=== PATIENT | male | born 1970 | race Two or more races ===

== ENCOUNTER 2023-11-12 13:17 | Outpatient (OUT) | payer OTHER, SELFPAY ==
--- NOTE | 2023-11-12 13:26 | XR_ITS ---
The [address] [address] Patient Name: ANGELLA FERNANDEZ MRN: [id number] date: 1970 Sex: M Assigned Patient Location: RAD Current Patient Location: [facility] Accession/Order Number: [id number] Exam Date: 11/12/2023 13:28 Report Date: 11/12/2023 14:20 At the request of: NON-STAFF PHYSICIAN Procedure: XR hip RT min 2V EXAM: Right hip. HISTORY: . Right Hip Pain . COMPARISON: None. TECHNIQUE: 2 views FINDINGS: No fracture or dislocation of the right hip is noted. Joint spaces well-maintained. Surrounding soft tissues are unremarkable. XR/XR hip RT min 2V IMPRESSION: Negative right hip. Electronically authenticated by: SAMIR GORMAN Date: 11/12/2023 14:20
== END 2023-11-12 13:18 | disposition home or self-care (01) ==
LOC: RAD 13:22
DX: M25.551 Pain in right hip (principal)
CPT/HCPCS: 73502

== ENCOUNTER 2023-12-29 17:13 | Inpatient (IN) | payer OTHER, SELFPAY ==
[2023-12-29 17:14] VITALS: BP 142/71; PULSE 101; TEMP 36.6; O2SAT 90; BMI 29.3
--- NOTE | 2023-12-29 17:24 | ED.ALCOHOL1 ---
HPI - Alcohol General Chief Complaint: Extremity Injury, Lower Stated Complaint: HIP PAIN Time Seen by Provider: 12/29/23 17:23 Source: patient Mode of arrival: ambulance Limitations: altered mental status Limitations comment: Alcohol intoxication History of Present Illness HPI narrative: This patient was brought to us by ambulance from a local alcohol rehab center for evaluation. He was just in the rehab program approximately a month ago but has now continued drinking. At their assessment today he was complaining of severe right hip pain and he clearly was intoxicated. He lives in [facility] near [place] but has been in this rehab center up in this community once before and is hopefully to get in again. He says he sees a Dr. Govea, orthopedic surgeon and saw him in [facility] and is considering surgery on his hip in 2 months, but nothing has been done so far. He says it has been due to wear and tear but not really specific traumatic event and he denies any new or recent trauma. He says he had at least 8-10 beers and some vodka over the last couple hours. Does not have any pain in his left hip or upper extremities no other trauma or injury. Related Data Home Medications ?Medication ?Instructions ?Recorded ?Confirmed amlodipine 10 mg tablet 10 mg PO DAILY 12/29/23 12/29/23 Allergies Allergy/AdvReac Type Severity Reaction Status Date / Time No Known Drug Allergies Allergy Verified 12/29/23 17:19 Exam Narrative Exam Narrative: Awake alert smells heavily of alcohol byproducts but he is cooperative at this time on arrival. Vital signs are as noted. While lying sitting up position he is able to bend his knee up and has no pain in the right knee when he does that but has some discomfort in the right hip. There is no evidence of dislocation. There is no external rotation or shortening of the hip. Neurovascular examination and pulses to the distal extremity are normal. He has spontaneous unrestricted movement of the left lower extremity and he has no injury or discomfort to palpation and movement of his upper extremities. He has no respiratory distress with normal pulse to palpation. Pulse exam straight pulse oximetry is slightly low as noted. However he had no wheeze rales or rhonchi. Constitutional Vital Signs, click to edit/add: Last Vital Signs Temp 97.9 F 12/29/23 17:14 Pulse 101 H 12/29/23 17:14 Resp 18 12/29/23 17:14 BP 142/71 H 12/29/23 17:14 Pulse Ox 90 L 12/29/23 17:14 O2 Del Method Room Air 12/29/23 17:14 Course Vital Signs Vital signs: Vital Signs Temperature 97.9 F 12/29/23 17:14 Pulse Rate 101 H 12/29/23 17:14 Respiratory Rate 18 12/29/23 17:14 Blood Pressure 142/71 H 12/29/23 17:14 Pulse Oximetry 90 L 12/29/23 17:14 Oxygen Delivery Method Room Air 12/29/23 17:14 Temperature 97.9 F 12/29/23 17:14 Pulse Rate 101 H 12/29/23 17:14 Respiratory Rate 18 12/29/23 17:14 Blood Pressure 142/71 H 12/29/23 17:14 Pulse Oximetry 90 L 12/29/23 17:14 Oxygen Delivery Method Room Air 12/29/23 17:14 MDM - Alcohol MDM Narrative Medical decision making narrative: Patient laboratory testing confirms both acute and chronic nutritional disorders related to his alcohol event. He is highly intoxicated. 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 At this time we will start replacing his magnesium and potassium. He will be given nonnarcotic analgesics. He will need IV hydration and stabilization as an inpatient my opinion. I will speak to the hospitalist in regards to these issues Lab Data Labs: Lab Results 12/29/23 12/29/23 Range/Units 17:40 18:12 WBC 7.7 (4.0-11.0) 10^3/uL RBC 4.50 L (4.70-6.10) 10^6/uL Hgb 15.0 (14.0-18.0) g/dL Hct 43.2 (42.0-54.0) % MCV 96.0 H (80.0-94.0) fL MCH 33.3 (25.9-34.0) pg MCHC 34.7 (29.9-35.2) g/dL RDW 15.4 H (11.0-15.0) % Plt Count 159 (150-450) 10^3/uL MPV 8.9 L (9.5-13.5) fL Neut % (Auto) 64.3 (43.0-75.0) % Lymph % (Auto) 17.0 L (20.5-60.0) % [place] % (Auto) 16.5 H (1.7-12.0) % Eos % (Auto) 0.8 L (0.9-7.0) % Baso % (Auto) 0.8 (0.2-2.0) % Neut # (Auto) 5.0 (1.4-6.5) 10^3/uL Lymph # (Auto) 1.3 (1.2-3.8) 10^3/uL [place] # (Auto) 1.3 H (0.3-0.8) 10^3/uL Eos # (Auto) 0.1 (0.0-0.7) 10^3/uL Baso # (Auto) 0.1 (0.0-0.1) 10^3/uL Abs Immat Gran (auto) 0.05 H (0.00-0.03) 10^3/uL Imm/Tot Granulo (auto) 0.6 H (0.0-0.5) % Sodium 139 (136-145) mmol/L Potassium 2.8 L* (3.5-5.1) mmol/L Chloride 98 (98-107) mmol/L Carbon Dioxide 28.4 (21.0-32.0) mmol/L Anion Gap 15.4 BUN 20.0 H (7.0-18.0) mg/dL Creatinine 0.94 (0.70-1.30) mg/dL Est GFR ( Amer) >60 (>=60) Est GFR (Non-Af Amer) >60 (>=60) BUN/Creatinine Ratio 21.3 Glucose 95 (74-106) mg/dL Calcium 8.7 (8.5-10.1) mg/dL Phosphorus 2.2 L (2.6-4.7) mg/dL Magnesium 1.5 L (1.8-2.4) mg/dL Total Bilirubin 1.8 H (0.2-1.0) mg/dL AST 103 H (15-37) U/L ALT 67 H (16-63) U/L Alkaline Phosphatase 98 (46-116) U/L Total Protein 6.7 (6.4-8.2) g/dL Albumin 3.2 L (3.4-5.0) g/dL Globulin 3.5 g/dL Albumin/Globulin Ratio 0.9 Urine Opiates Screen Negative (NEGATIVE) Ur Buprenorphine Scrn Negative (NEGATIVE) Ur Oxycodone Screen Negative (NEGATIVE) Urine Methadone Screen Negative (NEGATIVE) Ur Barbiturates Screen Negative (NEGATIVE) U Tricyclic Antidepress Negative (NEGATIVE) Ur Phencyclidine Scrn Negative (NEGATIVE) Ur Amphetamines Screen Negative (NEGATIVE) U Methamphetamines Scrn Negative (NEGATIVE) U Benzodiazepines Scrn Negative (NEGATIVE) Urine Cocaine Screen Negative (NEGATIVE) U Cannabinoids Screen Negative (NEGATIVE) Ethanol Quant 397 mg/dL Discharge Plan Discharge Chief Complaint: Extremity Injury, Lower Clinical Impression: Complication of electrolyte disorder, Acute pain of right hip, Acute alcohol intoxication Patient Disposition: Admitted as Observation Time of Disposition Decision: 18:41 Prescriptions / Home Meds: No Action amlodipine 10 mg tablet 10 mg PO DAILY Print Language: Grenadian Referrals: Physician,Non-Staff, MD [Primary Care Provider] - 1 week
--- NOTE | 2023-12-29 17:26 | XR_ITS ---
The [address] [address] Patient Name: ANGELLA FERNANDEZ MRN: [id number] date: 1970 Sex: M Assigned Patient Location: ER Current Patient Location: ED.MAIN Accession/Order Number: [id number] Exam Date: 12/29/2023 17:46 Report Date: 12/29/2023 18:09 At the request of: ANH GREGORY Procedure: XR chest 1V EXAM: XR chest 1V HISTORY: Dyspnea. COMPARISON: None. TECHNIQUE: AP erect portable chest radiograph performed. FINDINGS: The trachea is midline. The cardiomediastinal silhouette and hilar shadows are normal. There is mild elevation of the right hemidiaphragm. The lung hanson are clear. There is no pneumothorax or osseous abnormality. XR/XR chest 1V IMPRESSION: Mild elevation of the right hemidiaphragm. The AP erect portable chest radiograph is otherwise unremarkable. Electronically authenticated by: GABRIELLA BAUTISTA Date: 12/29/2023 18:09
[2023-12-29] MEDS: THIAMINE HCL 200 MG/2 ML VIAL 100 MG IM (17:43)
[2023-12-29] MEDS: 0.9 % SODIUM CHLORIDE 1,000 ML 999 ML IV (17:43)
--- OUTSIDE RECORDS SUMMARY | 2023-12-29 17:46 | XMS_ITS | CCD ---
Author Organization [facility] Care Team Providers Care Zone Supervisor Firearms Name Role Phone Apolinar Cameron Primary Care Provider Cameron II, DO Apolinar E Primary Care Provider Yoli HOWARD, Glenny Moreno Unavailable José Miguel SANTOS MD, John E Primary Care Provider [phone] CAMERON TOM, APOLINAR E Primary Care Unavailable Cameron II, DO Apolinar E Primary Care Provider Glenny Kent MD Unavailable Cameron II, DO Apolinar E Primary Care Provider [phone] Glenny Kent MD Unavailable MONIK JOHNSON Attending Unavailable NO PCP, NO PCP Primary Care Unavailable SELF, SELF Referring Unavailable MARIIA GOVEA Attending Unavailable CAMERON II, APOLINAR E Primary Care Unavailable CAMERON II, APOLINAR E Attending Unavailable CAMERON II, APOLINAR E Referring Unavailable CAMERON II, APOLINAR E Primary Care Unavailable TERESA MO Attending Unavailable CAMERON II, APOLINAR E Referring Unavailable CAMERON II, APOLINAR E Primary Care Unavailable SELF, SELF Referring Unavailable CAMERON II, APOLINAR E Attending Unavailable CAMERON II, APOLINAR E Primary Care Unavailable CAMERON II, APOLINAR E Referring Unavailable CAMERON II, APOLINAR E Attending Unavailable CAMERON II, APOLINAR E Primary Care Unavailable CAMERON II, APOLINAR E Referring Unavailable CAMERON II, APOLINAR E Primary Care Unavailable APOLINAR AGOSTO Attending Unavailable CAMERON II, APOLINAR E Attending Unavailable CAMERON II, APOLINAR E Referring Unavailable CAMERON II, APOLINAR E Primary Care Unavailable SELF, SELF Referring Unavailable CAMERON II, APOLINAR E Attending Unavailable CAMERON II, APOLINAR E Primary Care Unavailable IHSAN PINK Attending Unavailable CAMERON II, APOLINAR E Primary Care Unavailable HECTOR EDWARDS Admitting Unavailable MARTHA LUA Attending Unavailable CAMERON II, APOLINAR E Primary Care Unavailable HECTOR EDWARDS Admitting Unavailable APOLINAR CAMERON II Primary Care Unavailable SAMIR WOOTEN Attending Unavailable IHSAN PINK Admitting Unavailable AMY ODOM Attending Unavailable APOLINAR CAMERON II Primary Care Unavailable Medications Current Medications Medication Drug Class(es) Dates Sig (Normalized) Sig (Original) amoxicillin 875 mg / clavulanate 125 mg oral tablet (1 source) Penicillin-class Antibacterial Start: 10-02-2022 End: 10-12-2022 take 1 tablet by mouth every twelve hours Amoxicillin-clavu lanate (Augmentin) 875-125 MG tablet Take 1 tablet by mouth every 12 hours for 10 days. 20 tablet 0 10/02/2022 10/12/2022 Active atorvastatin 40 mg oral tablet (12 sources) HMG-CoA Reductase Inhibitor Start: 09-26-2023 End: 12-07-2023 take 1 tablet by mouth once daily Atorvastatin 40 MG tablet Take 1 tablet by mouth daily. 30 tablet 2 09/26/2023 Active dextromethorphan hydrobromide 2 mg/ml / guaiFENesin 20 mg/ml oral suspension (1 source) Uncompetitive X-ydhwfq-N-aspartat e Receptor Antagonist, Sigma-1 Agonist Start: 03-07-2022 guaiFENesin-dextr omethorphan (ROBITUSSIN DM) 100-10 MG/5ML syrup 5 mL lidocaine 0.05 mg/mg medicated patch (16 sources) Antiarrhythmic, Amide Local Anesthetic Start: 10-23-2023 End: 12-07-2023 lidocaine 5 % Patch patch Place 2 patches on skin every 24 hours. Max of 12 hours of application then remove. 60 patch 12/07/2023 Active melatonin 10 mg oral tablet (1 source) Start: 11-10-2023 Melatonin 10 MG tablet 11/10/2023 Active meloxicam 15 mg oral tablet (1 source) Nonsteroidal Anti-inflammatory Drug Start: 12-11-2023 take 1 tablet by mouth once daily Meloxicam 15 MG tablet Take 1 tablet by mouth daily. 30 tablet 1 12/11/2023 Active Multiple Vitamins-Minerals (Thera-M) tablet (9 sources) Start: 10-25-2023 take 1 tablet by mouth once daily Multiple Vitamins-Minerals (Thera-M) tablet Take 1 tablet by mouth daily. 30 tablet 10/25/2023 Active Start: 10-25-2023 take 1 tablet by gladis th once daily Multiple Vitamins-Minerals (Thera-M) tablet Take 1 tablet by mouth daily. 30 tablet 10/25/2023 Start: 10-25-2023 take 1 tablet by gladis th once daily Multiple Vitamins-Minerals (Thera-M) tablet Take 1 tablet by mouth daily. 30 tablet 0 10/25/2023 Active Start: 10-25-2023 take 1 tablet by gladis th once daily Multiple Vitamins-Minerals (Thera-M) tablet Take 1 tablet by mouth daily. 30 tablet 0 10/25/2023 thiamine 100 mg oral tablet (9 sources) Start: 12-07-2023 End: 12-05-2023 100 mg, Oral, EVERY 8 HOURS (0800/1600/2200), 15 doses, First dose on 12/07/23 at 0800, Last dose on [facility] 12/11/23 at 2200 Start: 12-07-2023 End: 12-05-2023 100 mg, Oral, EVERY 8 HOURS (0800/1600/2200), 15 doses, First dose on 12/07/23 at 0800, Last dose on [facility] 12/11/23 at 2200 Start: 11-10-2023 Thiamine 100 M G tablet 11/10/2023 Active Start: 10-24-2023 End: 12-04-2023 take 1 tablet by mouth once daily thiamine mononitrate 100 MG tablet Take 1 tablet by mouth daily. 30 tablet 10/25/2023 12/04/2023 Discontinued (Medication Reconciliation (suppress cancel msg)) Start: 03-06-2022 End: 03-06-2022 thiamine tablet 100 mg Completed/Discontinued Medications Medication Drug Class(es) Dates Sig (Normalized) Sig (Original) Acetaminophen (8 sources) Start: 12-06-2023 End: 12-07-2023 take 1 tablet by mouth every four hours as needed Acetaminophen (TYLENOL) tablet 650 mg Start: 12-04-2023 End: 12-05-2023 650 mg, Oral, EVERY 6 HOURS WHILE AWAKE, First dose on [facility] 12/04/23 at 1800, Until Discontinued, Maximum dose of acetaminophen is 4000 mg from all sources in 24 hours. Start: 12-04-2023 End: 12-04-2023 take 4000 mg by mouth every twenty-four hours 975 mg, Oral, ONCE, 1 dose, On [facility] 12/04/23 at 0945, Maximum dose of acetaminophen is 4000 mg from all sources in 24 hours. Start: 10-23-2023 End: 10-24-2023 take 975 mg by mouth every six hours, then take 4000 mg by mouth every twenty-four hours 975 mg, Oral, EVERY 6 HOURS, First dose on [facility] 10/23/23 at 1945, Until Discontinued Maximum dose of acetaminophen is 4000 mg from all sources in 24 hours. Start: 10-23-2023 End: 10-24-2023 take 1 tablet by mouth every four hours as needed Acetaminophen (TYLENOL) tablet 650 mg acetaminophen 325 mg / HYDROcodone bitartrate 5 mg oral tablet (4 sources) Opioid Agonist Start: 12-07-2023 End: 12-12-2023 take 1 tablet by mouth every six hours as needed hydroCODone-acetaminophen 5-325 MG tablet Indications: Pain of right hip Take 1 tablet by mouth every 6 hours as needed for up to 5 days. 20 tablet 12/07/2023 12/11/2023 Discontinued (Therapy completed) [id number] 200 actuat albuterol 0.09 mg/actuat metered dose inhaler (6 sources) beta2-Adren ergic Agonist Start: 10-02-2022 End: 10-23-2023 take 2 puff(s) by inhalation every six hours as needed for wheezing Albuterol (ProAir HFA) 108 (90 Base) MCG/ACT Aero Soln inhaler Inhale 2 puffs every 6 hours as needed for Wheezing for up to 10 days. 18 g 1 10/02/2022 10/23/2023 Discontinued (Medication Reconciliation (suppress cancel msg)) Start: 01-11-2021 End: 10-02-2022 take 2 puff(s) by inhalation every six hours as needed for wheezing albuterol (ProAir HFA) 108 (90 Base) MCG/ACT Aero Soln inhaler Inhale 2 puffs every 6 hours as needed for Wheezing for up to 10 days. 1 Inhaler 0 01/11/2021 10/02/2022 Discontinued (Reorder) aluminum hydroxide 64 mg/ml oral suspension (5 sources) Start: 12-04-2023 End: 12-07-2023 take 640 mg by mouth every six hours as needed Start: 10-23-2023 End: 10-24-2023 take 640 mg by mouth every six hours as needed 640 mg, Oral, EVERY 6 HOURS NEEDED, Starting on [facility] 10/23/23 at 1939, Until Fri10/24/23 at 2338, Indigestion, if SCr greater than 1.4. SHAKE WELL aluminum hydroxide 40 mg/ml / magnesium hydroxide 40 mg/ml / simethicone 4 mg/ml oral suspension (5 sources) Start: 12-04-2023 End: 12-07-2023 take 30 mL by mouth every six hours as needed Start: 10-23-2023 End: 10-24-2023 take 30 mL by mouth every six hours as needed 30 mL, Oral, EVERY 6 HOURS NEEDED, Starting on [facility] 10/23/23 at 1939, Until Fri10/24/23 at 2338, Other, Indigestion, if SCr Less than or equal to 1.4 SHAKE WELL amLODIPine 5 mg oral tablet (20 sources) Dihydropyridine Calcium Channel Eunice Start: 12-04-2023 End: 12-07-2023 take 10 mg by mouth once daily 10 mg, Oral, DAILY, First dose on Fri12/06/23 at 0900, Until Discontinued Start: 10-24-2023 End: 10-24-2023 take 10 mg by mouth once daily 10 mg, Oral, DAILY, Fir st dose on Fri10/24/23 at 0900, Until Discontinued Start: 09-15-2023 take 1 tablet by gladis th once daily amLODIPine 10 MG tablet TAKE 1 TABLET BY MOUTH DAILY 30 tablet 2 09/15/2023 Active Start: 08-18-2023 take 1 tablet by gladis th once daily amLODIPine 10 MG tablet TAKE ONE TABLET BY MOUTH DAILY 30 tablet 0 08/18/2023 Active Start: 06-03-2023 End: 08-29-2023 take 1 tablet by mouth once daily amLODIPine 5 MG tablet Take 1 tablet by mouth daily. 0 06/03/2023 08/29/2023 Discontinued (Medication Reconciliation (suppress cancel msg)) Start: 08-19-2022 End: 01-31-2023 take 1 tablet by mouth once daily amLODIPine 10 MG tablet Take 1 tablet by mouth daily. 30 tablet 2 01/31/2023 Active Start: 09-14-2021 End: 10-25-2021 take 1 tablet by mouth once daily amLODIPine 10 MG tablet Take 1 tablet by mouth daily. 30 tablet 0 09/14/2021 10/25/2021 Discontinued (Reorder) benzonatate 200 mg oral capsule (6 sources) Non-narcotic Antitussive Start: 01-11-2021 End: 10-23-2023 take 1 capsule by mouth three times daily as needed for cough benzonatate 200 MG capsule Take 1 capsule by mouth 3 times daily as needed for Cough for up to 10 days. 30 capsule 0 01/11/2021 10/23/2023 Discontinued (Medication Reconciliation (suppress cancel msg)) calcium chloride 0.0014 meq/ml / potassium chloride 0.004 meq/ml / sodium chloride 0.103 meq/ml / sodium lactate 0.028 meq/ml injectable solution (2 sources) Start: 12-06-2023 End: 12-07-2023 Intravenous, at 100 mL/hr, CONTINUOUS, Starting on 12/06/23 at 1430, Until 12/07/23 at 0729 calcium gluconate IVPB 1 g in 0.9% NaCl IVPB 1,000 mg (2 sources) Start: 12-06-2023 End: 12-07-2023 calcium gluconate IVPB 1 g in 0.9% NaCl IVPB 1,000 mg cloNIDine hydrochloride 0.1 mg oral tablet (1 source) Central alpha-2 Adrenergic Agonist Start: 05-31-2023 End: 08-29-2023 take 1 tablet by mouth once daily cloNIDine 0.1 MG tablet Take 1 tablet by mouth daily. 0 05/31/2023 08/29/2023 Discontinued (Medication Reconciliation (suppress cancel msg)) cyclobenzaprine hydrochloride 10 mg oral tablet (20 sources) Muscle Relaxant Start: 10-14-2023 End: 10-23-2023 take 1 tablet by mouth at bedtime Cyclobenzaprine 5 MG tablet Take 1 tablet by mouth at bedtime. 30 tablet 2 10/14/2023 10/23/2023 Discontinued (Medication Reconciliation (suppress cancel msg)) Start: 02-28-2022 End: 01-31-2023 take 1 tablet by mouth at bedtime Cyclobenzaprine 5 MG tablet Take 1 tablet by mouth at bedtime. 30 tablet 2 01/31/2023 Active Start: 10-25-2021 End: 12-07-2023 take 0.5 tablet by m outh three times daily as needed for muscle spasms Cyclobenzaprine 10 MG tablet Take 0.5 tablets by mouth 3 times daily as needed for Muscle spasms. 0 Active Dextrose 5% and sodium chloride 0.9% 1,000 mL with Potassium chloride 20 mEq, Sodium bicarbonate 100 mEq IV solution (2 sources) Start: 12-06-2023 End: 12-06-2023 Intravenous, CONTINUOUS, Starting on 12/06/23 at 0800, Until 12/06/23 at 1420 diazePAM 2 mg oral tablet (1 source) Benzodiazepine Start: 03-07-2022 End: 03-07-2022 diazePAM (VALIUM) tablet 2 mg diclofenac sodium 75 mg delayed release oral tablet (7 sources) Nonsteroidal Anti-inflammatory Drug End: 12-11-2023 take 1 tablet by mouth twice daily as needed for pain diclofenac EC [address] tablet Take 1 tablet by mouth 2 times daily as needed for Mild Pain or Moderate Pain. 12/11/2023 Discontinued (Therapy completed) doxepin hydrochloride 10 mg oral capsule (1 source) Tricyclic Antidepressant Start: 03-07-2021 End: 10-25-2021 take 1 capsule by mouth at bedtime as needed doxepin 10 MG capsule Take 1 capsule by mouth at bedtime as needed. 90 capsule 1 03/07/2021 10/25/2021 Discontinued (Alternate therapy) escitalopram 10 mg oral tablet (5 sources) Serotonin Reuptake Inhibitor Start: 10-02-2022 End: 10-23-2023 take 1 tablet by mouth once daily Escitalopram (Lexapro) 10 MG tablet Take 1 tablet by mouth daily. 30 tablet 1 10/02/2022 10/23/2023 Discontinued (Medication Reconciliation (suppress cancel msg)) 2 ml famotidine 10 mg/ml injection (1 source) Histamine-2 Receptor Antagonist Start: 04-30-2023 End: 04-30-2023 famotidine (PF) (PEPCID) injection 20 mg folic acid 1 mg oral tablet (5 sources) Start: 12-04-2023 End: 12-05-2023 take 1 mg by mouth once daily 1 mg, Oral, DAILY, First dose on Fri12/04/23 at 1345, Until Discontinued Start: 10-24-2023 End: 10-24-2023 take 1 mg by mouth once daily 1 mg, Oral, DAILY, First dose on Fri10/24/23 at 0900, Until Discontinued Start: 05-29-2023 End: 08-29-2023 take 1 tablet by mouth once daily Folic acid 1 MG tablet Take 1 tablet by mouth daily. 0 05/29/2023 08/29/2023 Discontinued (Medication Reconciliation (suppress cancel msg)) Start: 03-06-2022 End: 03-06-2022 folic acid (FOLVITE) tablet 1 mg gabapentin 300 mg oral capsule (3 sources) Anti-epileptic Agent Start: 02-26-2023 End: 10-23-2023 take 1 capsule by mouth at bedtime Gabapentin 300 MG capsule Indications: Periodic limb movement disorder Take 1 capsule by mouth at bedtime. 23 capsule 0 02/26/2023 10/23/2023 Discontinued (Medication Reconciliation (suppress cancel msg)) 1 ml heparin sodium, porcine 5000 unt/ml prefilled syringe (2 sources) Unfractionated Heparin, Anti-coagulant Start: 12-04-2023 End: 12-05-2023 5,000 Units, Subcutaneous, EVERY 12 HOURS, First dose on Fri12/04/23 at 2100, Until Discontinued, HIGH RISK MEDICATION, MONITOR PLATELET COUNT, CALL IF DECREASED BY GREATER THAN 50% OR LESS THAN 100,00 1 ml HYDROmorphone hydrochloride 1 mg/ml cartridge (2 sources) Opioid Agonist Start: 12-04-2023 End: 12-04-2023 1 mg, Intravenous, ONCE, 1 dose, On Fri12/04/23 at 1215 hydrOXYzine hydrochloride 25 mg oral tablet (5 sources) Antihistamine Start: 10-02-2022 End: 10-23-2023 take 1 tablet by mouth every six hours as needed hydrOXYzine HCl 25 MG tablet Take 1 tablet by mouth every 6 hours as needed for Anxiety. 30 tablet 1 10/02/2022 10/23/2023 Discontinued (Medication Reconciliation (suppress cancel msg)) ibuprofen 600 mg oral tablet (1 source) Nonsteroidal Anti-inflammatory Drug Start: 06-05-2023 End: 08-29-2023 take 1 tablet by mouth every six hours as needed Ibuprofen 600 MG tablet Take 1 tablet by mouth every 6 hours as needed. 0 06/05/2023 08/29/2023 Discontinued (Medication Reconciliation (suppress cancel msg)) Iopamidol (1 source) Radiographic Contrast Agent Start: 10-23-2023 End: 10-23-2023 Iopamidol (370 mg/mL) (ISOVUE) 76 % 75 mL 1 ml ketorolac tromethamine 15 mg/ml cartridge (10 sources) Nonsteroidal Anti-inflammatory Drug, Cyclooxygenase Inhibitor Start: 12-06-2023 End: 12-07-2023 take 15 mg intravenously every six hours as needed 15 mg, Intravenous, EVERY 6 HOURS NEEDED, 3 doses, Starting on 12/06/23 at 1341, Until 12/07/23 at 0758, Moderate Pain, Maximum of 5 days of therapy. Start: 12-06-2023 End: 12-06-2023 15 mg, Intravenous, ONCE, 1 dose, On 12/06/23 at 0145 Start: 12-05-2023 End: 12-05-2023 take 1 tablet by mouth every four hours as needed ketorolac 10 MG tablet Take 1 tablet by mouth every 4 hours as needed for Mild Pain for up to 5 days. Max of 40mg/day. Max of 5 days. 20 tablet 12/05/2023 12/05/2023 Discontinued (Stop Taking at Discharge) Start: 12-04-2023 End: 12-05-2023 take 15 mg intravenously every six hours as needed 15 mg, Intravenous, EVERY 6 HOURS NEEDED, Starting on [facility] 12/04/23 at 1757, Until 12/05/23 at 1228, Moderate Pain, Maximum of 5 days of therapy. Start: 10-23-2023 End: 10-24-2023 take 15 mg intravenously every six hours as needed Ketorolac (TORADOL) injection 15 mg Start: 10-23-2023 End: 10-23-2023 Ketorolac (TORADOL) injectio n 15 mg levETIRAcetam 500 mg oral tablet (1 source) Start: 05-29-2023 End: 08-29-2023 take 1 tablet by mouth twice daily levETIRAcetam 500 MG tablet Take 1 tablet by mouth 2 times daily. 0 05/29/2023 08/29/2023 Discontinued (Medication Reconciliation (suppress cancel msg)) 1 ml LORazepam 2 mg/ml injection (10 sources) Benzodiazepine Start: 12-04-2023 End: 12-07-2023 take 2 mg intravenously every hour as needed 2 mg, Intravenous, EVERY 1 HOUR NEEDED, Starting on 12/06/23 at 0225, Until 12/07/23 at 1232, Other, For Seizure, Extravasation Risk Start: 10-24-2023 End: 12-04-2023 LORazepam 0.5 MG tablet Indications: Alcohol intoxication in active alcoholic without complication Take 1 tab 10/24 at bedtime, 1 tab 10/25 with breakfast and 1 tab 10/25 with dinner 3 tablet 10/24/2023 12/04/2023 Discontinued (Medication Reconciliation (suppress cancel msg)) Start: 10-23-2023 End: 10-24-2023 take 2 mg intravenously every hour as needed 2 mg, Intravenous, EVERY 1 HOUR NEEDED, Starting on [facility] 10/23/23 at 1939, Until 10/24/23 at 2338, Other, For Seizure Extravasation Risk Start: 04-30-2023 End: 04-30-2023 LORazepam (ATIVAN) injection 1 mg LORazepam (ATIVAN) injection 1-4 mg (3 sources) Start: 12-06-2023 End: 12-07-2023 LORazepam (ATIVAN) injection 1-4 mg Start: 10-23-2023 End: 10-24-2023 LORazepam (ATIVAN) injection 1-4 mg 50 ml magnesium sulfate 40 mg/ml injection (2 sources) Start: 12-06-2023 End: 12-07-2023 2 g, Intravenous, at 50 mL/hr, Administer over 1 Hours, ADMINISTER DIRECTED, Starting on 12/06/23 at 1350, Until 12/07/23 at 1232, Other, Magnesium Replacement Protocol, Telemetry Required Use only if SCr Less than or = to 2 Mg/DL. For Magnesium Level 1.4 - 1.7 mEq/L Administer 2 grams over 60 minutes once For Magnesium Level 0.6-1.3 mEq Administer 2 grams over 60 minutes x 2 (for total dose of 4 grams) and repeat Magnesium 4 hours after infusion complete 1 ml morphine sulfate 2 mg/ml cartridge (5 sources) Opioid Agonist Start: 12-06-2023 End: 12-06-2023 4 mg, Intravenous, ONCE, 1 dose, On [facility] 12/06/23 at 0615 Start: 12-04-2023 End: 12-04-2023 4 mg, Intravenous, ONCE, 1 d ose, On [facility] 12/04/23 at 1030 Start: 10-23-2023 End: 10-23-2023 Morphine (PF) injection 4 mg multiple vitamin (MVI) 10 mL, Folic acid 1 mg, Thiamine (Vitamin B-1) 100 mg in Sodium chloride 0.9%, with overfill 1,061.2 mL (total volume) infusion (2 sources) Start: 12-06-2023 End: 12-06-2023 Intravenous, ONCE, 1 dose, On [facility] 12/06/23 at 0830 naproxen 250 mg oral tablet (3 sources) Nonsteroidal Anti-inflammatory Drug Start: 12-04-2023 End: 12-04-2023 take 1 dose by mouth once at mealtime 500 mg, Oral, ONCE, 1 dose, On [facility] 12/04/23 at 0945, Give with food End: 10-25-2021 take 1-2 tablets by mouth twice daily as needed naproxen 500 MG Tab take 500 mg by mouth 2 times daily as needed.. 1-2 tablets 0 10/25/2021 Discontinued 24 hr nicotine 0.875 mg/hr transdermal system (2 sources) Cholinergic Nicotinic Agonist Start: 12-04-2023 End: 12-05-2023 apply 1 dose transdermal route every twenty-four hours 1 patch, Transdermal, EVERY 24 HOURS, First dose on [facility] 12/04/23 at 1800, Until Discontinued omeprazole 20 mg delayed release oral capsule (1 source) Proton Pump Inhibitor Start: 05-29-2023 End: 08-29-2023 take 1 capsule by mouth once daily omeprazole [address] capsule Take 1 capsule by mouth daily. 0 05/29/2023 08/29/2023 Discontinued (Medication Reconciliation (suppress cancel msg)) 2 ml ondansetron 2 mg/ml injection (7 sources) Serotonin-3 Receptor Antagonist Start: 12-06-2023 End: 12-07-2023 take 4 mg intravenously every six hours as needed 4 mg, Intravenous, EVERY 6 HOURS NEEDED, Starting on 12/06/23 at 0532, Until 12/07/23 at 1232, Nausea / Vomiting Start: 12-06-2023 End: 12-06-2023 4 mg, Intravenous, ONCE, 1 d ose, On 12/06/23 at 0215 Start: 10-23-2023 End: 10-23-2023 Ondansetron 4mg/2ml (ZOFRAN) injection 4 mg Start: 05-29-2023 End: 08-29-2023 take 1 tablet by mouth every eight hours as needed Ondansetron 8 MG Tab Dispersible tablet Take 1 tablet by mouth every 8 hours as needed. 0 05/29/2023 08/29/2023 Discontinued (Medication Reconciliation (suppress cancel msg)) Start: 04-30-2023 End: 04-30-2023 Ondansetron 4mg/2ml (ZOFRAN) injection 4 mg Ondansetron 4mg/2ml (ZOFRAN) injection 4 mg (3 sources) Start: 12-04-2023 End: 12-05-2023 take 4 mg intravenously every six hours as needed Ondansetron 4mg/2ml (ZOFRAN) injection 4 mg Start: 10-23-2023 End: 10-24-2023 take 4 mg intravenously every six hours as needed Ondansetron 4mg/2ml (ZOFRAN) injection 4 mg oxyCODONE hydrochloride 5 mg oral tablet (6 sources) Opioid Agonist Start: 12-06-2023 End: 12-07-2023 take 1 tablet by mouth every six hours as needed 5 mg, Oral, EVERY 6 HOURS NEEDED, Starting on 12/06/23 at 0821, Until 12/07/23 at 1232, Severe Pain Start: 12-06-2023 End: 12-06-2023 take 1 dose by mouth once 5 mg, Oral, ONCE, 1 dose, On 12/06/23 at 0815 Start: 12-04-2023 End: 12-04-2023 take 1 dose by mouth once 5 mg, Oral, ONCE, 1 dose, On [facility] 12/04/23 at 0945 pantoprazole 40 mg delayed release oral tablet (2 sources) Proton Pump Inhibitor Start: 12-06-2023 End: 12-07-2023 take 40 mg by mouth once daily 40 mg, Oral, DAILY, First dose on 12/06/23 at 0900, Until Discontinued, Swallow whole; do not crush or chew., Indications: GERD PHENobarbital 32 mg oral tablet (1 source) Start: 05-30-2023 End: 08-29-2023 take 1 tablet by mouth twice daily phenobarbital 30 MG tablet Take 1 tablet by mouth 2 times daily. 0 05/30/2023 08/29/2023 Discontinued (Medication Reconciliation (suppress cancel msg)) Potassium Chloride (4 sources) Start: 12-06-2023 End: 12-07-2023 Potassium chloride (K-DUR) tablet ER 20-40 mEq Start: 12-05-2023 End: 12-05-2023 take 1 dose by mouth once 40 mEq, Oral, ONCE, 1 dose, On Fri12/05/23 at 0800 predniSONE 20 mg oral tablet (7 sources) Start: 10-02-2022 End: 10-23-2023 predniSONE 20 MG tablet Days 1-3 3 , 4-6 2, 7-9 1 18 tablet 0 10/02/2022 10/23/2023 Discontinued (Medication Reconciliation (suppress cancel msg)) Start: 01-11-2021 End: 10-02-2022 take 2 tablets by mouth once daily predniSONE 20 MG tablet Take 2 tablets by mouth daily for 5 days. 10 tablet 0 01/11/2021 10/02/2022 Discontinued 1 ml promethazine hydrochloride 25 mg/ml injection (2 sources) Phenothiazine Start: 12-06-2023 End: 12-06-2023 inject 1 dose by intramuscular injection once 12.5 mg, Intramuscular, ONCE, 1 dose, On 12/06/23 at 0300, Extravasation Risk. AVOID intra-arterial administration; necrosis & gangrene have resulted. Hand, wrist or foot veins SHOULD BE AVOIDED. rOPINIRole 0.25 mg oral tablet (1 source) Nonergot Dopamine Agonist End: 10-25-2021 rOPINIRole 0.25 MG Tab take 0.25 mg by mouth.. titration to 1mg nightly 0 10/25/2021 Discontinued 5 ml sodium chloride 9 mg/ml injection (20 sources) Start: 12-06-2023 End: 12-06-2023 1,000 mL, Intravenous, at 999 mL/hr, ONCE, 1 dose, On 12/06/23 at 0815 Start: 12-04-2023 End: 12-04-2023 1,000 mL, Intravenous, at 99 9 mL/hr, ONCE, 1 dose, On [facility] 12/04/23 at 1345 Start: 12-04-2023 End: 12-07-2023 take 1 mL intravenously every hour Intravenous, at 100 mL/hr, NEEDED, Starting on 12/06/23 at 0225, Until 12/07/23 at 1232, Carrier Fluid- see admin instructions, 0.9% NaCl 250 ml to be used as carrier fluid and to flush the line as needed for intermittent small volume or piggyback medication of 100 ml or less without any maintenance IV fluid or incompatible IV fluid infusing. Infusion of the carrier fluid will be a volume of 20 ml at a rate of 100 ml/hr. Infuse carrier fluid after completion of the piggyback medication. Run as Primary IV. NOT intended for KVO. Start: 12-04-2023 End: 12-07-2023 5 mL, Intravenous, NEEDED , Starting on 12/06/23 at 0225, Until 12/07/23 at 1232, Flush, Administer before and after IV medications. Start: 10-23-2023 End: 10-24-2023 5 mL, Intravenous, NEEDED , Starting on [facility] 10/23/23 at 1939, Until 10/24/23 at 2338, Flush Administer before and after IV medications. Start: 04-30-2023 End: 04-30-2023 Sodium chloride 0.9% IV solu tion 1,000 mL Start: 04-30-2023 End: 04-30-2023 sodium chloride flush 0.9 % injection 5 mL Start: 03-06-2022 End: 03-06-2022 0.9 % sodium chloride bolus sodium chloride 0.9 % 1,000 mL with folic acid 1 mg, adult multi-vitamin with vitamin k 10 mL, thiamine 100 mg (1 source) Start: 11-27-2019 End: 11-27-2019 sodium chloride 0.9 % 1,000 mL with folic acid 1 mg, adult multi-vitamin with vitamin k 10 mL, thiamine 100 mg 5 ml sodium phosphate, dibasic 142 mg/ml / sodium phosphate, monobasic 276 mg/ml injection (2 sources) Start: 12-06-2023 End: 12-07-2023 15 mmol, Intravenous, Administer over 5 Hours, ADMINISTER DIRECTED, Starting on 12/06/23 at 1350, Until 12/07/23 at 1232, See admin instructions, Phosphorus Replacement Protocol, Telemetry Required Use only if SCr Less than or = to 2 Mg/DL For Phosphorus level of 1.7 to 2.2 Mg/DL Administer 15 mMol IVPB over 5 hours once For Phosphorus level Less than 1.7 Administer 15 mMol IVPB x2 Infuse each at 5 mMol/hour for total infusion time of 6 hours. Repeat Phosphorus 4 hours after infusions complete. Thera-M tablet 1 tablet (3 sources) Start: 12-04-2023 End: 12-05-2023 take 1 tablet by mouth once daily 1 tablet, Oral, DAILY, First dose on Vicenta 12/04/23 at 1345, Until Discontinued Start: 10-24-2023 End: 10-24-2023 take 1 tablet by mouth once daily 1 tablet, Oral, DAILY, First dose on Fri10/24/23 at 0900, Until Discontinued thiamine (B-1) 100 mg in Sodium chloride 0.9% 51 mL (total volume) IVPB (3 sources) Start: 12-04-2023 End: 12-05-2023 100 mg, Intravenous, at 102 mL/hr, Administer over 30 Minutes, DAILY, 3 doses, First dose on Vicenta 12/04/23 at 1345, Last dose on 12/06/23 at 0900 Start: 10-24-2023 End: 10-24-2023 100 mg, Intravenous, at 102 mL/hr, Administer over 30 Minutes, DAILY, 3 doses, First dose on Fri10/24/23 at 0900, Last dose on Fri10/26/23 at 0900 traMADol hydrochloride 50 mg oral tablet (2 sources) Opioid Agonist Start: 10-15-2023 End: 10-23-2023 take 1 tablet by mouth every six hours as needed traMADol 50 MG tablet Indications: Neuralgia of left upper extremity , Episodic tension-type headache, not intractable Take 1 tablet by mouth every 6 hours as needed for up to 30 doses. 30 tablet 0 10/15/2023 10/23/2023 Discontinued (Medication Reconciliation (suppress cancel msg)) Start: 08-29-2023 End: 09-17-2023 take 1 tablet by mouth every six hours as needed traMADol 50 MG tablet Indications: Neuralgia of left upper extremity , Episodic tension-type headache, not intractable Take 1 tablet by mouth every 6 hours as needed for up to 30 doses. 30 tablet 0 08/29/2023 09/17/2023 Active traZODone hydrochloride 50 mg oral tablet (6 sources) Serotonin Reuptake Inhibitor Start: 09-07-2020 End: 10-23-2023 take 1 tablet by mouth once daily in the evening traZODone 50 MG tablet TAKE ONE TABLET BY MOUTH EVERY EVENING 15 tablet 0 09/07/2020 10/23/2023 Discontinued (Medication Reconciliation (suppress cancel msg)) Problems Active Problems Problem Classification Problem Date Documented Da te Episodic/Chronic Alcohol-related disorders (20 sources) Alcohol intoxication; Translations: [Alcohol dependence with intoxication, uncomplicated] Onset: 10-23-2023 10-24-2023 Chronic Alcohol-related disorders (2 sources) Alcohol intoxication; Translations: [Alcohol use, unspecified with intoxication, unspecified] Onset: 11-09-2023 Episodic Anxiety disorders (1 source) Panic disorder; Translations: [Panic disorder [episodic paroxysmal anxiety]] Chronic Essential hypertension (17 sources) Benign essential hypertension; Translations: [Essential (primary) hypertension] Onset: 04-17-2016 Chronic Headache; including migraine (4 sources) Muscular headache ; Translations: [Tension-type headache, unspecified, not intractable] Onset: 08-29-2023 Chronic Hypertension with complications and secondary hypertension (4 sources) Hypertensive urgency ; Translations: [Hypertensive urgency] Onset: 12-04-2023 12-04-2023 Chronic Immunizations and screening for infectious disease (1 source) Requires vaccination; Translations: [Encounter for immunization] Episodic Miscellaneous mental health disorders (3 sources) Primary insomnia; Translations: [Primary insomnia] Onset: 01-31-2023 Chronic Nonspecific chest pain (4 sources) Chest pain; Translations: [Chest pain, unspecified] Onset: 10-23-2023 04-30-2023 Episodic Osteoarthritis (7 sources) Osteoarthritis of right hip joint; Translations: [Unilateral primary osteoarthritis, right hip] Onset: 10-31-2023 12-05-2023 Chronic Other bone disease and musculoskeletal deformities (1 source) 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; Translations: [Idiopathic aseptic necrosis of right femur] 12-11-2023 Chronic Other bone disease and musculoskeletal deformities (2 sources) Idiopathic aseptic necrosis of right femur; Translations: [Idiopathic aseptic necrosis of right femur] Onset: 12-11-2023 Chronic Other connective tissue disease (1 source) Neuralgia of left upper limb; Translations: [Neuralgia and neuritis, unspecified] 08-29-2023 Episodic Other connective tissue disease (2 sources) Trochanteric bursitis, right hip; Translations: [Trochanteric bursitis, right hip] Onset: 10-31-2023 Episodic Other hereditary and degenerative nervous system conditions (2 sources) Restless legs; Translations: [Restless legs syndrome] Chronic Other hereditary and degenerative nervous system conditions (2 sources) Restless legs syndrome; Translations: [Restless legs syndrome] Onset: 01-31-2023 Chronic Other nervous system disorders (2 sources) Other chronic pain; Translations: [Other chronic pain] Onset: 12-06-2023 Chronic Other nervous system disorders (2 sources) Anesthesia of skin; Translations: [Anesthesia of skin] Onset: 10-13-2023 Episodic Other non-traumatic joint disorders (1 source) Anterior knee pain; Translations: [Pain in right knee] Episodic Other non-traumatic joint disorders (9 sources) Hip pain; Translations: [Pain in unspecified hip] Onset: 12-04-2023 12-04-2023 Episodic Other non-traumatic joint disorders (2 sources) Pain in right hip joint; Translations: [Pain in right hip] 12-07-2023 Episodic Other non-traumatic joint disorders (2 sources) Pain in right hip; Translations: [Pain in right hip] Onset: 12-06-2023 Episodic Other nutritional; endocrine; and metabolic disorders (11 sources) Obese class I; Translations: [Obesity, unspecified] Onset: 03-07-2021 03-07-2021 Chronic Residual codes; unclassified (2 sources) Idiopathic sleep related nonobstructive alveolar hypoventilation; Translations: [Idiopathic sleep related nonobstructive alveolar hypoventilation] Onset: 10-31-2023 Chronic Residual codes; unclassified (2 sources) Periodic limb movement disorder; Translations: [Periodic limb movement disorder] Onset: 02-18-2023 Chronic Residual codes; unclassified (2 sources) Obstructive sleep apnea (adult) (pediatric); Translations: [Obstructive sleep apnea (adult) (pediatric)] Onset: 02-18-2023 Chronic Residual codes; unclassified (1 source) Alcoholism; Translations: [Alcohol use disorder] 04-30-2023 Episodic Residual codes; unclassified (1 source) Tobacco user; Translations: [Tobacco use] 12-11-2023 Episodic Residual codes; unclassified (2 sources) Tobacco use; Translations: [Tobacco use] Onset: 12-11-2023 Episodic Unclassified (1 source) Alcohol use, unspecified with withdrawal, unspecified; Translations: [Alcohol use, unspecified with withdrawal, unspecified] Onset: 12-06-2023 Unclassified (1 source) Alcohol use, unspecified, uncomplicated; Translations: [Alcohol use, unspecified, uncomplicated] Onset: 04-30-2023 Past or Other Problems Problem Classification Problem Date Documented Da te Episodic/Chronic Cardiac dysrhythmias (11 sources) Bradycardia; Translations: [Bradycardia, unspecified] Onset: 04-17-2016 04-17-2016 Episodic Chronic obstructive pulmonary disease and bronchiectasis (12 sources) Bronchitis; Translations: [Bronchitis, not specified as acute or chronic] Onset: 01-11-2021 01-11-2021 Episodic Conditions associated with dizziness or vertigo (1 source) Dizziness; Translations: [Dizziness] Episodic Mood disorders (10 sources) Mood disorders Onset: 10-02-2022 Resolved: 10-02-2022 10-02-2022 Other connective tissue disease (2 sources) Neuralgia and neuritis, unspecified; Translations: [Neuralgia and neuritis, unspecified] Onset: 08-29-2023 Episodic Other non-traumatic joint disorders (2 sources) Pain in right knee; Translations: [Pain in right knee] Onset: 05-12-2023 Episodic Other non-traumatic joint disorders (2 sources) Pain in left knee; Translations: [Pain in left knee] Onset: 02-07-2023 Episodic Other screening for suspected conditions (not mental disorders or infectious disease) (3 sources) Patient encounter status; Translations: [Encounter for screening for malignant neoplasm of prostate] Onset: 01-31-2023 Episodic Unclassified (1 source) Alcohol use, unspecified with withdrawal, unspecified; Translations: [Alcohol use, unspecified with withdrawal, unspecified] Onset: 12-06-2023 Unclassified (1 source) Alcohol use, unspecified, uncomplicated; Translations: [Alcohol use, unspecified, uncomplicated] Onset: 04-30-2023 Results Test Name Value Interpretation Reference Range Facility ECGon 12-08-2023 Electrocardiogram [facility] Test Date: 2023-12-06 Pat Name: ANGELLA FERNANDEZ Department: Room: ED02 Gender: Male 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1970 Requested By: [id number] Order Number: [id number] Reading MD: Moncho Sutherland Measurements Intervals [place] Rate: 112 P: 41 SD: 144 QRS: -19 QRSD: 84 T: 61 QT: 348 QTc: 475 Interpretive Statements Sinus tachycardia Electronically Signed On 12-08-2023 14:17:17 EDT by Moncho Sutherland [facility] Comment on above: Order Comment: Vet-n o Electrocardiogram [facility] Test Date: 2023-12-06 Pat Name: ANGELLA FERNANDEZ Department: Room: ED02 Gender: Male 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1970 Requested By: [id number] Order Number: [id number] Reading MD: Moncho Sutherland Measurements Intervals [place] Rate: 118 P: 42 SD: 138 QRS: -22 QRSD: 82 T: 90 QT: 336 QTc: 470 Interpretive Statements Sinus tachycardia Left ventricular hypertrophy with repolarization abnormality (R in aVL) Electronically Signed On 12-08-2023 14:17:02 EDT by Moncho Sutherland [facility] Comment on above: Order Comment: Vet-n o CBC WITH DIFFERENTIALon 11-27 Basophils (Bld) [#/Vol] 0.04 10*3/uL [facility] Comment on above: Performed By: #### C BCD, BASIC #### [address] [address] Basophils/100 WBC (Bld) 0.6 % Normal 0.0-2.0 [facility] [place] Comment on above: Performed By: #### C BCD, BASIC #### [address] [address] Eosinophils (Bld) [#/Vol] 0.12 10*3/uL Normal 0.00-0.50 [facility] [place] Comment on above: Performed By: #### C BCD, BASIC #### [address] [address] Eosinophils/100 WBC (Bld) 1.7 % Normal 0.0-4.0 [facility] [place] Comment on above: Performed By: #### C BCD, BASIC #### [address] [address] Erythrocyte distribution width (RBC) [Ratio] 13.5 % Normal 11.4-14.4 [facility] [place] Comment on above: Performed By: #### C BCD, BASIC #### [address] [address] Hematocrit (Bld) [Volume fraction] 41.4 % Normal 34.3-53.1 [facility] [place] Comment on above: Performed By: #### C BCD, BASIC #### [address] [address] Hemoglobin (Bld) [Mass/Vol] 13.7 g/dL Normal 11.4-17.7 [facility] [place] Comment on above: Performed By: #### C BCD, BASIC #### [address] [address] Lymphocytes (Bld) [#/Vol] 1.83 10*3/uL Normal 1.00-4.80 [facility] [place] Comment on above: Performed By: #### C BCD, BASIC #### [address] [address] MCH (RBC) [Entitic mass] 31.6 pg Normal 26.2-32.7 [facility] [place] Comment on above: Performed By: #### C BCD, BASIC #### [address] [address] MCHC (RBC) [Mass/Vol] 33.1 g/dL Normal 31.6-35.0 [facility] [place] Comment on above: Performed By: #### Kelly SIMON, BASIC #### [address] [address] MCV (RBC) [Entitic vol] 95.6 fL Normal 81.6-95.6 [facility] [place] Comment on above: Performed By: #### Kelly SIMON, BASIC #### [address] [address] Monocytes (Bld) [#/Vol] 0.40 10*3/uL Normal 0.20-1.20 [facility] [place] Comment on above: Performed By: #### Kelly SIMON, BASIC #### [address] [address] Monocytes/100 WBC (Bld) 5.6 % Normal 5.0-12.0 [facility] [place] Comment on above: Performed By: #### Kelly SIMON, BASIC #### [address] [address] Neutrophils (Bld) [#/Vol] 4.73 10*3/uL Normal 2.00-7.50 [facility] [place] Comment on above: Performed By: #### Kelly SIMON, BASIC #### [address] [address] NRBC COUNT 0.00 Normal 0.00-0.50 [facility] [place] Comment on above: Performed By: #### Kelly SIMON, BASIC #### [address] [address] Nucleated RBC/100 WBC (Bld) [Ratio] 0.0 % Normal [facility] [place] Comment on above: Performed By: #### Kelly BCSusan, BASIC #### [address] [address] Platelet mean volume (Bld) [Entitic vol] 8.9 fL Normal 8.9-11.5 [facility] [place] Comment on above: Performed By: #### Kelly BCSusan, BASIC #### [address] [address] Platelets (Bld) [#/Vol] 186 10*3/uL Normal 150-375 [facility] [place] Comment on above: Performed By: #### C BCD, BASIC #### [address] [address] RBC (Bld) [#/Vol] 4.33 10*6/uL Normal 3.59-6.32 [facility] [place] Comment on above: Performed By: #### C BCD, BASIC #### [address] [address] Segmented neutrophils/100 WBC (Bld) 66.2 % High 36.0-66.0 [facility] [place] Comment on above: Performed By: #### C BCD, BASIC #### [address] [address] Variant lymphocytes Auto Ql (Bld) 25.6 % Normal 24.0-44.0 [facility] [place] Comment on above: Performed By: #### C BCD, BASIC #### [address] [address] WBC (Bld) [#/Vol] 7.14 10*3/uL Normal 3.12-10.36 [facility] [place] Comment on above: Performed By: #### C BCD, BASIC #### [address] [address] COMPREHENSIVE METABOLIC PANE [place] 12-07-2023 Albumin [Mass/Vol] 4.0 g/dL Normal 3.5-5.0 [facility] [place] [place] Comment on above: Performed By: #### C BCD, BASIC #### [address] [address] ALP [Catalytic activity/Vol] 88 U/L Normal 38-126 [facility] [place] Comment on above: Performed By: #### C BCD, BASIC #### [address] [address] ALT [Catalytic activity/Vol] 28 U/L Normal 21-72 [facility] [place] Comment on above: Performed By: #### C BCD, BASIC #### [address] [address] AST [Catalytic activity/Vol] 38 U/L Normal 17-59 [facility] [place] Comment on above: Performed By: #### C BCD, BASIC #### [address] [address] Bilirubin [Mass or moles/Vol] 2.9 mg/dL High 0.2-1.2 [facility] [place] Comment on above: Performed By: #### C BCD, BASIC #### [address] [address] Calcium [Mass/Vol] 9.6 mg/dL Normal 8.4-10.2 [facility] [place], [place] Comment on above: Performed By: #### C BCD, BASIC #### [address] [address] CO2 [Moles/Vol] 25.0 mm/Hg Normal 22.0-30.0 [facility] [place] Comment on above: Performed By: #### C BCD, BASIC #### [address] [address] Creatinine [Mass/Vol] 0.58 mg/dL Low 0.80-1.50 [facility] [place] Comment on above: Performed By: #### C BCD, BASIC #### [address] [address] GFR/1.73 sq M.predicted (S/P/Bld) [Vol rate/Area] 154 mL/min Normal >60 [facility] [place] Comment on above: Result Comment: Refe rence Range: 59 to 44 - Mild to moderate loss of kidney function 44 to 30 - Moderate to Severe loss of kidney function 29 to 15 - Severe loss of kidney function <15 - Kidney failure The estimated GFR is based on the MDRD formula for assessment of stable or slowly declining kidney function in adults. Estimated GFR values are not accurate in: -Obese (BMI>34) OR underweight (BMI<20) people -The very old OR very young -Races other than or -T[place] -People with acute illnesses, amputations, or acute kidney failure. Estimated GFR should be interpreted in clinical context and an alternative method such as a timed urine collection for creatinine clearance used to verify questionable results. (Ref. National Kid[employer] Foundation 2015) Performed By: #### C BCD, BASIC #### [address] [address] Glucose [Mass/Vol] 105 mg/dL High 70-100 [facility] [place], [place] Comment on above: Performed By: #### C BCD, BASIC #### [address] [address] Potassium [Moles/Vol] 4.0 mmol/L Normal [facility] [place] Comment on above: Result Comment: 04-13 Performed By: #### C AURORA, BASIC #### [address] [address] Protein [Mass/Vol] 7.0 g/dL Normal 6.0-8.2 [facility] [place], [place] Comment on above: Performed By: #### C BCSusan, BASIC #### [address] [address] Urea nitrogen/Creatinine [Mass ratio] 11 mg/dL Normal 7-22 [facility] [place] Comment on above: Performed By: #### C AURORA, BASIC #### [address] [address] Potassium [Moles/Vol] 3.8 mmol/L Normal 3.5-5.0 [facility] [place] Comment on above: Performed By: #### Kelly SIMON, BASIC #### [address] [address] Chloride [Moles/Vol] 110 mmol/L Normal 100-110 [facility] [place] Comment on above: Performed By: #### C BCSusan, BASIC #### [address] [address] Sodium [Moles/Vol] 139 mmol/L Normal 136-145 [facility] [place], [place] Comment on above: Performed By: #### C AURORA, BASIC #### [address] [address] LIPASEon 12-07-2023 Lipase [Catalytic activity/Vol] 64 U/L Normal 23-300 [facility] [place] Comment on above: Performed By: #### C BCD, BASIC #### [address] [address] Laboratory - Chemistry and C hemistry - challengeon 12-07-2023 Albumin [Mass/Vol] 4.0 g/dL 3.5 - 5.0 g/dL [facility] ALP [Catalytic activity/Vol] 88 U/L 38 - 126 U/L [facility] ALT [Catalytic activity/Vol] 28 U/L 21 - 72 U/L [facility] Anion gap [Moles/Vol] 4.0 mmol/L [facility] Comment on above: 7-16 AST [Catalytic activity/Vol] 38 U/L 17 - 59 U/L [facility] Bilirubin [Mass or moles/Vol] 2.9 mg/dL High 0.2 - 1.2 mg/dL [facility] Calcium [Mass/Vol] 9.6 mg/dL 8.4 - 10. 2 mg/dL [facility] Chloride [Moles/Vol] 110 mmol/L 100 - 1 10 mmol/L [facility] CO2 [Moles/Vol] 25.0 mmol/L [facility] Creatinine [Mass/Vol] 0.58 mg/dL Low 0.80 - 1.50 mg/dL [facility] GFR/1.73 sq M.predicted (S/P/Bld) [Vol rate/Area] 154 mL/min - PINF [facility] Comment on above: Reference Range: 59 to 44 - Mild to moderate loss of kidney function 44 to 30 - Moderate to Severe loss of kidney function 29 to 15 - Severe loss of kidney function <15 - Kidney failure The estimated GFR is based on the MDRD formula for assessment of stable or slowly declining kidney function in adults. Estimated GFR values are not accurate in: -Obese (BMI>34) OR underweight (BMI<20) people -The very old OR very young -Races other than or -[place] -People with acute illnesses, amputations, or acute kidney failure. Estimated GFR should be interpreted in clinical context and an alternative method such as a timed urine collection for creatinine clearance used to verify questionable results. (Ref. National Kidney Foundation 2015) Glucose [Mass/Vol] 105 mg/dL High 70 - 100 mg/dL [facility] Lipase [Catalytic activity/Vol] 64 U/L 23 - 300 U/L [facility] Magnesium [Mass/Vol] 1.9 mg/dL 1.7 - 2 .2 mg/dL [facility] Phosphate [Mass/Vol] 3.1 mg/dL 2.5 - 4 .6 mg/dL [facility] Potassium [Moles/Vol] 3.8 mmol/L 3.5 - 5.0 mmol/L [facility] Protein [Mass/Vol] 7.0 g/dL 6.0 - 8.2 g/dL [facility] Sodium [Moles/Vol] 139 mmol/L 136 - 145 mmol/L [facility] Urea nitrogen/Creatinine [Mass ratio] 11 mg/dL 7 - 22 mg/dL [facility] Laboratory - Hematology and Cell countson 12-07-2023 Basophils (Bld) [#/Vol] 0.04 10*3/uL [facility] Basophils/100 WBC (Bld) 0.6 % 0.0 - 2.0 % [facility] Eosinophils (Bld) [#/Vol] 0.12 10*3/uL 0.00 - 0.50 10*3/uL [facility] Eosinophils/100 WBC (Bld) 1.7 % 0.0 - 4.0 % [facility] Erythrocyte distribution width (RBC) [Ratio] 13.5 % 11.4 - 14.4 % [facility] Hematocrit (Bld) [Volume fraction] 41.4 % 34.3 - 53.1 % [facility] Hemoglobin (Bld) [Mass/Vol] 13.7 g/dL 11.4 - 17.7 g/dL [facility] Lymphocytes (Bld) [#/Vol] 1.83 10*3/uL 1.00 - 4.80 10*3/uL [facility] MCH (RBC) [Entitic mass] 31.6 pg 26.2 - 32.7 pg [facility] MCHC (RBC) [Mass/Vol] 33.1 g/dL 31.6 - 35.0 g/dL [facility] MCV (RBC) [Entitic vol] 95.6 fL 81.6 - 95.6 fL [facility] Monocytes (Bld) [#/Vol] 0.40 10*3/uL 0.20 - 1.20 10*3/uL [facility] Monocytes/100 WBC (Bld) 5.6 % 5.0 - 12.0 % [facility] Neutrophils (Bld) [#/Vol] 4.73 10*3/uL 2.00 - 7.50 10*3/uL [facility] Nucleated RBC/100 WBC (Bld) [Ratio] 0.0 % [facility] Platelet mean volume (Bld) [Entitic vol] 8.9 fL 8.9 - 11.5 fL [facility] Platelets (Bld) [#/Vol] 186 10*3/uL 150 - 375 10*3/uL [facility] RBC (Bld) [#/Vol] 4.33 10*6/uL 3.59 - 6.3 2 10*6/uL [facility] Segmented neutrophils/100 WBC (Bld) 66.2 % High 36.0 - 66.0 % [facility] Variant lymphocytes Auto Ql (Bld) 25.6 % 24.0 - 44.0 % [facility] WBC (Bld) [#/Vol] 7.14 10*3/uL 3.12 - 10. 36 10*3/uL [facility] MAGNESIUMon 12-07-2023 Magnesium [Mass/Vol] 1.9 mg/dL Normal 1.7-2.2 [facility] [place] Comment on above: Performed By: #### C BCD, BASIC #### [address] [id number] No Panel Informationon 12-06 Interpretation and review of laboratory results Abnormal [facility] Interpretation and review of laboratory results Abnormal [facility] RBC, NUCLEATED, ABSOLUTE 0.00 0.00 - 0.50 [facility] PHOSPHORUSon 12-07-2023 Phosphate [Mass/Vol] 3.1 mg/dL Normal 2.5-4.6 [facility] [place] Comment on above: Performed By: #### C BCD, BASIC #### [address] [address] ALCOHOL MEDICALon 12-06-2023 Ethanol [Mass/Vol] 100 mg/dL Normal <10 [facility] [place], [place] Comment on above: Result Comment: Effe ctive 12-19-08 new methodology and new instrumentation: lower reportable range is 10 mg/dl. [place] legal limit of intoxication is 80 mg/dl or 0.08 g/dl. [facility] REPORTS OUT IN MG/DL Performed By: #### B ASIC, MAG, LIPA #### [address] [address] BASIC METABOLIC PANELon Calcium [Mass/Vol] 9.0 mg/dL Normal 8.4-10.2 [facility] [place], [place] Comment on above: Performed By: #### B ASIC, MAG, LIPA #### [address] [address] CO2 [Moles/Vol] 23.0 mm/Hg Normal 22.0-30.0 [facility] [place] Comment on above: Performed By: #### B ASIC, MAG, LIPA #### [address] [address] Glucose [Mass/Vol] 107 mg/dL High 70-100 [facility] [place], [place] Comment on above: Performed By: #### B ASIC, MAG, LIPA #### [address] [address] Potassium [Moles/Vol] 6.8 mmol/L Normal [facility] [place] Comment on above: Result Comment: 7-16 Performed By: #### B ASIC, MAG, LIPA #### [address] [address] Creatinine [Mass/Vol] 0.69 mg/dL Low 0.80-1.50 [facility] [place] Comment on above: Performed By: #### B ASIC, MAG, LIPA #### [address] [address] GFR/1.73 sq M.predicted (S/P/Bld) [Vol rate/Area] 126 mL/min Normal >60 [facility] [place] Comment on above: Result Comment: Refe rence Range: 59 to 44 - Mild to moderate loss of kidney function 44 to 30 - Moderate to Severe loss of kidney function 29 to 15 - Severe loss of kidney function <15 - Kidney failure The estimated GFR is based on the MDRD formula for assessment of stable or slowly declining kidney function in adults. Estimated GFR values are not accurate in: -Obese (BMI>34) OR underweight (BMI<20) people -The very old OR very young -Races other than or -T[place] -People with acute illnesses, amputations, or acute kidney failure. Estimated GFR should be interpreted in clinical context and an alternative method such as a timed urine collection for creatinine clearance used to verify questionable results. (Ref. National Kidney Foundation 2015) Performed By: #### B ASIC, MAG, LIPA #### [address] [address] Urea nitrogen/Creatinine [Mass ratio] 17 mg/dL Normal 7- [facility] [place] Comment on above: Performed By: #### B ASIC, MAG, LIPA #### [address] [address] Chloride [Moles/Vol] 111 mmol/L High 100-110 [facility] [place] Comment on above: Performed By: #### B ASIC, MAG, LIPA #### [address] [address] Potassium [Moles/Vol] 3.6 mmol/L Normal 3.5-5.0 [facility] [place] Comment on above: Performed By: #### B ASIC, MAG, LIPA #### [address] [address] Sodium [Moles/Vol] 141 mmol/L Normal 136-145 [facility] - [place], [place] Comment on above: Performed By: #### B ASIC, MAG, LIPA #### [address] [address] CBC WITH DIFFERENTIALon 03-0 -2023 Basophils (Bld) [#/Vol] 0.07 10*3/uL Normal 0.00-0.20 [facility] [place] Comment on above: Performed By: #### B ASIC, MAG, LIPA #### [address] [address] Basophils/100 WBC (Bld) 0.4 % Normal 0.0-2.0 [facility] [place] Comment on above: Performed By: #### B ASIC, MAG, LIPA #### [address] [address] Eosinophils (Bld) [#/Vol] 0.03 10*3/uL Normal 0.00-0.50 [facility] [place] Comment on above: Performed By: #### B ASIC, MAG, LIPA #### [address] [address] Eosinophils/100 WBC (Bld) 0.2 % Normal 0.0-4.0 [facility] [place] Comment on above: Performed By: #### B ASIC, MAG, LIPA #### [address] [address] Erythrocyte distribution width (RBC) [Ratio] 13.5 % Normal 11.4-14.4 [facility] [place] Comment on above: Performed By: #### B ASIC, MAG, LIPA #### [address] [address] Hematocrit (Bld) [Volume fraction] 46.7 % Normal 34.3-53.1 [facility] [place] Comment on above: Performed By: #### B ASIC, MAG, LIPA #### [address] [address] Hemoglobin (Bld) [Mass/Vol] 15.7 g/dL Normal 11.4-17.7 [facility] [place] Comment on above: Performed By: #### B ASIC, MAG, LIPA #### [address] [address] Lymphocytes (Bld) [#/Vol] 1.40 10*3/uL Normal 1.00-4.80 [facility] [place] Comment on above: Performed By: #### B ASIC, MAG, LIPA #### [address] [address] MCH (RBC) [Entitic mass] 31.6 pg Normal 26.2-32.7 [facility] [place] Comment on above: Performed By: #### B ASIC, MAG, LIPA #### [address] [address] MCHC (RBC) [Mass/Vol] 33.6 g/dL Normal 31.6-35.0 [facility] [place] Comment on above: Performed By: #### B ASIC, MAG, LIPA #### [address] [address] MCV (RBC) [Entitic vol] 94.0 fL Normal 81.6-95.6 [facility] [place] Comment on above: Performed By: #### B ASIC, MAG, LIPA #### [address] [address] Monocytes (Bld) [#/Vol] 0.61 10*3/uL Normal 0.20-1.20 [facility] [place] Comment on above: Performed By: #### B ASIC, MAG, LIPA #### [address] [address] Monocytes/100 WBC (Bld) 3.7 % Low 5.0-12.0 [facility] [place] Comment on above: Performed By: #### B ASIC, MAG, LIPA #### [address] [address] Neutrophils (Bld) [#/Vol] 14.49 10*3/uL High 2.00-7.50 [facility] [place] Comment on above: Performed By: #### B ASIC, MAG, LIPA #### [address] [address] NRBC COUNT 0.00 Normal 0.00-0.50 [facility] [place] Comment on above: Performed By: #### B ASIC MAG, LIPA #### [address] [address] Nucleated RBC/100 WBC (Bld) [Ratio] 0.0 % Normal [facility] [place] Comment on above: Performed By: #### B ASIC, MAG, LIPA #### [address] [address] Platelet mean volume (Bld) [Entitic vol] 8.6 fL Low 8.9-11.5 [facility] [place] Comment on above: Performed By: #### B BOBBY MAG, LIPA #### [address] [address] Platelets (Bld) [#/Vol] 300 10*3/uL Normal 150-375 [facility] [place] Comment on above: Performed By: #### B ASIC MAG, LIPA #### [address] [address] RBC (Bld) [#/Vol] 4.97 10*6/uL Normal 3.59-6.32 [facility] [place] Comment on above: Performed By: #### B ASIC, MAG, LIPA #### [address] [address] Segmented neutrophils/100 WBC (Bld) 86.9 % High 36.0-66.0 [facility] [place] Comment on above: Performed By: #### B ASIC, MAG, LIPA #### [address] [address] Variant lymphocytes Auto Ql (Bld) 8.4 % Low 24.0-44.0 [facility] [place] Comment on above: Performed By: #### B ASIC, MAG, LIPA #### [address] [address] WBC (Bld) [#/Vol] 16.67 10*3/uL High 3.12-10.36 [facility] [place] Comment on above: Performed By: #### B ASIC, MAG, LIPA #### [address] [address] COMPREHENSIVE METABOLIC PANE [place] 12-06-2023 CO2 [Moles/Vol] 11.0 mm/Hg Low 22.0-30.0 [facility] [place] Comment on above: Performed By: #### B ASIC, MAG, LIPA #### [address] [address] Albumin [Mass/Vol] 4.6 g/dL Normal 3.5-5.0 [facility] - [place], [place] Comment on above: Performed By: #### B ASIC, MAG, LIPA #### [address] [address] ALP [Catalytic activity/Vol] 120 U/L Normal 38-126 [facility] [place] Comment on above: Performed By: #### B ASIC, MAG, LIPA #### [address] [address] ALT [Catalytic activity/Vol] 35 U/L Normal 21-72 [facility] [place] Comment on above: Performed By: #### B ASIC, MAG, LIPA #### [address] [address] AST [Catalytic activity/Vol] 45 U/L Normal 17-59 [facility] [place] Comment on above: Performed By: #### B ASIC, MAG, LIPA #### [address] [address] Bilirubin [Mass or moles/Vol] 2.1 mg/dL High 0.2-1.2 [facility] [place] Comment on above: Performed By: #### B ASIC, MAG, LIPA #### [address] [address] Calcium [Mass/Vol] 10.2 mg/dL Normal 8.4-10.2 [facility] - [place], [place] Comment on above: Performed By: #### B ASIC, MAG, LIPA #### [address] [address] Glucose [Mass/Vol] 116 mg/dL High 70-100 [facility] - [place], [place] Comment on above: Performed By: #### B ASIC, MAG, LIPA #### [address] [address] Potassium [Moles/Vol] 22.4 mmol/L Normal [facility] Comment on above: Result Comment: 7-16 Performed By: #### B ASIC, MAG, LIPA #### [address] [address] Protein [Mass/Vol] 8.0 g/dL Normal 6.0-8.2 [facility] - [place], [place] Comment on above: Performed By: #### B ASIC, MAG, LIPA #### [address] [address] Creatinine [Mass/Vol] 1.14 mg/dL Normal 0.80-1.50 [facility] [place] Comment on above: Performed By: #### B ASIC, MAG, LIPA #### [address] [address] GFR/1.73 sq M.predicted (S/P/Bld) [Vol rate/Area] 71 mL/min Normal >60 [facility] [place] Comment on above: Result Comment: Refe rence Range: 59 to 44 - Mild to moderate loss of kidney function 44 to 30 - Moderate to Severe loss of kidney function 29 to 15 - Severe loss of kidney function <15 - Kidney failure The estimated GFR is based on the MDRD formula for assessment of stable or slowly declining kidney function in adults. Estimated GFR values are not accurate in: -Obese (BMI>34) OR underweight (BMI<20) people -The very old OR very young -Races other than or -T[place]anian -People with acute illnesses, amputations, or acute kidney failure. Estimated GFR should be interpreted in clinical context and an alternative method such as a timed urine collection for creatinine clearance used to verify questionable results. (Ref. National Kidney Foundation 2015) Performed By: #### B ASIC, MAG, LIPA #### [address] [address] Urea nitrogen/Creatinine [Mass ratio] 17 mg/dL Normal 7-22 [facility] [place] Comment on above: Performed By: #### B ASIC, MAG, LIPA #### [address] [address] Chloride [Moles/Vol] 109 mmol/L Normal 100-110 [facility] [place] Comment on above: Performed By: #### B ASIC, MAG, LIPA #### [address] [address] Potassium [Moles/Vol] 3.4 mmol/L Low 3.5-5.0 [facility] [place] Comment on above: Performed By: #### B ASIC, MAG, LIPA #### [address] [address] Sodium [Moles/Vol] 142 mmol/L Normal 136-145 [facility] - [place], [place] Comment on above: Performed By: #### B ASIC, MAG, LIPA #### [address] [address] HA1Con 12-06-2023 HbA1c (Bld) [Mass fraction] 5.2 % Normal 4.0-7.0 [facility] [place] Comment on above: Order Comment: can d raw lactic at 1300 Result Comment: Hemo globin A1c - Glycohemoglobin) INTERPRETATION: Non-diabetics % range: 4.0 - 6.0 % Controlled diabetics % range: < 7.0 % Uncontrolled diabetics % range: > 9.0 % Performed By: #### E ZENIA #### [address] [address] LACTIC ACIDon 12-06-2023 Lactate [Moles/Vol] 0.7 mmol/L Normal 0.7-2.0 [facility] [place] Comment on above: Order Comment: can d raw lactic at 1300 Performed By: #### E ZENIA #### [address] [address] LIPASEon 12-06-2023 Lipase [Catalytic activity/Vol] 86 U/L Normal 23-300 [facility] [place] Comment on above: Performed By: #### B ASIC, MAG, LIPA #### [address] [address] Lipase [Catalytic activity/Vol] 476 U/L High 23-300 [facility] [place] Comment on above: Performed By: #### B ASIC, MAG, LIPA #### [address] [address] Laboratory - Chemistry and C hemistry - challengeon 12-06-2023 Magnesium [Mass/Vol] 2.0 mg/dL 1.7 - 2 .2 mg/dL [facility] Base excess Calc (BldV) [Moles/Vol] 2.2 mmol/L [facility] Comment on above: Reference ranges hav e not been established for venous gases. Carboxyhemoglobin (BldV) [Mass fraction] 15.0 g/dL [facility] CO2 (BldV) [Partial pressure] 21.1 mmol/L [facility] CO2 [Moles/Vol] 30.9 mmol/L mmHg [facility] Gas and Carbon monoxide panel (BldV) 3.8 [facility] HCO3 standard (BldV) [Moles/Vol] 24.4 mmol/L [facility] Methemoglobin (BldV) [Pure mass fraction] 0.3 [facility] Oxygen (BldV) [Partial pressure] 60.6 mm[Hg] mmHg [facility] Oxyhemoglobin (BldV) [Mass fraction] 89.6 [facility] pH (BldV) 7.507 [pH] [facility] SaO2% (BldCoV) [Mass fraction] 93.4 [facility] Anion gap [Moles/Vol] 6.8 mmol/L [facility] Comment on above: 7-16 Calcium [Mass/Vol] 9.0 mg/dL 8.4 - 10. 2 mg/dL [facility] Chloride [Moles/Vol] 111 mmol/L High 100 - 1 10 mmol/L [facility] CO2 [Moles/Vol] 23.0 mmol/L [facility] Creatinine [Mass/Vol] 0.69 mg/dL Low 0.80 - 1.50 mg/dL [facility] GFR/1.73 sq M.predicted (S/P/Bld) [Vol rate/Area] 126 mL/min - PINF [facility] Comment on above: Reference Range: 59 to 44 - Mild to moderate loss of kidney function 44 to 30 - Moderate to Severe loss of kidney function 29 to 15 - Severe loss of kidney function <15 - Kidney failure The estimated GFR is based on the MDRD formula for assessment of stable or slowly declining kidney function in adults. Estimated GFR values are not accurate in: -Obese (BMI>34) OR underweight (BMI<20) people -The very old OR very young -Races other than or -[place] -People with acute illnesses, amputations, or acute kidney failure. Estimated GFR should be interpreted in clinical context and an alternative method such as a timed urine collection for creatinine clearance used to verify questionable results. (Ref. National Kidney Foundation 2015) Glucose [Mass/Vol] 107 mg/dL High 70 - 100 mg/dL [facility] Lipase [Catalytic activity/Vol] 86 U/L 23 - 300 U/L [facility] Magnesium [Mass/Vol] 1.6 mg/dL Low 1.7 - 2 .2 mg/dL [facility] Potassium [Moles/Vol] 3.6 mmol/L 3.5 - 5.0 mmol/L [facility] Sodium [Moles/Vol] 141 mmol/L 136 - 145 mmol/L [facility] Urea nitrogen/Creatinine [Mass ratio] 17 mg/dL 7 - 22 mg/dL [facility] Lactate [Moles/Vol] 0.7 mmol/L 0.7 - 2. 0 mmol/L [facility] Magnesium [Mass/Vol] 1.7 mg/dL 1.7 - 2 .2 mg/dL [facility] Troponin I.cardiac [Mass/Vol] ng/mL 0.012 - 0.120 ng/mL [facility] Comment on above: REFERENCE RANGE IS 0.012 - 0.120 ng/ml cTnI - The cutoff of 0.120 ng/ml is recommended for diagnosis of AMI, yielding optimal performance of 95% sensitivity and 93% specificity. Troponin I.cardiac [Mass/Vol] 0.014 ng/mL 0.012 - 0.120 ng/mL [facility] Comment on above: REFERENCE RANGE IS 0.012 - 0.120 ng/ml cTnI - The cutoff of 0.120 ng/ml is recommended for diagnosis of AMI, yielding optimal performance of 95% sensitivity and 93% specificity. Albumin [Mass/Vol] 4.6 g/dL 3.5 - 5.0 g/dL [facility] ALP [Catalytic activity/Vol] 120 U/L 38 - 126 U/L [facility] ALT [Catalytic activity/Vol] 35 U/L 21 - 72 U/L [facility] Anion gap [Moles/Vol] 22.4 mmol/L [facility] Comment on above: 7-16 AST [Catalytic activity/Vol] 45 U/L 17 - 59 U/L [facility] Bilirubin [Mass or moles/Vol] 2.1 mg/dL High 0.2 - 1.2 mg/dL [facility] Calcium [Mass/Vol] 10.2 mg/dL 8.4 - 10. 2 mg/dL [facility] Chloride [Moles/Vol] 109 mmol/L 100 - 1 10 mmol/L [facility] CO2 [Moles/Vol] 11.0 mmol/L Low [facility] Creatinine [Mass/Vol] 1.14 mg/dL 0.80 - 1.50 mg/dL [facility] GFR/1.73 sq M.predicted (S/P/Bld) [Vol rate/Area] 71 mL/min - PINF [facility] Comment on above: Reference Range: 59 to 44 - Mild to moderate loss of kidney function 44 to 30 - Moderate to Severe loss of kidney function 29 to 15 - Severe loss of kidney function <15 - Kidney failure The estimated GFR is based on the MDRD formula for assessment of stable or slowly declining kidney function in adults. Estimated GFR values are not accurate in: -Obese (BMI>34) OR underweight (BMI<20) people -The very old OR very young -Races other than or -T[place] -People with acute illnesses, amputations, or acute kidney failure. Estimated GFR should be interpreted in clinical context and an alternative method such as a timed urine collection for creatinine clearance used to verify questionable results. (Ref. National Kidney Foundation 2015) Glucose [Mass/Vol] 116 mg/dL High 70 - 100 mg/dL [facility] Lipase [Catalytic activity/Vol] 476 U/L High 23 - 300 U/L [facility] Potassium [Moles/Vol] 3.4 mmol/L Low 3.5 - 5.0 mmol/L [facility] Protein [Mass/Vol] 8.0 g/dL 6.0 - 8.2 g/dL [facility] Sodium [Moles/Vol] 142 mmol/L 136 - 145 mmol/L [facility] Urea nitrogen/Creatinine [Mass ratio] 17 mg/dL 7 - 22 mg/dL [facility] Laboratory - Drug toxicology on 12-06-2023 Ethanol [Mass/Vol] 100 mg/dL NINF - 10 mg/dL [facility] Comment on above: Effective 12-19-08 ne w methodology and new instrumentation: lower reportable range is 10 mg/dl. [place] legal limit of intoxication is 80 mg/dl or 0.08 g/dl. [facility] REPORTS OUT IN MG/DL Laboratory - Hematology and Cell countson 12-06-2023 Deoxyhemoglobin (BldV) [Mass fraction] 6.3 [facility] HbA1c (Bld) [Mass fraction] 5.2 % 4.0 - 7.0 % [facility] Comment on above: Hemoglobin A1c - Gly cohemoglobin) INTERPRETATION: Non-diabetics % range: 4.0 - 6.0 % Controlled diabetics % range: < 7.0 % Uncontrolled diabetics % range: > 9.0 % Basophils (Bld) [#/Vol] 0.07 10*3/uL 0.00 - 0.20 10*3/uL [facility] Basophils/100 WBC (Bld) 0.4 % 0.0 - 2.0 % [facility] Eosinophils (Bld) [#/Vol] 0.03 10*3/uL 0.00 - 0.50 10*3/uL [facility] Eosinophils/100 WBC (Bld) 0.2 % 0.0 - 4.0 % [facility] Erythrocyte distribution width (RBC) [Ratio] 13.5 % 11.4 - 14.4 % [facility] Hematocrit (Bld) [Volume fraction] 46.7 % 34.3 - 53.1 % [facility] Hemoglobin (Bld) [Mass/Vol] 15.7 g/dL 11.4 - 17.7 g/dL [facility] Lymphocytes (Bld) [#/Vol] 1.40 10*3/uL 1.00 - 4.80 10*3/uL [facility] MCH (RBC) [Entitic mass] 31.6 pg 26.2 - 32.7 pg [facility] MCHC (RBC) [Mass/Vol] 33.6 g/dL 31.6 - 35.0 g/dL [facility] MCV (RBC) [Entitic vol] 94.0 fL 81.6 - 95.6 fL [facility] Monocytes (Bld) [#/Vol] 0.61 10*3/uL 0.20 - 1.20 10*3/uL [facility] Monocytes/100 WBC (Bld) 3.7 % Low 5.0 - 12.0 % [facility] Neutrophils (Bld) [#/Vol] 14.49 10*3/uL High 2.00 - 7.50 10*3/uL [facility] Nucleated RBC/100 WBC (Bld) [Ratio] 0.0 % [facility] Platelet mean volume (Bld) [Entitic vol] 8.6 fL Low 8.9 - 11.5 fL [facility] Platelets (Bld) [#/Vol] 300 10*3/uL 150 - 375 10*3/uL [facility] RBC (Bld) [#/Vol] 4.97 10*6/uL 3.59 - 6.3 2 10*6/uL [facility] Segmented neutrophils/100 WBC (Bld) 86.9 % High 36.0 - 66.0 % [facility] Variant lymphocytes Auto Ql (Bld) 8.4 % Low 24.0 - 44.0 % [facility] WBC (Bld) [#/Vol] 16.67 10*3/uL High 3.12 - 10 .36 10*3/uL [facility] MAGNESIUMon 12-06-2023 Magnesium [Mass/Vol] 2.0 mg/dL Normal 1.7-2.2 [facility] [place] Comment on above: Performed By: #### B ASIC, MAG, LIPA #### [address] [address] Magnesium [Mass/Vol] 1.6 mg/dL Low 1.7-2.2 [facility] [place] Comment on above: Performed By: #### B ASIC, MAG, LIPA #### [address] [address] Magnesium [Mass/Vol] 1.7 mg/dL Normal 1.7-2.2 [facility] [place] Comment on above: Order Comment: can d raw lactic at 1300 Performed By: #### E EZNIA #### [address] [address] No Panel Informationon 12-05 [facility] Interpretation and review of laboratory results Abnormal [facility] Interpretation and review of laboratory results Abnormal [facility] Interpretation and review of laboratory results Abnormal [facility] RBC, NUCLEATED, ABSOLUTE 0.00 0.00 - 0.50 [facility] TROPONIN Ion 12-06-2023 Troponin I.cardiac [Mass/Vol] ng/mL Normal 0.012-0.120 [facility] [place] Comment on above: Result Comment: RE FERENCE RANGE IS 0.012 - 0.120 ng/ml cTnI - The cutoff of 0.120 ng/ml is recommended for diagnosis of AMI, yielding optimal performance of 95% sensitivity and 93% specificity. Performed By: #### E ZENIA #### [address] [address] Troponin I.cardiac [Mass/Vol] 0.014 ng/mL Normal 0.012-0.120 [facility] [place] Comment on above: Result Comment: RE FERENCE RANGE IS 0.012 - 0.120 ng/ml cTnI - The cutoff of 0.120 ng/ml is recommended for diagnosis of AMI, yielding optimal performance of 95% sensitivity and 93% specificity. Performed By: #### B ASIC, MAG, RITA #### [address] [address] VENOUS BLOOD GAS - [place] Base excess Calc (BldV) [Moles/Vol] 2.2 mmol/L [facility] Comment on above: Result Comment: Refe rence ranges have not been established for venous gases. Performed By: #### V BG #### [address] [address] Carboxyhemoglobin (BldV) [Mass fraction] 15.0 g/dL [facility] Comment on above: Performed By: #### V BG #### [address] [address] CO2 (BldV) [Partial pressure] 21.1 mmol/L [facility] Comment on above: Performed By: #### V BG #### [address] [address] CO2 [Moles/Vol] 30.9 mmol/L [facility] Comment on above: Performed By: #### V BG #### [address] [address] Deoxyhemoglobin (BldV) [Mass fraction] 6.3 [facility] Comment on above: Performed By: #### V BG #### [address] [address] Gas and Carbon monoxide panel (BldV) 3.8 [facility] Comment on above: Performed By: #### V BG #### [address] [address] HCO3 standard (BldV) [Moles/Vol] 24.4 mmol/L [facility] Comment on above: Performed By: #### V BG #### [address] [address] Methemoglobin (BldV) [Pure mass fraction] 0.3 [facility] Comment on above: Performed By: #### V BG #### [address] [address] Oxygen (BldV) [Partial pressure] 60.6 mm[Hg] [facility] Comment on above: Performed By: #### V BG #### [address] [address] Oxyhemoglobin (BldV) [Mass fraction] 89.6 [facility] Comment on above: Performed By: #### V BG #### [address] [address] pH (BldV) 7.507 [pH] [facility] Comment on above: Performed By: #### V BG #### [address] [address] SaO2% (BldCoV) [Mass fraction] 93.4 [facility] Comment on above: Performed By: #### V BG #### [address] [address] VITAMIN D, 25 HYDROXYon 03-0 25-hydroxyvitamin D [Mass/Vol] 29.1 ng/mL Low 30.0-100.0 [facility] [place] Comment on above: Order Comment: Add o n to a.m. labs Result Comment: Diana min D deficiency has been defined by the [employer] and an Endocrine Society practice guideline as a level of serum 25-OH vitamin D less than 20 ng/mL (1,2). The Endocrine Society went on to further define vitamin D insufficiency as a level between 21 and 29 ng/mL (2). 1. IOM ([employer]). 2010. Dietary reference intakes for calcium and D. [place]: The National Academies Press. 2. Rajwinder MF, Juliana [place], Bj MOHR, et al. Evaluation, treatment, and prevention of vitamin D deficiency: an Endocrine Society clinical practice guideline. JCEM. 2010; 96(7):1911-30. Performed at: , [facility], [id number] Zain Harmon, PhD, Phone: [phone] Performed By: #### E ZENIA #### [address] [address] BASIC METABOLIC PANELon 03-0 Calcium [Mass/Vol] 9.8 mg/dL Normal 8.4-10.2 [facility] [place], [place] Comment on above: Performed By: #### C BCD, BASIC #### [address] [address] CO2 [Moles/Vol] 25.0 mm/Hg Normal 22.0-30.0 [facility] [place] Comment on above: Performed By: #### C BCD, BASIC #### [address] [address] Creatinine [Mass/Vol] 0.59 mg/dL Low 0.80-1.50 [facility] [place] Comment on above: Performed By: #### C BCD, BASIC #### [address] [address] GFR/1.73 sq M.predicted (S/P/Bld) [Vol rate/Area] 151 mL/min Normal >60 [facility] [place] Comment on above: Result Comment: Refe rence Range: 59 to 44 - Mild to moderate loss of kidney function 44 to 30 - Moderate to Severe loss of kidney function 29 to 15 - Severe loss of kidney function <15 - Kidney failure The estimated GFR is based on the MDRD formula for assessment of stable or slowly declining kidney function in adults. Estimated GFR values are not accurate in: -Obese (BMI>34) OR underweight (BMI<20) people -The very old OR very young -Races other than or -[place] -People with acute illnesses, amputations, or acute kidney failure. Estimated GFR should be interpreted in clinical context and an alternative method such as a timed urine collection for creatinine clearance used to verify questionable results. (Ref. National [employer] Foundation 2015) Performed By: #### C BCD, BASIC #### [address] [address] Glucose [Mass/Vol] 90 mg/dL Normal 70-100 [facility] - [place], [place] Comment on above: Performed By: #### C BCD, BASIC #### [address] [address] Potassium [Moles/Vol] 5.9 mmol/L Normal [facility] [place] Comment on above: Result Comment: 7-16 Performed By: #### C BCD, BASIC #### [address] [address] Urea nitrogen/Creatinine [Mass ratio] 14 mg/dL Normal 7-22 [facility] [place] Comment on above: Performed By: #### C BCD, BASIC #### [address] [address] Chloride [Moles/Vol] 109 mmol/L Normal 100-110 [facility] [place] Comment on above: Performed By: #### C BCD, BASIC #### [address] [address] Potassium [Moles/Vol] 3.5 mmol/L Normal 3.5-5.0 [facility] [place] Comment on above: Performed By: #### C BCSusan, BASIC #### [address] [address] Sodium [Moles/Vol] 139 mmol/L Normal 136-145 [facility] - [place], [place] Comment on above: Performed By: #### C BCSusan, BASIC #### [address] [address] CBC WITH DIFFERENTIALon 03-0 -2023 Basophils (Bld) [#/Vol] 0.05 10*3/uL Normal 0.00-0.20 [facility] [place] Comment on above: Performed By: #### C BCSusan, BASIC #### [address] [address] Basophils/100 WBC (Bld) 0.6 % Normal 0.0-2.0 [facility] [place] Comment on above: Performed By: #### C BCSusan, BASIC #### [address] [address] Eosinophils (Bld) [#/Vol] 0.11 10*3/uL Normal 0.00-0.50 [facility] [place] Comment on above: Performed By: #### C BCSusan, BASIC #### [address] [address] Eosinophils/100 WBC (Bld) 1.3 % Normal 0.0-4.0 [facility] [place] Comment on above: Performed By: #### C BCD, BASIC #### [address] [address] Erythrocyte distribution width (RBC) [Ratio] 13.5 % Normal 11.4-14.4 [facility] [place] Comment on above: Performed By: #### C BCD, BASIC #### [address] [address] Hematocrit (Bld) [Volume fraction] 43.6 % Normal 34.3-53.1 [facility] [place] Comment on above: Performed By: #### C BCD, BASIC #### [address] [address] Hemoglobin (Bld) [Mass/Vol] 14.7 g/dL Normal 11.4-17.7 [facility] [place] Comment on above: Performed By: #### C BCD, BASIC #### [address] [address] Lymphocytes (Bld) [#/Vol] 1.44 10*3/uL Normal 1.00-4.80 [facility] [place] Comment on above: Performed By: #### C BCD, BASIC #### [address] [address] MCH (RBC) [Entitic mass] 31.5 pg Normal 26.2-32.7 [facility] [place] Comment on above: Performed By: #### C BCD, BASIC #### [address] [address] MCHC (RBC) [Mass/Vol] 33.7 g/dL Normal 31.6-35.0 [facility] [place] Comment on above: Performed By: #### C BCD, BASIC #### [address] [address] MCV (RBC) [Entitic vol] 93.6 fL Normal 81.6-95.6 [facility] [place] Comment on above: Performed By: #### C BCD, BASIC #### [address] [address] Monocytes (Bld) [#/Vol] 0.65 10*3/uL Normal 0.20-1.20 [facility] [place] Comment on above: Performed By: #### C BCD, BASIC #### [address] [address] Monocytes/100 WBC (Bld) 7.8 % Normal 5.0-12.0 [facility] [place] Comment on above: Performed By: #### C BCD, BASIC #### [address] [address] Neutrophils (Bld) [#/Vol] 6.02 10*3/uL Normal 2.00-7.50 [facility] [place] Comment on above: Performed By: #### Kelly BCSusan, BASIC #### [address] [address] NRBC COUNT 0.00 Normal 0.00-0.50 [facility] [place] Comment on above: Performed By: #### Kelly SIMON, BASIC #### [address] [address] Nucleated RBC/100 WBC (Bld) [Ratio] 0.0 % Normal [facility] [place] Comment on above: Performed By: #### Kelyl SIMON, BASIC #### [address] [address] Platelet mean volume (Bld) [Entitic vol] 8.7 fL Low 8.9-11.5 [facility] [place] Comment on above: Performed By: #### Kelly SIMON, BASIC #### [address] [address] Platelets (Bld) [#/Vol] 235 10*3/uL Normal 150-375 [facility] [place] Comment on above: Performed By: #### Kelly SIMON, BASIC #### [address] [address] RBC (Bld) [#/Vol] 4.66 10*6/uL Normal 3.59-6.32 [facility] [place] Comment on above: Performed By: #### Kelly BCSusan, BASIC #### [address] [address] Segmented neutrophils/100 WBC (Bld) 72.6 % High 36.0-66.0 [facility] [place] Comment on above: Performed By: #### Kelly BCSusan, BASIC #### [address] [address] Variant lymphocytes Auto Ql (Bld) 17.3 % Low 24.0-44.0 [facility] [place] Comment on above: Performed By: #### Kelly BCSusan, BASIC #### [address] [address] WBC (Bld) [#/Vol] 8.30 10*3/uL Normal 3.12-10.36 [facility] [place] Comment on above: Performed By: #### C BCD, BASIC #### [address] [address] Laboratory - Chemistry and C hemistry - challengeon 12-05-2023 Phosphate [Mass/Vol] 2.9 mg/dL 2.5 - 4 .6 mg/dL [facility] Magnesium [Mass/Vol] 1.8 mg/dL 1.7 - 2 .2 mg/dL [facility] Anion gap [Moles/Vol] 5.9 mmol/L [facility] Comment on above: 7-16 Calcium [Mass/Vol] 9.8 mg/dL 8.4 - 10. 2 mg/dL [facility] Chloride [Moles/Vol] 109 mmol/L 100 - 1 10 mmol/L [facility] CO2 [Moles/Vol] 25.0 mmol/L [facility] Creatinine [Mass/Vol] 0.59 mg/dL Low 0.80 - 1.50 mg/dL [facility] GFR/1.73 sq M.predicted (S/P/Bld) [Vol rate/Area] 151 mL/min - [facility] Comment on above: Reference Range: 59 to 44 - Mild to moderate loss of kidney function 44 to 30 - Moderate to Severe loss of kidney function 29 to 15 - Severe loss of kidney function <15 - Kidney failure The estimated GFR is based on the MDRD formula for assessment of stable or slowly declining kidney function in adults. Estimated GFR values are not accurate in: -Obese (BMI>34) OR underweight (BMI<20) people -The very old OR very young -Races other than or -T[place] -People with acute illnesses, amputations, or acute kidney failure. Estimated GFR should be interpreted in clinical context and an alternative method such as a timed urine collection for creatinine clearance used to verify questionable results. (Ref. National Kidney Foundation 2015) Glucose [Mass/Vol] 90 mg/dL 70 - 100 mg/dL [facility] Potassium [Moles/Vol] 3.5 mmol/L 3.5 - 5.0 mmol/L [facility] Sodium [Moles/Vol] 139 mmol/L 136 - 145 mmol/L [facility] Urea nitrogen/Creatinine [Mass ratio] 14 mg/dL 7 - 22 mg/dL [facility] Laboratory - Hematology and Cell countson 12-05-2023 Basophils (Bld) [#/Vol] 0.05 10*3/uL 0.00 - 0.20 10*3/uL [facility] Basophils/100 WBC (Bld) 0.6 % 0.0 - 2.0 % [facility] Eosinophils (Bld) [#/Vol] 0.11 10*3/uL 0.00 - 0.50 10*3/uL [facility] Eosinophils/100 WBC (Bld) 1.3 % 0.0 - 4.0 % [facility] Erythrocyte distribution width (RBC) [Ratio] 13.5 % 11.4 - 14.4 % [facility] Hematocrit (Bld) [Volume fraction] 43.6 % 34.3 - 53.1 % [facility] Hemoglobin (Bld) [Mass/Vol] 14.7 g/dL 11.4 - 17.7 g/dL [facility] Lymphocytes (Bld) [#/Vol] 1.44 10*3/uL 1.00 - 4.80 10*3/uL [facility] MCH (RBC) [Entitic mass] 31.5 pg 26.2 - 32.7 pg [facility] MCHC (RBC) [Mass/Vol] 33.7 g/dL 31.6 - 35.0 g/dL [facility] MCV (RBC) [Entitic vol] 93.6 fL 81.6 - 95.6 fL [facility] Monocytes (Bld) [#/Vol] 0.65 10*3/uL 0.20 - 1.20 10*3/uL [facility] Monocytes/100 WBC (Bld) 7.8 % 5.0 - 12.0 % [facility] Neutrophils (Bld) [#/Vol] 6.02 10*3/uL 2.00 - 7.50 10*3/uL [facility] Nucleated RBC/100 WBC (Bld) [Ratio] 0.0 % [facility] Platelet mean volume (Bld) [Entitic vol] 8.7 fL Low 8.9 - 11.5 fL [facility] Platelets (Bld) [#/Vol] 235 10*3/uL 150 - 375 10*3/uL [facility] RBC (Bld) [#/Vol] 4.66 10*6/uL 3.59 - 6.3 2 10*6/uL [facility] Segmented neutrophils/100 WBC (Bld) 72.6 % High 36.0 - 66.0 % [facility] Variant lymphocytes Auto Ql (Bld) 17.3 % Low 24.0 - 44.0 % [facility] WBC (Bld) [#/Vol] 8.30 10*3/uL 3.12 - 10. 36 10*3/uL [facility] MAGNESIUMon 12-05-2023 Magnesium [Mass/Vol] 1.9 mg/dL Normal 1.7-2.2 [facility] [place] Comment on above: Order Comment: OK to add-on Performed By: #### B ASIC, MAG, LIPA #### [address] [address] Magnesium [Mass/Vol] 1.8 mg/dL Normal 1.7-2.2 [facility] [place] Comment on above: Order Comment: January on to a.m. labs Performed By: #### B ASIC, MAG, LIPA #### [address] [address] No Panel Informationon 12-04 [facility] Interpretation and review of laboratory results Abnormal [facility] Interpretation and review of laboratory results Abnormal [facility] RBC, NUCLEATED, ABSOLUTE 0.00 0.00 - 0.50 [facility] PHOSPHORUSon 12-05-2023 Phosphate [Mass/Vol] 2.9 mg/dL Normal 2.5-4.6 [facility] [place] Comment on above: Order Comment: OK to add-on Performed By: #### B ASIC, MAG, LIPA #### [address] [address] CBC WITH DIFFERENTIALon Basophils (Bld) [#/Vol] 0.11 10*3/uL Normal [facility] [place] Comment on above: Performed By: #### C BCD, CMPN, MAG, PHOS, LIPA #### [address] [address] Basophils/100 WBC (Bld) 0.8 % Normal 0.0-2.0 [facility] [place] Comment on above: Performed By: #### C BCD, CMPN, MAG, PHOS, LIPA #### [address] [address] Eosinophils (Bld) [#/Vol] 0.01 10*3/uL Normal 0.00-0.50 [facility] [place] Comment on above: Performed By: #### C BCD, CMPN, MAG, PHOS, LIPA #### [address] [address] Eosinophils/100 WBC (Bld) 0.1 % Normal 0.0-4.0 [facility] [place] Comment on above: Performed By: #### C BCD, CMPN, MAG, PHOS, LIPA #### [address] [address] Erythrocyte distribution width (RBC) [Ratio] 13.9 % Normal 11.4-14.4 [facility] [place] Comment on above: Performed By: #### C BCD, CMPN, MAG, PHOS, LIPA #### [address] [address] Hematocrit (Bld) [Volume fraction] 49.9 % Normal 34.3-53.1 [facility] [place] Comment on above: Performed By: #### C BCD, CMPN, MAG, PHOS, LIPA #### [address] [address] Hemoglobin (Bld) [Mass/Vol] 16.3 g/dL Normal 11.4-17.7 [facility] [place] Comment on above: Performed By: #### C BCD, CMPN, MAG, PHOS, LIPA #### [address] [address] Lymphocytes (Bld) [#/Vol] 1.18 10*3/uL Normal 1.00-4.80 [facility] [place] Comment on above: Performed By: #### C BCD, CMPN, MAG, PHOS, LIPA #### [address] [address] MCH (RBC) [Entitic mass] 31.4 pg Normal 26.2-32.7 [facility] [place] Comment on above: Performed By: #### C BCD, CMPN, MAG, PHOS, LIPA #### [address] [address] MCHC (RBC) [Mass/Vol] 32.7 g/dL Normal 31.6-35.0 [facility] [place] Comment on above: Performed By: #### C BCD, CMPN, MAG, PHOS, LIPA #### [address] [address] MCV (RBC) [Entitic vol] 96.1 fL High 81.6-95.6 [facility] [place] Comment on above: Performed By: #### C BCD, CMPN, MAG, PHOS, LIPA #### [address] [address] Monocytes (Bld) [#/Vol] 0.75 10*3/uL Normal 0.20-1.20 [facility] [place] Comment on above: Performed By: #### C BCD, CMPN, MAG, PHOS, LIPA #### [address] [address] Monocytes/100 WBC (Bld) 5.7 % Normal 5.0-12.0 [facility] [place] Comment on above: Performed By: #### C BCD, CMPN, MAG, PHOS, LIPA #### [address] [address] Neutrophils (Bld) [#/Vol] 10.99 10*3/uL High 2.00-7.50 [facility] [place] Comment on above: Performed By: #### C BCD, CMPN, MAG, PHOS, LIPA #### [address] [address] NRBC COUNT 0.00 Normal 0.00-0.50 [facility] [place] Comment on above: Performed By: #### C BCD, CMPN, MAG, PHOS, LIPA #### [address] [address] Nucleated RBC/100 WBC (Bld) [Ratio] 0.0 % Normal [facility] [place] Comment on above: Performed By: #### C BCD, CMPN, MAG, PHOS, LIPA #### [address] [address] Platelet mean volume (Bld) [Entitic vol] 8.3 fL Low 8.9-11.5 [facility] [place] Comment on above: Performed By: #### C BCD, CMPN, MAG, PHOS, LIPA #### [address] [address] Platelets (Bld) [#/Vol] 306 10*3/uL Normal 150-375 [facility] [place] Comment on above: Performed By: #### C BCD, CMPN, MAG, PHOS, LIPA #### [address] [address] RBC (Bld) [#/Vol] 5.19 10*6/uL Normal 3.59-6.32 [facility] [place] Comment on above: Performed By: #### C BCD, CMPN, MAG, PHOS, LIPA #### [address] [address] Segmented neutrophils/100 WBC (Bld) 84.2 % High 36.0-66.0 [facility] [place] Comment on above: Performed By: #### C BCD, CMPN, MAG, PHOS, LIPA #### [address] [address] Variant lymphocytes Auto Ql (Bld) 9.0 % Low 24.0-44.0 [facility] [place] Comment on above: Performed By: #### C BCD, CMPN, MAG, PHOS, LIPA #### [address] [address] WBC (Bld) [#/Vol] 13.07 10*3/uL High 3.12-10.36 [facility] [place] Comment on above: Performed By: #### C BCD, CMPN, MAG, PHOS, LIPA #### [address] [address] COMPREHENSIVE METABOLIC PANE [place] 12-04-2023 Albumin [Mass/Vol] 5.0 g/dL Normal 3.5-5.0 [facility] [place], [place] Comment on above: Performed By: #### E ZENIA #### [address] [address] ALP [Catalytic activity/Vol] 113 U/L Normal 38-126 [facility] [place] Comment on above: Performed By: #### E ZENIA #### [address] [address] ALT [Catalytic activity/Vol] 44 U/L Normal 21-72 [facility] [place] Comment on above: Performed By: #### E ZENIA #### [address] [address] AST [Catalytic activity/Vol] 51 U/L Normal 17-59 [facility] [place] Comment on above: Performed By: #### E ZENIA #### [address] [address] Bilirubin [Mass or moles/Vol] 2.9 mg/dL High 0.2-1.2 [facility] [place] Comment on above: Performed By: #### E ZENIA #### [address] [address] Calcium [Mass/Vol] 10.1 mg/dL Normal 8.4-10.2 [facility] [place], [place] Comment on above: Performed By: #### E ZENIA #### [address] [address] CO2 [Moles/Vol] 15.0 mm/Hg Low 22.0-30.0 [facility] [place] Comment on above: Performed By: #### E ZENIA #### [address] [address] Creatinine [Mass/Vol] 0.93 mg/dL Normal 0.80-1.50 [facility] [place] Comment on above: Performed By: #### E ZENIA #### [address] [address] GFR/1.73 sq M.predicted (S/P/Bld) [Vol rate/Area] 90 mL/min Normal >60 [facility] [place] Comment on above: Result Comment: Refe rence Range: 59 to 44 - Mild to moderate loss of kidney function 44 to 30 - Moderate to Severe loss of kidney function 29 to 15 - Severe loss of kidney function <15 - Kidney failure The estimated GFR is based on the MDRD formula for assessment of stable or slowly declining kidney function in adults. Estimated GFR values are not accurate in: -Obese (BMI>34) OR underweight (BMI<20) people -The very old OR very young -Races other than or -T[place] -People with acute illnesses, amputations, or acute kidney failure. Estimated GFR should be interpreted in clinical context and an alternative method such as a timed urine collection for creatinine clearance used to verify questionable results. (Ref. National Kidney Foundation 2015) Performed By: #### E ZENIA #### [address] [address] Glucose [Mass/Vol] 95 mg/dL Normal 70-100 [facility] [place], [place] Comment on above: Performed By: #### E ZENIA #### [address] [address] Potassium [Moles/Vol] 21.3 mmol/L Normal [facility] Comment on above: Result Comment: 04-13 Performed By: #### E ZENIA #### [address] [address] Protein [Mass/Vol] 8.5 g/dL High 6.0-8.2 [facility] [place], [place] Comment on above: Performed By: #### E ZENIA #### [address] [address] Urea nitrogen/Creatinine [Mass ratio] 18 mg/dL Normal 7-22 [facility] [place] Comment on above: Performed By: #### E ZENIA #### [address] [address] Potassium [Moles/Vol] 3.8 mmol/L Normal 3.5-5.0 [facility] [place] Comment on above: Performed By: #### E ZENIA #### [address] [address] Chloride [Moles/Vol] 112 mmol/L High 100-110 [facility] [place] Comment on above: Performed By: #### E ZENIA #### [address] [address] Sodium [Moles/Vol] 148 mmol/L High 136-145 [facility] [place], [place] Comment on above: Performed By: #### E ZENIA #### [address] [address] ECGon 12-04-2023 Electrocardiogram [facility] Test Date: 2023-12-04 Pat Name: ANGELLA FERNANDEZ Department: Room: 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[id number] Requested By: [id number] Order Number: [id number] Kalie MD: Zain Norwood Measurements Intervals [place] Rate: 117 P: 63 SD: 140 QRS: -16 QRSD: 84 T: 89 QT: 320 QTc: 446 Interpretive Statements Sinus tachycardia with occasional premature ventricular complexes Electronically Signed On 12-04-2023 13:21:41 EST by Zain Norwood Normal [facility] [place] Comment on above: Order Comment: Vet-n o LIPASEon 12-04-2023 Lipase [Catalytic activity/Vol] 57 U/L Normal 23-300 [facility] [place] Comment on above: Performed By: #### E ZENIA #### [facility] [place] [address] [place] [address] Laboratory - Chemistry and C hemistry - challengeon 12-04-2023 Troponin I.cardiac [Mass/Vol] ng/mL 0.012 - 0.120 ng/mL [facility] Comment on above: REFERENCE RANGE IS 0.012 - 0.120 ng/ml cTnI - The cutoff of 0.120 ng/ml is recommended for diagnosis of AMI, yielding optimal performance of 95% sensitivity and 93% specificity. Natriuretic peptide B (Bld) [Mass/Vol] 142.00 pg/mL 0.00 - 900.00 pg/mL [facility] Troponin I.cardiac [Mass/Vol] ng/mL 0.012 - 0.120 ng/mL [facility] Comment on above: REFERENCE RANGE IS 0.012 - 0.120 ng/ml cTnI - The cutoff of 0.120 ng/ml is recommended for diagnosis of AMI, yielding optimal performance of 95% sensitivity and 93% specificity. Albumin [Mass/Vol] 5.0 g/dL 3.5 - 5.0 g/dL [facility] ALP [Catalytic activity/Vol] 113 U/L 38 - 126 U/L [facility] ALT [Catalytic activity/Vol] 44 U/L 21 - 72 U/L [facility] Anion gap [Moles/Vol] 21.3 mmol/L [facility] Comment on above: 04-13 AST [Catalytic activity/Vol] 51 U/L 17 - 59 U/L [facility] Bilirubin [Mass or moles/Vol] 2.9 mg/dL High 0.2 - 1.2 mg/dL [facility] Calcium [Mass/Vol] 10.1 mg/dL 8.4 - 10. 2 mg/dL [facility] Chloride [Moles/Vol] 112 mmol/L High 100 - 1 10 mmol/L [facility] CO2 [Moles/Vol] 15.0 mmol/L Low [facility] Creatinine [Mass/Vol] 0.93 mg/dL 0.80 - 1.50 mg/dL [facility] GFR/1.73 sq M.predicted (S/P/Bld) [Vol rate/Area] 90 mL/min - PINF [facility] Comment on above: Reference Range: 59 to 44 - Mild to moderate loss of kidney function 44 to 30 - Moderate to Severe loss of kidney function 29 to 15 - Severe loss of kidney function <15 - Kidney failure The estimated GFR is based on the MDRD formula for assessment of stable or slowly declining kidney function in adults. Estimated GFR values are not accurate in: -Obese (BMI>34) OR underweight (BMI<20) people -The very old OR very young -Races other than or -T[place] -People with acute illnesses, amputations, or acute kidney failure. Estimated GFR should be interpreted in clinical context and an alternative method such as a timed urine collection for creatinine clearance used to verify questionable results. (Ref. National Kidney Foundation 2015) Glucose [Mass/Vol] 95 mg/dL 70 - 100 mg/dL [facility] Lipase [Catalytic activity/Vol] 57 U/L 23 - 300 U/L [facility] Magnesium [Mass/Vol] 1.8 mg/dL 1.7 - 2 .2 mg/dL [facility] Phosphate [Mass/Vol] 4.0 mg/dL 2.5 - 4 .6 mg/dL [facility] Potassium [Moles/Vol] 3.8 mmol/L 3.5 - 5.0 mmol/L [facility] Protein [Mass/Vol] 8.5 g/dL High 6.0 - 8.2 g/dL [facility] Sodium [Moles/Vol] 148 mmol/L High 136 - 145 mmol/L [facility] Urea nitrogen/Creatinine [Mass ratio] 18 mg/dL 7 - 22 mg/dL [facility] Laboratory - Hematology and Cell countson 12-04-2023 Basophils (Bld) [#/Vol] 0.11 10*3/uL [facility] Basophils/100 WBC (Bld) 0.8 % 0.0 - 2.0 % [facility] Eosinophils (Bld) [#/Vol] 0.01 10*3/uL 0.00 - 0.50 10*3/uL [facility] Eosinophils/100 WBC (Bld) 0.1 % 0.0 - 4.0 % [facility] Erythrocyte distribution width (RBC) [Ratio] 13.9 % 11.4 - 14.4 % [facility] Hematocrit (Bld) [Volume fraction] 49.9 % 34.3 - 53.1 % [facility] Hemoglobin (Bld) [Mass/Vol] 16.3 g/dL 11.4 - 17.7 g/dL [facility] Lymphocytes (Bld) [#/Vol] 1.18 10*3/uL 1.00 - 4.80 10*3/uL [facility] MCH (RBC) [Entitic mass] 31.4 pg 26.2 - 32.7 pg [facility] MCHC (RBC) [Mass/Vol] 32.7 g/dL 31.6 - 35.0 g/dL [facility] MCV (RBC) [Entitic vol] 96.1 fL High 81.6 - 95.6 fL [facility] Monocytes (Bld) [#/Vol] 0.75 10*3/uL 0.20 - 1.20 10*3/uL [facility] Monocytes/100 WBC (Bld) 5.7 % 5.0 - 12.0 % [facility] Neutrophils (Bld) [#/Vol] 10.99 10*3/uL High 2.00 - 7.50 10*3/uL [facility] Nucleated RBC/100 WBC (Bld) [Ratio] 0.0 % [facility] Platelet mean volume (Bld) [Entitic vol] 8.3 fL Low 8.9 - 11.5 fL [facility] Platelets (Bld) [#/Vol] 306 10*3/uL 150 - 375 10*3/uL [facility] RBC (Bld) [#/Vol] 5.19 10*6/uL 3.59 - 6.3 2 10*6/uL [facility] Segmented neutrophils/100 WBC (Bld) 84.2 % High 36.0 - 66.0 % [facility] Variant lymphocytes Auto Ql (Bld) 9.0 % Low 24.0 - 44.0 % [facility] WBC (Bld) [#/Vol] 13.07 10*3/uL High 3.12 - 10 .36 10*3/uL [facility] MAGNESIUMon 12-04-2023 Magnesium [Mass/Vol] 1.8 mg/dL Normal 1.7-2.2 [facility] [place] Comment on above: Performed By: #### E ZENIA #### [facility] [place] [address] [place] [address] NT-PRO BNPon 12-04-2023 Natriuretic peptide B (Bld) [Mass/Vol] 142.00 pg/mL Normal 0.00-900.00 [facility] [place] Comment on above: Performed By: #### T MAGY ALVARADOP #### [facility] [place] [address] [place] [address] No Panel Informationon 12-03 [facility] Test Date: 2023-12-04 Pat Name: ANGELLA FERNANDEZ Department: Room: ED03 Gender: Male 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[id number] Requested By: [id number] Order Number: [id number] Reading MD: Zain [place] [facility] [place] [place] Rate: 117 P: 63 SD: 140 QRS: -16 QRSD: 84 T: 89 QT: 320 QTc: 446 Interpretive Statements Sinus tachycardia with occasional premature ventricular complexes Electronically Signed On 12-04-2023 13:21:41 EST by Zain Thompson MD - 12/04/2023 [facility] Test Date: 2023-12-04 Pat Name: ANGELLA FERNANDEZ Department: Room: ED03 Gender: Male 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[id number] Requested By: [id number] Order Number: [id number] Reading : Zain Norwood Measurements Intervals [place] Rate: 117 P: 63 SD: 140 QRS: -16 QRSD: 84 T: 89 QT: 320 QTc: 446 Interpretive Statements Sinus tachycardia with occasional premature ventricular complexes Electronically Signed On 12-04-2023 13:21:41 EST by Zain Norwood [facility] Work Phone: [facility] Interpretation and review of laboratory results Abnormal [facility] Interpretation and review of laboratory results Abnormal [facility] RBC, NUCLEATED, ABSOLUTE 0.00 0.00 - 0.50 [facility] No Panel InformationOrdered By: Zain Norwood on 12-04-2023 [facility] Work Phone: PHOSPHORUSon 12-04-2023 Phosphate [Mass/Vol] 4.0 mg/dL Normal 2.5-4.6 [facility] Comment on above: Performed By: #### E ZENIA #### [address] [address] TROPONIN Ion 12-04-2023 Troponin I.cardiac [Mass/Vol] ng/mL Normal 0.012-0.120 [facility] Comment on above: Result Comment: RE FERENCE RANGE IS 0.012 - 0.120 ng/ml cTnI - The cutoff of 0.120 ng/ml is recommended for diagnosis of AMI, yielding optimal performance of 95% sensitivity and 93% specificity. Performed By: #### B BOBBY, , RITA #### [address] [address] Troponin I.cardiac [Mass/Vol] ng/mL Normal 0.012-0.120 [facility] [place] Comment on above: Result Comment: RE FERENCE RANGE IS 0.012 - 0.120 ng/ml cTnI - The cutoff of 0.120 ng/ml is recommended for diagnosis of AMI, yielding optimal performance of 95% sensitivity and 93% specificity. Performed By: #### T CHALINO ALVARADO #### [address] [address] XR HIP WITH PELVIS RIGHTon 0 12-04-2023 XR HIP WITH PELVIS RIGHT CLINICAL INDICATION: pain EXAM DESCRIPTION: XR HIP WITH PELVIS RIGHT 12/04/2023 10:23 am COMPARISON: 10/23/2023 TECHNIQUE: Moderate joint space loss is noted in the right hip. FINDINGS: Joint space loss is noted to moderate extent in the right hip centrally and inferiorly. There is increasing density into the subcortical/subchondr al right femoral head since the prior study of 10/23/2023. Joint space narrowing also appears more prominent. Mild flattening of the superior humeral head is noted. IMPRESSION: Worsening degenerative change right hip. Osteonecrosis cannot be excluded. Nonemergent MRI is recommended. Normal [facility] [place] Comment on above: Order Comment: Vet-n o XR Pelvis and Hip - right Vi ewson 12-04-2023 IMPRESSION: Worsening degenerative change right hip. Osteonecrosis cannot be excluded. Nonemergent MRI is recommended. RADIOLOGY CLINICAL INDICATION: pain EXAM DESCRIPTION: XR HIP WITH PELVIS RIGHT 12/04/2023 10:23 am COMPARISON: 10/23/2023 TECHNIQUE: Moderate joint space loss is noted in the right hip. FINDINGS: Joint space loss is noted to moderate extent in the right hip centrally and inferiorly. There is increasing density into the subcortical/subchondr al right femoral head since the prior study of 10/23/2023. Joint space narrowing also appears more prominent. Mild flattening of the superior humeral head is noted. RADIOLOGY Edison Wagoner D O - 12/04/2023 CLINICAL INDICATION: pain EXAM DESCRIPTION: XR HIP WITH PELVIS RIGHT 12/04/2023 10:23 am COMPARISON: 10/23/2023 TECHNIQUE: Moderate joint space loss is noted in the right hip. FINDINGS: Joint space loss is noted to moderate extent in the right hip centrally and inferiorly. There is increasing density into the subcortical/subchondr al right femoral head since the prior study of 10/23/2023. Joint space narrowing also appears more prominent. Mild flattening of the superior humeral head is noted. IMPRESSION IMPRESSION: Worsening degenerative change right hip. Osteonecrosis cannot be excluded. Nonemergent MRI is recommended. [employer] Phone: Radiology Study observation (narrative) [employer] Phone: XR Pelvis and Hip - right Vi ewsOrdered By: Edison Wagoner on 12-04-2023 [facility] [employer] Phone: DRUG SCREEN, URINEon 024 AMPHETAMINE/METHAMP Negative Normal NEG [facility] Comment on above: Result Comment: AMPH /METH screening cut off = 1000 ng/mL Performed By: #### D SEWELL #### [facility] ([id number]) [address] [place] [address] BARBITURATES Negative Normal NEG [facility] Comment on above: Result Comment: Mercy iturates screening cut off value = 200 ng/mL Performed By: #### D SEWELL #### [facility] ([id number]) [address] [place] [address] BENZODIAZEPINES Negative Normal NEG [facility] Comment on above: Result Comment: James odiazepines screening cut off value = 200 ng/mL Performed By: #### D SEWELL #### [facility] ([id number]) [address] [place] [address] CANNABINOIDS Negative Normal NEG [facility] Comment on above: Result Comment: Ney abinoids/THC screening cut off value = 50 ng/mL Performed By: #### D SEWELL #### [facility] ([id number]) [address] [place] [address] COCAINE METABOLITE Positive Abnormal NEG [facility] Comment on above: Result Comment: Conf irmation available upon request. Cocaine screening cut off value = 300 ng/mL Performed By: #### D SEWELL #### [facility] ([id number]) [address] [place] [address] ECSTASY Negative Normal NEG [facility] Comment on above: Result Comment: Ecst asy screening cut off value = 500 ng/mL This report is intended for use in clinical monitoring or management of patients. Performed By: #### D SEWELL #### [facility] ([id number]) [address] [place] [address] METHADONE Negative Normal NEG [facility] Comment on above: Result Comment: Meth adone screening cut off value = 300 ng/mL. Performed By: #### D SEWELL #### [facility] ([id number]) [address] [place] [address] OPIATES Negative Normal NEG [facility] Comment on above: Result Comment: Opia rima screening cut off value = 300 ng/mL NOTE: This test is used for the detection of codeine, hydrocodone (>1000 ng/mL), morphine and hydromorphone (>900 ng/mL) in urine. Performed By: #### D SEWELL #### [facility] ([id number]) [address] [place] [address] OXYCODONE Negative Normal NEG [facility] Comment on above: Result Comment: Oxyc odone screening cut off value = 300 ng/mL NOTE: This test is used for the detection of oxycodone and oxymorphone in urine. Performed By: #### D SEWELL #### [facility] ([id number]) [address] [place] [address] PHENCYCLIDINE Negative Normal NEG [facility] Comment on above: Result Comment: Phen cyclidine screening cut off value = 25 ng/mL Performed By: #### D SEWELL #### [facility] ([id number]) [address] [place] [address] Ethanol [Mass/Vol]on 024 ETHANOL 0.17 g/dL High 0.00-0.08 [facility] Comment on above: Result Comment: This report is intended for use in clinical monitoring or management of patients. Performed By: #### 5 643-2 #### [facility] ([id number]) [address] [place] [address] URN MACROSCOPIC NURon 2023 BILIRUBIN TAZ Negative Normal [facility] Comment on above: Performed By: #### N UM #### [facility] ([id number]) [address] [place] [address] BLOOD/HGB TAZ Trace Abnormal NEG [facility] Comment on above: Performed By: #### N UM #### [facility] ([id number]) [address] [place] [address] GLUCOSE TAZ Negative Normal [facility] Comment on above: Performed By: #### N UM #### [facility] ([id number]) [address] [place] [address] [place] [address] KETONES TAZ 15 mg/dL Abnormal NEG [facility] Comment on above: Performed By: #### N UM #### [facility] ([id number]) [address] [place] [address] LEUKOCYTE ESTERASE TAZ Negative Normal NEG [facility] Comment on above: Performed By: #### N UM #### [facility] ([id number]) [address] [place] [address] NITRITE TAZ Negative Normal NEG [facility] Comment on above: Performed By: #### N UM #### [facility] ([id number]) [address] [place] [address] PH TAZ 6.0 Normal 5.0-8.5 [facility] Comment on above: Performed By: #### N UM #### [facility] ([id number]) [address] [place] [address] PROTEIN TAZ 100 mg/dL Abnormal NEG [facility] Comment on above: Performed By: #### N UM #### [facility] ([id number]) [address] [place] [address] SPECIFIC GRAVITY TAZ >=1.030 Normal 1.003-1.035 [facility] Comment on above: Performed By: #### N UM #### [facility] ([id number]) [address] [place] [address] UROBILINOGEN TAZ 1.0 eu/dL Normal <1.1 [facility] Comment on above: Performed By: #### N UM #### [facility] ([id number]) [address] [place] [address] ACETAMINOPHENon 11-09-2023 Acetaminophen [Mass/Vol] 2.3 ug/mL Low 10.0-30.0 [facility] Comment on above: Result Comment: Refe rence ranges are for therapeutic limits. Performed By: #### C BCA, CMP, 72882-2, 3298-7, 5643-2, 4024-6 #### [facility] ([id number]) [address] [place] [address] CBC AND AUTO DIFFon 11-09-19 24 ABSOLUTE BASOPHIL 0.2 X10E9/L Normal 0.0-0.2 [facility] Comment on above: Performed By: #### C BCA, CMP, 16638-8, 3298-7, 5643-2, 4024-6 #### [facility] ([id number]) [address] [place] [address] ABSOLUTE NEUTROPHIL 8.8 X10E9/L High 1.5-6.6 [facility] Comment on above: Performed By: #### C BCA, CMP, 50291-4, 3298-7, 5643-2, 4024-6 #### [facility] ([id number]) [address] [place] [address] Basophils/100 WBC (Bld) 1.4 % Normal [facility] Comment on above: Performed By: #### C BCA, CMP, 89502-2, 3298-7, 5643-2, 4024-6 #### [facility] ([id number]) [address] [place] [address] Eosinophils (Bld) [#/Vol] 0.0 10*3/uL Normal 0.0-0.4 [facility] Comment on above: Performed By: #### C BCA, CMP, 39882-0, 3298-7, 5643-2, 4024-6 #### [facility] ([id number]) [address] [place] [address] Eosinophils/100 WBC (Bld) 0.2 % Normal [facility] Comment on above: Performed By: #### C BCA, CMP, 09293-1, 3298-7, 5643-2, 4024-6 #### [facility] ([id number]) [address] [place] [address] Erythrocyte distribution width (RBC) [Ratio] 15.0 % Normal 11.5-15.0 [facility] Comment on above: Performed By: #### Kelly DICK, JOHN, 65288-9, 3298-7, 5643-2, 4024-6 #### [facility] ([id number]) [address] [place] [address]227 Hematocrit (Bld) [Volume fraction] 45.4 % Normal 39-49 [facility] Comment on above: Performed By: #### Kelly DICK CMP, , 8-7, 5643-2, 4024-6 #### [facility] ([id number]) [address] [place] [address] Hemoglobin (Bld) [Mass/Vol] 15.6 g/dL Normal 13.0-17.0 [facility] Comment on above: Performed By: #### Kelly DICK CMP, , 3297-7, 5643-2, 4024-6 #### [facility] ([id number]) [address] [place] [address] Lymphocytes (Bld) [#/Vol] 1.7 10*3/uL Normal 1.0-3.5 [facility] Comment on above: Performed By: #### Kelly DICK, JOHN, , 3297-7, 5643-2, 4024-6 #### [facility] ([id number]) [address] [place] [address] Lymphocytes/100 WBC (Bld) 15.1 % Normal [facility] Comment on above: Performed By: #### Kelly DICK, CMP, , 8-7, 5643-2, 4024-6 #### [facility] ([id number]) [address] [place] [address] 85052 MCH (RBC) [Entitic mass] 32.6 pg Normal 27-34 [facility] Comment on above: Performed By: #### C BCA, CMP, 85466-6, 3298-7, 5643-2, 4024-6 #### [facility] ([id number]) [address] [place] [address]16 MCHC (RBC) [Mass/Vol] 34.3 g/dL Normal 32-36 [facility] Comment on above: Performed By: #### Kelly BCA, CMP, 95905-3, 3298-7, 5643-2, 4024-6 #### [facility] ([id number]) [address] [place] [address]908 MCV (RBC) [Entitic vol] 95 fL Normal 80-100 [facility] Comment on above: Performed By: #### Kelly BCA, CMP, 27824-4, 3298-7, 5643-2, 4024-6 #### [facility] ([id number]) [address] [place] [address] Monocytes (Bld) [#/Vol] 0.7 10*3/uL Normal 0-0.9 [facility] Comment on above: Performed By: #### Kelly BCA, CMP, 35155-6, 3298-7, 5643-2, 4024-6 #### [facility] ([id number]) [address] [place] [address] 89485 Monocytes/100 WBC (Bld) 5.7 % Normal [facility] Comment on above: Performed By: #### Kelly BCA, CMP, 13471-4, 3298-7, 5643-2, 4024-6 #### [facility] ([id number]) [address] [place] [address]402 Neutrophils/100 WBC (Bld) 77.6 % Normal [facility] Comment on above: Performed By: #### Kelly BCA, CMP, 56366-4, 3298-7, 5643-2, 4024-6 #### [facility] ([id number]) [address] [place] [address] Platelet mean volume (Bld) [Entitic vol] 6.0 fL Low 7-12 [facility] Comment on above: Performed By: #### C BCA, CMP, 29491-8, 3298-7, 5643-2, 4024-6 #### [facility] ([id number]) [address] [place] [address] 76745 Platelets (Bld) [#/Vol] 600 10*3/uL High 150-450 [facility] Comment on above: Performed By: #### C BCA, CMP, 08047-5, 3298-7, 5643-2, 4024-6 #### [facility] ([id number]) [address] [place] [address] 59503 RBC COUNT 4.77 X10E12/L Normal 4.10-5.70 [facility] Comment on above: Performed By: #### C BCA, CMP, 63823-1, 3298-7, 5643-2, 4024-6 #### [facility] ([id number]) [address] [place] [address] 18952 WBC (Bld) [#/Vol] 11.4 10*3/uL High 4.0-11.0 [facility] Comment on above: Performed By: #### C BCA, CMP, 44718-3, 3298-7, 5643-2, 4024-6 #### [facility] ([id number]) [address] [place] [address]117 COMPREHENSIVE METABOLIC PANE [place] 11-09-2023 Albumin [Mass/Vol] 4.3 g/dL Normal 3.2-5.3 [facility] Comment on above: Performed By: #### C BCA, CMP, 59165-6, 3298-7, 5643-2, 4024-6 #### [facility] ([id number]) [address] [place] [address] 58804 ALP [Catalytic activity/Vol] 106 U/L Normal 39-130 [facility] Comment on above: Performed By: #### C BCA, CMP, 02875-4, 3298-7, 5643-2, 4024-6 #### [facility] ([id number]) [address] [place] [address] 46694 ALT [Catalytic activity/Vol] 33 U/L Normal 0-40 [facility] Comment on above: Performed By: #### C BCA, CMP, 22588-5, 3298-7, 5643-2, 4024-6 #### [facility] ([id number]) [address] [place] [address] 83695 Anion gap [Moles/Vol] 16 mmol/L High 5-15 [facility] Comment on above: Performed By: #### C BCA, CMP, 04558-2, 3298-7, 5643-2, 4024-6 #### [facility] ([id number]) [address] [place] [address] 05541 AST [Catalytic activity/Vol] 41 U/L Normal 0-41 [facility] Comment on above: Performed By: #### C BCA, CMP, 27110-3, 3298-7, 5643-2, 4024-6 #### [facility] ([id number]) [address] [place] [address] 67785 Bilirubin [Mass/Vol] 1.3 mg/dL High 0.3-1.2 [facility] Comment on above: Performed By: #### C BCA, CMP, 36913-5, 3298-7, 5643-2, 4024-6 #### [facility] ([id number]) [address] [place] [address] 34523 Calcium [Mass/Vol] 8.9 mg/dL Normal 8.5-10.5 [facility] Comment on above: Performed By: #### C MAYELIN, CMP, 80888-1, 3298-7, 5643-2, 4024-6 #### [facility] ([id number]) [address] [place] [address] 16804 Chloride [Moles/Vol] 108 mmol/L Normal 98-109 [facility] Comment on above: Performed By: #### C MAYELIN, CMP, 51671-7, 3298-7, 5643-2, 4024-6 #### [facility] ([id number]) [address] [place] [address] 86264 CO2 [Moles/Vol] 19 mmol/L Low 22-32 [facility] Comment on above: Performed By: #### C MAYELIN, JOHN, 68257-7, 3298-7, 5643-2, 4024-6 #### [facility] ([id number]) [address] [place] [address] 60856 Creatinine [Mass/Vol] 0.83 mg/dL Normal 0.70-1.20 [facility] Comment on above: Result Comment: METH OD TRACEABLE TO IDMS STANDARD Performed By: #### C MAYELIN, JOHN, 04735-5, 3298-7, 5643-2, 4024-6 #### [facility] ([id number]) [address] [place] [address] 42167 eGFR (CKD-EPI) NON-RACE DEPENDENT >90 Normal >59 [facility] Comment on above: Result Comment: Reported eGFR is based on the CKD-EPI 2020 equation that does not use a race coefficient. Performed By: #### C MAYELIN, CMP, 47265-3, 3298-7, 5643-2, 4024-6 #### [facility] ([id number]) [address] [place] [address] 31412 Glucose [Mass/Vol] 136 mg/dL High 65-99 [facility] Comment on above: Performed By: #### C BCA, CMP, 04213-8, 3298-7, 5643-2, 4024-6 #### [facility] ([id number]) [address] [place] [address] 16007 Potassium [Moles/Vol] 3.3 mmol/L Low 3.5-5.0 [facility] Comment on above: Performed By: #### C BCA, CMP, 39502-3, 3298-7, 5643-2, 4024-6 #### [facility] ([id number]) [address] [place] [address] 76469 Protein [Mass/Vol] 8.4 g/dL High 6.0-8.0 [facility] Comment on above: Performed By: #### C BCA, CMP, 90824-7, 3298-7, 5643-2, 4024-6 #### [facility] ([id number]) [address] [place] [address] 68871 Sodium [Moles/Vol] 143 mmol/L Normal 134-146 [facility] Comment on above: Performed By: #### C BCA, CMP, 57673-9, 3298-7, 5643-2, 4024-6 #### [facility] ([id number]) [address] [place] [address] 93368 Urea nitrogen [Mass/Vol] 17 mg/dL Normal 5-23 [facility] Comment on above: Performed By: #### C BCA, CMP, 34620-9, 3298-7, 5643-2, 4024-6 #### [facility] ([id number]) [address] [place] [address] 25080 Ethanol [Mass/Vol]on 024 ETHANOL 0.40 g/dL Critically high 0.00-0.08 [facility] Comment on above: Result Comment: This report is intended for use in clinical monitoring or management of patients. Performed By: #### C BCA, CMP, 50607-2, 3298-7, 5643-2, 4024-6 #### [facility] ([id number]) [address] [place] [address] MAGNESIUMon 11-09-2023 Magnesium [Mass/Vol] 2.0 mg/dL Normal 1.8-2.6 [facility] Comment on above: Performed By: #### C BCA, CMP, 23537-7, 3298-7, 5643-2, 4024-6 #### [facility] ([id number]) [address] [place] [address] 05376 Salicylates [Mass/Vol]on SALICYLATE <4.0 Normal 2.0-25.0 [facility] Comment on above: Result Comment: Refe rence ranges are for therapeutic limits. Performed By: #### C BCA, CMP, 00772-4, 3298-7, 5643-2, 4024-6 #### [facility] ([id number]) [address] [place] [address] 99973 BASIC METABOLIC PANELon 09-30 CO2 [Moles/Vol] 26.0 mm/Hg Normal 22.0-30.0 [facility] Comment on above: Performed By: #### B ASIC, MAG, LIPA #### [address] [address] Potassium [Moles/Vol] 7.0 mmol/L Normal [facility] Comment on above: Result Comment: 04-13 Performed By: #### B ASIC, MAG, LIPA #### [address] [address] Chloride [Moles/Vol] 105 mmol/L Normal 100-110 [facility] Comment on above: Performed By: #### B ASIC, MAG, LIPA #### [address] [address] Potassium [Moles/Vol] 3.9 mmol/L Normal 3.5-5.0 [facility] Comment on above: Performed By: #### B ASIC, MAG, LIPA #### [address] [address] Sodium [Moles/Vol] 138 mmol/L Normal 136-145 [facility] [place] [place] Comment on above: Performed By: #### B ASIC, MAG, LIPA #### [address] [address] Calcium [Mass/Vol] 9.4 mg/dL Normal 8.4-10.2 [facility] Comment on above: Performed By: #### B ASIC, MAG, LIPA #### [address] [address] Creatinine [Mass/Vol] 0.77 mg/dL Low 0.80-1.50 [facility] Comment on above: Performed By: #### B ASIC, MAG, LIPA #### [address] [address] GFR/1.73 sq M.predicted (S/P/Bld) [Vol rate/Area] 111 mL/min Normal >60 [facility] Comment on above: Reference Range: 59 to 44 - Mild to moderate loss of kidney function 44 to 30 - Moderate to Severe loss of kidney function 29 to 15 - Severe loss of kidney function <15 - Kidney failure The estimated GFR is based on the MDRD formula for assessment of stable or slowly declining kidney function in adults. Estimated GFR values are not accurate in: -Obese (BMI>34) OR underweight (BMI<20) people -The very old OR very young -Races other than or -Tanz[place] -People with acute illnesses, amputations, or acute kidney failure. Estimated GFR should be interpreted in clinical context and an alternative method such as a timed urine collection for creatinine clearance used to verify questionable results. (Ref. National [employer] Foundation 2015) Result Comment: Refe rence Range: 59 to 44 - Mild to moderate loss of kidney function 44 to 30 - Moderate to Severe loss of kidney function 29 to 15 - Severe loss of kidney function <15 - Kidney failure The estimated GFR is based on the MDRD formula for assessment of stable or slowly declining kidney function in adults. Estimated GFR values are not accurate in: -Obese (BMI>34) OR underweight (BMI<20) people -The very old OR very young -Races other than or -T[place]anian -People with acute illnesses, amputations, or acute kidney failure. Estimated GFR should be interpreted in clinical context and an alternative method such as a timed urine collection for creatinine clearance used to verify questionable results. (Ref. National [employer] 2015) Performed By: #### B ASIC MAG LIPA #### [address] [address] Glucose [Mass/Vol] 88 mg/dL Normal 70-100 [facility] Comment on above: Performed By: #### B ASIC MAG, LIPA #### [address] [address] Urea nitrogen/Creatinine [Mass ratio] 14 mg/dL Normal 7-22 [facility] Comment on above: Performed By: #### B ASIC MAG LIPA #### [address] [address] Anion gap [Moles/Vol] 7.0 mmol/L [facility] Comment on above: 7-16 Chloride [Moles/Vol] 105 mmol/L 100 - 1 10 mmol/L [facility] CO2 [Moles/Vol] 26.0 mmol/L [facility] Interpretation and review of laboratory results Abnormal [facility] Potassium [Moles/Vol] 3.9 mmol/L 3.5 - 5.0 mmol/L [facility] Sodium [Moles/Vol] 138 mmol/L 136 - 145 mmol/L [facility] CBC WITH DIFFERENTIALon 09-30 Basophils (Bld) [#/Vol] 0.04 10*3/uL Normal 0.00-0.20 [facility] [place] Comment on above: Performed By: #### B ASIC MAG, LIPA #### [address] [address] Basophils/100 WBC (Bld) 0.6 % Normal 0.0-2.0 [facility] [place] Comment on above: Performed By: #### B ASIC, MAG, LIPA #### [address] [address] Eosinophils (Bld) [#/Vol] 0.09 10*3/uL Normal 0.00-0.50 [facility] [place] Comment on above: Performed By: #### B ASIC, MAG, LIPA #### [address] [address] Eosinophils/100 WBC (Bld) 1.3 % Normal 0.0-4.0 [facility] [place] Comment on above: Performed By: #### B ASIC, MAG, LIPA #### [address] [address] Erythrocyte distribution width (RBC) [Ratio] 12.7 % Normal 11.4-14.4 [facility] [place] Comment on above: Performed By: #### B ASIC, MAG, LIPA #### [address] [address] Hematocrit (Bld) [Volume fraction] 39.0 % Normal 34.3-53.1 [facility] [place] Comment on above: Performed By: #### B ASIC, MAG, LIPA #### [address] [address] Hemoglobin (Bld) [Mass/Vol] 13.5 g/dL Normal 11.4-17.7 [facility] [place] Comment on above: Performed By: #### B ASIC, MAG, LIPA #### [address] [address] Lymphocytes (Bld) [#/Vol] 1.11 10*3/uL Normal 1.00-4.80 [facility] [place] Comment on above: Performed By: #### B ASIC, MAG, LIPA #### [address] [address] MCH (RBC) [Entitic mass] 31.7 pg Normal 26.2-32.7 [facility] [place] Comment on above: Performed By: #### B ASIC, MAG, LIPA #### [address] [address] MCHC (RBC) [Mass/Vol] 34.6 g/dL Normal 31.6-35.0 [facility] [place] Comment on above: Performed By: #### B ASIC, MAG, LIPA #### [address] [address] MCV (RBC) [Entitic vol] 91.5 fL Normal 81.6-95.6 [facility] [place] Comment on above: Performed By: #### B ASIC, MAG, LIPA #### [address] [address] Monocytes (Bld) [#/Vol] 0.54 10*3/uL Normal 0.20-1.20 [facility] [place] Comment on above: Performed By: #### B ASIC, MAG, LIPA #### [address] [address] Monocytes/100 WBC (Bld) 8.0 % Normal 5.0-12.0 [facility] [place] Comment on above: Performed By: #### B ASIC, MAG, LIPA #### [address] [address] Neutrophils (Bld) [#/Vol] 4.99 10*3/uL Normal 2.00-7.50 [facility] [place] Comment on above: Performed By: #### B ASIC, MAG, LIPA #### [address] [address] NRBC COUNT 0.00 Normal 0.00-0.50 [facility] [place] Comment on above: Performed By: #### B ASIC, MAG, LIPA #### [address] [address] Nucleated RBC/100 WBC (Bld) [Ratio] 0.0 % Normal [facility] [place] Comment on above: Performed By: #### B ASIC, MAG, LIPA #### [address] [address] Platelet mean volume (Bld) [Entitic vol] 8.9 fL Normal 8.9-11.5 [facility] [place] Comment on above: Performed By: #### B ASIC, MAG, LIPA #### [address] [address] Platelets (Bld) [#/Vol] 152 10*3/uL Normal 150-375 [facility] [place] Comment on above: Performed By: #### B ASIC, MAG, LIPA #### [address] [address] RBC (Bld) [#/Vol] 4.26 10*6/uL Normal 3.59-6.32 [facility] [place] Comment on above: Performed By: #### B ASIC, MAG, LIPA #### [address] [address] Segmented neutrophils/100 WBC (Bld) 73.6 % High 36.0-66.0 [facility] [place] Comment on above: Performed By: #### B ASIC, MAG, LIPA #### [address] [address] Variant lymphocytes Auto Ql (Bld) 16.4 % Low 24.0-44.0 [facility] [place] Comment on above: Performed By: #### B ASIC, MAG, LIPA #### [address] [address] WBC (Bld) [#/Vol] 6.78 10*3/uL Normal 3.12-10.36 [facility] [place] Comment on above: Performed By: #### B ASIC, MAG, LIPA #### [address] [address] CBC, EDIF, PLATELETon 2023 Basophils (Bld) [#/Vol] 0.04 10*3/uL 0.00 - 0.20 10*3/uL [facility] Basophils/100 WBC (Bld) 0.6 % 0.0 - 2.0 % [facility] Eosinophils (Bld) [#/Vol] 0.09 10*3/uL 0.00 - 0.50 10*3/uL [facility] Eosinophils/100 WBC (Bld) 1.3 % 0.0 - 4.0 % [facility] Erythrocyte distribution width (RBC) [Ratio] 12.7 % 11.4 - 14.4 % [facility] Hematocrit (Bld) [Volume fraction] 39.0 % 34.3 - 53.1 % [facility] Hemoglobin (Bld) [Mass/Vol] 13.5 g/dL 11.4 - 17.7 g/dL [facility] Interpretation and review of laboratory results Abnormal [facility] Lymphocytes (Bld) [#/Vol] 1.11 10*3/uL 1.00 - 4.80 10*3/uL [facility] MCH (RBC) [Entitic mass] 31.7 pg 26.2 - 32.7 pg [facility] MCHC (RBC) [Mass/Vol] 34.6 g/dL 31.6 - 35.0 g/dL [facility] MCV (RBC) [Entitic vol] 91.5 fL 81.6 - 95.6 fL [facility] Monocytes (Bld) [#/Vol] 0.54 10*3/uL 0.20 - 1.20 10*3/uL [facility] Monocytes/100 WBC (Bld) 8.0 % 5.0 - 12.0 % [facility] Neutrophils (Bld) [#/Vol] 4.99 10*3/uL 2.00 - 7.50 10*3/uL [facility] Nucleated RBC/100 WBC (Bld) [Ratio] 0.0 % [facility] Platelet mean volume (Bld) [Entitic vol] 8.9 fL 8.9 - 11.5 fL [facility] Platelets (Bld) [#/Vol] 152 10*3/uL 150 - 375 10*3/uL [facility] RBC (Bld) [#/Vol] 4.26 10*6/uL 3.59 - 6.3 2 10*6/uL [facility] RBC, NUCLEATED, ABSOLUTE 0.00 0.00 - 0.50 [facility] Segmented neutrophils/100 WBC (Bld) 73.6 % High 36.0 - 66.0 % [facility] Variant lymphocytes Auto Ql (Bld) 16.4 % Low 24.0 - 44.0 % [facility] WBC (Bld) [#/Vol] 6.78 10*3/uL 3.12 - 10. 36 10*3/uL [facility] ALCOHOL (ETHANOL),BLOODon Ethanol [Mass/Vol] 282 mg/dL NINF - 10 mg/dL [facility] Comment on above: Effective 12-19-08 ne w methodology and new instrumentation: lower reportable range is 10 mg/dl. [place] legal limit of intoxication is 80 mg/dl or 0.08 g/dl. [facility] REPORTS OUT IN MG/DL [facility] ALCOHOL MEDICALon 10-23-2023 Ethanol [Mass/Vol] 282 mg/dL Normal <10 [facility] [place], [place] Comment on above: Result Comment: Effe ctive 12-19-08 new methodology and new instrumentation: lower reportable range is 10 mg/dl. [place] legal limit of intoxication is 80 mg/dl or 0.08 g/dl. [facility] REPORTS OUT IN MG/DL Performed By: #### E ZENIA #### [address] [address] C REACTIVE PROTEINon 024 CRP [Mass/Vol] 3.3 mg/dL High 0.0 - 0.9 mg/dL [facility] C-REACTIVE PROTEINon 024 CRP [Mass/Vol] 3.3 mg/dL High 0.0-0.9 [facility] [place] Comment on above: Performed By: #### B BOBBY MAG LIPA #### [address] [address] CBC WITH DIFFERENTIALon 09-30 Basophils (Bld) [#/Vol] 0.08 10*3/uL Normal 0.00-0.20 [facility] [place] Comment on above: Performed By: #### B ASIC MAG, LIPA #### [address] [address] Basophils/100 WBC (Bld) 0.8 % Normal 0.0-2.0 [facility] [place] Comment on above: Performed By: #### B ASIC MAG, LIPA #### [address] [address] Eosinophils (Bld) [#/Vol] 0.02 10*3/uL Normal 0.00-0.50 [facility] [place] Comment on above: Performed By: #### B ASIC MAG, LIPA #### [address] [address] Eosinophils/100 WBC (Bld) 0.2 % Normal 0.0-4.0 [facility] [place] Comment on above: Performed By: #### B ASIC MAG, LIPA #### [address] [address] Erythrocyte distribution width (RBC) [Ratio] 12.6 % Normal 11.4-14.4 [facility] [place] Comment on above: Performed By: #### B ASIC MAG, LIPA #### [address] [address] Hematocrit (Bld) [Volume fraction] 40.4 % Normal 34.3-53.1 [facility] [place] Comment on above: Performed By: #### B ASIC MAG, LIPA #### [address] [address] Hemoglobin (Bld) [Mass/Vol] 14.3 g/dL Normal 11.4-17.7 [facility] [place] Comment on above: Performed By: #### B ASIC MAG, LIPA #### [address] [address] Lymphocytes (Bld) [#/Vol] 1.86 10*3/uL Normal 1.00-4.80 [facility] [place] Comment on above: Performed By: #### B ASIC, MAG, LIPA #### [address] [address] MCH (RBC) [Entitic mass] 31.9 pg Normal 26.2-32.7 [facility] [place] Comment on above: Performed By: #### B ASIC, MAG, LIPA #### [address] [address] MCHC (RBC) [Mass/Vol] 35.4 g/dL High 31.6-35.0 [facility] [place] Comment on above: Performed By: #### B ASIC, MAG, LIPA #### [address] [address] MCV (RBC) [Entitic vol] 90.2 fL Normal 81.6-95.6 [facility] [place] Comment on above: Performed By: #### B ASIC, MAG, LIPA #### [address] [address] Monocytes (Bld) [#/Vol] 0.98 10*3/uL Normal 0.20-1.20 [facility] [place] Comment on above: Performed By: #### B ASIC, MAG, LIPA #### [address] [address] Monocytes/100 WBC (Bld) 9.8 % Normal 5.0-12.0 [facility] [place] Comment on above: Performed By: #### B ASIC, MAG, LIPA #### [address] [address] Neutrophils (Bld) [#/Vol] 7.06 10*3/uL Normal 2.00-7.50 [facility] [place] Comment on above: Performed By: #### B ASIC, MAG, LIPA #### [address] [address] NRBC COUNT 0.00 Normal 0.00-0.50 [facility] [place] Comment on above: Performed By: #### B ASIC, MAG, LIPA #### [address] [address] Nucleated RBC/100 WBC (Bld) [Ratio] 0.0 % Normal [facility] [place] Comment on above: Performed By: #### B ASIC, MAG, LIPA #### [address] [address] Platelet mean volume (Bld) [Entitic vol] 8.8 fL Low 8.9-11.5 [facility] [place] Comment on above: Performed By: #### B ASIC, MAG, LIPA #### [address] [address] Platelets (Bld) [#/Vol] 219 10*3/uL Normal 150-375 [facility] [place] Comment on above: Performed By: #### B ASIC, MAG, LIPA #### [address] [address] RBC (Bld) [#/Vol] 4.48 10*6/uL Normal 3.59-6.32 [facility] [place] Comment on above: Performed By: #### B ASIC, MAG, LIPA #### [address] [address] Segmented neutrophils/100 WBC (Bld) 70.4 % High 36.0-66.0 [facility] [place] Comment on above: Performed By: #### B ASIC, MAG, LIPA #### [address] [address] Variant lymphocytes Auto Ql (Bld) 18.5 % Low 24.0-44.0 [facility] [place] Comment on above: Performed By: #### B ASIC, MAG, LIPA #### [address] [address] WBC (Bld) [#/Vol] 10.03 10*3/uL Normal 3.12-10.36 [facility] [place] Comment on above: Performed By: #### B ASIC, MAG, LIPA #### [address] [address] CBC, EDIF, PLATELETon 2023 Basophils (Bld) [#/Vol] 0.08 10*3/uL 0.00 - 0.20 10*3/uL [facility] Basophils/100 WBC (Bld) 0.8 % 0.0 - 2.0 % [facility] Eosinophils (Bld) [#/Vol] 0.02 10*3/uL 0.00 - 0.50 10*3/uL [facility] Eosinophils/100 WBC (Bld) 0.2 % 0.0 - 4.0 % [facility] Erythrocyte distribution width (RBC) [Ratio] 12.6 % 11.4 - 14.4 % [facility] Hematocrit (Bld) [Volume fraction] 40.4 % 34.3 - 53.1 % [facility] Hemoglobin (Bld) [Mass/Vol] 14.3 g/dL 11.4 - 17.7 g/dL [facility] Interpretation and review of laboratory results Abnormal [facility] Lymphocytes (Bld) [#/Vol] 1.86 10*3/uL 1.00 - 4.80 10*3/uL [facility] MCH (RBC) [Entitic mass] 31.9 pg 26.2 - 32.7 pg [facility] MCHC (RBC) [Mass/Vol] 35.4 g/dL High 31.6 - 35.0 g/dL [facility] MCV (RBC) [Entitic vol] 90.2 fL 81.6 - 95.6 fL [facility] Monocytes (Bld) [#/Vol] 0.98 10*3/uL 0.20 - 1.20 10*3/uL [facility] Monocytes/100 WBC (Bld) 9.8 % 5.0 - 12.0 % [facility] Neutrophils (Bld) [#/Vol] 7.06 10*3/uL 2.00 - 7.50 10*3/uL [facility] Nucleated RBC/100 WBC (Bld) [Ratio] 0.0 % [facility] Platelet mean volume (Bld) [Entitic vol] 8.8 fL Low 8.9 - 11.5 fL [facility] Platelets (Bld) [#/Vol] 219 10*3/uL 150 - 375 10*3/uL [facility] RBC (Bld) [#/Vol] 4.48 10*6/uL 3.59 - 6.3 2 10*6/uL [facility] RBC, NUCLEATED, ABSOLUTE 0.00 0.00 - 0.50 [facility] Segmented neutrophils/100 WBC (Bld) 70.4 % High 36.0 - 66.0 % [facility] Variant lymphocytes Auto Ql (Bld) 18.5 % Low 24.0 - 44.0 % [facility] WBC (Bld) [#/Vol] 10.03 10*3/uL 3.12 - 10 .36 10*3/uL [facility]AB[facility] [place] 10-23-2023 Albumin [Mass/Vol] 4.3 g/dL Normal 3.5-5.0 [facility] [place], [place] Comment on above: Performed By: #### B ASIC, MAG, LIPA #### [address] [address] Calcium [Mass/Vol] 8.5 mg/dL Normal 8.4-10.2 [facility] [place], [place] Comment on above: Performed By: #### B ASIC, MAG, LIPA #### [address] [address] CO2 [Moles/Vol] 14.0 mm/Hg Low 22.0-30.0 [facility] [place] Comment on above: Performed By: #### B ASIC, MAG, LIPA #### [address] [address] Glucose [Mass/Vol] 120 mg/dL High 70-100 [facility] [place], [place] Comment on above: Performed By: #### B ASIC, MAG, LIPA #### [address] [address] Potassium [Moles/Vol] 18.4 mmol/L Normal [facility] Comment on above: Result Comment: 04-13 Performed By: #### B ASIC, MAG, LIPA #### [address] [address] Protein [Mass/Vol] 7.3 g/dL Normal 6.0-8.2 [facility] [place], [place] Comment on above: Performed By: #### B ASIC, MAG, LIPA #### [address] [address] ALP [Catalytic activity/Vol] 82 U/L Normal 38-126 [facility] [place] Comment on above: Performed By: #### B ASIC, MAG, LIPA #### [address] [address] ALT [Catalytic activity/Vol] 42 U/L Normal 21-72 [facility] [place] Comment on above: Performed By: #### B ASIC, MAG, LIPA #### [address] [address] AST [Catalytic activity/Vol] 67 U/L High 17-59 [facility] [place] Comment on above: Performed By: #### B MAG BOBBY LIPA #### [address] [address] Bilirubin [Mass or moles/Vol] 2.7 mg/dL High 0.2-1.2 [facility] [place] Comment on above: Performed By: #### B MAG BOBBY LIPA #### [address] [address] Creatinine [Mass/Vol] 0.79 mg/dL Low 0.80-1.50 [facility] [place] Comment on above: Performed By: #### B MAG BOBBY LIPA #### [address] [address] GFR/1.73 sq M.predicted (S/P/Bld) [Vol rate/Area] 108 mL/min Normal >60 [facility] [place] Comment on above: Result Comment: Refe rence Range: 59 to 44 - Mild to moderate loss of kidney function 44 to 30 - Moderate to Severe loss of kidney function 29 to 15 - Severe loss of kidney function <15 - Kidney failure The estimated GFR is based on the MDRD formula for assessment of stable or slowly declining kidney function in adults. Estimated GFR values are not accurate in: -Obese (BMI>34) OR underweight (BMI<20) people -The very old OR very young -Races other than or -[place] -People with acute illnesses, amputations, or acute kidney failure. Estimated GFR should be interpreted in clinical context and an alternative method such as a timed urine collection for creatinine clearance used to verify questionable results. (Ref. [employer] 2015) Performed By: #### B ASIC MAG, LIPA #### [address] [address] Urea nitrogen/Creatinine [Mass ratio] 14 mg/dL Normal 7-22 [facility] [place] Comment on above: Performed By: #### B ASIC MAG, LIPA #### [address] [address] Potassium [Moles/Vol] 3.5 mmol/L Normal 3.5-5.0 [facility] [place] Comment on above: Performed By: #### B MAG BOBBY, LIPA #### [address] [address] Sodium [Moles/Vol] 139 mmol/L Normal 136-145 [facility] [place], [place] Comment on above: Performed By: #### B ASIC, MAG, LIPA #### [address] [address] Chloride [Moles/Vol] 106 mmol/L Normal 100-110 [facility] [place] Comment on above: Performed By: #### B ASIC, MAG, LIPA #### [address] [address] Albumin [Mass/Vol] 4.3 g/dL 3.5 - 5.0 g/dL [facility] ALP [Catalytic activity/Vol] 82 U/L 38 - 126 U/L [facility] ALT [Catalytic activity/Vol] 42 U/L 21 - 72 U/L [facility] Anion gap [Moles/Vol] 18.4 mmol/L [facility] Comment on above: 7-16 AST [Catalytic activity/Vol] 67 U/L High 17 - 59 U/L [facility] Bilirubin [Mass or moles/Vol] 2.7 mg/dL High 0.2 - 1.2 mg/dL [facility] Calcium [Mass/Vol] 8.5 mg/dL 8.4 - 10. 2 mg/dL [facility] Chloride [Moles/Vol] 106 mmol/L 100 - 1 10 mmol/L [facility] CO2 [Moles/Vol] 14.0 mmol/L Low [facility] Creatinine [Mass/Vol] 0.79 mg/dL Low 0.80 - 1.50 mg/dL [facility] GFR/1.73 sq M.predicted (S/P/Bld) [Vol rate/Area] 108 mL/min - PINF [facility] Comment on above: Reference Range: 59 to 44 - Mild to moderate loss of kidney function 44 to 30 - Moderate to Severe loss of kidney function 29 to 15 - Severe loss of kidney function <15 - Kidney failure The estimated GFR is based on the MDRD formula for assessment of stable or slowly declining kidney function in adults. Estimated GFR values are not accurate in: -Obese (BMI>34) OR underweight (BMI<20) people -The very old OR very young -Races other than or -[place] -People with acute illnesses, amputations, or acute kidney failure. Estimated GFR should be interpreted in clinical context and an alternative method such as a timed urine collection for creatinine clearance used to verify questionable results. (Ref. National [employer] 2015) Glucose [Mass/Vol] 120 mg/dL High 70 - 100 mg/dL [facility] Potassium [Moles/Vol] 3.5 mmol/L 3.5 - 5.0 mmol/L [facility] Protein [Mass/Vol] 7.3 g/dL 6.0 - 8.2 g/dL [facility] Sodium [Moles/Vol] 139 mmol/L 136 - 145 mmol/L [facility] Urea nitrogen/Creatinine [Mass ratio] 14 mg/dL 7 - 22 mg/dL [facility] CT PE STUDYon 10-23-2023 CT PE STUDY CLINICAL INDICATION: Right side chest pain/tachycardia/elev ated D-dimer EXAM DESCRIPTION: CT PE STUDY 10/23/2023 12:17 pm COMPARISON: 04/24/2020. TECHNIQUE: Contiguous axial imaging was performed through the pulmonary arteries per CTA protocol after the uncomplicated intravenous administration of 75 mL of Isovue 370 contrast. Coronal and sagittal reformatted images were created and reviewed. Three dimensional reformatted images were created and reviewed on a separate dedicated workstation. Dose modulation techniques were employed including automated exposure control, adjustment of mA and kV according to patient size and the use of iterative reconstruction. FINDINGS: The imaged thyroid gland is homogeneous, as visualized. No axillary, supraclavicular, mediastinal or hilar lymphadenopathy is identified utilizing CT size criteria. The thoracic aorta is motion degraded and grossly normal without evidence of aneurysm or dissection. The pulmonary trunk is normal in caliber. Left lower lobe segmental pulmonary arteries are motion degraded somewhat limiting examination. No central filling defect is identified to suggest acute pulmonary embolism, as visualized. The heart is stable in size without evidence of pericardial effusion. There is no CT evidence of right heart strain. The central airways are patent. Minimal bronchial wall thickening is present. There is minimal mucous plugging in the right and lower lobe airways. Minimal subsegmental atelectasis/scarring is noted in the lower lobes, left greater than right. No dense consolidation, pleural effusion or pneumothorax is identified. Noncalcified pulmonary nodule in the right middle lobe measuring 3 mm; axial image 78. The chest wall soft tissues are stable with bilateral gynecomastia. The upper abdomen is partially imaged. The liver is steatotic. A small to moderate sliding-type hiatal hernia is present. Osseous structures are intact without acute abnormality or suspicious bone lesion IMPRESSION: 1. Suboptimal evaluation of the segmental and subsegmental pulmonary arteries of the left lower lobe due to motion degradation. No convincing CT evidence of acute pulmonary embolism, as visualized. 2. Bilateral bronchial wall thickening with minimal mucous plugging in the lower lobe airways. Minimal bilateral subsegmental atelectasis/scarring. 3. Small to moderate sliding-type hiatal hernia. 4. Noncalcified pulmonary nodule in the right middle lobe measuring 3 mm. A follow-up CT of the chest could be performed in 12 months utilizing [employer] guidelines if clinically warranted. [facility] Comment on above: Order Comment: Vet-n o CT Pulmonary arteries for pu lmonary emboluson 10-23-2023 CLINICAL INDICATION: Right side chest pain/tachycardia/elev ated D-dimer EXAM DESCRIPTION: CT PE STUDY 10/23/2023 12:17 pm COMPARISON: 04/24/2020. TECHNIQUE: Contiguous axial imaging was performed through the pulmonary arteries per CTA protocol after the uncomplicated intravenous administration of 75 mL of Isovue 370 contrast. Coronal and sagittal reformatted images were created and reviewed. Three dimensional reformatted images were created and reviewed on a separate dedicated workstation. Dose modulation techniques were employed including automated exposure control, adjustment of mA and kV according to patient size and the use of iterative reconstruction. FINDINGS: The imaged thyroid gland is homogeneous, as visualized. No axillary, supraclavicular, mediastinal or hilar lymphadenopathy is identified utilizing CT size criteria. The thoracic aorta is motion degraded and grossly normal without evidence of aneurysm or dissection. The pulmonary trunk is normal in caliber. Left lower lobe segmental pulmonary arteries are motion degraded somewhat limiting examination. No central filling defect is identified to suggest acute pulmonary embolism, as visualized. The heart is stable in size without evidence of pericardial effusion. There is no CT evidence of right heart strain. The central airways are patent. Minimal bronchial wall thickening is present. There is minimal mucous plugging in the right and lower lobe airways. Minimal subsegmental atelectasis/scarring is noted in the lower lobes, left greater than right. No dense consolidation, pleural effusion or pneumothorax is identified. Noncalcified pulmonary nodule in the right middle lobe measuring 3 mm; axial image 78. The chest wall soft tissues are stable with bilateral gynecomastia. The upper abdomen is partially imaged. The liver is steatotic. A small to moderate sliding-type hiatal hernia is present. Osseous structures are intact without acute abnormality or suspicious bone lesion RADIOLOGY Marito Jacobo, DO - 10/23/2023 CLINICAL INDICATION: Right side chest pain/tachycardia/elev ated D-dimer EXAM DESCRIPTION: CT PE STUDY 10/23/2023 12:17 pm COMPARISON: 04/24/2020. TECHNIQUE: Contiguous axial imaging was performed through the pulmonary arteries per CTA protocol after the uncomplicated intravenous administration of 75 mL of Isovue 370 contrast. Coronal and sagittal reformatted images were created and reviewed. Three dimensional reformatted images were created and reviewed on a separate dedicated workstation. Dose modulation techniques were employed including automated exposure control, adjustment of mA and kV according to patient size and the use of iterative reconstruction. FINDINGS: The imaged thyroid gland is homogeneous, as visualized. No axillary, supraclavicular, mediastinal or hilar lymphadenopathy is identified utilizing CT size criteria. The thoracic aorta is motion degraded and grossly normal without evidence of aneurysm or dissection. The pulmonary trunk is normal in caliber. Left lower lobe segmental pulmonary arteries are motion degraded somewhat limiting examination. No central filling defect is identified to suggest acute pulmonary embolism, as visualized. The heart is stable in size without evidence of pericardial effusion. There is no CT evidence of right heart strain. The central airways are patent. Minimal bronchial wall thickening is present. There is minimal mucous plugging in the right and lower lobe airways. Minimal subsegmental atelectasis/scarring is noted in the lower lobes, left greater than right. No dense consolidation, pleural effusion or pneumothorax is identified. Noncalcified pulmonary nodule in the right middle lobe measuring 3 mm; axial image 78. The chest wall soft tissues are stable with bilateral gynecomastia. The upper abdomen is partially imaged. The liver is steatotic. A small to moderate sliding-type hiatal hernia is present. Osseous structures are intact without acute abnormality or suspicious bone lesion IMPRESSION IMPRESSION: 1. Suboptimal evaluation of the segmental and subsegmental pulmonary arteries of the left lower lobe due to motion degradation. No convincing CT evidence of acute pulmonary embolism, as visualized. 2. Bilateral bronchial wall thickening with minimal mucous plugging in the lower lobe airways. Minimal bilateral subsegmental atelectasis/scarring. 3. Small to moderate sliding-type hiatal hernia. 4. Noncalcified pulmonary nodule in the right middle lobe measuring 3 mm. A follow-up CT of the chest could be performed in 12 months utilizing [employer] guidelines if clinically warranted. [employer] Work Phone: [employer] Phone: Radiology Study observation (narrative) [facility] [employer] Phone: D DIMERon 10-23-2023 D DIMER 6.63 ug/mL High 0.27-0.56 [facility] [place] Comment on above: Result Comment: 04-08 D-DIMER QUANTITATIVE REFERENCE INTERVAL: Anticoagulant therapy decreases the D-dimer levels and may generate false negative results Quantitative D-dimer performed on the Stago-Max analyzer. Cutoff value is >20.00 FEU in an attempt to obtain a negative predictive value close to 100 percent. (for DVT and PE). Non-VTE causes of elevated D-dimer include: trauma, ME, stroke, sepsis, DIC, active collagen diseases, post-surgery, cancer, thrombolytic therapy, large hematoma, diabetes, and post-. Clinical data and imaging studies may be used in order to confirm a positive D-dimer test. The above D-dimer assay may be used for DIC screening in conjunction with other coagulation procedures (PT, PTT, fibrinogen and platelet count). Pathology consultation is available. 04-08-23 Performed By: #### C AURORA, BASIC #### [address] [address] D-DIMER,QUANTITATIVEon 10-23 D-DIMER 6.63 ug/mL High 0.27 - 0.56 ug/mL [facility] Comment on above: 04-08-23 D-DIMER CESILIA TITATIVE REFERENCE INTERVAL: Anticoagulant therapy decreases the D-dimer levels and may generate false negative results Quantitative D-dimer performed on the Stago-Max analyzer. Cutoff value is >20.00 FEU in an attempt to obtain a negative predictive value close to 100 percent. (for DVT and PE). Non-VTE causes of elevated D-dimer include: trauma, ME, stroke, sepsis, DIC, active collagen diseases, post-surgery, cancer, thrombolytic therapy, large hematoma, diabetes, and post-. Clinical data and imaging studies may be used in order to confirm a positive D-dimer test. The above D-dimer assay may be used for DIC screening in conjunction with other coagulation procedures (PT, PTT, fibrinogen and platelet count). Pathology consultation is available. 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1970 Requested By: [id number] Order Number: [id number] Reading MD: Zain Norwood Measurements Intervals [place] Rate: 102 P: 77 SD: 150 QRS: 27 QRSD: 92 T: 90 QT: 368 QTc: 479 Interpretive Statements Sinus tachycardia Nonspecific T wave abnormality Electronically Signed On 10-23-2023 14:45:09 EST by Zain Norwood Normal [facility] [place] Comment on above: Order Comment: Vet-n o [facility] Test Date: 2023-10-23 Pat Name: ANGELLA FERNANDEZ Department: Room: ED10 Gender: Male 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1970 Requested By: [id number] Order Number: [id number] Reading MD: Zain Norwood Measurements Intervals [place] Rate: 102 P: 77 SD: 150 QRS: 27 QRSD: 92 T: 90 QT: 368 QTc: 479 Interpretive Statements Sinus tachycardia Nonspecific T wave abnormality Electronically Signed On 10-23-2023 14:45:09 EST by Zain Thompson MD - 10/23/2023 [facility] Test Date: 2023-10-23 Pat Name: ANGELLA FERNANDEZ Department: Room: 10 Gender: Male 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1970 Requested By: [id number] Order Number: [id number] Reading MD: Zain Norwood Measurements Intervals [place] Rate: 102 P: 77 SD: 150 QRS: 27 QRSD: 92 T: 90 QT: 368 QTc: 479 Interpretive Statements Sinus tachycardia Nonspecific T wave abnormality Electronically Signed On 10-23-2023 14:45:09 EST by Zain Norwood [facility] [employer] Phone: LIPASEon 10-23-2023 Lipase [Catalytic activity/Vol] 82 U/L Normal 23-300 [facility] [place] Comment on above: Order Comment: For i ndwelling catheters, specimen collection is acceptableon catheter day 1 and 2 only. ?SPECIMEN SOURCE URINE - CLEAN CATCHAdd on to drawn labs Performed By: #### B ASIC, MAG, LIPA #### [address] [address] Lipase [Catalytic activity/Vol] 82 U/L 23 - 300 U/L [facility] NT-PRO B-TYPE NATRIURETIC PE PTIDEon 10-23-2023 Natriuretic peptide B (Bld) [Mass/Vol] 335.00 pg/mL 0.00 - 900.00 pg/mL [facility] NT-PRO BNPon 10-23-2023 Natriuretic peptide B (Bld) [Mass/Vol] 335.00 pg/mL Normal 0.00-900.00 [facility] [place] Comment on above: Performed By: #### B ASIC, MAG, LIPA #### [address] [id number] No Panel InformationOrdered By: Zain Norwood on 10-23-2023 [employer] Phone: No Panel Informationon 10-23 Interpretation and review of laboratory results Abnormal [facility] Portable XR Chest Viewson IMPRESSION: Stable chest without acute radiographic abnormality. RADIOLOGY CLINICAL INDICATION: Right chest/rib pain EXAM DESCRIPTION: XR CHEST 1 VIEW PORTABLE 10/23/2023 10:47 am COMPARISON: 04/30/2023. TECHNIQUE: Single view. FINDINGS: Trachea is midline. The cardiac, mediastinal and hilar silhouettes are stable. No focal consolidation, pleural effusion or pneumothorax is identified. Osseous structures are grossly intact. RADIOLOGY Marito Jacobo, DO - 10/23/2023 CLINICAL INDICATION: Right chest/rib pain EXAM DESCRIPTION: XR CHEST 1 VIEW PORTABLE 10/23/2023 10:47 am COMPARISON: 04/30/2023. TECHNIQUE: Single view. FINDINGS: Trachea is midline. The cardiac, mediastinal and hilar silhouettes are stable. No focal consolidation, pleural effusion or pneumothorax is identified. Osseous structures are grossly intact. IMPRESSION IMPRESSION: Stable chest without acute radiographic abnormality. [employer] Work Phone: Radiology Study observation (narrative) [employer] Phone: Portable XR Chest ViewsOrder ed By: Marito Jacobo on 10-23-2023 [employer] Phone: SED RATEon 10-23-2023 ESR (Bld) [Velocity] 12 mm/h High 0-10 [facility] [place] Comment on above: Performed By: #### B ASIC, , RITA #### [address] [address] SEDIMENTATION RATE, AUTOMATE Don 10-23-2023 ESR (Bld) [Velocity] 12 mm/h High [facility] Interpretation and review of laboratory results Abnormal [facility] TROPONINon 10-23-2023 Troponin I.cardiac [Mass/Vol] 0.095 ng/mL 0.012 - 0.120 ng/mL [facility] Comment on above: REFERENCE RANGE IS 0.012 - 0.120 ng/ml cTnI - The cutoff of 0.120 ng/ml is recommended for diagnosis of AMI, yielding optimal performance of 95% sensitivity and 93% specificity. [facility] Troponin I.cardiac [Mass/Vol] 0.097 ng/mL 0.012 - 0.120 ng/mL [facility] Comment on above: REFERENCE RANGE IS 0.012 - 0.120 ng/ml cTnI - The cutoff of 0.120 ng/ml is recommended for diagnosis of AMI, yielding optimal performance of 95% sensitivity and 93% specificity. [facility] Troponin I.cardiac [Mass/Vol] 0.085 ng/mL 0.012 - 0.120 ng/mL [facility] Comment on above: REFERENCE RANGE IS 0.012 - 0.120 ng/ml cTnI - The cutoff of 0.120 ng/ml is recommended for diagnosis of AMI, yielding optimal performance of 95% sensitivity and 93% specificity. TROPONIN Ion 10-23-2023 Troponin I.cardiac [Mass/Vol] 0.095 ng/mL Normal 0.012-0.120 [facility] [place] Comment on above: Result Comment: RE FERENCE RANGE IS 0.012 - 0.120 ng/ml cTnI - The cutoff of 0.120 ng/ml is recommended for diagnosis of AMI, yielding optimal performance of 95% sensitivity and 93% specificity. Performed By: #### B MAG BOBBY LIPA #### [address] [address] Troponin I.cardiac [Mass/Vol] 0.097 ng/mL Normal 0.012-0.120 [facility] [place] Comment on above: Result Comment: RE FERENCE RANGE IS 0.012 - 0.120 ng/ml cTnI - The cutoff of 0.120 ng/ml is recommended for diagnosis of AMI, yielding optimal performance of 95% sensitivity and 93% specificity. Performed By: #### B ASICMAG, LIPA #### [address] [address] Troponin I.cardiac [Mass/Vol] 0.085 ng/mL Normal 0.012-0.120 [facility] [place] Comment on above: Result Comment: RE FERENCE RANGE IS 0.012 - 0.120 ng/ml cTnI - The cutoff of 0.120 ng/ml is recommended for diagnosis of AMI, yielding optimal performance of 95% sensitivity and 93% specificity. Performed By: #### B ASICMAG, LIPA #### [address] [address] XR CHEST 1 VIEW PORTABLE 0 10-23-2023 XR CHEST 1 VIEW PORTABLE CLINICAL INDICATION: Right chest/rib pain EXAM DESCRIPTION: XR CHEST 1 VIEW PORTABLE 10/23/2023 10:47 am COMPARISON: 04/30/2023. TECHNIQUE: Single view. FINDINGS: Trachea is midline. The cardiac, mediastinal and hilar silhouettes are stable. No focal consolidation, pleural effusion or pneumothorax is identified. Osseous structures are grossly intact. IMPRESSION: Stable chest without acute radiographic abnormality. Normal [facility] [place] Comment on above: Order Comment: Vet-n o XR HIP WITH PELVIS RIGHTon 0 10-23-2023 XR HIP WITH PELVIS RIGHT CLINICAL INDICATION: Right hip pain EXAM DESCRIPTION: XR HIP WITH PELVIS RIGHT 10/23/2023 10:48 am COMPARISON: None available. TECHNIQUE: Two views. FINDINGS: Pelvic ring is intact. Minimal degenerative changes are noted in the pubic symphysis and sacroiliac joints without evidence of diastasis. There is minimal osteoarthritis of bilateral hips. No acute fracture or dislocation of the right hip is identified. IMPRESSION: 1. No acute osseous abnormality. 2. Osteoarthritis. Normal [facility] [place] Comment on above: Order Comment: Vet-n o XR Pelvis and Hip - right Vi ewson 10-23-2023 IMPRESSION: 1. No acute osseous abnormality. 2. Osteoarthritis. RADIOLOGY CLINICAL INDICATION: Right hip pain EXAM DESCRIPTION: XR HIP WITH PELVIS RIGHT 10/23/2023 10:48 am COMPARISON: None available. TECHNIQUE: Two views. FINDINGS: Pelvic ring is intact. Minimal degenerative changes are noted in the pubic symphysis and sacroiliac joints without evidence of diastasis. There is minimal osteoarthritis of bilateral hips. No acute fracture or dislocation of the right hip is identified. RADIOLOGY Marito Jacobo, DO - 10/23/2023 CLINICAL INDICATION: Right hip pain EXAM DESCRIPTION: XR HIP WITH PELVIS RIGHT 10/23/2023 10:48 am COMPARISON: None available. TECHNIQUE: Two views. FINDINGS: Pelvic ring is intact. Minimal degenerative changes are noted in the pubic symphysis and sacroiliac joints without evidence of diastasis. There is minimal osteoarthritis of bilateral hips. No acute fracture or dislocation of the right hip is identified. IMPRESSION IMPRESSION: 1. No acute osseous abnormality. 2. Osteoarthritis. [facility] [employer] Work Phone: [facility] [employer] Work Phone: Radiology Study observation (narrative) [facility] Work Phone: C REACTIVE PROTEINon 023 CRP [Mass/Vol] 0.8 mg/dL 0.0 - 0.9 mg/dL [facility] CBC, EDIF, PLATELETon 2022 Basophils (Bld) [#/Vol] 0.13 10*3/uL [facility] Basophils/100 WBC (Bld) 1.6 % 0.0 - 2.0 % [facility] Eosinophils (Bld) [#/Vol] 0.15 10*3/uL 0.00 - 0.50 10*3/uL [facility] Eosinophils/100 WBC (Bld) 1.9 % 0.0 - 4.0 % [facility] Erythrocyte distribution width (RBC) [Ratio] 12.4 % 11.4 - 14.4 % [facility] Hematocrit (Bld) [Volume fraction] 50.3 % 34.3 - 53.1 % [facility] Hemoglobin (Bld) [Mass/Vol] 17.0 g/dL 11.4 - 17.7 g/dL [facility] Lymphocytes (Bld) [#/Vol] 2.59 10*3/uL 1.00 - 4.80 10*3/uL [facility] MCH (RBC) [Entitic mass] 32.2 pg 26.2 - 32.7 pg [facility] MCHC (RBC) [Mass/Vol] 33.8 g/dL 31.6 - 35.0 g/dL [facility] MCV (RBC) [Entitic vol] 95.3 fL 81.6 - 95.6 fL [facility] Monocytes (Bld) [#/Vol] 0.77 10*3/uL 0.20 - 1.20 10*3/uL [facility] Monocytes/100 WBC (Bld) 9.7 % 5.0 - 12.0 % [facility] Neutrophils (Bld) [#/Vol] 4.25 10*3/uL 2.00 - 7.50 10*3/uL [facility] Nucleated RBC/100 WBC (Bld) [Ratio] 0.0 % [facility] Platelet mean volume (Bld) [Entitic vol] 9.3 fL 8.9 - 11.5 fL [facility] Platelets (Bld) [#/Vol] 309 10*3/uL 150 - 375 10*3/uL [facility] RBC (Bld) [#/Vol] 5.28 10*6/uL 3.59 - 6.3 2 10*6/uL [facility] RBC, NUCLEATED, ABSOLUTE 0.00 0.00 - 0.50 [facility] Segmented neutrophils/100 WBC (Bld) 53.7 % 36.0 - 66.0 % [facility] Variant lymphocytes Auto Ql (Bld) 32.7 % 24.0 - 44.0 % [facility] WBC (Bld) [#/Vol] 7.92 10*3/uL 3.12 - 10. 36 10*3/uL [facility] COMPREHENSIVE METABOLIC PANE Wilmar 08-29-2023 Albumin [Mass/Vol] 4.8 g/dL 3.5 - 5.0 g/dL [facility] ALP [Catalytic activity/Vol] 67 U/L 38 - 126 U/L [facility] ALT [Catalytic activity/Vol] 24 U/L 21 - 72 U/L [facility] Anion gap [Moles/Vol] 11.4 mmol/L [facility] Comment on above: 7-16 AST [Catalytic activity/Vol] 44 U/L 17 - 59 U/L [facility] Bilirubin [Mass or moles/Vol] 2.7 mg/dL High 0.2 - 1.2 mg/dL [facility] Calcium [Mass/Vol] 10.0 mg/dL 8.4 - 10. 2 mg/dL [facility] Chloride [Moles/Vol] 107 mmol/L 100 - 1 10 mmol/L [facility] CO2 [Moles/Vol] 22.0 mmol/L [facility] Creatinine [Mass/Vol] 0.84 mg/dL 0.80 - 1.50 mg/dL [facility] GFR/1.73 sq M.predicted (S/P/Bld) [Vol rate/Area] 101 mL/min - PINF [facility] Comment on above: Reference Range: 59 to 44 - Mild to moderate loss of kidney function 44 to 30 - Moderate to Severe loss of kidney function 29 to 15 - Severe loss of kidney function <15 - Kidney failure The estimated GFR is based on the MDRD formula for assessment of stable or slowly declining kidney function in adults. Estimated GFR values are not accurate in: -Obese (BMI>34) OR underweight (BMI<20) people -The very old OR very young -Races other than or -T[place]anian -People with acute illnesses, amputations, or acute kidney failure. Estimated GFR should be interpreted in clinical context and an alternative method such as a timed urine collection for creatinine clearance used to verify questionable results. (Ref. National Kidney Foundation 2015) Glucose [Mass/Vol] 84 mg/dL 70 - 100 mg/dL [facility] Potassium [Moles/Vol] 3.8 mmol/L 3.5 - 5.0 mmol/L [facility] Protein [Mass/Vol] 8.3 g/dL High 6.0 - 8.2 g/dL [facility] Sodium [Moles/Vol] 140 mmol/L 136 - 145 mmol/L [facility] Urea nitrogen/Creatinine [Mass ratio] 13 mg/dL 7 - 22 mg/dL [facility] LIPID PANEL W CALCULATED LDL on 08-29-2023 Cholesterol [Mass/Vol] 276 mg/dL High 0 - 200 mg/dL [facility] Comment on above: Cholesterol risk fac tor: Desirable < 200 mg/dL Borderline 200 - 239 mg/dL High risk > 239 mg/dL Cholesterol in HDL [Mass/Vol] 52 mg/dL [facility] Comment on above: HDL CHOLESTEROL: Optimal: > 60 mg/dl Low: < 40 mg/dl Cholesterol in LDL [Mass/Vol] 179 mg/dL [facility] Comment on above: REFERENCE RANGE FOR LDL (CALCULATED) <70 mg/dl for very high risk patients* <100 mg/dl optimal for anyone and recommended for high risk patients 100-130 mg/dl acceptable for low and moderate risk patients, with a therapeutic option to set a goal of <100 mg/dl 130-160 mg/dl, borderline high, treatment to be considered >160 mg/dl, high *Very high risk people/ patients have cardiovascular disease together with either multiple risk factors, or severely/poorly controlled multiple risk factors, or metabolic syndromes (e.g. obesity). Patients hospitalized with acute coronary syndrome, cerebral vascular accident are also very high risk. High-risk people/patients have coronary artery disease or disease of the blood vessels in the brain or extremities, or have diabetes, or multiple (>2) risk factors (smoking, hypertension) and therefore they have a 20% or more risk of having a heart attack within 10 years. Cholesterol in LDL/Cholesterol in HDL [Mass ratio] 3 {ratio} NINF - 3 [facility] Cholesterol in VLDL [Mass/Vol] 45 mg/dL [facility] Triglyceride [Mass/Vol] 226 mg/dL High 35 - 160 mg/dL [facility] No Panel Informationon 08-29 Interpretation and review of laboratory results Abnormal [facility] SEDIMENTATION RATE, AUTOMATE Don 08-29-2023 ESR (Bld) [Velocity] 4 mm/h [facility] TSHon 08-29-2023 TSH Qn 1.48 m[IU]/L [facility] Comment on above: TSH REFERENCE RANGE IS FOR AGE 10 AND OLDER. CHILDREN UNDER 1 YEAR OLD HAVE SIGNIFICANTLY HIGHER NORMAL RANGE, WHICH GRADUALLY DECREASES WITH AGE. PLEASE CONSULT THE PATHOLOGIST FOR SPECIFIC INFORMATION. [facility] VITAMIN B12on 08-29-2023 Cobalamin (Vitamin B12) [Mass/Vol] 436 pg/mL 239 - 931 pg/mL [facility] BASIC METABOLIC PANELon Anion gap [Moles/Vol] 24.5 mmol/L [facility] Comment on above: 7-16 Calcium [Mass/Vol] 8.6 mg/dL 8.4 - 10. 2 mg/dL [facility] Chloride [Moles/Vol] 104 mmol/L 100 - 1 10 mmol/L [facility] CO2 [Moles/Vol] 12.0 mmol/L Low [facility] Creatinine [Mass/Vol] 0.79 mg/dL Low 0.80 - 1.50 mg/dL [facility] GFR/1.73 sq M.predicted (S/P/Bld) [Vol rate/Area] 108 mL/min - PINF [facility] Comment on above: Reference Range: 59 to 44 - Mild to moderate loss of kidney function 44 to 30 - Moderate to Severe loss of kidney function 29 to 15 - Severe loss of kidney function <15 - Kidney failure The estimated GFR is based on the MDRD formula for assessment of stable or slowly declining kidney function in adults. Estimated GFR values are not accurate in: -Obese (BMI>34) OR underweight (BMI<20) people -The very old OR very young -Races other than or -T[place] -People with acute illnesses, amputations, or acute kidney failure. Estimated GFR should be interpreted in clinical context and an alternative method such as a timed urine collection for creatinine clearance used to verify questionable results. (Ref. National Kidney Foundation 2015) Glucose [Mass/Vol] 77 mg/dL 70 - 100 mg/dL [facility] Interpretation and review of laboratory results Abnormal [facility] Potassium [Moles/Vol] 3.7 mmol/L 3.5 - 5.0 mmol/L [facility] Sodium [Moles/Vol] 140 mmol/L 136 - 145 mmol/L [facility] Urea nitrogen/Creatinine [Mass ratio] 13 mg/dL 7 - 22 mg/dL [facility] CBC, EDIF, PLATELETon 2022 Basophils (Bld) [#/Vol] 0.11 10*3/uL 0.00 - 0.20 10*3/uL [facility] Basophils/100 WBC (Bld) 1.1 % 0.0 - 2.0 % [facility] Eosinophils (Bld) [#/Vol] 0.03 10*3/uL 0.00 - 0.50 10*3/uL [facility] Eosinophils/100 WBC (Bld) 0.3 % 0.0 - 4.0 % [facility] Erythrocyte distribution width (RBC) [Ratio] 12.3 % 11.5 - 14.5 % [facility] Hematocrit (Bld) [Volume fraction] 44.2 % 42.0 - 54.0 % [facility] Hemoglobin (Bld) [Mass/Vol] 15.3 g/dL 14.0 - 18.0 g/dL [facility] Interpretation and review of laboratory results Abnormal [facility] Lymphocytes (Bld) [#/Vol] 2.09 10*3/uL 1.00 - 4.80 10*3/uL [facility] MCH (RBC) [Entitic mass] 31.0 pg 25.6 - 32.2 pg [facility] MCHC (RBC) [Mass/Vol] 34.6 g/dL 32.0 - 36.0 g/dL [facility] MCV (RBC) [Entitic vol] 89.5 fL 82.0 - 98.0 fL [facility] Monocytes (Bld) [#/Vol] 0.43 10*3/uL 0.20 - 1.20 10*3/uL [facility] Monocytes/100 WBC (Bld) 4.5 % Low 5.0 - 12.0 % [facility] Neutrophils (Bld) [#/Vol] 6.89 10*3/uL 2.00 - 7.50 10*3/uL [facility] Nucleated RBC/100 WBC (Bld) [Ratio] 0.0 % [facility] Platelet mean volume (Bld) [Entitic vol] 9.3 fL Low 9.4 - 12.4 fL [facility] Platelets (Bld) [#/Vol] 175 10*3/uL 150 - 450 10*3/uL [facility] RBC (Bld) [#/Vol] 4.94 10*6/uL 4.20 - 5.6 0 10*6/uL [facility] RBC, NUCLEATED, ABSOLUTE 0.00 0.00 - 0.50 [facility] Segmented neutrophils/100 WBC (Bld) 71.8 % High 36.0 - 66.0 % [facility] Variant lymphocytes Auto Ql (Bld) 21.8 % Low 24.0 - 44.0 % [facility] WBC (Bld) [#/Vol] 9.60 10*3/uL 4.80 - 10. 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1970 Requested By: [id number] Order Number: [id number] Reading REENA Sutherland Measurements Intervals [place] Rate: 96 P: 40 SD: 150 QRS: -19 QRSD: 96 T: 71 QT: 368 QTc: 464 Interpretive Statements Normal sinus rhythm Electronically Signed On 04-30-2023 14:46:14 EDT by Moncho Sutherland Normal [facility] [place] Comment on above: Order Comment: Vet-n o [facility] Test Date: 2023-04-30 Pat Name: ANGELLA FERNANDEZ Department: Room: ED09 Gender: Male 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1970 Requested By: [id number] Order Number: [id number] Reading REENA Sutherland Measurements Intervals [place] Rate: 96 P: 40 SD: 150 QRS: -19 QRSD: 96 T: 71 QT: 368 QTc: 464 Interpretive Statements Normal sinus rhythm Electronically Signed On 04-30-2023 14:46:14 EDT by Moncho Sutherland RADIOLOGY Moncho Sutherland MD - 04/30/2023 [facility] Test Date: 2023-04-30 Pat Name: ANGELLA FERNANDEZ Department: Room: ED09 Gender: Male 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1970 Requested By: [id number] Order Number: [id number] Reading REENA Sutherland Measurements Intervals [place] Rate: 96 P: 40 SD: 150 QRS: -19 QRSD: 96 T: 71 QT: 368 QTc: 464 Interpretive Statements Normal sinus rhythm Electronically Signed On 04-30-2023 14:46:14 EDT by Moncho Sutherland [employer] Phone: [employer] Phone: MAGNESIUMon 04-30-2023 Magnesium [Mass/Vol] 1.9 mg/dL 1.7 - 2 .2 mg/dL [facility] [employer] No Panel Informationon 04-30 [facility] [employer] Portable XR Chest Viewson IMPRESSION: No radiographic finding to suggest acute cardiopulmonary process. RADIOLOGY CLINICAL INDICATION: chest pain EXAM DESCRIPTION: XR CHEST PORTABLE 04/30/2023 9:31 am COMPARISON: 09/09/2015 TECHNIQUE: FINDINGS: The cardiomediastinal silhouette and central vasculature are within normal limits. The lungs are normally aerated. There is no consolidation, effusion or pneumothorax. RADIOLOGY Moncho Montenegro MD - 04/30/2023 CLINICAL INDICATION: chest pain EXAM DESCRIPTION: XR CHEST PORTABLE 04/30/2023 9:31 am COMPARISON: 09/09/2015 TECHNIQUE: FINDINGS: The cardiomediastinal silhouette and central vasculature are within normal limits. The lungs are normally aerated. There is no consolidation, effusion or pneumothorax. IMPRESSION IMPRESSION: No radiographic finding to suggest acute cardiopulmonary process. [employer] Phone: Radiology Study observation (narrative) [employer] Phone: Portable XR Chest ViewsOrder ed By: Moncho Montenegro on 04-30-2023 [employer] Phone: TROPONINon 04-30-2023 Troponin I.cardiac [Mass/Vol] 0.020 ng/mL 0.012 - 0.120 ng/mL [facility] Comment on above: REFERENCE RANGE IS 0.012 - 0.120 ng/ml cTnI - The cutoff of 0.120 ng/ml is recommended for diagnosis of AMI, yielding optimal performance of 95% sensitivity and 93% specificity. [facility] Troponin I.cardiac [Mass/Vol] 0.019 ng/mL 0.012 - 0.120 ng/mL [facility] [employer] Comment on above: REFERENCE RANGE IS 0.012 - 0.120 ng/ml cTnI - The cutoff of 0.120 ng/ml is recommended for diagnosis of AMI, yielding optimal performance of 95% sensitivity and 93% specificity. [facility] XR CHEST PORTABLEon 04-30-20 XR CHEST PORTABLE CLINICAL INDICATION: chest pain EXAM DESCRIPTION: XR CHEST PORTABLE 04/30/2023 9:31 am COMPARISON: 09/09/2015 TECHNIQUE: FINDINGS: The cardiomediastinal silhouette and central vasculature are within normal limits. The lungs are normally aerated. There is no consolidation, effusion or pneumothorax. IMPRESSION: No radiographic finding to suggest acute cardiopulmonary process. Normal [facility] Comment on above: Order Comment: Vet-n o ETHYL ALCOHOL BLOODon 2021 ETHYL ALCOHOL BLOOD 0.05 % Normal 0.00 [facility] Comment on above: Performed By: #### C BCWD, EGFR1, HEPPA, ASAT, OSMOL, ACTM, BMP, ETOHS, ANION, TSH3 #### [facility] [address] [place] [address] Ethanolon 03-07-2022 ETHYL ALCOHOL, SERUM 0.05 % 0.00 [facility] Comment on above: Performed at [facility] [address] UA WITH MICROSCOPICon 2021 BACTERIA NONE SEEN Normal FEW/NONE SEEN [facility] Comment on above: Performed By: #### C BCWD, EGFR1, HEPPA, ASAT, OSMOL, ACTM, BMP, ETOHS, ANION, TSH3 #### [facility] [address] [place] [address] CASTS NONE SEEN Normal NONE SEEN [facility] Comment on above: Performed By: #### C BCWD, EGFR1, HEPPA, ASAT, OSMOL, ACTM, BMP, ETOHS, ANION, TSH3 #### [facility] [address] [place] [address] CASTS 2 NONE SEEN Normal NONE SEEN [facility] Comment on above: Performed By: #### C BCWD, EGFR1, HEPPA, ASAT, OSMOL, ACTM, BMP, ETOHS, ANION, TSH3 #### [facility] [address] [place] [address] Crystals LM Nom (Urine sed) NONE SEEN Normal NONE SEEN [facility] Comment on above: Performed By: #### C BCWD, EGFR1, HEPPA, ASAT, OSMOL, ACTM, BMP, ETOHS, ANION, TSH3 #### [place] [address] EPITHELIAL 0-2 Normal 3-5/hpf [facility] Comment on above: Performed By: #### C BCWD, EGFR1, HEPPA, ASAT, OSMOL, ACTM, BMP, ETOHS, ANION, TSH3 #### [place] [address] MISCELLANEOUS 2 NONE SEEN Normal [facility] Comment on above: Performed By: #### C BCWD, EGFR1, HEPPA, ASAT, OSMOL, ACTM, BMP, ETOHS, ANION, TSH3 #### [place] [address] RBC 0-2 Normal 0-2/hpf [facility] Comment on above: Performed By: #### C BCWD, EGFR1, HEPPA, ASAT, OSMOL, ACTM, BMP, ETOHS, ANION, TSH3 #### [place] [address] RENAL EPITHELIAL NONE SEEN Normal NONE SEEN [facility] Comment on above: Performed By: #### C BCWD, EGFR1, HEPPA, ASAT, OSMOL, ACTM, BMP, ETOHS, ANION, TSH3 #### [place] [address] WBC 0-2 Normal 0-4/hpf [facility] Comment on above: Performed By: #### C BCWD, EGFR1, HEPPA, ASAT, OSMOL, ACTM, BMP, ETOHS, ANION, TSH3 #### [address] [address] YEAST NONE SEEN Normal NONE SEEN [facility] Comment on above: Performed By: #### C BCWD, EGFR1, HEPPA, ASAT, OSMOL, ACTM, BMP, ETOHS, ANION, TSH3 #### [place] [address] Bilirubin Ql (U) Negative Normal NEGATIVE [facility] Comment on above: Performed By: #### C BCWD, EGFR1, HEPPA, ASAT, OSMOL, ACTM, BMP, ETOHS, ANION, TSH3 #### [facility] [address] [place] [address] CHARACTER CLEAR Normal CLEAR-SL CLOUD [facility] Comment on above: Performed By: #### C BCWD, EGFR1, HEPPA, ASAT, OSMOL, ACTM, BMP, ETOHS, ANION, TSH3 #### [facility] [address] [place] [address] Color (U) YELLOW Normal STRAW-YELLOW [facility] Comment on above: Performed By: #### C BCWD, EGFR1, HEPPA, ASAT, OSMOL, ACTM, BMP, ETOHS, ANION, TSH3 #### [facility] [address] [place] [address] Glucose Ql (U) Negative Normal NEGATIVE [facility] Comment on above: Performed By: #### C BCWD, EGFR1, HEPPA, ASAT, OSMOL, ACTM, BMP, ETOHS, ANION, TSH3 #### [facility] [address] [place] [address] Hemoglobin Ql (U) LARGE Abnormal NEGATIVE [facility] Comment on above: Performed By: #### C BCWD, EGFR1, HEPPA, ASAT, OSMOL, ACTM, BMP, ETOHS, ANION, TSH3 #### [facility] [address] [place] [address] LEUKOCYTES Negative Normal NEGATIVE [facility] Comment on above: Performed By: #### C BCWD, EGFR1, HEPPA, ASAT, OSMOL, ACTM, BMP, ETOHS, ANION, TSH3 #### [facility] [address] [place] [address] Nitrite Ql (U) Negative Normal NEGATIVE [facility] Comment on above: Performed By: #### C BCWD, EGFR1, HEPPA, ASAT, OSMOL, ACTM, BMP, ETOHS, ANION, TSH3 #### [facility] [address] [place] [address] pH (U) 5.5 [pH] Normal 5.0 - 9.0 [facility] Comment on above: Performed By: #### C BCWD, EGFR1, HEPPA, ASAT, OSMOL, ACTM, BMP, ETOHS, ANION, TSH3 #### [place] [address] Protein Ql (U) 300 Abnormal NEGATIVE [facility] Comment on above: Performed By: #### C BCWD, EGFR1, HEPPA, ASAT, OSMOL, ACTM, BMP, ETOHS, ANION, TSH3 #### [place] [address] Specific gravity (U) [Rel density] 1.016 Normal 1.002-1.030 [facility] Comment on above: Performed By: #### C BCWD, EGFR1, HEPPA, ASAT, OSMOL, ACTM, BMP, ETOHS, ANION, TSH3 #### [place] [address] Urobilinogen Qn (U) 0.2 {Adrian'U}/dL Normal 0.0 - 1. 0 [facility] Comment on above: Performed By: #### C BCWD, EGFR1, HEPPA, ASAT, OSMOL, ACTM, BMP, ETOHS, ANION, TSH3 #### [place] [address] ACETAMINOPHENon 03-06-2022 Acetaminophen [Mass/Vol] ug/mL Normal 0.0-20.0 [facility] Comment on above: Performed By: #### C BCWD, EGFR1, HEPPA, ASAT, OSMOL, ACTM, BMP, ETOHS, ANION, TSH3 #### [address] [address] ANION GAPon 03-06-2022 Anion gap [Moles/Vol] 24.0 mmol/L High 8.0-16.0 [facility] Comment on above: Result Comment: ANIO N GAP = Sodium -(Chloride + CO2) Performed By: #### C BCWD, EGFR1, HEPPA, ASAT, OSMOL, ACTM, BMP, ETOHS, ANION, TSH3 #### [address] [place] [address] Acetaminophen Levelon 2021 Acetaminophen Level < 5.0 0.0 - 20 .0 ug/mL [facility] Comment on above: Performed at [facility] ion [facility] [address] [place] [address] Anion Gapon 03-06-2022 Anion gap [Moles/Vol] 24.0 mmol/L High 8.0 - 16.0 meq/L [facility] Comment on above: ANION GAP = Sodium - (Chloride + CO2) Performed at [facility] [address] [place] [address] BASIC METABOL PANELon 2021 Calcium [Mass/Vol] 8.8 mg/dL Normal 8.5-10.5 [facility] Comment on above: Performed By: #### C BCWD, EGFR1, HEPPA, ASAT, OSMOL, ACTM, BMP, ETOHS, ANION, TSH3 #### [facility] [address] [address] Chloride [Moles/Vol] 97 mmol/L Low 98-111 [facility] Comment on above: Performed By: #### C BCWD, EGFR1, HEPPA, ASAT, OSMOL, ACTM, BMP, ETOHS, ANION, TSH3 #### [facility] [address] [place] [address] CO2 [Moles/Vol] 16 mmol/L Low 23-33 [facility] Comment on above: Performed By: #### C BCWD, EGFR1, HEPPA, ASAT, OSMOL, ACTM, BMP, ETOHS, ANION, TSH3 #### [facility] [address] [place] [address] Creatinine [Mass/Vol] 0.8 mg/dL Normal 0.4-1.[address] [facility] Comment on above: Performed By: #### C BCWD, EGFR1, HEPPA, ASAT, OSMOL, ACTM, BMP, ETOHS, ANION, TSH3 #### [facility] [email or web address] [address] [place] [address] Glucose [Mass/Vol] 152 mg/dL High 70-108 [facility] Comment on above: Performed By: #### C BCWD, EGFR1, HEPPA, ASAT, OSMOL, ACTM, BMP, ETOHS, ANION, TSH3 #### [facility] [address] [place] [address] Potassium [Moles/Vol] 3.3 mmol/L Low 3.5-5.[address] [facility] Comment on above: Performed By: #### C BCWD, EGFR1, HEPPA, ASAT, OSMOL, ACTM, BMP, ETOHS, ANION, TSH3 #### [facility] [address] [place] [address] Sodium [Moles/Vol] 137 mmol/L Normal 135-145 [facility] Comment on above: Performed By: #### C BCWD, EGFR1, HEPPA, ASAT, OSMOL, ACTM, BMP, ETOHS, ANION, TSH3 #### [address] [address] Urea nitrogen [Mass/Vol] 16 mg/dL Normal 7-22 [facility] Comment on above: Performed By: #### C BCWD, EGFR1, HEPPA, ASAT, OSMOL, ACTM, BMP, ETOHS, ANION, TSH3 #### [address] [address] Basic Metabolic Panelon 06-0 Calcium [Mass/Vol] 8.8 mg/dL 8.5 - 10. 5 mg/dL [facility] [employer] Comment on above: Performed at [facility] ion [facility] [address] [place] [address] Chloride [Moles/Vol] 97 mmol/L Low 98 - 11 1 meq/L [facility] [employer] CO2 [Moles/Vol] 16 mmol/L Low 23 - 33 meq/L [facility] [employer] Creatinine [Mass/Vol] 0.8 mg/dL 0.4 - 1.2 mg/dL [facility] [employer] Glucose [Mass/Vol] 152 mg/dL High 70 - 108 mg/dL [facility] [employer] Potassium [Moles/Vol] 3.3 mmol/L Low 3.5 - 5.2 meq/L [facility] Sodium [Moles/Vol] 137 mmol/L 135 - 145 meq/L [facility] Urea nitrogen (BldV) [Mass/Vol] 16 mg/dL 7 - 22 mg/dL [facility] CALCULATED OSMOLALITYon Osmolality [Osmolality] 278.0 mosm/kg Normal 275.0-300.0 [facility] Comment on above: Performed By: #### C BCWD, EGFR1, HEPPA, ASAT, OSMOL, ACTM, BMP, ETOHS, ANION, TSH3 #### [place] [address] CBC WITH DIFFERENTIALon ABS BASOPHILS 0.1 thou/mm3 Normal 0.0-0.1 [facility] Comment on above: Performed By: #### C BCWD, EGFR1, HEPPA, ASAT, OSMOL, ACTM, BMP, ETOHS, ANION, TSH3 #### [place] [address] ABS EOSINOPHILS 0.1 thou/mm3 Normal 0.0-0.4 [facility] Comment on above: Performed By: #### C BCWD, EGFR1, HEPPA, ASAT, OSMOL, ACTM, BMP, ETOHS, ANION, TSH3 #### [place] [address] ABS IMMATURE GRANS (IG) 0.04 thou/mm3 Normal 0.00-0.07 [facility] Comment on above: Performed By: #### C BCWD, EGFR1, HEPPA, ASAT, OSMOL, ACTM, BMP, ETOHS, ANION, TSH3 #### [place] [address] ABS LYMPHOCYTES 3.7 thou/mm3 Normal 1.0-4.8 [facility] Comment on above: Performed By: #### C BCWD, EGFR1, HEPPA, ASAT, OSMOL, ACTM, BMP, ETOHS, ANION, TSH3 #### [place] [address] ABS MONOCYTES 0.9 thou/mm3 Normal 0.4-1.3 [facility] Comment on above: Performed By: #### C BCWD, EGFR1, HEPPA, ASAT, OSMOL, ACTM, BMP, ETOHS, ANION, TSH3 #### [address] [address] ABS NEUTROPHILS 7.3 thou/mm3 Normal 1.8-7.7 [facility] Comment on above: Performed By: #### C BCWD, EGFR1, HEPPA, ASAT, OSMOL, ACTM, BMP, ETOHS, ANION, TSH3 #### [address] [address] Basophils/100 WBC (Bld) 1.1 % Normal [facility] Comment on above: Performed By: #### C BCWD, EGFR1, HEPPA, ASAT, OSMOL, ACTM, BMP, ETOHS, ANION, TSH3 #### [address] [address] Eosinophils/100 WBC (Bld) 0.7 % Normal [facility] Comment on above: Performed By: #### C BCWD, EGFR1, HEPPA, ASAT, OSMOL, ACTM, BMP, ETOHS, ANION, TSH3 #### [place] [address] Erythrocyte distribution width (RBC) [Ratio] 13.4 % Normal 11.5-14.5 [facility] Comment on above: Performed By: #### C BCWD, EGFR1, HEPPA, ASAT, OSMOL, ACTM, BMP, ETOHS, ANION, TSH3 #### [place] [address] Hematocrit (Bld) [Volume fraction] 44.5 % Normal 42.0-52.0 [facility] Comment on above: Performed By: #### C BCWD, EGFR1, HEPPA, ASAT, OSMOL, ACTM, BMP, ETOHS, ANION, TSH3 #### [place] [address] Hemoglobin (Bld) [Mass/Vol] 15.7 g/dL Normal 14.0-18.0 [facility] Comment on above: Performed By: #### C BCWD, EGFR1, HEPPA, ASAT, OSMOL, ACTM, BMP, ETOHS, ANION, TSH3 #### [address] [address] IMMATURE GRANS (IG) 0.3 % Normal [facility] Comment on above: Performed By: #### C BCWD, EGFR1, HEPPA, ASAT, OSMOL, ACTM, BMP, ETOHS, ANION, TSH3 #### [address] [address] Lymphocytes/100 WBC (Bld) 30.3 % Normal [facility] Comment on above: Performed By: #### C BCWD, EGFR1, HEPPA, ASAT, OSMOL, ACTM, BMP, ETOHS, ANION, TSH3 #### [place] [address] MCH (RBC) [Entitic mass] 32.4 pg Normal 26.0-33.0 [facility] Comment on above: Performed By: #### C BCWD, EGFR1, HEPPA, ASAT, OSMOL, ACTM, BMP, ETOHS, ANION, TSH3 #### [place] [address] MCHC (RBC) [Mass/Vol] 35.3 g/dL Normal 32.2-35.[address] [facility] Comment on above: Performed By: #### C BCWD, EGFR1, HEPPA, ASAT, OSMOL, ACTM, BMP, ETOHS, ANION, TSH3 #### [place] [address] MCV (RBC) [Entitic vol] 91.9 fL Normal 80.0-94.0 [facility] Comment on above: Performed By: #### C BCWD, EGFR1, HEPPA, ASAT, OSMOL, ACTM, BMP, ETOHS, ANION, TSH3 #### [place] [address] Monocytes/100 WBC (Bld) 7.3 % Normal [facility] Comment on above: Performed By: #### C BCWD, EGFR1, HEPPA, ASAT, OSMOL, ACTM, BMP, ETOHS, ANION, TSH3 #### [address] [address] Neutrophils/100 WBC (Bld) 60.3 % Normal [facility] Comment on above: Performed By: #### C BCWD, EGFR1, HEPPA, ASAT, OSMOL, ACTM, BMP, ETOHS, ANION, TSH3 #### [address] [address] NRBC 0 /100 wbc Normal [facility] Comment on above: Performed By: #### C BCWD, EGFR1, HEPPA, ASAT, OSMOL, ACTM, BMP, ETOHS, ANION, TSH3 #### [address] [address] PLATELET 328 thou/mm3 Normal 130-400 [facility] Comment on above: Performed By: #### C BCWD, EGFR1, HEPPA, ASAT, OSMOL, ACTM, BMP, ETOHS, ANION, TSH3 #### [place] [address] Platelet mean volume (Bld) [Entitic vol] 8.5 fL Low 9.4-12.4 [facility] Comment on above: Performed By: #### C BCWD, EGFR1, HEPPA, ASAT, OSMOL, ACTM, BMP, ETOHS, ANION, TSH3 #### [place] [address] RBC 4.84 mill/mm3 Normal 4.70-6.10 [facility] Comment on above: Performed By: #### C BCWD, EGFR1, HEPPA, ASAT, OSMOL, ACTM, BMP, ETOHS, ANION, TSH3 #### [address] [address] RDW-SD 45.3 fL High 35.0-45.0 [facility] Comment on above: Performed By: #### C BCWD, EGFR1, HEPPA, ASAT, OSMOL, ACTM, BMP, ETOHS, ANION, TSH3 #### [address] [address] WBC 12.1 thou/mm3 High 4.8-10.8 [facility] Comment on above: Performed By: #### C BCWD, EGFR1, HEPPA, ASAT, OSMOL, ACTM, BMP, ETOHS, ANION, TSH3 #### [facility] [address] [place] [address] CBC with Auto Differentialon 03-06-2022 Basophils (Bld) [#/Vol] 0.1 10*3/uL [facility] Basophils/100 WBC (Bld) 1.1 % [facility] Eosinophils Absolute 0.1 [facility] Eosinophils/100 WBC (Bld) 0.7 % [facility] Erythrocyte distribution width (RBC) [Ratio] 13.4 % 11.5 - 14.5 % [facility] Erythrocyte distribution width (RBC) [Ratio] 45.3 fL High 35.0 - 45.0 fL [facility] Hematocrit (Bld) [Volume fraction] 44.5 % 42.0 - 52.0 % [facility] Hemoglobin (Bld) [Mass/Vol] 15.7 g/dL [facility] Immature Grans (Abs) 0.04 [facility] Immature granulocytes/100 WBC (Bld) 0.3 % [facility] Interpretation and review of laboratory results Abnormal [facility] Lymphocytes Absolute 3.7 [facility] Lymphocytes/100 WBC (Bld) 30.3 % [facility] MCH (RBC) [Entitic mass] 32.4 pg 26.0 - 33.0 pg [facility] MCHC (RBC) [Mass/Vol] 35.3 g/dL [facility] MCV (RBC) [Entitic vol] 91.9 fL 80.0 - 94.0 fL [facility] Monocytes Absolute 0.9 [facility] Monocytes/100 WBC (Bld) 7.3 % [facility] nRBC 0 /100 wbc [facility] Comment on above: Performed at [facility] [address] [place] [address] Platelet mean volume (Bld) [Entitic vol] 8.5 fL Low 9.4 - 12.4 fL [facility] Platelets (Bld) [#/Vol] 328 10*3/uL [facility] RBC (Bld) [#/Vol] 4.84 10*6/uL [facility] Segmented neutrophils/100 WBC (Bld) 60.3 % [facility] Segs Absolute 7.3 [facility] WBC (Bld) [#/Vol] 12.1 10*3/uL High [facility] DRUG ABUSE SCREENon 03-06-20 22 AMPHETAMINE/METHAMPH Negative Normal NEGATIVE [facility] Comment on above: Performed By: #### C BCWD, EGFR1, HEPPA, ASAT, OSMOL, ACTM, BMP, ETOHS, ANION, TSH3 #### [facility] [address] [place] [address] BARBITURATE Negative Normal NEGATIVE [facility] Comment on above: Performed By: #### C BCWD, EGFR1, HEPPA, ASAT, OSMOL, ACTM, BMP, ETOHS, ANION, TSH3 #### [place] [address] Benzodiazepines Ql (U) Negative Normal NEGATIVE [facility] Comment on above: Performed By: #### C BCWD, EGFR1, HEPPA, ASAT, OSMOL, ACTM, BMP, ETOHS, ANION, TSH3 #### [facility] [address] [place] [address] Cannabinoids Screen Ql (U) Negative Normal NEGATIVE [facility] Comment on above: Performed By: #### C BCWD, EGFR1, HEPPA, ASAT, OSMOL, ACTM, BMP, ETOHS, ANION, TSH3 #### [place] [address] COCAINE METABOLITE Negative Normal NEGATIVE [facility] Comment on above: Performed By: #### C BCWD, EGFR1, HEPPA, ASAT, OSMOL, ACTM, BMP, ETOHS, ANION, TSH3 #### [place] [address] Opiates Ql (U) Negative Normal NEGATIVE [facility] Comment on above: Performed By: #### C BCWD, EGFR1, HEPPA, ASAT, OSMOL, ACTM, BMP, ETOHS, ANION, TSH3 #### [facility] [address] [place] [address] OXYCODONE Negative Normal NEGATIVE [facility] Comment on above: Performed By: #### C BCWD, EGFR1, HEPPA, ASAT, OSMOL, ACTM, BMP, ETOHS, ANION, TSH3 #### [facility] [address] [place] [address] Phencyclidine Ql (U) Negative Normal NEGATIVE [facility] Comment on above: Result Comment: A N egative result for a drug abuse screen test indicates that the drug concentration is below the following cutoffs: Amphetamine/Methamphetamine 1000 ng/ml Barbiturate 200 ng/ml Benzodiazapine 200 ng/ml Cannabinoids 50 ng/ml Cocaine Metabolite 300 ng/ml Opiates 300 ng/ml Oxycodone 100 ng/ml Phencyclidine 25 ng/ml A Positive result for a drug abuse screen test should be considered presumptive positive until/unless confirmed by another method. (Additional request) Quantitative values from a reference laboratory are available upon additional request. These results are for medical use only. Performed By: #### C BCWD, EGFR1, HEPPA, ASAT, OSMOL, ACTM, BMP, ETOHS, ANION, TSH3 #### [facility] [address] [place] [address] EKG 12-LEADon 03-06-2022 EKG 12-LEAD 105 105 154 [phone] 47 -4 -157 Sinus tachycardia Nonspecific T wave abnormality Abnormal ECG When compared with ECG of 27-NOV-2019 14:59, No significant change was found Confirmed by BECCA BEAULIEU ([id number]) on 03/07/2022 10:21:47 PM [email or web address]=05-04-2022&Ti [email or web address]& TestType=ECG&Site=3&O utputType=PDF&Ext=PDF Normal [facility] ETHYL ALCOHOL BLOODon 2021 ETHYL ALCOHOL BLOOD 0.40 % Normal 0.00 [facility] Comment on above: Performed By: #### C BCWD, EGFR1, HEPPA, ASAT, OSMOL, ACTM, BMP, ETOHS, ANION, TSH3 #### [facility] [email or web address] [address] [place] [address] Ethanolon 03-06-2022 ETHYL ALCOHOL, SERUM 0.4 % 0.00 [facility] Comment on above: Performed at [facility] [address] [place] [address] GFR, ESTIMATEDon 03-06-2022 GFR/1.73 sq M.predicted MDRD (S/P/Bld) [Vol rate/Area] mL/min/{1.73_m2} Normal [facility] Comment on above: Result Comment: Stag e Description GFR, ml/min/1.73 m2 - At increased risk > or = 60 (with chronic kidney disease risk factors) 1 Normal or increased GFR > or = 90 2 Mildly or decreased GFR 60 - 89 3 Moderately decreased GFR 30 - 59 4 Severely decreased GFR 15 - 29 5 Kidney failure <15 (or dialysis) Estimated GFR calculated using abbreviated MDRD formula as recommended by [employer]. Calculation based upon serum creatinine and adjusted for age, gender & race. Dipika. Internal Med., Vol. 139 (2) pg 137-147. Performed By: #### C BCWD, EGFR1, HEPPA, ASAT, OSMOL, ACTM, BMP, ETOHS, ANION, TSH3 #### [facility] [address] [place] [address] Glomerular Filtration Rate, Estimatedon 03-06-2022 GFR/1.73 sq M.predicted MDRD (S/P/Bld) [Vol rate/Area] mL/min/{1.73_m2} ml/min/1.73m2 [facility] Comment on above: Stage Description GF R, ml/min/1.73 m2 - At increased risk > or = 60 (with chronic kidney disease risk factors) 1 Normal or increased GFR > or = 90 2 Mildly or decreased GFR 60 - 89 3 Moderately decreased GFR 30 - 59 4 Severely decreased GFR 15 - 29 5 Kidney failure <15 (or dialysis) Estimated GFR calculated using abbreviated MDRD formula as recommended by [employer]. Calculation based upon serum creatinine and adjusted for age, gender & race. Dipika. Internal Med., Vol. 139 (2) pg 137-147. [place] [address] HEPATIC FUNCTION PANELon Albumin [Mass/Vol] 4.6 g/dL Normal 3.5-5.1 [facility] Comment on above: Performed By: #### C BCWD, EGFR1, HEPPA, ASAT, OSMOL, ACTM, BMP, ETOHS, ANION, TSH3 #### [address] [address] ALP [Catalytic activity/Vol] 101 U/L Normal 38-126 [facility] Comment on above: Performed By: #### C BCWD, EGFR1, HEPPA, ASAT, OSMOL, ACTM, BMP, ETOHS, ANION, TSH3 #### [place] [address] ALT [Catalytic activity/Vol] 40 U/L Normal 11-66 [facility] Comment on above: Performed By: #### C BCWD, EGFR1, HEPPA, ASAT, OSMOL, ACTM, BMP, ETOHS, ANION, TSH3 #### [address] [address] AST [Catalytic activity/Vol] 77 U/L High 5-40 [facility] Comment on above: Performed By: #### C BCWD, EGFR1, HEPPA, ASAT, OSMOL, ACTM, BMP, ETOHS, ANION, TSH3 #### [address] [address] Bilirubin [Mass/Vol] 1.4 mg/dL High 0.3-1.2 [facility] Comment on above: Performed By: #### C BCWD, EGFR1, HEPPA, ASAT, OSMOL, ACTM, BMP, ETOHS, ANION, TSH3 #### [address] [address] Bilirubin.direct [Mass/Vol] 0.3 mg/dL Normal 0.0-0.3 [facility] Comment on above: Performed By: #### C BCWD, EGFR1, HEPPA, ASAT, OSMOL, ACTM, BMP, ETOHS, ANION, TSH3 #### [facility] [address] [place] [address] Protein [Mass/Vol] 7.4 g/dL Normal 6.1-8.0 [facility] Comment on above: Performed By: #### C BCWD, EGFR1, HEPPA, ASAT, OSMOL, ACTM, BMP, ETOHS, ANION, TSH3 #### [facility] [address] [place] [address] Hepatic Function Panelon Albumin [Mass/Vol] 4.6 g/dL 3.5 - 5.1 g/dL [facility] ALP (Bld) [Catalytic activity/Vol] 101 U/L 38 - 126 U/L [facility] ALT [Catalytic activity/Vol] 40 U/L 11 - 66 U/L [facility] AST [Catalytic activity/Vol] 77 U/L High 5 - 40 U/L [facility] Bilirubin [Mass/Vol] 1.4 mg/dL High 0.3 - 1 .2 mg/dL [facility] Bilirubin.indirect [Mass/Vol] 0.3 mg/dL 0.0 - 0.3 mg/dL [facility] Free PSA/Total PSA [Mass fraction] 7.4 g/dL 6.1 - 8.0 g/dL [facility] Comment on above: Performed at [facility] [address] [place] [address] No Panel Informationon 03-06 Interpretation and review of laboratory results Abnormal [facility] Osmolalityon 03-06-2022 Osmolality Calc 278.0 [facility] Comment on above: Performed at [facility] [address] [place] [id number] SALICYLATEon 03-06-2022 SALICYLATE < 0.3 Low 2.0-10.0 [facility] Comment on above: Performed By: #### C BCWD, EGFR1, HEPPA, ASAT, OSMOL, ACTM, BMP, ETOHS, ANION, TSH3 #### [facility] [address] [place] [address] Salicylateon 03-06-2022 Salicylate, Serum < 0.3 Low 2.0 - 10.0 mg/dL [facility] Comment on above: Performed at [facility] [address] [place] [address] TSHon 03-06-2022 TSH Qn 1.690 m[IU]/L [facility] Comment on above: Performed at [facility] [address] [place] [address] TSH THIRD GENERATIONon 03-06 TSH THIRD GENERATION 1.690 uIU/mL Normal 0.400-4.200 [facility] Comment on above: Performed By: #### C BCWD, EGFR1, HEPPA, ASAT, OSMOL, ACTM, BMP, ETOHS, ANION, TSH3 #### [facility] [address] [place] [address] UA WITH MICROSCOPICon 2021 Ketones Ql (U) 15 Abnormal NEGATIVE [facility] Comment on above: Performed By: #### C BCWD, EGFR1, HEPPA, ASAT, OSMOL, ACTM, BMP, ETOHS, ANION, TSH3 #### [facility] [address] [place] [address] Urine Drug Screenon 03-06-20 22 AMPHETAMINE+METHAMPHET AMINE URINE SCREEN Negative NEGATIVE [facility] Barbiturate Quant, Ur Negative NEGATIVE [facility] Benzodiazepine Quant, Ur Negative NEGATIVE [facility] Cannabinoid Quant, Ur Negative NEGATIVE [facility] Cocaine Metab Quant, Ur Negative NEGATIVE [facility] Opiates, Urine Negative NEGATIVE [facility] Oxycodone Negative NEGATIVE [facility] PCP Quant, Ur Negative NEGATIVE [facility] Comment on above: A Negative result for a drug abuse screen test indicates that the drug concentration is below the following cutoffs: Amphetamine/Methamphetamine 1000 ng/ml Barbiturate 200 ng/ml Benzodiazapine 200 ng/ml Cannabinoids 50 ng/ml Cocaine Metabolite 300 ng/ml Opiates 300 ng/ml Oxycodone 100 ng/ml Phencyclidine 25 ng/ml A Positive result for a drug abuse screen test should be considered presumptive positive until/unless confirmed by another method. (Additional request) Quantitative values from a reference laboratory are available upon additional request. These results are for medical use only. Performed at [facility] [address] [place] [address] [facility] Urine with Reflexed Microon 03-06-2022 Bacteria, UA NONE SEEN FEW/NONE SEEN /hpf [facility] Bilirubin Urine Negative NEGATIVE [facility] Blood, Urine LARGE Abnormal NEGATIVE [facility] CASTS 2 NONE SEEN NONE SEEN /lpf [facility] Casts UA NONE SEEN NONE SEEN /lpf [facility] Character, Urine CLEAR CLEAR-SL CLOUD [facility] Color, UA YELLOW STRAW-YELLOW [facility] Crystals, UA NONE SEEN NONE SEEN [facility] Epithelial Cells, UA 0-2 3-5/hpf /hpf [facility] Glucose, Ur Negative NEGATIVE mg/dl [facility] Interpretation and review of laboratory results Abnormal [facility] Leukocyte esterase Test strip Ql (U) Negative NEGATIVE [facility] MISCELLANEOUS 2 NONE SEEN [facility] Comment on above: Performed at [facility] [address] [place] [address] Nitrite, Urine Negative NEGATIVE [facility] pH, UA 5.5 [facility] Protein, UA 300 Abnormal NEGATIVE [facility] RBC, UA 0-2 0-2/hpf /hpf [facility] Renal Epithelial, UA NONE SEEN NONE SEEN [facility] Specific [place], Urine 1.016 [facility] Urobilinogen, Urine 0.2 [facility] WBC, UA 0-2 0-4/hpf /hpf [facility] Yeast, UA NONE SEEN NONE SEEN [facility] ALCOHOL MEDICALon 04-24-2020 ALCOHOL MEDICAL 324 mg/dL Critically high <10 [facility] Comment on above: Order Comment: RAISSA Davis ER 04/24/2020, 18:11, , Result called to Dr. Wagner in ER - [facility] Result Comment: Effe ctive 12-19-08 new methodology and new instrumentation: lower reportable range is 10 mg/dl. [place] legal limit of intoxication is 80 mg/dl or 0.08 g/dl. [facility] REPORTS OUT IN MG/DL Performed By: #### E TO #### [address] [address] [facility] 0 HR DRAWon 04-24-2020 Troponin I.cardiac [Mass/Vol] ng/mL Normal 0.012-0.120 [facility] Comment on above: Result Comment: RE FERENCE RANGE IS 0.012 - 0.120 ng/ml cTnI - The cutoff of 0.120 ng/ml is recommended for diagnosis of AMI, yielding optimal performance of 95% sensitivity and 93% specificity. Performed By: #### C TP0 #### [place] [address] CARP1 3 HR DRAWon 04-24-2020 Troponin I.cardiac [Mass/Vol] ng/mL Normal 0.012-0.120 [facility] Comment on above: Result Comment: RE FERENCE RANGE IS 0.012 - 0.120 ng/ml cTnI - The cutoff of 0.120 ng/ml is recommended for diagnosis of AMI, yielding optimal performance of 95% sensitivity and 93% specificity. Performed By: #### M AG #### [place] [address] CBC WITH DIFFERENTIALon 03-30 Basophils (Bld) [#/Vol] 0.09 10*3/uL Normal 0.00-0.20 [facility] Comment on above: Performed By: #### C BCD #### [place] [id number] Basophils/100 WBC (Bld) 1.4 % Normal 0.0-2.0 [facility] Comment on above: Performed By: #### C BCD #### [place] [id number] Eosinophils (Bld) [#/Vol] 0.09 10*3/uL Normal 0.00-0.50 [facility] Comment on above: Performed By: #### C BCD #### [address] [address] Eosinophils/100 WBC (Bld) 1.4 % Normal 0.0-4.0 [facility] Comment on above: Performed By: #### C BCD #### [address] [address] Erythrocyte distribution width (RBC) [Ratio] 11.9 % Normal 11.5-14.5 [facility] Comment on above: Performed By: #### C BCD #### [address] [address] Hematocrit (Bld) [Volume fraction] 45.1 % Normal 42.0-54.0 [facility] Comment on above: Performed By: #### C BCD #### [address] [address] Hemoglobin (Bld) [Mass/Vol] 15.9 g/dL Normal 14.0-18.0 [facility] Comment on above: Performed By: #### C BCD #### [address] [address] Lymphocytes (Bld) [#/Vol] 2.18 10*3/uL Normal 1.00-4.80 [facility] Comment on above: Performed By: #### C BCD #### [address] [address] Lymphocytes/100 WBC (Bld) 34.5 % Normal 24.0-44.0 [facility] Comment on above: Performed By: #### C BCD #### [address] [address] MCH (RBC) [Entitic mass] 33.3 pg High 25.6-32.2 [facility] Comment on above: Performed By: #### C BCD #### [address] [address] MCHC (RBC) [Mass/Vol] 35.3 g/dL Normal 32.0-36.0 [facility] Comment on above: Performed By: #### C BCD #### [address] [address] MCV (RBC) [Entitic vol] 94.5 fL Normal 82.0-98.0 [facility] Comment on above: Performed By: #### C BCD #### [address] [address] Monocytes (Bld) [#/Vol] 0.48 10*3/uL Normal 0.20-1.20 [facility] Comment on above: Performed By: #### C BCD #### [address] [address] Monocytes/100 WBC (Bld) 7.6 % Normal 5.0-12.0 [facility] Comment on above: Performed By: #### C BCD #### [address] [address] Neutrophils (Bld) [#/Vol] 3.46 10*3/uL Normal 2.00-7.50 [facility] Comment on above: Performed By: #### C BCD #### [address] [address] Neutrophils/100 WBC (Bld) 54.8 % Normal 36.0-66.0 [facility] Comment on above: Performed By: #### C BCD #### [address] [address] NRBC COUNT 0.00 Normal 0.00-0.50 [facility] Comment on above: Performed By: #### C BCD #### [address] [address] Nucleated RBC/100 WBC (Bld) [Ratio] 0.0 % Normal [facility] Comment on above: Performed By: #### C BCD #### [address] [address] Platelet mean volume (Bld) [Entitic vol] 8.7 fL Low 9.4-12.4 [facility] Comment on above: Performed By: #### C BCD #### [address] [address] Platelets (Bld) [#/Vol] 213 10*3/uL Normal 150-400 [facility] Comment on above: Performed By: #### C BCD #### [address] [address] RBC (Bld) [#/Vol] 4.77 10*6/uL Normal 4.20-5.60 [facility] Comment on above: Performed By: #### C BCD #### [address] [address] WBC (Bld) [#/Vol] 6.32 10*3/uL Normal 4.80-10.80 [facility] Comment on above: Performed By: #### C BCD #### [address] [address] COMPREHENSIVE METABOLIC PANE [place] 04-24-2020 ALK PHOS 81 U/L Normal 38-126 [facility] Comment on above: Performed By: #### M ODP #### [address] [address] ALT [Catalytic activity/Vol] 58 U/L Normal 21-72 [facility] Comment on above: Performed By: #### M ODP #### [address] [address] AST [Catalytic activity/Vol] 84 U/L High 17-59 [facility] Comment on above: Performed By: #### M ODP #### [address] [address] Calcium [Mass/Vol] 8.6 mg/dL Normal 8.4-10.2 [facility] [place] [place] Comment on above: Performed By: #### M ODP #### [address] [address] Glucose [Mass/Vol] 85 mg/dL Normal 70-100 [facility] [place] [place] Comment on above: Performed By: #### M ODP #### [address] [address] Protein [Mass/Vol] 7.3 g/dL Normal 6.0-8.2 [facility] [place] [place] Comment on above: Performed By: #### M ODP #### [address] [address] Urea nitrogen [Mass/Vol] 9 mg/dL Normal 7-22 [facility] Comment on above: Performed By: #### M ODP #### [address] [address] Anion gap [Moles/Vol] 15.9 mmol/L Normal 10-14 [facility] Comment on above: Performed By: #### M ODP #### [address] [address] Bilirubin Ql (U) 2.4 mg/dL High 0.2-1.2 [facility] Comment on above: Performed By: #### M ODP #### [address] [address] CO2 [Moles/Vol] 18.0 mm/Hg Low 22.0-30.0 [facility] Comment on above: Performed By: #### M ODP #### [address] [address] Creatinine [Mass/Vol] 0.70 mg/dL Low 0.80-1.50 [facility] Comment on above: Performed By: #### M ODP #### [address] [address] GFR/1.73 sq M predicted among non-blacks MDRD (S/P/Bld) [Vol rate/Area] 126 mL/min/1.73 m2 Normal >60 [facility] Comment on above: Result Comment: Refe rence Range: 59 to 44 - Mild to moderate loss of kidney function 44 to 30 - Moderate to Severe loss of kidney function 29 to 15 - Severe loss of kidney function <15 - Kidney failure The estimated GFR is based on the MDRD formula for assessment of stable or slowly declining kidney function in adults. Estimated GFR values are not accurate in: -Obese (BMI>34) OR underweight (BMI<20) people -The very old OR very young -Races other than or -[place] -People with acute illnesses, amputations, or acute kidney failure. Estimated GFR should be interpreted in clinical context and an alternative method such as a timed urine collection for creatinine clearance used to verify questionable results. (Ref. [employer] 2015) Performed By: #### M ODP #### [address] [address] Albumin [Mass/Vol] 4.2 g/dL Normal 3.5-5.0 [facility] [place] [place] Comment on above: Performed By: #### M ODP #### [address] [address] Chloride [Moles/Vol] 110 mmol/L Normal 100-110 [facility] Comment on above: Performed By: #### M ODP #### [address] [address] Potassium [Moles/Vol] 3.5 mmol/L Normal 3.5-5.0 [facility] Comment on above: Performed By: #### M ODP #### [address] [address] Sodium [Moles/Vol] 143 mmol/L Normal 136-145 [facility] [place] [place] Comment on above: Performed By: #### M ODP #### [place] [address] CT-ABDOMEN & PELVIS WITH CON TRAST (NO CONT CHG)on 04-24-2020 CT-ABDOMEN & PELVIS WITH CONTRAST (NO CONT CHG) CLINICAL INDICATION: Left upper quadrant pain; Left sided chest pain EXAM DESCRIPTION: CT-ABDOMEN & PELVIS WITH CONTRAST (NO CONT CHG); CT-CHEST WITH CONTRAST 04/24/2020 5:20 pm COMPARISON: No comparison studies TECHNIQUE: Contiguous axial imaging was performed through the chest, abdomen and pelvis after the uncomplicated intravenous administration of 75mL of Isovue 370 contrast. Coronal and sagittal reformatted images were created and reviewed. Dose modulation techniques were employed including automated exposure control, adjustment of mA and kV according to patient size and the use of iterative reconstruction. FINDINGS: CHEST: The heart is normal in size without pericardial effusion. Thoracic aorta is normal in course and caliber. There is no aneurysm or dissection. There is no mediastinal fluid collection. Pulmonary artery's appear normal in caliber. Coronary arterial calcifications are suggested. Cardiac motion artifact obscures fine detail. There is no definitive pathologic mediastinal, hilar or axillary adenopathy. Partially visualized thyroid is unremarkable. Central airways are widely patent. There is mild bibasilar atelectasis, right greater than left. There is no confluent alveolar consolidation, effusion or pneumothorax. ABDOMEN/PELVIS: There is a small hiatal hernia and distal esophageal wall thickening. There is diffuse low attenuation throughout the liver suggesting hepatic steatosis. The gallbladder is mildly distended. Otherwise spleen, pancreas and adrenal glands are within normal limits. Subtle splenic cleft is suggested. The abdominal aorta is normal in course and caliber. The kidneys are normal in size and attenuation bilaterally. Right renal cyst is noted. There is no evidence for urolithiasis. There is no hydronephrosis or perinephric fluid collection. The visualized urinary bladder is unremarkable. The small bowel is normal in course and caliber with no evidence for obstruction, wall thickening or pneumatosis intestinalis. The appendix is normal. There is a moderate to large colonic stool. Sigmoid colonic diverticulosis is evident. There is no pericolonic inflammation. There is no ascites or pneumoperitoneum. There is subtle cortical regularity involving the posterior margin of the left 11th, 10th and 9th ribs suggesting nondisplaced fractures. Additional anterior wedge deformity is noted at the L1 level suggesting age indeterminate compression fracture. There is less than 20% height loss. Prominent Schmorl's nodes are noted throughout the thoracolumbar vertebral bodies are and likely reflect degenerative height loss and less likely traumatic height loss. There is no retropulsion of vertebral bodies. IMPRESSION: 1. Nondisplaced fractures involving the left 9th through 11th ribs. Age indeterminate compression deformity is noted involving the L1 vertebral body as described. 2. No definitive traumatic solid organ or vascular injury. 3. Additional findings as described. Read By: LAN HOWARD, MONCHO Ellis [facility] Comment on above: Order Comment: Fall [address]-CHEST WITH CONTRASTon CT-CHEST WITH CONTRAST CLINICAL INDICATI ON: Left upper quadrant pain; Left sided chest pain EXAM DESCRIPTION: CT-ABDOMEN & PELVIS WITH CONTRAST (NO CONT CHG); CT-CHEST WITH CONTRAST 04/24/2020 5:20 pm COMPARISON: No comparison studies TECHNIQUE: Contiguous axial imaging was performed through the chest, abdomen and pelvis after the uncomplicated intravenous administration of 75mL of Isovue 370 contrast. Coronal and sagittal reformatted images were created and reviewed. Dose modulation techniques were employed including automated exposure control, adjustment of mA and kV according to patient size and the use of iterative reconstruction. FINDINGS: CHEST: The heart is normal in size without pericardial effusion. Thoracic aorta is normal in course and caliber. There is no aneurysm or dissection. There is no mediastinal fluid collection. Pulmonary artery's appear normal in caliber. Coronary arterial calcifications are suggested. Cardiac motion artifact obscures fine detail. There is no definitive pathologic mediastinal, hilar or axillary adenopathy. Partially visualized thyroid is unremarkable. Central airways are widely patent. There is mild bibasilar atelectasis, right greater than left. There is no confluent alveolar consolidation, effusion or pneumothorax. ABDOMEN/PELVIS: There is a small hiatal hernia and distal esophageal wall thickening. There is diffuse low attenuation throughout the liver suggesting hepatic steatosis. The gallbladder is mildly distended. Otherwise spleen, pancreas and adrenal glands are within normal limits. Subtle splenic cleft is suggested. The abdominal aorta is normal in course and caliber. The kidneys are normal in size and attenuation bilaterally. Right renal cyst is noted. There is no evidence for urolithiasis. There is no hydronephrosis or perinephric fluid collection. The visualized urinary bladder is unremarkable. The small bowel is normal in course and caliber with no evidence for obstruction, wall thickening or pneumatosis intestinalis. The appendix is normal. There is a moderate to large colonic stool. Sigmoid colonic diverticulosis is evident. There is no pericolonic inflammation. There is no ascites or pneumoperitoneum. There is subtle cortical regularity involving the posterior margin of the left 11th, 10th and 9th ribs suggesting nondisplaced fractures. Additional anterior wedge deformity is noted at the L1 level suggesting age indeterminate compression fracture. There is less than 20% height loss. Prominent Schmorl's nodes are noted throughout the thoracolumbar vertebral bodies are and likely reflect degenerative height loss and less likely traumatic height loss. There is no retropulsion of vertebral bodies. IMPRESSION: 1. Nondisplaced fractures involving the left 9th through 11th ribs. Age indeterminate compression deformity is noted involving the L1 vertebral body as described. 2. No definitive traumatic solid organ or vascular injury. 3. Additional findings as described. Read By: MONCHO MONTENEGRO MD [facility] Comment on above: Order Comment: Fall [address]-HEAD WITHOUT CONTRASTon 0 04-24-2020 CT-HEAD WITHOUT CONTRAST CLINICAL INDICATION: UNSPECIFIED FALL, INITIAL ENCOUNTER EXAM DESCRIPTION: CT-HEAD WITHOUT CONTRAST 04/24/2020 5:20 pm COMPARISON: 03/13/2016 MRI and 11/25/2006 CT TECHNIQUE: Contiguous axial imaging was performed through the brain extending from skull vertex to the foramen magnum. Coronal and sagittal reformatted images were created and reviewed. Dose modulation techniques were employed including automated exposure control, adjustment of mA and kV according to patient size and the use of iterative reconstruction. FINDINGS: Cerebral parenchymal volume is within normal limits. The CSF containing spaces are symmetric. There is no mass, mass effect or shift of midline structures. There are no abnormal extra-axial fluid collections. Ballard-white interface is preserved. Visualized calvarium is intact. Visualized paranasal sinuses and mastoid air cells are normally aerated. IMPRESSION: No CT evidence to suggest acute intracranial process. Read By: MONCHO MONTENEGRO MD [facility] LIPASEon 04-24-2020 Lipase [Catalytic activity/Vol] 122 U/L Normal 23-300 [facility] Comment on above: Performed By: #### L IP #### [address] [address] MAGNESIUMon 04-24-2020 Magnesium [Mass/Vol] 1.8 mg/dL Normal 1.7-2.2 [facility] Comment on above: Performed By: #### M AG #### [address] [address] [employer] URINE DRUG SCREENon 0 04-24-2020 AMPHETAMINE SCREEN Negative Normal [facility] [place] [place] Comment on above: Performed By: #### T RIAG #### [address] [address] BARBITUATE SCREEN Negative Normal [facility] Comment on above: Performed By: #### T RIAG #### [address] [address] BENZODIAZEPINE SCREEN Negative Normal [facility] Comment on above: Performed By: #### T RIAG #### [address] [address] COCAINE SCREEN Negative [facility] Comment on above: Performed By: #### T RIAG #### [address] [address] METHADONE SCREEN Negative Normal [facility] Comment on above: Performed By: #### T RIAG #### [address] [address] METHAMPHETAMINE SCREEN Negative Normal [facility] Comment on above: Performed By: #### T RIAG #### [address] [address] OPIATE SCREEN Positive Abnormal [facility] [place] Comment on above: Performed By: #### T RIAG #### [address] [address] OXYCODONE SCREEN Negative Normal [facility] [place] Comment on above: Performed By: #### T RIAG #### [address] [address] PCP SCREEN Negative Normal [facility] [place] Comment on above: Performed By: #### T RIAG #### [address] [address] PROPOXYPHENE SCREEN Negative Normal [facility] Comment on above: Result Comment: ANALYTE THRESHOLD VALUE Amphetamine 500 ng/ml Barbituates 200 ng/ml Benzodiazepines 150 ng/ml Cocaine 150 ng/ml Methamphetamine 500 ng/ml Methadone 200 ng/ml Opiates 100 ng/ml Oxycodone 100 ng/ml THC 50 ng/ml Tricyclic Antidrepressants 300 ng/ml Phencyclidine (PCP) 25 ng/ml Propoxyphene 300 ng/ml NOTE: TESTING IS QUALITATIVE ONLY If QUANTITATIVE results are desired, please call laboratory to add on confirmation testing. Specimens will be held for 7 days. Performed By: #### T RIAG #### [address] [address] THC SCREEN Negative Normal [facility] [place] Comment on above: Performed By: #### T RIAG #### [address] [address] TRICYCLICS SCREEN Negative Normal [facility] Comment on above: Performed By: #### T RIAG #### [address] [address] PHOSPHORUSon 04-24-2020 Phosphate [Mass/Vol] 2.8 mg/dL Normal 2.5-4.6 [facility] [place] Comment on above: Performed By: #### P HOS #### [address] [address] PROTIMEon 04-24-2020 INR Coag (PPP) [Relative time] 0.9 {INR} Low 1.0-3.0 [facility] [place] Comment on above: Result Comment: THERAPEUTIC RANGES FOR INR: GROUP A (2.0 - 3.0) GROUP B (2.5 - 3.5) INDICATIONS FOR GROUP A: Prophylaxis and treatment of DVT, treatment of pulmonary embolism, prevention of systemic embolism, tissue heart valves, acute ME, valvular heart disease, and atrial fibrillation. INDICATION FOR GROUP B: Recurrent systemic embolism, mechanical prostetic valves, prevention of recurrent ME. -- INR STEPHANIE = 1.0 Performed By: #### P TINR #### [address] [address] PT Coag (PPP) [Time] 10.1 s Normal 9.6-11.5 [facility] [place] Comment on above: Performed By: #### P TINR #### [address] [address] PTTon 04-24-2020 aPTT Coag (Bld) [Time] 26 s Normal 23-31 [facility] Comment on above: Performed By: #### P TT #### [address] [address] Anion Gapon 11-27-2019 Anion gap [Moles/Vol] 18.0 mmol/L High 8 - 16 meq/L [place], [place] Comment on above: ANION GAP = Sodium - (Chloride + CO2) Performed at [facility] [address] [place] [id number] Basic Metabolic Panelon 10-31 Calcium [Mass/Vol] 9.0 mg/dL 8.5 - 10. 5 mg/dL [place], [place] Comment on above: Performed at [facility] [address] [place] [phone] Chloride [Moles/Vol] 105 mmol/L 98 - 11 1 meq/L [place] CO2 [Moles/Vol] 19 mmol/L Low 23 - 33 meq/L [place] Creatinine [Mass/Vol] 0.6 mg/dL 0.4 - 1.2 mg/dL [place] Glucose [Mass/Vol] 93 mg/dL 70 - 108 mg/dL [place] Potassium [Moles/Vol] 3.5 mmol/L 3.5 - 5.2 meq/L [place] Sodium [Moles/Vol] 142 mmol/L 135 - 145 meq/L [place] Urea nitrogen [Mass/Vol] 10 mg/dL 7 - 22 mg/dL [place] CBC auto differentialon 10-31 Basophils (Bld) [#/Vol] 0.1 10*3/uL [place] Basophils/100 WBC (Bld) 0.9 % [place] Eosinophils (Bld) [#/Vol] 0.1 10*3/uL [place] Eosinophils/100 WBC (Bld) 0.9 % [place] Erythrocyte distribution width (RBC) [Ratio] 13.7 % 11.5 - 14.5 % [place] Hematocrit (Bld) [Volume fraction] 50.1 % 42 - 52 % [place] Hemoglobin (Bld) [Mass/Vol] 16.9 g/dL [place] Immature Grans (Abs) 0.03 [place] Immature granulocytes (Bld) [#/Vol] 0.3 % [place] Interpretation and review of laboratory results Abnormal [place] Lymphocytes (Bld) [#/Vol] 2.3 10*3/uL [place] Lymphocytes/100 WBC (Bld) 24.4 % [place] MCH (RBC) [Entitic mass] 33.6 pg High 26 - 33 pg [place] MCHC (RBC) [Mass/Vol] 33.7 g/dL [place] MCV (RBC) [Entitic vol] 99.6 fL High 80 - 94 fL [place] Monocytes (Bld) [#/Vol] 0.8 10*3/uL [place] Monocytes/100 WBC (Bld) 8.3 % [place] Nucleated RBC/100 WBC (Bld) [Ratio] 0 % /100 wbc [place] Comment on above: Performed at [facility] [address] [place] [id number] Platelet mean volume (Bld) [Entitic vol] 8.8 fL Low 9.4 - 12.4 fL [place] Platelets (Bld) [#/Vol] 195 10*3/uL [place] RBC (Bld) [#/Vol] 5.03 10*6/uL [place] RDW-SD 50.5 fL High 35 - 45 fL [place] Segmented neutrophils/100 WBC (Bld) 65.2 % [place] Segs Absolute 6.2 [place] WBC (Bld) [#/Vol] 9.5 10*3/uL [place] Ethanolon 11-27-2019 ETHYL ALCOHOL, SERUM 0.38 % 0.00 [place] Comment on above: Performed at [facility] [address] [place] [id number] Glomerular Filtration Rate, Estimatedon 11-27-2019 Est, Glom Filt Rate >90 ml/min/1.73m2 [place], [place] Comment on above: Stage Description GF R, ml/min/1.73 m2 - At increased risk > or = 60 (with chronic kidney disease risk factors) 1 Normal or increased GFR > or = 90 2 Mildly or decreased GFR 60 - 89 3 Moderately decreased GFR 30 - 59 4 Severely decreased GFR 15 - 29 5 Kidney failure <15 (or dialysis) Estimated GFR calculated using abbreviated MDRD formula as recommended by National Kid[employer]. Calculation based upon serum creatinine and adjusted for age, gender & race. Dipika. Internal Med., Vol. 139 (2) pg 137-147. Performed at [facility] [address] [place] [address] Hepatic function panelon Albumin [Mass/Vol] 4.4 g/dL 3.5 - 5.1 g/dL [place] ALP [Catalytic activity/Vol] 89 U/L 38 - 126 U/L [place] ALT [Catalytic activity/Vol] 87 U/L High 11 - 66 U/L [place] AST [Catalytic activity/Vol] 86 U/L High 5 - 40 U/L [place] Bilirubin Ql (U) 1.1 mg/dL 0.3 - 1.2 mg/dL [place] Bilirubin.direct [Mass/Vol] mg/dL 0 - 0.3 mg/dL [place] Protein [Mass/Vol] 7.4 g/dL 6.1 - 8 g/dL [place] Comment on above: Performed at [facility] [address] [place] [phone] Lipaseon 11-27-2019 Lipase [Catalytic activity/Vol] 29.1 U/L 5.6 - 51.3 U/L [place] Comment on above: Performed at [facility] [address] [place] [address] Osmolalityon 11-27-2019 Osmolality Calc 281.9 [place], [place] Comment on above: Performed at [facility] [address] [place] [address] Otheron 11-27-2019 Interpretation and review of laboratory results Abnormal [place] Vital Signs Date Time Vital Sign Value Performing Clinician Facility 12-11-2023 13:02-0400 Body height 180.3 cm Mariia Govea MD Work Phone: [facility] 12-11-2023 13:02-0400 Body mass index (BMI) [Ratio] 29.4 kg/m2 Mariia Govea MD Work Phone: [facility] 12-11-2023 13:02-0400 Body weight 95.62 kg Mariia Govea MD Work Phone: [facility] 12-11-2023 13:02-0400 Diastolic blood pressure 90 mm[Hg] Mariia Govea MD Work Phone: [facility] 12-11-2023 13:02-0400 Systolic blood pressure 146 mm[Hg] Mariia Govea MD Work Phone: [facility] 12-07-2023 07:00-0400 Body temperature 97.59 [degF] Martha Lua MD Work Phone: [facility] 12-07-2023 07:00-0400 Diastolic blood pressure 123 mm[Hg] Martha Lua MD Work Phone: [facility] 12-07-2023 07:00-0400 Heart rate 84 /min Martha Lua MD Work Phone: [facility] 12-07-2023 07:00-0400 Respiratory rate 16 /min Martha Lua MD Work Phone: [facility] 12-07-2023 07:00-0400 SaO2% (BldA) [Mass fraction] 95 % Martha Lua MD Work Phone: [facility] 12-07-2023 07:00-0400 Systolic blood pressure 167 mm[Hg] Martha Lua MD Work Phone: [facility] 12-07-2023 04:34-0400 Body mass index (BMI) [Ratio] 29.83 kg/m2 Martha Lua MD Work Phone: [facility] 12-07-2023 04:34-0400 Body weight 97 kg Martha Lua MD Work Phone: [facility] 12-06-2023 05:17-0500 Body height 180.3 cm Martha Lua MD Work Phone: [facility] 12-05-2023 10:00-0500 Heart rate 112 /min Amy Odom DO Work Phone: [facility] 12-05-2023 10:00-0500 Respiratory rate 15 /min Amy Odom DO Work Phone: [facility] 12-05-2023 07:00-0500 Body temperature 97.81 [degF] Amy Odom DO Work Phone: [facility] 12-05-2023 07:00-0500 Diastolic blood pressure 105 mm[Hg] Amy Odom DO Work Phone: [facility] Comment on above: nurse andre sanford 12-05-2023 07:00-0500 SaO2% (BldA) [Mass fraction] 95 % Amy Odom DO Work Phone: [facility] 12-05-2023 07:00-0500 Systolic blood pressure 179 mm[Hg] Amy Odom DO Work Phone: [facility] Comment on above: nurse andre sanford 12-04-2023 17:45-0500 Body height 180.3 cm Amy Odom DO Work Phone: [facility] 12-04-2023 17:45-0500 Body mass index (BMI) [Ratio] 29.61 kg/m2 Amy Odom DO Work Phone: [facility] 12-04-2023 17:45-0500 Body weight 96.3 kg Amy Odom DO Work Phone: [facility] 10-24-2023 20:10-0500 Heart rate 104 /min Samir Wooten DO Work Phone: [facility] 10-24-2023 20:10-0500 Respiratory rate 23 /min Samir Wooten DO Work Phone: [facility] 10-24-2023 20:10-0500 SaO2% (BldA) [Mass fraction] 94 % Samir Wooten DO Work Phone: [facility] 10-24-2023 20:00-0500 Body temperature 97.9 [degF] Samir Wooten DO Work Phone: [facility] 10-24-2023 20:00-0500 Diastolic blood pressure 107 mm[Hg] Samir Wooten DO Work Phone: [facility] 10-24-2023 20:00-0500 Systolic blood pressure 159 mm[Hg] Samir Wooten DO Work Phone: [facility] 10-23-2023 19:52-0500 Body height 180.3 cm Samir Wooten DO Work Phone: [facility] 10-23-2023 19:52-0500 Body mass index (BMI) [Ratio] 31.67 kg/m2 Samir Wooten DO Work Phone: [facility] 10-23-2023 19:52-0500 Body weight 103 kg Samir Wooten DO Work Phone: [facility] 08-29-2023 09:28-0500 Diastolic blood pressure 70 mm[Hg] Apolinar Cameron II, DO Work Phone: [facility] 08-29-2023 09:28-0500 Systolic blood pressure 130 mm[Hg] Apolinar Cameron II, DO Work Phone: [facility] 08-29-2023 07:43-0500 Body height 180.3 cm Apolinar Cameron II, DO Work Phone: [facility] 08-29-2023 07:43-0500 Body mass index (BMI) [Ratio] 31.83 kg/m2 Apolinar Cameron II, DO Work Phone: [facility] 08-29-2023 07:43-0500 Body weight 103.53 kg Apolinar Cameron II, DO Work Phone: [facility] 08-29-2023 07:43-0500 Heart rate 85 /min Apolinar Cameron II DO Work Phone: [facility] 08-29-2023 07:43-0500 Respiratory rate 12 /min Apolniar Cameron II DO Work Phone: [facility] 08-29-2023 07:43-0500 SaO2% (BldA) [Mass fraction] 97 % Apolinar Cameron II DO Work Phone: [facility] 04-30-2023 12:28-0400 Diastolic blood pressure 100 mm[Hg] Ihsan Pink DO Work Phone: [facility] 04-30-2023 12:28-0400 Heart rate 100 /min Ihsan Pink DO Work Phone: [facility] 04-30-2023 12:28-0400 Respiratory rate 20 /min Ihsan Pink DO Work Phone: [facility] 04-30-2023 12:28-0400 SaO2% (BldA) [Mass fraction] 96 % Ihsan Pink DO Work Phone: [facility] 04-30-2023 12:28-0400 Systolic blood pressure 160 mm[Hg] Ihsan Pink DO Work Phone: [facility] 04-30-2023 08:57-0400 Body height 180.3 cm Ihsan Pink DO Work Phone: [facility] 04-30-2023 08:56-0400 Body temperature 97.59 [degF] Ihsan Pink DO Work Phone: [facility] 01-31-2023 11:56-0400 Diastolic blood pressure 80 mm[Hg] Apolinar Cameron II, DO Work Phone: [facility] 01-31-2023 11:56-0400 Systolic blood pressure 120 mm[Hg] Apolinar Cameron II, DO Work Phone: [facility] 01-31-2023 10:55-0400 Body height 180.3 cm Apolinar Cameron II, DO Work Phone: [facility] 01-31-2023 10:55-0400 Body mass index (BMI) [Ratio] 28.8 kg/m2 Apolinar Cameron II, DO Work Phone: [facility] 01-31-2023 10:55-0400 Body weight 93.67 kg Apolinar Cameron TOM, DO Work Phone: [facility] 01-31-2023 10:55-0400 Heart rate 86 /min Apolinar Cameron II, DO Work Phone: [facility] 01-31-2023 10:55-0400 Respiratory rate 12 /min Apolinar Cameron II, DO Work Phone: [facility] 01-31-2023 10:55-0400 SaO2% (BldA) [Mass fraction] 97 % Apolinar Cameron II, DO Work Phone: [facility] 10-02-2022 09:34-0500 Diastolic blood pressure 80 mm[Hg] Apolinar Cameron II, DO Work Phone: [facility] 10-02-2022 09:34-0500 Systolic blood pressure 126 mm[Hg] Apolinar Cameron II, DO Work Phone: [facility] 10-02-2022 08:59-0500 Body height 180.3 cm Apolinar Cameron II, DO Work Phone: [facility] 10-02-2022 08:59-0500 Body mass index (BMI) [Ratio] 29.85 kg/m2 Apolinar Cameron II DO Work Phone: [facility] 10-02-2022 08:59-0500 Body weight 97.07 kg Apolinar Cameron II DO Work Phone: [facility] 10-02-2022 08:59-0500 Heart rate 97 /min Apolinar Cameron II DO Work Phone: [facility] 10-02-2022 08:59-0500 Respiratory rate 12 /min Apolinar Cameron II DO Work Phone: [facility] 10-02-2022 08:59-0500 SaO2% (BldA) [Mass fraction] 97 % Apolinar Cameron II DO Work Phone: [facility] 03-07-2022 12:08-0400 Diastolic blood pressure 101 mm[Hg] Apolinar Cameron II, MD Work Phone: [facility] [employer] 03-07-2022 12:08-0400 Heart rate 99 /min Apolinar Cameron II, MD [facility] [place] [facility] 03-07-2022 12:08-0400 Respiratory rate 18 /min Apolinar Cameron II, MD Work Phone: [facility] [place] [facility] 03-07-2022 12:08-0400 SaO2% (BldA) [Mass fraction] 95 % Apolinar Cameron II, MD Work Phone: [facility] [employer] 03-07-2022 12:08-0400 Systolic blood pressure 144 mm[Hg] Apolinar Cameron II, MD Work Phone: [facility] [place] [facility] 03-06-2022 20:59-0400 Body temperature 98.2 [degF] Apolinar Cameron II, MD Work Phone: [facility] [employer] 10-25-2021 09:04-0500 Body height 175.3 cm Apolinar Cameron II, DO Work Phone: [facility] 10-25-2021 09:04-0500 Body mass index (BMI) [Ratio] 36.05 kg/m2 Apolinar Cameron II, DO Work Phone: [facility] 10-25-2021 09:04-0500 Body weight 110.73 kg Apolinar Cameron II, DO Work Phone: [facility] 11-27-2019 16:40-0500 BP Diastolic 83 mm[Hg] [facility] 11-27-2019 16:40-0500 BP Systolic 131 mm[Hg] [facility]- [facility], [place] 11-27-2019 16:40-0500 Pulse (Heart Rate) 97 /min [facility] [place] 11-27-2019 16:40-0500 Pulse Oximetry 91 % [facility] Medei[email or web address], [place] 11-27-2019 16:40-0500 Respiratory Rate 19 /min [facility] Medei[facility]rich[facility] 11-27-2019 15:08-0500 Body Temperature 98.4 [degF] [facility] 11-27-2019 15:08-0500 Body weight 95.25 kg [email or web address] Encounters Encounter Date Encounter Type Care Provider Facility Start: 12-11-2023 ambulatory SELF SELF Facility:[facility] Start: 12-11-2023 End: 12-11-2023 Office outpatient new 30 minutes Mariia Govea MD Work Phone: [facility] Comment on above: Avascular necrosis o f right femoral head (Primary Dx); Primary osteoarthritis of right hip; Tobacco abuse Start: 12-06-2023 End: 12-07-2023 Evaluation and management of inpatient HECTOR EDWARDS Facility:[facility] Start: 12-06-2023 End: 12-07-2023 Evaluation and management of inpatient Hector Edwards DO Work Phone: [facility] Comment on above: Alcohol abuse with w armandodrawal Start: 12-04-2023 End: 12-05-2023 ambulatory IHSAN PINK Facility:[facility] Start: 12-04-2023 End: 12-05-2023 Emergency department patient visit Jeanie Churchill MD, PhD Work Phone: [facility] Comment on above: Hip pain Start: 11-09-2023 End: 11-10-2023 Emergency department patient [facility] Start: 10-31-2023 ambulatory SELF SELF Facility:[facility] Start: 10-23-2023 End: 10-24-2023 ambulatory HECTOR DOUGLAS Facility:[facility] Start: 10-23-2023 End: 10-24-2023 Emergency department patient visit Urbano Laird MD, PhD Work Phone: [facility] Comment on above: Alcohol intoxication in active alcoholic Start: 10-13-2023 ambulatory APOLINAR E CAMERON II Facilit y:[facility] Start: 08-29-2023 ambulatory APOLINAR E CAMERON II Facilit y:[facility] Start: 08-29-2023 End: 08-29-2023 Office outpatient visit 25 minutes Apolinar Cameron DO Work Phone: [facility] Comment on above: Essential hypertensi on, benign (Primary Dx); Neuralgia of left upper extremity; Episodic tension-type headache, not intractable Start: 04-30-2023 End: 04-30-2023 Emergency department patient visit IHSAN PINK Facility:[facility] Start: 04-30-2023 End: 04-30-2023 Emergency department patient visit Ihsan Pink DO Work Phone: [facility] Start: 02-18-2023 ambulatory TERESA CHIQUITA Facility:[facility] Start: 02-07-2023 ambulatory APOLINAR E CAMERON II Facilit y:[facility] Start: 01-31-2023 ambulatory APOLINAR E CAMERON II Facilit y:[facility] Start: 01-31-2023 End: 01-31-2023 Office outpatient visit 25 minutes Apolinar Owen Cameron DO Work Phone: [facility] Comment on above: Essential hypertensi on, benign (Primary Dx); Restless leg; Primary insomnia; Special screening for malignant neoplasm of prostate; Bilateral anterior knee pain Start: 10-02-2022 End: 10-02-2022 Office outpatient visit 25 minutes Apolinar Cameron DO Work Phone: [facility] Comment on above: Essential hypertensi on, benign (Primary Dx); Bronchitis, not specified as acute or chronic; Panic anxiety syndrome Start: 03-06-2022 End: 03-07-2022 Emergency department patient visit APOLINAR CAMERON II [facility] Start: 03-06-2022 End: 03-07-2022 Emergency department patient visit Apolinar Cameron II, MD Work Phone: [facility] Comment on above: Acute alcoholic into xication with complication (HCC) (Primary Dx) Start: 10-25-2021 End: 10-25-2021 Office outpatient visit 25 minutes Apolinar Cameron DO Work Phone: [facility] Comment on above: Essential hypertensi on, benign (Primary Dx); Need for viral immunization; Muscle tension headache; Restless leg Start: 11-27-2019 End: 11-27-2019 Emergency department patient visit Frederick Kemp Work Phone: [facility] Comment on above: Acute alcoholic into xication with complication (HCC) (Primary Dx); Dizziness Procedures Date Procedure Procedure Detail Performing Clinician Start: 12-07-2023 Complete blood count with white cell differential, automated Marquis Saunders MD Work Phone: Start: 12-07-2023 Comprehensive metabo lic panel Marquis Saunders MD Work Phone: Start: 12-06-2023 Assay of magnesium Eliana Odom DO Work Phone: Start: 12-06-2023 Blood gases any comb ination ph pco2 po2 co2 hco3 Amy Odom DO Work Phone: Start: 12-06-2023 Basic metabolic pane l calcium total Marquis Saunders MD Work Phone: Start: 12-06-2023 Ecg routine ecg w/le ast 12 lds w/i&r Hector Edwards DO Work Phone: Start: 12-06-2023 End: 12-06-2023 Hemoglobin glycosylated a1c Amy lopez DO Work Phone: Start: 12-06-2023 Comprehensive metabo lic panel Hector Edwards DO Work Phone: Start: 12-06-2023 Drug test def 1-7 classes Hector Edwards DO Work Phone: Start: 12-06-2023 Ecg routine ecg w/le ast 12 lds w/i&r Hector Edwards DO Work Phone: Start: 12-05-2023 End: 12-05-2023 Basic metabolic panel calcium total Leesa Gidipikaotti PA Work Phone: Start: 12-05-2023 Complete blood count with white cell differential, automated Leesa Giannotti PA Work Phone: Start: 12-04-2023 Assay of troponin quantitative Jeanie Churchill MD, PhD Work Phone: Start: 12-04-2023 Radex hip unilateral with pelvis 2-3 views Jeanie Churchill MD, PhD Work Phone: Start: 12-04-2023 End: 12-04-2023 Comprehensive metabolic panel Jeanie Churchill MD, PhD Work Phone: Start: 12-04-2023 Ecg routine ecg w/le ast 12 lds w/i&r Jeanie Churchill MD, PhD Work Phone: Start: 10-24-2023 Basic metabolic pane l calcium total Elvis Colbert [employer] Work Phone: Start: 10-23-2023 Assay of troponin quantitative Elvis Colbert [employer] Work Phone: Start: 10-23-2023 CARDIAC RHYTHM Other Ot her Start: 10-23-2023 Assay of troponin quantitative Varghese Mike RAMOS Work Phone: Start: 10-23-2023 Ct angiography chest w/contrast/noncontrast Varghese Mike RAMOS Work Phone: Start: 10-23-2023 End: 10-23-2023 Drug test def 1-7 classes Varghese Mike RAMOS Work Phone: Start: 10-23-2023 Comprehensive metabo lic panel Varghese Mike RAMOS Work Phone: Start: 10-23-2023 Radex hip unilateral with pelvis 2-3 views Varghese Mike RAMOS Work Phone: Start: 10-23-2023 Radiologic exam ches t single view Varghese Mike RAMOS Work Phone: Start: 10-23-2023 Ecg routine ecg w/le ast 12 lds w/i&r Varghese Mike RAMOS Work Phone: Start: 10-23-2023 End: 10-23-2023 Assay of lipase Elvis Colbert [employer] Work Phone: Start: 08-29-2023 Lipid 1996 panel - S sandro or Plasma Apolinar Cameron II, DO Work Phone: Start: 04-30-2023 Assay of troponin quantitative Ihsan Pink DO Work Phone: Start: 04-30-2023 Radiologic exam ches t single view Ihsan Pink DO Work Phone: Start: 04-30-2023 Basic metabolic pane l calcium total Ihsan Pink DO Work Phone: Start: 04-30-2023 Ecg routine ecg w/le ast 12 lds w/i&r Ihsan Pink DO Work Phone: Start: 03-07-2022 Assay of ethanol Neetu Montoya PA-C Work Phone: Start: 03-06-2022 URINE WITH REFLEXED MICRO Ivonne Ritter [employer] Work Phone: Start: 03-06-2022 Anion gap [Moles/Vol] K tony Ritter [employer] Work Phone: Start: 03-06-2022 Assay of acetaminophen Ivonne Ritter [employer] Work Phone: Start: 03-06-2022 Assay of ethanol Ivonne Ritter [employer] Work Phone: Start: 03-06-2022 Assay of salicylate Ilana MillsPapirusemily [employer] Work Phone: Start: 03-06-2022 Basic metabolic pane l calcium total Ivonne Ritter [employer] Work Phone: Start: 03-06-2022 GLOMERULAR FILTRATIO N RATE, ESTIMATED Ivonne Ritter [employer] Work Phone: Start: 03-06-2022 End: 03-06-2022 Hepatic function panel Ivonne Ritter [employer] Work Phone: Start: 03-06-2022 Ecg routine ecg w/le ast 12 lds w/i&r Ivonne Ritter APRN [employer] [facility] Work Phone: Start: 11-27-2019 Anion gap [Moles/Vol] M treasure Kemp Work Phone: Start: 11-27-2019 Assay of ethanol Marcelinoame d Viridiana Work Phone: Start: 11-27-2019 Assay of lipase Marcelinoamed Viridiana Work Phone: Start: 11-27-2019 Assay of osmolality blood Frederick Kemp Work Phone: Start: 11-27-2019 Basic metabolic pane l calcium total Frederick Kemp Work Phone: Start: 11-27-2019 Blood count complete auto&auto difrntl wbc Frederick Kemp Work Phone: Start: 11-27-2019 GLOMERULAR FILTRATIO N RATE, ESTIMATED Frederick Kemp Work Phone: Start: 11-27-2019 Hepatic function panel Frederick Kemp Work Phone: Start: 11-27-2019 Ecg routine ecg w/le ast 12 lds w/i&r Frederick Kemp Work Phone: Plan of Treatment Date Care Activity Detail Author Start: 03-07-2031 DTaP/Tdap/Td vaccine (2 - Td or Tdap) DTaP/Tdap/Td vaccine (2 - Td or Tdap) [facility] Start: 03-07-2031 Tetanus vaccination [facility] Start: 08-29-2028 Lipid panel LIPID SCREENING [facility] Start: 08-29-2024 Prostate specific antigen measurement PROSTATE CANCER SCREENING DISCUSSION [facility] Start: 02-01-2024 Prostate specific antigen measurement PROSTATE CANCER SCREENING DISCUSSION [facility] Start: 12-31-2023 End: 12-31-2023 Patient encounter procedure 12/31/2023 9:30 AM EDT Office Visit [facility] [address] [address] Teresa Mo MD [address] [address] [facility] Start: 12-11-2023 End: 12-10-2024 NICOTINE SCREEN URINE NICOTINE SCREEN URINE Lab Routine Tobacco abuse Expected: 12/11/2023, Expires: 12/10/2024 [facility] Work Phone: Comment on above: Expected: 12/11/2023 , Expires: 12/10/2024 Start: 12-11-2023 End: 12-11-2023 Patient encounter procedure 12/11/2023 1:00 PM EDT Office Visit [facility] [address] [place] [address] Mariia Govea MD [address] [place] [address] [facility] Start: 10-31-2023 End: 10-31-2023 Patient encounter procedure 10/31/2023 11:30 AM EST Office Visit [facility] [address] [facility] [address] [place] [address] - Apolinar Cameron II, DO [address] [facility] [address] [place] [address] [facility] Start: 08-29-2023 End: 08-29-2024 VITAMIN B1 [facility] [employer] Phone: Comment on above: Expected: 08/29/2023 , Expires: 08/29/2024 Start: 08-29-2023 End: 08-29-2024 VITAMIN B6 [facility] [employer] Phone: Comment on above: Expected: 08/29/2023 , Expires: 08/29/2024 Start: 05-30-2023 COVID-19 VACCINE ( season) COVID-19 VACCINE ( season) [facility] Start: 05-30-2023 Influenza vaccination [facility] Start: 01-31-2023 End: 02-01-2024 Complete blood count with white cell differential, automated CBC, EDIF, PLATELET Lab Routine Essential hypertension, benign Restless leg Primary insomnia Expected: 01/31/2023, Expires: 02/01/2024 [employer] Phone: Comment on above: Expected: 01/31/2023 , Expires: 02/01/2024 Start: 01-31-2023 End: 02-01-2024 Comprehensive metabolic 2000 panel - Serum or Plasma COMPREHENSIVE METABOLIC PANEL Lab Routine Essential hypertension, benign Expected: 01/31/2023, Expires: 02/01/2024 [facility] [employer] Phone: Comment on above: Expected: 01/31/2023 , Expires: 02/01/2024 Start: 01-31-2023 End: 02-01-2024 IRON AND TOTAL IRON BINDING CAPACITY IRON AND TOTAL IRON BINDING CAPACITY Lab Routine Restless leg Expected: 01/31/2023, Expires: 02/01/2024 [employer] Phone: Comment on above: Expected: 01/31/2023 , Expires: 02/01/2024 Start: 01-31-2023 End: 02-01-2024 LIPID PANEL W CALCULATED LDL LIPID PANEL W CALCULATED LDL Lab Routine Essential hypertension, benign Expected: 01/31/2023, Expires: 02/01/2024 [employer] Phone: Comment on above: Expected: 01/31/2023 , Expires: 02/01/2024 Start: 01-31-2023 End: 02-01-2024 PSA screening PSA, SCREENING Lab Routine Special screening for malignant neoplasm of prostate Expected: 01/31/2023, Expires: 02/01/2024 [employer] Phone: Comment on above: Expected: 01/31/2023 , Expires: 02/01/2024 Start: 01-31-2023 End: 02-01-2024 Thyrotropin [Units/volume] in Serum or Plasma TSH Lab Routine Essential hypertension, benign Primary insomnia Expected: 01/31/2023, Expires: 02/01/2024 [employer] Phone: Comment on above: Expected: 01/31/2023 , Expires: 02/01/2024 Start: 09-07-2022 Colonoscopy COLORECTAL CAN CER SCREENING DISCUSSION [facility] Start: 09-07-2022 Screening for malign ant neoplasm of colon COLORECTAL CANCER SCREENING DISCUSSION [facility] Start: 05-30-2022 Influenza vaccination [facility] Start: 03-07-2022 Prostate specific antigen measurement PROSTATE CANCER SCREENING DISCUSSION [facility] Start: 12-20-2021 Zoster vaccine hzv l eleonora for subcutaneous use ZOSTER (SHINGLES) VACCINE (3 of 3) [facility] Start: 05-30-2021 Influenza vaccination INFLUENZA VACC INE (#1) [facility] Start: 02-21-2021 COVID-19 VACCINE (2 - Booster for Grisel series) COVID-19 VACCINE (2 - Booster for Grisel series) [facility] Start: 05-30-2019 Influenza vaccination Flu vaccine (# 1) [place], [place] Start: 2008 Fasting lipid profile LIPID SCREENIN G [facility] Start: 2008 Lipid panel L[facility] SCREENING [facility] Start: 1987 Hepatitis B vaccination HEP B VACCINE (1 of 3 - 19+ 3-dose series) [facility] Start: 1974 PNEUMOCOCCAL VACCINE SERIES (1 - PCV) PNEUMOCOCCAL VACCINE SERIES (1 - PCV) [facility] Start: 1974 PNEUMOCOCCAL VACCINE SERIES (1 of 2 - PCV) PNEUMOCOCCAL VACCINE SERIES (1 of 2 - PCV) [facility] Start: 1974 PNEUMOCOCCAL VACCINE SERIES (1 of 2 - PPSV23) PNEUMOCOCCAL VACCINE SERIES (1 of 2 - PPSV23) [facility] Start: 1973 COVID-19 Vaccine (1) COVID-19 Vaccin e (1) [facility] Behav assmt w/score & docd/stand instrument SD BEHAV ASSMT W/SCORE & DOCD/STAND INSTRUMENT SD Charge Routine Panic anxiety syndrome Ordered: 10/02/2022 [employer] Work Phone: Comment on above: Ordered: 10/02/2022 EKG 12 Lead EKG 12 Lead ECG Routine 03/06/2022 8:56 PM EDT [facility] Phone: EKG Emergency EKG Emergency EC G STAT 11/27/2019 2:59 PM [place], [place] Standard ECG ECG ECG STAT 05/2024 1:51 AM [facility] [employer] Phone: Standard ECG ECG ECG Routine 12/06/2023 4:53 AM [facility] [employer] Phone: End: 11-27-2019 Urinalysis Reflex to Culture Urinalysis Reflex to Culture Lab STAT One Time for 1 Occurrences starting 11/27/2019 until 11/27/2019 [place] Comment on above: One Time for 1 Occur rences starting 11/27/2019 until 11/27/2019 End: 11-27-2019 Urine Drug Screen Urine Drug Screen Lab STAT One Time for 1 Occurrences starting 11/27/2019 until 11/27/2019 [facility] [place], [place] Comment on above: One Time for 1 Occur rences starting 11/27/2019 until 11/27/2019 End: 12-05-2023 VITAMIN D (25-HYDROXY,TOTAL) [facility] Work Phone: Comment on above: One Time for 1 Occur rences starting 12/05/2023 until 12/05/2023 Immunizations Immunization Date Immunization Notes Care Provider Fa mayda 10-25-2021 zoster vaccine recombinant Apolinar Cameron II, DO Work Phone: [facility] 10-25-2021 zoster vac recomb adjuvanted 50 MCG/0.5ML Recon Susp Apolinar Cameron II, DO Work Phone: [facility] 10-25-2021 zoster vaccine, unspecified formulation Apolinar Cameron II, DO Work Phone: [facility] 03-07-2021 diphtheria, tetanus toxoids and acellular pertussis vaccine, unspecified formulation Apolinar Cameron II, DO Work Phone: [facility] 03-07-2021 tetanus toxoid, redu blanca diphtheria toxoid, and acellular pertussis vaccine, adsorbed Apolinar Cameron II, DO Work Phone: [facility] 03-07-2021 varicella zoster imm une globulin Apolinar Cameron II, DO Work Phone: [facility] 03-07-2021 zoster vaccine, live Apolinar Alfred ams II, DO Work Phone: [facility] Payers Date Payer Category Payer Medicaid [id number] 2020 Unknown [employer] [id number] 2020-Present [address] [place] [address] [id number] 2020 Unknown [id number] 2014 Unknown [employer] [facility] MEDICAID xxxxxxxxxxx 2014-Present [phone] CLAIMS DEPARTMENT [address] [place] [address] xxxxxxxxxxx [id number] 2014 Unknown [id number] 1968 Unknown [id number] 1968 Unknown [id number] 1968 Unknown [id number] [id number] 1968 Unknown [id number] [id number] 1968 Unknown [id number] [id number] 1968 Unknown [id number] 1968 Unknown [id number] [id number] 1968 Unknown [id number] [id number] 1968 Unknown [id number] 1968 Unknown [id number] [id number] 1968 Unknown [id number] [id number] 1968 Unknown [id number] 1968 Unknown [id number] [id number] 1968 Unknown [id number] Social History Date Type Detail Facility Start: 11-27-2019 End: 12-11-2023 Tobacco smoking status NHIS Current every day smoker [place], [place] Start: 11-27-2019 End: 10-02-2022 Cigarettes smoked current (pack per day) - Reported [place] Start: 11-27-2019 End: 12-11-2023 Alcohol intake Current drinker of alcohol (finding) [place] Start: 11-27-2019 Alcohol Comment atleast a pint every day [place], [place] Start: 1970 Sex Assigned At Not on file [place], [place] Start: 10-25-2021 End: 12-11-2023 Tobacco use and exposure Smokeless tobacco non-user [facility] Start: 10-25-2021 Alcohol intake 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 (finding) [facility] Start: 04-16-2016 History SDOH Alcohol Comment Hx of binge drinking/withdrawal/se izures [facility] Start: 04-16-2016 End: 09-02-2022 Tobacco Comment quit 2013 [facility] Start: 08-23-2022 End: 09-02-2022 Exposure to SARS-CoV-2 (event) Not sure [facility] Start: 03-07-2022 History SDOH Alcohol Frequency 5 BON [employer] [facility] [employer] Phone: Start: 11-27-2019 History SDOH Alcohol Comment atleast a pint every day [facility] [employer] Phone: History of tobacco use Cigarette Smoker [facility] [employer] Phone: Start: 10-02-2022 End: 04-30-2023 Tobacco use panel [facility] [employer] Phone: Adolescent depressio n screening assessment 2 [facility] [employer] Phone: Has the [employer], or [employer] threatened to shut off services in your home in past 12Mo No [facility] (I/We) worried whemelva er (my/our) food would run out before (I/we) got money to buy more. Never true [employer] Work Phone: At any time in the p ast 12 months, were you homeless or living in assisted [including now]? Yes [employer] Phone: Clinical Notes 10-25-2021 to 12-11-2023 Mariia Govea MD - 12/11/2023 1:00 PM Lorne Lua MD - 12/07/2023 10:25 AM Lorne Lua MD - 12/07/2023 10:25 AM Brant Gray RN - 12/07/2023 10:24 AM EDTAttachments Note Date & Type Note Facility 12-11-2023 History of Presen t illness Narrative NAME: Angella Fernandez : 1970 DATE: 12/11/2023 CHIEF COMPLAINT/REASON FOR VISIT: Right hip pain. HISTORY OF PRESENT ILLNESS: Angella is a very pleasant 53 y.o. male who presents for evaluation of right hip pain. He says that the pain has been present for several months and came on in the absence of any known trauma or significant activity change. He feels the pain primarily in the groin and denies radiation past the knee. He also denies sensory changes in the lower extremity. He has tried over the counter medications, ice/heat, activity modification, and steroid injections (he describes an x-rays deep into the hip done with x-ray guidance) without significant or durable relief. The pain has been getting progressively worse and he is noticing increasing limitations in range of motion of the hip. At this point in time he is unable to walk more than short distances without pain, and is having increasing difficulty getting restful sleep, and is therefore is beginning to feel functionally disabled by the pain. Of note, he has multiple recent hospitalizations for both his right hip pain as well as alcohol intoxication/withdrawal. He says that he was previously a heavy drinker when he was younger, but no longer drinks with regularity. PAST MEDICAL/SURGICAL HISTORY: Patient Active Problem List Diagnosis Essential hypertension Bradycardia Bronchitis Obesity (BMI 30.0-34.9) Alcohol intoxication in active alcoholic Hip pain Alcohol abuse with withdrawal Past Medical History: Diagnosis Date Alcohol withdrawal seizures Bradycardia COVID-19 09/2021 Essential hypertension, benign Migraine Osteoarthritis 09/2023 Right hip Spondylosis, cervical Past Surgical History: Procedure Laterality Date ORCHIECTOMY LAPAROSCOPIC TONSILLECTOMY MEDICATIONS: Outpatient Medications Prior to Visit Medication Sig Dispense Refill amLODIPine 10 MG tablet TAKE 1 TABLET BY MOUTH DAILY 30 tablet 2 Atorvastatin 40 MG tablet Take 1 tablet by mouth daily. 30 tablet 2 Cyclobenzaprine 10 MG tablet Take 1 tablet by mouth at bedtime as needed for Muscle spasms. lidocaine 5 % Patch patch Place 2 patches on skin every 24 hours. Max of 12 hours of application then remove. 60 patch 0 Melatonin 10 MG tablet Multiple Vitamins-Minerals (Thera-M) tablet Take 1 tablet by mouth daily. 30 tablet 0 Thiamine 100 MG tablet diclofenac EC [address] tablet Take 1 tablet by mouth 2 times daily as needed for Mild Pain or Moderate Pain. (Patient not taking: Reported on 12/11/2023) hydroCODone-acetaminophen 5-325 MG tablet Take 1 tablet by mouth every 6 hours as needed for up to 5 days. (Patient not taking: Reported on 12/11/2023) 20 tablet 0 No facility-administered medications prior to visit. ALLERGIES: No Known Allergies FAMILY HISTORY: Non-contributory to his current orthopedic problem. 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 PHYSICAL EXAMINATION: Vital signs - Ht Readings from Last 3 Encounters: 12/11/23 1.803 m (5' 11 ) 12/06/23 1.803 m (5' 11 ) 12/04/23 1.803 m (5' 11 ) Wt Readings from Last 3 Encounters: 12/11/23 95.6 kg (210 lb 12.8 oz) 12/07/23 97 kg (213 lb 13.5 oz) 12/04/23 96.3 kg (212 lb 4.9 oz) Estimated body mass index is 29.4 kg/m as calculated from the following: Height as of this encounter: 1.803 m (5' 11 ). Weight as of this encounter: 95.6 kg (210 lb 12.8 oz). General - Well-appearing and in no acute distress. Well-developed and well-nourished. Psychiatric - Alert and oriented times three. Cooperative with the history and physical examination, with normal affect. MUSCULOSKELETAL EXAM Gait - Walks with an antalgic gait. Tenderness to palpation - Tenderness to palpation right hip: No significant tenderness over greater trochanter. Tenderness to palpation left hip: No significant tenderness over greater trochanter. Tenderness to palpation right knee: No significant tenderness over the medial or lateral joint lines. Tenderness to palpation left knee: No significant tenderness over the medial or lateral joint lines. Range of motion Range of motion right hip: Limited/stiff range of motion with pain in flexion and internal/external rotation. Range of motion left hip: Essentially full, supple, pain free motion with flexion and internal/external rotation. Range of motion right knee: Supple and pain free. Range of motion left knee: Supple and pain free. Stability right right: Stable to varus/valgus and anterior/posterior stress. Stability left knee: Stable to varus/valgus and anterior/posterior stress. Motor function Right lower extremity: Full strength with knee extension and ankle dorsiflexion/plantarflexion. Left lower extremity: Full strength with knee extension and ankle dorsiflexion/plantarflexion. Neurological/sensation Right lower extremity: Sensation intact to light touch in sural, saphenous, superficial peroneal, deep peroneal and tibial distributions. Negative straight leg raise. Left lower extremity: Sensation intact to light touch in sural, saphenous, superficial peroneal, deep peroneal and tibial distributions. Negative straight leg raise. Pulses Right lower extremity: Dorsalis pedis pulse palpable with warm and well perfused foot Left lower extremity: Dorsalis pedis pulse palpable with warm and well perfused foot Skin Right lower extremity: Skin intact without rashes, abrasions or other abnormality. Left lower extremity: Skin intact without rashes, abrasions or other abnormality. IMAGING: I personally reviewed the hip x-rays with the patient, explaining the bhardwaj findings. X-rays demonstrate end stage degenerative changes of the joint with loss of joint space, subchondral sclerosis, subchondral cystic changes and osteophyte formation. He has loss of sphericity of the femoral head with subchondral cystic changes consistent with avascular necrosis. ASSESSMENT AND PLAN: Diagnosis - Right hip arthritis secondary to avascular necrosis Plan - We had an in-depth discussion about his symptoms, physical examination and imaging findings. I explained the nature and natural history of avascular necrosis and degenerative joint disease. I explained that it is a progressive process, but there is no way to predict how quickly a patient's symptoms will get worse, and the decision for how to manage symptoms rests largely with the patients perceived functional disability. I advised him that there are three broad categories of treatment that I recommend patients to progress through sequentially as follows from least invasive to most invasive: 1) Initially the recommendation is for patients to manage their pain symptomatically, with 3-5 day courses of nonsteroidal anti-inflammatories, physical activity to maintain mobility, activity modification to avoid provocative activities, and use of assistive devices or orthoses. I explained to him that the existing data shows the best interventions he can take to slow the progression of the degenerative changes in the long-term are to maintain a healthy weight and perform low impact exercise such as cycling, walking, or swimming. At this point he feels like he has exhausted the benefit of these treatments. 2) The second level of intervention is more invasive, specifically corticosteroid injections. I described injections as a more invasive way to treat the pain of arthritis, but made it clear that they do not change the progression of the disease. I explained that there is reasonable evidence that intra-articular steroid injections provide relief for a approximately 4-6 weeks, but that there is no way to predict the degree or duration of symptom relief in a given patient. I explained that there is a small risk of a local inflammatory reaction after an injection, as well as the potential to develop an infection secondary to the injection. He also understands that I recommend waiting a minimum of 3-months after an injection before undergoing total joint arthroplasty. He has tried injections and did not achieve satisfactory relief of symptoms. 3) The ultimate treatment for end-stage hip arthritis is a total hip replacement. I explained the general nature of hip replacement surgery, the primary risks of surgery, the expected post-operative course. I emphasized that joint replacement surgery is a major operation, and even when he is a candidate from a medical/surgical perspective, only he can make the final decision about whether or not to proceed based on his own feeling of disability. I used his own x-rays and a model of the implants to explain what a hip replacement was in detail, and answered all of his questions about the surgery. He understands that we will plan for discharge home from the hospital on the same day as surgery, and that it will take 4-6 weeks before he feels like he is able to comfortably perform activities of daily living independently. I advised him that it is on the order of 4-6 months before he will be able to return to more vigorous activity, and that it can take 12-18 months before he achieves his final result after surgery. I also explained to him the importance of having realistic expectations about the benefits of total hip replacement. I advised him that the most reliable benefit of hip replacement is improvement in arthritis-related pain, but that it does not lead to complete relief of pain in all patients. I also emphasized that the recovery after a hip replacement is challenging. He understands these facts, as well as the general and specific risks of complication after hip replacement. I explained to him that his active tobacco use significantly increases the risk of post-operative complications (roughly 2x relative risk) including wound healing problems, prosthetic joint infection, and poor functional outcome. I explicitly explained that infection can lead to multiple additional surgeries and in extreme cases lead to explantation of all components or even amputation. I explained that these risks have been shown to decrease following smoking cessation, which he clearly understands. I explained the potential role of behavioral therapy as well as medications to assist in smoking cessation, and he will discuss additional smoking cessation options with his primary care doctor. I explained to him that the protocol is for him to quit using any nicotine products, and that 2-3 weeks after he has fully quit he can come into our lab to be tested for nicotine metabolites. If that testing demonstrates that he is nicotine free, we will schedule surgery 4-6 weeks into the future. He understands that he will also be tested again 1-2 weeks prior to surgery and a positive test at that point will lead to cancellation of the procedure. We also discussed his alcohol use in the fact that if he continued to have ongoing presentation this/admissions for alcohol related symptoms, we would delay any consideration of surgery. Specific considerations for his surgery include: Clearance - Documented smoking cessation, 90-days from injection, no recent alcohol related admissions Implants - Avenir / G7 Preferred date of surgery - Only after documented smoking cessation He appropriately requested medical pain management, and I explained to him that prior to a surgical procedure I would not prescribe any opioid pain medications. I provided him with a script for meloxicam, as well as a referral to see a medical pain management doctor to discuss nonsurgical management of his chronic pain. All of his questions were answered and he was comfortable with this plan of care. He was encouraged to contact me if any problems, questions or concerns arise. Mariia Govea MD documented in this encounter [facility] Work Phone: 12-07-2023 Hospital course Narrative [facility] / Discharge Summary Angella Fernandez Account: [id number] Admitted: 12/06/2023 Discharge Date/Time: 12/07/23 3:43 PM Handoff to PCP [facility] PCP Handoff: Routine hospital follow up Clinical Summary Angella Fernandez is a 53 y.o. male with a MMP including alcohol use, hypertension and admission to 12/03-12/05/2023 for 1 month history of worsening right hip pain acutely worsened few days prior which prompted the hospitalization with a hospital course complicated by hyponatremia. Patient was discharged on home diclofenac and Flexeril however re-presented to the ED 12/06/2023 with restlessness, sweatiness and nausea and concerned for alcohol withdrawal. Found to have anion gap metabolic acidosis, resolved with hydration. Clinically improved with ongoing acute right hip pain. Reviewed multimodal pain control plan and prescribed short course of [place] to be used for breakthrough pain needs. Referred for orthopedic evaluation, reviewed OARRS and stressed importance of alcohol cessation. Hypokalemia: In the setting of nausea and vomiting. K 3.4. Replaced, improved. Right hip pain: With inability to ambulate due to pain on arrival. Secondary to right hip osteoarthritis with degenerative changes and questionable osteonecrosis. Continue lidocaine patch and Flexeril. Added [place] for homegoing breakthrough needs. Has a follow-up appointment with orthopedic 12/11/2023 with likely need for MRI. Alcohol Abuse: Had a lengthy discussion with the patient regarding his alcohol use. Patient admitted to having issue with occasional binge drinking due to right hip pain. Denied daily alcohol intake in the last 2 months and was able to go weeks without drinking. He also reported being concerned about going into alcohol withdrawal after leaving the hospital 12/05/2023 and admitted to drinking 5 whiskeys. Slightly tachycardic on admit. Denied hallucinations or tremors. Improved with low CIWA scores after 1 dose of Ativan. Stressed alcohol cessation and offered resources. Dehydration: Noted clinically with dry mucosal membrane and tachycardia. IV hydration as discussed, resolved. AGMA: Likely 2/2 to n/v and poor oral intake and excessive volume loss. Admit Bicarb 11.0, anion gap 22. IVF given and now resolved. Elevated lipase: Possibly secondary to alcohol intake. At 476 on admit. No signs of pancreatitis/no abdominal tenderness. Presumed Gastritis: vs PUD. Secondary to NSAIDS and ETOH intake. PPI. Healthy heart diet. Leukocytosis: Likely reactive secondary to above. At 16.67 on admit, resolved. Disposition: Home Discharge Medications Medication List START taking these medications Atorvastatin 40 MG TABS Commonly known as: LIPITOR Take 1 tablet by mouth daily. hydroCODone-acetaminophen 5-325 MG TABS Commonly known as: NORCO Take 1 tablet by mouth every 6 hours as needed for up to 5 days. CHANGE how you take these medications lidocaine 5 % PTCH patch Commonly known as: LIDODERM Place 2 patches on skin every 24 hours. Max of 12 hours of application then remove. What changed: when to take this reasons to take this CONTINUE taking these medications amLODIPine 10 MG TABS Commonly known as: NORVASC TAKE 1 TABLET BY MOUTH DAILY Cyclobenzaprine 10 MG TABS Commonly known as: FLEXERIL diclofenac EC [address] tablet Commonly known as: VOLTAREN Thera-M TABS Take 1 tablet by mouth daily. Where to Get Your Medications These medications were sent to [facility] [id number] [place] [address] - [address], [facility] [id number] hydroCODone-acetaminophen 5-325 MG TABS lidocaine 5 % PTCH patch Physician(s) Family: Apolinar Cameron II (Inactive), , Address: [address] [place] [address] Future Appointments Date Time Provider Department Center 12/11/2023 1:00 PM Mariia Govea MD [address] [place] [address] 12/31/2023 9:30 AM Teresa Mo MD [facility] Follow Up: Apolinar Cameron II, DO [address] [facility] [address] Call Additional Information: Patient seen and examined day of discharge. For more information regarding patient's care, including complete radiology reports, please contact [facility] Medical Records at . Patient instructions, including activity, were given to the patient/family at discharge. Please see the After Visit Summary in the medical record for details. Evaluated the patient on the day of discharge. They are being discharged in stable condition. Discussed discharge plan with the patient, who is in agreement. Patient feeling improved. Ongoing right hip pain interfering with mobility. Reviewed ROM exercises and multimodal pain control plan. Heart RRR, lungs CTAB, abdomen NTTP, mild TTP right hip. Time spent on discharge: > 30 Minutes Completed by: Martha Lua MD on 12/07/23, 3:43 PM documented in this encounter [facility] Work Phone: 12-07-2023 Hospital course Narrative [facility] Medicine / Discharge Summary Angella Fernandez Account: [id number] Admitted: 12/06/2023 Discharge Date/Time: 12/07/23 / 3:43 PM Handoff to PCP [facility] PCP Handoff: Routine hospital follow up Clinical Summary Angella Fernandez is a 53 y.o. male with a MMP including alcohol use, hypertension and admission to 12/03-12/05/2023 for 1 month history of worsening right hip pain acutely worsened few days prior which prompted the hospitalization with a hospital course complicated by hyponatremia. Patient was discharged on home diclofenac and Flexeril however re-presented to the ED 12/06/2023 with restlessness, sweatiness and nausea and concerned for alcohol withdrawal. Found to have anion gap metabolic acidosis, resolved with hydration. Clinically improved with ongoing acute right hip pain. Reviewed multimodal pain control plan and prescribed short course of [place] to be used for breakthrough pain needs. Referred for orthopedic evaluation, reviewed OARRS and stressed importance of alcohol cessation. Hypokalemia: In the setting of nausea and vomiting. K 3.4. Replaced, improved. Right hip pain: With inability to ambulate due to pain on arrival. Secondary to right hip osteoarthritis with degenerative changes and questionable osteonecrosis. Continue lidocaine patch and Flexeril. Added [place] for homegoing breakthrough needs. Has a follow-up appointment with orthopedic 12/11/2023 with likely need for MRI. Alcohol Abuse: Had a lengthy discussion with the patient regarding his alcohol use. Patient admitted to having issue with occasional binge drinking due to right hip pain. Denied daily alcohol intake in the last 2 months and was able to go weeks without drinking. He also reported being concerned about going into alcohol withdrawal after leaving the hospital 12/05/2023 and admitted to drinking 5 whiskeys. Slightly tachycardic on admit. Denied hallucinations or tremors. Improved with low CIWA scores after 1 dose of Ativan. Stressed alcohol cessation and offered resources. Dehydration: Noted clinically with dry mucosal membrane and tachycardia. IV hydration as discussed, resolved. AGMA: Likely 2/2 to n/v and poor oral intake and excessive volume loss. Admit Bicarb 11.0, anion gap 22. IVF given and now resolved. Elevated lipase: Possibly secondary to alcohol intake. At 476 on admit. No signs of pancreatitis/no abdominal tenderness. Presumed Gastritis: vs PUD. Secondary to NSAIDS and ETOH intake. PPI. Healthy heart diet. Leukocytosis: Likely reactive secondary to above. At 16.67 on admit, resolved. Disposition: Home Discharge Medications Medication List START taking these medications Atorvastatin 40 MG TABS Commonly known as: LIPITOR Take 1 tablet by mouth daily. hydroCODone-acetaminophen 5-325 MG TABS Commonly known as: NORCO Take 1 tablet by mouth every 6 hours as needed for up to 5 days. CHANGE how you take these medications lidocaine 5 % PTCH patch Commonly known as: LIDODERM Place 2 patches on skin every 24 hours. Max of 12 hours of application then remove. What changed: when to take this reasons to take this CONTINUE taking these medications amLODIPine 10 MG TABS Commonly known as: NORVASC TAKE 1 TABLET BY MOUTH DAILY Cyclobenzaprine 10 MG TABS Commonly known as: FLEXERIL diclofenac EC [address] tablet Commonly known as: VOLTAREN Thera-M TABS Take 1 tablet by mouth daily. Where to Get Your Medications These medications were sent to [facility] [id number] - [place] [address] - [address], [facility] [id number] hydroCODone-acetaminophen 5-325 MG TABS lidocaine 5 % PTCH patch Physician(s) Family: Apolinar Cameron II (Inactive), , Address: [address] [facility] [address] / [facility] [address] Future Appointments Date Time Provider Department Center 12/11/2023 1:00 PM Mariia Govea MD [facility] 12/31/2023 9:30 AM Teresa Mo MD [facility] Follow Up: Apolinar Cameron II, DO [address] [facility] [address] [facility] [address] Call Additional Information: Patient seen and examined day of discharge. For more information regarding patient's care, including complete radiology reports, please contact [facility] Medical Records at . Patient instructions, including activity, were given to the patient/family at discharge. Please see the After Visit Summary in the medical record for details. Evaluated the patient on the day of discharge. They are being discharged in stable condition. Discussed discharge plan with the patient, who is in agreement. Patient feeling improved. Ongoing right hip pain interfering with mobility. Reviewed ROM exercises and multimodal pain control plan. Heart RRR, lungs CTAB, abdomen NTTP, mild TTP right hip. Time spent on discharge: > 30 Minutes Completed by: Martha Lua MD on 12/07/23, 3:43 PM documented in this encounter [facility] [employer] Phone: 12-07-2023 History of Presen t illness Narrative 12/07/23 1023 Referral Information Arrived From home or self-care Final Discharge Planning Discharge Disposition Home CM/SW AVS Portion Completed Yes Plan Plan home with PCP and ortho FU Patient/Family In Agreement With Plan yes Transport Request Mode of Transfer Private Vehicle Angella ask about a cane. Informed him of the [employer] supply room. He verbalized understanding and reports he has access to canes, walking sticks, 3 wheeled scooter that goes about 40 mph . Reminded him of upcoming ortho appointments and MH resources should he need/choose. Monik Gray BA, RN Rounding Nurse/Hall Tender [facility] / Inpatient Progress Note 12/06/23 Angella Fernandez 1970 [id number] Assessment/Plan: Angella Fernandez is a 53 y.o. male with a MMP including alcohol use, hypertension, hyperlipidemia and admission to 12/03-12/05/2023 for 1 month history of worsening right hip pain acutely worsened few days prior which prompted the hospitalization with a hospital course complicated by hyponatremia. Patient was discharged on home diclofenac and Flexeril however re-presented to the ED 12/06/2023 with restlessness, sweatiness and nausea and concerned for alcohol withdrawal. Found to have anion gap metabolic acidosis. Hypokalemia: In the setting of nausea and vomiting. K 3.4. Replaced as discussed. Recheck. Right hip pain: With inability to ambulate due to pain on arrival. Secondary to right hip osteoarthritis with degenerative changes and questionable osteonecrosis. Ambulating well after receiving morphine. Continue lidocaine patch and Flexeril. Oxycodone started. Has a follow-up appointment with orthopedic 12/11/2023 with likely need for MRI. Still with significant pain 12/05, add a few doses of PRN toradol which did help during last admit. Suspected alcohol withdrawal: Had a lengthy discussion with the patient regarding his alcohol use. Patient admitted to having issue with occasional binge drinking due to right hip pain. Denied daily alcohol intake in the last 2 months and was able to go weeks without drinking. He also reported being concerned about going into alcohol withdrawal after leaving the hospital 12/05/2023 and admitted to drinking 5 whiskeys. Described sweatiness and restlessness. Slightly tachycardic on admit. Started on CIWA protocol and IVF. Discussed risks vs benefits of phenobarb taper, but pt does not want to stay in hospital for entire course if possible. Monitor closely. Dehydration: Noted clinically with dry mucosal membrane and tachycardia. IV hydration as discussed. AGMA: Likely 2/2 to n/v and poor oral intake and excessive volume loss. Admit Bicarb 11.0, anion gap 22.4. IVF given and now improved with normal bicarb. Lytes improving. Monitor. NSAIDs held. Protonix started. Elevated lipase: Possibly secondary to alcohol intake. At 476 on admit. No signs of pancreatitis/no abdominal tenderness. Trend. Presumed Gastritis: vs PUD. Secondary to NSAIDS and ETOH intake. All NSAIDS discontinued on admit. PPI. Healthy heart diet. Leukocytosis: Likely reactive secondary to above. At 16.67 on admit. Trend. HTN: Per history. Slightly hypertensive on admit. Amlodipine resumed. HLD: Per history. Statin resumed. Code Status: Full code VTE Prophylaxis: SCD Current living situation: Home Expected disposition: Home Expected length of stay: less than 2 midnights Legal Guardian: No Subjective: Patient was discharged yesterday by me and represented to the ED for concern that he was having alcohol withdrawal and for persistent hip pain. I reviewed chart for all vitals, diagnostic data, and erp consultant notes. I discussed patient's care with RN, hotel housekeeper, Pharmacy, PT, Hall Tender, and Silver Wrapper. Bp has been elevated. VSS otherwise, afebrile. Evaluated pt at bedside. He is resting comfortably in bed. Still with right hip pain without significant change, possibly some improvement. Pain much worse with movement. Does not appear to be in alcohol withdrawal. Reports poor sleep. Denies tremors, hallucinations, confusion, headache, vision changes, palpitations, agitation, fevers, chills. No n/v today. Still with poor appetite. Does admit to taking his NSAIDs at home with alcohol and has not been eating much. Discussed risks vs benefits of phenobarb taper. Patient would prefer to hold off on phenobarb taper at this time is he is concerned about his ability to stay in the hospital for completion of the taper. Via joint decision making decided that we will continue CIWA for now. Afternoon labs pending which I will follow up on. Still pain with Physical Exam: BP (!) 173/107 (BP Location: Right arm, BP Position: Lying) Comment: Rn Notifed, Pt just walked to restroom Pulse 133 Temp 98.4 F (36.9 C) (Temporal) Resp 21 Ht 1.803 m (5' 11 ) Wt 95.1 kg (209 lb 10.5 oz) SpO2 94% BMI 29.24 kg/m Smoking Status Every Day General: appears stated age, in NAD Eyes: anicteric, EOMI ENT: neck supple, moist mucous membranes Cardiovascular: regular rate and rhythm, no peripheral edema Respiratory: clear to auscultation b/L; no wheezes/crackles Gastrointestinal: soft, non-distended Genitourinary: no suprapubic tenderness, no amaya in place Musculoskeletal: Right hip TTP and with any movement. no joint edema, no bony deformities Skin: warm, dry Neuro: alert and oriented x3 with no focal deficits Psych: mood appropriate Current Medications: amLODIPine 10 mg Oral Daily Atorvastatin 40 mg Oral Daily lidocaine 2 patch Transdermal Q24H LORazepam 1-4 mg Intravenous See admin instructions Or LORazepam 1-4 mg Oral See admin instructions Pantoprazole 40 mg Oral Daily Labs, Imaging, and Studies reviewed: Recent Labs 12/04/2393712/05/23 0511 12/06/23 0205 WBC 13.07* 8.30 16.67* HGB 16.3 14.7 15.7 HCT 49.9 43.6 46.7 PLATELET 306 235 300 Recent Labs 12/04/23 0938 12/05/23 0500 12/05/23 0511 12/06/23 0205 SODIUM 148* -- 139 142 POTASSIUM 3.8 -- 3.5 3.4* CHLORIDE 112* -- 109 109 CO2 15.0* -- 25.0 11.0* BUN 18 -- 14 17 CREATSERUM 0.93 -- 0.59* 1.14 GFR 90 -- 151 71 GLUCOSE 95 -- 90 116* CALCIUM 10.1 -- 9.8 10.2 ALBUMIN 5.0 -- -- 4.6 PHOSPHORUS 4.0 -- 2.9 -- MAGNESIUM 1.8 1.8 -- -- Recent Labs 12/04/23 0938 12/06/23 0205 ALT 44 35 AST 51 45 ALKPHOS 113 120 BILITOTAL 2.9* 2.1* No results for input(s): INR in the last 72 hours. 12/06/23 0903 Patient Interview Type of Readmission Unplanned Who is interview with? Patient What brought you back to the hospital? Dizziness/Syncope When did you start having problems after discharge? 3 days or less Did you reach out to your provider before coming to the [facility]/Clinic/or ED? No If no, what was the reason you did not call your provider? Charlotte needed to be seen and went to ED or urgent care on my own Did you/caregiver receive education re: discharge needs (ie: teaching on L/D/A, injection teaching, medications, home health, etc.) Yes Did you or your caregiver have the opportunity to provide a demonstration back to a health care provider on how to care for yourself at discharge? Yes Were you sent home on new medications? No Did someone review and provide education about your medications with you/caregiver prior to discharge? Yes Did you/caregiver understand how to take all your medications? Yes Did someone review your final discharge instructions (After Visit Summary) with you/caregiver at your last discharge? Yes Did you/caregiver understand your discharge instructions and how to take care of yourself at home? Yes Who helped you after discharge? Spouse/significant other Were Services arranged prior to discharge? Yes What services were arranged? (FU appts) Was a hospital follow up appointment scheduled for you upon discharge? Yes Did you attend? No What was the primary reason you did not attend? Admitted before appointment was due Did you receive a post hospital follow up phone call? No Would one have been helpful? No Quality Was this hospitalization related to a potential discharge planning gap? No Hall Tender 30 Day Initial Assessment: Chart reviewed in [facility]. Patient has had an initial assessment completed within the past 30 days. Please refer to assessment completed on 12/04 by hospice case manager GERONIMO. news operations manager met with patient/family. Explained role and function of Hall Tender in multidisciplinary team. Contact number provided for questions. Previous initial assessment reviewed with patient/family for accuracy and any changes since last assessment. Patient confirms no changes in assessment / Patient provided the following updates since last assessment: Charlotte very dizzy and lightheaded and returned for help Reason for admission: Charlotte ill Anticipated discharge disposition: home Patient Goals for Discharge: pain free Final plan will be determined closer to discharge, pending therapy and medical team recommendations. Patient/family verbalized understanding and agreement with the plan of care. Patient/family have no questions at this time. news operations manager will continue to follow patient with multidisciplinary team for ongoing assessment of needs and for discharge planning. Medical team updated. Case Management assessed patient and determined to be high risk for readmission. Case Management will assist in discharge planning. Notes to follow. Monik Gray BA RN Rounding Nurse/Hall Tender [facility] documented in this encounter [facility] Work Phone: 12-07-2023 History of Presen t illness Narrative 12/07/23 1023 Referral Information Arrived From home or self-care Final Discharge Planning Discharge Disposition Home CM/SW AVS Portion Completed Yes Plan Plan home with PCP and ortho FU Patient/Family In Agreement With Plan yes Transport Request Mode of Transfer Private Vehicle Angella ask about a cane. Informed him of the [employer] supply room. He verbalized understanding and reports he has access to canes, walking sticks, 3 wheeled scooter that goes about 40 mph . Reminded him of upcoming ortho appointments and MH resources should he need/choose. Monik Gray BA, RN Rounding Nurse/Hall Tender [facility] Medicine / Inpatient Progress Note 12/06/23 Angella Fernandez 1970 [id number] Assessment/Plan: Angella Fernandez is a 53 y.o. male with a MMP including alcohol use, hypertension, hyperlipidemia and admission to 12/03-12/05/2023 for 1 month history of worsening right hip pain acutely worsened few days prior which prompted the hospitalization with a hospital course complicated by hyponatremia. Patient was discharged on home diclofenac and Flexeril however re-presented to the ED 12/06/2023 with restlessness, sweatiness and nausea and concerned for alcohol withdrawal. Found to have anion gap metabolic acidosis. Hypokalemia: In the setting of nausea and vomiting. K 3.4. Replaced as discussed. Recheck. Right hip pain: With inability to ambulate due to pain on arrival. Secondary to right hip osteoarthritis with degenerative changes and questionable osteonecrosis. Ambulating well after receiving morphine. Continue lidocaine patch and Flexeril. Oxycodone started. Has a follow-up appointment with orthopedic 12/11/2023 with likely need for MRI. Still with significant pain 12/05, add a few doses of PRN toradol which did help during last admit. Suspected alcohol withdrawal: Had a lengthy discussion with the patient regarding his alcohol use. Patient admitted to having issue with occasional binge drinking due to right hip pain. Denied daily alcohol intake in the last 2 months and was able to go weeks without drinking. He also reported being concerned about going into alcohol withdrawal after leaving the hospital 12/05/2023 and admitted to drinking 5 whiskeys. Described sweatiness and restlessness. Slightly tachycardic on admit. Started on CIWA protocol and IVF. Discussed risks vs benefits of phenobarb taper, but pt does not want to stay in hospital for entire course if possible. Monitor closely. Dehydration: Noted clinically with dry mucosal membrane and tachycardia. IV hydration as discussed. AGMA: Likely 2/2 to n/v and poor oral intake and excessive volume loss. Admit Bicarb 11.0, anion gap 22.4. IVF given and now improved with normal bicarb. Lytes improving. Monitor. NSAIDs held. Protonix started. Elevated lipase: Possibly secondary to alcohol intake. At 476 on admit. No signs of pancreatitis/no abdominal tenderness. Trend. Presumed Gastritis: vs PUD. Secondary to NSAIDS and ETOH intake. All NSAIDS discontinued on admit. PPI. Healthy heart diet. Leukocytosis: Likely reactive secondary to above. At 16.67 on admit. Trend. HTN: Per history. Slightly hypertensive on admit. Amlodipine resumed. HLD: Per history. Statin resumed. Code Status: Full code VTE Prophylaxis: SCD Current living situation: Home Expected disposition: Home Expected length of stay: less than 2 midnights Legal Guardian: No Subjective: Patient was discharged yesterday by me and represented to the ED for concern that he was having alcohol withdrawal and for persistent hip pain. I reviewed chart for all vitals, diagnostic data, and erp consultant notes. I discussed patient's care with RN, hotel housekeeper, Pharmacy, PT, Hall Tender, and Silver Wrapper. Bp has been elevated. VSS otherwise, afebrile. Evaluated pt at bedside. He is resting comfortably in bed. Still with right hip pain without significant change, possibly some improvement. Pain much worse with movement. Does not appear to be in alcohol withdrawal. Reports poor sleep. Denies tremors, hallucinations, confusion, headache, vision changes, palpitations, agitation, fevers, chills. No n/v today. Still with poor appetite. Does admit to taking his NSAIDs at home with alcohol and has not been eating much. Discussed risks vs benefits of phenobarb taper. Patient would prefer to hold off on phenobarb taper at this time is he is concerned about his ability to stay in the hospital for completion of the taper. Via joint decision making decided that we will continue CIWA for now. Afternoon labs pending which I will follow up on. Still pain with Physical Exam: BP (!) 173/107 (BP Location: Right arm, BP Position: Lying) Comment: Rn Notifed, Pt just walked to restroom Pulse 133 Temp 98.4 F (36.9 C) (Temporal) Resp 21 Ht 1.803 m (5' 11 ) Wt 95.1 kg (209 lb 10.5 oz) SpO2 94% BMI 29.24 kg/m Smoking Status Every Day General: appears stated age, in NAD Eyes: anicteric, EOMI ENT: neck supple, moist mucous membranes Cardiovascular: regular rate and rhythm, no peripheral edema Respiratory: clear to auscultation b/L; no wheezes/crackles Gastrointestinal: soft, non-distended Genitourinary: no suprapubic tenderness, no amaya in place Musculoskeletal: Right hip TTP and with any movement. no joint edema, no bony deformities Skin: warm, dry Neuro: alert and oriented x3 with no focal deficits Psych: mood appropriate Current Medications: amLODIPine 10 mg Oral Daily Atorvastatin 40 mg Oral Daily lidocaine 2 patch Transdermal Q24H LORazepam 1-4 mg Intravenous See admin instructions Or LORazepam 1-4 mg Oral See admin instructions Pantoprazole 40 mg Oral Daily Labs, Imaging, and Studies reviewed: Recent Labs 12/04/23 0938 12/05/23 0511 12/06/23 0205 WBC 13.07* 8.30 16.67* HGB 16.3 14.7 15.7 HCT 49.9 43.6 46.7 PLATELET 306 235 300 Recent Labs 12/04/23 0938 12/05/23 0500 12/05/23 0511 12/06/23 0205 SODIUM 148* -- 139 142 POTASSIUM 3.8 -- 3.5 3.4* CHLORIDE 112* -- 109 109 CO2 15.0* -- 25.0 11.0* BUN 18 -- 14 17 CREATSERUM 0.93 -- 0.59* 1.14 GFR 90 -- 151 71 GLUCOSE 95 -- 90 116* CALCIUM 10.1 -- 9.8 10.2 ALBUMIN 5.0 -- -- 4.6 PHOSPHORUS 4.0 -- 2.9 -- MAGNESIUM 1.8 1.8 -- -- Recent Labs 12/04/23 0938 12/06/23 0205 ALT 44 35 AST 51 45 ALKPHOS 113 120 BILITOTAL 2.9* 2.1* No results for input(s): INR in the last 72 hours. 12/06/23 0903 Patient Interview Type of Readmission Unplanned Who is interview with? Patient What brought you back to the hospital? Dizziness/Syncope When did you start having problems after discharge? 3 days or less Did you reach out to your provider before coming to the [facility]/Clinic/or ED? No If no, what was the reason you did not call your provider? [place] needed to be seen and went to ED or urgent care on my own Did you/caregiver receive education re: discharge needs (ie: teaching on L/D/A, injection teaching, medications, home health, etc.) Yes Did you or your caregiver have the opportunity to provide a demonstration back to a health care provider on how to care for yourself at discharge? Yes Were you sent home on new medications? No Did someone review and provide education about your medications with you/caregiver prior to discharge? Yes Did you/caregiver understand how to take all your medications? Yes Did someone review your final discharge instructions (After Visit Summary) with you/caregiver at your last discharge? Yes Did you/caregiver understand your discharge instructions and how to take care of yourself at home? Yes Who helped you after discharge? Spouse/significant other Were Services arranged prior to discharge? Yes What services were arranged? (FU appts) Was a hospital follow up appointment scheduled for you upon discharge? Yes Did you attend? No What was the primary reason you did not attend? Admitted before appointment was due Did you receive a post hospital follow up phone call? No Would one have been helpful? No Quality Was this hospitalization related to a potential discharge planning gap? No Hall Tender 30 Day Initial Assessment: Chart reviewed in [facility]. Patient has had an initial assessment completed within the past 30 days. Please refer to assessment completed on 12/04 by hospice case manager GERONIMO. news operations manager met with patient/family. Explained role and function of Hall Tender in multidisciplinary team. Contact number provided for questions. Previous initial assessment reviewed with patient/family for accuracy and any changes since last assessment. Patient confirms no changes in assessment / Patient provided the following updates since last assessment: Charlotte very dizzy and lightheaded and returned for help Reason for admission: [place] ill Anticipated discharge disposition: home Patient Goals for Discharge: pain free Final plan will be determined closer to discharge, pending therapy and medical team recommendations. Patient/family verbalized understanding and agreement with the plan of care. Patient/family have no questions at this time. news operations manager will continue to follow patient with multidisciplinary team for ongoing assessment of needs and for discharge planning. Medical team updated. Case Management assessed patient and determined to be high risk for readmission. Case Management will assist in discharge planning. Notes to follow. Monik Gray BA, RN Rounding Nurse/Hall Tender [facility] documented in this encounter [facility] Phone: 12-07-2023 Hospital Discharg e instructions Martha Lua MD - 12/07/2023 9:07 AM EDT Please keep your Tylenol use to <4000mg daily. Monik Gary RN - 12/06/2023 9:18 AM EST Quit Drinking You should quit drinking or significantly limit your alcohol intake. The alcohol can cause liver failure and bleeding in the stomach. Please call one of the following agencies for help: Alcoholic Anonymous Monik Gray RN - 12/06/2023 9:18 AM EST Cardiac-Very Low Sodium Limit your salt or sodium intake each day to between 1500 and 2000 mg to help manage high blood pressure and limit fluid build up if you have heart failure. Use of healthy fats such as . Monik Gray RN - 12/06/2023 9:19 AM EST Notify your provider or go to the nearest Emergency Department if you experience any of the following: Temperature greater than 101 Pain uncontrolled by medications, worsening pain or new pain Weight gain greater than 3 lbs in 48 hours Chest discomfort not relieved by 3 nitroglycerin tabs, 5 minutes apart (if prescribed by your physician). Shortness of breath, with or without chest discomfort Extreme dizziness or fainting Persistent vomiting or diarrhea The following attachments cannot be sent through Care Everywhere.Pain and Pain Control ([facility]) ([place]ese)Alcohol Withdrawal: General Info (Marshallese)acetaminophen and hydrocodone (Marshallese)documented in this encounter [facility] [employer] Phone: 12-07-2023 Hospital Discharg e instructions Martha Lua MD - 12/07/2023 9:07 AM EDT Please keep your Tylenol use to <4000mg daily. Monik Gray RN - 12/06/2023 9:18 AM EST Quit Drinking You should quit drinking or significantly limit your alcohol intake. The alcohol can cause liver failure and bleeding in the stomach. Please call one of the following agencies for help: Alcoh[employer] Anonymous Monik Gray RN - 12/06/2023 9:18 AM EST Cardiac-Very Low Sodium Limit your salt or sodium intake each day to between 1500 and 2000 mg to help manage high blood pressure and limit fluid build up if you have heart failure. Use of healthy fats such as . LAS Gray RN - 12/06/2023 9:19 AM EST Notify your provider or go to the nearest Emergency Department if you experience any of the following: Temperature greater than 101 Pain uncontrolled by medications, worsening pain or new pain Weight gain greater than 3 lbs in 48 hours Chest discomfort not relieved by 3 nitroglycerin tabs, 5 minutes apart (if prescribed by your physician). Shortness of breath, with or without chest discomfort Extreme dizziness or fainting Persistent vomiting or diarrhea The following attachments cannot be sent through Care Everywhere.[facility] ([facility]) ([place]ese)Alcohol Withdrawal: General Info (Marshallese)acetaminophen and hydrocodone (Marshallese)documented in this encounter [facility] Phone: 12-07-2023 Plan of care note Problem: Patient Care Overview Goal: Plan of Care Review Outcome: Progressing Goal: Individualization & Mutuality Outcome: Progressing Goal: Discharge Needs Assessment Outcome: Progressing Goal: Interdisciplinary Rounds/Family Conf Outcome: Progressing Problem: Dysphagia (Adult) Goal: Identify Related Risk Factors and Signs and Symptoms Description: Related risk factors and signs and symptoms are identified upon initiation of Human Response Clinical Practice Guideline (CPG) Outcome: Progressing Goal: Functional/Safe Swallow Description: Patient will demonstrate the desired outcomes by discharge/transition of care. Outcome: Progressing Goal: Compensatory Techniques to Improve Safety/Function with Swallowing Description: Patient will demonstrate the desired outcomes by discharge/transition of care. Outcome: Progressing Problem: Pain, Acute (Adult) Goal: Identify Related Risk Factors and Signs and Symptoms Description: Related risk factors and signs and symptoms are identified upon initiation of Human Response Clinical Practice Guideline (CPG) Outcome: Progressing Goal: Acceptable Pain Control/Comfort Level Description: Patient will demonstrate the desired outcomes by discharge/transition of care. Outcome: Progressing Problem: Mobility, Physical Impaired (Adult) Goal: Identify Related Risk Factors and Signs and Symptoms Description: Related risk factors and signs and symptoms are identified upon initiation of Human Response Clinical Practice Guideline (CPG) Outcome: Progressing Goal: Enhanced Mobility Skills Description: Patient will demonstrate the desired outcomes by discharge/transition of care. Outcome: Progressing Goal: Enhanced Functionality Ability Description: Patient will demonstrate the desired outcomes by discharge/transition of care. Outcome: Progressing Problem: Fall/Trauma/Injury Risk (Adult) Goal: Fall/Trauma/Injury Risk: Absence of Trauma/Injury/Falls Description: Patient will demonstrate the desired outcomes. Outcome: Progressing Goal: Knowledge of risk factors/behavior modification Description: Knowledge of risk factors/behavior modification for fall/injury prevention Outcome: Progressing Problem: Alcohol Withdrawal Acute, Risk/Actual (Adult) Goal: Signs and Symptoms of Listed Potential Problems Will be Absent, Minimized or Managed (Alcohol Withdrawal Acute, Risk/Actual) Description: Signs and symptoms of listed potential problems will be absent, minimized or managed by discharge/transition of care (reference Alcohol Withdrawal Acute, Risk/Actual (Adult) CPG). Outcome: Progressing [facility] 12-07-2023 Miscellaneous Notes Problem: Patient Care Overview Goal: Plan of Care Review Outcome: Progressing Goal: Individualization & Mutuality Outcome: Progressing Goal: Discharge Needs Assessment Outcome: Progressing Goal: Interdisciplinary Rounds/Family Conf Outcome: Progressing Problem: Dysphagia (Adult) Goal: Identify Related Risk Factors and Signs and Symptoms Description: Related risk factors and signs and symptoms are identified upon initiation of Human Response Clinical Practice Guideline (CPG) Outcome: Progressing Goal: Functional/Safe Swallow Description: Patient will demonstrate the desired outcomes by discharge/transition of care. Outcome: Progressing Goal: Compensatory Techniques to Improve Safety/Function with Swallowing Description: Patient will demonstrate the desired outcomes by discharge/transition of care. Outcome: Progressing Problem: Pain, Acute (Adult) Goal: Identify Related Risk Factors and Signs and Symptoms Description: Related risk factors and signs and symptoms are identified upon initiation of Human Response Clinical Practice Guideline (CPG) Outcome: Progressing Goal: Acceptable Pain Control/Comfort Level Description: Patient will demonstrate the desired outcomes by discharge/transition of care. Outcome: Progressing Problem: Mobility, Physical Impaired (Adult) Goal: Identify Related Risk Factors and Signs and Symptoms Description: Related risk factors and signs and symptoms are identified upon initiation of Human Response Clinical Practice Guideline (CPG) Outcome: Progressing Goal: Enhanced Mobility Skills Description: Patient will demonstrate the desired outcomes by discharge/transition of care. Outcome: Progressing Goal: Enhanced Functionality Ability Description: Patient will demonstrate the desired outcomes by discharge/transition of care. Outcome: Progressing Problem: Fall/Trauma/Injury Risk (Adult) Goal: Fall/Trauma/Injury Risk: Absence of Trauma/Injury/Falls Description: Patient will demonstrate the desired outcomes. Outcome: Progressing Goal: Knowledge of risk factors/behavior modification Description: Knowledge of risk factors/behavior modification for fall/injury prevention Outcome: Progressing Problem: Alcohol Withdrawal Acute, Risk/Actual (Adult) Goal: Signs and Symptoms of Listed Potential Problems Will be Absent, Minimized or Managed (Alcohol Withdrawal Acute, Risk/Actual) Description: Signs and symptoms of listed potential problems will be absent, minimized or managed by discharge/transition of care (reference Alcohol Withdrawal Acute, Risk/Actual (Adult) CPG). Outcome: Progressing Problem: Patient Care Overview Goal: Plan of Care Review Outcome: Progressing Goal: Individualization & Mutuality Outcome: Progressing Goal: Discharge Needs Assessment Outcome: Progressing Goal: Interdisciplinary Rounds/Family Conf Outcome: Progressing Problem: Dysphagia (Adult) Goal: Identify Related Risk Factors and Signs and Symptoms Description: Related risk factors and signs and symptoms are identified upon initiation of Human Response Clinical Practice Guideline (CPG) Outcome: Progressing Goal: Functional/Safe Swallow Description: Patient will demonstrate the desired outcomes by discharge/transition of care. Outcome: Progressing Goal: Compensatory Techniques to Improve Safety/Function with Swallowing Description: Patient will demonstrate the desired outcomes by discharge/transition of care. Outcome: Progressing Problem: Pain, Acute (Adult) Goal: Identify Related Risk Factors and Signs and Symptoms Description: Related risk factors and signs and symptoms are identified upon initiation of Human Response Clinical Practice Guideline (CPG) Outcome: Progressing Goal: Acceptable Pain Control/Comfort Level Description: Patient will demonstrate the desired outcomes by discharge/transition of care. Outcome: Progressing Problem: Mobility, Physical Impaired (Adult) Goal: Identify Related Risk Factors and Signs and Symptoms Description: Related risk factors and signs and symptoms are identified upon initiation of Human Response Clinical Practice Guideline (CPG) Outcome: Progressing Goal: Enhanced Mobility Skills Description: Patient will demonstrate the desired outcomes by discharge/transition of care. Outcome: Progressing Goal: Enhanced Functionality Ability Description: Patient will demonstrate the desired outcomes by discharge/transition of care. Outcome: Progressing Problem: Fall/Trauma/Injury Risk (Adult) Goal: Fall/Trauma/Injury Risk: Absence of Trauma/Injury/Falls Description: Patient will demonstrate the desired outcomes. Outcome: Progressing Goal: Knowledge of risk factors/behavior modification Description: Knowledge of risk factors/behavior modification for fall/injury prevention Outcome: Progressing Problem: Alcohol Withdrawal Acute, Risk/Actual (Adult) Goal: Signs and Symptoms of Listed Potential Problems Will be Absent, Minimized or Managed (Alcohol Withdrawal Acute, Risk/Actual) Description: Signs and symptoms of listed potential problems will be absent, minimized or managed by discharge/transition of care (reference Alcohol Withdrawal Acute, Risk/Actual (Adult) CPG). Outcome: Progressing Problem: Patient Care Overview Goal: Plan of Care Review Outcome: Progressing Goal: Individualization & Mutuality Outcome: Progressing Goal: Discharge Needs Assessment Outcome: Progressing Goal: Interdisciplinary Rounds/Family Conf Outcome: Progressing Problem: Dysphagia (Adult) Goal: Identify Related Risk Factors and Signs and Symptoms Description: Related risk factors and signs and symptoms are identified upon initiation of Human Response Clinical Practice Guideline (CPG) Outcome: Progressing Goal: Functional/Safe Swallow Description: Patient will demonstrate the desired outcomes by discharge/transition of care. Outcome: Progressing Goal: Compensatory Techniques to Improve Safety/Function with Swallowing Description: Patient will demonstrate the desired outcomes by discharge/transition of care. Outcome: Progressing Problem: Pain, Acute (Adult) Goal: Identify Related Risk Factors and Signs and Symptoms Description: Related risk factors and signs and symptoms are identified upon initiation of Human Response Clinical Practice Guideline (CPG) Outcome: Progressing Goal: Acceptable Pain Control/Comfort Level Description: Patient will demonstrate the desired outcomes by discharge/transition of care. Outcome: Progressing Problem: Mobility, Physical Impaired (Adult) Goal: Identify Related Risk Factors and Signs and Symptoms Description: Related risk factors and signs and symptoms are identified upon initiation of Human Response Clinical Practice Guideline (CPG) Outcome: Progressing Goal: Enhanced Mobility Skills Description: Patient will demonstrate the desired outcomes by discharge/transition of care. Outcome: Progressing Goal: Enhanced Functionality Ability Description: Patient will demonstrate the desired outcomes by discharge/transition of care. Outcome: Progressing Problem: Fall/Trauma/Injury Risk (Adult) Goal: Fall/Trauma/Injury Risk: Absence of Trauma/Injury/Falls Description: Patient will demonstrate the desired outcomes. Outcome: Progressing Goal: Knowledge of risk factors/behavior modification Description: Knowledge of risk factors/behavior modification for fall/injury prevention Outcome: Progressing Problem: Alcohol Withdrawal Acute, Risk/Actual (Adult) Goal: Signs and Symptoms of Listed Potential Problems Will be Absent, Minimized or Managed (Alcohol Withdrawal Acute, Risk/Actual) Description: Signs and symptoms of listed potential problems will be absent, minimized or managed by discharge/transition of care (reference Alcohol Withdrawal Acute, Risk/Actual (Adult) CPG). Outcome: Progressing Problem: Patient Care Overview Goal: Plan of Care Review Outcome: Progressing Goal: Individualization & Mutuality Outcome: Progressing Goal: Discharge Needs Assessment Outcome: Progressing Goal: Interdisciplinary Rounds/Family Conf Outcome: Progressing Problem: Dysphagia (Adult) Goal: Identify Related Risk Factors and Signs and Symptoms Description: Related risk factors and signs and symptoms are identified upon initiation of Human Response Clinical Practice Guideline (CPG) Outcome: Progressing Goal: Functional/Safe Swallow Description: Patient will demonstrate the desired outcomes by discharge/transition of care. Outcome: Progressing Goal: Compensatory Techniques to Improve Safety/Function with Swallowing Description: Patient will demonstrate the desired outcomes by discharge/transition of care. Outcome: Progressing Problem: Pain, Acute (Adult) Goal: Identify Related Risk Factors and Signs and Symptoms Description: Related risk factors and signs and symptoms are identified upon initiation of Human Response Clinical Practice Guideline (CPG) Outcome: Progressing Goal: Acceptable Pain Control/Comfort Level Description: Patient will demonstrate the desired outcomes by discharge/transition of care. Outcome: Progressing Problem: Mobility, Physical Impaired (Adult) Goal: Identify Related Risk Factors and Signs and Symptoms Description: Related risk factors and signs and symptoms are identified upon initiation of Human Response Clinical Practice Guideline (CPG) Outcome: Progressing Goal: Enhanced Mobility Skills Description: Patient will demonstrate the desired outcomes by discharge/transition of care. Outcome: Progressing Goal: Enhanced Functionality Ability Description: Patient will demonstrate the desired outcomes by discharge/transition of care. Outcome: Progressing Problem: Fall/Trauma/Injury Risk (Adult) Goal: Fall/Trauma/Injury Risk: Absence of Trauma/Injury/Falls Description: Patient will demonstrate the desired outcomes. Outcome: Progressing Goal: Knowledge of risk factors/behavior modification Description: Knowledge of risk factors/behavior modification for fall/injury prevention Outcome: Progressing Problem: Alcohol Withdrawal Acute, Risk/Actual (Adult) Goal: Signs and Symptoms of Listed Potential Problems Will be Absent, Minimized or Managed (Alcohol Withdrawal Acute, Risk/Actual) Description: Signs and symptoms of listed potential problems will be absent, minimized or managed by discharge/transition of care (reference Alcohol Withdrawal Acute, Risk/Actual (Adult) CPG). Outcome: Progressing documented in this encounter [facility] Phone: 12-07-2023 Miscellaneous Notes Problem: Patient Care Overview Goal: Plan of Care Review Outcome: Progressing Goal: Individualization & Mutuality Outcome: Progressing Goal: Discharge Needs Assessment Outcome: Progressing Goal: Interdisciplinary Rounds/Family Conf Outcome: Progressing Problem: Dysphagia (Adult) Goal: Identify Related Risk Factors and Signs and Symptoms Description: Related risk factors and signs and symptoms are identified upon initiation of Human Response Clinical Practice Guideline (CPG) Outcome: Progressing Goal: Functional/Safe Swallow Description: Patient will demonstrate the desired outcomes by discharge/transition of care. Outcome: Progressing Goal: Compensatory Techniques to Improve Safety/Function with Swallowing Description: Patient will demonstrate the desired outcomes by discharge/transition of care. Outcome: Progressing Problem: Pain, Acute (Adult) Goal: Identify Related Risk Factors and Signs and Symptoms Description: Related risk factors and signs and symptoms are identified upon initiation of Human Response Clinical Practice Guideline (CPG) Outcome: Progressing Goal: Acceptable Pain Control/Comfort Level Description: Patient will demonstrate the desired outcomes by discharge/transition of care. Outcome: Progressing Problem: Mobility, Physical Impaired (Adult) Goal: Identify Related Risk Factors and Signs and Symptoms Description: Related risk factors and signs and symptoms are identified upon initiation of Human Response Clinical Practice Guideline (CPG) Outcome: Progressing Goal: Enhanced Mobility Skills Description: Patient will demonstrate the desired outcomes by discharge/transition of care. Outcome: Progressing Goal: Enhanced Functionality Ability Description: Patient will demonstrate the desired outcomes by discharge/transition of care. Outcome: Progressing Problem: Fall/Trauma/Injury Risk (Adult) Goal: Fall/Trauma/Injury Risk: Absence of Trauma/Injury/Falls Description: Patient will demonstrate the desired outcomes. Outcome: Progressing Goal: Knowledge of risk factors/behavior modification Description: Knowledge of risk factors/behavior modification for fall/injury prevention Outcome: Progressing Problem: Alcohol Withdrawal Acute, Risk/Actual (Adult) Goal: Signs and Symptoms of Listed Potential Problems Will be Absent, Minimized or Managed (Alcohol Withdrawal Acute, Risk/Actual) Description: Signs and symptoms of listed potential problems will be absent, minimized or managed by discharge/transition of care (reference Alcohol Withdrawal Acute, Risk/Actual (Adult) CPG). Outcome: Progressing Problem: Patient Care Overview Goal: Plan of Care Review Outcome: Progressing Goal: Individualization & Mutuality Outcome: Progressing Goal: Discharge Needs Assessment Outcome: Progressing Goal: Interdisciplinary Rounds/Family Conf Outcome: Progressing Problem: Dysphagia (Adult) Goal: Identify Related Risk Factors and Signs and Symptoms Description: Related risk factors and signs and symptoms are identified upon initiation of Human Response Clinical Practice Guideline (CPG) Outcome: Progressing Goal: Functional/Safe Swallow Description: Patient will demonstrate the desired outcomes by discharge/transition of care. Outcome: Progressing Goal: Compensatory Techniques to Improve Safety/Function with Swallowing Description: Patient will demonstrate the desired outcomes by discharge/transition of care. Outcome: Progressing Problem: Pain, Acute (Adult) Goal: Identify Related Risk Factors and Signs and Symptoms Description: Related risk factors and signs and symptoms are identified upon initiation of Human Response Clinical Practice Guideline (CPG) Outcome: Progressing Goal: Acceptable Pain Control/Comfort Level Description: Patient will demonstrate the desired outcomes by discharge/transition of care. Outcome: Progressing Problem: Mobility, Physical Impaired (Adult) Goal: Identify Related Risk Factors and Signs and Symptoms Description: Related risk factors and signs and symptoms are identified upon initiation of Human Response Clinical Practice Guideline (CPG) Outcome: Progressing Goal: Enhanced Mobility Skills Description: Patient will demonstrate the desired outcomes by discharge/transition of care. Outcome: Progressing Goal: Enhanced Functionality Ability Description: Patient will demonstrate the desired outcomes by discharge/transition of care. Outcome: Progressing Problem: Fall/Trauma/Injury Risk (Adult) Goal: Fall/Trauma/Injury Risk: Absence of Trauma/Injury/Falls Description: Patient will demonstrate the desired outcomes. Outcome: Progressing Goal: Knowledge of risk factors/behavior modification Description: Knowledge of risk factors/behavior modification for fall/injury prevention Outcome: Progressing Problem: Alcohol Withdrawal Acute, Risk/Actual (Adult) Goal: Signs and Symptoms of Listed Potential Problems Will be Absent, Minimized or Managed (Alcohol Withdrawal Acute, Risk/Actual) Description: Signs and symptoms of listed potential problems will be absent, minimized or managed by discharge/transition of care (reference Alcohol Withdrawal Acute, Risk/Actual (Adult) CPG). Outcome: Progressing Problem: Patient Care Overview Goal: Plan of Care Review Outcome: Progressing Goal: Individualization & Mutuality Outcome: Progressing Goal: Discharge Needs Assessment Outcome: Progressing Goal: Interdisciplinary Rounds/Family Conf Outcome: Progressing Problem: Dysphagia (Adult) Goal: Identify Related Risk Factors and Signs and Symptoms Description: Related risk factors and signs and symptoms are identified upon initiation of Human Response Clinical Practice Guideline (CPG) Outcome: Progressing Goal: Functional/Safe Swallow Description: Patient will demonstrate the desired outcomes by discharge/transition of care. Outcome: Progressing Goal: Compensatory Techniques to Improve Safety/Function with Swallowing Description: Patient will demonstrate the desired outcomes by discharge/transition of care. Outcome: Progressing Problem: Pain, Acute (Adult) Goal: Identify Related Risk Factors and Signs and Symptoms Description: Related risk factors and signs and symptoms are identified upon initiation of Human Response Clinical Practice Guideline (CPG) Outcome: Progressing Goal: Acceptable Pain Control/Comfort Level Description: Patient will demonstrate the desired outcomes by discharge/transition of care. Outcome: Progressing Problem: Mobility, Physical Impaired (Adult) Goal: Identify Related Risk Factors and Signs and Symptoms Description: Related risk factors and signs and symptoms are identified upon initiation of Human Response Clinical Practice Guideline (CPG) Outcome: Progressing Goal: Enhanced Mobility Skills Description: Patient will demonstrate the desired outcomes by discharge/transition of care. Outcome: Progressing Goal: Enhanced Functionality Ability Description: Patient will demonstrate the desired outcomes by discharge/transition of care. Outcome: Progressing Problem: Fall/Trauma/Injury Risk (Adult) Goal: Fall/Trauma/Injury Risk: Absence of Trauma/Injury/Falls Description: Patient will demonstrate the desired outcomes. Outcome: Progressing Goal: Knowledge of risk factors/behavior modification Description: Knowledge of risk factors/behavior modification for fall/injury prevention Outcome: Progressing Problem: Alcohol Withdrawal Acute, Risk/Actual (Adult) Goal: Signs and Symptoms of Listed Potential Problems Will be Absent, Minimized or Managed (Alcohol Withdrawal Acute, Risk/Actual) Description: Signs and symptoms of listed potential problems will be absent, minimized or managed by discharge/transition of care (reference Alcohol Withdrawal Acute, Risk/Actual (Adult) CPG). Outcome: Progressing Problem: Patient Care Overview Goal: Plan of Care Review Outcome: Progressing Goal: Individualization & Mutuality Outcome: Progressing Goal: Discharge Needs Assessment Outcome: Progressing Goal: Interdisciplinary Rounds/Family Conf Outcome: Progressing Problem: Dysphagia (Adult) Goal: Identify Related Risk Factors and Signs and Symptoms Description: Related risk factors and signs and symptoms are identified upon initiation of Human Response Clinical Practice Guideline (CPG) Outcome: Progressing Goal: Functional/Safe Swallow Description: Patient will demonstrate the desired outcomes by discharge/transition of care. Outcome: Progressing Goal: Compensatory Techniques to Improve Safety/Function with Swallowing Description: Patient will demonstrate the desired outcomes by discharge/transition of care. Outcome: Progressing Problem: Pain, Acute (Adult) Goal: Identify Related Risk Factors and Signs and Symptoms Description: Related risk factors and signs and symptoms are identified upon initiation of Human Response Clinical Practice Guideline (CPG) Outcome: Progressing Goal: Acceptable Pain Control/Comfort Level Description: Patient will demonstrate the desired outcomes by discharge/transition of care. Outcome: Progressing Problem: Mobility, Physical Impaired (Adult) Goal: Identify Related Risk Factors and Signs and Symptoms Description: Related risk factors and signs and symptoms are identified upon initiation of Human Response Clinical Practice Guideline (CPG) Outcome: Progressing Goal: Enhanced Mobility Skills Description: Patient will demonstrate the desired outcomes by discharge/transition of care. Outcome: Progressing Goal: Enhanced Functionality Ability Description: Patient will demonstrate the desired outcomes by discharge/transition of care. Outcome: Progressing Problem: Fall/Trauma/Injury Risk (Adult) Goal: Fall/Trauma/Injury Risk: Absence of Trauma/Injury/Falls Description: Patient will demonstrate the desired outcomes. Outcome: Progressing Goal: Knowledge of risk factors/behavior modification Description: Knowledge of risk factors/behavior modification for fall/injury prevention Outcome: Progressing Problem: Alcohol Withdrawal Acute, Risk/Actual (Adult) Goal: Signs and Symptoms of Listed Potential Problems Will be Absent, Minimized or Managed (Alcohol Withdrawal Acute, Risk/Actual) Description: Signs and symptoms of listed potential problems will be absent, minimized or managed by discharge/transition of care (reference Alcohol Withdrawal Acute, Risk/Actual (Adult) CPG). Outcome: Progressing documented in this encounter [employer] Phone: 12-06-2023 Plan of care note Problem: Patient Care Overview Goal: Plan of Care Review Outcome: Progressing Goal: Individualization & Mutuality Outcome: Progressing Goal: Discharge Needs Assessment Outcome: Progressing Goal: Interdisciplinary Rounds/Family Conf Outcome: Progressing Problem: Dysphagia (Adult) Goal: Identify Related Risk Factors and Signs and Symptoms Description: Related risk factors and signs and symptoms are identified upon initiation of Human Response Clinical Practice Guideline (CPG) Outcome: Progressing Goal: Functional/Safe Swallow Description: Patient will demonstrate the desired outcomes by discharge/transition of care. Outcome: Progressing Goal: Compensatory Techniques to Improve Safety/Function with Swallowing Description: Patient will demonstrate the desired outcomes by discharge/transition of care. Outcome: Progressing Problem: Pain, Acute (Adult) Goal: Identify Related Risk Factors and Signs and Symptoms Description: Related risk factors and signs and symptoms are identified upon initiation of Human Response Clinical Practice Guideline (CPG) Outcome: Progressing Goal: Acceptable Pain Control/Comfort Level Description: Patient will demonstrate the desired outcomes by discharge/transition of care. Outcome: Progressing Problem: Mobility, Physical Impaired (Adult) Goal: Identify Related Risk Factors and Signs and Symptoms Description: Related risk factors and signs and symptoms are identified upon initiation of Human Response Clinical Practice Guideline (CPG) Outcome: Progressing Goal: Enhanced Mobility Skills Description: Patient will demonstrate the desired outcomes by discharge/transition of care. Outcome: Progressing Goal: Enhanced Functionality Ability Description: Patient will demonstrate the desired outcomes by discharge/transition of care. Outcome: Progressing Problem: Fall/Trauma/Injury Risk (Adult) Goal: Fall/Trauma/Injury Risk: Absence of Trauma/Injury/Falls Description: Patient will demonstrate the desired outcomes. Outcome: Progressing Goal: Knowledge of risk factors/behavior modification Description: Knowledge of risk factors/behavior modification for fall/injury prevention Outcome: Progressing Problem: Alcohol Withdrawal Acute, Risk/Actual (Adult) Goal: Signs and Symptoms of Listed Potential Problems Will be Absent, Minimized or Managed (Alcohol Withdrawal Acute, Risk/Actual) Description: Signs and symptoms of listed potential problems will be absent, minimized or managed by discharge/transition of care (reference Alcohol Withdrawal Acute, Risk/Actual (Adult) CPG). Outcome: Progressing [facility] [employer] Phone: 12-06-2023 Plan of care note Problem: Patient Care Overview Goal: Plan of Care Review Outcome: Progressing Goal: Individualization & Mutuality Outcome: Progressing Goal: Discharge Needs Assessment Outcome: Progressing Goal: Interdisciplinary Rounds/Family Conf Outcome: Progressing Problem: Dysphagia (Adult) Goal: Identify Related Risk Factors and Signs and Symptoms Description: Related risk factors and signs and symptoms are identified upon initiation of Human Response Clinical Practice Guideline (CPG) Outcome: Progressing Goal: Functional/Safe Swallow Description: Patient will demonstrate the desired outcomes by discharge/transition of care. Outcome: Progressing Goal: Compensatory Techniques to Improve Safety/Function with Swallowing Description: Patient will demonstrate the desired outcomes by discharge/transition of care. Outcome: Progressing Problem: Pain, Acute (Adult) Goal: Identify Related Risk Factors and Signs and Symptoms Description: Related risk factors and signs and symptoms are identified upon initiation of Human Response Clinical Practice Guideline (CPG) Outcome: Progressing Goal: Acceptable Pain Control/Comfort Level Description: Patient will demonstrate the desired outcomes by discharge/transition of care. Outcome: Progressing Problem: Mobility, Physical Impaired (Adult) Goal: Identify Related Risk Factors and Signs and Symptoms Description: Related risk factors and signs and symptoms are identified upon initiation of Human Response Clinical Practice Guideline (CPG) Outcome: Progressing Goal: Enhanced Mobility Skills Description: Patient will demonstrate the desired outcomes by discharge/transition of care. Outcome: Progressing Goal: Enhanced Functionality Ability Description: Patient will demonstrate the desired outcomes by discharge/transition of care. Outcome: Progressing Problem: Fall/Trauma/Injury Risk (Adult) Goal: Fall/Trauma/Injury Risk: Absence of Trauma/Injury/Falls Description: Patient will demonstrate the desired outcomes. Outcome: Progressing Goal: Knowledge of risk factors/behavior modification Description: Knowledge of risk factors/behavior modification for fall/injury prevention Outcome: Progressing Problem: Alcohol Withdrawal Acute, Risk/Actual (Adult) Goal: Signs and Symptoms of Listed Potential Problems Will be Absent, Minimized or Managed (Alcohol Withdrawal Acute, Risk/Actual) Description: Signs and symptoms of listed potential problems will be absent, minimized or managed by discharge/transition of care (reference Alcohol Withdrawal Acute, Risk/Actual (Adult) CPG). Outcome: Progressing [facility] [employer] Phone: 12-06-2023 History and physical note [facility] / History and Physical Note 12/06/23 Angella Fernandez 1970 [id number] Assessment/Plan: Angella Fernandez is a 53 y.o. male with a PMH of alcohol use, hypertension, hyperlipidemia and admission to 12/03-12/05/2023 for 1 month history of worsening right hip pain acutely worsened few days prior which prompted the hospitalization with a hospital course complicated by hyponatremia. Patient was discharged on diclofenac and Flexeril however re-presented to the ED 12/06/2023 with restlessness, sweatiness and nausea. Found to have anion gap metabolic acidosis. AGMA: Likely secondary to nausea, vomiting and poor oral intake and excessive volume loss. Bicarb 11.0, anion gap 22.4. S/P1 L normal saline bolus in the ED, an additional 1 L normal saline bolus ordered followed by D5 normal saline with 20 of K and 2 amps of bicarb ordered. Monitor heart rate, intake and output. Repeat labs in 6 hours. NSAIDs held. Protonix started. Dehydration: Noted clinically with dry mucosal membrane and tachycardia. IV hydration as discussed. Hypokalemia: In the setting of nausea and vomiting. K 3.4. Replaced as discussed. Recheck. Suspected alcohol withdrawal: Had a lengthy discussion with the patient regarding his alcohol use. Patient admitted to having issue with occasional binge drinking due to right hip pain. Denied daily alcohol intake in the last 2 months and was able to go weeks without drinking. He also reported being concerned about going into alcohol withdrawal after leaving the hospital 12/05/2023 and admitted to drinking 5 whiskeys. Described sweatiness and restlessness. Noted to be slightly tachycardic on admit. Started on CIWA protocol and aggressive hydration. Doubt he will need any form of taper dosing for his alcohol withdrawal. Banana Bag. Monitor closely. Elevated lipase: Possibly secondary to alcohol intake. At 476 on admit. No signs of pancreatitis/no abdominal tenderness. Trend. Presumed Gastritis: vs PUD. Secondary to NSAIDS and ETOH intake. All NSAIDS discontinued on admit. PPI. Healthy heart diet. Leukocytosis: Likely reactive secondary to above. At 16.67 on admit. Trend. Right hip pain: With inability to ambulate due to pain on arrival. Secondary to right hip osteoarthritis with degenerative changes and questionable osteonecrosis. Ambulating well after receiving morphine. Continue lidocaine patch and Flexeril. Oxycodone started. Has a follow-up appointment with orthopedic 12/11/2023 with likely need for MRI. NSAIDs held. HTN: Per history. Slightly hypertensive on admit. Amlodipine resumed. HLD: Per history. Statin resumed. Code Status: Full code VTE Prophylaxis: SCD Current living situation: Home Expected disposition: Home Expected length of stay: less than 2 midnights Legal Guardian: No Chief Complaint: Right hip Pain History of Present Illness: Angella Fernandez is a 53 y.o. male with a PMH of alcohol use, hypertension, hyperlipidemia and admission to 12/03-12/05/2023 for 1 month history of worsening right hip pain acutely worsened few days prior which prompted the hospitalization with a hospital course complicated by hyponatremia. Patient was discharged on diclofenac and Flexeril however re-presented to the ED 12/06/2023 with restlessness, sweatiness and nausea. Patient reported that he has been struggling with right hip pain for the last approximately 4 weeks for which she was seen previously at the pain clinic and received steroid injection as well as steroid tablets however he continued to have pain. Patient reported treating his pain with alcohol and occasionally binge drinking as many as 10 whiskeys daily for approximately 2-3 days. Continued to have pain which prompted his recent hospitalization. Underwent right pelvis x-ray 12/04/2023 which showed worsening degenerative changes and questionable osteonecrosis. Orthopedic surgery recommended outpatient follow-up and likely need for MRI. Patient upon leaving the hospital developed pain again which was uncontrolled with diclofenac and Flexeril as well as lidocaine patches. He also reported developing nausea after taking diclofenac. Few hours later the patient failed sweaty and restless and was worried that he might be going into alcohol withdrawal and therefore started drinking again and reported 5 whiskeys prior to arrival. On arrival to the ED, the patient was noted to be slightly hypertensive and tachycardic with heart rate over 120 otherwise afebrile hemodynamically stable. Basic laboratory workup obtained on arrival and was significant for K 3.4, bicarb 11.0. WBC 16.67. Anion gap 22.4. ROS: 10 systems were reviewed and negative,except as noted above Past Medical, Surgical, Social, Family History: Past Medical History: Diagnosis Date Alcohol withdrawal seizures Bradycardia COVID-19 09/2021 Essential hypertension, benign Migraine Osteoarthritis 09/2023 Right hip Spondylosis, cervical Past Surgical History: Procedure Laterality Date ORCHIECTOMY LAPAROSCOPIC TONSILLECTOMY Social History Socioeconomic History Marital status: Spouse name: Not on file Number of children: Not on file Years of education: Not on file Highest education level: Not on file Occupational History Not on file Tobacco Use Smoking status: Every Day Current packs/day: 0.50 Types: Cigarettes Smokeless tobacco: Never Tobacco comments: quit 2013 Vaping Use Vaping status: Never Used Substance and Sexual Activity Alcohol use: Yes Alcohol/week: 3.0 standard drinks of alcohol Types: 3 Shots of liquor per week Comment: Hx of binge drinking/withdrawal/seizures Drug use: Not Currently Types: Marijuana Sexual activity: Not on file Other Topics Concern Not on file Social History Narrative Not on file Social Determinants of Health Financial Resource Strain: Not on file Food Insecurity: No Food Insecurity (12/06/2023) Hunger Vital Sign Worried About Running Out of Food in the Last Year: Never true Ran Out of Food in the Last Year: Never true Transportation Needs: No Transportation Needs (12/06/2023) PRAPARE - Transportation Lack of Transportation (Medical): No Lack of Transportation (Non-Medical): No Physical Activity: Not on file Stress: Not on file Social Connections: Not on file Intimate Partner Violence: Not At Risk (12/06/2023) Humiliation, Afraid, Rape, and Kick questionnaire Fear of Current or Ex-Partner: No Emotionally Abused: No Physically Abused: No Sexually Abused: No Housing Stability: High Risk (12/06/2023) Housing Stability Vital Sign Unable to Pay for Housing in the Last Year: No Number of Places Lived in the Last Year: 1 Unstable Housing in the Last Year: Yes Family History Problem Relation Age of Onset Other - Specify Mother pancreatitis Liver Disease Father No known problems Sister No known problems Brother No known problems Brother No known problems Son Current Medications: Medications Prior to Admission Medication Sig Dispense Refill Last Dose amLODIPine 10 MG tablet TAKE 1 TABLET BY MOUTH DAILY 30 tablet 2 Atorvastatin 40 MG tablet Take 1 tablet by mouth daily. (Patient not taking: Reported on 12/04/2023) 30 tablet 2 Cyclobenzaprine 10 MG tablet Take 1 tablet by mouth at bedtime as needed for Muscle spasms. diclofenac EC [address] tablet Take 1 tablet by mouth 2 times daily as needed for Mild Pain or Moderate Pain. lidocaine 5 % Patch patch Place 2 patches on skin every 24 hours. Max of 12 hours of application then remove. (Patient taking differently: Place 2 patches on skin Every 24 hours as needed. Max of 12 hours of application then remove.) 20 patch 0 Multiple Vitamins-Minerals (Thera-M) tablet Take 1 tablet by mouth daily. 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, Pt just walked to restroom Pulse 120 Temp 98.4 F (36.9 C) (Temporal) Resp 15 Ht 1.803 m (5' 11 ) Wt 95.1 kg (209 lb 10.5 oz) SpO2 95% BMI 29.24 kg/m Smoking Status Every Day General: appears stated age, in NAD Eyes: anicteric, EOMI ENT: neck supple, moist mucous membranes Cardiovascular: regular rate and rhythm, no peripheral edema Respiratory: clear to auscultation b/L; no wheezes/crackles Gastrointestinal: soft, non-distended Genitourinary: no suprapubic tenderness, no amaya in place Musculoskeletal: no joint edema, no bony deformities Skin: warm, dry Neuro: alert and oriented x3 with no focal deficits Psych: mood appropriate Labs, Imaging, and Studies reviewed: Recent Labs 12/04/23 0938 12/05/23 0511 12/06/23 0205 WBC 13.07* 8.30 16.67* HGB 16.3 14.7 15.7 HCT 49.9 43.6 46.7 PLATELET 306 235 300 Recent Labs 12/04/23 0938 12/05/23 0500 12/05/23 0511 12/06/23 0205 SODIUM 148* -- 139 142 POTASSIUM 3.8 -- 3.5 3.4* CHLORIDE 112* -- 109 109 CO2 15.0* -- 25.0 11.0* BUN 18 -- 14 17 CREATSERUM 0.93 -- 0.59* 1.14 GFR 90 -- 151 71 GLUCOSE 95 -- 90 116* CALCIUM 10.1 -- 9.8 10.2 ALBUMIN 5.0 -- -- 4.6 PHOSPHORUS 4.0 -- 2.9 -- MAGNESIUM 1.8 1.8 -- -- Recent Labs 12/04/23 0938 12/06/23 0205 ALT 44 35 AST 51 45 ALKPHOS 113 120 BILITOTAL 2.9* 2.1* No results for input(s): INR in the last 72 hours. [facility] [employer] Phone: 12-06-2023 History and physical note [facility] / History and Physical Note 12/06/23 Angella Fernandez 1970 [id number] Assessment/Plan: Angella Fernandez is a 53 y.o. male with a PMH of alcohol use, hypertension, hyperlipidemia and admission to 12/03-12/05/2023 for 1 month history of worsening right hip pain acutely worsened few days prior which prompted the hospitalization with a hospital course complicated by hyponatremia. Patient was discharged on diclofenac and Flexeril however re-presented to the ED 12/06/2023 with restlessness, sweatiness and nausea. Found to have anion gap metabolic acidosis. AGMA: Likely secondary to nausea, vomiting and poor oral intake and excessive volume loss. Bicarb 11.0, anion gap 22.4. S/P1 L normal saline bolus in the ED, an additional 1 L normal saline bolus ordered followed by D5 normal saline with 20 of K and 2 amps of bicarb ordered. Monitor heart rate, intake and output. Repeat labs in 6 hours. NSAIDs held. Protonix started. Dehydration: Noted clinically with dry mucosal membrane and tachycardia. IV hydration as discussed. Hypokalemia: In the setting of nausea and vomiting. K 3.4. Replaced as discussed. Recheck. Suspected alcohol withdrawal: Had a lengthy discussion with the patient regarding his alcohol use. Patient admitted to having issue with occasional binge drinking due to right hip pain. Denied daily alcohol intake in the last 2 months and was able to go weeks without drinking. He also reported being concerned about going into alcohol withdrawal after leaving the hospital 12/05/2023 and admitted to drinking 5 whiskeys. Described sweatiness and restlessness. Noted to be slightly tachycardic on admit. Started on CIWA protocol and aggressive hydration. Doubt he will need any form of taper dosing for his alcohol withdrawal. Banana Bag. Monitor closely. Elevated lipase: Possibly secondary to alcohol intake. At 476 on admit. No signs of pancreatitis/no abdominal tenderness. Trend. Presumed Gastritis: vs PUD. Secondary to NSAIDS and ETOH intake. All NSAIDS discontinued on admit. PPI. Healthy heart diet. Leukocytosis: Likely reactive secondary to above. At 16.67 on admit. Trend. Right hip pain: With inability to ambulate due to pain on arrival. Secondary to right hip osteoarthritis with degenerative changes and questionable osteonecrosis. Ambulating well after receiving morphine. Continue lidocaine patch and Flexeril. Oxycodone started. Has a follow-up appointment with orthopedic 12/11/2023 with likely need for MRI. NSAIDs held. HTN: Per history. Slightly hypertensive on admit. Amlodipine resumed. HLD: Per history. Statin resumed. Code Status: Full code VTE Prophylaxis: SCD Current living situation: Home Expected disposition: Home Expected length of stay: less than 2 midnights Legal Guardian: No Chief Complaint: Right hip Pain History of Present Illness: Angella Fernandez is a 53 y.o. male with a PMH of alcohol use, hypertension, hyperlipidemia and admission to 12/03-12/05/2023 for 1 month history of worsening right hip pain acutely worsened few days prior which prompted the hospitalization with a hospital course complicated by hyponatremia. Patient was discharged on diclofenac and Flexeril however re-presented to the ED 12/06/2023 with restlessness, sweatiness and nausea. Patient reported that he has been struggling with right hip pain for the last approximately 4 weeks for which she was seen previously at the pain clinic and received steroid injection as well as steroid tablets however he continued to have pain. Patient reported treating his pain with alcohol and occasionally binge drinking as many as 10 whiskeys daily for approximately 2-3 days. Continued to have pain which prompted his recent hospitalization. Underwent right pelvis x-ray 12/04/2023 which showed worsening degenerative changes and questionable osteonecrosis. Orthopedic surgery recommended outpatient follow-up and likely need for MRI. Patient upon leaving the hospital developed pain again which was uncontrolled with diclofenac and Flexeril as well as lidocaine patches. He also reported developing nausea after taking diclofenac. Few hours later the patient failed sweaty and restless and was worried that he might be going into alcohol withdrawal and therefore started drinking again and reported 5 whiskeys prior to arrival. On arrival to the ED, the patient was noted to be slightly hypertensive and tachycardic with heart rate over 120 otherwise afebrile hemodynamically stable. Basic laboratory workup obtained on arrival and was significant for K 3.4, bicarb 11.0. WBC 16.67. Anion gap 22.4. ROS: 10 systems were reviewed and negative,except as noted above Past Medical, Surgical, Social, Family History: Past Medical History: Diagnosis Date Alcohol withdrawal seizures Bradycardia COVID-19 09/2021 Essential hypertension, benign Migraine Osteoarthritis 09/2023 Right hip Spondylosis, cervical Past Surgical History: Procedure Laterality Date ORCHIECTOMY LAPAROSCOPIC TONSILLECTOMY Social History Socioeconomic History Marital status: Spouse name: Not on file Number of children: Not on file Years of education: Not on file Highest education level: Not on file Occupational History Not on file Tobacco Use Smoking status: Every Day Current packs/day: 0.50 Types: Cigarettes Smokeless tobacco: Never Tobacco comments: quit 2013 Vaping Use Vaping status: Never Used Substance and Sexual Activity Alcohol use: Yes Alcohol/week: 3.0 standard drinks of alcohol Types: 3 Shots of liquor per week Comment: Hx of binge drinking/withdrawal/seizures Drug use: Not Currently Types: Marijuana Sexual activity: Not on file Other Topics Concern Not on file Social History Narrative Not on file Social Determinants of Health Financial Resource Strain: Not on file Food Insecurity: No Food Insecurity (12/06/2023) Hunger Vital Sign Worried About Running Out of Food in the Last Year: Never true Ran Out of Food in the Last Year: Never true Transportation Needs: No Transportation Needs (12/06/2023) PRAPARE - Transportation Lack of Transportation (Medical): No Lack of Transportation (Non-Medical): No Physical Activity: Not on file Stress: Not on file Social Connections: Not on file Intimate Partner Violence: Not At Risk (12/06/2023) Humiliation, Afraid, Rape, and Kick questionnaire Fear of Current or Ex-Partner: No Emotionally Abused: No Physically Abused: No Sexually Abused: No Housing Stability: High Risk (12/06/2023) Housing Stability Vital Sign Unable to Pay for Housing in the Last Year: No Number of Places Lived in the Last Year: 1 Unstable Housing in the Last Year: Yes Family History Problem Relation Age of Onset Other - Specify Mother pancreatitis Liver Disease Father No known problems Sister No known problems Brother No known problems Brother No known problems Son Current Medications: Medications Prior to Admission Medication Sig Dispense Refill Last Dose amLODIPine 10 MG tablet TAKE 1 TABLET BY MOUTH DAILY 30 tablet 2 Atorvastatin 40 MG tablet Take 1 tablet by mouth daily. (Patient not taking: Reported on 12/04/2023) 30 tablet 2 Cyclobenzaprine 10 MG tablet Take 1 tablet by mouth at bedtime as needed for Muscle spasms. diclofenac EC [address] tablet Take 1 tablet by mouth 2 times daily as needed for Mild Pain or Moderate Pain. lidocaine 5 % Patch patch Place 2 patches on skin every 24 hours. Max of 12 hours of application then remove. (Patient taking differently: Place 2 patches on skin Every 24 hours as needed. Max of 12 hours of application then remove.) 20 patch 0 Multiple Vitamins-Minerals (Thera-M) tablet Take 1 tablet by mouth daily. 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, Pt just walked to restroom Pulse 120 Temp 98.4 F (36.9 C) (Temporal) Resp 15 Ht 1.803 m (5' 11 ) Wt 95.1 kg (209 lb 10.5 oz) SpO2 95% BMI 29.24 kg/m Smoking Status Every Day General: appears stated age, in NAD Eyes: anicteric, EOMI ENT: neck supple, moist mucous membranes Cardiovascular: regular rate and rhythm, no peripheral edema Respiratory: clear to auscultation b/L; no wheezes/crackles Gastrointestinal: soft, non-distended Genitourinary: no suprapubic tenderness, no amaya in place Musculoskeletal: no joint edema, no bony deformities Skin: warm, dry Neuro: alert and oriented x3 with no focal deficits Psych: mood appropriate Labs, Imaging, and Studies reviewed: Recent Labs 12/04/23 0938 12/05/23 0511 12/06/23 0205 WBC 13.07* 8.30 16.67* HGB 16.3 14.7 15.7 HCT 49.9 43.6 46.7 PLATELET 306 235 300 Recent Labs 12/04/23 0938 12/05/23 0500 12/05/23 0511 12/06/23 0205 SODIUM 148* -- 139 142 POTASSIUM 3.8 -- 3.5 3.4* CHLORIDE 112* -- 109 109 CO2 15.0* -- 25.0 11.0* BUN 18 -- 14 17 CREATSERUM 0.93 -- 0.59* 1.14 GFR 90 -- 151 71 GLUCOSE 95 -- 90 116* CALCIUM 10.1 -- 9.8 10.2 ALBUMIN 5.0 -- -- 4.6 PHOSPHORUS 4.0 -- 2.9 -- MAGNESIUM 1.8 1.8 -- -- Recent Labs 12/04/23 0938 12/06/23 0205 ALT 44 35 AST 51 45 ALKPHOS 113 120 BILITOTAL 2.9* 2.1* No results for input(s): INR in the last 72 hours. documented in this encounter [facility] [employer] Phone: 12-06-2023 History and physical note [facility] / History and Physical Note 12/06/23 Angella Fernandez 1970 [id number] Assessment/Plan: Angella Fernandez is a 53 y.o. male with a PMH of alcohol use, hypertension, hyperlipidemia and admission to 12/03-12/05/2023 for 1 month history of worsening right hip pain acutely worsened few days prior which prompted the hospitalization with a hospital course complicated by hyponatremia. Patient was discharged on diclofenac and Flexeril however re-presented to the ED 12/06/2023 with restlessness, sweatiness and nausea. Found to have anion gap metabolic acidosis. AGMA: Likely secondary to nausea, vomiting and poor oral intake and excessive volume loss. Bicarb 11.0, anion gap 22.4. S/P1 L normal saline bolus in the ED, an additional 1 L normal saline bolus ordered followed by D5 normal saline with 20 of K and 2 amps of bicarb ordered. Monitor heart rate, intake and output. Repeat labs in 6 hours. NSAIDs held. Protonix started. Dehydration: Noted clinically with dry mucosal membrane and tachycardia. IV hydration as discussed. Hypokalemia: In the setting of nausea and vomiting. K 3.4. Replaced as discussed. Recheck. Suspected alcohol withdrawal: Had a lengthy discussion with the patient regarding his alcohol use. Patient admitted to having issue with occasional binge drinking due to right hip pain. Denied daily alcohol intake in the last 2 months and was able to go weeks without drinking. He also reported being concerned about going into alcohol withdrawal after leaving the hospital 12/05/2023 and admitted to drinking 5 whiskeys. Described sweatiness and restlessness. Noted to be slightly tachycardic on admit. Started on CIWA protocol and aggressive hydration. Doubt he will need any form of taper dosing for his alcohol withdrawal. Banana Bag. Monitor closely. Elevated lipase: Possibly secondary to alcohol intake. At 476 on admit. No signs of pancreatitis/no abdominal tenderness. Trend. Presumed Gastritis: vs PUD. Secondary to NSAIDS and ETOH intake. All NSAIDS discontinued on admit. PPI. Healthy heart diet. Leukocytosis: Likely reactive secondary to above. At 16.67 on admit. Trend. Right hip pain: With inability to ambulate due to pain on arrival. Secondary to right hip osteoarthritis with degenerative changes and questionable osteonecrosis. Ambulating well after receiving morphine. Continue lidocaine patch and Flexeril. Oxycodone started. Has a follow-up appointment with orthopedic 12/11/2023 with likely need for MRI. NSAIDs held. HTN: Per history. Slightly hypertensive on admit. Amlodipine resumed. HLD: Per history. Statin resumed. Code Status: Full code VTE Prophylaxis: SCD Current living situation: Home Expected disposition: Home Expected length of stay: less than 2 midnights Legal Guardian: No Chief Complaint: Right hip Pain History of Present Illness: Angella Fernandez is a 53 y.o. male with a PMH of alcohol use, hypertension, hyperlipidemia and admission to 12/03-12/05/2023 for 1 month history of worsening right hip pain acutely worsened few days prior which prompted the hospitalization with a hospital course complicated by hyponatremia. Patient was discharged on diclofenac and Flexeril however re-presented to the ED 12/06/2023 with restlessness, sweatiness and nausea. Patient reported that he has been struggling with right hip pain for the last approximately 4 weeks for which she was seen previously at the pain clinic and received steroid injection as well as steroid tablets however he continued to have pain. Patient reported treating his pain with alcohol and occasionally binge drinking as many as 10 whiskeys daily for approximately 2-3 days. Continued to have pain which prompted his recent hospitalization. Underwent right pelvis x-ray 12/04/2023 which showed worsening degenerative changes and questionable osteonecrosis. Orthopedic surgery recommended outpatient follow-up and likely need for MRI. Patient upon leaving the hospital developed pain again which was uncontrolled with diclofenac and Flexeril as well as lidocaine patches. He also reported developing nausea after taking diclofenac. Few hours later the patient failed sweaty and restless and was worried that he might be going into alcohol withdrawal and therefore started drinking again and reported 5 whiskeys prior to arrival. On arrival to the ED, the patient was noted to be slightly hypertensive and tachycardic with heart rate over 120 otherwise afebrile hemodynamically stable. Basic laboratory workup obtained on arrival and was significant for K 3.4, bicarb 11.0. WBC 16.67. Anion gap 22.4. ROS: 10 systems were reviewed and negative,except as noted above Past Medical, Surgical, Social, Family History: Past Medical History: Diagnosis Date Alcohol withdrawal seizures Bradycardia COVID-19 09/2021 Essential hypertension, benign Migraine Osteoarthritis 09/2023 Right hip Spondylosis, cervical Past Surgical History: Procedure Laterality Date ORCHIECTOMY LAPAROSCOPIC TONSILLECTOMY Social History Socioeconomic History Marital status: Spouse name: Not on file Number of children: Not on file Years of education: Not on file Highest education level: Not on file Occupational History Not on file Tobacco Use Smoking status: Every Day Current packs/day: 0.50 Types: Cigarettes Smokeless tobacco: Never Tobacco comments: quit 2013 Vaping Use Vaping status: Never Used Substance and Sexual Activity Alcohol use: Yes Alcohol/week: 3.0 standard drinks of alcohol Types: 3 Shots of liquor per week Comment: Hx of binge drinking/withdrawal/seizures Drug use: Not Currently Types: Marijuana Sexual activity: Not on file Other Topics Concern Not on file Social History Narrative Not on file Social Determinants of Health Financial Resource Strain: Not on file Food Insecurity: No Food Insecurity (12/06/2023) Hunger Vital Sign Worried About Running Out of Food in the Last Year: Never true Ran Out of Food in the Last Year: Never true Transportation Needs: No Transportation Needs (12/06/2023) PRAPARE - Transportation Lack of Transportation (Medical): No Lack of Transportation (Non-Medical): No Physical Activity: Not on file Stress: Not on file Social Connections: Not on file Intimate Partner Violence: Not At Risk (12/06/2023) Humiliation, Afraid, Rape, and Kick questionnaire Fear of Current or Ex-Partner: No Emotionally Abused: No Physically Abused: No Sexually Abused: No Housing Stability: High Risk (12/06/2023) Housing Stability Vital Sign Unable to Pay for Housing in the Last Year: No Number of Places Lived in the Last Year: 1 Unstable Housing in the Last Year: Yes Family History Problem Relation Age of Onset Other - Specify Mother pancreatitis Liver Disease Father No known problems Sister No known problems Brother No known problems Brother No known problems Son Current Medications: Medications Prior to Admission Medication Sig Dispense Refill Last Dose amLODIPine 10 MG tablet TAKE 1 TABLET BY MOUTH DAILY 30 tablet 2 Atorvastatin 40 MG tablet Take 1 tablet by mouth daily. (Patient not taking: Reported on 12/04/2023) 30 tablet 2 Cyclobenzaprine 10 MG tablet Take 1 tablet by mouth at bedtime as needed for Muscle spasms. diclofenac EC [address] tablet Take 1 tablet by mouth 2 times daily as needed for Mild Pain or Moderate Pain. lidocaine 5 % Patch patch Place 2 patches on skin every 24 hours. Max of 12 hours of application then remove. (Patient taking differently: Place 2 patches on skin Every 24 hours as needed. Max of 12 hours of application then remove.) 20 patch 0 Multiple Vitamins-Minerals (Thera-M) tablet Take 1 tablet by mouth daily. 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, Pt just walked to restroom Pulse 120 Temp 98.4 F (36.9 C) (Temporal) Resp 15 Ht 1.803 m (5' 11 ) Wt 95.1 kg (209 lb 10.5 oz) SpO2 95% BMI 29.24 kg/m Smoking Status Every Day General: appears stated age, in NAD Eyes: anicteric, EOMI ENT: neck supple, moist mucous membranes Cardiovascular: regular rate and rhythm, no peripheral edema Respiratory: clear to auscultation b/L; no wheezes/crackles Gastrointestinal: soft, non-distended Genitourinary: no suprapubic tenderness, no amaya in place Musculoskeletal: no joint edema, no bony deformities Skin: warm, dry Neuro: alert and oriented x3 with no focal deficits Psych: mood appropriate Labs, Imaging, and Studies reviewed: Recent Labs 12/04/23 0912/05/23 0511 12/06/23 0205 WBC 13.07* 8.30 16.67* HGB 16.3 14.7 15.7 HCT 49.9 43.6 46.7 PLATELET 306 235 300 Recent Labs 12/04/23 0912/05/23 0500 12/05/23 0511 12/06/23 0205 SODIUM 148* -- 139 142 POTASSIUM 3.8 -- 3.5 3.4* CHLORIDE 112* -- 109 109 CO2 15.0* -- 25.0 11.0* BUN 18 -- 14 17 CREATSERUM 0.93 -- 0.59* 1.14 GFR 90 -- 151 71 GLUCOSE 95 -- 90 116* CALCIUM 10.1 -- 9.8 10.2 ALBUMIN 5.0 -- -- 4.6 PHOSPHORUS 4.0 -- 2.9 -- MAGNESIUM 1.8 1.8 -- -- Recent Labs 12/04/2338 12/06/23 0205 ALT 44 35 AST 51 45 ALKPHOS 113 120 BILITOTAL 2.9* 2.1* No results for input(s): INR in the last 72 hours. documented in this encounter [employer] Phone: 12-06-2023 Plan of care note Problem: Patient Care Overview Goal: Plan of Care Review Outcome: Progressing Goal: Individualization & Mutuality Outcome: Progressing Goal: Discharge Needs Assessment Outcome: Progressing Goal: Interdisciplinary Rounds/Family Conf Outcome: Progressing Problem: Dysphagia (Adult) Goal: Identify Related Risk Factors and Signs and Symptoms Description: Related risk factors and signs and symptoms are identified upon initiation of Human Response Clinical Practice Guideline (CPG) Outcome: Progressing Goal: Functional/Safe Swallow Description: Patient will demonstrate the desired outcomes by discharge/transition of care. Outcome: Progressing Goal: Compensatory Techniques to Improve Safety/Function with Swallowing Description: Patient will demonstrate the desired outcomes by discharge/transition of care. Outcome: Progressing Problem: Pain, Acute (Adult) Goal: Identify Related Risk Factors and Signs and Symptoms Description: Related risk factors and signs and symptoms are identified upon initiation of Human Response Clinical Practice Guideline (CPG) Outcome: Progressing Goal: Acceptable Pain Control/Comfort Level Description: Patient will demonstrate the desired outcomes by discharge/transition of care. Outcome: Progressing Problem: Mobility, Physical Impaired (Adult) Goal: Identify Related Risk Factors and Signs and Symptoms Description: Related risk factors and signs and symptoms are identified upon initiation of Human Response Clinical Practice Guideline (CPG) Outcome: Progressing Goal: Enhanced Mobility Skills Description: Patient will demonstrate the desired outcomes by discharge/transition of care. Outcome: Progressing Goal: Enhanced Functionality Ability Description: Patient will demonstrate the desired outcomes by discharge/transition of care. Outcome: Progressing Problem: Fall/Trauma/Injury Risk (Adult) Goal: Fall/Trauma/Injury Risk: Absence of Trauma/Injury/Falls Description: Patient will demonstrate the desired outcomes. Outcome: Progressing Goal: Knowledge of risk factors/behavior modification Description: Knowledge of risk factors/behavior modification for fall/injury prevention Outcome: Progressing Problem: Alcohol Withdrawal Acute, Risk/Actual (Adult) Goal: Signs and Symptoms of Listed Potential Problems Will be Absent, Minimized or Managed (Alcohol Withdrawal Acute, Risk/Actual) Description: Signs and symptoms of listed potential problems will be absent, minimized or managed by discharge/transition of care (reference Alcohol Withdrawal Acute, Risk/Actual (Adult) CPG). Outcome: Progressing [facility] [employer] Phone: 12-06-2023 Physician Emergency department Note Chief Complaint Patient presents with Hip Pain Angella Fernandez is a 53 y.o. male who presented with complaints of chronic right hip pain and concerns for alcohol withdrawal. Patient was seen and evaluated on 12/03 for similar complaints and was admitted to the hospital at that time. X-ray of his right hip showed worsening degenerative arthritis with concerns for possible osteonecrosis. Ortho was consulted and they recommended outpatient MRI, multimodal pain control and avoiding narcotics. Patient recently went through alcohol withdrawal 2 weeks ago at [facility]. Per the discharge summary the hospitalist discuss risks and benefits of inpatient phenobarbital taper and the patient would prefer to hold off at that time. Patient was discharged on 12/04. He states that his right hip pain continues. Denies any new injuries trauma or falls. He states that he felt shaky today and was concerned that he was going through withdrawals and so he drank about 5-6 drinks of alcohol, whiskey. Patient is unsure of time of last drink but does state it was sometime today. He then states he began having some nausea nonbloody nonbilious emesis that he states occurred because he took his diclofenac on an empty stomach. Denies any fever, chest pain, shortness O breath, lightheadedness, dizziness. Past Medical History: Diagnosis Date Alcohol withdrawal seizures Bradycardia COVID-19 09/2021 Essential hypertension, benign Migraine Osteoarthritis 09/2023 Right hip Spondylosis, cervical Past Surgical History: Procedure Laterality Date ORCHIECTOMY LAPAROSCOPIC TONSILLECTOMY Family History Problem Relation Age of Onset Other - Specify Mother pancreatitis Liver Disease Father No known problems Sister No known problems Brother No known problems Brother No known problems Son No Known Allergies Social History Socioeconomic History Marital status: Spouse name: Not on file Number of children: Not on file Years of education: Not on file Highest education level: Not on file Occupational History Not on file Tobacco Use Smoking status: Every Day Current packs/day: 0.50 Types: Cigarettes Smokeless tobacco: Never Tobacco comments: quit 2013 Vaping Use Vaping status: Never Used Substance and Sexual Activity Alcohol use: Yes Alcohol/week: 3.0 standard drinks of alcohol Types: 3 Shots of liquor per week Comment: Hx of binge drinking/withdrawal/seizures Drug use: Not Currently Types: Marijuana Sexual activity: Not on file Other Topics Concern Not on file Social History Narrative Not on file Social Determinants of Health Financial Resource Strain: Not on file Food Insecurity: No Food Insecurity (12/04/2023) Hunger Vital Sign Worried About Running Out of Food in the Last Year: Never true Ran Out of Food in the Last Year: Never true Transportation Needs: No Transportation Needs (12/04/2023) PRAPARE - Transportation Lack of Transportation (Medical): No Lack of Transportation (Non-Medical): No Physical Activity: Not on file Stress: Not on file Social Connections: Not on file Intimate Partner Violence: Not At Risk (12/04/2023) Humiliation, Afraid, Rape, and Kick questionnaire Fear of Current or Ex-Partner: No Emotionally Abused: No Physically Abused: No Sexually Abused: No Housing Stability: High Risk (12/04/2023) Housing Stability Vital Sign Unable to Pay for Housing in the Last Year: No Number of Places Lived in the Last Year: 1 Unstable Housing in the Last Year: Yes Review of Systems Constitutional: Negative for activity change, appetite change, fatigue and fever. Respiratory: Negative for shortness of breath. Cardiovascular: Negative for chest pain. Gastrointestinal: Positive for nausea and vomiting. Negative for abdominal pain, constipation and diarrhea. Musculoskeletal: Positive for arthralgias. Skin: Negative for wound. Neurological: Negative for seizures, weakness, light-headedness, numbness and headaches. Psychiatric/Behavioral: Negative for confusion. All other systems reviewed and are negative. Physical Exam ED Triage Vitals Enc Vitals Group BP 12/06/23 013 104/81 Pulse (Heart Rate) 12/06/23 013 95 Resp Rate 12/06/23135 18 Temp 12/06/23137 97 F (36.1 C) Temp src -- O2 Sat (%) 12/06/23135 100 % Weight 12/06/23136 99.8 kg (220 lb) Height 12/06/23136 1.803 m (5' 11 ) Head Circumference -- Peak Flow -- Pain Score -- Pain Loc -- Pain Edu? -- Excl. in GC? -- Vitals: 12/06/2313512/06/2313612/06/2313712/06/23 0300 BP: 104/81 (!) 145/91 Pulse: 95 127 112 Resp: 18 18 Temp: 97 degrees F (36.1 degrees C) SpO2: 100% 92% Weight: 99.8 kg (220 lb) Height: 1.803 m (5' 11 ) Physical Exam Vitals and nursing note reviewed. Constitutional: General: He is not in acute distress. Appearance: Normal appearance. He is not ill-appearing or toxic-appearing. Comments: Smells of alcohol HENT: Head: Normocephalic and atraumatic. Nose: Nose normal. Mouth/Throat: Comments: Mild tongue fasciculations Cardiovascular: Rate and Rhythm: Normal rate and regular rhythm. Pulses: Normal pulses. Heart sounds: Normal heart sounds. Pulmonary: Effort: Pulmonary effort is normal. No respiratory distress. Breath sounds: Normal breath sounds. No wheezing or rales. Abdominal: General: Abdomen is flat. There is no distension. Palpations: Abdomen is soft. Tenderness: There is no abdominal tenderness. There is no guarding or rebound. Musculoskeletal: General: No swelling or tenderness. Normal range of motion. Comments: No bony deformity, does have some pain with flexion and extension of the hip, pelvis stable, neurovascularly intact, compartment soft Skin: General: Skin is warm and dry. Capillary Refill: Capillary refill takes less than 2 seconds. Neurological: Mental Status: He is alert and oriented to person, place, and time. Mental status is at baseline. Psychiatric: Behavior: Behavior normal. Results for orders placed or performed during the hospital encounter of 12/06/23 CBC, EDIF, PLATELET Result Value Ref Range WBC (WHITE BLOOD COUNT) 16.67 (H) 3.12 - 10.36 10*3/uL RBC 4.97 3.59 - 6.32 10*6/uL HEMOGLOBIN (HGB) 15.7 11.4 - 17.7 g/dL HEMATOCRIT (HCT) 46.7 34.3 - 53.1 % MEAN CELL VOLUME 94.0 81.6 - 95.6 fL Mean Cell HGB 31.6 26.2 - 32.7 pg MEAN CELL HGB CONCENTRATION 33.6 31.6 - 35.0 g/dL PLATELET COUNT 300 150 - 375 10*3/uL RBC DISTRIBUTION 13.5 11.4 - 14.4 % MEAN PLATELET VOLUME 8.6 (L) 8.9 - 11.5 fL NEUTROPHIL % 86.9 (H) 36.0 - 66.0 % LYMPHOCYTES % 8.4 (L) 24.0 - 44.0 % MONOCYTE % 3.7 (L) 5.0 - 12.0 % EOSINOPHILS 0.2 0.0 - 4.0 % BASOPHIL % 0.4 0.0 - 2.0 % NEUTROPHILS (ABSOLUTE) 14.49 (H) 2.00 - 7.50 10*3/uL LYMPHOCYTES, ABSOLUTE 1.40 1.00 - 4.80 10*3/uL MONOCYTES, ABSOLUTE 0.61 0.20 - 1.20 10*3/uL EOSINOPHILS, ABSOLUTE 0.03 0.00 - 0.50 10*3/uL ABSOLUTE BASOPHIL COUNT 0.07 0.00 - 0.20 10*3/uL RBC, NUCLEATED 0.0 % RBC, NUCLEATED, ABSOLUTE 0.00 0.00 - 0.50 COMPREHENSIVE METABOLIC PANEL Result Value Ref Range SODIUM 142 136 - 145 mmol/L POTASSIUM 3.4 (L) 3.5 - 5.0 mmol/L CHLORIDE 109 100 - 110 mmol/L CARBON DIOXIDE (CO2) 11.0 (L) 22.0 - 30.0 mm/Hg Glucose 116 (H) 70 - 100 mg/dL BUN 17 7 - 22 mg/dL CREATININE SERUM 1.14 0.80 - 1.50 mg/dL CALCIUM 10.2 8.4 - 10.2 mg/dL PROTEIN, TOTAL 8.0 6.0 - 8.2 g/dL Albumin 4.6 3.5 - 5.0 g/dL ALT 35 21 - 72 U/L ALKALINE PHOSPHATASE 120 38 - 126 U/L AST 45 17 - 59 U/L BILIRUBIN, TOTAL 2.1 (H) 0.2 - 1.2 mg/dL ANION GAP 22.4 mmol/L ESTIMATED GFR, NON AMER 71 >60 mL/min/1.73 m2 LIPASE Result Value Ref Range LIPASE 476 (H) 23 - 300 U/L TROPONIN Result Value Ref Range TROPONIN 0.014 0.012 - 0.120 ng/mL ALCOHOL (ETHANOL),BLOOD Result Value Ref Range ALCOHOL, ETHYL, SERUM 100 <10 mg/dL No orders to display EKG Sinus tachycardia, left axis deviation, no ST elevation or depression, T-wave inversion in aVL, does appear similar compared to prior on 12/04/2023 ED Course Upon my evaluation, this patient had high probability of imminent or life-threatening deterioration due to which required my direct attention, intervention and personal management Total minutes of critical care time spent in direct and indirect care of this critically ill patient excludes separately billable procedures. This time includes airway assessment and stabilization if indicated, ordering and interpretation of laboratory data, ordering and interpretation of radiologic tests, discussion with consultants/patient's family, and monitoring for potential decompensation. Interventions were performed as documented. MEDICAL DECISION MAKING External documents reviewed: nursing notes this encounter, patient medical records available in [facility] locally or with care everywhere Medical Decision Making Patient is a 53-year-old male who presents with complaints of chronic right hip pain, nausea, vomiting and concerns for alcohol withdrawal. On exam patient is well-appearing, nontoxic. Vital signs remarkable for tachycardia. Will plan for basic labs, lipase ethanol level. Will plan for Zofran, IV fluids and Toradol. ED Course as of 12/06/23 0351 Time: 12/05 206 Comment: I do not feel that a repeat x-ray is indicated at this time is this is a chronic ongoing issue for the patient he had an x-ray on 12/03 with no new trauma or injury. Time: 12/05 218 Value: ALCOHOL, ETHYL, SERUM: 100 Comment: (Reviewed) Time: 12/05 225 Comment: CIWA score 8 Time: 12/06 227 Value: LIPASE(!): 476 Comment: (Reviewed) Time: 12/06 235 Comment: Patient continued to have vomiting despite Zofran, will plan for Phenergan. Given his CIWA score, CIWA score and Ativan was ordered. Time: 12/06 235 Comment: I do not feel that a CT abdomen pelvis is indicated at this time as abdomen is benign. I do feel however that given his CIWA score at this time, early signs of alcohol withdrawal that he does need admitted to the hospital for further management of his alcohol withdrawal symptoms. Time: 12/05 349 Value: TROPONIN: 0.014 Comment: Plan for T3 although low suspicion for ACS Time: 12/05 350 Comment: Discussed case with hospitalist who is agreeable for admission. Amount and/or Complexity of Data Reviewed Labs: ordered. Decision-making details documented in ED Course. ECG/medicine tests: ordered. Risk Prescription drug management. Decision regarding hospitalization. Shared decision making: Discussed plan of care and follow up plan with patient Code status if being admitted: 1. Chronic right hip pain 2. Alcohol withdrawal syndrome with complication Hector Edwards DO 12/06/23351 [employer] Phone: 12-06-2023 Emergency department Note Chief Complaint Patient presents with Hip Pain Angella Fernandez is a 53 y.o. male who presented with complaints of chronic right hip pain and concerns for alcohol withdrawal. Patient was seen and evaluated on 12/03 for similar complaints and was admitted to the hospital at that time. X-ray of his right hip showed worsening degenerative arthritis with concerns for possible osteonecrosis. Ortho was consulted and they recommended outpatient MRI, multimodal pain control and avoiding narcotics. Patient recently went through alcohol withdrawal 2 weeks ago at [facility]. Per the discharge summary the hospitalist discuss risks and benefits of inpatient phenobarbital taper and the patient would prefer to hold off at that time. Patient was discharged on 12/04. He states that his right hip pain continues. Denies any new injuries trauma or falls. He states that he felt shaky today and was concerned that he was going through withdrawals and so he drank about 5-6 drinks of alcohol, whiskey. Patient is unsure of time of last drink but does state it was sometime today. He then states he began having some nausea nonbloody nonbilious emesis that he states occurred because he took his diclofenac on an empty stomach. Denies any fever, chest pain, shortness O breath, lightheadedness, dizziness. Past Medical History: Diagnosis Date Alcohol withdrawal seizures Bradycardia COVID-19 09/2021 Essential hypertension, benign Migraine Osteoarthritis 09/2023 Right hip Spondylosis, cervical Past Surgical History: Procedure Laterality Date ORCHIECTOMY LAPAROSCOPIC TONSILLECTOMY Family History Problem Relation Age of Onset Other - Specify Mother pancreatitis Liver Disease Father No known problems Sister No known problems Brother No known problems Brother No known problems Son No Known Allergies Social History Socioeconomic History Marital status: Spouse name: Not on file Number of children: Not on file Years of education: Not on file Highest education level: Not on file Occupational History Not on file Tobacco Use Smoking status: Every Day Current packs/day: 0.50 Types: Cigarettes Smokeless tobacco: Never Tobacco comments: quit 2013 Vaping Use Vaping status: Never Used Substance and Sexual Activity Alcohol use: Yes Alcohol/week: 3.0 standard drinks of alcohol Types: 3 Shots of liquor per week Comment: Hx of binge drinking/withdrawal/seizures Drug use: Not Currently Types: Marijuana Sexual activity: Not on file Other Topics Concern Not on file Social History Narrative Not on file Social Determinants of Health Financial Resource Strain: Not on file Food Insecurity: No Food Insecurity (12/04/2023) Hunger Vital Sign Worried About Running Out of Food in the Last Year: Never true Ran Out of Food in the Last Year: Never true Transportation Needs: No Transportation Needs (12/04/2023) PRAPARE - Transportation Lack of Transportation (Medical): No Lack of Transportation (Non-Medical): No Physical Activity: Not on file Stress: Not on file Social Connections: Not on file Intimate Partner Violence: Not At Risk (12/04/2023) Humiliation, Afraid, Rape, and Kick questionnaire Fear of Current or Ex-Partner: No Emotionally Abused: No Physically Abused: No Sexually Abused: No Housing Stability: High Risk (12/04/2023) Housing Stability Vital Sign Unable to Pay for Housing in the Last Year: No Number of Places Lived in the Last Year: 1 Unstable Housing in the Last Year: Yes Review of Systems Constitutional: Negative for activity change, appetite change, fatigue and fever. Respiratory: Negative for shortness of breath. Cardiovascular: Negative for chest pain. Gastrointestinal: Positive for nausea and vomiting. Negative for abdominal pain, constipation and diarrhea. Musculoskeletal: Positive for arthralgias. Skin: Negative for wound. Neurological: Negative for seizures, weakness, light-headedness, numbness and headaches. Psychiatric/Behavioral: Negative for confusion. All other systems reviewed and are negative. Physical Exam ED Triage Vitals Enc Vitals Group BP 12/06/23137 104/81 Pulse (Heart Rate) 12/06/23 013 95 Resp Rate 12/06/23135 18 Temp 12/06/23137 97 F (36.1 C) Temp src -- O2 Sat (%) 12/06/23135 100 % Weight 12/06/23136 99.8 kg (220 lb) Height 12/06/23136 1.803 m (5' 11 ) Head Circumference -- Peak Flow -- Pain Score -- Pain Loc -- Pain Edu? -- Excl. in GC? -- Vitals: 12/06/2313512/06/2313612/06/2313712/06/23 0300 BP: 104/81 (!) 145/91 Pulse: 95 127 112 Resp: 18 18 Temp: 97 degrees F (36.1 degrees C) SpO2: 100% 92% Weight: 99.8 kg (220 lb) Height: 1.803 m (5' 11 ) Physical Exam Vitals and nursing note reviewed. Constitutional: General: He is not in acute distress. Appearance: Normal appearance. He is not ill-appearing or toxic-appearing. Comments: Smells of alcohol HENT: Head: Normocephalic and atraumatic. Nose: Nose normal. Mouth/Throat: Comments: Mild tongue fasciculations Cardiovascular: Rate and Rhythm: Normal rate and regular rhythm. Pulses: Normal pulses. Heart sounds: Normal heart sounds. Pulmonary: Effort: Pulmonary effort is normal. No respiratory distress. Breath sounds: Normal breath sounds. No wheezing or rales. Abdominal: General: Abdomen is flat. There is no distension. Palpations: Abdomen is soft. Tenderness: There is no abdominal tenderness. There is no guarding or rebound. Musculoskeletal: General: No swelling or tenderness. Normal range of motion. Comments: No bony deformity, does have some pain with flexion and extension of the hip, pelvis stable, neurovascularly intact, compartment soft Skin: General: Skin is warm and dry. Capillary Refill: Capillary refill takes less than 2 seconds. Neurological: Mental Status: He is alert and oriented to person, place, and time. Mental status is at baseline. Psychiatric: Behavior: Behavior normal. Results for orders placed or performed during the hospital encounter of 12/06/23 CBC, EDIF, PLATELET Result Value Ref Range WBC (WHITE BLOOD COUNT) 16.67 (H) 3.12 - 10.36 10*3/uL RBC 4.97 3.59 - 6.32 10*6/uL HEMOGLOBIN (HGB) 15.7 11.4 - 17.7 g/dL HEMATOCRIT (HCT) 46.7 34.3 - 53.1 % MEAN CELL VOLUME 94.0 81.6 - 95.6 fL Mean Cell HGB 31.6 26.2 - 32.7 pg MEAN CELL HGB CONCENTRATION 33.6 31.6 - 35.0 g/dL PLATELET COUNT 300 150 - 375 10*3/uL RBC DISTRIBUTION 13.5 11.4 - 14.4 % MEAN PLATELET VOLUME 8.6 (L) 8.9 - 11.5 fL NEUTROPHIL % 86.9 (H) 36.0 - 66.0 % LYMPHOCYTES % 8.4 (L) 24.0 - 44.0 % MONOCYTE % 3.7 (L) 5.0 - 12.0 % EOSINOPHILS 0.2 0.0 - 4.0 % BASOPHIL % 0.4 0.0 - 2.0 % NEUTROPHILS (ABSOLUTE) 14.49 (H) 2.00 - 7.50 10*3/uL LYMPHOCYTES, ABSOLUTE 1.40 1.00 - 4.80 10*3/uL MONOCYTES, ABSOLUTE 0.61 0.20 - 1.20 10*3/uL EOSINOPHILS, ABSOLUTE 0.03 0.00 - 0.50 10*3/uL ABSOLUTE BASOPHIL COUNT 0.07 0.00 - 0.20 10*3/uL RBC, NUCLEATED 0.0 % RBC, NUCLEATED, ABSOLUTE 0.00 0.00 - 0.50 COMPREHENSIVE METABOLIC PANEL Result Value Ref Range SODIUM 142 136 - 145 mmol/L POTASSIUM 3.4 (L) 3.5 - 5.0 mmol/L CHLORIDE 109 100 - 110 mmol/L CARBON DIOXIDE (CO2) 11.0 (L) 22.0 - 30.0 mm/Hg Glucose 116 (H) 70 - 100 mg/dL BUN 17 7 - 22 mg/dL CREATININE SERUM 1.14 0.80 - 1.50 mg/dL CALCIUM 10.2 8.4 - 10.2 mg/dL PROTEIN, TOTAL 8.0 6.0 - 8.2 g/dL Albumin 4.6 3.5 - 5.0 g/dL ALT 35 21 - 72 U/L ALKALINE PHOSPHATASE 120 38 - 126 U/L AST 45 17 - 59 U/L BILIRUBIN, TOTAL 2.1 (H) 0.2 - 1.2 mg/dL ANION GAP 22.4 mmol/L ESTIMATED GFR, NON AMER 71 >60 mL/min/1.73 m2 LIPASE Result Value Ref Range LIPASE 476 (H) 23 - 300 U/L TROPONIN Result Value Ref Range TROPONIN 0.014 0.012 - 0.120 ng/mL ALCOHOL (ETHANOL),BLOOD Result Value Ref Range ALCOHOL, ETHYL, SERUM 100 <10 mg/dL No orders to display EKG Sinus tachycardia, left axis deviation, no ST elevation or depression, T-wave inversion in aVL, does appear similar compared to prior on 12/04/2023 ED Course Upon my evaluation, this patient had high probability of imminent or life-threatening deterioration due to which required my direct attention, intervention and personal management Total minutes of critical care time spent in direct and indirect care of this critically ill patient excludes separately billable procedures. This time includes airway assessment and stabilization if indicated, ordering and interpretation of laboratory data, ordering and interpretation of radiologic tests, discussion with consultants/patient's family, and monitoring for potential decompensation. Interventions were performed as documented. MEDICAL DECISION MAKING External documents reviewed: nursing notes this encounter, patient medical records available in [facility] locally or with care everywhere Medical Decision Making Patient is a 53-year-old male who presents with complaints of chronic right hip pain, nausea, vomiting and concerns for alcohol withdrawal. On exam patient is well-appearing, nontoxic. Vital signs remarkable for tachycardia. Will plan for basic labs, lipase ethanol level. Will plan for Zofran, IV fluids and Toradol. ED Course as of 12/06/23 0351 Time: 12/05 206 Comment: I do not feel that a repeat x-ray is indicated at this time is this is a chronic ongoing issue for the patient he had an x-ray on 12/03 with no new trauma or injury. Time: 12/05 218 Value: ALCOHOL, ETHYL, SERUM: 100 Comment: (Reviewed) Time: 12/05 225 Comment: CIWA score 8 Time: 12/06 227 Value: LIPASE(!): 476 Comment: (Reviewed) Time: 12/06 235 Comment: Patient continued to have vomiting despite Zofran, will plan for Phenergan. Given his CIWA score, CIWA score and Ativan was ordered. Time: 12/06 235 Comment: I do not feel that a CT abdomen pelvis is indicated at this time as abdomen is benign. I do feel however that given his CIWA score at this time, early signs of alcohol withdrawal that he does need admitted to the hospital for further management of his alcohol withdrawal symptoms. Time: 12/05 349 Value: TROPONIN: 0.014 Comment: Plan for T3 although low suspicion for ACS Time: 12/05 350 Comment: Discussed case with hospitalist who is agreeable for admission. Amount and/or Complexity of Data Reviewed Labs: ordered. Decision-making details documented in ED Course. ECG/medicine tests: ordered. Risk Prescription drug management. Decision regarding hospitalization. Shared decision making: Discussed plan of care and follow up plan with patient Code status if being admitted: 1. Chronic right hip pain 2. Alcohol withdrawal syndrome with complication Hector EdwardsDO 12/06/23 0173 Pt to ED via EMS c/o chronic R hip pain and alcohol detox . Vomiting on arrival. documented in this encounter [employer] Phone: 12-06-2023 Emergency department Note Chief Complaint Patient presents with Hip Pain Angella Fernandez is a 53 y.o. male who presented with complaints of chronic right hip pain and concerns for alcohol withdrawal. Patient was seen and evaluated on 12/03 for similar complaints and was admitted to the hospital at that time. X-ray of his right hip showed worsening degenerative arthritis with concerns for possible osteonecrosis. Ortho was consulted and they recommended outpatient MRI, multimodal pain control and avoiding narcotics. Patient recently went through alcohol withdrawal 2 weeks ago at [facility]. Per the discharge summary the hospitalist discuss risks and benefits of inpatient phenobarbital taper and the patient would prefer to hold off at that time. Patient was discharged on 12/04. He states that his right hip pain continues. Denies any new injuries trauma or falls. He states that he felt shaky today and was concerned that he was going through withdrawals and so he drank about 5-6 drinks of alcohol, whiskey. Patient is unsure of time of last drink but does state it was sometime today. He then states he began having some nausea nonbloody nonbilious emesis that he states occurred because he took his diclofenac on an empty stomach. Denies any fever, chest pain, shortness O breath, lightheadedness, dizziness. Past Medical History: Diagnosis Date Alcohol withdrawal seizures Bradycardia COVID-19 09/2021 Essential hypertension, benign Migraine Osteoarthritis 09/2023 Right hip Spondylosis, cervical Past Surgical History: Procedure Laterality Date ORCHIECTOMY LAPAROSCOPIC TONSILLECTOMY Family History Problem Relation Age of Onset Other - Specify Mother pancreatitis Liver Disease Father No known problems Sister No known problems Brother No known problems Brother No known problems Son No Known Allergies Social History Socioeconomic History Marital status: Spouse name: Not on file Number of children: Not on file Years of education: Not on file Highest education level: Not on file Occupational History Not on file Tobacco Use Smoking status: Every Day Current packs/day: 0.50 Types: Cigarettes Smokeless tobacco: Never Tobacco comments: quit 2013 Vaping Use Vaping status: Never Used Substance and Sexual Activity Alcohol use: Yes Alcohol/week: 3.0 standard drinks of alcohol Types: 3 Shots of liquor per week Comment: Hx of binge drinking/withdrawal/seizures Drug use: Not Currently Types: Marijuana Sexual activity: Not on file Other Topics Concern Not on file Social History Narrative Not on file Social Determinants of Health Financial Resource Strain: Not on file Food Insecurity: No Food Insecurity (12/04/2023) Hunger Vital Sign Worried About Running Out of Food in the Last Year: Never true Ran Out of Food in the Last Year: Never true Transportation Needs: No Transportation Needs (12/04/2023) PRAPARE - Transportation Lack of Transportation (Medical): No Lack of Transportation (Non-Medical): No Physical Activity: Not on file Stress: Not on file Social Connections: Not on file Intimate Partner Violence: Not At Risk (12/04/2023) Humiliation, Afraid, Rape, and Kick questionnaire Fear of Current or Ex-Partner: No Emotionally Abused: No Physically Abused: No Sexually Abused: No Housing Stability: High Risk (12/04/2023) Housing Stability Vital Sign Unable to Pay for Housing in the Last Year: No Number of Places Lived in the Last Year: 1 Unstable Housing in the Last Year: Yes Review of Systems Constitutional: Negative for activity change, appetite change, fatigue and fever. Respiratory: Negative for shortness of breath. Cardiovascular: Negative for chest pain. Gastrointestinal: Positive for nausea and vomiting. Negative for abdominal pain, constipation and diarrhea. Musculoskeletal: Positive for arthralgias. Skin: Negative for wound. Neurological: Negative for seizures, weakness, light-headedness, numbness and headaches. Psychiatric/Behavioral: Negative for confusion. All other systems reviewed and are negative. Physical Exam ED Triage Vitals Enc Vitals Group BP 12/06/238 104/81 Pulse (Heart Rate) 12/06/23135 95 Resp Rate 12/06/23135 18 Temp 12/06/23137 97 F (36.1 C) Temp src -- O2 Sat (%) 03/09/24 0136 100 % Weight 12/06/23 0137 99.8 kg (220 lb) Height 12/06/23 013 1.803 m (5' 11 ) Head Circumference -- Peak Flow -- Pain Score -- Pain Loc -- Pain Edu? -- Excl. in GC? -- Vitals: 12/06/23 0136 12/06/23 0137 12/06/23 0138 12/06/23 0300 BP: 104/81 (!) 145/91 Pulse: 95 127 112 Resp: 18 18 Temp: 97 degrees F (36.1 degrees C) SpO2: 100% 92% Weight: 99.8 kg (220 lb) Height: 1.803 m (5' 11 ) Physical Exam Vitals and nursing note reviewed. Constitutional: General: He is not in acute distress. Appearance: Normal appearance. He is not ill-appearing or toxic-appearing. Comments: Smells of alcohol HENT: Head: Normocephalic and atraumatic. Nose: Nose normal. Mouth/Throat: Comments: Mild tongue fasciculations Cardiovascular: Rate and Rhythm: Normal rate and regular rhythm. Pulses: Normal pulses. Heart sounds: Normal heart sounds. Pulmonary: Effort: Pulmonary effort is normal. No respiratory distress. Breath sounds: Normal breath sounds. No wheezing or rales. Abdominal: General: Abdomen is flat. There is no distension. Palpations: Abdomen is soft. Tenderness: There is no abdominal tenderness. There is no guarding or rebound. Musculoskeletal: General: No swelling or tenderness. Normal range of motion. Comments: No bony deformity, does have some pain with flexion and extension of the hip, pelvis stable, neurovascularly intact, compartment soft Skin: General: Skin is warm and dry. Capillary Refill: Capillary refill takes less than 2 seconds. Neurological: Mental Status: He is alert and oriented to person, place, and time. Mental status is at baseline. Psychiatric: Behavior: Behavior normal. Results for orders placed or performed during the hospital encounter of 12/06/23 CBC, EDIF, PLATELET Result Value Ref Range WBC (WHITE BLOOD COUNT) 16.67 (H) 3.12 - 10.36 10*3/uL RBC 4.97 3.59 - 6.32 10*6/uL HEMOGLOBIN (HGB) 15.7 11.4 - 17.7 g/dL HEMATOCRIT (HCT) 46.7 34.3 - 53.1 % MEAN CELL VOLUME 94.0 81.6 - 95.6 fL Mean Cell HGB 31.6 26.2 - 32.7 pg MEAN CELL HGB CONCENTRATION 33.6 31.6 - 35.0 g/dL PLATELET COUNT 300 150 - 375 10*3/uL RBC DISTRIBUTION 13.5 11.4 - 14.4 % MEAN PLATELET VOLUME 8.6 (L) 8.9 - 11.5 fL NEUTROPHIL % 86.9 (H) 36.0 - 66.0 % LYMPHOCYTES % 8.4 (L) 24.0 - 44.0 % MONOCYTE % 3.7 (L) 5.0 - 12.0 % EOSINOPHILS 0.2 0.0 - 4.0 % BASOPHIL % 0.4 0.0 - 2.0 % NEUTROPHILS (ABSOLUTE) 14.49 (H) 2.00 - 7.50 10*3/uL LYMPHOCYTES, ABSOLUTE 1.40 1.00 - 4.80 10*3/uL MONOCYTES, ABSOLUTE 0.61 0.20 - 1.20 10*3/uL EOSINOPHILS, ABSOLUTE 0.03 0.00 - 0.50 10*3/uL ABSOLUTE BASOPHIL COUNT 0.07 0.00 - 0.20 10*3/uL RBC, NUCLEATED 0.0 % RBC, NUCLEATED, ABSOLUTE 0.00 0.00 - 0.50 COMPREHENSIVE METABOLIC PANEL Result Value Ref Range SODIUM 142 136 - 145 mmol/L POTASSIUM 3.4 (L) 3.5 - 5.0 mmol/L CHLORIDE 109 100 - 110 mmol/L CARBON DIOXIDE (CO2) 11.0 (L) 22.0 - 30.0 mm/Hg Glucose 116 (H) 70 - 100 mg/dL BUN 17 7 - 22 mg/dL CREATININE SERUM 1.14 0.80 - 1.50 mg/dL CALCIUM 10.2 8.4 - 10.2 mg/dL PROTEIN, TOTAL 8.0 6.0 - 8.2 g/dL Albumin 4.6 3.5 - 5.0 g/dL ALT 35 21 - 72 U/L ALKALINE PHOSPHATASE 120 38 - 126 U/L AST 45 17 - 59 U/L BILIRUBIN, TOTAL 2.1 (H) 0.2 - 1.2 mg/dL ANION GAP 22.4 mmol/L ESTIMATED GFR, NON AMER 71 >60 mL/min/1.73 m2 LIPASE Result Value Ref Range LIPASE 476 (H) 23 - 300 U/L TROPONIN Result Value Ref Range TROPONIN 0.014 0.012 - 0.120 ng/mL ALCOHOL (ETHANOL),BLOOD Result Value Ref Range ALCOHOL, ETHYL, SERUM 100 <10 mg/dL No orders to display EKG Sinus tachycardia, left axis deviation, no ST elevation or depression, T-wave inversion in aVL, does appear similar compared to prior on 12/04/2023 ED Course Upon my evaluation, this patient had high probability of imminent or life-threatening deterioration due to which required my direct attention, intervention and personal management Total minutes of critical care time spent in direct and indirect care of this critically ill patient excludes separately billable procedures. This time includes airway assessment and stabilization if indicated, ordering and interpretation of laboratory data, ordering and interpretation of radiologic tests, discussion with consultants/patient's family, and monitoring for potential decompensation. Interventions were performed as documented. MEDICAL DECISION MAKING External documents reviewed: nursing notes this encounter, patient medical records available in [facility] locally or with care everywhere Medical Decision Making Patient is a 53-year-old male who presents with complaints of chronic right hip pain, nausea, vomiting and concerns for alcohol withdrawal. On exam patient is well-appearing, nontoxic. Vital signs remarkable for tachycardia. Will plan for basic labs, lipase ethanol level. Will plan for Zofran, IV fluids and Toradol. ED Course as of 12/06/23 0351 Time: 12/05 206 Comment: I do not feel that a repeat x-ray is indicated at this time is this is a chronic ongoing issue for the patient he had an x-ray on 12/03 with no new trauma or injury. Time: 12/05 218 Value: ALCOHOL, ETHYL, SERUM: 100 Comment: (Reviewed) Time: 12/05 225 Comment: CIWA score 8 Time: 12/06 227 Value: LIPASE(!): 476 Comment: (Reviewed) Time: 12/06 235 Comment: Patient continued to have vomiting despite Zofran, will plan for Phenergan. Given his CIWA score, CIWA score and Ativan was ordered. Time: 12/06 235 Comment: I do not feel that a CT abdomen pelvis is indicated at this time as abdomen is benign. I do feel however that given his CIWA score at this time, early signs of alcohol withdrawal that he does need admitted to the hospital for further management of his alcohol withdrawal symptoms. Time: 12/05 349 Value: TROPONIN: 0.014 Comment: Plan for T3 although low suspicion for ACS Time: 12/05 350 Comment: Discussed case with hospitalist who is agreeable for admission. Amount and/or Complexity of Data Reviewed Labs: ordered. Decision-making details documented in ED Course. ECG/medicine tests: ordered. Risk Prescription drug management. Decision regarding hospitalization. Shared decision making: Discussed plan of care and follow up plan with patient Code status if being admitted: 1. Chronic right hip pain 2. Alcohol withdrawal syndrome with complication Hector Edwards DO 12/06/23351 Pt to ED via EMS c/o chronic R hip pain and alcohol detox . Vomiting on arrival. documented in this encounter [facility] Work Phone: 12-06-2023 Emergency department Note Pt to ED via EMS c/o chronic R hip pain and alcohol detox . Vomiting on arrival. [facility] 12-05-2023 Hospital course Narrative [facility] Medicine / Discharge Summary Angella Fernandez Account: [id number] Admitted: 12/04/2023 Discharge Date/Time: 12/05/23 / 12:49 PM Handoff to PCP [facility] PCP Handoff: PCP to address the following: - encourage alcohol cessation, monitor for s/s withdrawal. - needs close follow up with ortho - continue follow-up with pain mgt Clinical Summary Angella Fernandez is a 53 y.o. male with a PMH of alcohol use, recent admission 10/23-10/29/23 for NSTEMI who presented to 12/04/2023 with R hip pain and impending alcohol withdrawal. Alcohol Withdrawal: last drink 10/04/23. Recently went through alcohol withdrawal 2 weeks ago at [facility], was not on phenobarbital taper per patient. States has hx binge drinking which was worse recently due to abdominal pain. Not triggering CIWA. Discussed risks vs benefits of inpatient phenobarb taper, would prefer to hold off for now. Education provided, advised to monitor closely for alcohol withdrawal. Cessation encouraged. Would add vitamins outpatient if he continues to drink. R Hip Pain: Ongoing since September. XR showed worsening degenerative arthritis, concern for osteonecrosis. Outpatient MRI recommended. ED discussed with Ortho, recommendation for Toradol 10mg every 6 hours and outpatient follow up. Multimodal pain control, PT. Avoiding narcotics due sedation risks with alcohol use. Continue home flexeril and diclofenac at discharge. Close ortho follow up. Hypernatremia: Admit Na 148, likely due to dehydration. Resolved with fluids. Tobacco Use: Current 0.5PPD smoker, NRT ordered. Obesity: Body mass index is 30.68 kg/m . Code Status: Full confirmed with patient. Disposition: Home Discharge Medications Medication List CONTINUE taking these medications amLODIPine 10 MG TABS Commonly known as: NORVASC TAKE 1 TABLET BY MOUTH DAILY Cyclobenzaprine 10 MG TABS Commonly known as: FLEXERIL diclofenac EC [address] tablet Commonly known as: VOLTAREN lidocaine 5 % PTCH patch Commonly known as: LIDODERM Place 2 patches on skin every 24 hours. Max of 12 hours of application then remove. Thera-M TABS Take 1 tablet by mouth daily. ASK your doctor about these medications Atorvastatin 40 MG TABS Commonly known as: LIPITOR Take 1 tablet by mouth daily. Physician(s) Family: Apolinar Cameron II (Inactive), , Address: [address] [place] [address] / [place] [address] Future Appointments Date Time Provider Department Center 12/11/2023 1:00 PM Mariia Govea MD [address] [place] [address] 12/31/2023 9:30 AM Teresa Mo MD [address] [place] [address] Follow Up: Apolinar Cameron II, DO [address] [phone] Follow up Call on Friday to schedule your hospital follow up in 7-10 days Additional Information: Patient seen and examined day of discharge. For more information regarding patient's care, including complete radiology reports, please contact [facility] Medical Records at . Patient instructions, including activity, were given to the patient/family at discharge. Please see the After Visit Summary in the medical record for details. Evaluated the patient on the day of discharge. They are being discharged in stable condition. Discussed discharge plan with the patient, who is in agreement. Time spent on discharge: > 30 Minutes Completed by: Amy Odom DO on 12/05/23, 12:49 PM documented in this encounter [facility] Work Phone: 12-05-2023 Hospital course Narrative [facility] Medicine / Discharge Summary Angella Fernandez Account: [id number] Admitted: 12/04/2023 Discharge Date/Time: 12/05/23 / 12:49 PM Handoff to PCP [facility] PCP Handoff: PCP to address the following: - encourage alcohol cessation, monitor for s/s withdrawal. - needs close follow up with ortho - continue follow-up with pain mgt Clinical Summary Angella Fernandez is a 53 y.o. male with a PMH of alcohol use, recent admission 10/23-10/29/23 for NSTEMI who presented to 12/04/2023 with R hip pain and impending alcohol withdrawal. Alcohol Withdrawal: last drink 10/04/23. Recently went through alcohol withdrawal 2 weeks ago at [facility], was not on phenobarbital taper per patient. States has hx binge drinking which was worse recently due to abdominal pain. Not triggering CIWA. Discussed risks vs benefits of inpatient phenobarb taper, would prefer to hold off for now. Education provided, advised to monitor closely for alcohol withdrawal. Cessation encouraged. Would add vitamins outpatient if he continues to drink. R Hip Pain: Ongoing since September. XR showed worsening degenerative arthritis, concern for osteonecrosis. Outpatient MRI recommended. ED discussed with Ortho, recommendation for Toradol 10mg every 6 hours and outpatient follow up. Multimodal pain control, PT. Avoiding narcotics due sedation risks with alcohol use. Continue home flexeril and diclofenac at discharge. Close ortho follow up. Hypernatremia: Admit Na 148, likely due to dehydration. Resolved with fluids. Tobacco Use: Current 0.5PPD smoker, NRT ordered. Obesity: Body mass index is 30.68 kg/m . Code Status: Full confirmed with patient. Disposition: Home Discharge Medications Medication List CONTINUE taking these medications amLODIPine 10 MG TABS Commonly known as: NORVASC TAKE 1 TABLET BY MOUTH DAILY Cyclobenzaprine 10 MG TABS Commonly known as: FLEXERIL diclofenac EC [address] tablet Commonly known as: VOLTAREN lidocaine 5 % PTCH patch Commonly known as: LIDODERM Place 2 patches on skin every 24 hours. Max of 12 hours of application then remove. Thera-M TABS Take 1 tablet by mouth daily. ASK your doctor about these medications Atorvastatin 40 MG TABS Commonly known as: LIPITOR Take 1 tablet by mouth daily. Physician(s) Family: Apolinar Cameron II (Inactive), , Address: [address] [place] [address] / [place] [address] Future Appointments Date Time Provider Department Center 12/11/2023 1:00 PM Mariia Govea MD [address] [place] [address] 12/31/2023 9:30 AM Teresa Mo MD [address] [place] [address] Follow Up: Apolinar Cameron II, DO [address] [place] [address] Follow up Call on Friday to schedule your hospital follow up in 7-10 days Additional Information: Patient seen and examined day of discharge. For more information regarding patient's care, including complete radiology reports, please contact [facility] Medical Records at . Patient instructions, including activity, were given to the patient/family at discharge. Please see the After Visit Summary in the medical record for details. Evaluated the patient on the day of discharge. They are being discharged in stable condition. Discussed discharge plan with the patient, who is in agreement. Time spent on discharge: > 30 Minutes Completed by: Amy Odom DO on 12/05/23, 12:49 PM documented in this encounter [facility] Phone: 12-05-2023 Miscellaneous Notes Discharge instructions complete at this time, signs and symptoms to review, medications, and follow ups reviewed. IV removed per protocol. All questions answered. \ Spring Sexton RN Problem: Patient Care Overview Goal: Plan of Care Review Outcome: Progressing Flowsheets (Taken 12/04/20231839) Plan Of Care Reviewed With: patient Goal: Individualization & Mutuality Outcome: Progressing Goal: Discharge Needs Assessment Outcome: Progressing Goal: Interdisciplinary Rounds/Family Conf Outcome: Progressing Problem: Dysphagia (Adult) Goal: Identify Related Risk Factors and Signs and Symptoms Description: Related risk factors and signs and symptoms are identified upon initiation of Human Response Clinical Practice Guideline (CPG) Outcome: Completed Goal: Functional/Safe Swallow Description: Patient will demonstrate the desired outcomes by discharge/transition of care. Outcome: Completed Goal: Compensatory Techniques to Improve Safety/Function with Swallowing Description: Patient will demonstrate the desired outcomes by discharge/transition of care. Outcome: Completed Problem: Pain, Chronic (Adult) Goal: Identify Related Risk Factors and Signs and Symptoms Description: Related risk factors and signs and symptoms are identified upon initiation of Human Response Clinical Practice Guideline (CPG) Outcome: Not Progressing Flowsheets (Taken 12/04/20231839) Related Risk Factors (Chronic Pain): disease process pain control inadequate Signs and Symptoms (Chronic Pain): verbalization of pain descriptors Goal: Acceptable Pain Control/Comfort Level Description: Patient will demonstrate the desired outcomes by discharge/transition of care. Outcome: Not Progressing Problem: Alcohol Withdrawal Acute, Risk/Actual (Adult) Goal: Signs and Symptoms of Listed Potential Problems Will be Absent, Minimized or Managed (Alcohol Withdrawal Acute, Risk/Actual) Description: Signs and symptoms of listed potential problems will be absent, minimized or managed by discharge/transition of care (reference Alcohol Withdrawal Acute, Risk/Actual (Adult) CPG). Outcome: Progressing Flowsheets (Taken 12/04/20231839) Problems Assessed (Alcohol Withdrawal Syndrome): all Problems Present (Alcohol Withdrawal Syndrome): effects of MARLENA (alcohol withdrawal syndrome) including DTs (delirium tremens) Note: Continues on ciwa documented in this encounter [employer] Phone: 12-05-2023 Miscellaneous Notes Discharge instructions complete at this time, signs and symptoms to review, medications, and follow ups reviewed. IV removed per protocol. All questions answered. \ pSring Sexton RN Problem: Patient Care Overview Goal: Plan of Care Review Outcome: Progressing Flowsheets (Taken 12/04/20231839) Plan Of Care Reviewed With: patient Goal: Individualization & Mutuality Outcome: Progressing Goal: Discharge Needs Assessment Outcome: Progressing Goal: Interdisciplinary Rounds/Family Conf Outcome: Progressing Problem: Dysphagia (Adult) Goal: Identify Related Risk Factors and Signs and Symptoms Description: Related risk factors and signs and symptoms are identified upon initiation of Human Response Clinical Practice Guideline (CPG) Outcome: Completed Goal: Functional/Safe Swallow Description: Patient will demonstrate the desired outcomes by discharge/transition of care. Outcome: Completed Goal: Compensatory Techniques to Improve Safety/Function with Swallowing Description: Patient will demonstrate the desired outcomes by discharge/transition of care. Outcome: Completed Problem: Pain, Chronic (Adult) Goal: Identify Related Risk Factors and Signs and Symptoms Description: Related risk factors and signs and symptoms are identified upon initiation of Human Response Clinical Practice Guideline (CPG) Outcome: Not Progressing Flowsheets (Taken 12/04/20231839) Related Risk Factors (Chronic Pain): disease process pain control inadequate Signs and Symptoms (Chronic Pain): verbalization of pain descriptors Goal: Acceptable Pain Control/Comfort Level Description: Patient will demonstrate the desired outcomes by discharge/transition of care. Outcome: Not Progressing Problem: Alcohol Withdrawal Acute, Risk/Actual (Adult) Goal: Signs and Symptoms of Listed Potential Problems Will be Absent, Minimized or Managed (Alcohol Withdrawal Acute, Risk/Actual) Description: Signs and symptoms of listed potential problems will be absent, minimized or managed by discharge/transition of care (reference Alcohol Withdrawal Acute, Risk/Actual (Adult) CPG). Outcome: Progressing Flowsheets (Taken 12/04/2023 184) Problems Assessed (Alcohol Withdrawal Syndrome): all Problems Present (Alcohol Withdrawal Syndrome): effects of MARLENA (alcohol withdrawal syndrome) including DTs (delirium tremens) Note: Continues on ciwa documented in this encounter [facility] [employer] Phone: 12-05-2023 Nurse Note Discharge instructions complete at this time, signs and symptoms to review, medications, and follow ups reviewed. IV removed per protocol. All questions answered. \ Spring Sexton RN [facility] 12-05-2023 History of Presen t illness Narrative Acute Care Physical Therapy Evaluation and Discharge AM-PAC score(s): PRIOR LEVEL AM-PAC Mobility Raw Score: 24 CURRENT AM-PAC Mobility Raw Score: 24 Discharge Destination Recommendation: Home with Outpatient Rehab Services (R hip pain) Barriers to discharge home: None Anticipated Equipment Needs at Discharge (PT Eval): none Current therapy frequency recommendation in acute: Therapy Frequency: no therapy warranted Assessment Patient admitted for: R hip pain Reason for referral: weakness Assessment: Pt presented to with increased R hip pain and alcohol intoxication. Pt with recent rehab at [facility] for alcocol. Received a steroid injection to R hip 1.5 weeks ago and reports his hip pain has been worse since getting the injection. He reports drinking whiskey to help with the pain because he was not able to move or stand without pain increasing to 10/10. Pt reports that his pain is now much more manageable and demonstrates ability to ambulate with no AD independently. Recommend OP PT for management of R hip pain. Subjective Subjective information: Pt reports feeling exhausted and has not been able to get more than a few mins of sleep at a time. General Information Patient Safety Communication Prior to Visit: Nursing Existing Precautions/Restrictions: no known precautions/restrictions (READ-ONLY/RETIRED) Respiratory Status O2 Device: room air Home Setting Residence: House First floor setup: bedroom Number of stairs to enter home: 3 Number of stairs in home: 0 Mobility Equipment Available: straight cane Previous Level of Function Prior level ADL Overview: Independent with all ADLs Bed Mobility/Transfers: independent Ambulation Skills: independent Assistive Device: none used Level of Ambulation: community Cognition Overall Cognitive Status: Within Functional Limits RLE Assessment RLE Assessment: Within Functional Limits LLE Assessment LLE Assessment: Within Functional Limits Sitting Balance Static Sitting-Level of Assistance: Independent Dynamic Sitting-Level of Assistance: Independent Standing Balance Static Standing-Level of Assistance: Independent Dynamic Standing-Level of Assistance: Independent Supine to Sit Mobility Vigo Level: Supine->Sit: independent Sit to Supine Mobility Vigo Level: Sit->Supine: independent Sit to Stand Transfer Vigo Level: Sit->Stand: independent Stand to Sit Transfer Vigo Level: Stand->Sit: independent Gait Assessment Vigo Level: Gait: independent Ambulation Distance (Feet): 30 Gait Deviations Identified: antalgic Co-evaluation/co-treatment performed?: No simultaneous skilled care performed Criteria for Skilled Therapeutic Interventions Met (PT Eval): no Global Functional Limitations: Ambulation/locomotion pain Rehab Potential (PT Eval): excellent Total Visit Time: 10 minutes Eval Complexity Assessment History Components: Moderate (1-2 personal factors and/or comorbidities) Examination of Body System(s) Components: Low (Addressing 1-2 elements) Clinical Presentation: Stable - unchanging or predictable (Low) Clinical Decision Making (complexity): Low PT Evaluation and Treatment Time PT Evaluation (Low) Time Entry: 10 Meme Muniz PT --Upon discontinuation of Acute Care Physical Therapy Services, or patient discharge from the hospital, this note represents the current Physical Therapy Discharge Summary. 12/05/23 1019 Referral Information Arrived From emergency department Final Discharge Planning Discharge Disposition Home CM/MISTY AVS Portion Completed Yes Plan Plan Discharge home with pcp and ortho follow up Patient/Family In Agreement With Plan yes Transport Request Mode of Transfer Private Vehicle Inpatient Final Discharge Note Patient discussed in medical rounds for discharge to home. news operations manager met with the patient/family/spouse in the patient's room to discuss final discharge plan. Services for Discharge Ambulatory health care services (referrals/ follow ups with PCP or specialists) yes - pcp and ortho Rehabilitation services na Hospice or Palliative Care Services:no Post-hospital Extended Care Services: no Home Health Care Services:no Non-health care services: no Community based services: no Consults with Final Discharge Recommendations na Lines/Tubes/Drains/Wounds/Suppli es na Medications No barriers anticipated in obtaining discharge medications. No prior authorizations anticipated. Reconciliation of medications to be completed by the medical team. No new medications Durable Medical Equipment Uses a cane Transportation Transportation will be provided by family. Education Discharge education provided by the medical team and updated in the After Visit Summary. Follow Up(s) Any follow up requested by the medical team arranged. Appointments in the After Visit Summary. Follow up with Apolinar Cameron, Call on Friday to schedule your hospital follow up in 7-[address] [facility] [address] DEC 10 NEW PATIENT-MEM with Mariia Govea MD Nov 1:00 PM (Arrive by 12:45 PM) [facility] [address] [place] C [facility] [address] DEC 30 NEW PATIENT-MEM with Teresa Mo MD Friday 9:30 AM (Arrive by 9:15 AM) [facility] [address] [facility] [address] Arrive at: Please enter through the Outpatient Pavilion - Entrance E The Hall Tender has updated the patient's nurse regarding the final discharge plan. No other discharge needs have been identified at this time. This plan was developed in collaboration with the patient and caregiver/preferred decision maker. Patient and family are in agreement with final discharge plan. Please refer to AVS and medical record for additional information. Patient instructed to call with questions. CMRN will continue to follow with medical team for any additional discharge planning needs. Vangie Medellin RNforeman/pile driving and erection RN For assistance on evenings (after 4:30pm) please call the hospital shell freezing machine operator at and have the Hall Tender paediatric surgeon paged. On weekends from 6am to 4pm please contact the Rounding Nurse at Focused Assessment for Discharge Planning Patient is here for Right hip pain, alcohol use. . Advanced Care Planning Assessment HCPOA Agent(s): na Legal Next of Kin: spouse No- patient declines information, educated on [facility] Financial Resources Insurance: Yes Prescription Coverage: Yes Resources Needed: Yes Resources Provided: Mental health resources for alcohol cessation/rehab Living Environment and Support System Patient lives home with spouse and is independent with ADLs and drives. Patient Resources Prior to Admission Post-acute Services: no Community Resources: no DME: yes - can Patient's goal for discharge is get rid of hip pain. Is the patient able to be cared for in their living environment prior to admission? yes- no additional needs identified Patient Care Needs upon Discharge Specialized medical equipment and related supplies: no Pharmaceuticals and related supplies: yes- no barriers anticipated Post-hospital services: Ambulatory health care services (referrals/ follow ups with PCP or specialists) yes - pcp and orthopedics Rehabilitation services na Hospice or Palliative Care Services:no Post-hospital Extended Care Services: no Home Health Care Services:no Non-health care services: no Community based services: no Transportation will be provided by family. The Hall Tender has updated the patient's nurse Andre regarding the final discharge plan. No other discharge needs have been identified at this time. This plan was developed in collaboration with the patient and caregiver/preferred decision maker. Patient and family are in agreement with final discharge plan. Please refer to AVS and medical record for additional information. Patient instructed to call with questions. CMRN will continue to follow with medical team for any additional discharge planning needs. Vangie Medellin RNforeman/pile driving and erection RN For assistance on evenings (after 4:30pm) please call the hospital shell freezing machine operator at and have the Hall Tender paediatric surgeon paged. On weekends from 6am to 4pm please contact the Case Management Nurse at documented in this encounter [employer] Phone: 12-05-2023 History of Presen t illness Narrative Acute Care Physical Therapy Evaluation and Discharge AM-PAC score(s): PRIOR LEVEL AM-PAC Mobility Raw Score: 24 CURRENT AM-PAC Mobility Raw Score: 24 Discharge Destination Recommendation: Home with Outpatient Rehab Services (R hip pain) Barriers to discharge home: None Anticipated Equipment Needs at Discharge (PT Eval): none Current therapy frequency recommendation in acute: Therapy Frequency: no therapy warranted Assessment Patient admitted for: R hip pain Reason for referral: weakness Assessment: Pt presented to with increased R hip pain and alcohol intoxication. Pt with recent rehab at [facility] for alcocol. Received a steroid injection to R hip 1.5 weeks ago and reports his hip pain has been worse since getting the injection. He reports drinking whiskey to help with the pain because he was not able to move or stand without pain increasing to 10/10. Pt reports that his pain is now much more manageable and demonstrates ability to ambulate with no AD independently. Recommend OP PT for management of R hip pain. Subjective Subjective information: Pt reports feeling exhausted and has not been able to get more than a few mins of sleep at a time. General Information Patient Safety Communication Prior to Visit: Nursing Existing Precautions/Restrictions: no known precautions/restrictions (READ-ONLY/RETIRED) Respiratory Status O2 Device: room air Home Setting Residence: House First floor setup: bedroom Number of stairs to enter home: 3 Number of stairs in home: 0 Mobility Equipment Available: straight cane Previous Level of Function Prior level ADL Overview: Independent with all ADLs Bed Mobility/Transfers: independent Ambulation Skills: independent Assistive Device: none used Level of Ambulation: community Cognition Overall Cognitive Status: Within Functional Limits RLE Assessment RLE Assessment: Within Functional Limits LLE Assessment LLE Assessment: Within Functional Limits Sitting Balance Static Sitting-Level of Assistance: Independent Dynamic Sitting-Level of Assistance: Independent Standing Balance Static Standing-Level of Assistance: Independent Dynamic Standing-Level of Assistance: Independent Supine to Sit Mobility Vigo Level: Supine->Sit: independent Sit to Supine Mobility Vigo Level: Sit->Supine: independent Sit to Stand Transfer Vigo Level: Sit->Stand: independent Stand to Sit Transfer Vigo Level: Stand->Sit: independent Gait Assessment Vigo Level: Gait: independent Ambulation Distance (Feet): 30 Gait Deviations Identified: antalgic Co-evaluation/co-treatment performed?: No simultaneous skilled care performed Criteria for Skilled Therapeutic Interventions Met (PT Eval): no Global Functional Limitations: Ambulation/locomotion pain Rehab Potential (PT Eval): excellent Total Visit Time: 10 minutes Eval Complexity Assessment History Components: Moderate (1-2 personal factors and/or comorbidities) Examination of Body System(s) Components: Low (Addressing 1-2 elements) Clinical Presentation: Stable - unchanging or predictable (Low) Clinical Decision Making (complexity): Low PT Evaluation and Treatment Time PT Evaluation (Low) Time Entry: 10 Meme Muniz PT --Upon discontinuation of Acute Care Physical Therapy Services, or patient discharge from the hospital, this note represents the current Physical Therapy Discharge Summary. 12/05/23 1019 Referral Information Arrived From emergency department Final Discharge Planning Discharge Disposition Home CM/MISTY AVS Portion Completed Yes Plan Plan Discharge home with pcp and ortho follow up Patient/Family In Agreement With Plan yes Transport Request Mode of Transfer Private Vehicle Inpatient Final Discharge Note Patient discussed in medical rounds for discharge to home. news operations manager met with the patient/family/spouse in the patient's room to discuss final discharge plan. Services for Discharge Ambulatory health care services (referrals/ follow ups with PCP or specialists) yes - pcp and ortho Rehabilitation services na Hospice or Palliative Care Services:no Post-hospital Extended Care Services: no Home Health Care Services:no Non-health care services: no Community based services: no Consults with Final Discharge Recommendations na Lines/Tubes/Drains/Wounds/Suppli es na Medications No barriers anticipated in obtaining discharge medications. No prior authorizations anticipated. Reconciliation of medications to be completed by the medical team. No new medications Durable Medical Equipment Uses a cane Transportation Transportation will be provided by family. Education Discharge education provided by the medical team and updated in the After Visit Summary. Follow Up(s) Any follow up requested by the medical team arranged. Appointments in the After Visit Summary. Follow up with Apolinar Cameron DO Call on Friday to schedule your hospital follow up in 7-10 days [address] [facility] [address] [place] [id number] DEC 10 NEW PATIENT-MEM with Mariia Govea MD Nov 1:00 PM (Arrive by 12:45 PM) [facility] at [address] [address] DEC 30 NEW PATIENT-MEM with Teresa Mo MD Friday 9:30 AM (Arrive by 9:15 AM) [facility] [address] [place] [address] 2nd Floor [facility] [id number] Arrive at: Please enter through the Outpatient Pavilion - Entrance E The Hall Tender has updated the patient's nurse regarding the final discharge plan. No other discharge needs have been identified at this time. This plan was developed in collaboration with the patient and caregiver/preferred decision maker. Patient and family are in agreement with final discharge plan. Please refer to AVS and medical record for additional information. Patient instructed to call with questions. CMRN will continue to follow with medical team for any additional discharge planning needs. Vangie Medellin RNforeman/pile driving and erection RN For assistance on evenings (after 4:30pm) please call the hospital shell freezing machine operator at and have the Hall Tender paediatric surgeon paged. On weekends from 6am to 4pm please contact the Rounding Nurse at Focused Assessment for Discharge Planning Patient is here for Right hip pain, alcohol use. . Advanced Care Planning Assessment HCPOA Agent(s): na Legal Next of Kin: spouse No- patient declines information, educated on [facility] Financial Resources Insurance: Yes Prescription Coverage: Yes Resources Needed: Yes Resources Provided: Mental health resources for alcohol cessation/rehab Living Environment and Support System Patient lives home with spouse and is independent with ADLs and drives. Patient Resources Prior to Admission Post-acute Services: no Community Resources: no DME: yes - can Patient's goal for discharge is get rid of hip pain. Is the patient able to be cared for in their living environment prior to admission? yes- no additional needs identified Patient Care Needs upon Discharge Specialized medical equipment and related supplies: no Pharmaceuticals and related supplies: yes- no barriers anticipated Post-hospital services: Ambulatory health care services (referrals/ follow ups with PCP or specialists) yes - pcp and orthopedics Rehabilitation services na Hospice or Palliative Care Services:no Post-hospital Extended Care Services: no Home Health Care Services:no Non-health care services: no Community based services: no Transportation will be provided by family. The Hall Tender has updated the patient's nurse Andre regarding the final discharge plan. No other discharge needs have been identified at this time. This plan was developed in collaboration with the patient and caregiver/preferred decision maker. Patient and family are in agreement with final discharge plan. Please refer to AVS and medical record for additional information. Patient instructed to call with questions. CMRN will continue to follow with medical team for any additional discharge planning needs. Vangie Medellin RNforeman/pile driving and erection RN For assistance on evenings (after 4:30pm) please call the hospital shell freezing machine operator at and have the Hall Tender paediatric surgeon paged. On weekends from 6am to 4pm please contact the Case Management Nurse at documented in this encounter [facility] Phone: 12-05-2023 [facility] Discharg e instructions Vangie Medellin RN - 12/05/2023 10:16 AM EST As tolerated Vangie Medellin RN - 12/05/2023 10:16 AM EST Regular Vangie Medellin RN - 12/05/2023 10:16 AM EST Notify your provider or go to the nearest Emergency Department if you experience any of the following: Temperature greater than 101 Pain uncontrolled by medications, worsening pain or new pain Weight gain greater than 3 lbs in 48 hours Chest discomfort not relieved by 3 nitroglycerin tabs, 5 minutes apart (if prescribed by your physician). Shortness of breath, with or without chest discomfort Extreme dizziness or fainting Persistent vomiting or diarrhea The following attachments cannot be sent through Care Everywhere.Pain and Pain Control ([facility]) (Marshallese)Hip Pain (Marshallese)Alcohol Detoxification and Withdrawal (Marshallese)documented in this encounter [facility] Phone: 12-05-2023 [facility] Discharg e instructions Vangie Medellin RN - 12/05/2023 10:16 AM EST As tolerated Vangie Medellin RN - 12/05/2023 10:16 AM EST Regular Vangie Medellin RN - 12/05/2023 10:16 AM EST Notify your provider or go to the nearest Emergency Department if you experience any of the following: Temperature greater than 101 Pain uncontrolled by medications, worsening pain or new pain Weight gain greater than 3 lbs in 48 hours Chest discomfort not relieved by 3 nitroglycerin tabs, 5 minutes apart (if prescribed by your physician). Shortness of breath, with or without chest discomfort Extreme dizziness or fainting Persistent vomiting or diarrhea The following attachments cannot be sent through Care Everywhere.Pain and Pain Control ([facility]) (Marshallese)Hip Pain (Marshallese)Alcohol Detoxification and Withdrawal (Marshallese)documented in this encounter [facility] Phone: 12-04-2023 Plan of care note Problem: Patient Care Overview Goal: Plan of Care Review Outcome: Progressing Flowsheets (Taken 12/04/20231839) Plan Of Care Reviewed With: patient Goal: Individualization & Mutuality Outcome: Progressing Goal: Discharge Needs Assessment Outcome: Progressing Goal: Interdisciplinary Rounds/Family Conf Outcome: Progressing Problem: Dysphagia (Adult) Goal: Identify Related Risk Factors and Signs and Symptoms Description: Related risk factors and signs and symptoms are identified upon initiation of Human Response Clinical Practice Guideline (CPG) Outcome: Completed Goal: Functional/Safe Swallow Description: Patient will demonstrate the desired outcomes by discharge/transition of care. Outcome: Completed Goal: Compensatory Techniques to Improve Safety/Function with Swallowing Description: Patient will demonstrate the desired outcomes by discharge/transition of care. Outcome: Completed Problem: Pain, Chronic (Adult) Goal: Identify Related Risk Factors and Signs and Symptoms Description: Related risk factors and signs and symptoms are identified upon initiation of Human Response Clinical Practice Guideline (CPG) Outcome: Not Progressing Flowsheets (Taken 12/04/2023 1840) Related Risk Factors (Chronic Pain): disease process pain control inadequate Signs and Symptoms (Chronic Pain): verbalization of pain descriptors Goal: Acceptable Pain Control/Comfort Level Description: Patient will demonstrate the desired outcomes by discharge/transition of care. Outcome: Not Progressing Problem: Alcohol Withdrawal Acute, Risk/Actual (Adult) Goal: Signs and Symptoms of Listed Potential Problems Will be Absent, Minimized or Managed (Alcohol Withdrawal Acute, Risk/Actual) Description: Signs and symptoms of listed potential problems will be absent, minimized or managed by discharge/transition of care (reference Alcohol Withdrawal Acute, Risk/Actual (Adult) CPG). Outcome: Progressing Flowsheets (Taken 12/04/2023 1840) Problems Assessed (Alcohol Withdrawal Syndrome): all Problems Present (Alcohol Withdrawal Syndrome): effects of MARLENA (alcohol withdrawal syndrome) including DTs (delirium tremens) Note: Continues on ciwa [facility] Work Phone: 12-04-2023 Emergency department Note Report given to Denice CORREA [facility] 12-04-2023 Emergency department Note Report given to Denice [facility] ED ATTENDING NOTE Chief Complaint: Hip Pain and Sweats HPI: Angella Fernandez is a 53 y.o. male who presents with right hip pain. Reports that has been having right hip pain, had an injection 1.5 weeks ago and follows with pain clinic. Pain clniic did not prescribe opiates so patient has been drinkign whiskey to manage pain. Patient reports that he has been in such significant pain that he has been drinking whiskey daily. He only reports 2 days of consistent drinking more than a bottle a day. He does report a history of alcohol withdrawal but usually includes only shakes but denies hallucinations. He is never required admission for DTs or seizures. The patient is very focused on his hip pain. However when I discussed pain management at home he denies taking Tylenol Motrin. He reports that he was prescribed an anti-inflammatory but he has not taken this in the last couple of days. Review of Systems: ALL OTHER SYSTEMS REVIEWED AND NEGATIVE Past Medical History: Diagnosis Date Alcohol withdrawal seizures Bradycardia COVID-19 09/2021 Essential hypertension, benign Migraine Osteoarthritis 09/2023 Right hip Spondylosis, cervical Past Surgical History: Procedure Laterality Date ORCHIECTOMY LAPAROSCOPIC TONSILLECTOMY Family History Problem Relation Age of Onset Other - Specify Mother pancreatitis Liver Disease Father No known problems Sister No known problems Brother No known problems Brother No known problems Son Social History Tobacco Use Smoking status: Every Day Current packs/day: 0.50 Types: Cigarettes Smokeless tobacco: Never Tobacco comments: quit 2013 Vaping Use Vaping status: Never Used Substance Use Topics Alcohol use: Yes Alcohol/week: 3.0 standard drinks of alcohol Types: 3 Shots of liquor per week Comment: Hx of binge drinking/withdrawal/seizures Drug use: Not Currently Types: Marijuana PHYSICAL EXAM VITAL SIGNS: were reviewed. BP (!) 169/129 Pulse 118 Temp 98.6 F (37 C) (Temporal) Resp 16 Ht 1.803 m (5' 11 ) Wt 99.8 kg (220 lb) SpO2 96% BMI 30.68 kg/m Smoking Status Every Day General: Awake, alert. In no acute distress HEENT: nontraumatic, EOMI, non-icteric, no congestion, airway open Respiratory: Normal lung exam Cardiovascular: Normal heart exam, no edema GI: Soft, nontender Musculoskeletal: back nontender Skin: warm, dry, no rash Neuro: Oriented x3. Antalgic gait, intact strength and sensation to bilat UE and LE Psych: Appropriate, cooperative, normal affect Plan/Imaging Results: No orders of the defined types were placed in this encounter. No orders to display MDM Data My EKG Interpretation Interpreted by me Rhythm: sinus Rate: [address] [place]: normal Ectopy: PVCs Conduction: normal ST Segments: no acute change T Waves: no acute change Q Waves: none Clinical Impression: no STEMI Medical Decision Making Patient was evaluated and appears generally well on exam in no acute distress. Differential includes acute illnesses including electrolyte abnormality, alcohol intoxication, alcohol withdrawal, degenerative hip disease, osteoarthritis of the hip, bursitis, fracture, contusion. The patient reports that he used to have good control of his hip pain with oral steroids but he does not know the dose that he used to be on. He has not tried any oral pain medications at home except for alcohol use. 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 When I attempted to discuss a pain management including anti-inflammatories with scheduled Tylenol the patient is not redirectable and focuses on managing his pain immediately now. He is tearful. The patient also significantly tachycardic this could be related to his pain or could also be related to potential alcohol withdrawal. For these reasons we got basic labs. The patient also was focused on his pain management and asking for more significant pain management and started reporting low chest pain. We expanded the workup including EKG that was normal. Trop and BNP negative. X-ray showed continued arthritis, however radiology also concerned for potential osteo and necrosis. Nonemergent outpatient MRI was also recommended. For potential progressive associated disease I did discuss the patient with Orthopedics whom recommended toradol 10mg q6hr and outpatient followup. While patient here had tele strip potential concern for Vfhowever patient conscious entire time. Did report sob and dizziness. Reviewed with Dr. Norwood whom reviewed and states was artifact can see ECG go through. We will keep on telemetry and repeat troponin. Repeat troponin negative. Patient while here began to score higher on CIWA for agitation and anxiety. Started him on ativan. I discussed obs/admission for alcohol withdrawal. Patient ok with this plan. After initial dose of ativan patient able to rest comfortable and nap. Oxygen decreased to 90%, he reoprts this always happens when he sleeps. He is supposed to have a formal sleep study done. Amount and/or Complexity of Data Reviewed External Data Reviewed: labs, radiology and notes. Labs: ordered. Radiology: ordered and independent interpretation performed. ECG/medicine tests: ordered and independent interpretation performed. Risk OTC drugs. Prescription drug management. This note was dictated using medical voice recognition software. Attempts at proofreading were made, but errors may occasionally still occur. Jeanie Churchill MD, PhD 12/04/23 [id number] Pt presents to the ED with c/o increased pain with his R hip, pt states. He is a pt of the pain clinic and had an injection 1.5 weeks ago. Pt admits to drinking lots and lots of whiskey to help with my pain. Last drink yesterday documented in this encounter [employer] Phone: 12-04-2023 Emergency department Note Report given to Denice CORREA ED ATTENDING NOTE Chief Complaint: Hip Pain and Sweats HPI: Angella Fernandez is a 53 y.o. male who presents with right hip pain. Reports that has been having right hip pain, had an injection 1.5 weeks ago and follows with pain clinic. Pain clniic did not prescribe opiates so patient has been drinkign whiskey to manage pain. Patient reports that he has been in such significant pain that he has been drinking whiskey daily. He only reports 2 days of consistent drinking more than a bottle a day. He does report a history of alcohol withdrawal but usually includes only shakes but denies hallucinations. He is never required admission for DTs or seizures. The patient is very focused on his hip pain. However when I discussed pain management at home he denies taking Tylenol Motrin. He reports that he was prescribed an anti-inflammatory but he has not taken this in the last couple of days. Review of Systems: ALL OTHER SYSTEMS REVIEWED AND NEGATIVE Past Medical History: Diagnosis Date Alcohol withdrawal seizures Bradycardia COVID-19 09/2021 Essential hypertension, benign Migraine Osteoarthritis 09/2023 Right hip Spondylosis, cervical Past Surgical History: Procedure Laterality Date ORCHIECTOMY LAPAROSCOPIC TONSILLECTOMY Family History Problem Relation Age of Onset Other - Specify Mother pancreatitis Liver Disease Father No known problems Sister No known problems Brother No known problems Brother No known problems Son Social History Tobacco Use Smoking status: Every Day Current packs/day: 0.50 Types: Cigarettes Smokeless tobacco: Never Tobacco comments: quit 2013 Vaping Use Vaping status: Never Used Substance Use Topics Alcohol use: Yes Alcohol/week: 3.0 standard drinks of alcohol Types: 3 Shots of liquor per week Comment: Hx of binge drinking/withdrawal/seizures Drug use: Not Currently Types: Marijuana PHYSICAL EXAM VITAL SIGNS: were reviewed. BP (!) 169/129 Pulse 118 Temp 98.6 F (37 C) (Temporal) Resp 16 Ht 1.803 m (5' 11 ) Wt 99.8 kg (220 lb) SpO2 96% BMI 30.68 kg/m Smoking Status Every Day General: Awake, alert. In no acute distress HEENT: nontraumatic, EOMI, non-icteric, no congestion, airway open Respiratory: Normal lung exam Cardiovascular: Normal heart exam, no edema GI: Soft, nontender Musculoskeletal: back nontender Skin: warm, dry, no rash Neuro: Oriented x3. Antalgic gait, intact strength and sensation to bilat UE and LE Psych: Appropriate, cooperative, normal affect Plan/Imaging Results: No orders of the defined types were placed in this encounter. No orders to display MDM Data My EKG Interpretation Interpreted by me Rhythm: sinus Rate: [address] [place]: normal Ectopy: PVCs Conduction: normal ST Segments: no acute change T Waves: no acute change Q Waves: none Clinical Impression: no STEMI Medical Decision Making Patient was evaluated and appears generally well on exam in no acute distress. Differential includes acute illnesses including electrolyte abnormality, alcohol intoxication, alcohol withdrawal, degenerative hip disease, osteoarthritis of the hip, bursitis, fracture, contusion. The patient reports that he used to have good control of his hip pain with oral steroids but he does not know the dose that he used to be on. He has not tried any oral pain medications at home except for alcohol use. 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 When I attempted to discuss a pain management including anti-inflammatories with scheduled Tylenol the patient is not redirectable and focuses on managing his pain immediately now. He is tearful. The patient also significantly tachycardic this could be related to his pain or could also be related to potential alcohol withdrawal. For these reasons we got basic labs. The patient also was focused on his pain management and asking for more significant pain management and started reporting low chest pain. We expanded the workup including EKG that was normal. Trop and BNP negative. X-ray showed continued arthritis, however radiology also concerned for potential osteo and necrosis. Nonemergent outpatient MRI was also recommended. For potential progressive associated disease I did discuss the patient with Orthopedics whom recommended toradol 10mg q6hr and outpatient followup. While patient here had tele strip potential concern for Vfhowever patient conscious entire time. Did report sob and dizziness. Reviewed with Dr. Norwood whom reviewed and states was artifact can see ECG go through. We will keep on telemetry and repeat troponin. Repeat troponin negative. Patient while here began to score higher on CIWA for agitation and anxiety. Started him on ativan. I discussed obs/admission for alcohol withdrawal. Patient ok with this plan. After initial dose of ativan patient able to rest comfortable and nap. Oxygen decreased to 90%, he reoprts this always happens when he sleeps. He is supposed to have a formal sleep study done. Amount and/or Complexity of Data Reviewed External Data Reviewed: labs, radiology and notes. Labs: ordered. Radiology: ordered and independent interpretation performed. ECG/medicine tests: ordered and independent interpretation performed. Risk OTC drugs. Prescription drug management. This note was dictated using medical voice recognition software. Attempts at proofreading were made, but errors may occasionally still occur. Jeanie Churchill MD, PhD 12/04/23 [id number] Pt presents to the ED with c/o increased pain with his R hip, pt states. He is a pt of the pain clinic and had an injection 1.5 weeks ago. Pt admits to drinking lots and lots of whiskey to help with my pain. Last drink yesterday documented in this encounter [facility] [employer] Phone: 12-04-2023 History and physical note [facility] / History and Physical Note 12/04/23 Angella Fernandez 1970 [id number] Assessment/Plan: Angella Fernandez is a 53 y.o. male with a PMH of alcohol use, recent admission 10/23-10/29/23 for NSTEMI who presented to 12/04/2023 with R hip pain and impending alcohol withdrawal. Alcohol Withdrawal: last drink 10/04/23. Recently went through alcohol withdrawal 2 weeks ago at [facility], was not on phenobarbital taper per patient. CIWA and vitamins continued. R Hip Pain: Ongoing since September. XR showed worsening degenerative arthritis, concern for osteonecrosis. Outpatient MRI recommended. ED discussed with Ortho, recommendation for Toradol 10mg every 6 hours and outpatient follow up. Multimodal pain control, PT. Avoiding narcotics due sedation risks with alcohol use. Hypernatremia: Admit Na 148, likely due to dehydration. Monitor oral intake. Tobacco Use: Current 0.5PPD smoker, NRT ordered. Obesity: Body mass index is 30.68 kg/m . Code Status: Full confirmed with patient. VTE Prophylaxis: heparin subcutaneous Current living situation: home Expected disposition: same Expected length of stay: greater than 2 midnights Legal Guardian: No Chief Complaint: R Hip Pain History of Present Illness: Angella Fernandez is a 53 y.o. male with a PMH of alcohol use, recent admission 10/23-10/29/23 for NSTEMI who presented to 12/04/2023 with R hip pain and impending alcohol withdrawal. Endorses drank a fifth of 52% alcohol by volume yesterday, about 12-15 shots of liquor day prior. Was recently in rehab at [facility] and did not drink for 2 weeks up until 48hours ago when hip pain started again. He relapsed with alcohol in September after being sober for 10 years per chart review. States was on an oral steroid while at [facility] and says did OK with it. Received a steroid injection to R hip 1.5 weeks ago. Endorses hip pain worse with movement, tender to touch muscles around the joint. Discussed plan of care with Dr. Urban ([facility] attending). ROS: 10 systems were reviewed and negative,except as noted above Past Medical, Surgical, Social, Family History: Past Medical History: Diagnosis Date Alcohol withdrawal seizures Bradycardia COVID-19 09/2021 Essential hypertension, benign Migraine Osteoarthritis 09/2023 Right hip Spondylosis, cervical Past Surgical History: Procedure Laterality Date ORCHIECTOMY LAPAROSCOPIC TONSILLECTOMY Social History Socioeconomic History Marital status: Spouse name: Not on file Number of children: Not on file Years of education: Not on file Highest education level: Not on file Occupational History Not on file Tobacco Use Smoking status: Every Day Current packs/day: 0.50 Types: Cigarettes Smokeless tobacco: Never Tobacco comments: quit 2014 Vaping Use Vaping status: Never Used Substance and Sexual Activity Alcohol use: Yes Alcohol/week: 3.0 standard drinks of alcohol Types: 3 Shots of liquor per week Comment: Hx of binge drinking/withdrawal/seizures Drug use: Not Currently Types: Marijuana Sexual activity: Not on file Other Topics Concern Not on file Social History Narrative Not on file Social Determinants of Health Financial Resource Strain: Not on file Food Insecurity: Not on file Transportation Needs: Not on file Physical Activity: Not on file Stress: Not on file Social Connections: Not on file Intimate Partner Violence: Not on file Housing Stability: Not on file Family History Problem Relation Age of Onset Other - Specify Mother pancreatitis Liver Disease Father No known problems Sister No known problems Brother No known problems Brother No known problems Son Current Medications: (Not in a hospital admission) Physical Exam: BP (!) 156/117 Pulse 109 Temp 97 F (36.1 C) (Temporal) Resp 19 Ht 1.803 m (5' 11 ) Wt 99.8 kg (220 lb) SpO2 92% BMI 30.68 kg/m Smoking Status Every Day General: appears stated age, in NAD Eyes: anicteric, EOMI ENT: neck supple, moist mucous membranes Cardiovascular: regular rate and rhythm, no peripheral edema Respiratory: clear to auscultation b/L; no wheezes/crackles Gastrointestinal: soft, non-distended Genitourinary: no suprapubic tenderness, no amaya in place Musculoskeletal: +hip pain limiting R leg ROM Skin: warm, dry Neuro: alert and oriented x3 with no focal deficits Psych: mood appropriate Labs, Imaging, and Studies reviewed: Recent Labs 12/04/23 0938 WBC 13.07* HGB 16.3 HCT 49.9 PLATELET 306 Recent Labs 12/04/23 0938 SODIUM 148* POTASSIUM 3.8 CHLORIDE 112* CO2 15.0* BUN 18 CREATSERUM 0.93 GFR 90 GLUCOSE 95 CALCIUM 10.1 ALBUMIN 5.0 PHOSPHORUS 4.0 MAGNESIUM 1.8 Recent Labs 12/04/23 0938 ALT 44 AST 51 ALKPHOS 113 BILITOTAL 2.9* No results for input(s): INR in the last 72 hours. Associated attestation - Nahun Urban MD - 12/04/2023 6:16 PM EST I personally saw the patient on 12/04/2023 and agree with (or revise) RAMOS Wood findings. I performed the substantive part of the medical decision making for this encounter. Angella Fernandez is a 53 y.o. male with a PMH of ETOH abuse who presented to for intractable right hip pain. He has been dealing with chronic right hip pain, reported steroid injection to hip by pain management about 1.5 weeks ago after which he did not note improvement, in fact, has noted progressive worsening of pain and has been drinking even more heavily especially the past 2 days to numb the pain. ED provider had discussed with Orthopedic surgery after patient's x-ray showed OA (cannot rule out osteonecrosis) who recommended toradol q6h and outpatient follow-up. His ED course was complicated by acute alcohol withdrawal with a CIWA of 12 for which he received IV ativan x 1 with improvement. Patient reports difficulty ambulating, frustrated with his pain. Additionally hypernatremic to 148. Start CVIA protocol, consider phenobarb addition depending on alcohol withdrawal. Multimodal pain control, but would avoid narcotics given ETOh abuse. Consider MRI hip, ortho consult depending on hospital course. [facility] [place] [employer] Work Phone: 12-04-2023 History and physical note [facility] / History and Physical Note 12/04/23 Angella Fernandez 1970 [id number] Assessment/Plan: Angella Fernandez is a 53 y.o. male with a PMH of alcohol use, recent admission 10/23-10/29/23 for NSTEMI who presented to 12/04/2023 with R hip pain and impending alcohol withdrawal. Alcohol Withdrawal: last drink 10/04/23. Recently went through alcohol withdrawal 2 weeks ago at [facility], was not on phenobarbital taper per patient. CIWA and vitamins continued. R Hip Pain: Ongoing since September. XR showed worsening degenerative arthritis, concern for osteonecrosis. Outpatient MRI recommended. ED discussed with Ortho, recommendation for Toradol 10mg every 6 hours and outpatient follow up. Multimodal pain control, PT. Avoiding narcotics due sedation risks with alcohol use. Hypernatremia: Admit Na 148, likely due to dehydration. Monitor oral intake. Tobacco Use: Current 0.5PPD smoker, NRT ordered. Obesity: Body mass index is 30.68 kg/m . Code Status: Full confirmed with patient. VTE Prophylaxis: heparin subcutaneous Current living situation: home Expected disposition: same Expected length of stay: greater than 2 midnights Legal Guardian: No Chief Complaint: R Hip Pain History of Present Illness: Angella Fernandez is a 53 y.o. male with a PMH of alcohol use, recent admission 10/23-10/29/23 for NSTEMI who presented to 12/04/2023 with R hip pain and impending alcohol withdrawal. Endorses drank a fifth of 52% alcohol by volume yesterday, about 12-15 shots of liquor day prior. Was recently in rehab at [facility] and did not drink for 2 weeks up until 48hours ago when hip pain started again. He relapsed with alcohol in September after being sober for 10 years per chart review. States was on an oral steroid while at [facility] and says did OK with it. Received a steroid injection to R hip 1.5 weeks ago. Endorses hip pain worse with movement, tender to touch muscles around the joint. Discussed plan of care with Dr. Urban ([facility] attending). ROS: 10 systems were reviewed and negative,except as noted above Past Medical, Surgical, Social, Family History: Past Medical History: Diagnosis Date Alcohol withdrawal seizures Bradycardia COVID-19 09/2021 Essential hypertension, benign Migraine Osteoarthritis 09/2023 Right hip Spondylosis, cervical Past Surgical History: Procedure Laterality Date ORCHIECTOMY LAPAROSCOPIC TONSILLECTOMY Social History Socioeconomic History Marital status: Spouse name: Not on file Number of children: Not on file Years of education: Not on file Highest education level: Not on file Occupational History Not on file Tobacco Use Smoking status: Every Day Current packs/day: 0.50 Types: Cigarettes Smokeless tobacco: Never Tobacco comments: quit 2013 Vaping Use Vaping status: Never Used Substance and Sexual Activity Alcohol use: Yes Alcohol/week: 3.0 standard drinks of alcohol Types: 3 Shots of liquor per week Comment: Hx of binge drinking/withdrawal/seizures Drug use: Not Currently Types: Marijuana Sexual activity: Not on file Other Topics Concern Not on file Social History Narrative Not on file Social Determinants of Health Financial Resource Strain: Not on file Food Insecurity: Not on file Transportation Needs: Not on file Physical Activity: Not on file Stress: Not on file Social Connections: Not on file Intimate Partner Violence: Not on file Housing Stability: Not on file Family History Problem Relation Age of Onset Other - Specify Mother pancreatitis Liver Disease Father No known problems Sister No known problems Brother No known problems Brother No known problems Son Current Medications: (Not in a hospital admission) Physical Exam: BP (!) 156/117 Pulse 109 Temp 97 F (36.1 C) (Temporal) Resp 19 Ht 1.803 m (5' 11 ) Wt 99.8 kg (220 lb) SpO2 92% BMI 30.68 kg/m Smoking Status Every Day General: appears stated age, in NAD Eyes: anicteric, EOMI ENT: neck supple, moist mucous membranes Cardiovascular: regular rate and rhythm, no peripheral edema Respiratory: clear to auscultation b/L; no wheezes/crackles Gastrointestinal: soft, non-distended Genitourinary: no suprapubic tenderness, no amaya in place Musculoskeletal: +hip pain limiting R leg ROM Skin: warm, dry Neuro: alert and oriented x3 with no focal deficits Psych: mood appropriate Labs, Imaging, and Studies reviewed: Recent Labs 12/04/23 0938 WBC 13.07* HGB 16.3 HCT 49.9 PLATELET 306 Recent Labs 12/04/23 0938 SODIUM 148* POTASSIUM 3.8 CHLORIDE 112* CO2 15.0* BUN 18 CREATSERUM 0.93 GFR 90 GLUCOSE 95 CALCIUM 10.1 ALBUMIN 5.0 PHOSPHORUS 4.0 MAGNESIUM 1.8 Recent Labs 12/04/23 0938 ALT 44 AST 51 ALKPHOS 113 BILITOTAL 2.9* No results for input(s): INR in the last 72 hours. Associated attestation - Nahun Urban MD - 12/04/2023 6:16 PM EST I personally saw the patient on 12/04/2023 and agree with (or revise) RAMOS Wood findings. I performed the substantive part of the medical decision making for this encounter. Angella Fernandez is a 53 y.o. male with a PMH of ETOH abuse who presented to for intractable right hip pain. He has been dealing with chronic right hip pain, reported steroid injection to hip by pain management about 1.5 weeks ago after which he did not note improvement, in fact, has noted progressive worsening of pain and has been drinking even more heavily especially the past 2 days to numb the pain. ED provider had discussed with Orthopedic surgery after patient's x-ray showed OA (cannot rule out osteonecrosis) who recommended toradol q6h and outpatient follow-up. His ED course was complicated by acute alcohol withdrawal with a CIWA of 12 for which he received IV ativan x 1 with improvement. Patient reports difficulty ambulating, frustrated with his pain. Additionally hypernatremic to 148. Start CVIA protocol, consider phenobarb addition depending on alcohol withdrawal. Multimodal pain control, but would avoid narcotics given ETOh abuse. Consider MRI hip, ortho consult depending on hospital course. documented in this encounter [facility] [place] [employer] Work Phone: 12-04-2023 History and physical note [facility] / History and Physical Note 12/04/23 Angella Fernandez 1970 [id number] Assessment/Plan: Angella Fernandez is a 53 y.o. male with a PMH of alcohol use, recent admission 10/23-10/29/23 for NSTEMI who presented to 12/04/2023 with R hip pain and impending alcohol withdrawal. Alcohol Withdrawal: last drink 10/04/23. Recently went through alcohol withdrawal 2 weeks ago at [facility], was not on phenobarbital taper per patient. CIWA and vitamins continued. R Hip Pain: Ongoing since September. XR showed worsening degenerative arthritis, concern for osteonecrosis. Outpatient MRI recommended. ED discussed with Ortho, recommendation for Toradol 10mg every 6 hours and outpatient follow up. Multimodal pain control, PT. Avoiding narcotics due sedation risks with alcohol use. Hypernatremia: Admit Na 148, likely due to dehydration. Monitor oral intake. Tobacco Use: Current 0.5PPD smoker, NRT ordered. Obesity: Body mass index is 30.68 kg/m . Code Status: Full confirmed with patient. VTE Prophylaxis: heparin subcutaneous Current living situation: home Expected disposition: same Expected length of stay: greater than 2 midnights Legal Guardian: No Chief Complaint: R Hip Pain History of Present Illness: Angella Fernandez is a 53 y.o. male with a PMH of alcohol use, recent admission 10/23-10/29/23 for NSTEMI who presented to 12/04/2023 with R hip pain and impending alcohol withdrawal. Endorses drank a fifth of 52% alcohol by volume yesterday, about 12-15 shots of liquor day prior. Was recently in rehab at [facility] and did not drink for 2 weeks up until 48hours ago when hip pain started again. He relapsed with alcohol in September after being sober for 10 years per chart review. States was on an oral steroid while at [facility] and says did OK with it. Received a steroid injection to R hip 1.5 weeks ago. Endorses hip pain worse with movement, tender to touch muscles around the joint. Discussed plan of care with Dr. Urban ([facility] attending). ROS: 10 systems were reviewed and negative,except as noted above Past Medical, Surgical, Social, Family History: Past Medical History: Diagnosis Date Alcohol withdrawal seizures Bradycardia COVID-19 09/2021 Essential hypertension, benign Migraine Osteoarthritis 09/2023 Right hip Spondylosis, cervical Past Surgical History: Procedure Laterality Date ORCHIECTOMY LAPAROSCOPIC TONSILLECTOMY Social History Socioeconomic History Marital status: Spouse name: Not on file Number of children: Not on file Years of education: Not on file Highest education level: Not on file Occupational History Not on file Tobacco Use Smoking status: Every Day Current packs/day: 0.50 Types: Cigarettes Smokeless tobacco: Never Tobacco comments: quit 2013 Vaping Use Vaping status: Never Used Substance and Sexual Activity Alcohol use: Yes Alcohol/week: 3.0 standard drinks of alcohol Types: 3 Shots of liquor per week Comment: Hx of binge drinking/withdrawal/seizures Drug use: Not Currently Types: Marijuana Sexual activity: Not on file Other Topics Concern Not on file Social History Narrative Not on file Social Determinants of Health Financial Resource Strain: Not on file Food Insecurity: Not on file Transportation Needs: Not on file Physical Activity: Not on file Stress: Not on file Social Connections: Not on file Intimate Partner Violence: Not on file Housing Stability: Not on file Family History Problem Relation Age of Onset Other - Specify Mother pancreatitis Liver Disease Father No known problems Sister No known problems Brother No known problems Brother No known problems Son Current Medications: (Not in a hospital admission) Physical Exam: BP (!) 156/117 Pulse 109 Temp 97 F (36.1 C) (Temporal) Resp 19 Ht 1.803 m (5' 11 ) Wt 99.8 kg (220 lb) SpO2 92% BMI 30.68 kg/m Smoking Status Every Day General: appears stated age, in NAD Eyes: anicteric, EOMI ENT: neck supple, moist mucous membranes Cardiovascular: regular rate and rhythm, no peripheral edema Respiratory: clear to auscultation b/L; no wheezes/crackles Gastrointestinal: soft, non-distended Genitourinary: no suprapubic tenderness, no amaya in place Musculoskeletal: +hip pain limiting R leg ROM Skin: warm, dry Neuro: alert and oriented x3 with no focal deficits Psych: mood appropriate Labs, Imaging, and Studies reviewed: Recent Labs 12/04/23 0938 WBC 13.07* HGB 16.3 HCT 49.9 PLATELET 306 Recent Labs 12/04/23 0938 SODIUM 148* POTASSIUM 3.8 CHLORIDE 112* CO2 15.0* BUN 18 CREATSERUM 0.93 GFR 90 GLUCOSE 95 CALCIUM 10.1 ALBUMIN 5.0 PHOSPHORUS 4.0 MAGNESIUM 1.8 Recent Labs 12/04/23 0938 ALT 44 AST 51 ALKPHOS 113 BILITOTAL 2.9* No results for input(s): INR in the last 72 hours. Associated attestation - Nahun Urban MD - 12/04/2023 6:16 PM EST I personally saw the patient on 12/04/2023 and agree with (or revise) RAMOS Wood findings. I performed the substantive part of the medical decision making for this encounter. Angella Fernandez is a 53 y.o. male with a PMH of ETOH abuse who presented to for intractable right hip pain. He has been dealing with chronic right hip pain, reported steroid injection to hip by pain management about 1.5 weeks ago after which he did not note improvement, in fact, has noted progressive worsening of pain and has been drinking even more heavily especially the past 2 days to numb the pain. ED provider had discussed with Orthopedic surgery after patient's x-ray showed OA (cannot rule out osteonecrosis) who recommended toradol q6h and outpatient follow-up. His ED course was complicated by acute alcohol withdrawal with a CIWA of 12 for which he received IV ativan x 1 with improvement. Patient reports difficulty ambulating, frustrated with his pain. Additionally hypernatremic to 148. Start CVIA protocol, consider phenobarb addition depending on alcohol withdrawal. Multimodal pain control, but would avoid narcotics given ETOh abuse. Consider MRI hip, ortho consult depending on hospital course. documented in this encounter [employer] Phone: 12-04-2023 Physician Emergency department Note ED ATTENDING NOTE Chief Complaint: Hip Pain and Sweats HPI: Angella Fernandez is a 53 y.o. male who presents with right hip pain. Reports that has been having right hip pain, had an injection 1.5 weeks ago and follows with pain clinic. Pain clniic did not prescribe opiates so patient has been drinkign whiskey to manage pain. Patient reports that he has been in such significant pain that he has been drinking whiskey daily. He only reports 2 days of consistent drinking more than a bottle a day. He does report a history of alcohol withdrawal but usually includes only shakes but denies hallucinations. He is never required admission for DTs or seizures. The patient is very focused on his hip pain. However when I discussed pain management at home he denies taking Tylenol Motrin. He reports that he was prescribed an anti-inflammatory but he has not taken this in the last couple of days. Review of Systems: ALL OTHER SYSTEMS REVIEWED AND NEGATIVE Past Medical History: Diagnosis Date Alcohol withdrawal seizures Bradycardia COVID-19 09/2021 Essential hypertension, benign Migraine Osteoarthritis 09/2023 Right hip Spondylosis, cervical Past Surgical History: Procedure Laterality Date ORCHIECTOMY LAPAROSCOPIC TONSILLECTOMY Family History Problem Relation Age of Onset Other - Specify Mother pancreatitis Liver Disease Father No known problems Sister No known problems Brother No known problems Brother No known problems Son Social History Tobacco Use Smoking status: Every Day Current packs/day: 0.50 Types: Cigarettes Smokeless tobacco: Never Tobacco comments: quit 2013 Vaping Use Vaping status: Never Used Substance Use Topics Alcohol use: Yes Alcohol/week: 3.0 standard drinks of alcohol Types: 3 Shots of liquor per week Comment: Hx of binge drinking/withdrawal/seizures Drug use: Not Currently Types: Marijuana PHYSICAL EXAM VITAL SIGNS: were reviewed. BP (!) 169/129 Pulse 118 Temp 98.6 F (37 C) (Temporal) Resp 16 Ht 1.803 m (5' 11 ) Wt 99.8 kg (220 lb) SpO2 96% BMI 30.68 kg/m Smoking Status Every Day General: Awake, alert. In no acute distress HEENT: nontraumatic, EOMI, non-icteric, no congestion, airway open Respiratory: Normal lung exam Cardiovascular: Normal heart exam, no edema GI: Soft, nontender Musculoskeletal: back nontender Skin: warm, dry, no rash Neuro: Oriented x3. Antalgic gait, intact strength and sensation to bilat UE and LE Psych: Appropriate, cooperative, normal affect Plan/Imaging Results: No orders of the defined types were placed in this encounter. No orders to display MDM Data My EKG Interpretation Interpreted by me Rhythm: sinus Rate: [address] [place]: normal Ectopy: PVCs Conduction: normal ST Segments: no acute change T Waves: no acute change Q Waves: none Clinical Impression: no STEMI Medical Decision Making Patient was evaluated and appears generally well on exam in no acute distress. Differential includes acute illnesses including electrolyte abnormality, alcohol intoxication, alcohol withdrawal, degenerative hip disease, osteoarthritis of the hip, bursitis, fracture, contusion. The patient reports that he used to have good control of his hip pain with oral steroids but he does not know the dose that he used to be on. He has not tried any oral pain medications at home except for alcohol use. I spent several minutes discussing with the patient that alcohol use would not help his symptoms snf, he did report that when he drinks alcohol it takes edges often the pain but he does not have significant relief of his pain. When I attempted to discuss a pain management including anti-inflammatories with scheduled Tylenol the patient is not redirectable and focuses on managing his pain immediately now. He is tearful. The patient also significantly tachycardic this could be related to his pain or could also be related to potential alcohol withdrawal. For these reasons we got basic labs. The patient also was focused on his pain management and asking for more significant pain management and started reporting low chest pain. We expanded the workup including EKG that was normal. Trop and BNP negative. X-ray showed continued arthritis, however radiology also concerned for potential osteo and necrosis. Nonemergent outpatient MRI was also recommended. For potential progressive associated disease I did discuss the patient with Orthopedics whom recommended toradol 10mg q6hr and outpatient followup. While patient here had tele strip potential concern for Vfhowever patient conscious entire time. Did report sob and dizziness. Reviewed with Dr. Norwood whom reviewed and states was artifact can see ECG go through. We will keep on telemetry and repeat troponin. Repeat troponin negative. Patient while here began to score higher on CIWA for agitation and anxiety. Started him on ativan. I discussed obs/admission for alcohol withdrawal. Patient ok with this plan. After initial dose of ativan patient able to rest comfortable and nap. Oxygen decreased to 90%, he reoprts this always happens when he sleeps. He is supposed to have a formal sleep study done. Amount and/or Complexity of Data Reviewed External Data Reviewed: labs, radiology and notes. Labs: ordered. Radiology: ordered and independent interpretation performed. ECG/medicine tests: ordered and independent interpretation performed. Risk OTC drugs. Prescription drug management. This note was dictated using medical voice recognition software. Attempts at proofreading were made, but errors may occasionally still occur. Jeanie Churchill MD, PhD 12/04/23 1448 [employer] Phone: 12-04-2023 Emergency department Note Pt presents to the ED with c/o increased pain with his R hip, pt states. He is a pt of the pain clinic and had an injection 1.5 weeks ago. Pt admits to drinking lots and lots of whiskey to help with my pain. Last drink yesterday [employer] Phone: 10-24-2023 History of Presen t illness Narrative 2100- Pt. Educated on s/s withdraw, hypoxia, pain control. Pt. Had no further questions. IV removed. Pt. Transported via wheelchair to exit. Pt. Spouse providing transportation. Pt oxygen saturation at rest on room air is: 95% Pt oxygen saturation with exertion on room air is: 91-93% Pt does not qualify for home oxygen 10/24/23 1629 Referral Information Arrived From home or self-care Final Discharge Planning Discharge Disposition Home CM/SW AVS Portion Completed Yes Plan Plan Home with OP FU Transport Request Mode of Transfer Private Vehicle Pt still on 2L NC 10/24 at 16:30. Encouraged to have pt stay for weaning and/+ or new 02 set up. Monik Gray BA, RN Rounding Nurse/Hall Tender [facility] Acute Care Physical Therapy Evaluation AM-PAC score(s): PRIOR LEVEL AM-PAC Mobility Raw Score: 24 CURRENT AM-PAC Mobility Raw Score: 24 Discharge Destination Recommendation: Home with Outpatient Rehab Services Barriers to discharge home: None Anticipated Equipment Needs at Discharge (PT Eval): none Current therapy frequency recommendation in acute: Therapy Frequency: 3 times a week Assessment Patient admitted for: NSTEMI; Acute EtOH Intoxication with Dependency Reason for referral: deconditioning Assessment: Pt reporting he does not use an AD at baseline and is very independent. Pt demonstrates continued independence during PT assessment, however reports continued R hip pain. Pt reports hip pain is worse when standing up and with initial steps for ambulation, however feels better with more movement. Recommend OP PT for R hip pain. General Information Patient Safety Communication Prior to Visit: Nursing Oxygen Therapy O2 Sat (%): 95 % O2 Device: nasal cannula Flow (L/min): 2 Home Setting Residence: House Lives With: spouse ( now) Mobility Equipment Available: none used Previous Level of Function Prior level ADL Overview: Independent with all ADLs Bed Mobility/Transfers: independent Ambulation Skills: independent Assistive Device: none used Level of Ambulation: community Cognition Overall Cognitive Status: Within Functional Limits RLE Assessment RLE Assessment: Within Functional Limits LLE Assessment LLE Assessment: Within Functional Limits Sitting Balance Static Sitting-Level of Assistance: Independent Dynamic Sitting-Level of Assistance: Independent Standing Balance Static Standing-Level of Assistance: Independent Dynamic Standing-Level of Assistance: Independent Supine to Sit Mobility [place] Level: Supine->Sit: independent Sit to Supine Mobility [place] Level: Sit->Supine: independent Sit to Stand Transfer [place] Level: Sit->Stand: independent Skilled Intervention/Details: Sit->Stand: pt reported hip pain during transfer Stand to Sit Transfer [place] Level: Stand->Sit: independent Gait Assessment [place] Level: Gait: independent Ambulation Distance (Feet): 30 Gait Deviations Identified: antalgic Skilled Intervention/Details - Gait: increased pain with initial steps, then decreasing with continued ambulation Plan Plan for next session: ATIYA van Plan of Care Interventions Planned Therapy Interventions: gait training, strengthening, ROM, stretching Physical Therapy Goals: to be met during this hospitalization Patient will ambulate 100 feet with no AD independently Patient will complete 3 stairs independently in order to enter home safely. Patient will be independent with home exercise program for R hip strength Co-evaluation/co-treatment performed?: No simultaneous skilled care performed Criteria for Skilled Therapeutic Interventions Met (PT Eval): yes, treatment indicated Impairments Found (PT Eval): Strength, Pain, Gait/Locomotion Global Functional Limitations: Decreased ambulation distance/endurance, Ambulation/locomotion pain Rehab Potential (PT Eval): excellent Eval Complexity Assessment History Components: Moderate (1-2 personal factors and/or comorbidities) Examination of Body System(s) Components: Low (Addressing 1-2 elements) Clinical Presentation: Stable - unchanging or predictable (Low) Clinical Decision Making (complexity): Low Total Visit Time: 16 minutes PT Evaluation and Treatment Time PT Evaluation (Low) Time Entry: 16 Meme Muniz PT --Upon discontinuation of Acute Care Physical Therapy Services, or patient discharge from the hospital, this note represents the current Physical Therapy Discharge Summary. [facility] Medicine / Inpatient Progress Note 10/24/23 Angella Fernandez 1970 [id number] Assessment/Plan: Angella Fernandez is a 53 y.o. male with a PMH of HTN, EtOH abuse who presented to 10/23/2023 with R chest wall pain and R hip pain. Admit work up significant for acute EtOH intoxication, elevated troponin and d dimer. NSTEMI: Suspect demand ischemia in setting of intoxication. R sided reproducible chest pain on admit. Admit EKG NSR with nonspecific TWI/t wave flattening, Troponin I 0.085, 0.097 and 0.09. d dimer 6.63. Admit CT PA without e/o PE, bilateral bronchial wall thickening, minimal mucous plugging in the lower lobe airways. Monitor on telemetry Acute EtOH Intoxication with Dependency: Endorsed 10 years of sobriety with recent relapse 4 days prior to admission. Admit EtOH 282, states drank a bottle of liquor overnight. Abbreviated Ativan taper. CIWA and vitamin supplementation Nausea, Vomiting: suspect secondary to EtOH intoxication. Benign abd exam on admit. Lipase WNL. Supportive care. R Hip Pain: XR R hip non-acute. HUY Tylenol, lidocaine patch. Supportive care, PT eval. HTN: Continued home CCB. Incidental Findings: CT PA on admit with small to moderate sliding HH, 3mm RML pulmonary nodule. Asymptomatic. OP follow up with PCP recommended. Code Status: FULL, confirmed on admission. VTE Prophylaxis: Lovenox SQ Current living situation: home Expected disposition: home Expected length of stay: less than 2 midnights Legal Guardian: No Subjective: Pt seen and examined at bedside. Chart reviewed including imaging, labs and consultation notes. Discussed with [facility] and pharm - decreased PRN ativan usage. However variable vitals and alertness. Pt reports gen malaise and primary complaint remains R hip. Denies fall/trauma. Agreeable to plan above Physical Exam: BP (!) 170/105 (BP Location: Right arm, BP Position: Lying) Pulse 94 Temp 98.9 F (37.2 C) (Temporal) Resp 19 Ht 1.803 m (5' 11 ) Wt 103 kg (227 lb 1.2 oz) SpO2 95% BMI 31.67 kg/m Smoking Status Every Day General: appears stated age, in NAD Eyes: anicteric, EOMI ENT: neck supple, moist mucous membranes Cardiovascular: Rapid regular rate and rhythm, no peripheral edema Respiratory: clear to auscultation b/L; no wheezes/crackles Gastrointestinal: soft, non-distended Genitourinary: no suprapubic tenderness, no amaya in place Musculoskeletal: no joint edema, no bony deformities Skin: warm, dry Neuro: alert and oriented x3 with no focal deficits Psych: mood appropriate Current Medications: Acetaminophen 975 mg Oral Q6H amLODIPine 10 mg Oral Daily Atorvastatin 40 mg Oral Daily Folic acid 1 mg Oral Daily lidocaine 2 patch Transdermal Q24H LORazepam 1-4 mg Intravenous See admin instructions Or LORazepam 1-4 mg Oral See admin instructions LORazepam 1 mg Oral Q8H Followed by [START ON 10/25/2023] LORazepam 1 mg Oral Q8H Thera-M 1 tablet Oral Daily thiamine (B-1) 100 mg in Sodium chloride 0.9% 51 mL (total volume) IVPB 100 mg Intravenous Daily thiamine mononitrate 100 mg Oral Daily Labs, Imaging, and Studies reviewed: Recent Labs 10/23/23 1015 10/24/23 0527 WBC 10.03 6.78 HGB 14.3 13.5 HCT 40.4 39.0 PLATELET 219 152 Recent Labs 10/23/23 1125 10/24/23 0527 SODIUM 139 138 POTASSIUM 3.5 3.9 CHLORIDE 106 105 CO2 14.0* 26.0 BUN 14 14 CREATSERUM 0.79* 0.77* GFR 108 111 GLUCOSE 120* 88 CALCIUM 8.5 9.4 ALBUMIN 4.3 -- Recent Labs 10/23/23 1125 ALT 42 AST 67* ALKPHOS 82 BILITOTAL 2.7* No results for input(s): INR in the last 72 hours. 10/24/2023 Nutrition Care Monitor Evaluation of Nutritional Risk Patient's Nutritional Risk Status (assessed to be): Nutrition Care Level 1 (0-7 points) Low Nutritional Risk Plan of Care: Provide basic nutrition care. Re-evaluate in 7 days. (NCL-1) Sheree Abbasi RD, LD [phone] Nutrition Care Monitor Point Value Diet Order: DIET REGULAR 0 Diagnosis: Alcohol intoxication in active alcoholic 3 Past Medical Hx: Past Medical History: Diagnosis Date Alcohol withdrawal seizures Bradycardia COVID-19 09/2021 Essential hypertension, benign Migraine Spondylosis, cervical Current Medications: Acetaminophen 975 mg Oral Q6H amLODIPine 10 mg Oral Daily Atorvastatin 40 mg Oral Daily Folic acid 1 mg Oral Daily lidocaine 2 patch Transdermal Q24H LORazepam 1-4 mg Intravenous See admin instructions Or LORazepam 1-4 mg Oral See admin instructions LORazepam 1 mg Oral Q8H Followed by [START ON 10/25/2023] LORazepam 1 mg Oral Q8H Thera-M 1 tablet Oral Daily thiamine (B-1) 100 mg in Sodium chloride 0.9% 51 mL (total volume) IVPB 100 mg Intravenous Daily thiamine mononitrate 100 mg Oral Daily Labs: D-dimer 6.63, Sed rate 12, CRP 3.3 Lab Results Component Value Date SODIUM 138 10/24/2023 POTASSIUM 3.9 10/24/2023 GLUCOSE 88 10/24/2023 CHLORIDE 105 10/24/2023 CO2 26.0 10/24/2023 BUN 14 10/24/2023 CREATSERUM 0.77 (L) 10/24/2023 Lab Results Component Value Date WBC 6.78 10/24/2023 HGB 13.5 10/24/2023 HCT 39.0 10/24/2023 PLATELET 152 10/24/2023 MCV 91.5 10/24/2023 Lab Results Component Value Date ALBUMIN 4.3 10/23/2023 (>3.4 = 0 pts) (2.8-3.4 = 1pt) (2.1-2.7 = 5 pts) (<2.1 = 7 pts) 0 No results found for: PREALBUMIN (>16 = 0 pts) (14-16 = 1pt) (11-13 = 5 pts) (<11 = 7 pts) NA Anthropometrics: Ht Readings from Last 1 Encounters: 10/23/23 1.803 m (5' 11 ) Wt Readings from Last 10 Encounters: 10/23/23 103 kg (227 lb 1.2 oz) 08/29/23 103.5 kg (228 lb 4 oz) 02/18/23 95.3 kg (210 lb) 01/31/23 93.7 kg (206 lb 8 oz) 10/02/22 97.1 kg (214 lb) 10/25/21 110.7 kg (244 lb 2 oz) 03/07/21 100.9 kg (222 lb 8 oz) 04/17/16 95.5 kg (210 lb 9.6 oz) Body mass index is 31.67 kg/m . IBW: 155-189# %IBW: 120% Current/IBW (76-90% = 3 pts) (60-75% = 5 pts) (Below 60% = 7 pts) 0 UBW: 227# %UBW: 100% Current/UBW (85-95% = 1 pt) (75-84% = 5 pts) (Below 75% = 7 pts) 0 Weight Change: stable (> 2% in 1 week=1 pt) (5-10% in 1-6 months = 3 pts) (>5-10% in 1-6 months = 5 pts) 0 Appetite loss for more than 5 days (1 pt): No (2 days only) 0 Daily diarrhea/vomiting for more than 3 days (1 pt): No (vomiting yesterday) 0 Chewing/swallowing problems that prevent adequate po intake (1 pt): No 0 Average po intake (<50% = 4 pts): N/A NA Total Points: REJI Marie Script Editor 3 pts 10/24/23 1037 Referral Information Arrived From home or self-care Readmission Information Was patient readmitted within 30 Days? No Information Source Information Source patient Outpatient Providers Outpatient Providers Updated In IHIS Yes Contact Information Hall Tender/SW Added to Care Team Yes This Department Store Salesperson is Primary Hall Tender/SW Yes Hall Tender Name Monik Reynoso Gray Hall Tender's Living Environment Lives With spouse () Living Arrangements house Provides Primary Care For no one Primary Care Provided By self Support System (estrangement issues) Able to Return to Prior Arrangements other (see comments) (Patient is unsure if will allow him home) Functional Status Patient's Functional Status Prior To This Admission? Independent Are There Status Changes This Admission? Yes Changes Observed Since Admission? Physical Concerns With Patient Being Able To Care For Themselves At Discharge? Yes Who Is Patient's Primary Contact For Discharge Planning, Education And Care For Discharge? Viky Fernandez as listed in demographics Can Support Person Meet The Care Needs Of The Patient? (estranged) Employment/Financial Employed? No Employment Details as of 3-4 days ago Employment/Financial Concerns yes Employment/Financial Comments Work excuse offered. pt declined at this time. says he may have lost his job 3-4 days ago Source Of Income unable to assess Financial Concerns no transportation;other (see comments) (may not have home to go to at discharge) Insurance Medical Insurance Verified Yes Prescription Coverage Yes Pharmacy updated in IHIS Yes Initial Discharge Planning Home Care Services (BUSINESS PERFORMANCE MANAGER) No Home Therapies (BUSINESS PERFORMANCE MANAGER) None DME (BUSINESS PERFORMANCE MANAGER) None Patient Goal for Discharge Get better Anticipated discharge disposition (unsure at this time) Current Discharge Risk substance use/abuse Transportation Available (UBER waiver discussed) Assessment/Concerns to be Addressed Concerns To Be Addressed substance/tobacco abuse/use concerns Concerns Comments Discussed going back to AA. He has MH resource guide at the bedside. WAs able to recite all AA meetings and times in [place] to me Received consult from medical team regarding patient screening positive for Social Determinants of Health assessment. Met with patient at bedside. Discussed needs regarding MEMSDOHDomains: Housing Instability Reviewed Social Determinants of Health Resource Handout [id number]. beater engineer helper/SW met with patient in the patient's room for initial assessment. Introduced self &explained role of CMRN/SW in multidisciplinary team explained. Patient admitted from home with ETOH abuse/hip pain. Past Medical History includes: Past Medical History: Diagnosis Date Alcohol withdrawal seizures Bradycardia COVID-19 09/2021 Essential hypertension, benign Migraine Spondylosis, cervical Past Surgical History: Procedure Laterality Date ORCHIECTOMY LAPAROSCOPIC TONSILLECTOMY Social History Socioeconomic History Marital status: Spouse name: Not on file Number of children: Not on file Years of education: Not on file Highest education level: Not on file Occupational History Not on file Tobacco Use Smoking status: Every Day Packs/day: .5 Types: Cigarettes Smokeless tobacco: Never Tobacco comments: quit 2013 Vaping Use Vaping Use: Never used Substance and Sexual Activity Alcohol use: Yes Alcohol/week: 3.0 standard drinks of alcohol Types: 3 Shots of liquor per week Comment: Hx of binge drinking/withdrawal/seizures Drug use: Not Currently Types: Marijuana Sexual activity: Not on file Other Topics Concern Not on file Social History Narrative Not on file Social Determinants of Health Financial Resource Strain: Not on file Food Insecurity: Not on file Transportation Needs: Not on file Physical Activity: Not on file Stress: Not on file Social Connections: Not on file Intimate Partner Violence: Not on file Housing Stability: Not on file Patient was alert, oriented x4 and agreeable to CM/SW visit. Verified demographics, insurance, preferred physicians, & pharmacy and updated demographics and care team. Living Environment/Support: Patient lives at home? with estranged . There are steps to enter the home. Bedroom and bathroom are located on the 1st floor. Their care giving responsibilities at home include Self Patient is Independent with ADLs and reports Self is primary source of support at home. 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 Home Health/DME/O2/dialysis/Medical supplies/Community Resources: (company, liter flow, frequency) Health Insurance/RX/Financial Needs: Patient's insurance coverage is provided through [employer] and preferred pharmacy is listed. Anticoagulation/ Specialty Medications: (chemo, injectables, expensive/ hard to get medications) Medication: Prescribed by: Emotional/Psychological/Substanc e Abuse Treatment History: Yes, familiar with all local AA meetings. MH and SDH paperwork provided Values/Beliefs: Patient does not have cultural or congregation beliefs that may impact discharge planning and/or medical care. Patient Coping/Stress Concerns: Yes. Numerous. See above Advance directives/LNOK No- patient declines information, educated on LNOK HCPOA Primary: Secondary: Tertiary: LNOK: Spouse: Adult Children: Parents: Adult Siblings: Nearest adult related by blood or adoption: Reviewed and updated demographics. Transportation: Transportation around community provided by self Transportation at discharge to be provided by TBD. Reports he has children in [place]. Declined to name Other Considerations: (housing/food/financial insecurity, legal issues, etc) Housing. SD of Health cheat sheet provided Preferred Lab Draw Location: * Case Management/SW Plan/ Interventions Needed: MH resources at bedside SD of health cheat sheet at bedside Christopher gregg discussed CMRN/SW contact information provided to patient and will continue to follow hospital course for care coordination & discharge planning needs. Case Management assessed patient and determined to be high risk for readmission. Case Management will assist in discharge planning. Notes to follow. Monik Gray BA, RN Rounding Nurse/Hall Tender [facility] Pt discussed in medical discharge rounds. No family at bedside for discussion. Pt states he feels sore and tired but unsure if he fell. Plan to wean oxygen. PT/OT consulted. Mental health resources given to pt. Per pt, he was in AA for over 10 years and just fell off the bandwan. Discharge planning Expected discharge date: this weekend pending withdrawal Discharge destination: home Follow-ups needed: PCP New referral/orders signed Labs: NA New DME: TBD New orders: New medications: Ativan to complete taper Meds to Beds: NA Drains/lines that will need managed at home: NA Transportation home: per Celina Prater MS, RN, Hall Tender For assistance on evenings (after 4:30pm) please call the hospital shell freezing machine operator at and have the Hall Tender paediatric surgeon paged. On weekends from 6am to 4pm please contact the Rounding Nurse at Summary: Nutrition care monitor 10/24/2023 Nutrition Care Monitor Point Value Diet Order: DIET REGULAR 0 Diagnosis: Alcohol intoxication in active alcoholic 3 Past Medical Hx: Past Medical History: Diagnosis Date Alcohol withdrawal seizures Bradycardia COVID-19 09/2021 Essential hypertension, benign Migraine Spondylosis, cervical Current Medications: Acetaminophen 975 mg Oral Q6H amLODIPine 10 mg Oral Daily Atorvastatin 40 mg Oral Daily Folic acid 1 mg Oral Daily lidocaine 2 patch Transdermal Q24H LORazepam 1-4 mg Intravenous See admin instructions Or LORazepam 1-4 mg Oral See admin instructions LORazepam 1 mg Oral Q4H Followed by LORazepam 1 mg Oral Q6H Followed by [START ON 10/25/2023] LORazepam 1 mg Oral Q8H Thera-M 1 tablet Oral Daily thiamine (B-1) 100 mg in Sodium chloride 0.9% 51 mL (total volume) IVPB 100 mg Intravenous Daily thiamine mononitrate 100 mg Oral Daily Labs: D-dimer 6.63, Sed rate 12, CRP 3.3 Lab Results Component Value Date SODIUM 138 10/24/2023 POTASSIUM 3.9 10/24/2023 GLUCOSE 88 10/24/2023 CHLORIDE 105 10/24/2023 CO2 26.0 10/24/2023 BUN 14 10/24/2023 CREATSERUM 0.77 (L) 10/24/2023 Lab Results Component Value Date WBC 6.78 10/24/2023 HGB 13.5 10/24/2023 HCT 39.0 10/24/2023 PLATELET 152 10/24/2023 MCV 91.5 10/24/2023 Lab Results Component Value Date ALBUMIN 4.3 10/23/2023 (>3.4 = 0 pts) (2.8-3.4 = 1pt) (2.1-2.7 = 5 pts) (<2.1 = 7 pts) 0 No results found for: PREALBUMIN (>16 = 0 pts) (14-16 = 1pt) (11-13 = 5 pts) (<11 = 7 pts) NA Anthropometrics: Ht Readings from Last 1 Encounters: 10/23/23 1.803 m (5' 11 ) Wt Readings from Last 10 Encounters: 10/23/23 103 kg (227 lb 1.2 oz) 08/29/23 103.5 kg (228 lb 4 oz) 02/18/23 95.3 kg (210 lb) 01/31/23 93.7 kg (206 lb 8 oz) 10/02/22 97.1 kg (214 lb) 10/25/21 110.7 kg (244 lb 2 oz) 03/07/21 100.9 kg (222 lb 8 oz) 04/17/16 95.5 kg (210 lb 9.6 oz) Body mass index is 31.67 kg/m . IBW: 155-189# %IBW: 120% Current/IBW (76-90% = 3 pts) (60-75% = 5 pts) (Below 60% = 7 pts) 0 UBW: 227# %UBW: 100% Current/UBW (85-95% = 1 pt) (75-84% = 5 pts) (Below 75% = 7 pts) 0 Weight Change: stable (> 2% in 1 week=1 pt) (5-10% in 1-6 months = 3 pts) (>5-10% in 1-6 months = 5 pts) 0 Appetite loss for more than 5 days (1 pt): No (2 days only) 0 Daily diarrhea/vomiting for more than 3 days (1 pt): No (vomiting yesterday) 0 Chewing/swallowing problems that prevent adequate po intake (1 pt): No 0 Average po intake (<50% = 4 pts): N/A NA Total Points: REJI Marie Script Editor 3 pts documented in this encounter [facility] Work Phone: 10-24-2023 Hospital course Narrative [facility] Medicine / Discharge Summary Angella Fernandez Account: [id number] Admitted: 10/23/2023 Discharge Date/Time: 10/29/23 7:19 PM Handoff to PCP - Encourage ongoing sobriety - refer to ortho as needed for hip pain Clinical Summary Angella Fernandez is a 53 y.o. male with a PMH of HTN, EtOH abuse who presented to 10/23/2023 with R chest wall pain and R hip pain. Admit work up significant for acute EtOH intoxication, elevated troponin and d dimer. NSTEMI: Suspect demand ischemia in setting of intoxication. R sided reproducible chest pain on admit. Admit EKG NSR with nonspecific TWI/t wave flattening, Troponin I 0.085, 0.097 and 0.09. d dimer 6.63. Admit CT PA without e/o PE, bilateral bronchial wall thickening, minimal mucous plugging in the lower lobe airways. Monitor on telemetry Acute EtOH Intoxication with Dependency: Endorsed 10 years of sobriety with recent relapse 4 days prior to admission. Admit EtOH 282, states drank a bottle of liquor overnight. Abbreviated Ativan taper. CIWA and vitamin supplementation Nausea, Vomiting: suspect secondary to EtOH intoxication. Benign abd exam on admit. Lipase WNL. Supportive care. R Hip Pain: XR R hip non-acute. HUY Tylenol, lidocaine patch. Supportive care, PT eval. HTN: Continued home CCB. Incidental Findings: CT PA on admit with small to moderate sliding HH, 3mm RML pulmonary nodule. Asymptomatic. OP follow up with PCP recommended. Code Status: FULL, confirmed on admission. Discharge Medications Medication List START taking these medications lidocaine 5 % PTCH patch Commonly known as: LIDODERM Place 2 patches on skin every 24 hours. Max of 12 hours of application then remove. LORazepam 0.5 MG TABS Commonly known as: ATIVAN Take 1 tab 10/24 at bedtime, 1 tab 10/25 with breakfast and 1 tab 10/25 with dinner Thera-M TABS Take 1 tablet by mouth daily. thiamine 100 MG TABS Take 1 tablet by mouth daily. CONTINUE taking these medications amLODIPine 10 MG TABS Commonly known as: NORVASC TAKE 1 TABLET BY MOUTH DAILY Atorvastatin 40 MG TABS Commonly known as: LIPITOR Take 1 tablet by mouth daily. Cyclobenzaprine 10 MG TABS Commonly known as: FLEXERIL Where to Get Your Medications These medications were sent to [facility] [id number] [place] [address] - [address] [place] [id number] lidocaine 5 % PTCH patch LORazepam 0.5 MG TABS Thera-M TABS You can get these medications from any pharmacy Bring a paper prescription for each of these medications thiamine 100 MG TABS Physician(s) Family: Apolinar Cameron II (Inactive), , Address: [address] [place] [address] / [place] [address] Future Appointments Date Time Provider Department Center 10/31/2023 11:30 AM Apolinar Cameron II, DO 07[facility] Follow Up: Apolinar Cameron II, DO [address] [place] [phone] Call Left on after hours machine 10/24 Additional Information: Patient seen and examined day of discharge. For more information regarding patient's care, including complete radiology reports, please contact [facility] Medical Records at . Patient instructions, including activity, were given to the patient/family at discharge. Please see the After Visit Summary in the medical record for details. Evaluated the patient on the day of discharge. They are being discharged in good condition. Discussed discharge plan with the patient, who is in agreement. Time spent on discharge: > 30 Minutes Completed by: Samir Wooten DO on 10/29/23, 7:19 PM documented in this encounter [facility] Phone: 10-23-2023 Miscellaneous Notes Pt to room resting in bed drowsy, cooperative. Oxygen in 80s on room air 2LNC applied. 1909 oxygen 83% on 2LNC increased to 4LNC. documented in this encounter [facility] Phone: 10-23-2023 Nurse Note Pt to room resting in bed drowsy, cooperative. Oxygen in 80s on room air 2LNC applied. 1909 oxygen 83% on 2LNC increased to 4LNC. [facility] 10-23-2023 History and physical note [facility] Medicine / History and Physical Note 10/23/23 Angella Fernandez 1970 [id number] Assessment/Plan: Angella Fernandez is a 53 y.o. male with a PMH of HTN, EtOH abuse who presented to 10/23/2023 with R chest wall pain and R hip pain. Admit work up significant for acute EtOH intoxication, elevated troponin and d dimer. NSTEMI: R sided reproducible chest pain on admit. Admit EKG NSR with nonspecific TWI/t wave flattening, Troponin I 0.085, 0.097, d dimer 6.63. Admit CT PA without e/o PE, bilateral bronchial wall thickening, minimal mucous plugging in the lower lobe airways. Suspect demand ischemia in setting of intoxication. Monitor on telemetry, repeat troponin. Acute EtOH Intoxication with Dependency: Endorsed 10 years of sobriety with recent relapse 4 days prior to admission. Admit EtOH 282, states drank a bottle of liquor overnight. CIWA and vitamin supplementation ordered. Nausea, Vomiting: suspect secondary to EtOH intoxication. Benign abd exam on admit. Lipase pending. Supportive care. R Hip Pain: XR R hip non-acute. HUY Tylenol, lidocaine patch. Supportive care, PT eval. HTN: Continued home CCB. Incidental Findings: CT PA on admit with small to moderate sliding HH, 3mm RML pulmonary nodule. Asymptomatic. OP follow up with PCP recommended. Code Status: FULL, confirmed on admission. VTE Prophylaxis: Lovenox SQ Current living situation: home Expected disposition: home Expected length of stay: less than 2 midnights Legal Guardian: No Chief Complaint: R hip and chest wall pain History of Present Illness: Angella Fernandez is a 53 y.o. male with a PMH of HTN, EtOH abuse who presented to 10/23/2023 with R chest wall pain and R hip pain. Admit work up significant for acute EtOH intoxication, elevated troponin and d dimer. Seen in ED 10. Walking around room on evaluation. Reports 2 week history of R hip pain. No overt trauma to the hip. Worsens with ambulation, also w/ sitting. Also endorses R chest wall pain. No trauma to chest wall either. Worsens with palpation. Denied SOB. Denied exertional SOB or chest pain. No diaphoresis. Endorsed nausea, vomiting that started this morning. No hematemesis. Denied abdominal pain. Normal bowel movements. Reports relapse of 10 year sobriety around 4 days ago. Has been drinking [place] since. States drank a whole bottle last night. Reports triggers of pain and asked for a divorce. Feels like he may be starting to experience withdrawal. ROS: 10 systems were reviewed and negative,except as noted above Past Medical, Surgical, Social, Family History: Past Medical History: Diagnosis Date Alcohol withdrawal seizures Bradycardia COVID-19 09/2021 Essential hypertension, benign Migraine Spondylosis, cervical Past Surgical History: Procedure Laterality Date ORCHIECTOMY LAPAROSCOPIC TONSILLECTOMY Social History Socioeconomic History Marital status: Spouse name: Not on file Number of children: Not on file Years of education: Not on file Highest education level: Not on file Occupational History Not on file Tobacco Use Smoking status: Every Day Packs/day: .5 Types: Cigarettes Smokeless tobacco: Never Tobacco comments: quit 2013 Vaping Use Vaping Use: Never used Substance and Sexual Activity Alcohol use: Yes Alcohol/week: 3.0 standard drinks of alcohol Types: 3 Shots of liquor per week Comment: Hx of binge drinking/withdrawal/seizures Drug use: Not Currently Types: Marijuana Sexual activity: Not on file Other Topics Concern Not on file Social History Narrative Not on file Social Determinants of Health Financial Resource Strain: Not on file Food Insecurity: Not on file Transportation Needs: Not on file Physical Activity: Not on file Stress: Not on file Social Connections: Not on file Intimate Partner Violence: Not on file Housing Stability: Not on file Family History Problem Relation Age of Onset Other - Specify Mother pancreatitis Liver Disease Father No known problems Sister No known problems Brother No known problems Brother No known problems Son Current Medications: (Not in a hospital admission) Physical Exam: BP 146/90 Pulse 98 Temp 98.4 F (36.9 C) (Temporal) Resp 18 Ht 1.803 m (5' 11 ) Wt 103.4 kg (228 lb) SpO2 96% BMI 31.80 kg/m Smoking Status Every Day General: NAD Eyes: EOMI ENT: MMM Cardiovascular: RRR Respiratory: Clear throughout, tenderness to palpation of R chest wall Gastrointestinal: soft, non-distended, +BS Genitourinary: no suprapubic tenderness, no amaya in place Musculoskeletal: no joint edema, no bony deformities. R hip TTP. Skin: warm, dry Neuro: alert and oriented x3 with no focal deficits Psych: Anxious Labs, Imaging, and Studies reviewed: Recent Labs 10/23/23 1015 WBC 10.03 HGB 14.3 HCT 40.4 PLATELET 219 Recent Labs 10/23/23 1125 SODIUM 139 POTASSIUM 3.5 CHLORIDE 106 CO2 14.0* BUN 14 CREATSERUM 0.79* GFR 108 GLUCOSE 120* CALCIUM 8.5 ALBUMIN 4.3 Recent Labs 10/23/23 1125 ALT 42 AST 67* ALKPHOS 82 BILITOTAL 2.7* No results for input(s): INR in the last 72 hours. Associated attestation - Samir Wooten DO - 10/23/2023 5:30 PM EST I personally saw the patient on 10/23/2023 and agree with (or revise) Elvis Colebrt findings. I performed the substantive part of the medical decision making for this encounter. Angella Fernandez is a 53 y.o. male with a PMH of HTN and EtOH abuse who presented to with various complaints: R hip and rib pain found to be acutely intoxicated with mild trop positivity. EtOH 282 Trop: 0.08>0.09, EKG no acute ST changes NSTEMI: Suspect demand and/or EtOH cardiomyopathy. EKG nonacute, Trop essentially flat trend. Repeat trop x 1. Consider TTE EtOH intoxication/dependence: Known history, reports long history with recent relapse. Drank bottle of crown overnight. EtOH 282 @ 1128 hrs. Ativan taper. CIWA. R chest/hip pain: Denies recent falls, worsened after indoor golf. Xray nonacute. Supportive care. Current living situation: Home Expected disposition: Same Expected discharge date: 10/25 General: Uncomfortable appearing, somewhat restless. Eyes: anicteric, EOMI ENT: neck supple, moist mucous membranes Cardiovascular: Tachy regular rate and rhythm, no peripheral edema Respiratory: clear to auscultation b/L; no wheezes/crackles Gastrointestinal: soft, non-distended Genitourinary: no suprapubic tenderness, no amaya in place Musculoskeletal: no joint edema, no bony deformities Skin: warm, dry Neuro: alert and oriented x3 with no focal deficits. Mild tremor. Psych: Anxious [facility] [place] [employer] Work Phone: 10-23-2023 History and physical note [facility] / History and Physical Note 10/23/23 Angella Fernandez 1970 [id number] Assessment/Plan: Angella Fernandez is a 53 y.o. male with a PMH of HTN, EtOH abuse who presented to 10/23/2023 with R chest wall pain and R hip pain. Admit work up significant for acute EtOH intoxication, elevated troponin and d dimer. NSTEMI: R sided reproducible chest pain on admit. Admit EKG NSR with nonspecific TWI/t wave flattening, Troponin I 0.085, 0.097, d dimer 6.63. Admit CT PA without e/o PE, bilateral bronchial wall thickening, minimal mucous plugging in the lower lobe airways. Suspect demand ischemia in setting of intoxication. Monitor on telemetry, repeat troponin. Acute EtOH Intoxication with Dependency: Endorsed 10 years of sobriety with recent relapse 4 days prior to admission. Admit EtOH 282, states drank a bottle of liquor overnight. CIWA and vitamin supplementation ordered. Nausea, Vomiting: suspect secondary to EtOH intoxication. Benign abd exam on admit. Lipase pending. Supportive care. R Hip Pain: XR R hip non-acute. HUY Tylenol, lidocaine patch. Supportive care, PT eval. HTN: Continued home CCB. Incidental Findings: CT PA on admit with small to moderate sliding HH, 3mm RML pulmonary nodule. Asymptomatic. OP follow up with PCP recommended. Code Status: FULL, confirmed on admission. VTE Prophylaxis: Lovenox SQ Current living situation: home Expected disposition: home Expected length of stay: less than 2 midnights Legal Guardian: No Chief Complaint: R hip and chest wall pain History of Present Illness: Angella Fernandez is a 53 y.o. male with a PMH of HTN, EtOH abuse who presented to 10/23/2023 with R chest wall pain and R hip pain. Admit work up significant for acute EtOH intoxication, elevated troponin and d dimer. Seen in ED 10. Walking around room on evaluation. Reports 2 week history of R hip pain. No overt trauma to the hip. Worsens with ambulation, also w/ sitting. Also endorses R chest wall pain. No trauma to chest wall either. Worsens with palpation. Denied SOB. Denied exertional SOB or chest pain. No diaphoresis. Endorsed nausea, vomiting that started this morning. No hematemesis. Denied abdominal pain. Normal bowel movements. Reports relapse of 10 year sobriety around 4 days ago. Has been drinking [place] since. States drank a whole bottle last night. Reports triggers of pain and asked for a divorce. Feels like he may be starting to experience withdrawal. ROS: 10 systems were reviewed and negative,except as noted above Past Medical, Surgical, Social, Family History: Past Medical History: Diagnosis Date Alcohol withdrawal seizures Bradycardia COVID-19 09/2021 Essential hypertension, benign Migraine Spondylosis, cervical Past Surgical History: Procedure Laterality Date ORCHIECTOMY LAPAROSCOPIC TONSILLECTOMY Social History Socioeconomic History Marital status: Spouse name: Not on file Number of children: Not on file Years of education: Not on file Highest education level: Not on file Occupational History Not on file Tobacco Use Smoking status: Every Day Packs/day: .5 Types: Cigarettes Smokeless tobacco: Never Tobacco comments: quit 2013 Vaping Use Vaping Use: Never used Substance and Sexual Activity Alcohol use: Yes Alcohol/week: 3.0 standard drinks of alcohol Types: 3 Shots of liquor per week Comment: Hx of binge drinking/withdrawal/seizures Drug use: Not Currently Types: Marijuana Sexual activity: Not on file Other Topics Concern Not on file Social History Narrative Not on file Social Determinants of Health Financial Resource Strain: Not on file Food Insecurity: Not on file Transportation Needs: Not on file Physical Activity: Not on file Stress: Not on file Social Connections: Not on file Intimate Partner Violence: Not on file Housing Stability: Not on file Family History Problem Relation Age of Onset Other - Specify Mother pancreatitis Liver Disease Father No known problems Sister No known problems Brother No known problems Brother No known problems Son Current Medications: (Not in a hospital admission) Physical Exam: BP 146/90 Pulse 98 Temp 98.4 F (36.9 C) (Temporal) Resp 18 Ht 1.803 m (5' 11 ) Wt 103.4 kg (228 lb) SpO2 96% BMI 31.80 kg/m Smoking Status Every Day General: NAD Eyes: EOMI ENT: MMM Cardiovascular: RRR Respiratory: Clear throughout, tenderness to palpation of R chest wall Gastrointestinal: soft, non-distended, +BS Genitourinary: no suprapubic tenderness, no amaya in place Musculoskeletal: no joint edema, no bony deformities. R hip TTP. Skin: warm, dry Neuro: alert and oriented x3 with no focal deficits Psych: Anxious Labs, Imaging, and Studies reviewed: Recent Labs 10/23/23 1015 WBC 10.03 HGB 14.3 HCT 40.4 PLATELET 219 Recent Labs 10/23/23 1125 SODIUM 139 POTASSIUM 3.5 CHLORIDE 106 CO2 14.0* BUN 14 CREATSERUM 0.79* GFR 108 GLUCOSE 120* CALCIUM 8.5 ALBUMIN 4.3 Recent Labs 10/23/23 1125 ALT 42 AST 67* ALKPHOS 82 BILITOTAL 2.7* No results for input(s): INR in the last 72 hours. Associated attestation - Samir Wooten DO - 10/23/2023 5:30 PM EST I personally saw the patient on 10/23/2023 and agree with (or revise) Elvis Colbert findings. I performed the substantive part of the medical decision making for this encounter. Angella Fernandez is a 53 y.o. male with a PMH of HTN and EtOH abuse who presented to with various complaints: R hip and rib pain found to be acutely intoxicated with mild trop positivity. EtOH 282 Trop: 0.08>0.09, EKG no acute ST changes NSTEMI: Suspect demand and/or EtOH cardiomyopathy. EKG nonacute, Trop essentially flat trend. Repeat trop x 1. Consider TTE EtOH intoxication/dependence: Known history, reports long history with recent relapse. Drank bottle of crown overnight. EtOH 282 @ 1128 hrs. Ativan taper. CIWA. R chest/hip pain: Denies recent falls, worsened after indoor golf. Xray nonacute. Supportive care. Current living situation: Home Expected disposition: Same Expected discharge date: 10/25 General: Uncomfortable appearing, somewhat restless. Eyes: anicteric, EOMI ENT: neck supple, moist mucous membranes Cardiovascular: Tachy regular rate and rhythm, no peripheral edema Respiratory: clear to auscultation b/L; no wheezes/crackles Gastrointestinal: soft, non-distended Genitourinary: no suprapubic tenderness, no amaya in place Musculoskeletal: no joint edema, no bony deformities Skin: warm, dry Neuro: alert and oriented x3 with no focal deficits. Mild tremor. Psych: Anxious documented in this encounter [employer] Phone: 10-23-2023 Note IMPRESSION: 1. Suboptimal evaluation of the segmental and subsegmental pulmonary arteries of the left lower lobe due to motion degradation. No convincing CT evidence of acute pulmonary embolism, as visualized. 2. Bilateral bronchial wall thickening with minimal mucous plugging in the lower lobe airways. Minimal bilateral subsegmental atelectasis/scarring. 3. Small to moderate sliding-type hiatal hernia. 4. Noncalcified pulmonary nodule in the right middle lobe measuring 3 mm. A follow-up CT of the chest could be performed in 12 months utilizing Mallory society guidelines if clinically warranted. RADIOLOGY 10-23-2023 Physician Emergency department Note Chief Complaint Patient presents with Rib Pain Hip Pain Angella Fernandez is a 53 y.o. male who presents with complaints of right hip and right rib pain. Patient denies any injury or trauma. States that he went [place] [employer] last week but states that he would did not hit the many golf balls. It states that since then he has had pain in his right rib as well as his right hip. Denies any known trauma or direct blow to the areas. Patient states the pain is worse when he tries to get up. States that once he does get up he was he was able to walk but does hurt when he walks. Patient denies any redness of the skin. Denies fevers or chills. Denies any paresthesias or anesthesias lower extremities. Patient denies history of blood clots or clotting disorders. Past Medical History: Diagnosis Date Alcohol withdrawal seizures Bradycardia COVID-19 09/2021 Essential hypertension, benign Migraine Spondylosis, cervical Past Surgical History: Procedure Laterality Date ORCHIECTOMY LAPAROSCOPIC TONSILLECTOMY Family History Problem Relation Age of Onset Other - Specify Mother pancreatitis Liver Disease Father No known problems Sister No known problems Brother No known problems Brother No known problems Son No Known Allergies Social History Socioeconomic History Marital status: Spouse name: Not on file Number of children: Not on file Years of education: Not on file Highest education level: Not on file Occupational History Not on file Tobacco Use Smoking status: Every Day Packs/day: .5 Types: Cigarettes Smokeless tobacco: Never Tobacco comments: quit 2013 Vaping Use Vaping Use: Never used Substance and Sexual Activity Alcohol use: Yes Alcohol/week: 3.0 standard drinks of alcohol Types: 3 Shots of liquor per week Comment: Hx of binge drinking/withdrawal/seizures Drug use: Not Currently Types: Marijuana Sexual activity: Not on file Other Topics Concern Not on file Social History Narrative Not on file Social Determinants of Health Financial Resource Strain: Not on file Food Insecurity: Not on file Transportation Needs: Not on file Physical Activity: Not on file Stress: Not on file Social Connections: Not on file Intimate Partner Violence: Not on file Housing Stability: Not on file Review of systems: A 10 point review of systems was discussed with the patient and the pertinent positives and negatives are listed in the HPI. Physical Exam ED Triage Vitals Enc Vitals Group BP 10/23/23 0958 128/85 Pulse (Heart Rate) 10/23/23 0958 103 Resp Rate 10/23/23 0958 20 Temp 10/23/23 0958 98.4 F (36.9 C) Temp source 10/23/23 0958 Temporal SpO2 -- Weight 10/23/23 0959 103.4 kg (228 lb) Height 10/23/23 0959 1.803 m (5' 11 ) Head Circumference -- Peak Flow -- Pain Score -- Pain Loc -- Pain Edu? -- Excl. in GC? -- Vitals: 10/23/23 1000 10/23/23 1236 10/23/23 1400 10/23/23 1404 BP: 128/85 121/85 146/90 146/90 Pulse: 104 102 98 Resp: 14 18 Temp: TempSrc: SpO2: 91% 96% 95% 96% Weight: Height: Physical Exam General: no distress HEENT normocephalic, atraumatic, extraocular muscles intact. Neck: Full range of motion. Lungs: Clear to auscultation, no wheezing noted. Patient tender palpating the right ribcage in the mid ribcage along the mid axillary to mid clavicular line. It was very diffuse. It was no step-off or deformity. But he did complain of tenderness with palpation. Heart: Regular rate rhythm. Abdomen: Soft, nontender. Bowel sounds noted. Extremities: No obvious erythema ecchymosis or swelling of the right hip. Patient was tender especially in the anterior lateral hip. He did state that palpation made the pain worse. It was range motion was full but complain of pain with range motion. Right pedal pulse 2 4th. Neurologic: Motor and sensory intact. Skin: warm and dry, no rashes. Results for orders placed or performed during the hospital encounter of 10/23/23 CBC, EDIF, PLATELET Result Value Ref Range WBC (WHITE BLOOD COUNT) 10.03 3.12 - 10.36 10*3/uL RBC 4.48 3.59 - 6.32 10*6/uL HEMOGLOBIN (HGB) 14.3 11.4 - 17.7 g/dL HEMATOCRIT (HCT) 40.4 34.3 - 53.1 % MEAN CELL VOLUME 90.2 81.6 - 95.6 fL Mean Cell HGB 31.9 26.2 - 32.7 pg MEAN CELL HGB CONCENTRATION 35.4 (H) 31.6 - 35.0 g/dL PLATELET COUNT 219 150 - 375 10*3/uL RBC DISTRIBUTION 12.6 11.4 - 14.4 % MEAN PLATELET VOLUME 8.8 (L) 8.9 - 11.5 fL NEUTROPHIL % 70.4 (H) 36.0 - 66.0 % LYMPHOCYTES % 18.5 (L) 24.0 - 44.0 % MONOCYTE % 9.8 5.0 - 12.0 % EOSINOPHILS 0.2 0.0 - 4.0 % BASOPHIL % 0.8 0.0 - 2.0 % NEUTROPHILS (ABSOLUTE) 7.06 2.00 - 7.50 10*3/uL LYMPHOCYTES, ABSOLUTE 1.86 1.00 - 4.80 10*3/uL MONOCYTES, ABSOLUTE 0.98 0.20 - 1.20 10*3/uL EOSINOPHILS, ABSOLUTE 0.02 0.00 - 0.50 10*3/uL ABSOLUTE BASOPHIL COUNT 0.08 0.00 - 0.20 10*3/uL RBC, NUCLEATED 0.0 % RBC, NUCLEATED, ABSOLUTE 0.00 0.00 - 0.50 COMPREHENSIVE METABOLIC PANEL Result Value Ref Range SODIUM 139 136 - 145 mmol/L POTASSIUM 3.5 3.5 - 5.0 mmol/L CHLORIDE 106 100 - 110 mmol/L CARBON DIOXIDE (CO2) 14.0 (L) 22.0 - 30.0 mm/Hg Glucose 120 (H) 70 - 100 mg/dL BUN 14 7 - 22 mg/dL CREATININE SERUM 0.79 (L) 0.80 - 1.50 mg/dL CALCIUM 8.5 8.4 - 10.2 mg/dL PROTEIN, TOTAL 7.3 6.0 - 8.2 g/dL Albumin 4.3 3.5 - 5.0 g/dL ALT 42 21 - 72 U/L ALKALINE PHOSPHATASE 82 38 - 126 U/L AST 67 (H) 17 - 59 U/L BILIRUBIN, TOTAL 2.7 (H) 0.2 - 1.2 mg/dL ANION GAP 18.4 mmol/L ESTIMATED GFR, NON AMER 108 >60 mL/min/1.73 m2 TROPONIN Result Value Ref Range TROPONIN 0.085 0.012 - 0.120 ng/mL NT-PRO B-TYPE NATRIURETIC PEPTIDE Result Value Ref Range NT-PRO BNP 335.00 0.00 - 900.00 pg/mL D-DIMER,QUANTITATIVE Result Value Ref Range D-DIMER 6.63 (H) 0.27 - 0.56 ug/mL C REACTIVE PROTEIN Result Value Ref Range C-Reactive Protein 3.3 (H) 0.0 - 0.9 mg/dL SEDIMENTATION RATE, AUTOMATED Result Value Ref Range SEDIMENTATION RATE AUTOMATED 12 (H) 0 - 10 mm/hr ALCOHOL (ETHANOL),BLOOD Result Value Ref Range ALCOHOL, ETHYL, SERUM 282 <10 mg/dL TROPONIN Result Value Ref Range TROPONIN 0.097 0.012 - 0.120 ng/mL CT PE STUDY Final Result IMPRESSION: 1. Suboptimal evaluation of the segmental and subsegmental pulmonary arteries of the left lower lobe due to motion degradation. No convincing CT evidence of acute pulmonary embolism, as visualized. 2. Bilateral bronchial wall thickening with minimal mucous plugging in the lower lobe airways. Minimal bilateral subsegmental atelectasis/scarring. 3. Small to moderate sliding-type hiatal hernia. 4. Noncalcified pulmonary nodule in the right middle lobe measuring 3 mm. A follow-up CT of the chest could be performed in 12 months utilizing Mallory society guidelines if clinically warranted. XR HIP WITH PELVIS RIGHT Final Result IMPRESSION: 1. No acute osseous abnormality. 2. Osteoarthritis. XR CHEST 1 VIEW PORTABLE Final Result IMPRESSION: Stable chest without acute radiographic abnormality. EKG Interpretation (If blank none were preformed) EKG obtained shows sinus tachycardia with a rate of 102. A SD interval of 150 and a QTC of 479. There was no acute injury pattern identified or ST elevations. ED Course MEDICAL DECISION MAKING Number and Complexity of Problems Differential Diagnosis includes but is not limited to: Rib pain/chest pain/hip pain/alcohol intoxication/ME/NSTEMI [facility] Data External documents reviewed: nursing notes this encounter, patient medical records available in [facility] locally or with care everywhere My EKG interpretation: As noted above (none if blank) My CT interpretation: CT PE protocol was obtained read by radiologist as no PE some bronchial wall thickening. (none if blank) My X-ray interpretation: Chest x-ray read by radiologist as no acute findings . X-ray of the right hip also obtain read by radiologist as no acute findings. (none if blank) My Ultrasound interpretation: (none if blank) Decision rules/scores evaluated: Heart Score, NIH, ABCD2 Notable lab results: CBC and CMP did not show any acute findings required emergent intervention. Patient had 2 troponins initial troponin was 0.085. 3 hour repeat was 0.097 Discussed with: Dr. Wooten the hospitalist Treatment and Disposition ED Course: Given patient's history and physical exam findings laboratory studies including CT and x-rays were obtained as above. This time I did have concerned given the patient having chest pain even though it was right-sided but his troponin is going up. Again his baseline was 0.085 in his repeat was 0.097. This is also significant increase from his troponins 6 months ago. Therefore I do feel the patient would benefit from a chest pain rule out workup. I did speak with the hospitalist was agreeable. Patient is also agreeable to stay as well. 1. Chest pain, unspecified type RAMOS Whipple 10/23/23 [facility] [employer] Phone: 10-23-2023 Emergency department Note Chief Complaint Patient presents with Rib Pain Hip Pain Angella Fernandez is a 53 y.o. male who presents with complaints of right hip and right rib pain. Patient denies any injury or trauma. States that he went [place] [employer] [place] but states that he would did not hit the many golf balls. It states that since then he has had pain in his right rib as well as his right hip. Denies any known trauma or direct blow to the areas. Patient states the pain is worse when he tries to get up. States that once he does get up he was he was able to walk but does hurt when he walks. Patient denies any redness of the skin. Denies fevers or chills. Denies any paresthesias or anesthesias lower extremities. Patient denies history of blood clots or clotting disorders. Past Medical History: Diagnosis Date Alcohol withdrawal seizures Bradycardia COVID-19 09/2021 Essential hypertension, benign Migraine Spondylosis, cervical Past Surgical History: Procedure Laterality Date ORCHIECTOMY LAPAROSCOPIC TONSILLECTOMY Family History Problem Relation Age of Onset Other - Specify Mother pancreatitis Liver Disease Father No known problems Sister No known problems Brother No known problems Brother No known problems Son No Known Allergies Social History Socioeconomic History Marital status: Spouse name: Not on file Number of children: Not on file Years of education: Not on file Highest education level: Not on file Occupational History Not on file Tobacco Use Smoking status: Every Day Packs/day: .5 Types: Cigarettes Smokeless tobacco: Never Tobacco comments: quit 2013 Vaping Use Vaping Use: Never used Substance and Sexual Activity Alcohol use: Yes Alcohol/week: 3.0 standard drinks of alcohol Types: 3 Shots of liquor per week Comment: Hx of binge drinking/withdrawal/seizures Drug use: Not Currently Types: Marijuana Sexual activity: Not on file Other Topics Concern Not on file Social History Narrative Not on file Social Determinants of Health Financial Resource Strain: Not on file Food Insecurity: Not on file Transportation Needs: Not on file Physical Activity: Not on file Stress: Not on file Social Connections: Not on file Intimate Partner Violence: Not on file Housing Stability: Not on file Review of systems: A 10 point review of systems was discussed with the patient and the pertinent positives and negatives are listed in the HPI. Physical Exam ED Triage Vitals Enc Vitals Group BP 10/23/23 0958 128/85 Pulse (Heart Rate) 10/23/23 0958 103 Resp Rate 10/23/23 0958 20 Temp 10/23/23 0958 98.4 F (36.9 C) Temp source 10/23/23 0958 Temporal SpO2 -- Weight 10/23/23 0959 103.4 kg (228 lb) Height 10/23/23 0959 1.803 m (5' 11 ) Head Circumference -- Peak Flow -- Pain Score -- Pain Loc -- Pain Edu? -- Excl. in GC? -- Vitals: 10/23/23 1000 10/23/23 1236 10/23/23 1400 10/23/23 1404 BP: 128/85 121/85 146/90 146/90 Pulse: 104 102 98 Resp: 14 18 Temp: TempSrc: SpO2: 91% 96% 95% 96% Weight: Height: Physical Exam General: no distress HEENT normocephalic, atraumatic, extraocular muscles intact. Neck: Full range of motion. Lungs: Clear to auscultation, no wheezing noted. Patient tender palpating the right ribcage in the mid ribcage along the mid axillary to mid clavicular line. It was very diffuse. It was no step-off or deformity. But he did complain of tenderness with palpation. Heart: Regular rate rhythm. Abdomen: Soft, nontender. Bowel sounds noted. Extremities: No obvious erythema ecchymosis or swelling of the right hip. Patient was tender especially in the anterior lateral hip. He did state that palpation made the pain worse. It was range motion was full but complain of pain with range motion. Right pedal pulse 2 4th. Neurologic: Motor and sensory intact. Skin: warm and dry, no rashes. Results for orders placed or performed during the hospital encounter of 10/23/23 CBC, EDIF, PLATELET Result Value Ref Range WBC (WHITE BLOOD COUNT) 10.03 3.12 - 10.36 10*3/uL RBC 4.48 3.59 - 6.32 10*6/uL HEMOGLOBIN (HGB) 14.3 11.4 - 17.7 g/dL HEMATOCRIT (HCT) 40.4 34.3 - 53.1 % MEAN CELL VOLUME 90.2 81.6 - 95.6 fL Mean Cell HGB 31.9 26.2 - 32.7 pg MEAN CELL HGB CONCENTRATION 35.4 (H) 31.6 - 35.0 g/dL PLATELET COUNT 219 150 - 375 10*3/uL RBC DISTRIBUTION 12.6 11.4 - 14.4 % MEAN PLATELET VOLUME 8.8 (L) 8.9 - 11.5 fL NEUTROPHIL % 70.4 (H) 36.0 - 66.0 % LYMPHOCYTES % 18.5 (L) 24.0 - 44.0 % MONOCYTE % 9.8 5.0 - 12.0 % EOSINOPHILS 0.2 0.0 - 4.0 % BASOPHIL % 0.8 0.0 - 2.0 % NEUTROPHILS (ABSOLUTE) 7.06 2.00 - 7.50 10*3/uL LYMPHOCYTES, ABSOLUTE 1.86 1.00 - 4.80 10*3/uL MONOCYTES, ABSOLUTE 0.98 0.20 - 1.20 10*3/uL EOSINOPHILS, ABSOLUTE 0.02 0.00 - 0.50 10*3/uL ABSOLUTE BASOPHIL COUNT 0.08 0.00 - 0.20 10*3/uL RBC, NUCLEATED 0.0 % RBC, NUCLEATED, ABSOLUTE 0.00 0.00 - 0.50 COMPREHENSIVE METABOLIC PANEL Result Value Ref Range SODIUM 139 136 - 145 mmol/L POTASSIUM 3.5 3.5 - 5.0 mmol/L CHLORIDE 106 100 - 110 mmol/L CARBON DIOXIDE (CO2) 14.0 (L) 22.0 - 30.0 mm/Hg Glucose 120 (H) 70 - 100 mg/dL BUN 14 7 - 22 mg/dL CREATININE SERUM 0.79 (L) 0.80 - 1.50 mg/dL CALCIUM 8.5 8.4 - 10.2 mg/dL PROTEIN, TOTAL 7.3 6.0 - 8.2 g/dL Albumin 4.3 3.5 - 5.0 g/dL ALT 42 21 - 72 U/L ALKALINE PHOSPHATASE 82 38 - 126 U/L AST 67 (H) 17 - 59 U/L BILIRUBIN, TOTAL 2.7 (H) 0.2 - 1.2 mg/dL ANION GAP 18.4 mmol/L ESTIMATED GFR, NON AMER 108 >60 mL/min/1.73 m2 TROPONIN Result Value Ref Range TROPONIN 0.085 0.012 - 0.120 ng/mL NT-PRO B-TYPE NATRIURETIC PEPTIDE Result Value Ref Range NT-PRO BNP 335.00 0.00 - 900.00 pg/mL D-DIMER,QUANTITATIVE Result Value Ref Range D-DIMER 6.63 (H) 0.27 - 0.56 ug/mL C REACTIVE PROTEIN Result Value Ref Range C-Reactive Protein 3.3 (H) 0.0 - 0.9 mg/dL SEDIMENTATION RATE, AUTOMATED Result Value Ref Range SEDIMENTATION RATE AUTOMATED 12 (H) 0 - 10 mm/hr ALCOHOL (ETHANOL),BLOOD Result Value Ref Range ALCOHOL, ETHYL, SERUM 282 <10 mg/dL TROPONIN Result Value Ref Range TROPONIN 0.097 0.012 - 0.120 ng/mL CT PE STUDY Final Result IMPRESSION: 1. Suboptimal evaluation of the segmental and subsegmental pulmonary arteries of the left lower lobe due to motion degradation. No convincing CT evidence of acute pulmonary embolism, as visualized. 2. Bilateral bronchial wall thickening with minimal mucous plugging in the lower lobe airways. Minimal bilateral subsegmental atelectasis/scarring. 3. Small to moderate sliding-type hiatal hernia. 4. Noncalcified pulmonary nodule in the right middle lobe measuring 3 mm. A follow-up CT of the chest could be performed in 12 months utilizing [employer] guidelines if clinically warranted. XR HIP WITH PELVIS RIGHT Final Result IMPRESSION: 1. No acute osseous abnormality. 2. Osteoarthritis. XR CHEST 1 VIEW PORTABLE Final Result IMPRESSION: Stable chest without acute radiographic abnormality. EKG Interpretation (If blank none were preformed) EKG obtained shows sinus tachycardia with a rate of 102. A SD interval of 150 and a QTC of 479. There was no acute injury pattern identified or ST elevations. ED Course MEDICAL DECISION MAKING Number and Complexity of Problems Differential Diagnosis includes but is not limited to: Rib pain/chest pain/hip pain/alcohol intoxication/ME/NSTEMI MDM Data External documents reviewed: nursing notes this encounter, patient medical records available in [facility] locally or with care everywhere My EKG interpretation: As noted above (none if blank) My CT interpretation: CT PE protocol was obtained read by radiologist as no PE some bronchial wall thickening. (none if blank) My X-ray interpretation: Chest x-ray read by radiologist as no acute findings . X-ray of the right hip also obtain read by radiologist as no acute findings. (none if blank) My Ultrasound interpretation: (none if blank) Decision rules/scores evaluated: Heart Score, NIH, ABCD2 Notable lab results: CBC and CMP did not show any acute findings required emergent intervention. Patient had 2 troponins initial troponin was 0.085. 3 hour repeat was 0.097 Discussed with: Dr. Wooten the hospitalist Treatment and Disposition ED Course: Given patient's history and physical exam findings laboratory studies including CT and x-rays were obtained as above. This time I did have concerned given the patient having chest pain even though it was right-sided but his troponin is going up. Again his baseline was 0.085 in his repeat was 0.097. This is also significant increase from his troponins 6 months ago. Therefore I do feel the patient would benefit from a chest pain rule out workup. I did speak with the hospitalist was agreeable. Patient is also agreeable to stay as well. 1. Chest pain, unspecified type RAMOS Whipple 10/23/23 1539 Pt presents to the ED with reports of right rib and right hip pain for the past week worse the past two days. Pt states he thinks he injured himself while playing golf. Pt states he is unable to walk due to the pain. Pt reports drinking heavily the past four days. States he has been sober for the past year. Had 6 beers this morning. documented in this encounter [facility] Work Phone: 10-23-2023 Emergency department Note Pt presents to the ED with reports of right rib and right hip pain for the past week worse the past two days. Pt states he thinks he injured himself while playing golf. Pt states he is unable to walk due to the pain. Pt reports drinking heavily the past four days. States he has been sober for the past year. Had 6 beers this morning. [facility] 08-29-2023 History of Presen t illness Narrative Subjective History of Present Illness Chronic problem mgt blood pressure - not checking - no alcohol for 3 months Return of chronic daily headache -- suboccipital - no new injury has dc and massage therapy scheduled - past PMR /Pain consult and PT --also with left hand median nerve distribution numbness 0 left arm numbness - when lays certain positions at night - 3 months - no new injury noted - remote sports injuries to shoulder Requests fasting labs Ethmoid sinus congestion and cough Objective Review of Systems Constitutional: Positive for fatigue. Negative for activity change, appetite change, chills, diaphoresis and fever. HENT: Positive for congestion. Eyes: Negative for visual disturbance. Respiratory: Positive for cough and chest tightness. Negative for shortness of breath. Cardiovascular: Negative for chest pain and palpitations. Gastrointestinal: Positive for vomiting. Negative for abdominal pain, constipation, diarrhea and nausea. Genitourinary: Negative for difficulty urinating. Musculoskeletal: Positive for myalgias and neck pain. Neurological: Positive for numbness and headaches. Negative for weakness. Vitals: Blood pressure 140/80, pulse 85, resp. rate 12, height 1.803 m (5' 11 ), weight 103.5 kg (228 lb 4 oz), SpO2 97 %. Physical Exam Vitals reviewed. HENT: Nose: No congestion. Mouth/Throat: Mouth: Mucous membranes are moist. Cardiovascular: Rate and Rhythm: Normal rate and regular rhythm. Pulses: Normal pulses. Heart sounds: Normal heart sounds. Pulmonary: Effort: Pulmonary effort is normal. Breath sounds: Normal breath sounds. Abdominal: General: Bowel sounds are normal. Palpations: Abdomen is soft. Tenderness: There is no abdominal tenderness. Musculoskeletal: General: Tenderness present. Cervical back: Tenderness present. Lymphadenopathy: Cervical: No cervical adenopathy. Neurological: Mental Status: He is alert. Sensory: Sensory deficit present. Motor: No weakness. Deep Tendon Reflexes: Reflexes normal. Psychiatric: Mood and Affect: Mood normal. Neurological Exam Mental Status Alert. Cts signs left hand with tap or compression triggers pain to thumb - shoulder motion no restricted no abduction weakness -- no pulse change or triggering of numbness to arm with head compression or rom or abduction testing for c spine radicular changes or thoracic outlet TTA ct oz --functional rom c spine Assessment and Plan BP stable Labs Chronic headache --PMR referral Neuralgia =arm -hand - labs and emg referral documented in this encounter [facility] Phone: 04-30-2023 Emergency department Note Pt reminded to keep his arm straight for IVF to infuse. [facility] Phone: 04-30-2023 Emergency department Note Pt reminded to keep his arm straight for IVF to infuse. Pt IVF on an IV pump, pt not cooperative with keeping his arm straight, education given. Chief Complaint Patient presents with Chest Pain Shortness of Breath Angella Fernandez is a 52 y.o. male Patient presents for shortness of breath, alcohol use disorder. Patient states 1 week ago his gave him paperwork for divorce. States he has history of alcoholism, completed treatment programs in the past. States he had not drank for months however after receiving divorce papers started drinking 1 week ago. States he was drinking 12 shots of [place] [employer] per day. Last drink yesterday, states he can not remember what time. States he has not been able to sleep, but has been intermittently sleeping for short periods throughout the day. States he is feeling fatigued, short of breath. This morning tried to go outside to go to doctor's office but began having some tightness in chest. Per EMS reported patient has had similar episodes of chest pain in the past with negative workup due to similar reactions to stressful scenarios. Patient denies any history of cardiac disease. The history is provided by the patient. Discussed with Patient and/or Independent Historians above. Symptoms & severity: See HPI above. Chronic illnesses impacting care: See PMH/Problem List below External documents reviewed (EMR notes/previous encounters/SNF documents/CareEverywhere): Yes PMH: Past Medical History: Diagnosis Date Alcohol withdrawal seizures Bradycardia COVID-19 09/2021 Essential hypertension, benign Migraine Spondylosis, cervical Patient Active Problem List Obesity (BMI 30.0-34.9) Bronchitis Essential hypertension Bradycardia PSH: Past Surgical History: Procedure Laterality Date ORCHIECTOMY LAPAROSCOPIC TONSILLECTOMY Family Hx: Family History Problem Relation Age of Onset Other - Specify Mother pancreatitis Liver Disease Father No known problems Sister No known problems Brother No known problems Brother No known problems Son Allergies: No Known Allergies Social Hx: Social History Socioeconomic History Marital status: Spouse name: Not on file Number of children: Not on file Years of education: Not on file Highest education level: Not on file Occupational History Not on file Tobacco Use Smoking status: Every Day Packs/day: 0.50 Types: Cigarettes Smokeless tobacco: Never Tobacco comments: quit 2013 Vaping Use Vaping Use: Never used Substance and Sexual Activity Alcohol use: Yes Alcohol/week: 3.0 standard drinks of alcohol Types: 3 Shots of liquor per week Comment: Hx of binge drinking/withdrawal/seizures Drug use: Not Currently Types: Marijuana Sexual activity: Not on file Other Topics Concern Not on file Social History Narrative Not on file Social Determinants of Health Financial Resource Strain: Not on file Food Insecurity: Not on file Transportation Needs: Not on file Physical Activity: Not on file Stress: Not on file Social Connections: Not on file Intimate Partner Violence: Not on file Housing Stability: Not on file Medications: Current Outpatient Medications Medication Instructions Albuterol (ProAir HFA) 108 (90 Base) MCG/ACT Aero Soln inhaler 2 puffs, Inhalation, EVERY 6 HOURS NEEDED amLODIPine (NORVASC) 10 mg, Oral, DAILY benzonatate (TESSALON) 200 mg, Oral, 3 TIMES DAILY NEEDED Cyclobenzaprine (FLEXERIL) 5 mg, Oral, DAILY AT BEDTIME Escitalopram (LEXAPRO) 10 mg, Oral, DAILY Gabapentin (NEURONTIN) 300 mg, Oral, Nightly hydrOXYzine HCl (ATARAX) 25 mg, Oral, EVERY 6 HOURS NEEDED predniSONE 20 MG tablet Days 1-3 3 , 4-6 2, 7-9 1 Tetanus, Diphtheria, and Acellular Pertussis Vaccine 5-2-15.5 LF-MCG/0.5 Suspension 0.5 mL, Intramuscular, ONCE (IN CLINIC) traZODone 50 MG tablet TAKE ONE TABLET BY MOUTH EVERY EVENING zoster vaccine live 69171 UNT/0.65ML Recon Susp 0.65 mL, Subcutaneous, ONCE (IN CLINIC) ROS Review of Systems Constitutional: Positive for fatigue. Negative for activity change, appetite change, chills, diaphoresis and fever. HENT: Negative for congestion, rhinorrhea, sinus pressure, sinus pain and sore throat. Eyes: Negative for visual disturbance. Respiratory: Positive for chest tightness and shortness of breath. Negative for cough. Cardiovascular: Negative for chest pain, palpitations and leg swelling. Gastrointestinal: Negative for abdominal distention, abdominal pain, constipation, diarrhea, nausea and vomiting. Genitourinary: Negative for decreased urine volume, difficulty urinating, dysuria, flank pain and frequency. Musculoskeletal: Negative for arthralgias, back pain, myalgias and neck pain. Skin: Negative for color change, pallor, rash and wound. Neurological: Negative for dizziness, syncope, weakness, light-headedness, numbness and headaches. Psychiatric/Behavioral: Positive for sleep disturbance. Negative for confusion, self-injury and suicidal ideas. The patient is nervous/anxious. Physical Exam ED Triage Vitals Enc Vitals Group BP 04/30/23 0856 (!) 148/99 Pulse (Heart Rate) 04/30/23 0856 98 Resp Rate 04/30/23 0856 18 Temp 04/30/23 0856 97.6 F (36.4 C) Temp source 04/30/23 0856 Oral O2 Sat (%) 04/30/23 0856 96 % Weight -- Height 04/30/23 0857 1.803 m (5' 11 ) Head Circumference -- Peak Flow -- Pain Score -- Pain Loc -- Pain Edu? -- Excl. in GC? -- Vitals: 04/30/23 0857 04/30/23 1000 04/30/23 1100 04/30/23 1228 BP: (!) 150/93 (!) 146/91 (!) 160/100 Pulse: 99 102 100 Resp: 16 18 20 Temp: TempSrc: SpO2: 95% 96% 96% Height: 1.803 m (5' 11 ) Physical Exam Vitals and nursing note reviewed. Constitutional: General: He is not in acute distress. Appearance: Normal appearance. He is not ill-appearing or diaphoretic. Comments: Sitting up in bed alert. No acute distress. Not appear in pain. Calm, pleasant. Conversing normally. Well-appearing. HENT: Head: Normocephalic and atraumatic. Right Ear: External ear normal. Left Ear: External ear normal. Nose: Nose normal. No rhinorrhea. Mouth/Throat: Mouth: Mucous membranes are moist. Eyes: Extraocular Movements: Extraocular movements intact. Conjunctiva/sclera: Conjunctivae normal. Cardiovascular: Rate and Rhythm: Normal rate and regular rhythm. Pulmonary: Effort: Pulmonary effort is normal. No respiratory distress. Abdominal: General: There is no distension. Palpations: Abdomen is soft. Musculoskeletal: General: No deformity or signs of injury. Cervical back: No rigidity. Skin: General: Skin is dry. Coloration: Skin is not jaundiced. Findings: No erythema. Neurological: Mental Status: He is alert and oriented to person, place, and time. Comments: GCS 15 Psychiatric: Mood and Affect: Mood normal. Behavior: Behavior normal. Thought Content: Thought content normal. Judgment: Judgment normal. MDM & ED Course DDx: Includes, but is not limited to substance use disorder, acute stress reaction. Less likely ACS, COPD, pneumothorax, PE, dissection, suicidal ideation, alcohol withdrawal. Testing & Treatments Ordered or Considered (meds, labs, imaging): [x] Medications/infusions. [x] Labs, ordered [] EKG [x] CT, unlikely PE, dissection or other pathology requiring CT [x] Xray [] US MDM Data: -My EKG interpretation (if done): NSR, HR 96, No ST or T wave changes appreciated. -My X-ray interpretation (if done): Lungs clear bilaterally. No obvious consolidations, pulmonary congestion, pneumothorax appreciated. -Decision rules/scores evaluated: heart score = 3 = low risk Labs reviewed (if ordered): Results for orders placed or performed during the hospital encounter of 04/30/23 CBC, EDIF, PLATELET Result Value Ref Range WBC (WHITE BLOOD COUNT) 9.60 4.80 - 10.80 10*3/uL RBC 4.94 4.20 - 5.60 10*6/uL HEMOGLOBIN (HGB) 15.3 14.0 - 18.0 g/dL HEMATOCRIT (HCT) 44.2 42.0 - 54.0 % MEAN CELL VOLUME 89.5 82.0 - 98.0 fL Mean Cell HGB 31.0 25.6 - 32.2 pg MEAN CELL HGB CONCENTRATION 34.6 32.0 - 36.0 g/dL PLATELET COUNT 175 150 - 450 10*3/uL RBC DISTRIBUTION 12.3 11.5 - 14.5 % MEAN PLATELET VOLUME 9.3 (L) 9.4 - 12.4 fL NEUTROPHIL % 71.8 (H) 36.0 - 66.0 % LYMPHOCYTES % 21.8 (L) 24.0 - 44.0 % MONOCYTE % 4.5 (L) 5.0 - 12.0 % EOSINOPHILS 0.3 0.0 - 4.0 % BASOPHIL % 1.1 0.0 - 2.0 % NEUTROPHILS (ABSOLUTE) 6.89 2.00 - 7.50 10*3/uL LYMPHOCYTES, ABSOLUTE 2.09 1.00 - 4.80 10*3/uL MONOCYTES, ABSOLUTE 0.43 0.20 - 1.20 10*3/uL EOSINOPHILS, ABSOLUTE 0.03 0.00 - 0.50 10*3/uL ABSOLUTE BASOPHIL COUNT 0.11 0.00 - 0.20 10*3/uL RBC, NUCLEATED 0.0 % RBC, NUCLEATED, ABSOLUTE 0.00 0.00 - 0.50 BASIC METABOLIC PANEL Result Value Ref Range SODIUM 140 136 - 145 mmol/L POTASSIUM 3.7 3.5 - 5.0 mmol/L CHLORIDE 104 100 - 110 mmol/L CARBON DIOXIDE (CO2) 12.0 (L) 22.0 - 30.0 mm/Hg Glucose 77 70 - 100 mg/dL BUN 13 7 - 22 mg/dL CREATININE SERUM 0.79 (L) 0.80 - 1.50 mg/dL CALCIUM 8.6 8.4 - 10.2 mg/dL ANION GAP 24.5 mmol/L ESTIMATED GFR, NON AMER 108 >60 mL/min/1.73 m2 TROPONIN Result Value Ref Range TROPONIN 0.019 0.012 - 0.120 ng/mL TROPONIN Result Value Ref Range TROPONIN 0.020 0.012 - 0.120 ng/mL MAGNESIUM Result Value Ref Range MAGNESIUM 1.9 1.7 - 2.2 mg/dL Imaging (if ordered): XR CHEST PORTABLE Final Result IMPRESSION: No radiographic finding to suggest acute cardiopulmonary process. Course, treatment & Disposition: ED Course: Medications sodium chloride flush 0.9 % injection 5 mL (has no administration in time range) LORazepam (ATIVAN) injection 1 mg (1 mg Intravenous Given 04/30/23 0934) famotidine (PF) (PEPCID) injection 20 mg (20 mg Intravenous Given 04/30/23932) Ondansetron 4mg/2ml (ZOFRAN) injection 4 mg (4 mg Intravenous Given 04/30/23932) Sodium chloride 0.9% IV solution 1,000 mL (0 mL Intravenous Stopped 04/30/23 1119) ED Course as of 04/30/23 1322 FriApr 30, 2023 131 BP(!): 160/100 Pt states he hasn't taken his BP meds in 2 days. Advised to take. 1317 TROPONIN: 0.020 Stable, normal range, not consistent with ACS. Procedures (if any performed) Discussion with providers (Radiology, Specialists, Medicine): None Pt re-evaluated, condition: [] Resolved [x] Improving [] Unchanged [] Worsening Patient walking around ED while waiting repeat troponin, eager to be discharged home. Remains very well-appearing. Shared decision making (Discussions with pt/family preferences, education, risk/benefit): Pt/family updated with all results. Advised at this time exam & workup in ER is reassuring, feel pt is stable for outpatient follow-up & do not feel further emergent workup or interventions indicated at this time. Advised ED is not meant to be comprehensive care, need to follow up with PCP in 1-2 days for re-evaluation, coordination of outpatient care, possible further testing, treatments, or referrals. Advised to follow up with cardio & [facility] as well. States he completed inpatient alcohol treatment at [facility] in the past. States he was 10 years sober, then 5 years sober. States he has been sober for months leading up to this week, unlikely to be in withdrawal. Advised to return to ED if new or worsening symptoms including increased pain. Pt/family understand and agree. All questions answered to best of my ability. Social determinants of health (living situation, filling Rx, follow up): Pt has ride home, agrees to fill any prescriptions given, states able to follow up with PCP as instructed. Diagnosis: Problem List Items Addressed This Visit None Visit Diagnoses Chest pain, unspecified type - Primary Alcohol use disorder Disposition: [x] Discharge [] Admit [] Transfer This note was dictated using medical voice recognition software. Attempts at proofreading were made, but errors may occasionally still occur. DO Ihsan Beltre DO 04/30/23 0372 Pt arrives by EMS from home with c/o chest pain, shortness of breath and headache. Pt reports that he has had chest discomfort for several days, has a hx of alcohol abuse, last drink was yesterday. documented in this encounter [employer] Phone: 04-30-2023 Emergency department Note Pt IVF on an IV pump, pt not cooperative with keeping his arm straight, education given. [facility] [employer] Phone: 04-30-2023 Physician Emergency department Note Chief Complaint Patient presents with Chest Pain Shortness of Breath Angella Fernandez is a 52 y.o. male Patient presents for shortness of breath, alcohol use disorder. Patient states 1 week ago his gave him paperwork for divorce. States he has history of alcoholism, completed treatment programs in the past. States he had not drank for months however after receiving divorce papers started drinking 1 week ago. States he was drinking 12 shots of [place] per day. Last drink yesterday, states he can not remember what time. States he has not been able to sleep, but has been intermittently sleeping for short periods throughout the day. States he is feeling fatigued, short of breath. This morning tried to go outside to go to doctor's office but began having some tightness in chest. Per EMS reported patient has had similar episodes of chest pain in the past with negative workup due to similar reactions to stressful scenarios. Patient denies any history of cardiac disease. The history is provided by the patient. Discussed with Patient and/or Independent Historians above. Symptoms & severity: See HPI above. Chronic illnesses impacting care: See PMH/Problem List below External documents reviewed (EMR notes/previous encounters/SNF documents/CareEverywhere): Yes PMH: Past Medical History: Diagnosis Date Alcohol withdrawal seizures Bradycardia COVID-19 09/2021 Essential hypertension, benign Migraine Spondylosis, cervical Patient Active Problem List Obesity (BMI 30.0-34.9) Bronchitis Essential hypertension Bradycardia PSH: Past Surgical History: Procedure Laterality Date ORCHIECTOMY LAPAROSCOPIC TONSILLECTOMY Family Hx: Family History Problem Relation Age of Onset Other - Specify Mother pancreatitis Liver Disease Father No known problems Sister No known problems Brother No known problems Brother No known problems Son Allergies: No Known Allergies Social Hx: Social History Socioeconomic History Marital status: Spouse name: Not on file Number of children: Not on file Years of education: Not on file Highest education level: Not on file Occupational History Not on file Tobacco Use Smoking status: Every Day Packs/day: 0.50 Types: Cigarettes Smokeless tobacco: Never Tobacco comments: quit 2013 Vaping Use Vaping Use: Never used Substance and Sexual Activity Alcohol use: Yes Alcohol/week: 3.0 standard drinks of alcohol Types: 3 Shots of liquor per week Comment: Hx of binge drinking/withdrawal/seizures Drug use: Not Currently Types: Marijuana Sexual activity: Not on file Other Topics Concern Not on file Social History Narrative Not on file Social Determinants of Health Financial Resource Strain: Not on file Food Insecurity: Not on file Transportation Needs: Not on file Physical Activity: Not on file Stress: Not on file Social Connections: Not on file Intimate Partner Violence: Not on file Housing Stability: Not on file Medications: Current Outpatient Medications Medication Instructions Albuterol (ProAir HFA) 108 (90 Base) MCG/ACT Aero Soln inhaler 2 puffs, Inhalation, EVERY 6 HOURS NEEDED amLODIPine (NORVASC) 10 mg, Oral, DAILY benzonatate (TESSALON) 200 mg, Oral, 3 TIMES DAILY NEEDED Cyclobenzaprine (FLEXERIL) 5 mg, Oral, DAILY AT BEDTIME Escitalopram (LEXAPRO) 10 mg, Oral, DAILY Gabapentin (NEURONTIN) 300 mg, Oral, Nightly hydrOXYzine HCl (ATARAX) 25 mg, Oral, EVERY 6 HOURS NEEDED predniSONE 20 MG tablet Days 1-3 3 , 4-6 2, 7-9 1 Tetanus, Diphtheria, and Acellular Pertussis Vaccine 5-2-15.5 LF-MCG/0.5 Suspension 0.5 mL, Intramuscular, ONCE (IN CLINIC) traZODone 50 MG tablet TAKE ONE TABLET BY MOUTH EVERY EVENING zoster vaccine live 20603 UNT/0.65ML Recon Susp 0.65 mL, Subcutaneous, ONCE (IN CLINIC) ROS Review of Systems Constitutional: Positive for fatigue. Negative for activity change, appetite change, chills, diaphoresis and fever. HENT: Negative for congestion, rhinorrhea, sinus pressure, sinus pain and sore throat. Eyes: Negative for visual disturbance. Respiratory: Positive for chest tightness and shortness of breath. Negative for cough. Cardiovascular: Negative for chest pain, palpitations and leg swelling. Gastrointestinal: Negative for abdominal distention, abdominal pain, constipation, diarrhea, nausea and vomiting. Genitourinary: Negative for decreased urine volume, difficulty urinating, dysuria, flank pain and frequency. Musculoskeletal: Negative for arthralgias, back pain, myalgias and neck pain. Skin: Negative for color change, pallor, rash and wound. Neurological: Negative for dizziness, syncope, weakness, light-headedness, numbness and headaches. Psychiatric/Behavioral: Positive for sleep disturbance. Negative for confusion, self-injury and suicidal ideas. The patient is nervous/anxious. Physical Exam ED Triage Vitals Enc Vitals Group BP 04/30/23 0856 (!) 148/99 Pulse (Heart Rate) 04/30/23 0856 98 Resp Rate 04/30/23 0856 18 Temp 04/30/23 0856 97.6 F (36.4 C) Temp source 04/30/23 0856 Oral O2 Sat (%) 04/30/23 0856 96 % Weight -- Height 04/30/23 0857 1.803 m (5' 11 ) Head Circumference -- Peak Flow -- Pain Score -- Pain Loc -- Pain Edu? -- Excl. in GC? -- Vitals: 04/30/23 0857 04/30/23 1000 04/30/23 1100 04/30/23 1228 BP: (!) 150/93 (!) 146/91 (!) 160/100 Pulse: 99 102 100 Resp: 16 18 20 Temp: TempSrc: SpO2: 95% 96% 96% Height: 1.803 m (5' 11 ) Physical Exam Vitals and nursing note reviewed. Constitutional: General: He is not in acute distress. Appearance: Normal appearance. He is not ill-appearing or diaphoretic. Comments: Sitting up in bed alert. No acute distress. Not appear in pain. Calm, pleasant. Conversing normally. Well-appearing. HENT: Head: Normocephalic and atraumatic. Right Ear: External ear normal. Left Ear: External ear normal. Nose: Nose normal. No rhinorrhea. Mouth/Throat: Mouth: Mucous membranes are moist. Eyes: Extraocular Movements: Extraocular movements intact. Conjunctiva/sclera: Conjunctivae normal. Cardiovascular: Rate and Rhythm: Normal rate and regular rhythm. Pulmonary: Effort: Pulmonary effort is normal. No respiratory distress. Abdominal: General: There is no distension. Palpations: Abdomen is soft. Musculoskeletal: General: No deformity or signs of injury. Cervical back: No rigidity. Skin: General: Skin is dry. Coloration: Skin is not jaundiced. Findings: No erythema. Neurological: Mental Status: He is alert and oriented to person, place, and time. Comments: GCS 15 Psychiatric: Mood and Affect: Mood normal. Behavior: Behavior normal. Thought Content: Thought content normal. Judgment: Judgment normal. MDM & ED Course DDx: Includes, but is not limited to substance use disorder, acute stress reaction. Less likely ACS, COPD, pneumothorax, PE, dissection, suicidal ideation, alcohol withdrawal. Testing & Treatments Ordered or Considered (meds, labs, imaging): [x] Medications/infusions. [x] Labs, ordered [] EKG [x] CT, unlikely PE, dissection or other pathology requiring CT [x] Xray [] US MDM Data: -My EKG interpretation (if done): NSR, HR 96, No ST or T wave changes appreciated. -My X-ray interpretation (if done): Lungs clear bilaterally. No obvious consolidations, pulmonary congestion, pneumothorax appreciated. -Decision rules/scores evaluated: heart score = 3 = low risk Labs reviewed (if ordered): Results for orders placed or performed during the hospital encounter of 04/30/23 CBC, EDIF, PLATELET Result Value Ref Range WBC (WHITE BLOOD COUNT) 9.60 4.80 - 10.80 10*3/uL RBC 4.94 4.20 - 5.60 10*6/uL HEMOGLOBIN (HGB) 15.3 14.0 - 18.0 g/dL HEMATOCRIT (HCT) 44.2 42.0 - 54.0 % MEAN CELL VOLUME 89.5 82.0 - 98.0 fL Mean Cell HGB 31.0 25.6 - 32.2 pg MEAN CELL HGB CONCENTRATION 34.6 32.0 - 36.0 g/dL PLATELET COUNT 175 150 - 450 10*3/uL RBC DISTRIBUTION 12.3 11.5 - 14.5 % MEAN PLATELET VOLUME 9.3 (L) 9.4 - 12.4 fL NEUTROPHIL % 71.8 (H) 36.0 - 66.0 % LYMPHOCYTES % 21.8 (L) 24.0 - 44.0 % MONOCYTE % 4.5 (L) 5.0 - 12.0 % EOSINOPHILS 0.3 0.0 - 4.0 % BASOPHIL % 1.1 0.0 - 2.0 % NEUTROPHILS (ABSOLUTE) 6.89 2.00 - 7.50 10*3/uL LYMPHOCYTES, ABSOLUTE 2.09 1.00 - 4.80 10*3/uL MONOCYTES, ABSOLUTE 0.43 0.20 - 1.20 10*3/uL EOSINOPHILS, ABSOLUTE 0.03 0.00 - 0.50 10*3/uL ABSOLUTE BASOPHIL COUNT 0.11 0.00 - 0.20 10*3/uL RBC, NUCLEATED 0.0 % RBC, NUCLEATED, ABSOLUTE 0.00 0.00 - 0.50 BASIC METABOLIC PANEL Result Value Ref Range SODIUM 140 136 - 145 mmol/L POTASSIUM 3.7 3.5 - 5.0 mmol/L CHLORIDE 104 100 - 110 mmol/L CARBON DIOXIDE (CO2) 12.0 (L) 22.0 - 30.0 mm/Hg Glucose 77 70 - 100 mg/dL BUN 13 7 - 22 mg/dL CREATININE SERUM 0.79 (L) 0.80 - 1.50 mg/dL CALCIUM 8.6 8.4 - 10.2 mg/dL ANION GAP 24.5 mmol/L ESTIMATED GFR, NON AMER 108 >60 mL/min/1.73 m2 TROPONIN Result Value Ref Range TROPONIN 0.019 0.012 - 0.120 ng/mL TROPONIN Result Value Ref Range TROPONIN 0.020 0.012 - 0.120 ng/mL MAGNESIUM Result Value Ref Range MAGNESIUM 1.9 1.7 - 2.2 mg/dL Imaging (if ordered): XR CHEST PORTABLE Final Result IMPRESSION: No radiographic finding to suggest acute cardiopulmonary process. Course, treatment & Disposition: ED Course: Medications sodium chloride flush 0.9 % injection 5 mL (has no administration in time range) LORazepam (ATIVAN) injection 1 mg (1 mg Intravenous Given 04/30/23 0934) famotidine (PF) (PEPCID) injection 20 mg (20 mg Intravenous Given 04/30/23 0933) Ondansetron 4mg/2ml (ZOFRAN) injection 4 mg (4 mg Intravenous Given 04/30/23 0933) Sodium chloride 0.9% IV solution 1,000 mL (0 mL Intravenous Stopped 04/30/23 1119) ED Course as of 04/30/23 1322 FriApr 30, 2023 1313 BP(!): 160/100 Pt states he hasn't taken his BP meds in 2 days. Advised to take. 1317 TROPONIN: 0.020 Stable, normal range, not consistent with ACS. Procedures (if any performed) Discussion with providers (Radiology, Specialists, Medicine): None Pt re-evaluated, condition: [] Resolved [x] Improving [] Unchanged [] Worsening Patient walking around ED while waiting repeat troponin, eager to be discharged home. Remains very well-appearing. Shared decision making (Discussions with pt/family preferences, education, risk/benefit): Pt/family updated with all results. Advised at this time exam & workup in ER is reassuring, feel pt is stable for outpatient follow-up & do not feel further emergent workup or interventions indicated at this time. Advised ED is not meant to be comprehensive care, need to follow up with PCP in 1-2 days for re-evaluation, coordination of outpatient care, possible further testing, treatments, or referrals. Advised to follow up with cardio & [facility] as well. States he completed inpatient alcohol treatment at [facility] in the past. States he was 10 years sober, then 5 years sober. States he has been sober for months leading up to this week, unlikely to be in withdrawal. Advised to return to ED if new or worsening symptoms including increased pain. Pt/family understand and agree. All questions answered to best of my ability. Social determinants of health (living situation, filling Rx, follow up): Pt has ride home, agrees to fill any prescriptions given, states able to follow up with PCP as instructed. Diagnosis: Problem List Items Addressed This Visit None Visit Diagnoses Chest pain, unspecified type - Primary Alcohol use disorder Disposition: [x] Discharge [] Admit [] Transfer This note was dictated using medical voice recognition software. Attempts at proofreading were made, but errors may occasionally still occur. DO Ihsan Beltre DO 04/30/23 0154 [employer] Phone: 04-30-2023 Emergency department Note Pt arrives by EMS from home with c/o chest pain, shortness of breath and headache. Pt reports that he has had chest discomfort for several days, has a hx of alcohol abuse, last drink was yesterday. 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 Negative for activity change, appetite change, chills, diaphoresis, fever and unexpected weight change. Respiratory: Positive for cough, shortness of breath and wheezing. Cardiovascular: Negative for chest pain, palpitations and leg swelling. Gastrointestinal: Negative for diarrhea, nausea and vomiting. Genitourinary: Negative for difficulty urinating. Musculoskeletal: Positive for arthralgias. Neurological: Negative for weakness and numbness. Psychiatric/Behavioral: Positive for sleep disturbance. Negative for dysphoric mood and suicidal ideas. The patient is not nervous/anxious. Vitals: Blood pressure 118/80, pulse 86, resp. rate 12, height 1.803 m (5' 11 ), weight 93.7 kg (206 lb 8 oz), SpO2 97 %. Physical Exam Vitals reviewed. Cardiovascular: Rate and Rhythm: Normal rate and regular rhythm. Pulses: Normal pulses. Heart sounds: Normal heart sounds. Pulmonary: Effort: Pulmonary effort is normal. Breath sounds: Normal breath sounds. Abdominal: General: Bowel sounds are normal. Tenderness: There is no abdominal tenderness. Musculoskeletal: General: Tenderness present. Right lower leg: No edema. Left lower leg: No edema. Neurological: Mental Status: He is alert. Sensory: No sensory deficit. Motor: No weakness. Deep Tendon Reflexes: Reflexes normal. Psychiatric: Mood and Affect: Mood normal. Neurological Exam Mental Status Alert. oa ct (-) bilateral knee patellar laxity slide in groove clicks --poor tone quad Poor bulk - knee otherwise (-) for collateral ligament laxity or meniscal signs Assessment and Plan bp stable Insomnia -- to sleep consult Knee pain --anterior - to PT documented in this encounter [employer] Phone: 10-02-2022 History of Presen t illness Narrative History of Present Illness Chronic problem mgt bp -- good recent - he did not complete labs 2020 --postpones due to bronchitis - anxiety panic increasing voer last 2 weeks -- cough yellow sputum -- sinus drainage over 1 week - tobacco (+) -hx of bronchitis Panic 1-2 times a day has had to get out of car to breath and relax -- has drank shots of alcohol to calm down -- discussed Prior hx of treatment PHQ 9--2 ZITA 7--6 cough to gag sputum--cough light headed Review of Systems Constitutional: Positive for diaphoresis and fatigue. Negative for activity change, appetite change, chills, fever and unexpected weight change. HENT: Positive for congestion and postnasal drip. Respiratory: Positive for cough and chest tightness. Negative for shortness of breath. Cardiovascular: Negative for chest pain, palpitations and leg swelling. Gastrointestinal: Positive for nausea. Negative for abdominal pain, diarrhea and vomiting. Genitourinary: Negative for difficulty urinating. Neurological: Positive for light-headedness. Negative for weakness and numbness. Psychiatric/Behavioral: Positive for sleep disturbance. Negative for dysphoric mood and suicidal ideas. The patient is nervous/anxious. Vitals: Blood pressure 130/80, pulse 97, resp. rate 12, height 1.803 m (5' 11 ), weight 97.1 kg (214 lb), SpO2 97 %. Physical Exam Vitals reviewed. HENT: Nose: Nose normal. Mouth/Throat: Mouth: Mucous membranes are moist. Pharynx: Oropharynx is clear. No posterior oropharyngeal erythema. Cardiovascular: Rate and Rhythm: Normal rate and regular rhythm. Pulses: Normal pulses. Heart sounds: Normal heart sounds. Pulmonary: Effort: Pulmonary effort is normal. Breath sounds: Normal breath sounds. No wheezing or rhonchi. Chest: Chest wall: Tenderness present. Abdominal: General: Bowel sounds are normal. Palpations: Abdomen is soft. Tenderness: There is no abdominal tenderness. Musculoskeletal: Right lower leg: No edema. Left lower leg: No edema. Lymphadenopathy: Cervical: No cervical adenopathy. Neurological: Mental Status: He is alert. Neurological Exam Mental Status Alert. PHQ 9--2 ZITA 7--6 Assessment and Plan bp stable - continue Bronchitis -- antibiotic inhaler and steroid Anxiety panic ssri and hydroxyzine -as needed Recheck 2 -4 weeks Postpone all care gaps till feels better Discussed alcohol and tobacco documented in this encounter [employer] Phone: 10-25-2021 History of Presen t illness Narrative History of Present Illness Chronic problem mgt hypertension -- muscle tension headache -- restless leg -- past trials trazadone doxepin mirapex tizandine --shift changes day to day - neck pain worse -- has seen PT --has HEP Recent covid infection -- discussed booster to [employer] --pfizer or moderna shingrix today -- postpone flu --possibly later Still some residual cough and congestion -- had fatigue -- weight gain 10 # -- active otherwise Review of Systems Constitutional: Positive for fatigue and unexpected weight change. Negative for activity change, appetite change, chills, diaphoresis and fever. Respiratory: Positive for cough. Negative for shortness of breath and wheezing. Cardiovascular: Negative for chest pain and palpitations. Gastrointestinal: Negative for abdominal pain, blood in stool, constipation and diarrhea. Genitourinary: Negative for difficulty urinating. Musculoskeletal: Positive for myalgias. Neurological: Positive for headaches. Negative for weakness and numbness. Psychiatric/Behavioral: Positive for sleep disturbance. Negative for dysphoric mood. The patient is not nervous/anxious. Vitals: Height 1.753 m (5' 9 ), weight 110.7 kg (244 lb 2 oz). Physical Exam Vitals reviewed. Constitutional: Appearance: He is obese. Cardiovascular: Rate and Rhythm: Normal rate and regular rhythm. Pulses: Normal pulses. Heart sounds: Normal heart sounds. Pulmonary: Effort: Pulmonary effort is normal. Breath sounds: Normal breath sounds. Abdominal: General: Bowel sounds are normal. Palpations: Abdomen is soft. Tenderness: There is no abdominal tenderness. Musculoskeletal: Right lower leg: No edema. Left lower leg: No edema. Neurological: Mental Status: He is alert. Sensory: No sensory deficit. Motor: No weakness. Deep Tendon Reflexes: Reflexes normal. Psychiatric: Mood and Affect: Mood normal. Neurological Exam Mental Status Alert. Assessment and Plan Exam and bp stable -- zoster vaccine rx for muscle spasms pain Recheck 6 months documented in this encounter [facility] note Diagnosis Essential hypertension, benign- Primary Need for viral immunization Need for prophylactic vaccination and inoculation against other viral diseases Muscle tension headache Tension headache Restless leg Restless legs syndrome (RLS) [facility] Diagnosis Acute alcoholic intoxication with complication (HCC)- Primary documented in this encounter [facility] Work Phone: evaluation note* Diagnosis Essential hypertension, benign- Primary Bronchitis, not specified as acute or chronic Panic anxiety syndrome Panic disorder without agoraphobia documented in this encounter [facility] [employer] Work Phone: evaluation note* Diagnosis Essential hypertension, benign- Primary Restless leg Restless legs syndrome (RLS) Primary insomnia Persistent disorder of initiating or maintaining sleep Special screening for malignant neoplasm of prostate Bilateral anterior knee pain Pain in joint, lower leg documented in this encounter [facility] [employer] Phone: evaluation note* Diagnosis Chest pain, unspecified type- Primary Alcohol use disorder documented in this encounter [facility] [employer] Work Phone: evaluation note* Diagnosis Essential hypertension, benign- Primary Neuralgia of left upper extremity Episodic tension-type headache, not intractable Episodic tension type headache documented in this encounter [facility] [employer] Phone: evaluation note* Diagnosis Alcohol intoxication in active alcoholic- Primary Acute alcoholic intoxication in alcoholism, continuous Chest pain, unspecified type Alcohol intoxication in active alcoholic without complication documented in this encounter [employer] Phone: Evaluation note* Diagnosis Hip pain- Primary Pain in joint, pelvic region and thigh Hypertensive urgency Unspecified essential hypertension Alcohol withdrawal syndrome with complication Osteoarthritis of right hip, unspecified osteoarthritis type documented in this encounter [employer] Phone: evaluation note* Diagnosis Hip pain- Primary Pain in joint, pelvic region and thigh Hypertensive urgency Unspecified essential hypertension Alcohol withdrawal syndrome with complication Osteoarthritis of right hip, unspecified osteoarthritis type documented in this encounter [employer] Phone: evaluation note* Diagnosis Alcohol abuse with withdrawal- Primary Chronic right hip pain Pain in joint, pelvic region and thigh Alcohol withdrawal syndrome with complication Pain of right hip documented in this encounter [facility] [employer] Phone: Evaluation note* Diagnosis Alcohol abuse with withdrawal- Primary Chronic right hip pain Pain in joint, pelvic region and thigh Alcohol withdrawal syndrome with complication Pain of right hip documented in this encounter [facility] [employer] Phone: Evaluation note* Diagnosis Avascular necrosis of right femoral head- Primary Aseptic necrosis of head and neck of femur Primary osteoarthritis of right hip Primary localized osteoarthrosis, pelvic region and thigh Tobacco abuse Tobacco use disorder documented in this encounter [facility] Phone: Hospital Discharge instructions* Attachments The following attachments cannot be sent through Care Everywhere. * Alcohol Intoxication: Acute (Marshallese) * Alcohol Detoxification and Withdrawal ([place]ese) [facility]charge [facility]* Attachments The following attachments cannot be sent through Care Everywhere. * Chest Pain (M[place]ese) * Alcohol Use Disorder: General Info (M[place]ese) [facility]charge [facility]* Attachments The following attachments cannot be sent through Care Everywhere. * Pain and Pain Control ([facility]) (M[place]ese) * 9 Ways to Cut Back on Drinking: Quick List (Marshallese) documented in this [facility] Phone: Reason for referral (narrative)* Consultation (Routine) - New Request Specialty Diagnoses / Procedures Referred By Contac t Referred To Contact Sleep Medicine Diagnoses Primary insomnia Apolinar Cameron II, DO [address] [id number] Referral ID Status Reason Start Date Expiration Date V isits Requested Visits Authorized [id number] New Request 01/31/2023 02/25/2024 1 1 * Adjunctive Therapy (Routine) - New Request Specialty Diagnoses / Procedures Referred By Contac t Referred To Contact Physical Therapy Diagnoses Bilateral anterior knee pain Apolinar Cameron II, DO [address] [facility] [address] [place] [address] Referral ID Status Reason Start Date Expiration Date V isits Requested Visits Authorized [id number] New Request 01/31/2023 02/25/2024 1 1 [facility] [employer] Phone: reason for referral (narrative)* Unlisted Procedure Code (Routine) - New Request Specialty Diagnoses / Procedures Referred By Contac t Referred To Contact Procedures NO MECHANICAL DVT PROPHYLAXIS Elvis Colbert, [employer] [address] [place] [address] Referral ID Status Reason Start Date Expiration Date V isits Requested Visits Authorized [id number] New Request 10/23/2023 11/16/2024 1 1 Electronically signed by Elvis Colbert [employer] at 10/23/2023 7:39 PM EST * Radiology (Emergency) - New Request Specialty Diagnoses / Procedures Referred By Contac t Referred To Contact Procedures ECG Varghese Mike PA [address] [place] [address] [place] [address] Referral ID Status Reason Start Date Expiration Date V isits Requested Visits Authorized [id number] New Request 10/23/2023 11/16/2024 1 1 [facility] Phone: reason for referral (narrative)* Consultation (Routine) - New Request Specialty Diagnoses / Procedures Referred By Contac t Referred To Contact Orthopaedics Diagnoses Osteoarthritis of right hip, unspecified osteoarthritis type Amy Odom DO [address] [place] [address] Referral ID Status Reason Start Date Expiration Date V isits Requested Visits Authorized [id number] New Request 12/05/2023 12/29/2024 1 1 * (Routine) Specialty Diagnoses / Procedures Referred By Contac t Referred To Contact [facility] Referral ID Status Reason Start Date Expiration Date Visits Re quested Visits Authorized * (Routine) Specialty Diagnoses / Procedures Referred By Contac t Referred To Contact [facility] Referral ID Status Reason Start Date Expiration Date Visits Re quested Visits Authorized * Unlisted Procedure Code (Routine) - New Request Specialty Diagnoses / Procedures Referred By Contac t Referred To Contact Procedures NO MECHANICAL DVT PROPHYLAXIS Leesa Dee PA [address] [place] [address] Referral ID Status Reason Start Date Expiration Date V isits Requested Visits Authorized [id number] New Request 12/04/2023 12/28/2024 1 1 * Radiology (Emergency) - New Request Specialty Diagnoses / Procedures Referred By Contac t Referred To Contact Procedures ECG Jeanie Churchill MD, PhD [address] [place] [address] Referral ID Status Reason Start Date Expiration Date V isits Requested Visits Authorized [id number] New Request 12/04/2023 12/28/2024 1 1 [facility] Phone: reason for referral (narrative)* Consultation (Routine) - New Request Specialty Diagnoses / Procedures Referred By Contac t Referred To Contact Multispecialty Diagnoses Avascular necrosis of right femoral head Primary osteoarthritis of right hip Mariia Govea MD [address] [place] [id number] Referral ID Status Reason Start Date Expiration Date V isits Requested Visits Authorized [id number] New Request 12/11/2023 01/04/2025 1 1 [facility] [employer] Phone: Summary Purpose Family History No Family History Records FoundNo Family History Records FoundNo Family History Records FoundNo Family History Records Found Advance Directives No Advanced Directives Records FoundDocuments on File Type Date Recorded 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 Advance Directives and Living Will Power of Cooler Tender Documents on File Type Date Recorded 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 ACP-Advance Directive ACP-Power of Cooler Tender Latest Code Status on File Code Status Date Activated Date Inactivated Comments Full Code 10/23/2023 7:40 PM Latest Code Status on File Code Status Date Activated Date Inactivated Comments Full Code 12/04/2023 5:57 PM Code Status History Code Status Date Activated Date Inactivated Comments Full Code 10/23/2023 7:40 PM 12/04/2023 5:57 PM Latest Code Status on File Code Status Date Activated Date Inactivated Comments Full Code 12/06/2023 7:34 AM Code Status History Code Status Date Activated Date Inactivated Comments Full Code 12/04/2023 5:57 PM 12/06/2023 7:34 AM Full Code 10/23/2023 7:40 PM 12/04/2023 5:57 PM Discharge Instructions * Attachments The following attachments cannot be sent through Care Everywhere. * Alcohol Intoxication: Acute (Marshallese) * Dizziness (M[place]ese) documented in this encounter Assessments Diagnosis Acute alcoholic intoxication with complication (HCC)- Primary Dizziness Dizziness and giddiness Reason for Referral Specialty Diagnoses / Procedures Referred By Contac t Referred To Contact Procedures ECG Ihsan Pink, DO [address] [place] [address] Referral ID Status Reason Start Date Expiration Date V isits Requested Visits Authorized [id number] New Request 04/30/2023 05/24/2024 1 1 Specialty Diagnoses / Procedures Referred By Contac t Referred To Contact Diagnoses Neuralgia of left upper extremity Apolinar Cameron II, DO [address] [address] Apolinar Cameron II, DO [address] [phone] Referral ID Status Reason Start Date Expiration Date V isits Requested Visits Authorized [id number] New Request 08/29/2023 09/22/2024 1 1 Specialty Diagnoses / Procedures Referred By Contac t Referred To Contact Procedures ECG Hector Edwards, DO [address] [place] [address] Referral ID Status Reason Start Date Expiration Date V isits Requested Visits Authorized [id number] New Request 12/06/2023 12/30/2024 1 1 Referral ID Status Reason Start Date Expiration Date V isits Requested Visits Authorized [id number] New Request 12/06/2023 12/30/2024 1 1 Additional Source Comments (unrecognized sect ion and content) No Status Records FoundNo Status Records FoundNo Status Records FoundNo Status Records Found INFORMATION SOURCE (unrecogn ized section and content) DATE CREATED AUTHOR 05/01/2020 [facility] DATE CREATED AUTHOR AUTHOR'S ORGANIZ ATION 03/08/2022 [facility] DATE CREATED AUTHOR AUTHOR'S ORGANIZ ATION 11/12/2023 [facility] DATE CREATED AUTHOR AUTHOR'S ORGANIZ ATION 12/12/2023 [facility] [place] Reason for Visit (unrecogniz ed section and content) Reason Comments Alcohol Problem Reason Comments Hypertension Headache Restless Legs Reason Comments Alcohol Problem Generalized Body Aches Chest Pain Reason Comments Hypertension Cough Anxiety Reason Comments Hypertension Reason Comments Chest Pain Shortness of Breath Reason Comments Hypertension Headache Numbness Reason Comments Rib Pain Hip Pain Specialty Diagnoses / Procedures Referred By Contac t Referred To Contact Diagnoses Alcohol intoxication in active alcoholic Hector Edwards, DO [address] [place] [address] [address] Phone: Referral ID Status Reason Start Date Expiration Date Visits Re quested Visits Authorized [id number] 1 1 Reason Comments Hip Pain Sweats Specialty Diagnoses / Procedures Referred By Contac t Referred To Contact Diagnoses Hip pain Ihsan Pink DO [address] [place] [address] [address] Phone: [phone] Referral ID Status Reason Start Date Expiration Date Visits Re quested Visits Authorized [id number] 1 1 Reason Comments Hip Pain Reason Comments Pain Patient here today f or pain in right hip which started about 2 months ago. He states he got an injection lateral hip at the [facility] more than two weeks ago and the pain started to get worse about a week later. He states was ordered therapy but has not started yet as he was told to come here first.. The pain is in the lateral hip, groin and and upper butt cheek/lower back. Ambulating with a cane. States does not have anything for pain and occasionally takes Tylenol which doesn't help. Specialty Diagnoses / Procedures Referred By Alex dean Referred To Contact Orthopaedics Diagnoses Osteoarthritis of right hip, unspecified osteoarthritis type Amy Odom, DO [address] [place] [address] Referral ID Status Reason Start Date Expiration Date V isits Requested Visits Authorized [id number] New Request 12/05/2023 12/29/2024 1 1 Care Teams (unrecognized sec tion and content) Zone Supervisor Firearms Relationship Specialty Start Date End Date Apolinar Cameron II, DO [address] [facility] [address] [place] [id number] PCP - General Family Medicine 04/09/16 Glenny Kent MD [address] [place] [address] Neurologist Neurology 04/09/16 Zone Supervisor Firearms Relationship Specialty Start Date End Date Apolinar Cameron II, MD [address] [facility] Demario [address] [place] [address] PCP - General Real Estate Sales Agent 11/27/19 Zone Supervisor Firearms Relationship Specialty Start Date End Date Apolinar Cameron II, DO [address] [facility] [address] [place] [address] PCP - General Family Medicine 04/09/16 Glenny Kent MD [address] [place] [address] Neurologist Neurology 04/09/16 Zone Supervisor Firearms Relationship Specialty Start Date End Date Apolinar Cameron II, [address] [place] [address] PCP - General Family Medicine 04/09/16 Glenny Kent MD [address] [place] [address] Neurologist Neurology 04/09/16 Zone Supervisor Firearms Relationship Specialty Start Date End Date Apolinar Cameron II, DO [address] [place] [address] PCP - General Family Medicine 04/09/16 Glenny Kent MD [address] [place] [id number] Neurologist Neurology 04/09/16 Zone Supervisor Firearms Relationship Specialty Start Date End Date Apolinar Cameron II, DO [address] [place] [address] PCP - General Family Medicine 04/09/16 Glenny Kent MD [address] [place] [id number] Neurologist Neurology 04/09/16 Zone Supervisor Firearms Relationship Specialty Start Date End Date Apolinar Cameron II, [address] [place] [address] PCP - General Family Medicine 04/09/16 Glenny Kent MD [address] [place] [address] Neurologist Neurology 04/09/16 Zone Supervisor Firearms Relationship Specialty Start Date End Date Apolinar Cameron II, DO [address] [place] [address] PCP - General Family Medicine 04/09/16 Glenny Kent MD [address] [place] [address] Neurologist Neurology 04/09/16 Zone Supervisor Firearms Relationship Specialty Start Date End Date Apolinar Cameron II, DO [address] [place] [id number] PCP - General Family Medicine 04/09/16 Glenny Kent MD [address] [place] [id number] Neurologist Neurology 04/09/16 Zone Supervisor Firearms Relationship Specialty Start Date End Date Apolinar Cameron II, DO [address] [place] [address] PCP - General Family Medicine 04/09/16 Glenny Kent MD [address] [place] [address] Neurologist Neurology 04/09/16 Zone Supervisor Firearms Relationship Specialty Start Date End Date Apolinar Cameron II, [address] [place] [address] PCP - General Family Medicine 04/09/16 Glenny Kent MD [address] [place] [address] Neurologist Neurology 04/09/16 Zone Supervisor Firearms Relationship Specialty Start Date End Date Apolinar Cameron II, [address] [facility] [address] [place] [address] PCP - General Family Medicine 04/09/16 Glenny Kent MD [address] [place] [address] Neurologist Neurology 04/09/16 Scheduled Active and Recently Administ ered Medications (unrecognized section and content) Medication Order 03/05/2022 03/06/2022 03/07/2022 0.9 % sodium chloride bolus (COMPLETED) 2,000 mL, IntraVENous, at 2,000 mL/hr, Administer over 1 Hours, ONCE, On Fri03/06/22 at 2230, For 1 dose 2215 (New Bag - Provider: Chelsie Bonds RN)2354 (Stopped - Provider: Steve Read RN) diazePAM (VALIUM) tablet 2 mg (COMPLETED) 2 mg, Oral, ONCE, 1 dose, On Vicenta 03/07/22 at 0900 0908 (Given - Provid er: Enedina Michael RN (Casie)) folic acid (FOLVITE) tablet 1 mg (COMPLETED) 1 mg, Oral, ONCE, 1 dose, On Fri03/06/22 at 2230 2306 (Given - Provider: Chelsie Bonds, SUNNY) thiamine tablet 100 mg (COMPLETED) 100 mg, Oral, ONCE, 1 dose, On Fri03/06/22 at 2230 2306 (Given - Provider: Chelsie Bonds, SUNNY) PRN Medication Order 03/05/2022 03/06/2022 03/07/2022 guaiFENesin-dextromethorphan (ROBITUSSIN DM) 100-10 MG/5ML syrup 5 mL 5 mL, Oral, EVERY 4 HOURS PRN, Starting on Vicenta 03/07/22 at 0754, Until Discontinued, Cough 0802 (Given - Provid er: Enedina Michael RN (Casie)) Scheduled Medication Order 04/28/2023 04/29/2023 04/30/2023 famotidine (PF) (PEPCID) injection 20 mg (COMPLETED) 20 mg, Intravenous, ONCE, 1 dose, On Fri04/30/23 at 0915, Administer by slow IV push at a rate not to exceed 10mg/min 0933 (Given - Provid er: Trupti Gamino RN) LORazepam (ATIVAN) injection 1 mg (COMPLETED) 1 mg, Intravenous, ONCE, 1 dose, On Fri04/30/23 at 0945, Extravasation Risk 0934 (Given - Provid er: Trupti Gamino RN) Ondansetron 4mg/2ml (ZOFRAN) injection 4 mg (COMPLETED) 4 mg, Intravenous, ONCE, 1 dose, On Fri04/30/23 at 0945 0933 (Given - Provid er: Trupti Gamino RN) Sodium chloride 0.9% IV solution 1,000 mL (COMPLETED) 1,000 mL, Intravenous, ONCE, 1 dose, On Fri04/30/23 at 0945 0934 ($$New Bag$$ - Provider: rTupti Gamino RN)1119 (Stopped - Provider: Trupti Gamino RN) PRN Medication Order 04/28/2023 04/29/2023 04/30/2023 sodium chloride flush 0.9 % injection 5 mL 5 mL, Intravenous, ONCE NEEDED, 1 dose, Starting on Fri04/30/23 at 0912, Until Fri04/30/23 at 1535, Flush Scheduled Medication Order 10/22/2023 10/23/2023 10/24/2023 Acetaminophen (TYLENOL) tablet 975 mg 975 mg, Oral, EVERY 6 HOURS, First dose on Vicenta 10/23/23 at 1945, Until Discontinued, Maximum dose of acetaminophen is 4000 mg from all sources in 24 hours. 2002 (Given - Provider: Dustin Lux RN) 21 (Not Given - Provider: Dustin Lux RN - Reason: Patient sleeping)0604 (Given - Provider: Dustin Lux RN)1240 (Given - Provider: Ceferino Savage, SUNNY)1828 (Given - Provider: Ceferino Savage, SUNNY) amLODIPine (NORVASC) tablet 10 mg 10 mg, Oral, DAILY, First dose on Fri10/24/23 at 0900, Until Discontinued 850 (Given - Provid er: Ceferino Savage RN) Atorvastatin (LIPITOR) tablet 40 mg 40 mg, Oral, DAILY, First dose on Fri10/24/23 at 0900, Until Discontinued 850 (Given - Provid er: Ceferino Savage RN) Folic acid (FOLVITE) tablet 1 mg 1 mg, Oral, DAILY, First dose on Fri10/24/23 at 0900, Until Discontinued 850 (Given - Provid er: Ceferino Savage RN) Iopamidol (370 mg/mL) (ISOVUE) 76 % 75 mL (COMPLETED) 75 mL, Intravenous, ONCE, 1 dose, On Vicenta 10/23/23 at 1245, Extravasation Risk, CT Procedure 1216 (Given - Radiology - Provider: Isabela Gates) Ketorolac (TORADOL) injection 15 mg (COMPLETED) 15 mg, Intravenous, ONCE, 1 dose, On Fri10/23/23 at 1500 1442 (Given - Provider: Tere Jett RN) lidocaine (LIDODERM) 5 % patch 2 patch 2 patch, Transdermal, Administer over 12 Hours, EVERY 24 HOURS, First dose on Fri10/23/23 at 1945, Until Discontinued, Apply to R chest wall and R hip . Remove patch after duration of 12 hours. An action of Patch Applied within the MAR will schedule the MAR patch removal 12 hours later. 2003 (Patch Applied - Provider: Dustin Lux RN - Comment: ribs/right) 0848 (Patch Removed - Provider: Ceferino Savage RN)2003 (Patch Applied - Provider: Rain Arredondo RN)2100 (Due: Patch Removed - Provider: System Discharge - Comment: Time automatically adjusted from order being discontinued) LORazepam (ATIVAN) injection 1-4 mg(Linked Group 1) 1-4 mg, Intravenous, SEE ADMIN INSTRUCTIONS, Starting on Vicenta 10/23/23 at 1939, Until Fri10/24/23 at 2338, Titrate to CIWA score: Less than 8 = no pharmacological intervention - reassess in 4 hours 8 - 10 = 1 mg; reassess in 4 hours 11-14 = 2 mg; reassess in 2 hours 15 - 25 = 3 mg reassess in 1 hour and arrange to transfer patient to ICU Greater than 25 = 4 mg and call physician. Reassess in 15 minutes and arrange to transfer patient to ICU. Extravasation Risk 2003 (See Alternative - Provider: Dustin Lux RN) LORazepam (ATIVAN) tablet 1 mg 1 mg, Oral, EVERY 4 HOURS, 4 doses, First dose on Vicenta 10/23/23 at 1800, Last dose on Fri10/24/23 at 0600 1734 (Given - Provider: Tere Jett RN)2232 (Given - Provider: Dustin Lux RN) 0230 (Not Given - Provider: Dustin Lux RN - Reason: Patient sleeping)0604 (Given - Provider: Dustin Lux RN) LORazepam (ATIVAN) tablet 1 mg (COMPLETED)(Linked Group 2) 1 mg, Oral, EVERY 8 HOURS, 1 dose, First dose (after last modification) on Fri10/24/23 at 1222 1246 (Given - Provid er: Ceferino Savage RN - Comment: Linked order to end at 1300.) LORazepam (ATIVAN) tablet 1 mg (COMPLETED)(Linked Group 2) 1 mg, Oral, EVERY 8 HOURS, 1 dose, First dose (after last modification) on Fri10/24/23 at 2000 2004 (Given - Provid er: Rain Arredondo RN) LORazepam (ATIVAN) tablet 1-4 mg(Linked Group 1) 1-4 mg, Oral, SEE ADMIN INSTRUCTIONS, Starting on Vicenta 10/23/23 at 1939, Until Fri10/24/23 at 2338, Titrate to CIWA score: Less than 8 = no pharmacological intervention - reassess in 4 hours 8 - 10 = 1 mg; reassess in 4 hours 11-14 = 2 mg; reassess in 2 hours 15 - 25 = 3 mg reassess in 1 hour and arrange to transfer patient to ICU Greater than 25 = 4 mg and call physician. Reassess in 15 minutes and arrange to transfer patient to ICU. 2003 (Given - Provider: Dustin Lux RN - Comment: ciwa 12) Morphine (PF) injection 4 mg (COMPLETED) 4 mg, Intravenous, ONCE, 1 dose, On Vicenta 10/23/23 at 1045 1048 (Given - Provider: Tere Jett RN) Ondansetron 4mg/2ml (ZOFRAN) injection 4 mg (COMPLETED) 4 mg, Intravenous, ONCE, 1 dose, On Fri10/23/23 at 1615 1550 (Given - Provider: Tere Jett, SUNNY) sodium chloride flush 0.9 % injection 20 mL (COMPLETED) 20 mL, Intravenous, ONCE, 1 dose, On Fri10/23/23 at 1245, CT Procedure 1216 (Given - Provider: Isabela Gates) Thera-M tablet 1 tablet 1 tablet, Oral, DAILY, First dose on Fri10/24/23 at 0900, Until Discontinued 0851 (Given - Provid er: Ceferino Savage RN) thiamine (B-1) 100 mg in Sodium chloride 0.9% 51 mL (total volume) IVPB 100 mg, Intravenous, at 102 mL/hr, Administer over 30 Minutes, DAILY, 3 doses, First dose on Fri10/24/23 at 0900, Last dose on Fri10/26/23 at 0900 0928 ($$New Bag$$ - Provider: Ceferino Savage RN)0956 (Stopped - Provider: Travis Mccoy RN) thiamine mononitrate tablet 100 mg 100 mg, Oral, DAILY, First dose on Fri10/24/23 at 0900, Until Discontinued 0851 (Given - Provid er: Ceferino Savage RN) PRN Medication Order 10/22/2023 10/23/2023 10/24/2023 Acetaminophen (TYLENOL) suppository 650 mg(Linked Group 3) 650 mg, Rectal, EVERY 4 HOURS NEEDED, Starting on Fri10/23/23 at 1939, Until Fri10/24/23 at 2338, Oral temp > 100.4 F, Headaches, If unable to tolerate oral acetaminophen. Acetaminophen (TYLENOL) tablet 650 mg(Linked Group 3) 650 mg, Oral, EVERY 4 HOURS NEEDED, Starting on Fri10/23/23 at 1939, Until Fri10/24/23 at 2338, Oral temp > 100.4 F, Headaches, Maximum dose of acetaminophen is 4000 mg from all sources in 24 hours. Alum & Mag Hydroxide-Simeth (MYLANTA) 200-200-20 MG/5ML suspension 30 mL 30 mL, Oral, EVERY 6 HOURS NEEDED, Starting on Fri10/23/23 at 1939, Until 1/26/24 at 2338, Other, Indigestion, if SCr Less than or equal to 1.4, SHAKE WELL aluminum hydroxide (ALTERNGEL) oral suspension 640 mg 640 mg, Oral, EVERY 6 HOURS NEEDED, Starting on Vicenta 10/23/23 at 1939, Until Fri10/24/23 at 2338, Indigestion, if SCr greater than 1.4., SHAKE WELL Ketorolac (TORADOL) injection 15 mg 15 mg, Intravenous, EVERY 6 HOURS NEEDED, Starting on Vicenta 10/23/23 at 2122, Until Fri10/24/23 at 2338, Moderate Pain, Severe Pain 2231 (Given - Provider: Dustin Lux RN) 421 (Given - Provider: Dustin Lux, RN)113 (Given - Provider: Ceferino Savage, RN) LORazepam (ATIVAN) injection 2 mg 2 mg, Intravenous, EVERY 1 HOUR NEEDED, Starting on Vicenta 10/23/23 at 1939, Until Fri10/24/23 at 2338, Other, For Seizure, Extravasation Risk Ondansetron (ZOFRAN-ODT) disintegrating tablet 4 mg(Linked Group 4) 4 mg, Oral, EVERY 6 HOURS NEEDED, Starting on Vicenta 10/23/23 at 1939, Until Fri10/24/23 at 2338, Nausea / Vomiting 2230 (See Alternative - Provider: Dustin Lux RN) 421 (See Alternative - Provider: Dustin Lux RN)113 (Given - Provider: Ceferino Savage, RN) Ondansetron 4mg/2ml (ZOFRAN) injection 4 mg(Linked Group 4) 4 mg, Intravenous, EVERY 6 HOURS NEEDED, Starting on Vicenta 10/23/23 at 1939, Until Fri10/24/23 at 2338, Nausea / Vomiting, If patient unable to tolerate oral ondansetron. 2230 (Given - Provider: Dustin Lux RN) 421 (Given - Provider: Dustin Lux, RN)113 (See Alternative - Provider: Ceferino Savage, RN) sodium chloride flush 0.9 % injection 5 mL 5 mL, Intravenous, NEEDED, Starting on Vicenta 10/23/23 at 1939, Until Fri10/24/23 at 2338, Flush, Administer before and after IV medications. Linked Groups Order Group 1: LORazepam (ATIVAN) injection 1-4 mgJump to med 1-4 mg, Intravenous, SEE ADMIN INSTRUCTIONS, Starting on Vicenta 10/23/23 at 1939, Until Fri10/24/23 at 2338
Titrate to CIWA score: Less than 8 = no pharmacological intervention - reassess in 4 hours 8 - 10 = 1 mg; reassess in 4 hours 11-14 = 2 mg; reassess in 2 hours 15 - 25 = 3 mg reassess in 1 hour and arrange to transfer patient to ICU Greater than 25 = 4 mg and call physician. Reassess in 15 minutes and arrange to transfer patient to ICU. Extravasation Risk
Or LORazepam (ATIVAN) tablet 1-4 mgJump to med 1-4 mg, Oral, SEE ADMIN INSTRUCTIONS, Starting on Vicenta 10/23/23 at 1939, Until Fri10/24/23 at 2338
Titrate to CIWA score: Less than 8 = no pharmacological intervention - reassess in 4 hours 8 - 10 = 1 mg; reassess in 4 hours 11-14 = 2 mg; reassess in 2 hours 15 - 25 = 3 mg reassess in 1 hour and arrange to transfer patient to ICU Greater than 25 = 4 mg and call physician. Reassess in 15 minutes and arrange to transfer patient to ICU.
Group 2: LORazepam (ATIVAN) tablet 1 mg (COMPLETED)Jump to med 1 mg, Oral, EVERY 8 HOURS, 1 dose, First dose (after last modification) on Fri10/24/23 at 1222 Followed by LORazepam (ATIVAN) tablet 1 mg (COMPLETED)Jump to med 1 mg, Oral, EVERY 8 HOURS, 1 dose, First dose (after last modification) on Fri10/24/23 at 2000 Group 3: Acetaminophen (TYLENOL) tablet 650 mgJump to med 650 mg, Oral, EVERY 4 HOURS NEEDED, Starting on Vicenta 10/23/23 at 1939, Until Fri10/24/23 at 2338, Oral temp > 100.4 F, Headaches
Maximum dose of acetaminophen is 4000 mg from all sources in 24 hours.
Or Acetaminophen (TYLENOL) suppository 650 mgJump to med 650 mg, Rectal, EVERY 4 HOURS NEEDED, Starting on Vicenta 10/23/23 at 1939, Until Fri10/24/23 at 2338, Oral temp > 100.4 F, Headaches
If unable to tolerate oral acetaminophen.
Group 4: Ondansetron 4mg/2ml (ZOFRAN) injection 4 mgJump to med 4 mg, Intravenous, EVERY 6 HOURS NEEDED, Starting on Vicenta 10/23/23 at 1939, Until Fri10/24/23 at 2338, Nausea / Vomiting
If patient unable to tolerate oral ondansetron.
Or Ondansetron (ZOFRAN-ODT) disintegrating tablet 4 mgJump to med 4 mg, Oral, EVERY 6 HOURS NEEDED, Starting on Vicenta 10/23/23 at 1939, Until Fri10/24/23 at 2338, Nausea / Vomiting Scheduled Medication Order 12/03/2023 12/04/2023 12/05/2023 Acetaminophen (TYLENOL) tablet 650 mg 650 mg, Oral, EVERY 6 HOURS WHILE AWAKE, First dose on Vicenta 12/04/23 at 1800, Until Discontinued, Maximum dose of acetaminophen is 4000 mg from all sources in 24 hours. 1835 (Given - Provider: Karen Leiva RN) 0026 (Given - Provider: Rain Arredondo RN)0616 (Given - Provider: Rain Arredondo RN)1200 (Canceled Entry - Provider: System Discharge - Comment: Automatically canceled at discontinue of medication order) Acetaminophen (TYLENOL) tablet 975 mg (COMPLETED) 975 mg, Oral, ONCE, 1 dose, On Vicenta 12/04/23 at 0945, Maximum dose of acetaminophen is 4000 mg from all sources in 24 hours. 0919 (Given - Provider: Mary Dumont RN) amLODIPine (NORVASC) tablet 10 mg 10 mg, Oral, DAILY, First dose on Vicenta 12/04/23 at 1130, Until Discontinued 1122 (Given - Provider: Nimo Byers RN) 0805 (Given - Provider: Andre Sexton RN) Folic acid (FOLVITE) tablet 1 mg 1 mg, Oral, DAILY, First dose on Vicenta 12/04/23 at 1345, Until Discontinued 1345 (Given - Provider: Nimo Byers RN) 0805 (Given - Provider: Andre Sexton, SUNNY) Heparin injection 5,000 Units 5,000 Units, Subcutaneous, EVERY 12 HOURS, First dose on Vicenta 12/04/23 at 2100, Until Discontinued, HIGH RISK MEDICATION, MONITOR PLATELET COUNT, CALL IF DECREASED BY GREATER THAN 50% OR LESS THAN 100,00 2140 (Canceled Entry - Provider: Rain Arredondo RN)2219 (Given - Provider: Rain Arredondo RN) 0805 (Given - Provider: Andre Sexton, SUNNY) HYDROmorphone (DILAUDID) injection 1 mg (COMPLETED) 1 mg, Intravenous, ONCE, 1 dose, On Vicenta 12/04/23 at 1215 1147 (Given - Provider: Nimo Byers RN) lidocaine (LIDODERM) 5 % patch 2 patch 2 patch, Transdermal, Administer over 12 Hours, EVERY 24 HOURS, First dose on Vicenta 12/04/23 at 1800, Until Discontinued, Apply to R hip . Remove patch after duration of 12 hours. An action of Patch Applied within the MAR will schedule the MAR patch removal 12 hours later. 183 (Patch Applied - Provider: Karen Leiva RN) 0738 (Patch Removed - Provider: Andre Sexton RN) Morphine (PF) injection 4 mg (COMPLETED) 4 mg, Intravenous, ONCE, 1 dose, On Vicenta 12/04/23 at 1030 1006 (Given - Provider: Nimo Byers RN) Naproxen (NAPROSYN) tablet 500 mg (COMPLETED) 500 mg, Oral, ONCE, 1 dose, On Vicenta 12/04/23 at 0945, Give with food 0919 (Given - Provider: Mary Dumont RN) Nicotine (NICODERM CQ) 21 MG/24HR patch 1 patch 1 patch, Transdermal, EVERY 24 HOURS, First dose on Vicenta 12/04/23 at 1800, Until Discontinued 183 (Patch Applied - Provider: Karen Leiva RN) 1028 (Due: Patch Removed - Provider: System Discharge - Comment: Time automatically adjusted from order being discontinued) oxyCODONE (ROXICODONE) tablet 5 mg (COMPLETED) 5 mg, Oral, ONCE, 1 dose, On Fri12/04/23 at 0945 0919 (Given - Provider: Mary Dumont RN) Potassium chloride (K-DUR) tablet ER 40 mEq (COMPLETED) 40 mEq, Oral, ONCE, 1 dose, On Fri12/05/23 at 0800 0805 (Given - Provid er: Andre Sexton RN) Sodium chloride 0.9% IV solution 1,000 mL (COMPLETED) 1,000 mL, Intravenous, at 999 mL/hr, ONCE, 1 dose, On Vicenta 12/04/23 at 1345 1345 ($$New Bag$$ - Provider: Nimo Byers RN)1612 (Stopped - Provider: Nimo Byers RN) Thera-M tablet 1 tablet 1 tablet, Oral, DAILY, First dose on Fri12/04/23 at 1345, Until Discontinued 1345 (Given - Provider: Nimo Byers RN) 0805 (Given - Provider: Andre Sexton, SUNNY) thiamine (B-1) 100 mg in Sodium chloride 0.9% 51 mL (total volume) IVPB 100 mg, Intravenous, at 102 mL/hr, Administer over 30 Minutes, DAILY, 3 doses, First dose on Vicenta 12/04/23 at 1345, Last dose on Fri12/06/23 at 0900 1345 ($$New Bag$$ - Provider: Nimo Byers RN)1415 (Stopped - Provider: Nimo Byers RN) 0805 ($$New Bag$$ - Provider: Andre Sexton, SUNNY)0853 (Stopped - Provider: Andre Sexton RN) thiamine mononitrate tablet 100 mg 100 mg, Oral, EVERY 8 HOURS (0800/1600/2200), 15 doses, First dose on Fri12/07/23 at 0800, Last dose on Fri12/11/23 at 2200 PRN Medication Order 12/03/2023 12/04/2023 12/05/2023 Alum & Mag Hydroxide-Simeth (MYLANTA) 200-200-20 MG/5ML suspension 30 mL 30 mL, Oral, EVERY 6 HOURS NEEDED, Starting on Vicenta 12/04/23 at 1757, Until Fri12/05/23 at 1228, Other, Indigestion, if SCr Less than or equal to 1.4, SHAKE WELL aluminum hydroxide (ALTERNGEL) oral suspension 640 mg 640 mg, Oral, EVERY 6 HOURS NEEDED, Starting on Vicenta 12/04/23 at 1757, Until Fri12/05/23 at 1228, Indigestion, if SCr greater than 1.4., SHAKE WELL Cyclobenzaprine (FLEXERIL) tablet 10 mg 10 mg, Oral, DAILY AT BEDTIME NEEDED, Starting on Vicenta 12/04/23 at 1757, Until Fri12/05/23 at 1228, Muscle spasms 221 (Given - Provider: Rain Arredondo, SUNNY) Ketorolac (TORADOL) injection 15 mg 15 mg, Intravenous, EVERY 6 HOURS NEEDED, Starting on Vicenta 12/04/23 at 1757, Until Fri12/05/23 at 1228, Moderate Pain, Maximum of 5 days of therapy. 2008 (Given - Provider: Rain Arredondo RN) 250 (Given - Provider: Rain Arredondo, SUNNY) LORazepam (ATIVAN) injection 2 mg 2 mg, Intravenous, EVERY 1 HOUR NEEDED, Starting on Vicenta 12/04/23 at 1309, Until Fri12/05/23 at 1228, Other, For Seizure, Extravasation Risk 1345 (Given - Provider: Nimo Byers RN) Ondansetron (ZOFRAN-ODT) disintegrating tablet 4 mg(Linked Group 1) 4 mg, Oral, EVERY 6 HOURS NEEDED, Starting on Vicenta 12/04/23 at 1757, Until Fri12/05/23 at 1228, Nausea / Vomiting 0618 (Given - Provid er: Rain Arredondo RN) Ondansetron 4mg/2ml (ZOFRAN) injection 4 mg(Linked Group 1) 4 mg, Intravenous, EVERY 6 HOURS NEEDED, Starting on Vicenta 12/04/23 at 1757, Until Fri12/05/23 at 1228, Nausea / Vomiting, If patient unable to tolerate oral ondansetron. 0618 (See Alternativ e - Provider: Rain Arredondo RN) Sodium chloride 0.9% IV solution Intravenous, at 100 mL/hr, NEEDED, Starting on Vicenta 12/04/23 at 1309, Until Fri12/05/23 at 1228, Carrier Fluid- see admin instructions, 0.9% NaCl 250 ml to be used as carrier fluid and to flush the line as needed for intermittent small volume or piggyback medication of 100 ml or less without any maintenance IV fluid or incompatible IV fluid infusing. Infusion of the carrier fluid will be a volume of 20 ml at a rate of 100 ml/hr. Infuse carrier fluid after completion of the piggyback medication. Run as Primary IV. NOT intended for KVO. Sodium chloride 0.9% IV solution Intravenous, at 100 mL/hr, NEEDED, Starting on Vicenta 12/04/23 at 1757, Until Fri12/05/23 at 1228, Carrier Fluid- see admin instructions, 0.9% NaCl 250 ml to be used as carrier fluid and to flush the line as needed for intermittent small volume or piggyback medication of 100 ml or less without any maintenance IV fluid or incompatible IV fluid infusing. Infusion of the carrier fluid will be a volume of 20 ml at a rate of 100 ml/hr. Infuse carrier fluid after completion of the piggyback medication. Run as Primary IV. NOT intended for KVO. 0853 ($$New Bag$$ - Provider: Andre Sexton RN)0910 (Stopped - Provider: Andre Sexton RN) sodium chloride flush 0.9 % injection 5 mL 5 mL, Intravenous, NEEDED, Starting on Vicenta 12/04/23 at 1309, Until Fri12/05/23 at 1228, Flush, Administer before and after IV medications. sodium chloride flush 0.9 % injection 5 mL 5 mL, Intravenous, NEEDED, Starting on Vicenta 12/04/23 at 1757, Until Fri12/05/23 at 1228, Flush, Administer before and after IV medications. Linked Groups Order Group 1: Ondansetron 4mg/2ml (ZOFRAN) injection 4 mgJump to med 4 mg, Intravenous, EVERY 6 HOURS NEEDED, Starting on [place] 12/04/23 at 1757, Until Fri12/05/23 at 1228, Nausea / Vomiting, If patient unable to tolerate oral ondansetron. Or Ondansetron (ZOFRAN-ODT) disintegrating tablet 4 mgJump to med 4 mg, Oral, EVERY 6 HOURS NEEDED, Starting on Vicenta 12/04/23 at 1757, Until Fri12/05/23 at 1228, Nausea / Vomiting Scheduled Medication Order 12/03/2023 12/04/2023 12/05/2023 Acetaminophen (TYLENOL) tablet 650 mg 650 mg, Oral, EVERY 6 HOURS WHILE AWAKE, First dose on Vicenta 12/04/23 at 1800, Until Discontinued, Maximum dose of acetaminophen is 4000 mg from all sources in 24 hours. 1835 (Given - Provider: Karen Leiva RN) 0026 (Given - Provider: Rain Arredondo RN)0616 (Given - Provider: Rain Arredondo RN)1200 (Canceled Entry - Provider: System Discharge - Comment: Automatically canceled at discontinue of medication order) Acetaminophen (TYLENOL) tablet 975 mg (COMPLETED) 975 mg, Oral, ONCE, 1 dose, On Vicenta 12/04/23 at 0945, Maximum dose of acetaminophen is 4000 mg from all sources in 24 hours. 0919 (Given - Provider: Mary Dumont RN) amLODIPine (NORVASC) tablet 10 mg 10 mg, Oral, DAILY, First dose on Vicenta 12/04/23 at 1130, Until Discontinued 1122 (Given - Provider: Nimo Byers RN) 0805 (Given - Provider: Andre Sexton, SUNNY) Folic acid (FOLVITE) tablet 1 mg 1 mg, Oral, DAILY, First dose on Vicenta 12/04/23 at 1345, Until Discontinued 1345 (Given - Provider: Nimo Byers RN) 0805 (Given - Provider: Andre Sexton, SUNNY) Heparin injection 5,000 Units 5,000 Units, Subcutaneous, EVERY 12 HOURS, First dose on Vicenta 12/04/23 at 2100, Until Discontinued, HIGH RISK MEDICATION, MONITOR PLATELET COUNT, CALL IF DECREASED BY GREATER THAN 50% OR LESS THAN 100,00 2140 (Canceled Entry - Provider: Rain Arredondo RN)2219 (Given - Provider: Rain Arredondo RN) 0805 (Given - Provider: Andre Sexton, SUNNY) HYDROmorphone (DILAUDID) injection 1 mg (COMPLETED) 1 mg, Intravenous, ONCE, 1 dose, On Vic[place] 12/04/23 at 1215 1147 (Given - Provider: Nimo Byers RN) lidocaine (LIDODERM) 5 % patch 2 patch 2 patch, Transdermal, Administer over 12 Hours, EVERY 24 HOURS, First dose on Vicenta 12/04/23 at 1800, Until Discontinued, Apply to R hip . Remove patch after duration of 12 hours. An action of Patch Applied within the MAR will schedule the MAR patch removal 12 hours later. 183 (Patch Applied - Provider: Karen Leiva RN) 0738 (Patch Removed - Provider: Andre Sexton, SUNNY) Morphine (PF) injection 4 mg (COMPLETED) 4 mg, Intravenous, ONCE, 1 dose, On Vicenta 12/04/23 at 1030 1006 (Given - Provider: Nimo Byers RN) Naproxen (NAPROSYN) tablet 500 mg (COMPLETED) 500 mg, Oral, ONCE, 1 dose, On Vicenta 12/04/23 at 0945, Give with food 0919 (Given - Provider: Mary Dumont RN) Nicotine (NICODERM CQ) 21 MG/24HR patch 1 patch 1 patch, Transdermal, EVERY 24 HOURS, First dose on Fri12/04/23 at 1800, Until Discontinued 1834 (Patch Applied - Provider: Karen Leiva RN) 1028 (Due: Patch Removed - Provider: System Discharge - Comment: Time automatically adjusted from order being discontinued) oxyCODONE (ROXICODONE) tablet 5 mg (COMPLETED) 5 mg, Oral, ONCE, 1 dose, On Fri12/04/23 at 0945 0919 (Given - Provider: Mary Dumont RN) Potassium chloride (K-DUR) tablet ER 40 mEq (COMPLETED) 40 mEq, Oral, ONCE, 1 dose, On Fri12/05/23 at 0800 0805 (Given - Provid er: Andre Sexton RN) Sodium chloride 0.9% IV solution 1,000 mL (COMPLETED) 1,000 mL, Intravenous, at 999 mL/hr, ONCE, 1 dose, On Vicenta 12/04/23 at 1345 1345 ($$New Bag$$ - Provider: Nimo Byers RN)1612 (Stopped - Provider: Nimo Byers RN) Thera-M tablet 1 tablet 1 tablet, Oral, DAILY, First dose on Vicenta 12/04/23 at 1345, Until Discontinued 1345 (Given - Provider: Nimo Byers RN) 0805 (Given - Provider: Andre Sexton, SUNNY) thiamine (B-1) 100 mg in Sodium chloride 0.9% 51 mL (total volume) IVPB 100 mg, Intravenous, at 102 mL/hr, Administer over 30 Minutes, DAILY, 3 doses, First dose on Vicenta 12/04/23 at 1345, Last dose on Fri12/06/23 at 0900 1345 ($$New Bag$$ - Provider: Nimo Byers RN)1415 (Stopped - Provider: Nimo Byers RN) 0805 ($$New Bag$$ - Provider: Andre Sexton RN)0853 (Stopped - Provider: Andre Sexton, RN) thiamine mononitrate tablet 100 mg 100 mg, Oral, EVERY 8 HOURS (0800/1600/2200), 15 doses, First dose on Fri12/07/23 at 0800, Last dose on Fri12/11/23 at 2200 PRN Medication Order 12/03/2023 12/04/2023 12/05/2023 Alum & Mag Hydroxide-Simeth (MYLANTA) 200-200-20 MG/5ML suspension 30 mL 30 mL, Oral, EVERY 6 HOURS NEEDED, Starting on Vicenta 12/04/23 at 1757, Until Fri12/05/23 at 1228, Other, Indigestion, if SCr Less than or equal to 1.4, SHAKE WELL aluminum hydroxide (ALTERNGEL) oral suspension 640 mg 640 mg, Oral, EVERY 6 HOURS NEEDED, Starting on Vicenta 12/04/23 at 1757, Until Fri12/05/23 at 1228, Indigestion, if SCr greater than 1.4., SHAKE WELL Cyclobenzaprine (FLEXERIL) tablet 10 mg 10 mg, Oral, DAILY AT BEDTIME NEEDED, Starting on Vicenta 12/04/23 at 1757, Until Fri12/05/23 at 1228, Muscle spasms 2219 (Given - Provider: Rain Arredondo RN) Ketorolac (TORADOL) injection 15 mg 15 mg, Intravenous, EVERY 6 HOURS NEEDED, Starting on Vicenta 12/04/23 at 1757, Until Fri12/05/23 at 1228, Moderate Pain, Maximum of 5 days of therapy. 2008 (Given - Provider: Rain Arredondo RN) 250 (Given - Provider: Rain Arredondo RN) LORazepam (ATIVAN) injection 2 mg 2 mg, Intravenous, EVERY 1 HOUR NEEDED, Starting on [place]enta 12/04/23 at 1309, Until Fri12/05/23 at 1228, Other, For Seizure, Extravasation Risk 1345 (Given - Provider: Nimo Byers RN) Ondansetron (ZOFRAN-ODT) disintegrating tablet 4 mg(Linked Group 1) 4 mg, Oral, EVERY 6 HOURS NEEDED, Starting on Vicenta 12/04/23 at 1757, Until Fri12/05/23 at 1228, Nausea / Vomiting 0618 (Given - Provid er: Rain Arredondo RN) Ondansetron 4mg/2ml (ZOFRAN) injection 4 mg(Linked Group 1) 4 mg, Intravenous, EVERY 6 HOURS NEEDED, Starting on Vicenta 12/04/23 at 1757, Until Fri12/05/23 at 1228, Nausea / Vomiting, If patient unable to tolerate oral ondansetron. 0618 (See Alternativ e - Provider: Rain Arredondo RN) Sodium chloride 0.9% IV solution Intravenous, at 100 mL/hr, NEEDED, Starting on Vicenta 12/04/23 at 1309, Until Fri12/05/23 at 1228, Carrier Fluid- see admin instructions, 0.9% NaCl 250 ml to be used as carrier fluid and to flush the line as needed for intermittent small volume or piggyback medication of 100 ml or less without any maintenance IV fluid or incompatible IV fluid infusing. Infusion of the carrier fluid will be a volume of 20 ml at a rate of 100 ml/hr. Infuse carrier fluid after completion of the piggyback medication. Run as Primary IV. NOT intended for KVO. Sodium chloride 0.9% IV solution Intravenous, at 100 mL/hr, NEEDED, Starting on Vicenta 12/04/23 at 1757, Until Fri12/05/23 at 1228, Carrier Fluid- see admin instructions, 0.9% NaCl 250 ml to be used as carrier fluid and to flush the line as needed for intermittent small volume or piggyback medication of 100 ml or less without any maintenance IV fluid or incompatible IV fluid infusing. Infusion of the carrier fluid will be a volume of 20 ml at a rate of 100 ml/hr. Infuse carrier fluid after completion of the piggyback medication. Run as Primary IV. NOT intended for KVO. 0853 ($$New Bag$$ - Provider: Andre Sexton, SUNNY)0910 (Stopped - Provider: Andre Sexton RN) sodium chloride flush 0.9 % injection 5 mL 5 mL, Intravenous, NEEDED, Starting on Vicenta 12/04/23 at 1309, Until Fri12/05/23 at 1228, Flush, Administer before and after IV medications. sodium chloride flush 0.9 % injection 5 mL 5 mL, Intravenous, NEEDED, Starting on Vicenta 12/04/23 at 1757, Until Fri12/05/23 at 1228, Flush, Administer before and after IV medications. Linked Groups Order Group 1: Ondansetron 4mg/2ml (ZOFRAN) injection 4 mgJump to med 4 mg, Intravenous, EVERY 6 HOURS NEEDED, Starting on Vicenta 12/04/23 at 1757, Until Fri12/05/23 at 1228, Nausea / Vomiting, If patient unable to tolerate oral ondansetron. Or Ondansetron (ZOFRAN-ODT) disintegrating tablet 4 mgJump to med 4 mg, Oral, EVERY 6 HOURS NEEDED, Starting on [place]enta 12/04/23 at 1757, Until Fri12/05/23 at 1228, Nausea / Vomiting Scheduled Medication Order 12/05/2023 12/06/2023 12/07/2023 amLODIPine (NORVASC) tablet 10 mg 10 mg, Oral, DAILY, First dose on 12/06/23 at 0900, Until Discontinued 08 (Given - Provider: Wilma Rodríguez RN) 0758 (Given - Provider: Wilma Rodríguez RN) Atorvastatin (LIPITOR) tablet 40 mg 40 mg, Oral, DAILY, First dose on 12/06/23 at 0900, Until Discontinued 08 (Given - Provider: Wilma Rodríguez RN) 0758 (Given - Provider: Wilma Rodríguez RN) Ketorolac (TORADOL) injection 15 mg (COMPLETED) 15 mg, Intravenous, ONCE, 1 dose, On 12/06/23 at 0145 0158 (Given - Provider: Julius Ocasio RN) lidocaine (LIDODERM) 5 % patch 2 patch 2 patch, Transdermal, Administer over 12 Hours, EVERY 24 HOURS, First dose on 12/06/23 at 0815, Until Discontinued, Apply to Right hip . Remove patch after duration of 12 hours. An action of Patch Applied within the MAR will schedule the MAR patch removal 12 hours later. 1331 (Patch Applied - Provider: Wilma Rodríguez, RN) 0011 (Patch Removed - Provider: Vangie Kruger, RN)0758 (Patch Applied - Provider: Wilma Rodríguez RN - Comment: pt request)1025 (Due: Patch Removed - Provider: System Discharge - Comment: Time automatically adjusted from order being discontinued) LORazepam (ATIVAN) injection 1-4 mg(Linked Group 1) 1-4 mg, Intravenous, SEE ADMIN INSTRUCTIONS, Starting on 12/06/23 at 0226, Until 12/07/23 at 1232, Titrate to CIWA score: Less than 8 = no pharmacological intervention - reassess in 4 hours 8 - 10 = 1 mg; reassess in 4 hours 11-14 = 2 mg; reassess in 2 hours 15 - 25 = 3 mg reassess in 1 hour and arrange to transfer patient to ICU Greater than 25 = 4 mg and call physician. Reassess in 15 minutes and arrange to transfer patient to ICU. Extravasation Risk 0235 (Given - Provider: Julius Ocasio RN - Comment: CIWA 8) LORazepam (ATIVAN) tablet 1-4 mg(Linked Group 1) 1-4 mg, Oral, SEE ADMIN INSTRUCTIONS, Starting on 12/06/23 at 0226, Until 12/07/23 at 1232, Titrate to CIWA score: Less than 8 = no pharmacological intervention - reassess in 4 hours 8 - 10 = 1 mg; reassess in 4 hours 11-14 = 2 mg; reassess in 2 hours 15 - 25 = 3 mg reassess in 1 hour and arrange to transfer patient to ICU Greater than 25 = 4 mg and call physician. Reassess in 15 minutes and arrange to transfer patient to ICU. 0235 (See Alternative - Provider: Julius Ocasio RN) Morphine (PF) injection 4 mg (COMPLETED) 4 mg, Intravenous, ONCE, 1 dose, On 12/06/23 at 0615 0536 (Given - Provider: Vangie Kruger, SUNNY) multiple vitamin (MVI) 10 mL, Folic acid 1 mg, Thiamine (Vitamin B-1) 100 mg in Sodium chloride 0.9%, with overfill 1,061.2 mL (total volume) infusion (COMPLETED) Intravenous, ONCE, 1 dose, On 12/06/23 at 0830 0923 ($$New Bag$$ - Provider: Wilma Rodríguez RN)1346 (Stopped - Provider: Wilma Rodríguez RN) Ondansetron 4mg/2ml (ZOFRAN) injection 4 mg (COMPLETED) 4 mg, Intravenous, ONCE, 1 dose, On 12/06/23 at 0215 0157 (Given - Provider: Julius Ocasio RN) oxyCODONE (ROXICODONE) tablet 5 mg (COMPLETED) 5 mg, Oral, ONCE, 1 dose, On 12/06/23 at 0815 0809 (Given - Provider: Wilma Rodríguez RN) Pantoprazole (PROTONIX) tablet DR 40 mg 40 mg, Oral, DAILY, First dose on 12/06/23 at 0900, Until Discontinued, Swallow whole; do not crush or chew., Indications: GERD 0809 (Given - Provider: Wilma Rodríguez RN) 0758 (Given - Provider: Wilma Rodríguez RN) Promethazine (PHENERGAN) injection 12.5 mg (COMPLETED) 12.5 mg, Intramuscular, ONCE, 1 dose, On 12/06/23 at 0300, Extravasation Risk. AVOID intra-arterial administration; necrosis & gangrene have resulted. Hand, wrist or foot veins SHOULD BE AVOIDED. 0230 (Given - Provider: Julius Ocasio RN) Sodium chloride 0.9% IV solution 1,000 mL (COMPLETED) 1,000 mL, Intravenous, ONCE, 1 dose, On 12/06/23 at 0145 0157 ($$New Bag$$ - Provider: Julius Ocasio RN)0256 (Stopped - Provider: Jluius Ocasio RN) Sodium chloride 0.9% IV solution 1,000 mL (COMPLETED) 1,000 mL, Intravenous, at 999 mL/hr, ONCE, 1 dose, On 12/06/23 at 0815 0811 ($$New Bag$$ - Provider: Wilma Rodríguez RN)0924 (Stopped - Provider: Wilma Rodríguez RN) Continuous Medication Order 12/05/2023 12/06/2023 12/07/2023 Dextrose 5% and sodium chloride 0.9% 1,000 mL with Potassium chloride 20 mEq, Sodium bicarbonate 100 mEq IV solution (CANCELED) Intravenous, CONTINUOUS, Starting on 12/06/23 at 0800, Until 12/06/23 at 1420 0936 ($$New Bag$$ - Provider: Wilma Rodríguez RN)1346 (Rate/Dose Verify - Provider: Wilma Rodríguez RN)1841 (Stopped - Provider: Viky Clifton RN) Lactated ringers IV solution (CANCELED) Intravenous, at 100 mL/hr, CONTINUOUS, Starting on 12/06/23 at 1430, Until 12/07/23 at 0729 1842 ($$New Bag$$ - Provider: Viky Clifton RN) 0433 (Rate/Dose Verify - Provider: Vangie Kruger, SUNNY)0434 ($$New Bag$$ - Provider: Vangie Kruger RN)0804 (Stopped - Provider: Wilma Rodríguez RN) PRN Medication Order 12/05/2023 12/06/2023 12/07/2023 Acetaminophen (TYLENOL) suppository 650 mg(Linked Group 2) 650 mg, Rectal, EVERY 4 HOURS NEEDED, Starting on 12/06/23 at 0732, Until 12/07/23 at 1232, Oral temp > 100.4 F, Headaches, If unable to tolerate oral acetaminophen. 1332 (See Alternative - Provider: Wilma Rodríguez RN) Acetaminophen (TYLENOL) tablet 650 mg(Linked Group 2) 650 mg, Oral, EVERY 4 HOURS NEEDED, Starting on 12/06/23 at 0732, Until 12/07/23 at 1232, Oral temp > 100.4 F, Headaches, Maximum dose of acetaminophen is 4000 mg from all sources in 24 hours. 1332 (Given - Provider: Wilma Rodríguez RN) Alum & Mag Hydroxide-Simeth (MYLANTA) 200-200-20 MG/5ML suspension 30 mL 30 mL, Oral, EVERY 6 HOURS NEEDED, Starting on 12/06/23 at 0732, Until 12/07/23 at 1232, Other, Indigestion, if SCr Less than or equal to 1.4, SHAKE WELL aluminum hydroxide (ALTERNGEL) oral suspension 640 mg 640 mg, Oral, EVERY 6 HOURS NEEDED, Starting on 12/06/23 at 0732, Until 12/07/23 at 1232, Indigestion, if SCr greater than 1.4., SHAKE WELL Calcium chloride 1 g in with overfill, Sodium chloride 0.9% 70 mL (total volume) IVPB(Linked Group 3) 1 g, Intravenous, Administer over 60 Minutes, ADMINISTER DIRECTED, Starting on 12/06/23 at 1350, Until 12/07/23 at 1232, See admin instructions, Calcium Replacement Protocol, *Telemetry Required* Use only if SCr Less than or = to 2 Mg/DL. For Ionized Calcium level Less than -or- Equal to 3.4 Mg/DL Administer 1 grams over 60 minutes AND repeat Calcium Level 4 hours after infusion is complete. *Extravasation Risk* Extravasation Risk calcium gluconate IVPB 1 g in 0.9% NaCl IVPB 1,000 mg(Linked Group 3) 1,000 mg (1 g), Intravenous, at 100 mL/hr, Administer over 30 Minutes, ADMINISTER DIRECTED, Starting on 12/06/23 at 1350, Until 12/07/23 at 1232, See admin instructions, Calcium Replacement Protocol, *Telemetry Required* Use only if SCr Less than or = to 2 Mg/DL. For Ionized Calcium level 4.0-4.5 Mg/DL Administer 1 gram Extravasation Risk Calcium Gluconate-NaCl premix IV 2,000 mg(Linked Group 3) 2,000 mg (2 g), Intravenous, at 100 mL/hr, Administer over 60 Minutes, ADMINISTER DIRECTED, Starting on 12/06/23 at 1350, Until 12/07/23 at 1232, Other, Calcium Replacement Protocol, *Telemetry Required* Use only if SCr Less than or = to 2 Mg/DL. For Ionized Calcium level 3.5-3.9 Mg/DL Administer 2 grams AND repeat Calcium Level 4 hours after infusion is complete. Extravasation Risk Cyclobenzaprine (FLEXERIL) tablet 10 mg 10 mg, Oral, DAILY AT BEDTIME NEEDED, Starting on 12/06/23 at 0732, Until 12/07/23 at 1232, Muscle spasms Ketorolac (TORADOL) injection 15 mg (COMPLETED) 15 mg, Intravenous, EVERY 6 HOURS NEEDED, 3 doses, Starting on 12/06/23 at 1341, Until 12/07/23 at 0758, Moderate Pain, Maximum of 5 days of therapy. 1420 (Given - Provider: Wilma Rodríguez RN) 0000 (Given - Provider: Vangie Kruger, RN)0758 (Given - Provider: Wilma Rodríguez RN) LORazepam (ATIVAN) injection 2 mg 2 mg, Intravenous, EVERY 1 HOUR NEEDED, Starting on 12/06/23 at 0225, Until 12/07/23 at 1232, Other, For Seizure, Extravasation Risk Magnesium sulfate 2 g/50 ml in sterile water premix IVPB 2 g 50 mL (total volume) 2 g, Intravenous, at 50 mL/hr, Administer over 1 Hours, ADMINISTER DIRECTED, Starting on 12/06/23 at 1350, Until 12/07/23 at 1232, Other, Magnesium Replacement Protocol, Telemetry Required Use only if SCr Less than or = to 2 Mg/DL. For Magnesium Level 1.4 - 1.7 mEq/L Administer 2 grams over 60 minutes once For Magnesium Level 0.6-1.3 mEq Administer 2 grams over 60 minutes x 2 (for total dose of 4 grams) and repeat Magnesium 4 hours after infusion complete 1421 ($$New Bag$$ - Provider: Wilma Rodríguez RN)1525 (Stopped - Provider: Wilma Rodríguez RN) Ondansetron 4mg/2ml (ZOFRAN) injection 4 mg 4 mg, Intravenous, EVERY 6 HOURS NEEDED, Starting on 12/06/23 at 0532, Until 12/07/23 at 1232, Nausea / Vomiting oxyCODONE (ROXICODONE) tablet 5 mg 5 mg, Oral, EVERY 6 HOURS NEEDED, Starting on 12/06/23 at 0821, Until 12/07/23 at 1232, Severe Pain 1420 (Given - Provider: Wilma Rodríguez RN)2100 (Given - Provider: Vangie Kruger, RN) 0434 (Given - Provider: Vangie Kruger, RN) Potassium chloride (K-DUR) tablet ER 20-40 mEq(Linked Group 4) 20-40 mEq, Oral, ADMINISTER DIRECTED, Starting on 12/06/23 at 1350, Until 12/07/23 at 1232, Other, Potassium Replacement Protocol, Telemetry Required Oral route preferred if able to tolerate, SCr is Less than or = to 2 MG/DL AND Serum Potassium Greater than 3.0 MEQ/L For Serum Potassium 3.5-3.9 MEQ/L Administer 20 mEq one time For Serum Potassium 3.0-3.4 MEQ/L Administer 40 mEq one time Repeat Potassium level 4 hours after administration of 40 mEq dose 1420 (Given - Provider: Wilma Rodríguez RN) Potassium chloride 10 mEq in sterile water 100 ml premix IVPB(Linked Group 4) 10 mEq, Intravenous, at 100 mL/hr, Administer over 60 Minutes, ADMINISTER DIRECTED, Starting on 12/06/23 at 1350, Until 12/07/23 at 1232, Other, See admin instructions, Potassium Replacement Protocol - Unable to tolerate oral potassium, Telemetry Required For Serum Potassium of 3.5 - 3.9 MEQ/L Administer 10 mEq x 2 (total of 20 mEq) over 2 hours For Serum Potassium of Less than 3.5 MEQ/L Administer 10 mEq x4 (total of 40 mEq) over 4 hours - Repeat Potassium Level 4 hours after infusion completed. Oral route preferred if able to tolerate PO and Serum Potassium NOT less than 3 MEQ/L If pharmacy available, MAR Message to request compound dose 1420 (See Alternative - Provider: Wilma Rodríguez RN) Potassium chloride 20 mEq in Sodium chloride 0.9%, with overfill 285 mL (total volume) IVPB(Linked Group 4) 20 mEq, Intravenous, at 142.5 mL/hr, Administer over 2 Hours, ADMINISTER DIRECTED, Starting on 12/06/23 at 1350, Until 12/07/23 at 1232, Low Potassium, Other, Potassium Replacement Protocol, Telemetry Required For Serum Potassium of 3.5 - 3.9 MEQ/L Administer 20 mEq Oral route preferred if able to tolerate PO and Serum Potassium NOT less than 3 MEQ/L If pharmacy available, MAR Message to request compound dose 1420 (See Alternative - Provider: Wilma Rodríguez RN) Potassium chloride 40 mEq in Sodium chloride 0.9%, with overfill 570 mL (total volume) IVPB(Linked Group 4) 40 mEq, Intravenous, at 142.5 mL/hr, Administer over 4 Hours, ADMINISTER DIRECTED, Starting on 12/06/23 at 1350, Until 12/07/23 at 1232, Low Potassium, Other, Potassium Replacement Protocol, Telemetry Required For Serum Potassium of Less than 3.5 MEQ/L Administer 40 mEq - Repeat Potassium Level 4 hours after infusion completed. Oral route preferred if able to tolerate PO and Serum Potassium NOT less than 3 MEQ/L If pharmacy available, MAR Message to request compound dose 1420 (See Alternative - Provider: Wilma Rodríguez RN) Sodium chloride 0.9% IV solution Intravenous, at 100 mL/hr, NEEDED, Starting on 12/06/23 at 0225, Until 12/07/23 at 1232, Carrier Fluid- see admin instructions, 0.9% NaCl 250 ml to be used as carrier fluid and to flush the line as needed for intermittent small volume or piggyback medication of 100 ml or less without any maintenance IV fluid or incompatible IV fluid infusing. Infusion of the carrier fluid will be a volume of 20 ml at a rate of 100 ml/hr. Infuse carrier fluid after completion of the piggyback medication. Run as Primary IV. NOT intended for KVO. Sodium chloride 0.9% IV solution Intravenous, at 100 mL/hr, NEEDED, Starting on 12/06/23 at 0732, Until 12/07/23 at 1232, Carrier Fluid- see admin instructions, 0.9% NaCl 250 ml to be used as carrier fluid and to flush the line as needed for intermittent small volume or piggyback medication of 100 ml or less without any maintenance IV fluid or incompatible IV fluid infusing. Infusion of the carrier fluid will be a volume of 20 ml at a rate of 100 ml/hr. Infuse carrier fluid after completion of the piggyback medication. Run as Primary IV. NOT intended for KVO. sodium chloride flush 0.9 % injection 5 mL 5 mL, Intravenous, NEEDED, Starting on 12/06/23 at 0225, Until 12/07/23 at 1232, Flush, Administer before and after IV medications. sodium chloride flush 0.9 % injection 5 mL 5 mL, Intravenous, NEEDED, Starting on 12/06/23 at 0732, Until 12/07/23 at 1232, Flush, Administer before and after IV medications. sodium phosphate in sodium chloride 0.9% 250 mL IVPB 15 mmol 15 mmol, Intravenous, Administer over 5 Hours, ADMINISTER DIRECTED, Starting on 12/06/23 at 1350, Until 12/07/23 at 1232, See admin instructions, Phosphorus Replacement Protocol, Telemetry Required Use only if SCr Less than or = to 2 Mg/DL For Phosphorus level of 1.7 to 2.2 Mg/DL Administer 15 mMol IVPB over 5 hours once For Phosphorus level Less than 1.7 Administer 15 mMol IVPB x2 Infuse each at 5 mMol/hour for total infusion time of 6 hours. Repeat Phosphorus 4 hours after infusions complete. Linked Groups Order Group 1: LORazepam (ATIVAN) injection 1-4 mgJump to med 1-4 mg, Intravenous, SEE ADMIN INSTRUCTIONS, Starting on 12/06/23 at 0226, Until 12/07/23 at 1232, Titrate to CIWA score: Less than 8 = no pharmacological intervention - reassess in 4 hours 8 - 10 = 1 mg; reassess in 4 hours 11-14 = 2 mg; reassess in 2 hours 15 - 25 = 3 mg reassess in 1 hour and arrange to transfer patient to ICU Greater than 25 = 4 mg and call physician. Reassess in 15 minutes and arrange to transfer patient to ICU. Extravasation Risk Or LORazepam (ATIVAN) tablet 1-4 mgJump to med 1-4 mg, Oral, SEE ADMIN INSTRUCTIONS, Starting on 12/06/23 at 0226, Until 12/07/23 at 1232, Titrate to CIWA score: Less than 8 = no pharmacological intervention - reassess in 4 hours 8 - 10 = 1 mg; reassess in 4 hours 11-14 = 2 mg; reassess in 2 hours 15 - 25 = 3 mg reassess in 1 hour and arrange to transfer patient to ICU Greater than 25 = 4 mg and call physician. Reassess in 15 minutes and arrange to transfer patient to ICU. Group 2: Acetaminophen (TYLENOL) tablet 650 mgJump to med 650 mg, Oral, EVERY 4 HOURS NEEDED, Starting on 12/06/23 at 0732, Until 12/07/23 at 1232, Oral temp > 100.4 F, Headaches, Maximum dose of acetaminophen is 4000 mg from all sources in 24 hours. Or Acetaminophen (TYLENOL) suppository 650 mgJump to med 650 mg, Rectal, EVERY 4 HOURS NEEDED, Starting on 12/06/23 at 0732, Until 12/07/23 at 1232, Oral temp > 100.4 F, Headaches, If unable to tolerate oral acetaminophen. Group 3: calcium gluconate IVPB 1 g in 0.9% NaCl IVPB 1,000 mgJump to med 1,000 mg (1 g), Intravenous, at 100 mL/hr, Administer over 30 Minutes, ADMINISTER DIRECTED, Starting on 12/06/23 at 1350, Until 12/07/23 at 1232, See admin instructions, Calcium Replacement Protocol, *Telemetry Required* Use only if SCr Less than or = to 2 Mg/DL. For Ionized Calcium level 4.0-4.5 Mg/DL Administer 1 gram Extravasation Risk Or Calcium Gluconate-NaCl premix IV 2,000 mgJump to med 2,000 mg (2 g), Intravenous, at 100 mL/hr, Administer over 60 Minutes, ADMINISTER DIRECTED, Starting on 12/06/23 at 1350, Until 12/07/23 at 1232, Other, Calcium Replacement Protocol, *Telemetry Required* Use only if SCr Less than or = to 2 Mg/DL. For Ionized Calcium level 3.5-3.9 Mg/DL Administer 2 grams AND repeat Calcium Level 4 hours after infusion is complete. Extravasation Risk Or Calcium chloride 1 g in with overfill, Sodium chloride 0.9% 70 mL (total volume) IVPBJump to med 1 g, Intravenous, Administer over 60 Minutes, ADMINISTER DIRECTED, Starting on 12/06/23 at 1350, Until 12/07/23 at 1232, See admin instructions, Calcium Replacement Protocol, *Telemetry Required* Use only if SCr Less than or = to 2 Mg/DL. For Ionized Calcium level Less than -or- Equal to 3.4 Mg/DL Administer 1 grams over 60 minutes AND repeat Calcium Level 4 hours after infusion is complete. *Extravasation Risk* Extravasation Risk Group 4: Potassium chloride (K-DUR) tablet ER 20-40 mEqJump to med 20-40 mEq, Oral, ADMINISTER DIRECTED, Starting on 12/06/23 at 1350, Until 12/07/23 at 1232, Other, Potassium Replacement Protocol, Telemetry Required Oral route preferred if able to tolerate, SCr is Less than or = to 2 MG/DL AND Serum Potassium Greater than 3.0 MEQ/L For Serum Potassium 3.5-3.9 MEQ/L Administer 20 mEq one time For Serum Potassium 3.0-3.4 MEQ/L Administer 40 mEq one time Repeat Potassium level 4 hours after administration of 40 mEq dose Or Potassium chloride 20 mEq in Sodium chloride 0.9%, with overfill 285 mL (total volume) IVPBJump to med 20 mEq, Intravenous, at 142.5 mL/hr, Administer over 2 Hours, ADMINISTER DIRECTED, Starting on 12/06/23 at 1350, Until 12/07/23 at 1232, Low Potassium, Other, Potassium Replacement Protocol, Telemetry Required For Serum Potassium of 3.5 - 3.9 MEQ/L Administer 20 mEq Oral route preferred if able to tolerate PO and Serum Potassium NOT less than 3 MEQ/L If pharmacy available, MAR Message to request compound dose Or Potassium chloride 40 mEq in Sodium chloride 0.9%, with overfill 570 mL (total volume) IVPBJump to med 40 mEq, Intravenous, at 142.5 mL/hr, Administer over 4 Hours, ADMINISTER DIRECTED, Starting on 12/06/23 at 1350, Until 12/07/23 at 1232, Low Potassium, Other, Potassium Replacement Protocol, Telemetry Required For Serum Potassium of Less than 3.5 MEQ/L Administer 40 mEq - Repeat Potassium Level 4 hours after infusion completed. Oral route preferred if able to tolerate PO and Serum Potassium NOT less than 3 MEQ/L If pharmacy available, MAR Message to request compound dose Or Potassium chloride 10 mEq in sterile water 100 ml premix IVPBJump to med 10 mEq, Intravenous, at 100 mL/hr, Administer over 60 Minutes, ADMINISTER DIRECTED, Starting on 12/06/23 at 1350, Until 12/07/23 at 1232, Other, See admin instructions, Potassium Replacement Protocol - Unable to tolerate oral potassium, Telemetry Required For Serum Potassium of 3.5 - 3.9 MEQ/L Administer 10 mEq x 2 (total of 20 mEq) over 2 hours For Serum Potassium of Less than 3.5 MEQ/L Administer 10 mEq x4 (total of 40 mEq) over 4 hours - Repeat Potassium Level 4 hours after infusion completed. Oral route preferred if able to tolerate PO and Serum Potassium NOT less than 3 MEQ/L If pharmacy available, MAR Message to request compound dose Scheduled Medication Order 12/05/2023 12/06/2023 12/07/2023 amLODIPine (NORVASC) tablet 10 mg 10 mg, Oral, DAILY, First dose on 12/06/23 at 0900, Until Discontinued 808 (Given - Provider: Wilma Rodríguez RN) 075 (Given - Provider: Wilma Rodríguez RN) Atorvastatin (LIPITOR) tablet 40 mg 40 mg, Oral, DAILY, First dose on 12/06/23 at 0900, Until Discontinued 808 (Given - Provider: Wilma Rodríguez RN) 075 (Given - Provider: Wilma Rodríguez RN) Ketorolac (TORADOL) injection 15 mg (COMPLETED) 15 mg, Intravenous, ONCE, 1 dose, On 12/06/23 at 0145 0158 (Given - Provider: Julius Ocasio RN) lidocaine (LIDODERM) 5 % patch 2 patch 2 patch, Transdermal, Administer over 12 Hours, EVERY 24 HOURS, First dose on 12/06/23 at 0815, Until Discontinued, Apply to Right hip . Remove patch after duration of 12 hours. An action of Patch Applied within the MAR will schedule the MAR patch removal 12 hours later. 1331 (Patch Applied - Provider: Wilma Rodríguez RN) 0011 (Patch Removed - Provider: Vangie Kruger RN)0758 (Patch Applied - Provider: Wilma Rodríguez RN - Comment: pt request)1025 (Due: Patch Removed - Provider: System Discharge - Comment: Time automatically adjusted from order being discontinued) LORazepam (ATIVAN) injection 1-4 mg(Linked Group 1) 1-4 mg, Intravenous, SEE ADMIN INSTRUCTIONS, Starting on 12/06/23 at 0226, Until 12/07/23 at 1232, Titrate to CIWA score: Less than 8 = no pharmacological intervention - reassess in 4 hours 8 - 10 = 1 mg; reassess in 4 hours 11-14 = 2 mg; reassess in 2 hours 15 - 25 = 3 mg reassess in 1 hour and arrange to transfer patient to ICU Greater than 25 = 4 mg and call physician. Reassess in 15 minutes and arrange to transfer patient to ICU. Extravasation Risk 0235 (Given - Provider: Julius Ocasio, SUNNY - Comment: CIWA 8) LORazepam (ATIVAN) tablet 1-4 mg(Linked Group 1) 1-4 mg, Oral, SEE ADMIN INSTRUCTIONS, Starting on 12/06/23 at 0226, Until 12/07/23 at 1232, Titrate to CIWA score: Less than 8 = no pharmacological intervention - reassess in 4 hours 8 - 10 = 1 mg; reassess in 4 hours 11-14 = 2 mg; reassess in 2 hours 15 - 25 = 3 mg reassess in 1 hour and arrange to transfer patient to ICU Greater than 25 = 4 mg and call physician. Reassess in 15 minutes and arrange to transfer patient to ICU. 0235 (See Alternative - Provider: Julius Ocasio RN) Morphine (PF) injection 4 mg (COMPLETED) 4 mg, Intravenous, ONCE, 1 dose, On 12/06/23 at 0615 0536 (Given - Provider: Vangie Kruger RN) multiple vitamin (MVI) 10 mL, Folic acid 1 mg, Thiamine (Vitamin B-1) 100 mg in Sodium chloride 0.9%, with overfill 1,061.2 mL (total volume) infusion (COMPLETED) Intravenous, ONCE, 1 dose, On 12/06/23 at 0830 0923 ($$New Bag$$ - Provider: Wilma Rodríguez RN)1346 (Stopped - Provider: Wilma Rodríguez, RN) Ondansetron 4mg/2ml (ZOFRAN) injection 4 mg (COMPLETED) 4 mg, Intravenous, ONCE, 1 dose, On 12/06/23 at 0215 0157 (Given - Provider: Julius Ocasio, SUNNY) oxyCODONE (ROXICODONE) tablet 5 mg (COMPLETED) 5 mg, Oral, ONCE, 1 dose, On 12/06/23 at 0815 0809 (Given - Provider: Wilma Rodríguez RN) Pantoprazole (PROTONIX) tablet DR 40 mg 40 mg, Oral, DAILY, First dose on 12/06/23 at 0900, Until Discontinued, Swallow whole; do not crush or chew., Indications: GERD 0809 (Given - Provider: Wilma Rodríguez RN) 0758 (Given - Provider: Wilma Rodríguez RN) Promethazine (PHENERGAN) injection 12.5 mg (COMPLETED) 12.5 mg, Intramuscular, ONCE, 1 dose, On 12/06/23 at 0300, Extravasation Risk. AVOID intra-arterial administration; necrosis & gangrene have resulted. Hand, wrist or foot veins SHOULD BE AVOIDED. 0230 (Given - Provider: Julius Ocasio RN) Sodium chloride 0.9% IV solution 1,000 mL (COMPLETED) 1,000 mL, Intravenous, ONCE, 1 dose, On 12/06/23 at 0145 0157 ($$New Bag$$ - Provider: Julius Ocasio RN)0256 (Stopped - Provider: Julius Ocasio RN) Sodium chloride 0.9% IV solution 1,000 mL (COMPLETED) 1,000 mL, Intravenous, at 999 mL/hr, ONCE, 1 dose, On 12/06/23 at 0815 0811 ($$New Bag$$ - Provider: Wilma Rodríguez RN)0924 (Stopped - Provider: Wilma Rodríguez RN) Continuous Medication Order 12/05/2023 12/06/2023 12/07/2023 Dextrose 5% and sodium chloride 0.9% 1,000 mL with Potassium chloride 20 mEq, Sodium bicarbonate 100 mEq IV solution (CANCELED) Intravenous, CONTINUOUS, Starting on 12/06/23 at 0800, Until 12/06/23 at 1420 0936 ($$New Bag$$ - Provider: Wilma Rodríguez RN)1346 (Rate/Dose Verify - Provider: Wilma Rodríguez RN)1841 (Stopped - Provider: Viky Clifton RN) Lactated ringers IV solution (CANCELED) Intravenous, at 100 mL/hr, CONTINUOUS, Starting on 12/06/23 at 1430, Until 12/07/23 at 0729 1842 ($$New Bag$$ - Provider: Viky Clifton RN) 0433 (Rate/Dose Verify - Provider: Vangie Kruger RN)0434 ($$New Bag$$ - Provider: Vangie Kruger RN)0804 (Stopped - Provider: Wilma Rodríguez RN) PRN Medication Order 12/05/2023 12/06/2023 12/07/2023 Acetaminophen (TYLENOL) suppository 650 mg(Linked Group 2) 650 mg, Rectal, EVERY 4 HOURS NEEDED, Starting on 12/06/23 at 0732, Until Sun 3 at 1232, Oral temp > 100.4 F, Headaches, If unable to tolerate oral acetaminophen. 1332 (See Alternative - Provider: Wilma Rodríguez RN) Acetaminophen (TYLENOL) tablet 650 mg(Linked Group 2) 650 mg, Oral, EVERY 4 HOURS NEEDED, Starting on 12/06/23 at 0732, Until Sun 3 at 1232, Oral temp > 100.4 F, Headaches, Maximum dose of acetaminophen is 4000 mg from all sources in 24 hours. 1332 (Given - Provider: Wilma Rodríguez RN) Alum & Mag Hydroxide-Simeth (MYLANTA) 200-200-20 MG/5ML suspension 30 mL 30 mL, Oral, EVERY 6 HOURS NEEDED, Starting on 12/06/23 at 0732, Until Sun 3 at 1232, Other, Indigestion, if SCr Less than or equal to 1.4, SHAKE WELL aluminum hydroxide (ALTERNGEL) oral suspension 640 mg 640 mg, Oral, EVERY 6 HOURS NEEDED, Starting on 12/06/23 at 0732, Until Sun 3 at 1232, Indigestion, if SCr greater than 1.4., SHAKE WELL Calcium chloride 1 g in with overfill, Sodium chloride 0.9% 70 mL (total volume) IVPB(Linked Group 3) 1 g, Intravenous, Administer over 60 Minutes, ADMINISTER DIRECTED, Starting on 12/06/23 at 1350, Until Sun 3 at 1232, See admin instructions, Calcium Replacement Protocol, *Telemetry Required* Use only if SCr Less than or = to 2 Mg/DL. For Ionized Calcium level Less than -or- Equal to 3.4 Mg/DL Administer 1 grams over 60 minutes AND repeat Calcium Level 4 hours after infusion is complete. *Extravasation Risk* Extravasation Risk calcium gluconate IVPB 1 g in 0.9% NaCl IVPB 1,000 mg(Linked Group 3) 1,000 mg (1 g), Intravenous, at 100 mL/hr, Administer over 30 Minutes, ADMINISTER DIRECTED, Starting on 12/06/23 at 1350, Until 12/07/23 at 1232, See admin instructions, Calcium Replacement Protocol, *Telemetry Required* Use only if SCr Less than or = to 2 Mg/DL. For Ionized Calcium level 4.0-4.5 Mg/DL Administer 1 gram Extravasation Risk Calcium Gluconate-NaCl premix IV 2,000 mg(Linked Group 3) 2,000 mg (2 g), Intravenous, at 100 mL/hr, Administer over 60 Minutes, ADMINISTER DIRECTED, Starting on 12/06/23 at 1350, Until 12/07/23 at 1232, Other, Calcium Replacement Protocol, *Telemetry Required* Use only if SCr Less than or = to 2 Mg/DL. For Ionized Calcium level 3.5-3.9 Mg/DL Administer 2 grams AND repeat Calcium Level 4 hours after infusion is complete. Extravasation Risk Cyclobenzaprine (FLEXERIL) tablet 10 mg 10 mg, Oral, DAILY AT BEDTIME NEEDED, Starting on 12/06/23 at 0732, Until 12/07/23 at 1232, Muscle spasms Ketorolac (TORADOL) injection 15 mg (COMPLETED) 15 mg, Intravenous, EVERY 6 HOURS NEEDED, 3 doses, Starting on 12/06/23 at 1341, Until 12/07/23 at 0758, Moderate Pain, Maximum of 5 days of therapy. 1420 (Given - Provider: Wilma Rodríguez RN) 0000 (Given - Provider: Vangie Kruger RN)0758 (Given - Provider: Wilma Rodríguez, SUNNY) LORazepam (ATIVAN) injection 2 mg 2 mg, Intravenous, EVERY 1 HOUR NEEDED, Starting on 12/06/23 at 0225, Until 12/07/23 at 1232, Other, For Seizure, Extravasation Risk Magnesium sulfate 2 g/50 ml in sterile water premix IVPB 2 g 50 mL (total volume) 2 g, Intravenous, at 50 mL/hr, Administer over 1 Hours, ADMINISTER DIRECTED, Starting on 12/06/23 at 1350, Until 12/07/23 at 1232, Other, Magnesium Replacement Protocol, Telemetry Required Use only if SCr Less than or = to 2 Mg/DL. For Magnesium Level 1.4 - 1.7 mEq/L Administer 2 grams over 60 minutes once For Magnesium Level 0.6-1.3 mEq Administer 2 grams over 60 minutes x 2 (for total dose of 4 grams) and repeat Magnesium 4 hours after infusion complete 1421 ($$New Bag$$ - Provider: Wilma Rodríguez RN)1525 (Stopped - Provider: Wilma Rodríguez RN) Ondansetron 4mg/2ml (ZOFRAN) injection 4 mg 4 mg, Intravenous, EVERY 6 HOURS NEEDED, Starting on 12/06/23 at 0532, Until 12/07/23 at 1232, Nausea / Vomiting oxyCODONE (ROXICODONE) tablet 5 mg 5 mg, Oral, EVERY 6 HOURS NEEDED, Starting on 12/06/23 at 0821, Until 12/07/23 at 1232, Severe Pain 1420 (Given - Provider: Wilma Rodríguez RN)2100 (Given - Provider: Vangie Kruger RN) 0434 (Given - Provider: Vangie Kruger RN) Potassium chloride (K-DUR) tablet ER 20-40 mEq(Linked Group 4) 20-40 mEq, Oral, ADMINISTER DIRECTED, Starting on 12/06/23 at 1350, Until 12/07/23 at 1232, Other, Potassium Replacement Protocol, Telemetry Required Oral route preferred if able to tolerate, SCr is Less than or = to 2 MG/DL AND Serum Potassium Greater than 3.0 MEQ/L For Serum Potassium 3.5-3.9 MEQ/L Administer 20 mEq one time For Serum Potassium 3.0-3.4 MEQ/L Administer 40 mEq one time Repeat Potassium level 4 hours after administration of 40 mEq dose 1420 (Given - Provider: Wilma Rodríguez RN) Potassium chloride 10 mEq in sterile water 100 ml premix IVPB(Linked Group 4) 10 mEq, Intravenous, at 100 mL/hr, Administer over 60 Minutes, ADMINISTER DIRECTED, Starting on 12/06/23 at 1350, Until 12/07/23 at 1232, Other, See admin instructions, Potassium Replacement Protocol - Unable to tolerate oral potassium, Telemetry Required For Serum Potassium of 3.5 - 3.9 MEQ/L Administer 10 mEq x 2 (total of 20 mEq) over 2 hours For Serum Potassium of Less than 3.5 MEQ/L Administer 10 mEq x4 (total of 40 mEq) over 4 hours - Repeat Potassium Level 4 hours after infusion completed. Oral route preferred if able to tolerate PO and Serum Potassium NOT less than 3 MEQ/L If pharmacy available, MAR Message to request compound dose 1420 (See Alternative - Provider: Wilma Rodríguez RN) Potassium chloride 20 mEq in Sodium chloride 0.9%, with overfill 285 mL (total volume) IVPB(Linked Group 4) 20 mEq, Intravenous, at 142.5 mL/hr, Administer over 2 Hours, ADMINISTER DIRECTED, Starting on 12/06/23 at 1350, Until 12/07/23 at 1232, Low Potassium, Other, Potassium Replacement Protocol, Telemetry Required For Serum Potassium of 3.5 - 3.9 MEQ/L Administer 20 mEq Oral route preferred if able to tolerate PO and Serum Potassium NOT less than 3 MEQ/L If pharmacy available, MAR Message to request compound dose 1420 (See Alternative - Provider: Wilma Rodríguez RN) Potassium chloride 40 mEq in Sodium chloride 0.9%, with overfill 570 mL (total volume) IVPB(Linked Group 4) 40 mEq, Intravenous, at 142.5 mL/hr, Administer over 4 Hours, ADMINISTER DIRECTED, Starting on 12/06/23 at 1350, Until 12/07/23 at 1232, Low Potassium, Other, Potassium Replacement Protocol, Telemetry Required For Serum Potassium of Less than 3.5 MEQ/L Administer 40 mEq - Repeat Potassium Level 4 hours after infusion completed. Oral route preferred if able to tolerate PO and Serum Potassium NOT less than 3 MEQ/L If pharmacy available, MAR Message to request compound dose 1420 (See Alternative - Provider: Wilma Rodríguez RN) Sodium chloride 0.9% IV solution Intravenous, at 100 mL/hr, NEEDED, Starting on 12/06/23 at 0225, Until 12/07/23 at 1232, Carrier Fluid- see admin instructions, 0.9% NaCl 250 ml to be used as carrier fluid and to flush the line as needed for intermittent small volume or piggyback medication of 100 ml or less without any maintenance IV fluid or incompatible IV fluid infusing. Infusion of the carrier fluid will be a volume of 20 ml at a rate of 100 ml/hr. Infuse carrier fluid after completion of the piggyback medication. Run as Primary IV. NOT intended for KVO. Sodium chloride 0.9% IV solution Intravenous, at 100 mL/hr, NEEDED, Starting on 12/06/23 at 0732, Until 12/07/23 at 1232, Carrier Fluid- see admin instructions, 0.9% NaCl 250 ml to be used as carrier fluid and to flush the line as needed for intermittent small volume or piggyback medication of 100 ml or less without any maintenance IV fluid or incompatible IV fluid infusing. Infusion of the carrier fluid will be a volume of 20 ml at a rate of 100 ml/hr. Infuse carrier fluid after completion of the piggyback medication. Run as Primary IV. NOT intended for KVO. sodium chloride flush 0.9 % injection 5 mL 5 mL, Intravenous, NEEDED, Starting on 12/06/23 at 0225, Until 12/07/23 at 1232, Flush, Administer before and after IV medications. sodium chloride flush 0.9 % injection 5 mL 5 mL, Intravenous, NEEDED, Starting on 12/06/23 at 0732, Until 12/07/23 at 1232, Flush, Administer before and after IV medications. sodium phosphate in sodium chloride 0.9% 250 mL IVPB 15 mmol 15 mmol, Intravenous, Administer over 5 Hours, ADMINISTER DIRECTED, Starting on 12/06/23 at 1350, Until 12/07/23 at 1232, See admin instructions, Phosphorus Replacement Protocol, Telemetry Required Use only if SCr Less than or = to 2 Mg/DL For Phosphorus level of 1.7 to 2.2 Mg/DL Administer 15 mMol IVPB over 5 hours once For Phosphorus level Less than 1.7 Administer 15 mMol IVPB x2 Infuse each at 5 mMol/hour for total infusion time of 6 hours. Repeat Phosphorus 4 hours after infusions complete. Linked Groups Order Group 1: LORazepam (ATIVAN) injection 1-4 mgJump to med 1-4 mg, Intravenous, SEE ADMIN INSTRUCTIONS, Starting on 12/06/23 at 0226, Until 12/07/23 at 1232, Titrate to CIWA score: Less than 8 = no pharmacological intervention - reassess in 4 hours 8 - 10 = 1 mg; reassess in 4 hours 11-14 = 2 mg; reassess in 2 hours 15 - 25 = 3 mg reassess in 1 hour and arrange to transfer patient to ICU Greater than 25 = 4 mg and call physician. Reassess in 15 minutes and arrange to transfer patient to ICU. Extravasation Risk Or LORazepam (ATIVAN) tablet 1-4 mgJump to med 1-4 mg, Oral, SEE ADMIN INSTRUCTIONS, Starting on 12/06/23 at 0226, Until 12/07/23 at 1232, Titrate to CIWA score: Less than 8 = no pharmacological intervention - reassess in 4 hours 8 - 10 = 1 mg; reassess in 4 hours 11-14 = 2 mg; reassess in 2 hours 15 - 25 = 3 mg reassess in 1 hour and arrange to transfer patient to ICU Greater than 25 = 4 mg and call physician. Reassess in 15 minutes and arrange to transfer patient to ICU. Group 2: Acetaminophen (TYLENOL) tablet 650 mgJump to med 650 mg, Oral, EVERY 4 HOURS NEEDED, Starting on 12/06/23 at 0732, Until 12/07/23 at 1232, Oral temp > 100.4 F, Headaches, Maximum dose of acetaminophen is 4000 mg from all sources in 24 hours. Or Acetaminophen (TYLENOL) suppository 650 mgJump to med 650 mg, Rectal, EVERY 4 HOURS NEEDED, Starting on 12/06/23 at 0732, Until 12/07/23 at 1232, Oral temp > 100.4 F, Headaches, If unable to tolerate oral acetaminophen. Group 3: calcium gluconate IVPB 1 g in 0.9% NaCl IVPB 1,000 mgJump to med 1,000 mg (1 g), Intravenous, at 100 mL/hr, Administer over 30 Minutes, ADMINISTER DIRECTED, Starting on 12/06/23 at 1350, Until 12/07/23 at 1232, See admin instructions, Calcium Replacement Protocol, *Telemetry Required* Use only if SCr Less than or = to 2 Mg/DL. For Ionized Calcium level 4.0-4.5 Mg/DL Administer 1 gram Extravasation Risk Or Calcium Gluconate-NaCl premix IV 2,000 mgJump to med 2,000 mg (2 g), Intravenous, at 100 mL/hr, Administer over 60 Minutes, ADMINISTER DIRECTED, Starting on 12/06/23 at 1350, Until 12/07/23 at 1232, Other, Calcium Replacement Protocol, *Telemetry Required* Use only if SCr Less than or = to 2 Mg/DL. For Ionized Calcium level 3.5-3.9 Mg/DL Administer 2 grams AND repeat Calcium Level 4 hours after infusion is complete. Extravasation Risk Or Calcium chloride 1 g in with overfill, Sodium chloride 0.9% 70 mL (total volume) IVPBJump to med 1 g, Intravenous, Administer over 60 Minutes, ADMINISTER DIRECTED, Starting on 12/06/23 at 1350, Until 12/07/23 at 1232, See admin instructions, Calcium Replacement Protocol, *Telemetry Required* Use only if SCr Less than or = to 2 Mg/DL. For Ionized Calcium level Less than -or- Equal to 3.4 Mg/DL Administer 1 grams over 60 minutes AND repeat Calcium Level 4 hours after infusion is complete. *Extravasation Risk* Extravasation Risk Group 4: Potassium chloride (K-DUR) tablet ER 20-40 mEqJump to med 20-40 mEq, Oral, ADMINISTER DIRECTED, Starting on 12/06/23 at 1350, Until 12/07/23 at 1232, Other, Potassium Replacement Protocol, Telemetry Required Oral route preferred if able to tolerate, SCr is Less than or = to 2 MG/DL AND Serum Potassium Greater than 3.0 MEQ/L For Serum Potassium 3.5-3.9 MEQ/L Administer 20 mEq one time For Serum Potassium 3.0-3.4 MEQ/L Administer 40 mEq one time Repeat Potassium level 4 hours after administration of 40 mEq dose Or Potassium chloride 20 mEq in Sodium chloride 0.9%, with overfill 285 mL (total volume) IVPBJump to med 20 mEq, Intravenous, at 142.5 mL/hr, Administer over 2 Hours, ADMINISTER DIRECTED, Starting on 12/06/23 at 1350, Until 12/07/23 at 1232, Low Potassium, Other, Potassium Replacement Protocol, Telemetry Required For Serum Potassium of 3.5 - 3.9 MEQ/L Administer 20 mEq Oral route preferred if able to tolerate PO and Serum Potassium NOT less than 3 MEQ/L If pharmacy available, MAR Message to request compound dose Or Potassium chloride 40 mEq in Sodium chloride 0.9%, with overfill 570 mL (total volume) IVPBJump to med 40 mEq, Intravenous, at 142.5 mL/hr, Administer over 4 Hours, ADMINISTER DIRECTED, Starting on 12/06/23 at 1350, Until 12/07/23 at 1232, Low Potassium, Other, Potassium Replacement Protocol, Telemetry Required For Serum Potassium of Less than 3.5 MEQ/L Administer 40 mEq - Repeat Potassium Level 4 hours after infusion completed. Oral route preferred if able to tolerate PO and Serum Potassium NOT less than 3 MEQ/L If pharmacy available, MAR Message to request compound dose Or Potassium chloride 10 mEq in sterile water 100 ml premix IVPBJump to med 10 mEq, Intravenous, at 100 mL/hr, Administer over 60 Minutes, ADMINISTER DIRECTED, Starting on 12/06/23 at 1350, Until 12/07/23 at 1232, Other, See admin instructions, Potassium Replacement Protocol - Unable to tolerate oral potassium, Telemetry Required For Serum Potassium of 3.5 - 3.9 MEQ/L Administer 10 mEq x 2 (total of 20 mEq) over 2 hours For Serum Potassium of Less than 3.5 MEQ/L Administer 10 mEq x4 (total of 40 mEq) over 4 hours - Repeat Potassium Level 4 hours after infusion completed. Oral route preferred if able to tolerate PO and Serum Potassium NOT less than 3 MEQ/L If pharmacy available, MAR Message to request compound dose FOR RECORDS PERTAINING TO PATIENTS WHO ARE OR HAVE BEEN ENROLLED IN A CHEMICAL DEPENDENCY/SUBSTANCEABUSE PROGRAM, SOME INFORMATION MAY BE OMITTED. This clinical summary was aggregated from multiple sources. Caution should be exercised in using it in the provision of clinical care. This summary normalizes information from multiple sources, and as a consequence, information in this document may materially change the coding, format and clinical context of patient data. In addition, data may be omitted in some cases. CLINICAL DECISIONS SHOULD BE BASED ON THE PRIMARY CLINICAL RECORDS. [email or web address] provides no warranty or guarantee of the accuracy or completeness of information in this document.
--- NOTE | 2023-12-29 17:51 | XR_ITS ---
[place] [address] Patient Name: ANGELLA FERNANDEZ MRN: [id number] date: 1970 Sex: M Assigned Patient Location: ED.MAIN Current Patient Location: ED.MAIN Accession/Order Number: [id number] Exam Date: 12/29/2023 18:20 Report Date: 12/29/2023 19:12 At the request of: ANH GREGORY Procedure: XR hip RT 2V w/ pelvis EXAM: XR hip RT 2V w/ pelvis TECHNIQUE: AP pelvis. AP and lateral views right hip HISTORY: pain COMPARISON: 11/12/2023 FINDINGS: There is new flattening of the subchondral surface of the right femoral head superiorly. Mild degenerative change of the right hip joint. Soft tissue swelling of the right hip joint. 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 Electronically authenticated by: CORAL HERNANDEZ Date: 12/29/2023 19:12
[2023-12-29 17:55] LABS: Basophils Absolute Auto 0.1 10^3/uL (0.0-0.1); Basophils Percent Auto 0.8 % (0.2-2.0); Eosinophils Absolute Auto 0.1 10^3/uL (0.0-0.7); Eosinophils Percent Auto 0.8 % (0.9-7.0); Hematocrit 43.2 % (42.0-54.0); Immature Granulocytes Abs Auto 0.05 10^3/uL (0.00-0.03); Immature Granulocytes Pct Auto 0.6 % (0.0-0.5); Lymphocytes Absolute Auto 1.3 10^3/uL (1.2-3.8); Mean Corpuscular HGB Conc 34.7 g/dL (29.9-35.2); Mean Corpuscular Hemoglobin 33.3 pg (25.9-34.0); Mean Platelet Volume 8.9 fL (9.5-13.5); Monocytes Absolute Auto 1.3 10^3/uL (0.3-0.8); Monocytes Percent Auto 16.5 % (1.7-12.0); Neutrophils Percent Auto 64.3 % (43.0-75.0); Platelet Count 159 10^3/uL (150-450); Red Cell Distribution Width 15.4 % (11.0-15.0); White Blood Count 7.7 10^3/uL (4.0-11.0)
[2023-12-29 18:07] LABS: Alanine Aminotransferase 67 U/L (16-63); Albumin Globulin Ratio 0.9; Albumin Level 3.2 g/dL (3.4-5.0); Alkaline Phosphatase 98 U/L (46-116); Anion Gap 15.4; Aspartate Amino Transferase 103 U/L (15-37); BUN Creatinine Ratio 21.3; Bilirubin Total 1.8 mg/dL (0.2-1.0); Calcium 8.7 mg/dL (8.5-10.1); Carbon Dioxide 28.4 mmol/L (21.0-32.0); Chloride 98 mmol/L (98-107); Estimated GFR (African America >60 (>=60); Estimated GFR (Non-African Ame >60 (>=60); Ethanol 397 mg/dL; Globulin 3.5 g/dL; Glucose 95 mg/dL (74-106); Magnesium 1.5 mg/dL (1.8-2.4); Phosphorus 2.2 mg/dL (2.6-4.7); Sodium 139 mmol/L (136-145); Total Protein 6.7 g/dL (6.4-8.2)
[2023-12-29 18:09] LABS: Potassium 2.8 mmol/L (3.5-5.1)
--- NOTE | 2023-12-29 18:17 | ECG_ITS ---
[facility] Test Date: 2023-12-29 Pat Name: ANGELLA FERNANDEZ Department: Room: - Gender: Male [employer]: : [id number] Requested By: [id number] Order Number: [id number] Reading MD: ROMÁN [place] Measurements Intervals [place] Rate: 90 P: -60 FL: 144 QRS: 52 QRSD: 104 T: 32 QT: 370 QTc: 418 Interpretive Statements Normal sinus rhythm 4068 Nonspecific Twave abnormality 9140 abnormal rhythm ECG No previous ECG available for comparison Electronically Signed On 12-29-2023 23:09:41 EDT by ROMÁN [place]
[2023-12-29 18:32] LABS: Amphetamine Screen Urine NEGATIVE (NEGATIVE); Barbiturates Screen Urine NEGATIVE (NEGATIVE); Benzodiazepines Screen Urine NEGATIVE (NEGATIVE); Buprenorphine Screen Urine NEGATIVE (NEGATIVE); Cannabinoid Screen Urine NEGATIVE (NEGATIVE); Cocaine Screen Urine NEGATIVE (NEGATIVE); Methadone Screen Urine NEGATIVE (NEGATIVE); Methamphetamines Screen Urine NEGATIVE (NEGATIVE); Opiate Screen Urine NEGATIVE (NEGATIVE); Oxycodone Screen Urine NEGATIVE (NEGATIVE); Phencyclidine Screen Urine NEGATIVE (NEGATIVE); Tricyclic Antidepressant Urine NEGATIVE (NEGATIVE)
[2023-12-29] MEDS: MAGNESIUM SULFATE/WATER 2 GM/50 ML PREMIX IV (18:36)
[2023-12-29] MEDS: POTASSIUM CHLORIDE 10 MEQ ER TABLET 20 MEQ PO (18:36)
[2023-12-29] MEDS: KETOROLAC TROMETHAMINE 30 MG/ML VIAL IM (18:36)
[2023-12-29 18:50] VITALS: PULSE 82; O2SAT 93
--- OUTSIDE RECORDS SUMMARY | 2023-12-29 20:04 | XMS_ITS | CCD ---
Author Organization [facility] Care Team Providers Care Train Gateman Name Role Phone Apolinar Cameron Primary Care Provider [phone] Cameron II, DO Apolinar E Primary Care Provider Yoli HOWARD, Glenny Moreno Unavailable José Miguel SANTOS MD, John E Primary Care Provider CAMERON TOM, APOLINAR E Primary Care Unavailable Cameron II, DO Apolinar E Primary Care Provider Glenny Kent MD Unavailable Cameron II, DO Apolinar E Primary Care Provider Glenny Kent MD Unavailable MONIK JOHNSON Attending [...] 20 mg/ml oral suspension (1 source) Uncompetitive [id number] e Receptor Antagonist, Sigma-1 Agonist Start: 03-07-2022 [...] on 12/07/23 at 0800, Last dose on Vicneta 12/11/23 at 2200 Start: 11-10-2023 Thiamine 100 [...] Oral, EVERY 6 HOURS, First dose on [facility] 10/23/23 at 1945, Until Discontinued Maximum [...] 20 tablet 12/07/2023 12/11/2023 Discontinued (Therapy completed) [id number] 200 actuat albuterol 0.09 mg/actuat metered dose [...] 4 mg, Intravenous, ONCE, 1 dose, On [facility] 12/06/23 at 0615 Start: 12-04-2023 [...] End: 12-06-2023 Intravenous, ONCE, 1 dose, On [facility] 12/06/23 at 0830 naproxen 250 mg oral tablet (3 sources) Nonsteroidal Anti-inflammatory Drug Start: 12-04-2023 End: 12-04-2023 take 1 dose by mouth once at mealtime 500 mg, Oral, ONCE, 1 dose, On [facility] 12/04/23 at 0945, Give with food [...] Transdermal, EVERY 24 HOURS, First dose on [facility] 12/04/23 at 1800, Until Discontinued omeprazole [...] Interpretation Reference Range Facility ECGon 12-08-2023 Electrocardiogram [facility] Test Date: 2023-12-06 Pat Name: ANGELLA FERNANDEZ Department: Room: ED02 Gender: Male [employer] 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: : 1970 Requested By: [id number] Order Number: [id number] Reading MD: Moncho Sutherland Measurements Intervals Jelm Rate: 112 P: 41 NC: 144 QRS: -19 QRSD: 84 T: 61 QT: 348 QTc: 475 Interpretive Statements Sinus tachycardia Electronically Signed On 12-08-2023 14:17:17 EDT by Moncho Sutherland [facility] Comment on above: Order Comment: Vet-n o Electrocardiogram [facility] Test Date: 2023-12-06 Pat Name: ANGELLA FERNANDEZ Department: Room: ED02 Gender: Male [employer] Bar[employer] Attendant: : 1970 Requested By: [id number] Order Number: [id number] Reading MD: Moncho Sutherland Measurements Intervals Jelm Rate: 118 P: 42 NC: 138 QRS: -22 QRSD: 82 T: 90 QT: 336 QTc: 470 Interpretive Statements Sinus tachycardia Left ventricular hypertrophy with repolarization abnormality (R in aVL) Electronically Signed On 12-08-2023 14:17:02 EDT by Moncho Sutherland [facility] Comment on above: Order Comment: Vet-n o CBC WITH DIFFERENTIALon 11-27 Basophils (Bld) [#/Vol] 0.04 10*3/uL [facility] Comment on above: Performed By: #### C BCD, BASIC #### [address] [address] Basophils/100 WBC (Bld) 0.6 % Normal 0.0-2.0 [facility] Comment on above: Performed By: #### C BCD, BASIC #### [address] [address] Eosinophils (Bld) [#/Vol] 0.12 10*3/uL Normal 0.00-0.50 [facility] Comment on above: Performed By: #### C BCD, BASIC #### [address] [address] Eosinophils/100 WBC (Bld) 1.7 % Normal 0.0-4.0 [facility] Comment on above: Performed By: #### C BCD, BASIC #### [address] [address] Erythrocyte distribution width (RBC) [Ratio] 13.5 % Normal 11.4-14.4 [facility] Comment on above: Performed By: #### C BCD, BASIC #### [address] [address] Hematocrit (Bld) [Volume fraction] 41.4 % Normal 34.3-53.1 [facility] Comment on above: Performed By: #### C BCD, BASIC #### [address] [address] Hemoglobin (Bld) [Mass/Vol] 13.7 g/dL Normal 11.4-17.7 [facility] Comment on above: Performed By: #### C BCD, BASIC #### [address] [address] Lymphocytes (Bld) [#/Vol] 1.83 10*3/uL Normal 1.00-4.80 [facility] Comment on above: Performed By: #### C BCD, BASIC #### [address] [address] MCH (RBC) [Entitic mass] 31.6 pg Normal 26.2-32.7 [facility] Comment on above: Performed By: #### C BCD, BASIC #### [address] [address] MCHC (RBC) [Mass/Vol] 33.1 g/dL Normal 31.6-35.0 [facility] Comment on above: Performed By: #### Kelly SIMON, BASIC #### [address] [address] MCV (RBC) [Entitic vol] 95.6 fL Normal 81.6-95.6 [facility] Comment on above: Performed By: #### Kelly SIMON, BASIC #### [address] [address] Monocytes (Bld) [#/Vol] 0.40 10*3/uL Normal 0.20-1.20 [facility] Comment on above: Performed By: #### Kelly SIMON, BASIC #### [address] [address] Monocytes/100 WBC (Bld) 5.6 % Normal 5.0-12.0 [facility] Comment on above: Performed By: #### Kelly SIMON, BASIC #### [address] [address] Neutrophils (Bld) [#/Vol] 4.73 10*3/uL Normal 2.00-7.50 [facility] Comment on above: Performed By: #### Kelly SIMON, BASIC #### [address] [address] NRBC COUNT 0.00 Normal 0.00-0.50 [facility] Comment on above: Performed By: #### Kelly SIMON, BASIC #### [address] [address] Nucleated RBC/100 WBC (Bld) [Ratio] 0.0 % Normal [facility] Comment on above: Performed By: #### Kelly BCSusan, BASIC #### [address] [address] Platelet mean volume (Bld) [Entitic vol] 8.9 fL Normal 8.9-11.5 [facility] Comment on above: Performed By: #### Kelyl BCSusan, BASIC #### [address] [address] Platelets (Bld) [#/Vol] 186 10*3/uL Normal 150-375 [facility] Comment on above: Performed By: #### C BCD, BASIC #### [address] [address] RBC (Bld) [#/Vol] 4.33 10*6/uL Normal 3.59-6.32 [facility] Comment on above: Performed By: #### C BCD, BASIC #### [address] [address] Segmented neutrophils/100 WBC (Bld) 66.2 % High 36.0-66.0 [facility] Comment on above: Performed By: #### C BCD, BASIC #### [address] [address] Variant lymphocytes Auto Ql (Bld) 25.6 % Normal 24.0-44.0 [facility] Comment on above: Performed By: #### C BCD, BASIC #### [address] [address] WBC (Bld) [#/Vol] 7.14 10*3/uL Normal 3.12-10.36 [facility] Comment on above: Performed By: #### C BCD, BASIC #### [address] [address] COMPREHENSIVE METABOLIC PANE [place] 12-07-2023 Albumin [Mass/Vol] 4.0 g/dL Normal 3.5-5.0 [facility] Comment on above: Performed By: #### C BCD, BASIC #### [address] [address] ALP [Catalytic activity/Vol] 88 U/L Normal 38-126 [facility] Comment on above: Performed By: #### C BCD, BASIC #### [address] [address] ALT [Catalytic activity/Vol] 28 U/L Normal 21-72 [facility] Comment on above: Performed By: #### C BCD, BASIC #### [address] [address] AST [Catalytic activity/Vol] 38 U/L Normal 17-59 [facility] Comment on above: Performed By: #### C BCD, BASIC #### [address] [address] Bilirubin [Mass or moles/Vol] 2.9 mg/dL High 0.2-1.2 [facility] Comment on above: Performed By: #### C BCD, BASIC #### [address] [address] Calcium [Mass/Vol] 9.6 mg/dL Normal 8.4-10.2 [facility] Comment on above: Performed By: #### C BCD, BASIC #### [address] [address] CO2 [Moles/Vol] 25.0 mm/Hg Normal 22.0-30.0 [facility] Comment on above: Performed By: #### C BCD, BASIC #### [address] [address] Creatinine [Mass/Vol] 0.58 mg/dL Low 0.80-1.50 [facility] Comment on above: Performed By: #### C BCD, BASIC #### [address] [address] GFR/1.73 sq M.predicted (S/P/Bld) [Vol rate/Area] 154 mL/min Normal >60 [facility] Comment on above: Result Comment: Refe rence [...] OR very young -Races other than or -Salvadorean -People with acute illnesses, amputations, or acute kidney failure. Estimated GFR should be interpreted in clinical context and an alternative method such as a timed urine collection for creatinine clearance used to verify questionable results. (Ref. National Kid[employer] Foundation 2015) Performed By: #### C BCD, BASIC #### [address] [address] Glucose [Mass/Vol] 105 mg/dL High 70-100 [facility] Comment on above: Performed By: #### C BCD, BASIC #### [address] [address] Potassium [Moles/Vol] 4.0 mmol/L Normal [facility] Comment on above: Result Comment: 04-13 Performed By: #### C AURORA, BASIC #### [address] [address] Protein [Mass/Vol] 7.0 g/dL Normal 6.0-8.2 [facility] Comment on above: Performed By: #### C BCSusan, BASIC #### [address] [address] Urea nitrogen/Creatinine [Mass ratio] 11 mg/dL Normal 7-22 [facility] Comment on above: Performed By: #### C AURORA, BASIC #### [address] [address] Potassium [Moles/Vol] 3.8 mmol/L Normal 3.5-5.0 [facility] Comment on above: Performed By: #### Kelly SIMON, BASIC #### [address] [address] Chloride [Moles/Vol] 110 mmol/L Normal 100-110 [facility] Comment on above: Performed By: #### C BCSusan, BASIC #### [address] [address] Sodium [Moles/Vol] 139 mmol/L Normal 136-145 [facility] Comment on above: Performed By: #### C AURORA, BASIC #### [address] [address] LIPASEon 12-07-2023 Lipase [Catalytic activity/Vol] 64 U/L Normal 23-300 [facility] Comment on above: Performed By: #### C BCD, BASIC #### [address] [address] Laboratory - Chemistry and C hemistry - challengeon 12-07-2023 Albumin [Mass/Vol] 4.0 g/dL 3.5 - 5.0 g/dL [facility] ALP [Catalytic activity/Vol] 88 U/L 38 - 126 U/L [facility] ALT [Catalytic activity/Vol] 28 U/L 21 - 72 U/L [facility] Anion gap [Moles/Vol] 4.0 mmol/L [facility] Comment on above: 7-16 AST [Catalytic activity/Vol] 38 U/L 17 - 59 U/L [facility] Bilirubin [Mass or moles/Vol] 2.9 mg/dL High 0.2 - 1.2 mg/dL [facility] Calcium [Mass/Vol] 9.6 mg/dL 8.4 - 10. 2 mg/dL [facility] Chloride [Moles/Vol] 110 mmol/L 100 - 1 10 mmol/L [facility] CO2 [Moles/Vol] 25.0 mmol/L [facility] Creatinine [Mass/Vol] 0.58 mg/dL Low 0.80 - 1.50 mg/dL [facility] GFR/1.73 sq M.predicted (S/P/Bld) [Vol rate/Area] 154 mL/min - PINF [facility] Comment on above: Reference Range: 59 to [...] OR very young -Races other than or -Salvadorean -People with acute illnesses, amputations, or acute kidney failure. Estimated GFR should be interpreted in clinical context and an alternative method such as a timed urine collection for creatinine clearance used to verify questionable results. (Ref. National Kidney Foundation 2015) Glucose [Mass/Vol] 105 mg/dL High 70 - 100 mg/dL [facility] Lipase [Catalytic activity/Vol] 64 U/L 23 - 300 U/L [facility] Magnesium [Mass/Vol] 1.9 mg/dL 1.7 - 2 .2 mg/dL [facility] Phosphate [Mass/Vol] 3.1 mg/dL 2.5 - 4 .6 mg/dL [facility] Potassium [Moles/Vol] 3.8 mmol/L 3.5 - 5.0 mmol/L [facility] Protein [Mass/Vol] 7.0 g/dL 6.0 - 8.2 g/dL [facility] Sodium [Moles/Vol] 139 mmol/L 136 - 145 mmol/L [facility] Urea nitrogen/Creatinine [Mass ratio] 11 mg/dL 7 - 22 mg/dL [facility] Laboratory - Hematology and Cell countson 12-07-2023 Basophils (Bld) [#/Vol] 0.04 10*3/uL [facility] Basophils/100 WBC (Bld) 0.6 % 0.0 - 2.0 % [facility] Eosinophils (Bld) [#/Vol] 0.12 10*3/uL 0.00 - 0.50 10*3/uL [facility] Eosinophils/100 WBC (Bld) 1.7 % 0.0 - 4.0 % [facility] Erythrocyte distribution width (RBC) [Ratio] 13.5 % 11.4 - 14.4 % [facility] Hematocrit (Bld) [Volume fraction] 41.4 % 34.3 - 53.1 % [facility] Hemoglobin (Bld) [Mass/Vol] 13.7 g/dL 11.4 - 17.7 g/dL [facility] Lymphocytes (Bld) [#/Vol] 1.83 10*3/uL 1.00 - 4.80 10*3/uL [facility] MCH (RBC) [Entitic mass] 31.6 pg 26.2 - 32.7 pg [facility] MCHC (RBC) [Mass/Vol] 33.1 g/dL 31.6 - 35.0 g/dL [facility] MCV (RBC) [Entitic vol] 95.6 fL 81.6 - 95.6 fL [facility] Monocytes (Bld) [#/Vol] 0.40 10*3/uL 0.20 - 1.20 10*3/uL [facility] Monocytes/100 WBC (Bld) 5.6 % 5.0 - 12.0 % [facility] Neutrophils (Bld) [#/Vol] 4.73 10*3/uL 2.00 - 7.50 10*3/uL [facility] Nucleated RBC/100 WBC (Bld) [Ratio] 0.0 % [facility] Platelet mean volume (Bld) [Entitic vol] 8.9 fL 8.9 - 11.5 fL [facility] Platelets (Bld) [#/Vol] 186 10*3/uL 150 - 375 10*3/uL [facility] RBC (Bld) [#/Vol] 4.33 10*6/uL 3.59 - 6.3 2 10*6/uL [facility] Segmented neutrophils/100 WBC (Bld) 66.2 % High 36.0 - 66.0 % [facility] Variant lymphocytes Auto Ql (Bld) 25.6 % 24.0 - 44.0 % [facility] WBC (Bld) [#/Vol] 7.14 10*3/uL 3.12 - 10. 36 10*3/uL [facility] MAGNESIUMon 12-07-2023 Magnesium [Mass/Vol] 1.9 mg/dL Normal 1.7-2.2 [facility] Comment on above: Performed By: #### C BCD, BASIC #### [address] [address] No Panel Informationon 12-06 Interpretation and review of laboratory results Abnormal [facility] Interpretation and review of laboratory results Abnormal [facility] RBC, NUCLEATED, ABSOLUTE 0.00 0.00 - 0.50 [facility] PHOSPHORUSon 12-07-2023 Phosphate [Mass/Vol] 3.1 mg/dL Normal 2.5-4.6 [facility] Comment on above: Performed By: #### C BCD, BASIC #### [address] [address] ALCOHOL MEDICALon 12-06-2023 Ethanol [Mass/Vol] 100 mg/dL Normal <10 [facility] Comment on above: Result Comment: Effe ctive 12-19-08 new methodology and new instrumentation: lower reportable range is 10 mg/dl. [place] legal limit of intoxication is 80 mg/dl or 0.08 g/dl. [facility] REPORTS OUT IN MG/DL Performed By: #### B ASIC, MAG, LIPA #### [address] [address] BASIC METABOLIC PANELon Calcium [Mass/Vol] 9.0 mg/dL Normal 8.4-10.2 [facility] Comment on above: Performed By: #### B ASIC, MAG, LIPA #### [address] [address] CO2 [Moles/Vol] 23.0 mm/Hg Normal 22.0-30.0 [facility] Comment on above: Performed By: #### B ASIC, MAG, LIPA #### [address] [address] Glucose [Mass/Vol] 107 mg/dL High 70-100 [facility] Comment on above: Performed By: #### B ASIC, MAG, LIPA #### [address] [address] Potassium [Moles/Vol] 6.8 mmol/L [facility] Comment on above: Result Comment: 7-16 Performed By: #### B ASIC, MAG, LIPA #### [address] [address] Creatinine [Mass/Vol] 0.69 mg/dL Low 0.80-1.50 [facility] Comment on above: Performed By: #### B ASIC, MAG, LIPA #### [address] [address] GFR/1.73 sq M.predicted (S/P/Bld) [Vol rate/Area] 126 mL/min Normal >60 [facility] Comment on above: Result Comment: Refe rence [...] OR very young -Races other than or -Salvadorean -People with acute illnesses, amputations, or acute kidney failure. Estimated GFR should be interpreted in clinical context and an alternative method such as a timed urine collection for creatinine clearance used to verify questionable results. (Ref. National Kidney Foundation 2015) Performed By: #### B ASIC, MAG, LIPA #### [address] [address] Urea nitrogen/Creatinine [Mass ratio] 17 mg/dL Normal 7- [facility] Comment on above: Performed By: #### B ASIC, MAG, LIPA #### [address] [address] Chloride [Moles/Vol] 111 mmol/L High 100-110 [facility] Comment on above: Performed By: #### B ASIC, MAG, LIPA #### [address] [address] Potassium [Moles/Vol] 3.6 mmol/L Normal 3.5-5.0 [facility] Comment on above: Performed By: #### B ASIC, MAG, LIPA #### [address] [address] Sodium [Moles/Vol] 141 mmol/L Normal 136-145 [facility] Comment on above: Performed By: #### B ASIC, MAG, LIPA #### [address] [address] CBC WITH DIFFERENTIALon 03-0 -2023 Basophils (Bld) [#/Vol] 0.07 10*3/uL Normal 0.00-0.20 [facility] Comment on above: Performed By: #### B ASIC, MAG, LIPA #### [address] [address] Basophils/100 WBC (Bld) 0.4 % Normal 0.0-2.0 [facility] Comment on above: Performed By: #### B ASIC, MAG, LIPA #### [address] [address] Eosinophils (Bld) [#/Vol] 0.03 10*3/uL Normal 0.00-0.50 [facility] Comment on above: Performed By: #### B ASIC, MAG, LIPA #### [address] [address] Eosinophils/100 WBC (Bld) 0.2 % Normal 0.0-4.0 [facility] Comment on above: Performed By: #### B ASIC, MAG, LIPA #### [address] [address] Erythrocyte distribution width (RBC) [Ratio] 13.5 % Normal 11.4-14.4 [facility] Comment on above: Performed By: #### B ASIC, MAG, LIPA #### [address] [address] Hematocrit (Bld) [Volume fraction] 46.7 % Normal 34.3-53.1 [facility] Comment on above: Performed By: #### B ASIC, MAG, LIPA #### [address] [address] Hemoglobin (Bld) [Mass/Vol] 15.7 g/dL Normal 11.4-17.7 [facility] Comment on above: Performed By: #### B ASIC, MAG, LIPA #### [address] [address] Lymphocytes (Bld) [#/Vol] 1.40 10*3/uL Normal 1.00-4.80 [facility] Comment on above: Performed By: #### B ASIC, MAG, LIPA #### [address] [address] MCH (RBC) [Entitic mass] 31.6 pg Normal 26.2-32.7 [facility] Comment on above: Performed By: #### B ASIC, MAG, LIPA #### [address] [address] MCHC (RBC) [Mass/Vol] 33.6 g/dL Normal 31.6-35.0 [facility] Comment on above: Performed By: #### B ASIC, MAG, LIPA #### [address] [address] MCV (RBC) [Entitic vol] 94.0 fL Normal 81.6-95.6 [facility] Comment on above: Performed By: #### B ASIC, MAG, LIPA #### [address] [address] Monocytes (Bld) [#/Vol] 0.61 10*3/uL Normal 0.20-1.20 [facility] Comment on above: Performed By: #### B ASIC, MAG, LIPA #### [address] [address] Monocytes/100 WBC (Bld) 3.7 % Low 5.0-12.0 [facility] Comment on above: Performed By: #### B ASIC, MAG, LIPA #### [address] [address] Neutrophils (Bld) [#/Vol] 14.49 10*3/uL High 2.00-7.50 [facility] Comment on above: Performed By: #### B ASIC, MAG, LIPA #### [address] [address] NRBC COUNT 0.00 Normal 0.00-0.50 [facility] Comment on above: Performed By: #### B ASIC MAG, LIPA #### [address] [address] Nucleated RBC/100 WBC (Bld) [Ratio] 0.0 % Normal [facility] Comment on above: Performed By: #### B ASIC, MAG, LIPA #### [address] [address] Platelet mean volume (Bld) [Entitic vol] 8.6 fL Low 8.9-11.5 [facility] Comment on above: Performed By: #### B BOBBY MAG, LIPA #### [address] [address] Platelets (Bld) [#/Vol] 300 10*3/uL Normal 150-375 [facility] Comment on above: Performed By: #### B ASIC MAG, LIPA #### [address] [address] RBC (Bld) [#/Vol] 4.97 10*6/uL Normal 3.59-6.32 [facility] Comment on above: Performed By: #### B ASIC, MAG, LIPA #### [address] [address] Segmented neutrophils/100 WBC (Bld) 86.9 % High 36.0-66.0 [facility] Comment on above: Performed By: #### B ASIC, MAG, LIPA #### [address] [address] Variant lymphocytes Auto Ql (Bld) 8.4 % Low 24.0-44.0 [facility] Comment on above: Performed By: #### B ASIC, MAG, LIPA #### [address] [address] WBC (Bld) [#/Vol] 16.67 10*3/uL High 3.12-10.36 [facility] Comment on above: Performed By: #### B ASIC, MAG, LIPA #### [address] [address] COMPREHENSIVE METABOLIC PANE [place] 12-06-2023 CO2 [Moles/Vol] 11.0 mm/Hg Low 22.0-30.0 [facility] Comment on above: Performed By: #### B ASIC, MAG, LIPA #### [address] [address] Albumin [Mass/Vol] 4.6 g/dL Normal 3.5-5.0 [facility] Comment on above: Performed By: #### B ASIC, MAG, LIPA #### [address] [address] ALP [Catalytic activity/Vol] 120 U/L Normal 38-126 [facility] Comment on above: Performed By: #### B ASIC, MAG, LIPA #### [address] [address] ALT [Catalytic activity/Vol] 35 U/L Normal 21-72 [facility] Comment on above: Performed By: #### B ASIC, MAG, LIPA #### [address] [address] AST [Catalytic activity/Vol] 45 U/L Normal 17-59 [facility] Comment on above: Performed By: #### B ASIC, MAG, LIPA #### [address] [address] Bilirubin [Mass or moles/Vol] 2.1 mg/dL High 0.2-1.2 [facility] Comment on above: Performed By: #### B ASIC, MAG, LIPA #### [address] [address] Calcium [Mass/Vol] 10.2 mg/dL Normal 8.4-10.2 [facility] Comment on above: Performed By: #### B ASIC, MAG, LIPA #### [address] [address] Glucose [Mass/Vol] 116 mg/dL High 70-100 [facility] Comment on above: Performed By: #### B ASIC, MAG, LIPA #### [address] [address] Potassium [Moles/Vol] 22.4 mmol/L Normal [facility] Comment on above: Result Comment: 7-16 Performed By: #### B ASIC, MAG, LIPA #### [address] [address] Protein [Mass/Vol] 8.0 g/dL Normal 6.0-8.2 [facility] Comment on above: Performed By: #### B ASIC, MAG, LIPA #### [address] [address] Creatinine [Mass/Vol] 1.14 mg/dL Normal 0.80-1.50 [facility] Comment on above: Performed By: #### B ASIC, MAG, LIPA #### [address] [address] GFR/1.73 sq M.predicted (S/P/Bld) [Vol rate/Area] 71 mL/min Normal >60 [facility] Comment on above: Result Comment: Refe rence [...] OR very young -Races other than or -Salvadorean -People with acute illnesses, amputations, or acute kidney failure. Estimated GFR should be interpreted in clinical context and an alternative method such as a timed urine collection for creatinine clearance used to verify questionable results. (Ref. National Kid[employer] Foundation 2015) Performed By: #### B ASIC, MAG, LIPA #### [address] [address] Urea nitrogen/Creatinine [Mass ratio] 17 mg/dL Normal 7-22 [facility] Comment on above: Performed By: #### B ASIC, MAG, LIPA #### [address] [address] Chloride [Moles/Vol] 109 mmol/L Normal 100-110 [facility] Comment on above: Performed By: #### B ASIC, MAG, LIPA #### [address] [address] Potassium [Moles/Vol] 3.4 mmol/L Low 3.5-5.0 [facility] Comment on above: Performed By: #### B ASIC, MAG, LIPA #### [address] [address] Sodium [Moles/Vol] 142 mmol/L Normal 136-145 [facility] Comment on above: Performed By: #### B ASIC, MAG, LIPA #### [address] [address] HA1Con 12-06-2023 HbA1c (Bld) [Mass fraction] 5.2 % Normal 4.0-7.0 [facility] Comment on above: Order Comment: can d raw lactic at 1300 Result Comment: Hemo globin A1c - Glycohemoglobin) INTERPRETATION: Non-diabetics % range: 4.0 - 6.0 % Controlled diabetics % range: < 7.0 % Uncontrolled diabetics % range: > 9.0 % Performed By: #### E ZENIA #### [address] [address] LACTIC ACIDon 12-06-2023 Lactate [Moles/Vol] 0.7 mmol/L Normal 0.7-2.0 [facility] Comment on above: Order Comment: can d raw lactic at 1300 Performed By: #### E ZENIA #### [address] [address] LIPASEon 12-06-2023 Lipase [Catalytic activity/Vol] 86 U/L Normal 23-300 [facility] Comment on above: Performed By: #### B ASIC, MAG, LIPA #### [address] [address] Lipase [Catalytic activity/Vol] 476 U/L High 23-300 [facility] Comment on above: Performed By: #### B ASIC, MAG, LIPA #### [address] [address] Laboratory - Chemistry and C hemistry - challengeon 12-06-2023 Magnesium [Mass/Vol] 2.0 mg/dL 1.7 - 2 .2 mg/dL [facility] Base excess Calc (BldV) [Moles/Vol] 2.2 mmol/L [facility] Comment on above: Reference ranges hav e not been established for venous gases. Carboxyhemoglobin (BldV) [Mass fraction] 15.0 g/dL [facility] CO2 (BldV) [Partial pressure] 21.1 mmol/L [facility] CO2 [Moles/Vol] 30.9 mmol/L mmHg [facility] Gas and Carbon monoxide panel (BldV) 3.8 [facility] HCO3 standard (BldV) [Moles/Vol] 24.4 mmol/L [facility] Methemoglobin (BldV) [Pure mass fraction] 0.3 [facility] Oxygen (BldV) [Partial pressure] 60.6 mm[Hg] mmHg [facility] Oxyhemoglobin (BldV) [Mass fraction] 89.6 [facility] pH (BldV) 7.507 [pH] [facility] SaO2% (BldCoV) [Mass fraction] 93.4 [facility] Anion gap [Moles/Vol] 6.8 mmol/L [facility] Comment on above: 7-16 Calcium [Mass/Vol] 9.0 mg/dL 8.4 - 10. 2 mg/dL [facility] Chloride [Moles/Vol] 111 mmol/L High 100 - 1 10 mmol/L [facility] CO2 [Moles/Vol] 23.0 mmol/L [facility] Creatinine [Mass/Vol] 0.69 mg/dL Low 0.80 - 1.50 mg/dL [facility] GFR/1.73 sq M.predicted (S/P/Bld) [Vol rate/Area] 126 mL/min - PINF [facility] Comment on above: Reference Range: 59 to [...] OR very young -Races other than or -Salvadorean -People with acute illnesses, amputations, or acute kidney failure. Estimated GFR should be interpreted in clinical context and an alternative method such as a timed urine collection for creatinine clearance used to verify questionable results. (Ref. National Kidney Foundation 2015) Glucose [Mass/Vol] 107 mg/dL High 70 - 100 mg/dL [facility] Lipase [Catalytic activity/Vol] 86 U/L 23 - 300 U/L [facility] Magnesium [Mass/Vol] 1.6 mg/dL Low 1.7 - 2 .2 mg/dL [facility] Potassium [Moles/Vol] 3.6 mmol/L 3.5 - 5.0 mmol/L [facility] Sodium [Moles/Vol] 141 mmol/L 136 - 145 mmol/L [facility] Urea nitrogen/Creatinine [Mass ratio] 17 mg/dL 7 - 22 mg/dL [facility] Lactate [Moles/Vol] 0.7 mmol/L 0.7 - 2. 0 mmol/L [facility] Magnesium [Mass/Vol] 1.7 mg/dL 1.7 - 2 .2 mg/dL [facility] Troponin I.cardiac [Mass/Vol] ng/mL 0.012 - 0.120 ng/mL [facility] Comment on above: REFERENCE RANGE IS 0.012 - 0.120 ng/ml cTnI - The cutoff of 0.120 ng/ml is recommended for diagnosis of AMI, yielding optimal performance of 95% sensitivity and 93% specificity. Troponin I.cardiac [Mass/Vol] 0.014 ng/mL 0.012 - 0.120 ng/mL [facility] Comment on above: REFERENCE RANGE IS 0.012 - 0.120 ng/ml cTnI - The cutoff of 0.120 ng/ml is recommended for diagnosis of AMI, yielding optimal performance of 95% sensitivity and 93% specificity. Albumin [Mass/Vol] 4.6 g/dL 3.5 - 5.0 g/dL [facility] ALP [Catalytic activity/Vol] 120 U/L 38 - 126 U/L [facility] ALT [Catalytic activity/Vol] 35 U/L 21 - 72 U/L [facility] Anion gap [Moles/Vol] 22.4 mmol/L [facility] Comment on above: 7-16 AST [Catalytic activity/Vol] 45 U/L 17 - 59 U/L [facility] Bilirubin [Mass or moles/Vol] 2.1 mg/dL High 0.2 - 1.2 mg/dL [facility] Calcium [Mass/Vol] 10.2 mg/dL 8.4 - 10. 2 mg/dL [facility] Chloride [Moles/Vol] 109 mmol/L 100 - 1 10 mmol/L [facility] CO2 [Moles/Vol] 11.0 mmol/L Low [facility] Creatinine [Mass/Vol] 1.14 mg/dL 0.80 - 1.50 mg/dL [facility] GFR/1.73 sq M.predicted (S/P/Bld) [Vol rate/Area] 71 mL/min - PINF [facility] Comment on above: Reference Range: 59 to [...] OR very young -Races other than or -Salvadorean -People with acute illnesses, amputations, or acute kidney failure. Estimated GFR should be interpreted in clinical context and an alternative method such as a timed urine collection for creatinine clearance used to verify questionable results. (Ref. National Kidney Foundation 2015) Glucose [Mass/Vol] 116 mg/dL High 70 - 100 mg/dL [facility] Lipase [Catalytic activity/Vol] 476 U/L High 23 - 300 U/L [facility] Potassium [Moles/Vol] 3.4 mmol/L Low 3.5 - 5.0 mmol/L [facility] Protein [Mass/Vol] 8.0 g/dL 6.0 - 8.2 g/dL [facility] Sodium [Moles/Vol] 142 mmol/L 136 - 145 mmol/L [facility] Urea nitrogen/Creatinine [Mass ratio] 17 mg/dL 7 - 22 mg/dL [facility] Laboratory - Drug toxicology on 12-06-2023 Ethanol [Mass/Vol] 100 mg/dL NINF - 10 mg/dL [facility] Comment on above: Effective 12-19-08 ne w methodology and new instrumentation: lower reportable range is 10 mg/dl. [place] legal limit of intoxication is 80 mg/dl or 0.08 g/dl. [facility] REPORTS OUT IN MG/DL Laboratory - Hematology and Cell countson 12-06-2023 Deoxyhemoglobin (BldV) [Mass fraction] 6.3 [facility] HbA1c (Bld) [Mass fraction] 5.2 % 4.0 - 7.0 % [facility] Comment on above: Hemoglobin A1c - Gly cohemoglobin) INTERPRETATION: Non-diabetics % range: 4.0 - 6.0 % Controlled diabetics % range: < 7.0 % Uncontrolled diabetics % range: > 9.0 % Basophils (Bld) [#/Vol] 0.07 10*3/uL 0.00 - 0.20 10*3/uL [facility] Basophils/100 WBC (Bld) 0.4 % 0.0 - 2.0 % [facility] Eosinophils (Bld) [#/Vol] 0.03 10*3/uL 0.00 - 0.50 10*3/uL [facility] Eosinophils/100 WBC (Bld) 0.2 % 0.0 - 4.0 % [facility] Erythrocyte distribution width (RBC) [Ratio] 13.5 % 11.4 - 14.4 % [facility] Hematocrit (Bld) [Volume fraction] 46.7 % 34.3 - 53.1 % [facility] Hemoglobin (Bld) [Mass/Vol] 15.7 g/dL 11.4 - 17.7 g/dL [facility] Lymphocytes (Bld) [#/Vol] 1.40 10*3/uL 1.00 - 4.80 10*3/uL [facility] MCH (RBC) [Entitic mass] 31.6 pg 26.2 - 32.7 pg [facility] MCHC (RBC) [Mass/Vol] 33.6 g/dL 31.6 - 35.0 g/dL [facility] MCV (RBC) [Entitic vol] 94.0 fL 81.6 - 95.6 fL [facility] Monocytes (Bld) [#/Vol] 0.61 10*3/uL 0.20 - 1.20 10*3/uL [facility] Monocytes/100 WBC (Bld) 3.7 % Low 5.0 - 12.0 % [facility] Neutrophils (Bld) [#/Vol] 14.49 10*3/uL High 2.00 - 7.50 10*3/uL [facility] Nucleated RBC/100 WBC (Bld) [Ratio] 0.0 % [facility] Platelet mean volume (Bld) [Entitic vol] 8.6 fL Low 8.9 - 11.5 fL [facility] Platelets (Bld) [#/Vol] 300 10*3/uL 150 - 375 10*3/uL [facility] RBC (Bld) [#/Vol] 4.97 10*6/uL 3.59 - 6.3 2 10*6/uL [facility] Segmented neutrophils/100 WBC (Bld) 86.9 % High 36.0 - 66.0 % [facility] Variant lymphocytes Auto Ql (Bld) 8.4 % Low 24.0 - 44.0 % [facility] WBC (Bld) [#/Vol] 16.67 10*3/uL High 3.12 - 10 .36 10*3/uL [facility] MAGNESIUMon 12-06-2023 Magnesium [Mass/Vol] 2.0 mg/dL Normal 1.7-2.2 [facility] Comment on above: Performed By: #### B ASIC, MAG, LIPA #### [address] [address] Magnesium [Mass/Vol] 1.6 mg/dL Low 1.7-2.2 [facility] Comment on above: Performed By: #### B ASIC, MAG, LIPA #### [address] [address] Magnesium [Mass/Vol] 1.7 mg/dL Normal 1.7-2.2 [facility] Comment on above: Order Comment: can d raw lactic at 1300 Performed By: #### E ZENIA #### [address] [address] No Panel Informationon 12-05 [facility] Interpretation and review of laboratory results Abnormal [facility] Interpretation and review of laboratory results Abnormal [facility] Interpretation and review of laboratory results Abnormal [facility] RBC, NUCLEATED, ABSOLUTE 0.00 0.00 - 0.50 [facility] TROPONIN Ion 12-06-2023 Troponin I.cardiac [Mass/Vol] ng/mL Normal 0.012-0.120 [facility] Comment on above: Result Comment: RE FERENCE RANGE IS 0.012 - 0.120 ng/ml cTnI - The cutoff of 0.120 ng/ml is recommended for diagnosis of AMI, yielding optimal performance of 95% sensitivity and 93% specificity. Performed By: #### E ZENIA #### [address] [address] Troponin I.cardiac [Mass/Vol] 0.014 ng/mL Normal 0.012-0.120 [facility] Comment on above: Result Comment: RE FERENCE RANGE IS 0.012 - 0.120 ng/ml cTnI - The cutoff of 0.120 ng/ml is recommended for diagnosis of AMI, yielding optimal performance of 95% sensitivity and 93% specificity. Performed By: #### B ASIC, MAG, RITA #### [address] [address] VENOUS BLOOD GAS - Malena Base excess Calc (BldV) [Moles/Vol] 2.2 mmol/L [facility] Comment on above: Result Comment: Refe rence ranges have not been established for venous gases. Performed By: #### V BG #### [address] [address] Carboxyhemoglobin (BldV) [Mass fraction] 15.0 g/dL [facility] Comment on above: Performed By: #### V BG #### [address] [address] CO2 (BldV) [Partial pressure] 21.1 mmol/L [facility] Comment on above: Performed By: #### V BG #### [address] [address] CO2 [Moles/Vol] 30.9 mmol/L [facility] Comment on above: Performed By: #### V BG #### [address] [address] Deoxyhemoglobin (BldV) [Mass fraction] 6.3 [facility] Comment on above: Performed By: #### V BG #### [address] [address] Gas and Carbon monoxide panel (BldV) 3.8 [facility] Comment on above: Performed By: #### V BG #### [address] [address] HCO3 standard (BldV) [Moles/Vol] 24.4 mmol/L [facility] Comment on above: Performed By: #### V BG #### [address] [address] Methemoglobin (BldV) [Pure mass fraction] 0.3 [facility] Comment on above: Performed By: #### V BG #### [address] [address] Oxygen (BldV) [Partial pressure] 60.6 mm[Hg] [facility] Comment on above: Performed By: #### V BG #### [address] [address] Oxyhemoglobin (BldV) [Mass fraction] 89.6 [facility] Comment on above: Performed By: #### V BG #### [address] [address] pH (BldV) 7.507 [pH] [facility] Comment on above: Performed By: #### V BG #### [address] [address] SaO2% (BldCoV) [Mass fraction] 93.4 [facility] Comment on above: Performed By: #### V BG #### [address] [address] VITAMIN D, 25 HYDROXYon 03-0 25-hydroxyvitamin D [Mass/Vol] 29.1 ng/mL Low 30.0-100.0 [facility] Comment on above: Order Comment: Add o n to a.m. labs Result Comment: Diana min D deficiency has been defined by the [place] [employer] and an Endocrine Society practice guideline as a level of serum 25-OH vitamin D less than 20 ng/mL (1,2). The Endocrine Society went on to further define vitamin D insufficiency as a level between 21 and 29 ng/mL (2). 1. IOM ([place] [employer]). 2010. Dietary reference intakes for calcium and D. [place]: The National Academies Press. 2. Rajwinder MF, Juliana [place], Bj MOHR, et al. Evaluation, treatment, and prevention of vitamin D deficiency: an Endocrine Society clinical practice guideline. JCEM. 2010; 96(7):1911-30. Performed at: , [facility], [id number] Zain Harmon, PhD, Phone: [phone] Performed By: #### E ZENIA #### [address] [address] BASIC METABOLIC PANELon 03-0 Calcium [Mass/Vol] 9.8 mg/dL Normal 8.4-10.2 [facility] Comment on above: Performed By: #### C BCD, BASIC #### [address] [address] CO2 [Moles/Vol] 25.0 mm/Hg Normal 22.0-30.0 [facility] Comment on above: Performed By: #### C BCD, BASIC #### [address] [address] Creatinine [Mass/Vol] 0.59 mg/dL Low 0.80-1.50 [facility] Comment on above: Performed By: #### C BCD, BASIC #### [address] [address] GFR/1.73 sq M.predicted (S/P/Bld) [Vol rate/Area] 151 mL/min Normal >60 [facility] Comment on above: Result Comment: Refe rence [...] OR very young -Races other than or -Salvadorean -People with acute illnesses, amputations, or acute kidney failure. Estimated GFR should be interpreted in clinical context and an alternative method such as a timed urine collection for creatinine clearance used to verify questionable results. (Ref. National Kidney Foundation 2015) Performed By: #### C BCD, BASIC #### [address] [address] Glucose [Mass/Vol] 90 mg/dL Normal 70-100 [facility] Comment on above: Performed By: #### C BCD, BASIC #### [address] [address] Potassium [Moles/Vol] 5.9 mmol/L [facility] Comment on above: Result Comment: 7-16 Performed By: #### C BCD, BASIC #### [address] [address] Urea nitrogen/Creatinine [Mass ratio] 14 mg/dL Normal 7-22 [facility] Comment on above: Performed By: #### C BCD, BASIC #### [address] [address] Chloride [Moles/Vol] 109 mmol/L Normal 100-110 [facility] Comment on above: Performed By: #### C BCD, BASIC #### [address] [address] Potassium [Moles/Vol] 3.5 mmol/L Normal 3.5-5.0 [facility] Comment on above: Performed By: #### C BCSusan, BASIC #### [address] [address] Sodium [Moles/Vol] 139 mmol/L Normal 136-145 [facility] Comment on above: Performed By: #### C BCSusan, BASIC #### [address] [address] CBC WITH DIFFERENTIALon 03-0 -2023 Basophils (Bld) [#/Vol] 0.05 10*3/uL Normal 0.00-0.20 [facility] Comment on above: Performed By: #### C BCSusan, BASIC #### [address] [address] Basophils/100 WBC (Bld) 0.6 % Normal 0.0-2.0 [facility] Comment on above: Performed By: #### C BCSusan, BASIC #### [address] [address] Eosinophils (Bld) [#/Vol] 0.11 10*3/uL Normal 0.00-0.50 [facility] Comment on above: Performed By: #### C BCSusan, BASIC #### [address] [address] Eosinophils/100 WBC (Bld) 1.3 % Normal 0.0-4.0 [facility] Comment on above: Performed By: #### C BCD, BASIC #### [address] [address] Erythrocyte distribution width (RBC) [Ratio] 13.5 % Normal 11.4-14.4 [facility] Comment on above: Performed By: #### C BCD, BASIC #### [address] [address] Hematocrit (Bld) [Volume fraction] 43.6 % Normal 34.3-53.1 [facility] Comment on above: Performed By: #### C BCD, BASIC #### [address] [address] Hemoglobin (Bld) [Mass/Vol] 14.7 g/dL Normal 11.4-17.7 [facility] Comment on above: Performed By: #### C BCD, BASIC #### [address] [address] Lymphocytes (Bld) [#/Vol] 1.44 10*3/uL Normal 1.00-4.80 [facility] Comment on above: Performed By: #### C BCD, BASIC #### [address] [address] MCH (RBC) [Entitic mass] 31.5 pg Normal 26.2-32.7 [facility] Comment on above: Performed By: #### C BCD, BASIC #### [address] [address] MCHC (RBC) [Mass/Vol] 33.7 g/dL Normal 31.6-35.0 [facility] Comment on above: Performed By: #### C BCD, BASIC #### [address] [address] MCV (RBC) [Entitic vol] 93.6 fL Normal 81.6-95.6 [facility] Comment on above: Performed By: #### C BCD, BASIC #### [address] [address] Monocytes (Bld) [#/Vol] 0.65 10*3/uL Normal 0.20-1.20 [facility] Comment on above: Performed By: #### C BCD, BASIC #### [address] [address] Monocytes/100 WBC (Bld) 7.8 % Normal 5.0-12.0 [facility] Comment on above: Performed By: #### C BCD, BASIC #### [address] [address] Neutrophils (Bld) [#/Vol] 6.02 10*3/uL Normal 2.00-7.50 [facility] Comment on above: Performed By: #### Kelly BCSusan, BASIC #### [address] [address] NRBC COUNT 0.00 Normal 0.00-0.50 [facility] Comment on above: Performed By: #### Kelly SIMON, BASIC #### [address] [address] Nucleated RBC/100 WBC (Bld) [Ratio] 0.0 % Normal [facility] Comment on above: Performed By: #### Kelly SIMON, BASIC #### [address] [address] Platelet mean volume (Bld) [Entitic vol] 8.7 fL Low 8.9-11.5 [facility] Comment on above: Performed By: #### Kelly SIMON, BASIC #### [address] [address] Platelets (Bld) [#/Vol] 235 10*3/uL Normal 150-375 [facility] Comment on above: Performed By: #### Kelly SIMNO, BASIC #### [address] [address] RBC (Bld) [#/Vol] 4.66 10*6/uL Normal 3.59-6.32 [facility] Comment on above: Performed By: #### Kelly BCSusan, BASIC #### [address] [address] Segmented neutrophils/100 WBC (Bld) 72.6 % High 36.0-66.0 [facility] Comment on above: Performed By: #### Kelly BCSusan, BASIC #### [address] [address] Variant lymphocytes Auto Ql (Bld) 17.3 % Low 24.0-44.0 [facility] Comment on above: Performed By: #### Kelly BCSusan, BASIC #### [address] [address] WBC (Bld) [#/Vol] 8.30 10*3/uL Normal 3.12-10.36 [facility] Comment on above: Performed By: #### C BCD, BASIC #### [address] [address] Laboratory - Chemistry and C hemistry - challengeon 12-05-2023 Phosphate [Mass/Vol] 2.9 mg/dL 2.5 - 4 .6 mg/dL [facility] Magnesium [Mass/Vol] 1.8 mg/dL 1.7 - 2 .2 mg/dL [facility] Anion gap [Moles/Vol] 5.9 mmol/L [facility] Comment on above: 7-16 Calcium [Mass/Vol] 9.8 mg/dL 8.4 - 10. 2 mg/dL [facility] Chloride [Moles/Vol] 109 mmol/L 100 - 1 10 mmol/L [facility] CO2 [Moles/Vol] 25.0 mmol/L [facility] Creatinine [Mass/Vol] 0.59 mg/dL Low 0.80 - 1.50 mg/dL [facility] GFR/1.73 sq M.predicted (S/P/Bld) [Vol rate/Area] 151 mL/min - [facility] Comment on above: Reference Range: 59 [...] OR very young -Races other than or -Salvadorean -People with acute illnesses, amputations, or acute kidney failure. Estimated GFR should be interpreted in clinical context and an alternative method such as a timed urine collection for creatinine clearance used to verify questionable results. (Ref. National Kidney Foundation 2015) Glucose [Mass/Vol] 90 mg/dL 70 - 100 mg/dL [facility] Potassium [Moles/Vol] 3.5 mmol/L 3.5 - 5.0 mmol/L [facility] Sodium [Moles/Vol] 139 mmol/L 136 - 145 mmol/L [facility] Urea nitrogen/Creatinine [Mass ratio] 14 mg/dL 7 - 22 mg/dL [facility] Laboratory - Hematology and Cell countson 12-05-2023 Basophils (Bld) [#/Vol] 0.05 10*3/uL 0.00 - 0.20 10*3/uL [facility] Basophils/100 WBC (Bld) 0.6 % 0.0 - 2.0 % [facility] Eosinophils (Bld) [#/Vol] 0.11 10*3/uL 0.00 - 0.50 10*3/uL [facility] Eosinophils/100 WBC (Bld) 1.3 % 0.0 - 4.0 % [facility] Erythrocyte distribution width (RBC) [Ratio] 13.5 % 11.4 - 14.4 % [facility] Hematocrit (Bld) [Volume fraction] 43.6 % 34.3 - 53.1 % [facility] Hemoglobin (Bld) [Mass/Vol] 14.7 g/dL 11.4 - 17.7 g/dL [facility] Lymphocytes (Bld) [#/Vol] 1.44 10*3/uL 1.00 - 4.80 10*3/uL [facility] MCH (RBC) [Entitic mass] 31.5 pg 26.2 - 32.7 pg [facility] MCHC (RBC) [Mass/Vol] 33.7 g/dL 31.6 - 35.0 g/dL [facility] MCV (RBC) [Entitic vol] 93.6 fL 81.6 - 95.6 fL [facility] Monocytes (Bld) [#/Vol] 0.65 10*3/uL 0.20 - 1.20 10*3/uL [facility] Monocytes/100 WBC (Bld) 7.8 % 5.0 - 12.0 % [facility] Neutrophils (Bld) [#/Vol] 6.02 10*3/uL 2.00 - 7.50 10*3/uL [facility] Nucleated RBC/100 WBC (Bld) [Ratio] 0.0 % [facility] Platelet mean volume (Bld) [Entitic vol] 8.7 fL Low 8.9 - 11.5 fL [facility] Platelets (Bld) [#/Vol] 235 10*3/uL 150 - 375 10*3/uL [facility] RBC (Bld) [#/Vol] 4.66 10*6/uL 3.59 - 6.3 2 10*6/uL [facility] Segmented neutrophils/100 WBC (Bld) 72.6 % High 36.0 - 66.0 % [facility] Variant lymphocytes Auto Ql (Bld) 17.3 % Low 24.0 - 44.0 % [facility] WBC (Bld) [#/Vol] 8.30 10*3/uL 3.12 - 10. 36 10*3/uL [facility] MAGNESIUMon 12-05-2023 Magnesium [Mass/Vol] 1.9 mg/dL Normal 1.7-2.2 [facility] Comment on above: Order Comment: OK to add-on Performed By: #### B ASIC, MAG, LIPA #### [address] [address] Magnesium [Mass/Vol] 1.8 mg/dL Normal 1.7-2.2 [facility] Comment on above: Order Comment: January on to a.m. labs Performed By: #### B ASIC, MAG, LIPA #### [address] [address] No Panel Informationon 12-04 [facility] Interpretation and review of laboratory results Abnormal [facility] Interpretation and review of laboratory results Abnormal [facility] RBC, NUCLEATED, ABSOLUTE 0.00 0.00 - 0.50 [facility] PHOSPHORUSon 12-05-2023 Phosphate [Mass/Vol] 2.9 mg/dL Normal 2.5-4.6 [facility] Comment on above: Order Comment: OK to add-on Performed By: #### B ASIC, MAG, LIPA #### [address] [address] CBC WITH DIFFERENTIALon Basophils (Bld) [#/Vol] 0.11 10*3/uL Normal [facility] Comment on above: Performed By: #### C BCD, CMPN, MAG, PHOS, LIPA #### [address] [address] Basophils/100 WBC (Bld) 0.8 % Normal 0.0-2.0 [facility] Comment on above: Performed By: #### C BCD, CMPN, MAG, PHOS, LIPA #### [address] [address] Eosinophils (Bld) [#/Vol] 0.01 10*3/uL Normal 0.00-0.50 [facility] Comment on above: Performed By: #### C BCD, CMPN, MAG, PHOS, LIPA #### [address] [address] Eosinophils/100 WBC (Bld) 0.1 % Normal 0.0-4.0 [facility] Comment on above: Performed By: #### C BCD, CMPN, MAG, PHOS, LIPA #### [address] [address] Erythrocyte distribution width (RBC) [Ratio] 13.9 % Normal 11.4-14.4 [facility] Comment on above: Performed By: #### C BCD, CMPN, MAG, PHOS, LIPA #### [address] [address] Hematocrit (Bld) [Volume fraction] 49.9 % Normal 34.3-53.1 [facility] Comment on above: Performed By: #### C BCD, CMPN, MAG, PHOS, LIPA #### [address] [address] Hemoglobin (Bld) [Mass/Vol] 16.3 g/dL Normal 11.4-17.7 [facility] Comment on above: Performed By: #### C BCD, CMPN, MAG, PHOS, LIPA #### [address] [address] Lymphocytes (Bld) [#/Vol] 1.18 10*3/uL Normal 1.00-4.80 [facility] Comment on above: Performed By: #### C BCD, CMPN, MAG, PHOS, LIPA #### [address] [address] MCH (RBC) [Entitic mass] 31.4 pg Normal 26.2-32.7 [facility] Comment on above: Performed By: #### C BCD, CMPN, MAG, PHOS, LIPA #### [address] [address] MCHC (RBC) [Mass/Vol] 32.7 g/dL Normal 31.6-35.0 [facility] Comment on above: Performed By: #### C BCD, CMPN, MAG, PHOS, LIPA #### [address] [address] MCV (RBC) [Entitic vol] 96.1 fL High 81.6-95.6 [facility] Comment on above: Performed By: #### C BCD, CMPN, MAG, PHOS, LIPA #### [address] [address] Monocytes (Bld) [#/Vol] 0.75 10*3/uL Normal 0.20-1.20 [facility] Comment on above: Performed By: #### C BCD, CMPN, MAG, PHOS, LIPA #### [address] [address] Monocytes/100 WBC (Bld) 5.7 % Normal 5.0-12.0 [facility] Comment on above: Performed By: #### C BCD, CMPN, MAG, PHOS, LIPA #### [address] [address] Neutrophils (Bld) [#/Vol] 10.99 10*3/uL High 2.00-7.50 [facility] Comment on above: Performed By: #### C BCD, CMPN, MAG, PHOS, LIPA #### [address] [address] NRBC COUNT 0.00 Normal 0.00-0.50 [facility] Comment on above: Performed By: #### C BCD, CMPN, MAG, PHOS, LIPA #### [address] [address] Nucleated RBC/100 WBC (Bld) [Ratio] 0.0 % Normal [facility] Comment on above: Performed By: #### C BCD, CMPN, MAG, PHOS, LIPA #### [address] [address] Platelet mean volume (Bld) [Entitic vol] 8.3 fL Low 8.9-11.5 [facility] Comment on above: Performed By: #### C BCD, CMPN, MAG, PHOS, LIPA #### [address] [address] Platelets (Bld) [#/Vol] 306 10*3/uL Normal 150-375 [facility] Comment on above: Performed By: #### C BCD, CMPN, MAG, PHOS, LIPA #### [address] [address] RBC (Bld) [#/Vol] 5.19 10*6/uL Normal 3.59-6.32 [facility] Comment on above: Performed By: #### C BCD, CMPN, MAG, PHOS, LIPA #### [address] [address] Segmented neutrophils/100 WBC (Bld) 84.2 % High 36.0-66.0 [facility] Comment on above: Performed By: #### C BCD, CMPN, MAG, PHOS, LIPA #### [address] [address] Variant lymphocytes Auto Ql (Bld) 9.0 % Low 24.0-44.0 [facility] Comment on above: Performed By: #### C BCD, CMPN, MAG, PHOS, LIPA #### [address] [address] WBC (Bld) [#/Vol] 13.07 10*3/uL High 3.12-10.36 [facility] Comment on above: Performed By: #### C BCD, CMPN, MAG, PHOS, LIPA #### [address] [address] COMPREHENSIVE METABOLIC PANE [place] 12-04-2023 Albumin [Mass/Vol] 5.0 g/dL Normal 3.5-5.0 [facility] Comment on above: Performed By: #### E ZENIA #### [address] [address] ALP [Catalytic activity/Vol] 113 U/L Normal 38-126 [facility] Comment on above: Performed By: #### E ZENIA #### [address] [address] ALT [Catalytic activity/Vol] 44 U/L Normal 21-72 [facility] Comment on above: Performed By: #### E ZENIA #### [address] [address] AST [Catalytic activity/Vol] 51 U/L Normal 17-59 [facility] Comment on above: Performed By: #### E ZENIA #### [address] [address] Bilirubin [Mass or moles/Vol] 2.9 mg/dL High 0.2-1.2 [facility] Comment on above: Performed By: #### E ZENIA #### [address] [address] Calcium [Mass/Vol] 10.1 mg/dL Normal 8.4-10.2 [facility] Comment on above: Performed By: #### E ZENIA #### [address] [address] CO2 [Moles/Vol] 15.0 mm/Hg Low 22.0-30.0 [facility] Comment on above: Performed By: #### E ZENIA #### [address] [address] Creatinine [Mass/Vol] 0.93 mg/dL Normal 0.80-1.50 [facility] Comment on above: Performed By: #### E ZENIA #### [address] [address] GFR/1.73 sq M.predicted (S/P/Bld) [Vol rate/Area] 90 mL/min Normal >60 [facility] Comment on above: Result Comment: Refe rence [...] OR very young -Races other than or -Salvadorean -People with acute illnesses, amputations, or acute kidney failure. Estimated GFR should be interpreted in clinical context and an alternative method such as a timed urine collection for creatinine clearance used to verify questionable results. (Ref. National Kid[employer] Foundation 2015) Performed By: #### E ZENIA #### [address] [address] Glucose [Mass/Vol] 95 mg/dL Normal 70-100 [facility] Comment on above: Performed By: #### E ZENIA #### [address] [address] Potassium [Moles/Vol] 21.3 mmol/L Normal [facility] Comment on above: Result Comment: 04-13 Performed By: #### E ZENIA #### [address] [address] Protein [Mass/Vol] 8.5 g/dL High 6.0-8.2 [facility] Comment on above: Performed By: #### E ZENIA #### [address] [address] Urea nitrogen/Creatinine [Mass ratio] 18 mg/dL Normal 7-22 [facility] Comment on above: Performed By: #### E ZENIA #### [address] [address] Potassium [Moles/Vol] 3.8 mmol/L Normal 3.5-5.0 [facility] Comment on above: Performed By: #### E ZENIA #### [address] [address] Chloride [Moles/Vol] 112 mmol/L High 100-110 [facility] Comment on above: Performed By: #### E ZENIA #### [address] [address] Sodium [Moles/Vol] 148 mmol/L High 136-145 [facility] Comment on above: Performed By: #### E ZENIA #### [address] [address] ECGon 12-04-2023 Electrocardiogram [facility] Test Date: 2023-12-04 Pat Name: ANGELLA FERNANDEZ Department: Room: [facility] Gender: Male [employer] Attendant: : 1970 Requested By: [id number] Order Number: [id number] Kalie MD: Zain Norwood Measurements Intervals Jelm Rate: 117 P: 63 NC: 140 QRS: -16 QRSD: 84 T: 89 QT: 320 QTc: 446 Interpretive Statements Sinus tachycardia with occasional premature ventricular complexes Electronically Signed On 12-04-2023 13:21:41 EST by Zain Norwood Normal [facility] Comment on above: Order Comment: Vet-n o LIPASEon 12-04-2023 Lipase [Catalytic activity/Vol] 57 U/L Normal 23-300 [facility] Comment on above: Performed By: #### E ZENIA #### [facility] [address] [place] [address] Laboratory - Chemistry and C hemistry - challengeon 12-04-2023 Troponin I.cardiac [Mass/Vol] ng/mL 0.012 - 0.120 ng/mL [facility] Comment on above: REFERENCE RANGE IS 0.012 - 0.120 ng/ml cTnI - The cutoff of 0.120 ng/ml is recommended for diagnosis of AMI, yielding optimal performance of 95% sensitivity and 93% specificity. Natriuretic peptide B (Bld) [Mass/Vol] 142.00 pg/mL 0.00 - 900.00 pg/mL [facility] Troponin I.cardiac [Mass/Vol] ng/mL 0.012 - 0.120 ng/mL [facility] Comment on above: REFERENCE RANGE IS 0.012 - 0.120 ng/ml cTnI - The cutoff of 0.120 ng/ml is recommended for diagnosis of AMI, yielding optimal performance of 95% sensitivity and 93% specificity. Albumin [Mass/Vol] 5.0 g/dL 3.5 - 5.0 g/dL [facility] ALP [Catalytic activity/Vol] 113 U/L 38 - 126 U/L [facility] ALT [Catalytic activity/Vol] 44 U/L 21 - 72 U/L [facility] Anion gap [Moles/Vol] 21.3 mmol/L [facility] Comment on above: 04-13 AST [Catalytic activity/Vol] 51 U/L 17 - 59 U/L [facility] Bilirubin [Mass or moles/Vol] 2.9 mg/dL High 0.2 - 1.2 mg/dL [facility] Calcium [Mass/Vol] 10.1 mg/dL 8.4 - 10. 2 mg/dL [facility] Chloride [Moles/Vol] 112 mmol/L High 100 - 1 10 mmol/L [facility] CO2 [Moles/Vol] 15.0 mmol/L Low [facility] Creatinine [Mass/Vol] 0.93 mg/dL 0.80 - 1.50 mg/dL [facility] GFR/1.73 sq M.predicted (S/P/Bld) [Vol rate/Area] 90 mL/min - PINF [facility] Comment on above: Reference Range: 59 to [...] OR very young -Races other than or -Salvadorean -People with acute illnesses, amputations, or acute kidney failure. Estimated GFR should be interpreted in clinical context and an alternative method such as a timed urine collection for creatinine clearance used to verify questionable results. (Ref. National Kidney Foundation 2015) Glucose [Mass/Vol] 95 mg/dL 70 - 100 mg/dL [facility] Lipase [Catalytic activity/Vol] 57 U/L 23 - 300 U/L [facility] Magnesium [Mass/Vol] 1.8 mg/dL 1.7 - 2 .2 mg/dL [facility] Phosphate [Mass/Vol] 4.0 mg/dL 2.5 - 4 .6 mg/dL [facility] Potassium [Moles/Vol] 3.8 mmol/L 3.5 - 5.0 mmol/L [facility] Protein [Mass/Vol] 8.5 g/dL High 6.0 - 8.2 g/dL [facility] Sodium [Moles/Vol] 148 mmol/L High 136 - 145 mmol/L [facility] Urea nitrogen/Creatinine [Mass ratio] 18 mg/dL 7 - 22 mg/dL [facility] Laboratory - Hematology and Cell countson 12-04-2023 Basophils (Bld) [#/Vol] 0.11 10*3/uL [facility] Basophils/100 WBC (Bld) 0.8 % 0.0 - 2.0 % [facility] Eosinophils (Bld) [#/Vol] 0.01 10*3/uL 0.00 - 0.50 10*3/uL [facility] Eosinophils/100 WBC (Bld) 0.1 % 0.0 - 4.0 % [facility] Erythrocyte distribution width (RBC) [Ratio] 13.9 % 11.4 - 14.4 % [facility] Hematocrit (Bld) [Volume fraction] 49.9 % 34.3 - 53.1 % [facility] Hemoglobin (Bld) [Mass/Vol] 16.3 g/dL 11.4 - 17.7 g/dL [facility] Lymphocytes (Bld) [#/Vol] 1.18 10*3/uL 1.00 - 4.80 10*3/uL [facility] MCH (RBC) [Entitic mass] 31.4 pg 26.2 - 32.7 pg [facility] MCHC (RBC) [Mass/Vol] 32.7 g/dL 31.6 - 35.0 g/dL [facility] MCV (RBC) [Entitic vol] 96.1 fL High 81.6 - 95.6 fL [facility] Monocytes (Bld) [#/Vol] 0.75 10*3/uL 0.20 - 1.20 10*3/uL [facility] Monocytes/100 WBC (Bld) 5.7 % 5.0 - 12.0 % [facility] Neutrophils (Bld) [#/Vol] 10.99 10*3/uL High 2.00 - 7.50 10*3/uL [facility] Nucleated RBC/100 WBC (Bld) [Ratio] 0.0 % [facility] Platelet mean volume (Bld) [Entitic vol] 8.3 fL Low 8.9 - 11.5 fL [facility] Platelets (Bld) [#/Vol] 306 10*3/uL 150 - 375 10*3/uL [facility] RBC (Bld) [#/Vol] 5.19 10*6/uL 3.59 - 6.3 2 10*6/uL [facility] Segmented neutrophils/100 WBC (Bld) 84.2 % High 36.0 - 66.0 % [facility] Variant lymphocytes Auto Ql (Bld) 9.0 % Low 24.0 - 44.0 % [facility] WBC (Bld) [#/Vol] 13.07 10*3/uL High 3.12 - 10 .36 10*3/uL [facility] MAGNESIUMon 12-04-2023 Magnesium [Mass/Vol] 1.8 mg/dL Normal 1.7-2.2 [facility] Comment on above: Performed By: #### E ZENIA #### [facility] [address] [place] [address] NT-PRO BNPon 12-04-2023 Natriuretic peptide B (Bld) [Mass/Vol] 142.00 pg/mL Normal 0.00-900.00 [facility] Comment on above: Performed By: #### T MAGY ALVARADOP #### [facility] [address] [place] [address] No Panel Informationon 12-03 [facility] Test Date: 2023-12-04 Pat Name: ANGELLA FERNANDEZ Department: Room: ED03 Gender: Male [employer] Attendant: : 1970 Requested By: [id number] Order Number: [id number] Reading MD: Zain Norwood Measurements Intervals Jelm Rate: 117 P: 63 NC: 140 QRS: -16 QRSD: 84 T: 89 QT: 320 QTc: 446 Interpretive Statements Sinus tachycardia with occasional premature ventricular complexes Electronically Signed On 12-04-2023 13:21:41 EST by Zain Thompson MD - 12/04/2023 [facility] Test Date: 2023-12-04 Pat Name: ANGELLA FERNANDEZ Department: Room: ED03 Gender: Male [employer] Attendant: : 1970 Requested By: [id number] Order Number: [id number] Reading : Zain Norwood Measurements Intervals Jelm Rate: 117 P: 63 NC: 140 QRS: -16 QRSD: 84 T: 89 QT: 320 QTc: 446 Interpretive Statements Sinus tachycardia with occasional premature ventricular complexes Electronically Signed On 12-04-2023 13:21:41 EST by Zain Norwood [facility] Work Phone: [facility] Interpretation and review of laboratory results Abnormal [facility] Interpretation and review of laboratory results Abnormal [facility] RBC, NUCLEATED, ABSOLUTE 0.00 0.00 - 0.50 [facility] No Panel InformationOrdered By: Zain Norwood on 12-04-2023 [facility] Work Phone: PHOSPHORUSon 12-04-2023 Phosphate [Mass/Vol] 4.0 mg/dL Normal 2.5-4.6 [facility] Comment on above: Performed By: #### E ZENIA #### [address] [address] TROPONIN Ion 12-04-2023 Troponin I.cardiac [Mass/Vol] ng/mL Normal 0.012-0.120 [facility] Comment on above: Result Comment: RE FERENCE RANGE IS 0.012 - 0.120 ng/ml cTnI - The cutoff of 0.120 ng/ml is recommended for diagnosis of AMI, yielding optimal performance of 95% sensitivity and 93% specificity. Performed By: #### B BOBBY, , RITA #### [address] [address] Troponin I.cardiac [Mass/Vol] ng/mL Normal 0.012-0.120 [facility] Comment on above: Result Comment: RE FERENCE RANGE IS 0.012 - 0.120 ng/ml cTnI - The cutoff of 0.120 ng/ml is recommended for diagnosis of AMI, yielding optimal performance of 95% sensitivity and 93% specificity. Performed By: #### T CHALINO ALVARADO #### [address] [address] XR HIP WITH PELVIS RIGHTon 0 12-04-2023 [...] is recommended. Normal [facility] Comment on above: Order Comment: Vet-n o [...] cannot be excluded. Nonemergent MRI is recommended. [employer] Phone: Radiology Study observation (narrative) [employer] Phone: XR Pelvis and Hip - right Vi ewsOrdered By: Edison Wagoner on 12-04-2023 [facility] [employer] Phone: DRUG SCREEN, URINEon 024 AMPHETAMINE/METHAMP Negative Normal NEG [facility] Comment on above: Result Comment: AMPH /METH screening cut off = 1000 ng/mL Performed By: #### D SEWELL #### [facility] ([id number]) [address] [place] [address] BARBITURATES Negative Normal NEG [facility] Comment on above: Result Comment: [facility] iturates screening cut off value = 200 ng/mL Performed By: #### D SEWELL #### [facility] ([id number]) [address] [place] [address] BENZODIAZEPINES Negative Normal NEG [facility] Comment on above: Result Comment: James odiazepines screening cut off value = 200 ng/mL Performed By: #### D SEWELL #### [facility] ([id number]) [address] [place] [address] CANNABINOIDS Negative Normal NEG [facility] Comment on above: Result Comment: Ney abinoids/THC screening cut off value = 50 ng/mL Performed By: #### D SEWELL #### [facility] ([id number]) [address] [place] [address] COCAINE METABOLITE Positive Abnormal NEG [facility] Comment on above: Result Comment: Conf irmation available upon request. Cocaine screening cut off value = 300 ng/mL Performed By: #### D SEWELL #### [facility] ([id number]) [address] [place] [address] ECSTASY Negative Normal NEG [facility] Comment on above: Result Comment: Ecst asy screening cut off value = 500 ng/mL This report is intended for use in clinical monitoring or management of patients. Performed By: #### D SEWELL #### [facility] ([id number]) [address] [place] [address] METHADONE Negative Normal NEG [facility] Comment on above: Result Comment: Meth adone screening cut off value = 300 ng/mL. Performed By: #### D SEWELL #### [facility] ([id number]) [address] [place] [address] OPIATES Negative Normal NEG [facility] Comment on above: Result Comment: Opia rima screening cut off value = 300 ng/mL NOTE: This test is used for the detection of codeine, hydrocodone (>1000 ng/mL), morphine and hydromorphone (>900 ng/mL) in urine. Performed By: #### D SEWELL #### [facility] ([id number]) [address] [place] [address] OXYCODONE Negative Normal NEG [facility] Comment on above: Result Comment: Oxyc odone screening cut off value = 300 ng/mL NOTE: This test is used for the detection of oxycodone and oxymorphone in urine. Performed By: #### D SEWELL #### [facility] ([id number]) [address] [place] [address] PHENCYCLIDINE Negative Normal NEG [facility] Comment on above: Result Comment: Phen cyclidine screening cut off value = 25 ng/mL Performed By: #### D SEWELL #### [facility] ([id number]) [address] [place] [address] Ethanol [Mass/Vol]on 024 ETHANOL 0.17 g/dL High 0.00-0.08 [facility] Comment on above: Result Comment: This report is intended for use in clinical monitoring or management of patients. Performed By: #### 5 643-2 #### [facility] ([id number]) [address] [place] [address] URN MACROSCOPIC NURon 2023 BILIRUBIN TAZ Negative Normal [facility] Comment on above: Performed By: #### N UM #### [facility] ([id number]) [address] [place] [address] BLOOD/HGB TAZ Trace Abnormal NEG [facility] Comment on above: Performed By: #### N UM #### [facility] ([id number]) [address] [place] [address] GLUCOSE TAZ Negative Normal [facility] Comment on above: Performed By: #### N UM #### [facility] ([id number]) [address] [place] [address] [place] [address] KETONES TAZ 15 mg/dL Abnormal NEG [facility] Comment on above: Performed By: #### N UM #### [facility] ([id number]) [address] [place] [address] LEUKOCYTE ESTERASE TAZ Negative Normal NEG [facility] Comment on above: Performed By: #### N UM #### [facility] ([id number]) [address] [place] [address] NITRITE TAZ Negative Normal NEG [facility] Comment on above: Performed By: #### N UM #### [facility] ([id number]) [address] [place] [address] PH TAZ 6.0 Normal 5.0-8.5 [facility] Comment on above: Performed By: #### N UM #### [facility] ([id number]) [address] [place] [address] PROTEIN TAZ 100 mg/dL Abnormal NEG [facility] Comment on above: Performed By: #### N UM #### [facility] ([id number]) [address] [place] [address] SPECIFIC GRAVITY TAZ >=1.030 Normal 1.003-1.035 [facility] Comment on above: Performed By: #### N UM #### [facility] ([id number]) [address] [place] [address] UROBILINOGEN TAZ 1.0 eu/dL Normal <1.1 [facility] Comment on above: Performed By: #### N UM #### [facility] ([id number]) [address] [place] [address] ACETAMINOPHENon 11-09-2023 Acetaminophen [Mass/Vol] 2.3 ug/mL Low 10.0-30.0 [facility] Comment on above: Result Comment: Refe rence ranges are for therapeutic limits. Performed By: #### C BCA, CMP, 17836-4, 3298-7, 5643-2, 4024-6 #### [facility] ([id number]) [address] [place] [address] CBC AND AUTO DIFFon 11-09-19 24 ABSOLUTE BASOPHIL 0.2 X10E9/L Normal 0.0-0.2 [facility] Comment on above: Performed By: #### C BCA, CMP, 12854-2, 3298-7, 5643-2, 4024-6 #### [facility] ([id number]) [address] [place] [address] ABSOLUTE NEUTROPHIL 8.8 X10E9/L High 1.5-6.6 [facility] Comment on above: Performed By: #### C BCA, CMP, 70014-3, 3298-7, 5643-2, 4024-6 #### [facility] ([id number]) [address] [place] [address] Basophils/100 WBC (Bld) 1.4 % Normal [facility] Comment on above: Performed By: #### C BCA, CMP, 25131-3, 3298-7, 5643-2, 4024-6 #### [facility] ([id number]) [address] [place] [address] Eosinophils (Bld) [#/Vol] 0.0 10*3/uL Normal 0.0-0.4 [facility] Comment on above: Performed By: #### C BCA, CMP, 54988-9, 3298-7, 5643-2, 4024-6 #### [facility] ([id number]) [address] [place] [address] Eosinophils/100 WBC (Bld) 0.2 % Normal [facility] Comment on above: Performed By: #### C BCA, CMP, 11513-7, 3298-7, 5643-2, 4024-6 #### [facility] ([id number]) [address] [place] [address] Erythrocyte distribution width (RBC) [Ratio] 15.0 % Normal 11.5-15.0 [facility] Comment on above: Performed By: #### Kelly DICK, JOHN, 59062-2, 3298-7, 5643-2, 4024-6 #### [facility] ([id number]) [address] [place] [address] Hematocrit (Bld) [Volume fraction] 45.4 % Normal 39-49 [facility] Comment on above: Performed By: #### Kelly DICK CMP, , 8-7, 5643-2, 4024-6 #### [facility] ([id number]) [address] [place] [address] Hemoglobin (Bld) [Mass/Vol] 15.6 g/dL Normal 13.0-17.0 [facility] Comment on above: Performed By: #### Kelly DICK CMP, , 3297-7, 5643-2, 4024-6 #### [facility] ([id number]) [address] [place] [address] Lymphocytes (Bld) [#/Vol] 1.7 10*3/uL Normal 1.0-3.5 [facility] Comment on above: Performed By: #### Kelly DICK, JOHN, , 3297-7, 5643-2, 4024-6 #### [facility] ([id number]) [address] [place] [address] Lymphocytes/100 WBC (Bld) 15.1 % Normal [facility] Comment on above: Performed By: #### Kelly DICK, CMP, , 8-7, 5643-2, 4024-6 #### [facility] ([id number]) [address] [place] [address] MCH (RBC) [Entitic mass] 32.6 pg Normal 27-34 [facility] Comment on above: Performed By: #### C BCA, CMP, 61431-5, 3298-7, 5643-2, 4024-6 #### [facility] ([id number]) [address] [place] [address] MCHC (RBC) [Mass/Vol] 34.3 g/dL Normal 32-36 [facility] Comment on above: Performed By: #### Kelly BCA, CMP, 42632-4, 3298-7, 5643-2, 4024-6 #### [facility] ([id number]) [address] [place] [address] MCV (RBC) [Entitic vol] 95 fL Normal 80-100 [facility] Comment on above: Performed By: #### Kelly BCA, CMP, 24965-0, 3298-7, 5643-2, 4024-6 #### [facility] ([id number]) [address] [place] [address] Monocytes (Bld) [#/Vol] 0.7 10*3/uL Normal 0-0.9 [facility] Comment on above: Performed By: #### Kelly BCA, CMP, 46783-3, 3298-7, 5643-2, 4024-6 #### [facility] ([id number]) [address] [place] [address] Monocytes/100 WBC (Bld) 5.7 % Normal [facility] Comment on above: Performed By: #### Kelly BCA, CMP, 80030-7, 3298-7, 5643-2, 4024-6 #### [facility] ([id number]) [address] [place] [address] Neutrophils/100 WBC (Bld) 77.6 % Normal [facility] Comment on above: Performed By: #### Kelly BCA, CMP, 69809-4, 3298-7, 5643-2, 4024-6 #### [facility] ([id number]) [address] [place] [address]3687 Platelet mean volume (Bld) [Entitic vol] 6.0 fL Low 7-12 [facility] Comment on above: Performed By: #### C BCA, CMP, 16887-1, 3298-7, 5643-2, 4024-6 #### [facility] ([id number]) [address] [place] [address] 74270 Platelets (Bld) [#/Vol] 600 10*3/uL High 150-450 [facility] Comment on above: Performed By: #### C BCA, CMP, 76180-5, 3298-7, 5643-2, 4024-6 #### [facility] ([id number]) [address] [place] [address] 88216 RBC COUNT 4.77 X10E12/L Normal 4.10-5.70 [facility] Comment on above: Performed By: #### C BCA, CMP, 12497-5, 3298-7, 5643-2, 4024-6 #### [facility] ([id number]) [address] [place] [address] 25392 WBC (Bld) [#/Vol] 11.4 10*3/uL High 4.0-11.[address] [facility] Comment on above: Performed By: #### C BCA, CMP, 96948-1, 3298-7, 5643-2, 4024-6 #### [facility] ([id number]) [address] [place] [address]1677 COMPREHENSIVE METABOLIC PANE [place] 11-09-2023 Albumin [Mass/Vol] 4.3 g/dL Normal 3.2-5.3 [facility] Comment on above: Performed By: #### C BCA, CMP, 77686-8, 3298-7, 5643-2, 4024-6 #### [facility] ([id number]) [address] [place] [address] 46797 ALP [Catalytic activity/Vol] 106 U/L Normal 39-130 [facility] Comment on above: Performed By: #### C BCA, CMP, 19212-3, 3298-7, 5643-2, 4024-6 #### [facility] ([id number]) [address] [place] [address] 46028 ALT [Catalytic activity/Vol] 33 U/L Normal 0-40 [facility] Comment on above: Performed By: #### C BCA, CMP, 56669-1, 3298-7, 5643-2, 4024-6 #### [facility] ([id number]) [address] [place] [address] 18356 Anion gap [Moles/Vol] 16 mmol/L High 5-15 [facility] Comment on above: Performed By: #### C BCA, CMP, 17706-0, 3298-7, 5643-2, 4024-6 #### [facility] ([id number]) [address] [place] [address] 32101 AST [Catalytic activity/Vol] 41 U/L Normal 0-41 [facility] Comment on above: Performed By: #### C BCA, CMP, 88832-9, 3298-7, 5643-2, 4024-6 #### [facility] ([id number]) [address] [place] [address] 85231 Bilirubin [Mass/Vol] 1.3 mg/dL High 0.3-1.2 [facility] Comment on above: Performed By: #### C BCA, CMP, 90616-3, 3298-7, 5643-2, 4024-6 #### [facility] ([id number]) [address] [place] [address] 43143 Calcium [Mass/Vol] 8.9 mg/dL Normal 8.5-10.5 [facility] Comment on above: Performed By: #### C MAYELIN, CMP, 43894-4, 3298-7, 5643-2, 4024-6 #### [facility] ([id number]) [address] [place] [address] 98409 Chloride [Moles/Vol] 108 mmol/L Normal 98-109 [facility] Comment on above: Performed By: #### C MAYELIN, CMP, 95260-5, 3298-7, 5643-2, 4024-6 #### [facility] ([id number]) [address] [place] [address] 39876 CO2 [Moles/Vol] 19 mmol/L Low 22-32 [facility] Comment on above: Performed By: #### C MAYELIN, JOHN, 55483-6, 3298-7, 5643-2, 4024-6 #### [facility] ([id number]) [address] [place] [address] 59074 Creatinine [Mass/Vol] 0.83 mg/dL Normal 0.70-1.20 [facility] Comment on above: Result Comment: METH OD TRACEABLE TO IDMS STANDARD Performed By: #### C MAYELIN, JOHN, 94139-5, 3298-7, 5643-2, 4024-6 #### [facility] ([id number]) [address] [place] [address] 50400 eGFR (CKD-EPI) NON-RACE DEPENDENT >90 Normal >59 [facility] Comment on above: Result Comment: Reported eGFR is based on the CKD-EPI 2020 equation that does not use a race coefficient. Performed By: #### C MAYELIN, CMP, 95458-0, 3298-7, 5643-2, 4024-6 #### [facility] ([id number]) [address] [place] [address] 79025 Glucose [Mass/Vol] 136 mg/dL High 65-99 [facility] Comment on above: Performed By: #### C BCA, CMP, 33137-0, 3298-7, 5643-2, 4024-6 #### [facility] ([id number]) [address] [place] [address] 68103 Potassium [Moles/Vol] 3.3 mmol/L Low 3.5-5.0 [facility] Comment on above: Performed By: #### C BCA, CMP, 27400-8, 3298-7, 5643-2, 4024-6 #### [facility] ([id number]) [address] [place] [address] 78758 Protein [Mass/Vol] 8.4 g/dL High 6.0-8.0 [facility] Comment on above: Performed By: #### C BCA, CMP, 04595-9, 3298-7, 5643-2, 4024-6 #### [facility] ([id number]) [address] [place] [address] 18270 Sodium [Moles/Vol] 143 mmol/L Normal 134-146 [facility] Comment on above: Performed By: #### C BCA, CMP, 06784-7, 3298-7, 5643-2, 4024-6 #### [facility] ([id number]) [address] [place] [address] 22368 Urea nitrogen [Mass/Vol] 17 mg/dL Normal 5-23 [facility] Comment on above: Performed By: #### C BCA, CMP, 64336-4, 3298-7, 5643-2, 4024-6 #### [facility] ([id number]) [address] [place] [address] 19589 Ethanol [Mass/Vol]on 024 ETHANOL 0.40 g/dL Critically high 0.00-0.08 [facility] Comment on above: Result Comment: This report is intended for use in clinical monitoring or management of patients. Performed By: #### C BCA, CMP, 28290-3, 3298-7, 5643-2, 4024-6 #### [facility] ([id number]) [address] [place] [address] MAGNESIUMon 11-09-2023 Magnesium [Mass/Vol] 2.0 mg/dL Normal 1.8-2.6 [facility] Comment on above: Performed By: #### C BCA, CMP, 98528-8, 3298-7, 5643-2, 4024-6 #### [facility] ([id number]) [address] [place] [address] 93271 Salicylates [Mass/Vol]on SALICYLATE <4.0 Normal 2.0-25.0 [facility] Comment on above: Result Comment: Refe rence ranges are for therapeutic limits. Performed By: #### C BCA, CMP, 61248-1, 3298-7, 5643-2, 4024-6 #### [facility] ([id number]) [address] [place] [address] 21785 BASIC METABOLIC PANELon 09-30 CO2 [Moles/Vol] 26.0 mm/Hg Normal 22.0-30.0 [facility] Comment on above: Performed By: #### B ASIC, MAG, LIPA #### [address] [address] Potassium [Moles/Vol] 7.0 mmol/L [facility] Comment on above: Result Comment: 04-13 Performed By: #### B ASIC, MAG, LIPA #### [address] [address] Chloride [Moles/Vol] 105 mmol/L Normal 100-110 [facility] Comment on above: Performed By: #### B ASIC, MAG, LIPA #### [address] [address] Potassium [Moles/Vol] 3.9 mmol/L Normal 3.5-5.0 [facility] Comment on above: Performed By: #### B ASIC, MAG, LIPA #### [address] [address] Sodium [Moles/Vol] 138 mmol/L Normal 136-145 [facility] Comment on above: Performed By: #### B ASIC, MAG, LIPA #### [address] [address] Calcium [Mass/Vol] 9.4 mg/dL Normal 8.4-10.2 [facility] Comment on above: Performed By: #### B ASIC, MAG, LIPA #### [address] [address] Creatinine [Mass/Vol] 0.77 mg/dL Low 0.80-1.50 [facility] Comment on above: Performed By: #### B ASIC, MAG, LIPA #### [address] [address] GFR/1.73 sq M.predicted (S/P/Bld) [Vol rate/Area] 111 mL/min Normal >60 [facility] Comment on above: Reference Range: 59 to [...] OR very young -Races other than or -Salvadorean -People with acute illnesses, amputations, or acute [...] OR very young -Races other than or -[place]vadorean -People with acute illnesses, amputations, or acute kidney failure. Estimated GFR should be interpreted in clinical context and an alternative method such as a timed urine collection for creatinine clearance used to verify questionable results. (Ref. [employer] 2015) Performed By: #### B ASIC MAG LIPA #### [address] [address] Glucose [Mass/Vol] 88 mg/dL Normal 70-100 [facility] Comment on above: Performed By: #### B ASIC MAG, LIPA #### [address] [address] Urea nitrogen/Creatinine [Mass ratio] 14 mg/dL Normal 7-22 [facility] Comment on above: Performed By: #### B ASIC MAG LIPA #### [address] [address] Anion gap [Moles/Vol] 7.0 mmol/L [facility] Comment on above: 7-16 Chloride [Moles/Vol] 105 mmol/L 100 - 1 10 mmol/L [facility] CO2 [Moles/Vol] 26.0 mmol/L [facility] Interpretation and review of laboratory results Abnormal [facility] Potassium [Moles/Vol] 3.9 mmol/L 3.5 - 5.0 mmol/L [facility] Sodium [Moles/Vol] 138 mmol/L 136 - 145 mmol/L [facility] CBC WITH DIFFERENTIALon 09-30 Basophils (Bld) [#/Vol] 0.04 10*3/uL Normal 0.00-0.20 [facility] Comment on above: Performed By: #### B ASIC MAG, LIPA #### [address] [address] Basophils/100 WBC (Bld) 0.6 % Normal 0.0-2.0 [facility] Comment on above: Performed By: #### B ASIC, MAG, LIPA #### [address] [address] Eosinophils (Bld) [#/Vol] 0.09 10*3/uL Normal 0.00-0.50 [facility] Comment on above: Performed By: #### B ASIC, MAG, LIPA #### [address] [address] Eosinophils/100 WBC (Bld) 1.3 % Normal 0.0-4.0 [facility] Comment on above: Performed By: #### B ASIC, MAG, LIPA #### [address] [address] Erythrocyte distribution width (RBC) [Ratio] 12.7 % Normal 11.4-14.4 [facility] Comment on above: Performed By: #### B ASIC, MAG, LIPA #### [address] [address] Hematocrit (Bld) [Volume fraction] 39.0 % Normal 34.3-53.1 [facility] Comment on above: Performed By: #### B ASIC, MAG, LIPA #### [address] [address] Hemoglobin (Bld) [Mass/Vol] 13.5 g/dL Normal 11.4-17.7 [facility] Comment on above: Performed By: #### B ASIC, MAG, LIPA #### [address] [address] Lymphocytes (Bld) [#/Vol] 1.11 10*3/uL Normal 1.00-4.80 [facility] Comment on above: Performed By: #### B ASIC, MAG, LIPA #### [address] [address] MCH (RBC) [Entitic mass] 31.7 pg Normal 26.2-32.7 [facility] Comment on above: Performed By: #### B ASIC, MAG, LIPA #### [address] [address] MCHC (RBC) [Mass/Vol] 34.6 g/dL Normal 31.6-35.0 [facility] Comment on above: Performed By: #### B ASIC, MAG, LIPA #### [address] [address] MCV (RBC) [Entitic vol] 91.5 fL Normal 81.6-95.6 [facility] Comment on above: Performed By: #### B ASIC, MAG, LIPA #### [address] [address] Monocytes (Bld) [#/Vol] 0.54 10*3/uL Normal 0.20-1.20 [facility] Comment on above: Performed By: #### B ASIC, MAG, LIPA #### [address] [address] Monocytes/100 WBC (Bld) 8.0 % Normal 5.0-12.0 [facility] Comment on above: Performed By: #### B ASIC, MAG, LIPA #### [address] [address] Neutrophils (Bld) [#/Vol] 4.99 10*3/uL Normal 2.00-7.50 [facility] Comment on above: Performed By: #### B ASIC, MAG, LIPA #### [address] [address] NRBC COUNT 0.00 Normal 0.00-0.50 [facility] Comment on above: Performed By: #### B ASIC, MAG, LIPA #### [address] [address] Nucleated RBC/100 WBC (Bld) [Ratio] 0.0 % Normal [facility] Comment on above: Performed By: #### B ASIC, MAG, LIPA #### [address] [address] Platelet mean volume (Bld) [Entitic vol] 8.9 fL Normal 8.9-11.5 [facility] Comment on above: Performed By: #### B ASIC, MAG, LIPA #### [address] [address] Platelets (Bld) [#/Vol] 152 10*3/uL Normal 150-375 [facility] Comment on above: Performed By: #### B ASIC, MAG, LIPA #### [address] [address] RBC (Bld) [#/Vol] 4.26 10*6/uL Normal 3.59-6.32 [facility] Comment on above: Performed By: #### B ASIC, MAG, LIPA #### [address] [address] Segmented neutrophils/100 WBC (Bld) 73.6 % High 36.0-66.0 [facility] Comment on above: Performed By: #### B ASIC, MAG, LIPA #### [address] [address] Variant lymphocytes Auto Ql (Bld) 16.4 % Low 24.0-44.0 [facility] Comment on above: Performed By: #### B ASIC, MAG, LIPA #### [address] [address] WBC (Bld) [#/Vol] 6.78 10*3/uL Normal 3.12-10.36 [facility] Comment on above: Performed By: #### B ASIC, MAG, LIPA #### [address] [address] CBC, EDIF, PLATELETon 2023 Basophils (Bld) [#/Vol] 0.04 10*3/uL 0.00 - 0.20 10*3/uL [facility] Basophils/100 WBC (Bld) 0.6 % 0.0 - 2.0 % [facility] Eosinophils (Bld) [#/Vol] 0.09 10*3/uL 0.00 - 0.50 10*3/uL [facility] Eosinophils/100 WBC (Bld) 1.3 % 0.0 - 4.0 % [facility] Erythrocyte distribution width (RBC) [Ratio] 12.7 % 11.4 - 14.4 % [facility] Hematocrit (Bld) [Volume fraction] 39.0 % 34.3 - 53.1 % [facility] Hemoglobin (Bld) [Mass/Vol] 13.5 g/dL 11.4 - 17.7 g/dL [facility] Interpretation and review of laboratory results Abnormal [facility] Lymphocytes (Bld) [#/Vol] 1.11 10*3/uL 1.00 - 4.80 10*3/uL [facility] MCH (RBC) [Entitic mass] 31.7 pg 26.2 - 32.7 pg [facility] MCHC (RBC) [Mass/Vol] 34.6 g/dL 31.6 - 35.0 g/dL [facility] MCV (RBC) [Entitic vol] 91.5 fL 81.6 - 95.6 fL [facility] Monocytes (Bld) [#/Vol] 0.54 10*3/uL 0.20 - 1.20 10*3/uL [facility] Monocytes/100 WBC (Bld) 8.0 % 5.0 - 12.0 % [facility] Neutrophils (Bld) [#/Vol] 4.99 10*3/uL 2.00 - 7.50 10*3/uL [facility] Nucleated RBC/100 WBC (Bld) [Ratio] 0.0 % [facility] Platelet mean volume (Bld) [Entitic vol] 8.9 fL 8.9 - 11.5 fL [facility] Platelets (Bld) [#/Vol] 152 10*3/uL 150 - 375 10*3/uL [facility] RBC (Bld) [#/Vol] 4.26 10*6/uL 3.59 - 6.3 2 10*6/uL [facility] RBC, NUCLEATED, ABSOLUTE 0.00 0.00 - 0.50 [facility] Segmented neutrophils/100 WBC (Bld) 73.6 % High 36.0 - 66.0 % [facility] Variant lymphocytes Auto Ql (Bld) 16.4 % Low 24.0 - 44.0 % [facility] WBC (Bld) [#/Vol] 6.78 10*3/uL 3.12 - 10. 36 10*3/uL [facility] ALCOHOL (ETHANOL),BLOODon Ethanol [Mass/Vol] 282 mg/dL NINF - 10 mg/dL [facility] Comment on above: Effective 12-19-08 ne w methodology and new instrumentation: lower reportable range is 10 mg/dl. [place] legal limit of intoxication is 80 mg/dl or 0.08 g/dl. [facility] REPORTS OUT IN MG/DL [facility] ALCOHOL MEDICALon 10-23-2023 Ethanol [Mass/Vol] 282 mg/dL Normal <10 [facility] Comment on above: Result Comment: Effe ctive 12-19-08 new methodology and new instrumentation: lower reportable range is 10 mg/dl. [place] legal limit of intoxication is 80 mg/dl or 0.08 g/dl. [facility] REPORTS OUT IN MG/DL Performed By: #### E ZENIA #### [address] [address] C REACTIVE PROTEINon 024 CRP [Mass/Vol] 3.3 mg/dL High 0.0 - 0.9 mg/dL [facility] C-REACTIVE PROTEINon 024 CRP [Mass/Vol] 3.3 mg/dL High 0.0-0.9 [facility] Comment on above: Performed By: #### B BOBBY MAG LIPA #### [address] [address] CBC WITH DIFFERENTIALon 09-30 Basophils (Bld) [#/Vol] 0.08 10*3/uL Normal 0.00-0.20 [facility] Comment on above: Performed By: #### B ASIC MAG, LIPA #### [address] [address] Basophils/100 WBC (Bld) 0.8 % Normal 0.0-2.0 [facility] Comment on above: Performed By: #### B ASIC MAG, LIPA #### [address] [address] Eosinophils (Bld) [#/Vol] 0.02 10*3/uL Normal 0.00-0.50 [facility] Comment on above: Performed By: #### B ASIC MAG, LIPA #### [address] [address] Eosinophils/100 WBC (Bld) 0.2 % Normal 0.0-4.0 [facility] Comment on above: Performed By: #### B ASIC MAG, LIPA #### [address] [address] Erythrocyte distribution width (RBC) [Ratio] 12.6 % Normal 11.4-14.4 [facility] Comment on above: Performed By: #### B ASIC MAG, LIPA #### [address] [address] Hematocrit (Bld) [Volume fraction] 40.4 % Normal 34.3-53.1 [facility] Comment on above: Performed By: #### B ASIC MAG, LIPA #### [address] [address] Hemoglobin (Bld) [Mass/Vol] 14.3 g/dL Normal 11.4-17.7 [facility] Comment on above: Performed By: #### B ASIC MAG, LIPA #### [address] [address] Lymphocytes (Bld) [#/Vol] 1.86 10*3/uL Normal 1.00-4.80 [facility] Comment on above: Performed By: #### B ASIC, MAG, LIPA #### [address] [address] MCH (RBC) [Entitic mass] 31.9 pg Normal 26.2-32.7 [facility] Comment on above: Performed By: #### B ASIC, MAG, LIPA #### [address] [address] MCHC (RBC) [Mass/Vol] 35.4 g/dL High 31.6-35.0 [facility] Comment on above: Performed By: #### B ASIC, MAG, LIPA #### [address] [address] MCV (RBC) [Entitic vol] 90.2 fL Normal 81.6-95.6 [facility] Comment on above: Performed By: #### B ASIC, MAG, LIPA #### [address] [address] Monocytes (Bld) [#/Vol] 0.98 10*3/uL Normal 0.20-1.20 [facility] Comment on above: Performed By: #### B ASIC, MAG, LIPA #### [address] [address] Monocytes/100 WBC (Bld) 9.8 % Normal 5.0-12.0 [facility] Comment on above: Performed By: #### B ASIC, MAG, LIPA #### [address] [address] Neutrophils (Bld) [#/Vol] 7.06 10*3/uL Normal 2.00-7.50 [facility] Comment on above: Performed By: #### B ASIC, MAG, LIPA #### [address] [address] NRBC COUNT 0.00 Normal 0.00-0.50 [facility] Comment on above: Performed By: #### B ASIC, MAG, LIPA #### [address] [address] Nucleated RBC/100 WBC (Bld) [Ratio] 0.0 % Normal [facility] Comment on above: Performed By: #### B ASIC, MAG, LIPA #### [address] [address] Platelet mean volume (Bld) [Entitic vol] 8.8 fL Low 8.9-11.5 [facility] Comment on above: Performed By: #### B ASIC, MAG, LIPA #### [address] [address] Platelets (Bld) [#/Vol] 219 10*3/uL Normal 150-375 [facility] Comment on above: Performed By: #### B ASIC, MAG, LIPA #### [address] [address] RBC (Bld) [#/Vol] 4.48 10*6/uL Normal 3.59-6.32 [facility] Comment on above: Performed By: #### B ASIC, MAG, LIPA #### [address] [address] Segmented neutrophils/100 WBC (Bld) 70.4 % High 36.0-66.0 [facility] Comment on above: Performed By: #### B ASIC, MAG, LIPA #### [address] [address] Variant lymphocytes Auto Ql (Bld) 18.5 % Low 24.0-44.0 [facility] Comment on above: Performed By: #### B ASIC, MAG, LIPA #### [address] [address] WBC (Bld) [#/Vol] 10.03 10*3/uL Normal 3.12-10.36 [facility] Comment on above: Performed By: #### B ASIC, MAG, LIPA #### [address] [address] CBC, EDIF, PLATELETon 2023 Basophils (Bld) [#/Vol] 0.08 10*3/uL 0.00 - 0.20 10*3/uL [facility] Basophils/100 WBC (Bld) 0.8 % 0.0 - 2.0 % [facility] Eosinophils (Bld) [#/Vol] 0.02 10*3/uL 0.00 - 0.50 10*3/uL [facility] Eosinophils/100 WBC (Bld) 0.2 % 0.0 - 4.0 % [facility] Erythrocyte distribution width (RBC) [Ratio] 12.6 % 11.4 - 14.4 % [facility] Hematocrit (Bld) [Volume fraction] 40.4 % 34.3 - 53.1 % [facility] Hemoglobin (Bld) [Mass/Vol] 14.3 g/dL 11.4 - 17.7 g/dL [facility] Interpretation and review of laboratory results Abnormal [facility] Lymphocytes (Bld) [#/Vol] 1.86 10*3/uL 1.00 - 4.80 10*3/uL [facility] MCH (RBC) [Entitic mass] 31.9 pg 26.2 - 32.7 pg [facility] MCHC (RBC) [Mass/Vol] 35.4 g/dL High 31.6 - 35.0 g/dL [facility] MCV (RBC) [Entitic vol] 90.2 fL 81.6 - 95.6 fL [facility] Monocytes (Bld) [#/Vol] 0.98 10*3/uL 0.20 - 1.20 10*3/uL [facility] Monocytes/100 WBC (Bld) 9.8 % 5.0 - 12.0 % [facility] Neutrophils (Bld) [#/Vol] 7.06 10*3/uL 2.00 - 7.50 10*3/uL [facility] Nucleated RBC/100 WBC (Bld) [Ratio] 0.0 % [facility] Platelet mean volume (Bld) [Entitic vol] 8.8 fL Low 8.9 - 11.5 fL [facility] Platelets (Bld) [#/Vol] 219 10*3/uL 150 - 375 10*3/uL [facility] RBC (Bld) [#/Vol] 4.48 10*6/uL 3.59 - 6.3 2 10*6/uL [facility] RBC, NUCLEATED, ABSOLUTE 0.00 0.00 - 0.50 [facility] Segmented neutrophils/100 WBC (Bld) 70.4 % High 36.0 - 66.0 % [facility] Variant lymphocytes Auto Ql (Bld) 18.5 % Low 24.0 - 44.0 % [facility] WBC (Bld) [#/Vol] 10.03 10*3/uL 3.12 - 10 .36 10*3/uL [facility] METABOLIC PANE [place] 10-23-2023 Albumin [Mass/Vol] 4.3 g/dL Normal 3.5-5.0 [facility] Comment on above: Performed By: #### B ASIC, MAG, LIPA #### [address] [address] Calcium [Mass/Vol] 8.5 mg/dL Normal 8.4-10.2 [facility] [place] Comment on above: Performed By: #### B ASIC, MAG, LIPA #### [address] [address] CO2 [Moles/Vol] 14.0 mm/Hg Low 22.0-30.0 [facility] Comment on above: Performed By: #### B ASIC, MAG, LIPA #### [address] [address] Glucose [Mass/Vol] 120 mg/dL High 70-100 [facility] [place] Comment on above: Performed By: #### B ASIC, MAG, LIPA #### [address] [address] Potassium [Moles/Vol] 18.4 mmol/L Normal [facility] [place] Comment on above: Result Comment: 04-13 Performed By: #### B ASIC, MAG, LIPA #### [address] [address] Protein [Mass/Vol] 7.3 g/dL Normal 6.0-8.2 [facility] [place] Comment on above: Performed By: #### B ASIC, MAG, LIPA #### [address] [address] ALP [Catalytic activity/Vol] 82 U/L Normal 38-126 [facility] Comment on above: Performed By: #### B ASIC, MAG, LIPA #### [address] [address] ALT [Catalytic activity/Vol] 42 U/L Normal 21-72 [facility] Comment on above: Performed By: #### B ASIC, MAG, LIPA #### [address] [address] AST [Catalytic activity/Vol] 67 U/L High 17-59 [facility] Comment on above: Performed By: #### B MAG BOBBY LIPA #### [address] [address] Bilirubin [Mass or moles/Vol] 2.7 mg/dL High 0.2-1.2 [facility] Comment on above: Performed By: #### B MAG BOBBY LIPA #### [address] [address] Creatinine [Mass/Vol] 0.79 mg/dL Low 0.80-1.50 [facility] Comment on above: Performed By: #### B MAG BOBBY LIPA #### [address] [address] GFR/1.73 sq M.predicted (S/P/Bld) [Vol rate/Area] 108 mL/min Normal >60 [facility] Comment on above: Result Comment: Refe rence [...] OR very young -Races other than or -[place] -People with acute illnesses, amputations, or acute kidney failure. Estimated GFR should be interpreted in clinical context and an alternative method such as a timed urine collection for creatinine clearance used to verify questionable results. (Ref. [employer] 2015) Performed By: #### B ASIC MAG, LIPA #### [address] [address] Urea nitrogen/Creatinine [Mass ratio] 14 mg/dL Normal 7-22 [facility] Comment on above: Performed By: #### B ASIC MAG, LIPA #### [address] [address] Potassium [Moles/Vol] 3.5 mmol/L Normal 3.5-5.0 [facility] Comment on above: Performed By: #### B MAG BOBBY, LIPA #### [address] [address] Sodium [Moles/Vol] 139 mmol/L Normal 136-145 [facility] Comment on above: Performed By: #### B ASIC, MAG, LIPA #### [address] [address] Chloride [Moles/Vol] 106 mmol/L Normal 100-110 [facility] Comment on above: Performed By: #### B ASIC, MAG, LIPA #### [address] [address] Albumin [Mass/Vol] 4.3 g/dL 3.5 - 5.0 g/dL [facility] ALP [Catalytic activity/Vol] 82 U/L 38 - 126 U/L [facility] ALT [Catalytic activity/Vol] 42 U/L 21 - 72 U/L [facility] Anion gap [Moles/Vol] 18.4 mmol/L [facility] Comment on above: 7-16 AST [Catalytic activity/Vol] 67 U/L High 17 - 59 U/L [facility] Bilirubin [Mass or moles/Vol] 2.7 mg/dL High 0.2 - 1.2 mg/dL [facility] Calcium [Mass/Vol] 8.5 mg/dL 8.4 - 10. 2 mg/dL [facility] Chloride [Moles/Vol] 106 mmol/L 100 - 1 10 mmol/L [facility] CO2 [Moles/Vol] 14.0 mmol/L Low [facility] Creatinine [Mass/Vol] 0.79 mg/dL Low 0.80 - 1.50 mg/dL [facility] GFR/1.73 sq M.predicted (S/P/Bld) [Vol rate/Area] 108 mL/min - PINF [facility] Comment on above: Reference Range: 59 to [...] OR very young -Races other than or -Salvadorean -People with acute illnesses, amputations, or acute kidney failure. Estimated GFR should be interpreted in clinical context and an alternative method such as a timed urine collection for creatinine clearance used to verify questionable results. (Ref. National Kidney Foundation 2015) Glucose [Mass/Vol] 120 mg/dL High 70 - 100 mg/dL [facility] Potassium [Moles/Vol] 3.5 mmol/L 3.5 - 5.0 mmol/L [facility] Protein [Mass/Vol] 7.3 g/dL 6.0 - 8.2 g/dL [facility] Sodium [Moles/Vol] 139 mmol/L 136 - 145 mmol/L [facility] Urea nitrogen/Creatinine [Mass ratio] 14 mg/dL 7 - 22 mg/dL [facility] CT PE STUDYon 10-23-2023 CT PE STUDY [...] utilizing Mallory society guidelines if clinically warranted. [facility] Comment on above: Order Comment: Vet-n o [...] utilizing Mallory society guidelines if clinically warranted. [employer] Work Phone: [employer] Phone: Radiology Study observation (narrative) [email or web address] [facility] [employer] Phone: D DIMERon 10-23-2023 D DIMER 6.63 ug/mL High 0.27-0.56 [facility] Comment on above: Result Comment: 04-08 D-DIMER QUANTITATIVE REFERENCE INTERVAL: Anticoagulant therapy decreases the D-dimer levels and may generate false negative results Quantitative D-dimer performed on the Stago-Max analyzer. Cutoff value is >20.00 FEU in an attempt to obtain a negative predictive value close to 100 percent. (for DVT and PE). Non-VTE causes of elevated D-dimer include: trauma, MS, stroke, sepsis, DIC, active collagen diseases, post-surgery, [...] Performed By: #### C AURORA, BASIC #### [address] [address] D-DIMER,QUANTITATIVEon 10-23 D-DIMER 6.63 ug/mL High 0.27 - 0.56 ug/mL [facility] Comment on above: 04-08-23 D-DIMER CESILIA TITATIVE REFERENCE INTERVAL: Anticoagulant therapy decreases the D-dimer levels and may generate false negative results Quantitative D-dimer performed on the Stago-Max analyzer. Cutoff value is >20.00 FEU in an attempt to obtain a negative predictive value close to 100 percent. (for DVT and PE). Non-VTE causes of elevated D-dimer include: trauma, MS, stroke, sepsis, DIC, active collagen diseases, post-surgery, [...] Interpretation and review of laboratory results Abnormal [facility] ECGon 10-23-2023 Electrocardiogram [facility] Test Date: 2023-10-23 Pat Name: ANGELLA FERNANDEZ Department: Room: ED10 Gender: Male [employer] Attendant: : 1970 Requested By: [id number] Order Number: [id number] Reading MD: Zain Norwood Measurements Intervals Jelm Rate: 102 P: 77 NC: 150 QRS: 27 QRSD: 92 T: 90 QT: 368 QTc: 479 Interpretive Statements Sinus tachycardia Nonspecific T wave abnormality Electronically Signed On 10-23-2023 14:45:09 EST by Zain Norwood Normal [facility] Comment on above: Order Comment: Vet-n o [facility] Test Date: 2023-10-23 Pat Name: ANGELLA FERNANDEZ Department: Room: ED10 Gender: Male [employer] Bar[employer] Attendant: : 1970 Requested By: [id number] Order Number: [id number] Reading MD: Zain Norwood Measurements Intervals Jelm Rate: 102 P: 77 NC: 150 QRS: 27 QRSD: 92 T: 90 QT: 368 QTc: 479 Interpretive Statements Sinus tachycardia Nonspecific T wave abnormality Electronically Signed On 10-23-2023 14:45:09 EST by Zain Thompson MD - 10/23/2023 [facility] Test Date: 2023-10-23 Pat Name: ANGELLA FERNANDEZ Department: Room: 10 Gender: Male [employer] Bar[employer] Attendant: : 1970 Requested By: [id number] Order Number: [id number] Reading MD: Zain Norwood Measurements Intervals Jelm Rate: 102 P: 77 NC: 150 QRS: 27 QRSD: 92 T: 90 QT: 368 QTc: 479 Interpretive Statements Sinus tachycardia Nonspecific T wave abnormality Electronically Signed On 10-23-2023 14:45:09 EST by Zain Norwood [email or web address] [facility] [employer] Phone: LIPASEon 10-23-2023 Lipase [Catalytic activity/Vol] 82 U/L Normal 23-300 [facility] Comment on above: Order Comment: For i ndwelling catheters, specimen collection is acceptableon catheter day 1 and 2 only. ?SPECIMEN SOURCE URINE - CLEAN CATCHAdd on to drawn labs Performed By: #### B ASIC, MAG, LIPA #### [address] [address] Lipase [Catalytic activity/Vol] 82 U/L 23 - 300 U/L [facility] NT-PRO B-TYPE NATRIURETIC PE PTIDEon 10-23-2023 Natriuretic peptide B (Bld) [Mass/Vol] 335.00 pg/mL 0.00 - 900.00 pg/mL [facility] NT-PRO BNPon 10-23-2023 Natriuretic peptide B (Bld) [Mass/Vol] 335.00 pg/mL Normal 0.00-900.00 [facility] Comment on above: Performed By: #### B ASIC, MAG, LIPA #### [address] [address] No Panel InformationOrdered By: Zain Norwood on 10-23-2023 [employer] Phone: No Panel Informationon 10-23 Interpretation and review of laboratory results Abnormal [facility] Portable XR Chest Viewson IMPRESSION: Stable chest [...] IMPRESSION: Stable chest without acute radiographic abnormality. [employer] Work Phone: Radiology Study observation (narrative) [employer] Phone: Portable XR Chest ViewsOrder ed By: Marito Jacobo on 10-23-2023 [employer] Phone: SED RATEon 10-23-2023 ESR (Bld) [Velocity] 12 mm/h High 0-10 [facility] Comment on above: Performed By: #### B ASIC, , RITA #### [address] [address] SEDIMENTATION RATE, AUTOMATE Don 10-23-2023 ESR (Bld) [Velocity] 12 mm/h High [facility] Interpretation and review of laboratory results Abnormal [facility] TROPONINon 10-23-2023 Troponin I.cardiac [Mass/Vol] 0.095 ng/mL 0.012 - 0.120 ng/mL [facility] Comment on above: REFERENCE RANGE IS 0.012 - 0.120 ng/ml cTnI - The cutoff of 0.120 ng/ml is recommended for diagnosis of AMI, yielding optimal performance of 95% sensitivity and 93% specificity. [facility] Troponin I.cardiac [Mass/Vol] 0.097 ng/mL 0.012 - 0.120 ng/mL [facility] Comment on above: REFERENCE RANGE IS 0.012 - 0.120 ng/ml cTnI - The cutoff of 0.120 ng/ml is recommended for diagnosis of AMI, yielding optimal performance of 95% sensitivity and 93% specificity. [facility] Troponin I.cardiac [Mass/Vol] 0.085 ng/mL 0.012 - 0.120 ng/mL [facility] Comment on above: REFERENCE RANGE IS 0.012 - 0.120 ng/ml cTnI - The cutoff of 0.120 ng/ml is recommended for diagnosis of AMI, yielding optimal performance of 95% sensitivity and 93% specificity. TROPONIN Ion 10-23-2023 Troponin I.cardiac [Mass/Vol] 0.095 ng/mL Normal 0.012-0.120 [facility] Comment on above: Result Comment: RE FERENCE RANGE IS 0.012 - 0.120 ng/ml cTnI - The cutoff of 0.120 ng/ml is recommended for diagnosis of AMI, yielding optimal performance of 95% sensitivity and 93% specificity. Performed By: #### B MAG BOBBY LIPA #### [address] [address] Troponin I.cardiac [Mass/Vol] 0.097 ng/mL Normal 0.012-0.120 [facility] Comment on above: Result Comment: RE FERENCE RANGE IS 0.012 - 0.120 ng/ml cTnI - The cutoff of 0.120 ng/ml is recommended for diagnosis of AMI, yielding optimal performance of 95% sensitivity and 93% specificity. Performed By: #### B ASICMAG, LIPA #### [address] [address] Troponin I.cardiac [Mass/Vol] 0.085 ng/mL Normal 0.012-0.120 [facility] Comment on above: Result Comment: RE FERENCE RANGE IS 0.012 - 0.120 ng/ml cTnI - The cutoff of 0.120 ng/ml is recommended for diagnosis of AMI, yielding optimal performance of 95% sensitivity and 93% specificity. Performed By: #### B ASICMAG, LIPA #### [address] [address] XR CHEST 1 VIEW PORTABLE 0 10-23-2023 [...] radiographic abnormality. Normal [facility] Comment on above: Order Comment: Vet-n o [...] 2. Osteoarthritis. Normal [facility] Comment on above: Order Comment: Vet-n o [...] 1. No acute osseous abnormality. 2. Osteoarthritis. [facility] [employer] Work Phone: [facility] [employer] Work Phone: Radiology Study observation (narrative) [facility] Work Phone: C REACTIVE PROTEINon 023 CRP [Mass/Vol] 0.8 mg/dL 0.0 - 0.9 mg/dL [facility] CBC, EDIF, PLATELETon 2022 Basophils (Bld) [#/Vol] 0.13 10*3/uL [facility] Basophils/100 WBC (Bld) 1.6 % 0.0 - 2.0 % [facility] Eosinophils (Bld) [#/Vol] 0.15 10*3/uL 0.00 - 0.50 10*3/uL [facility] Eosinophils/100 WBC (Bld) 1.9 % 0.0 - 4.0 % [facility] Erythrocyte distribution width (RBC) [Ratio] 12.4 % 11.4 - 14.4 % [facility] Hematocrit (Bld) [Volume fraction] 50.3 % 34.3 - 53.1 % [facility] Hemoglobin (Bld) [Mass/Vol] 17.0 g/dL 11.4 - 17.7 g/dL [facility] Lymphocytes (Bld) [#/Vol] 2.59 10*3/uL 1.00 - 4.80 10*3/uL [facility] MCH (RBC) [Entitic mass] 32.2 pg 26.2 - 32.7 pg [facility] MCHC (RBC) [Mass/Vol] 33.8 g/dL 31.6 - 35.0 g/dL [facility] MCV (RBC) [Entitic vol] 95.3 fL 81.6 - 95.6 fL [facility] Monocytes (Bld) [#/Vol] 0.77 10*3/uL 0.20 - 1.20 10*3/uL [facility] Monocytes/100 WBC (Bld) 9.7 % 5.0 - 12.0 % [facility] Neutrophils (Bld) [#/Vol] 4.25 10*3/uL 2.00 - 7.50 10*3/uL [facility] Nucleated RBC/100 WBC (Bld) [Ratio] 0.0 % [facility] Platelet mean volume (Bld) [Entitic vol] 9.3 fL 8.9 - 11.5 fL [facility] Platelets (Bld) [#/Vol] 309 10*3/uL 150 - 375 10*3/uL [facility] RBC (Bld) [#/Vol] 5.28 10*6/uL 3.59 - 6.3 2 10*6/uL [facility] RBC, NUCLEATED, ABSOLUTE 0.00 0.00 - 0.50 [facility] Segmented neutrophils/100 WBC (Bld) 53.7 % 36.0 - 66.0 % [facility] Variant lymphocytes Auto Ql (Bld) 32.7 % 24.0 - 44.0 % [facility] WBC (Bld) [#/Vol] 7.92 10*3/uL 3.12 - 10. 36 10*3/uL [facility] COMPREHENSIVE METABOLIC PANE [place] 08-29-2023 Albumin [Mass/Vol] 4.8 g/dL 3.5 - 5.0 g/dL [facility] ALP [Catalytic activity/Vol] 67 U/L 38 - 126 U/L [facility] ALT [Catalytic activity/Vol] 24 U/L 21 - 72 U/L [facility] Anion gap [Moles/Vol] 11.4 mmol/L [facility] Comment on above: 7-16 AST [Catalytic activity/Vol] 44 U/L 17 - 59 U/L [facility] Bilirubin [Mass or moles/Vol] 2.7 mg/dL High 0.2 - 1.2 mg/dL [facility] Calcium [Mass/Vol] 10.0 mg/dL 8.4 - 10. 2 mg/dL [facility] Chloride [Moles/Vol] 107 mmol/L 100 - 1 10 mmol/L [facility] CO2 [Moles/Vol] 22.0 mmol/L [facility] Creatinine [Mass/Vol] 0.84 mg/dL 0.80 - 1.50 mg/dL [facility] GFR/1.73 sq M.predicted (S/P/Bld) [Vol rate/Area] 101 mL/min - PINF [facility] Comment on above: Reference Range: 59 to [...] OR very young -Races other than or -Salvadorean -People with acute illnesses, amputations, or acute kidney failure. Estimated GFR should be interpreted in clinical context and an alternative method such as a timed urine collection for creatinine clearance used to verify questionable results. (Ref. National Kidney Foundation 2015) Glucose [Mass/Vol] 84 mg/dL 70 - 100 mg/dL [facility] Potassium [Moles/Vol] 3.8 mmol/L 3.5 - 5.0 mmol/L [facility] Protein [Mass/Vol] 8.3 g/dL High 6.0 - 8.2 g/dL [facility] Sodium [Moles/Vol] 140 mmol/L 136 - 145 mmol/L [facility] Urea nitrogen/Creatinine [Mass ratio] 13 mg/dL 7 - 22 mg/dL [facility] LIPID PANEL W CALCULATED LDL on 08-29-2023 Cholesterol [Mass/Vol] 276 mg/dL High 0 - 200 mg/dL [facility] Comment on above: Cholesterol risk fac tor: Desirable < 200 mg/dL Borderline 200 - 239 mg/dL High risk > 239 mg/dL Cholesterol in HDL [Mass/Vol] 52 mg/dL [facility] Comment on above: HDL CHOLESTEROL: Optimal: > 60 mg/dl Low: < 40 mg/dl Cholesterol in LDL [Mass/Vol] 179 mg/dL [facility] Comment on above: REFERENCE RANGE FOR LDL [...] [Mass ratio] 3 {ratio} NINF - 3 [facility] Cholesterol in VLDL [Mass/Vol] 45 mg/dL [facility] Triglyceride [Mass/Vol] 226 mg/dL High 35 - 160 mg/dL [facility] No Panel Informationon 08-29 Interpretation and review of laboratory results Abnormal [facility] SEDIMENTATION RATE, AUTOMATE Don 08-29-2023 ESR (Bld) [Velocity] 4 mm/h [facility] TSHon 08-29-2023 TSH Qn 1.48 m[IU]/L [facility] Comment on above: TSH REFERENCE RANGE IS FOR AGE 10 AND OLDER. CHILDREN UNDER 1 YEAR OLD HAVE SIGNIFICANTLY HIGHER NORMAL RANGE, WHICH GRADUALLY DECREASES WITH AGE. PLEASE CONSULT THE PATHOLOGIST FOR SPECIFIC INFORMATION. [facility] VITAMIN B12on 08-29-2023 Cobalamin (Vitamin B12) [Mass/Vol] 436 pg/mL 239 - 931 pg/mL [facility] BASIC METABOLIC PANELon Anion gap [Moles/Vol] 24.5 mmol/L [facility] Comment on above: 7-16 Calcium [Mass/Vol] 8.6 mg/dL 8.4 - 10. 2 mg/dL [facility] Chloride [Moles/Vol] 104 mmol/L 100 - 1 10 mmol/L [facility] CO2 [Moles/Vol] 12.0 mmol/L Low [facility] Creatinine [Mass/Vol] 0.79 mg/dL Low 0.80 - 1.50 mg/dL [facility] GFR/1.73 sq M.predicted (S/P/Bld) [Vol rate/Area] 108 mL/min - PINF [facility] Comment on above: Reference Range: 59 to [...] OR very young -Races other than or -Salvadorean -People with acute illnesses, amputations, or acute kidney failure. Estimated GFR should be interpreted in clinical context and an alternative method such as a timed urine collection for creatinine clearance used to verify questionable results. (Ref. National Kidney Foundation 2015) Glucose [Mass/Vol] 77 mg/dL 70 - 100 mg/dL [facility] Interpretation and review of laboratory results Abnormal [facility] Potassium [Moles/Vol] 3.7 mmol/L 3.5 - 5.0 mmol/L [facility] Sodium [Moles/Vol] 140 mmol/L 136 - 145 mmol/L [facility] Urea nitrogen/Creatinine [Mass ratio] 13 mg/dL 7 - 22 mg/dL [facility] CBC, EDIF, PLATELETon 2022 Basophils (Bld) [#/Vol] 0.11 10*3/uL 0.00 - 0.20 10*3/uL [facility] Basophils/100 WBC (Bld) 1.1 % 0.0 - 2.0 % [facility] Eosinophils (Bld) [#/Vol] 0.03 10*3/uL 0.00 - 0.50 10*3/uL [facility] Eosinophils/100 WBC (Bld) 0.3 % 0.0 - 4.0 % [facility] Erythrocyte distribution width (RBC) [Ratio] 12.3 % 11.5 - 14.5 % [facility] Hematocrit (Bld) [Volume fraction] 44.2 % 42.0 - 54.0 % [facility] Hemoglobin (Bld) [Mass/Vol] 15.3 g/dL 14.0 - 18.0 g/dL [facility] Interpretation and review of laboratory results Abnormal [facility] Lymphocytes (Bld) [#/Vol] 2.09 10*3/uL 1.00 - 4.80 10*3/uL [facility] MCH (RBC) [Entitic mass] 31.0 pg 25.6 - 32.2 pg [facility] MCHC (RBC) [Mass/Vol] 34.6 g/dL 32.0 - 36.0 g/dL [facility] MCV (RBC) [Entitic vol] 89.5 fL 82.0 - 98.0 fL [facility] Monocytes (Bld) [#/Vol] 0.43 10*3/uL 0.20 - 1.20 10*3/uL [facility] Monocytes/100 WBC (Bld) 4.5 % Low 5.0 - 12.0 % [facility] Neutrophils (Bld) [#/Vol] 6.89 10*3/uL 2.00 - 7.50 10*3/uL [facility] Nucleated RBC/100 WBC (Bld) [Ratio] 0.0 % [facility] Platelet mean volume (Bld) [Entitic vol] 9.3 fL Low 9.4 - 12.4 fL [facility] Platelets (Bld) [#/Vol] 175 10*3/uL 150 - 450 10*3/uL [facility] RBC (Bld) [#/Vol] 4.94 10*6/uL 4.20 - 5.6 0 10*6/uL [facility] RBC, NUCLEATED, ABSOLUTE 0.00 0.00 - 0.50 [facility] Segmented neutrophils/100 WBC (Bld) 71.8 % High 36.0 - 66.0 % [facility] Variant lymphocytes Auto Ql (Bld) 21.8 % Low 24.0 - 44.0 % [facility] WBC (Bld) [#/Vol] 9.60 10*3/uL 4.80 - 10. 80 10*3/uL [facility] ECGon 04-30-2023 Electrocardiogram [facility] Test Date: 2023-04-30 Pat Name: ANGELLA FERNANDEZ Department: Room: ED09 Gender: Male [employer] Attendant: : 1970 Requested By: [id number] Order Number: [id number] Reading REENA Sutherland Measurements Intervals Jelm Rate: 96 P: 40 NC: 150 QRS: -19 QRSD: 96 T: 71 QT: 368 QTc: 464 Interpretive Statements Normal sinus rhythm Electronically Signed On 04-30-2023 14:46:14 EDT by Moncho Sutherland Normal [facility] Comment on above: Order Comment: Vet-n o [facility] Test Date: 2023-04-30 Pat Name: ANGELLA FERNANDEZ Department: Room: ED09 Gender: Male [employer] Bar[employer] Attendant: : 1970 Requested By: [id number] Order Number: [id number] Reading REENA Sutherland Measurements Intervals Jelm Rate: 96 P: 40 NC: 150 QRS: -19 QRSD: 96 T: 71 QT: 368 QTc: 464 Interpretive Statements Normal sinus rhythm Electronically Signed On 04-30-2023 14:46:14 EDT by Moncho Sutherland RADIOLOGY Moncho Sutherland MD - 04/30/2023 [facility] Test Date: 2023-04-30 Pat Name: ANGELLA FERNANDEZ Department: Room: ED09 Gender: Male [employer] Bar[employer] Attendant: : 1970 Requested By: [id number] Order Number: [id number] Reading REENA Sutherland Measurements Intervals Jelm Rate: 96 P: 40 NC: 150 QRS: -19 QRSD: 96 T: 71 QT: 368 QTc: 464 Interpretive Statements Normal sinus rhythm Electronically Signed On 04-30-2023 14:46:14 EDT by Moncho Sutherland [employer] Phone: [employer] Phone: MAGNESIUMon 04-30-2023 Magnesium [Mass/Vol] 1.9 mg/dL 1.7 - 2 .2 mg/dL [facility] [employer] No Panel Informationon 04-30 [facility] [employer] Portable XR Chest Viewson IMPRESSION: No radiographic [...] radiographic finding to suggest acute cardiopulmonary process. [employer] Phone: Radiology Study observation (narrative) [employer] Phone: Portable XR Chest ViewsOrder ed By: Moncho Montenegro on 04-30-2023 [employer] Phone: TROPONINon 04-30-2023 Troponin I.cardiac [Mass/Vol] 0.020 ng/mL 0.012 - 0.120 ng/mL [facility] Comment on above: REFERENCE RANGE IS 0.012 - 0.120 ng/ml cTnI - The cutoff of 0.120 ng/ml is recommended for diagnosis of AMI, yielding optimal performance of 95% sensitivity and 93% specificity. [facility] Troponin I.cardiac [Mass/Vol] 0.019 ng/mL 0.012 - 0.120 ng/mL [facility] [employer] Comment on above: REFERENCE RANGE IS 0.012 - 0.120 ng/ml cTnI - The cutoff of 0.120 ng/ml is recommended for diagnosis of AMI, yielding optimal performance of 95% sensitivity and 93% specificity. [facility] XR CHEST PORTABLEon 04-30-20 XR CHEST PORTABLE CLINICAL INDICATION: chest pain EXAM DESCRIPTION: XR CHEST PORTABLE 04/30/2023 9:31 am COMPARISON: 09/09/2015 TECHNIQUE: FINDINGS: The cardiomediastinal silhouette and central vasculature are within normal limits. The lungs are normally aerated. There is no consolidation, effusion or pneumothorax. IMPRESSION: No radiographic finding to suggest acute cardiopulmonary process. Normal [facility] Comment on above: Order Comment: Vet-n o ETHYL ALCOHOL BLOODon 2021 ETHYL ALCOHOL BLOOD 0.05 % Normal 0.00 [facility] Comment on above: Performed By: #### C BCWD, EGFR1, HEPPA, ASAT, OSMOL, ACTM, BMP, ETOHS, ANION, TSH3 #### [address] [place] [address] Ethanolon 03-07-2022 ETHYL ALCOHOL, SERUM 0.05 % 0.00 [facility] Comment on above: Performed at [facility] [address] UA WITH MICROSCOPICon 2021 BACTERIA NONE SEEN Normal FEW/NONE SEEN [facility] Comment on above: Performed By: #### C BCWD, EGFR1, HEPPA, ASAT, OSMOL, ACTM, BMP, ETOHS, ANION, TSH3 #### [address] [place] [address] CASTS NONE SEEN Normal NONE SEEN [facility] Comment on above: Performed By: #### C BCWD, EGFR1, HEPPA, ASAT, OSMOL, ACTM, BMP, ETOHS, ANION, TSH3 #### [address] [place] [address] CASTS 2 NONE SEEN Normal NONE SEEN [facility] Comment on above: Performed By: #### C BCWD, EGFR1, HEPPA, ASAT, OSMOL, ACTM, BMP, ETOHS, ANION, TSH3 #### [address] [place] [address] Crystals LM Nom (Urine sed) NONE SEEN Normal NONE SEEN [facility] Comment on above: Performed By: #### C BCWD, EGFR1, HEPPA, ASAT, OSMOL, ACTM, BMP, ETOHS, ANION, TSH3 #### [place] [address] EPITHELIAL 0-2 Normal 3-5/hpf [facility] Comment on above: Performed By: #### C BCWD, EGFR1, HEPPA, ASAT, OSMOL, ACTM, BMP, ETOHS, ANION, TSH3 #### [place] [address] MISCELLANEOUS 2 NONE SEEN Normal [facility] Comment on above: Performed By: #### C BCWD, EGFR1, HEPPA, ASAT, OSMOL, ACTM, BMP, ETOHS, ANION, TSH3 #### [place] [address] RBC 0-2 Normal 0-2/hpf [facility] Comment on above: Performed By: #### C BCWD, EGFR1, HEPPA, ASAT, OSMOL, ACTM, BMP, ETOHS, ANION, TSH3 #### [place] [address] RENAL EPITHELIAL NONE SEEN Normal NONE SEEN [facility] Comment on above: Performed By: #### C BCWD, EGFR1, HEPPA, ASAT, OSMOL, ACTM, BMP, ETOHS, ANION, TSH3 #### [place] [address] WBC 0-2 Normal 0-4/hpf [facility] Comment on above: Performed By: #### C BCWD, EGFR1, HEPPA, ASAT, OSMOL, ACTM, BMP, ETOHS, ANION, TSH3 #### [address] [address] YEAST NONE SEEN Normal NONE SEEN [facility] Comment on above: Performed By: #### C BCWD, EGFR1, HEPPA, ASAT, OSMOL, ACTM, BMP, ETOHS, ANION, TSH3 #### [place] [address] Bilirubin Ql (U) Negative Normal NEGATIVE [facility] Comment on above: Performed By: #### C BCWD, EGFR1, HEPPA, ASAT, OSMOL, ACTM, BMP, ETOHS, ANION, TSH3 #### [facility] [address] [place] [address] CHARACTER CLEAR Normal CLEAR-SL CLOUD [place] [facility] Comment on above: Performed By: #### C BCWD, EGFR1, HEPPA, ASAT, OSMOL, ACTM, BMP, ETOHS, ANION, TSH3 #### [facility] [address] [place] [address] Color (U) YELLOW Normal STRAW-YELLOW [facility] Comment on above: Performed By: #### C BCWD, EGFR1, HEPPA, ASAT, OSMOL, ACTM, BMP, ETOHS, ANION, TSH3 #### [facility] [address] [place] [address] Glucose Ql (U) Negative Normal NEGATIVE [facility] Comment on above: Performed By: #### C BCWD, EGFR1, HEPPA, ASAT, OSMOL, ACTM, BMP, ETOHS, ANION, TSH3 #### [facility] [address] [place] [address] Hemoglobin Ql (U) LARGE Abnormal NEGATIVE [facility] Comment on above: Performed By: #### C BCWD, EGFR1, HEPPA, ASAT, OSMOL, ACTM, BMP, ETOHS, ANION, TSH3 #### [facility] [address] [place] [address] LEUKOCYTES Negative Normal NEGATIVE [facility] Comment on above: Performed By: #### C BCWD, EGFR1, HEPPA, ASAT, OSMOL, ACTM, BMP, ETOHS, ANION, TSH3 #### [facility] [address] [place] [address] Nitrite Ql (U) Negative Normal NEGATIVE [facility] Comment on above: Performed By: #### C BCWD, EGFR1, HEPPA, ASAT, OSMOL, ACTM, BMP, ETOHS, ANION, TSH3 #### [facility] [address] [place] [address] pH (U) 5.5 [pH] Normal 5.0 - 9.0 [facility] Comment on above: Performed By: #### C BCWD, EGFR1, HEPPA, ASAT, OSMOL, ACTM, BMP, ETOHS, ANION, TSH3 #### [place] [address] Protein Ql (U) 300 Abnormal NEGATIVE [facility] Comment on above: Performed By: #### C BCWD, EGFR1, HEPPA, ASAT, OSMOL, ACTM, BMP, ETOHS, ANION, TSH3 #### [place] [address] Specific gravity (U) [Rel density] 1.016 Normal 1.002-1.030 [facility] Comment on above: Performed By: #### C BCWD, EGFR1, HEPPA, ASAT, OSMOL, ACTM, BMP, ETOHS, ANION, TSH3 #### [place] [address] Urobilinogen Qn (U) 0.2 {Adrian'U}/dL Normal 0.0 - 1. 0 [facility] Comment on above: Performed By: #### C BCWD, EGFR1, HEPPA, ASAT, OSMOL, ACTM, BMP, ETOHS, ANION, TSH3 #### [place] [address] ACETAMINOPHENon 03-06-2022 Acetaminophen [Mass/Vol] ug/mL Normal 0.0-20.0 [facility] Comment on above: Performed By: #### C BCWD, EGFR1, HEPPA, ASAT, OSMOL, ACTM, BMP, ETOHS, ANION, TSH3 #### [address] [address] ANION GAPon 03-06-2022 Anion gap [Moles/Vol] 24.0 mmol/L High 8.0-16.0 [facility] Comment on above: Result Comment: ANIO N GAP = Sodium -(Chloride + CO2) Performed By: #### C BCWD, EGFR1, HEPPA, ASAT, OSMOL, ACTM, BMP, ETOHS, ANION, TSH3 #### [address] [place] [address] Acetaminophen Levelon 2021 Acetaminophen Level < 5.0 0.0 - 20 .0 ug/mL [facility] Comment on above: Performed at [facility] [address] [place] [address] Anion Gapon 03-06-2022 Anion gap [Moles/Vol] 24.0 mmol/L High 8.0 - 16.0 meq/L [facility] Comment on above: ANION GAP = Sodium - (Chloride + CO2) Performed at [facility] [address] [place] [address] BASIC METABOL PANELon 2021 Calcium [Mass/Vol] 8.8 mg/dL Normal 8.5-10.5 [facility] Comment on above: Performed By: #### C BCWD, EGFR1, HEPPA, ASAT, OSMOL, ACTM, BMP, ETOHS, ANION, TSH3 #### [facility] [address] [address] Chloride [Moles/Vol] 97 mmol/L Low 98-111 [facility] Comment on above: Performed By: #### C BCWD, EGFR1, HEPPA, ASAT, OSMOL, ACTM, BMP, ETOHS, ANION, TSH3 #### [facility] [address] [place] [address] CO2 [Moles/Vol] 16 mmol/L Low 23-33 [facility] Comment on above: Performed By: #### C BCWD, EGFR1, HEPPA, ASAT, OSMOL, ACTM, BMP, ETOHS, ANION, TSH3 #### [facility] [address] [place] [address] Creatinine [Mass/Vol] 0.8 mg/dL Normal 0.4-1.2 [facility] Comment on above: Performed By: #### C BCWD, EGFR1, HEPPA, ASAT, OSMOL, ACTM, BMP, ETOHS, ANION, TSH3 #### [facility] [address] [place] [address] Glucose [Mass/Vol] 152 mg/dL High 70-108 [facility] Comment on above: Performed By: #### C BCWD, EGFR1, HEPPA, ASAT, OSMOL, ACTM, BMP, ETOHS, ANION, TSH3 #### [facility] [address] [place] [address] Potassium [Moles/Vol] 3.3 mmol/L Low 3.5-5.2 [facility] Comment on above: Performed By: #### C BCWD, EGFR1, HEPPA, ASAT, OSMOL, ACTM, BMP, ETOHS, ANION, TSH3 #### [facility] [address] [place] [address] Sodium [Moles/Vol] 137 mmol/L Normal 135-145 [facility] Comment on above: Performed By: #### C BCWD, EGFR1, HEPPA, ASAT, OSMOL, ACTM, BMP, ETOHS, ANION, TSH3 #### [address] [address] Urea nitrogen [Mass/Vol] 16 mg/dL Normal 7-22 [facility] Comment on above: Performed By: #### C BCWD, EGFR1, HEPPA, ASAT, OSMOL, ACTM, BMP, ETOHS, ANION, TSH3 #### [address] [address] Basic Metabolic Panelon 06-0 Calcium [Mass/Vol] 8.8 mg/dL 8.5 - 10. 5 mg/dL [facility] [employer] Comment on above: Performed at [facility] [address] [place] [address] Chloride [Moles/Vol] 97 mmol/L Low 98 - 11 1 meq/L [facility] [employer] CO2 [Moles/Vol] 16 mmol/L Low 23 - 33 meq/L [facility] [employer] Creatinine [Mass/Vol] 0.8 mg/dL 0.4 - 1.2 mg/dL [facility] [employer] Glucose [Mass/Vol] 152 mg/dL High 70 - 108 mg/dL [facility] [employer] Potassium [Moles/Vol] 3.3 mmol/L Low 3.5 - 5.2 meq/L [facility] Sodium [Moles/Vol] 137 mmol/L 135 - 145 meq/L [facility] Urea nitrogen (BldV) [Mass/Vol] 16 mg/dL 7 - 22 mg/dL [facility] CALCULATED OSMOLALITYon Osmolality [Osmolality] 278.0 mosm/kg Normal 275.0-300.0 [facility] Comment on above: Performed By: #### C BCWD, EGFR1, HEPPA, ASAT, OSMOL, ACTM, BMP, ETOHS, ANION, TSH3 #### [place] [address] CBC WITH DIFFERENTIALon ABS BASOPHILS 0.1 thou/mm3 Normal 0.0-0.1 [facility] Comment on above: Performed By: #### C BCWD, EGFR1, HEPPA, ASAT, OSMOL, ACTM, BMP, ETOHS, ANION, TSH3 #### [place] [address] ABS EOSINOPHILS 0.1 thou/mm3 Normal 0.0-0.4 [facility] Comment on above: Performed By: #### C BCWD, EGFR1, HEPPA, ASAT, OSMOL, ACTM, BMP, ETOHS, ANION, TSH3 #### [place] [address] ABS IMMATURE GRANS (IG) 0.04 thou/mm3 Normal 0.00-0.07 [facility] Comment on above: Performed By: #### C BCWD, EGFR1, HEPPA, ASAT, OSMOL, ACTM, BMP, ETOHS, ANION, TSH3 #### [place] [address] ABS LYMPHOCYTES 3.7 thou/mm3 Normal 1.0-4.8 [facility] Comment on above: Performed By: #### C BCWD, EGFR1, HEPPA, ASAT, OSMOL, ACTM, BMP, ETOHS, ANION, TSH3 #### [place] [address] ABS MONOCYTES 0.9 thou/mm3 Normal 0.4-1.3 [facility] Comment on above: Performed By: #### C BCWD, EGFR1, HEPPA, ASAT, OSMOL, ACTM, BMP, ETOHS, ANION, TSH3 #### [address] [address] ABS NEUTROPHILS 7.3 thou/mm3 Normal 1.8-7.7 [facility] Comment on above: Performed By: #### C BCWD, EGFR1, HEPPA, ASAT, OSMOL, ACTM, BMP, ETOHS, ANION, TSH3 #### [address] [address] Basophils/100 WBC (Bld) 1.1 % Normal [facility] Comment on above: Performed By: #### C BCWD, EGFR1, HEPPA, ASAT, OSMOL, ACTM, BMP, ETOHS, ANION, TSH3 #### [address] [address] Eosinophils/100 WBC (Bld) 0.7 % Normal [facility] Comment on above: Performed By: #### C BCWD, EGFR1, HEPPA, ASAT, OSMOL, ACTM, BMP, ETOHS, ANION, TSH3 #### [place] [address] Erythrocyte distribution width (RBC) [Ratio] 13.4 % Normal 11.5-14.5 [facility] Comment on above: Performed By: #### C BCWD, EGFR1, HEPPA, ASAT, OSMOL, ACTM, BMP, ETOHS, ANION, TSH3 #### [place] [address] Hematocrit (Bld) [Volume fraction] 44.5 % Normal 42.0-52.0 [facility] Comment on above: Performed By: #### C BCWD, EGFR1, HEPPA, ASAT, OSMOL, ACTM, BMP, ETOHS, ANION, TSH3 #### [place] [address] Hemoglobin (Bld) [Mass/Vol] 15.7 g/dL Normal 14.0-18.0 [facility] Comment on above: Performed By: #### C BCWD, EGFR1, HEPPA, ASAT, OSMOL, ACTM, BMP, ETOHS, ANION, TSH3 #### [address] [address] IMMATURE GRANS (IG) 0.3 % Normal [facility] Comment on above: Performed By: #### C BCWD, EGFR1, HEPPA, ASAT, OSMOL, ACTM, BMP, ETOHS, ANION, TSH3 #### [address] [address] Lymphocytes/100 WBC (Bld) 30.3 % Normal [facility] Comment on above: Performed By: #### C BCWD, EGFR1, HEPPA, ASAT, OSMOL, ACTM, BMP, ETOHS, ANION, TSH3 #### [place] [address] MCH (RBC) [Entitic mass] 32.4 pg Normal 26.0-33.0 [facility] Comment on above: Performed By: #### C BCWD, EGFR1, HEPPA, ASAT, OSMOL, ACTM, BMP, ETOHS, ANION, TSH3 #### [place] [address] MCHC (RBC) [Mass/Vol] 35.3 g/dL Normal 32.2-35.5 [facility] Comment on above: Performed By: #### C BCWD, EGFR1, HEPPA, ASAT, OSMOL, ACTM, BMP, ETOHS, ANION, TSH3 #### [place] [address] MCV (RBC) [Entitic vol] 91.9 fL Normal 80.0-94.0 [facility] Comment on above: Performed By: #### C BCWD, EGFR1, HEPPA, ASAT, OSMOL, ACTM, BMP, ETOHS, ANION, TSH3 #### [place] [address] Monocytes/100 WBC (Bld) 7.3 % Normal [facility] Comment on above: Performed By: #### C BCWD, EGFR1, HEPPA, ASAT, OSMOL, ACTM, BMP, ETOHS, ANION, TSH3 #### [address] [address] Neutrophils/100 WBC (Bld) 60.3 % Normal [facility] Comment on above: Performed By: #### C BCWD, EGFR1, HEPPA, ASAT, OSMOL, ACTM, BMP, ETOHS, ANION, TSH3 #### [address] [address] NRBC 0 /100 wbc Normal [facility] Comment on above: Performed By: #### C BCWD, EGFR1, HEPPA, ASAT, OSMOL, ACTM, BMP, ETOHS, ANION, TSH3 #### [address] [address] PLATELET 328 thou/mm3 Normal 130-400 [facility] Comment on above: Performed By: #### C BCWD, EGFR1, HEPPA, ASAT, OSMOL, ACTM, BMP, ETOHS, ANION, TSH3 #### [place] [address] Platelet mean volume (Bld) [Entitic vol] 8.5 fL Low 9.4-12.4 [facility] Comment on above: Performed By: #### C BCWD, EGFR1, HEPPA, ASAT, OSMOL, ACTM, BMP, ETOHS, ANION, TSH3 #### [place] [address] RBC 4.84 mill/mm3 Normal 4.70-6.10 [facility] Comment on above: Performed By: #### C BCWD, EGFR1, HEPPA, ASAT, OSMOL, ACTM, BMP, ETOHS, ANION, TSH3 #### [address] [address] RDW-SD 45.3 fL High 35.0-45.0 [facility] Comment on above: Performed By: #### C BCWD, EGFR1, HEPPA, ASAT, OSMOL, ACTM, BMP, ETOHS, ANION, TSH3 #### [address] [address] WBC 12.1 thou/mm3 High 4.8-10.8 [facility] Comment on above: Performed By: #### C BCWD, EGFR1, HEPPA, ASAT, OSMOL, ACTM, BMP, ETOHS, ANION, TSH3 #### [facility] [address] [place] [address] CBC with Auto Differentialon 03-06-2022 Basophils (Bld) [...] granulocytes/100 WBC (Bld) 0.3 % [facility] Interpretation and review of laboratory results [...] HEALTH nRBC 0 /100 wbc [facility] Comment on above: Performed at [facility] [address] [place] [address] Platelet mean volume (Bld) [Entitic vol] 8.5 fL Low 9.4 - 12.4 fL [facility] Platelets (Bld) [#/Vol] 328 10*3/uL [facility] RBC (Bld) [#/Vol] 4.84 10*6/uL [facility] Segmented neutrophils/100 WBC (Bld) 60.3 % [facility] Segs Absolute 7.3 [facility] WBC (Bld) [#/Vol] 12.1 10*3/uL High [facility] DRUG ABUSE SCREENon 03-06-20 22 AMPHETAMINE/METHAMPH Negative Normal NEGATIVE [facility] Comment on above: Performed By: #### C BCWD, EGFR1, HEPPA, ASAT, OSMOL, ACTM, BMP, ETOHS, ANION, TSH3 #### [facility] [employer] [address] [place] [address] BARBITURATE Negative Normal NEGATIVE [facility] Comment on above: Performed By: #### C BCWD, EGFR1, HEPPA, ASAT, OSMOL, ACTM, BMP, ETOHS, ANION, TSH3 #### [place] [address] Benzodiazepines Ql (U) Negative Normal NEGATIVE [facility] Comment on above: Performed By: #### C BCWD, EGFR1, HEPPA, ASAT, OSMOL, ACTM, BMP, ETOHS, ANION, TSH3 #### [facility] [employer] [address] [place] [address] Cannabinoids Screen Ql (U) Negative Normal NEGATIVE [facility] Comment on above: Performed By: #### C BCWD, EGFR1, HEPPA, ASAT, OSMOL, ACTM, BMP, ETOHS, ANION, TSH3 #### [place] [address] COCAINE METABOLITE Negative Normal NEGATIVE [facility] Comment on above: Performed By: #### C BCWD, EGFR1, HEPPA, ASAT, OSMOL, ACTM, BMP, ETOHS, ANION, TSH3 #### [place] [address] Opiates Ql (U) Negative Normal NEGATIVE [facility] Comment on above: Performed By: #### C BCWD, EGFR1, HEPPA, ASAT, OSMOL, ACTM, BMP, ETOHS, ANION, TSH3 #### [facility] [address] [place] [address] OXYCODONE Negative Normal NEGATIVE [facility] Comment on above: Performed By: #### C BCWD, EGFR1, HEPPA, ASAT, OSMOL, ACTM, BMP, ETOHS, ANION, TSH3 #### [facility] [address] [place] [address] Phencyclidine Ql (U) Negative Normal NEGATIVE [facility] Comment on above: Result Comment: A N [...] OSMOL, ACTM, BMP, ETOHS, ANION, TSH3 #### [facility] [address] [place] [address] EKG 12-LEADon 03-06-2022 EKG 12-LEAD 105 105 154 [phone] 47 -4 -157 Sinus tachycardia Nonspecific T wave abnormality Abnormal ECG When compared with ECG of 27-NOV-2019 14:59, No significant change was found Confirmed by BECCA BEAULIEU ([id number]) on 03/07/2022 10:21:47 PM [email or web address] [email or web address]=05-04-2022&Ti me=[email or web address]& TestType=ECG&Site=3&O utputType=PDF&Ext=PDF Normal [facility] ETHYL ALCOHOL BLOODon 2021 ETHYL ALCOHOL BLOOD 0.40 % Normal 0.00 [facility] Comment on above: Performed By: #### C BCWD, EGFR1, HEPPA, ASAT, OSMOL, ACTM, BMP, ETOHS, ANION, TSH3 #### [facility] [employer] [address] [place] [address] Ethanolon 03-06-2022 ETHYL ALCOHOL, SERUM 0.4 % 0.00 [facility] Comment on above: Performed at [facility] [address] [place] [address] GFR, ESTIMATEDon 03-06-2022 GFR/1.73 sq M.predicted MDRD (S/P/Bld) [Vol rate/Area] mL/min/{1.73_m2} Normal [facility] Comment on above: Result Comment: Stag e [...] OSMOL, ACTM, BMP, ETOHS, ANION, TSH3 #### [employer] [address] [place] [address] Glomerular Filtration Rate, Estimatedon 03-06-2022 GFR/1.73 sq M.predicted MDRD (S/P/Bld) [Vol rate/Area] mL/min/{1.73_m2} ml/min/1.73m2 [facility] Comment on above: Stage Description GF R, [...] Vol. 139 (2) pg 137-147. [place] [address] HEPATIC FUNCTION PANELon Albumin [Mass/Vol] 4.6 g/dL Normal 3.5-5.1 [facility] Comment on above: Performed By: #### C BCWD, EGFR1, HEPPA, ASAT, OSMOL, ACTM, BMP, ETOHS, ANION, TSH3 #### [address] [address] ALP [Catalytic activity/Vol] 101 U/L Normal 38-126 [facility] Comment on above: Performed By: #### C BCWD, EGFR1, HEPPA, ASAT, OSMOL, ACTM, BMP, ETOHS, ANION, TSH3 #### [place] [address] ALT [Catalytic activity/Vol] 40 U/L Normal 11-66 [facility] Comment on above: Performed By: #### C BCWD, EGFR1, HEPPA, ASAT, OSMOL, ACTM, BMP, ETOHS, ANION, TSH3 #### [address] [address] AST [Catalytic activity/Vol] 77 U/L High 5-40 [facility] Comment on above: Performed By: #### C BCWD, EGFR1, HEPPA, ASAT, OSMOL, ACTM, BMP, ETOHS, ANION, TSH3 #### [address] [address] Bilirubin [Mass/Vol] 1.4 mg/dL High 0.3-1.2 [facility] Comment on above: Performed By: #### C BCWD, EGFR1, HEPPA, ASAT, OSMOL, ACTM, BMP, ETOHS, ANION, TSH3 #### [address] [address] Bilirubin.direct [Mass/Vol] 0.3 mg/dL Normal 0.0-0.3 [facility] Comment on above: Performed By: #### C BCWD, EGFR1, HEPPA, ASAT, OSMOL, ACTM, BMP, ETOHS, ANION, TSH3 #### [facility] [address] [place] [address] Protein [Mass/Vol] 7.4 g/dL Normal 6.1-8.0 [facility] Comment on above: Performed By: #### C BCWD, EGFR1, HEPPA, ASAT, OSMOL, ACTM, BMP, ETOHS, ANION, TSH3 #### [facility] [address] [place] [address] Hepatic Function Panelon Albumin [Mass/Vol] 4.6 g/dL 3.5 - 5.1 g/dL [facility] ALP (Bld) [Catalytic activity/Vol] 101 U/L 38 - 126 U/L [facility] ALT [Catalytic activity/Vol] 40 U/L 11 - 66 U/L [facility] AST [Catalytic activity/Vol] 77 U/L High 5 - 40 U/L [facility] Bilirubin [Mass/Vol] 1.4 mg/dL High 0.3 - 1 .2 mg/dL [facility] Bilirubin.indirect [Mass/Vol] 0.3 mg/dL 0.0 - 0.3 mg/dL [facility] Free PSA/Total PSA [Mass fraction] 7.4 g/dL 6.1 - 8.0 g/dL [facility] Comment on above: Performed at [facility] [employer] [facility] [address] [place] [address] No Panel Informationon 03-06 Interpretation and review of laboratory results Abnormal [facility] Osmolalityon 03-06-2022 Osmolality Calc 278.0 [facility] Comment on above: Performed at [facility] [address] [place] [address] SALICYLATEon 03-06-2022 SALICYLATE < 0.3 Low 2.0-10.0 [facility] Comment on above: Performed By: #### C BCWD, EGFR1, HEPPA, ASAT, OSMOL, ACTM, BMP, ETOHS, ANION, TSH3 #### [facility] [address] [place] [address] Salicylateon 03-06-2022 Salicylate, Serum < 0.3 Low 2.0 - 10.0 mg/dL [facility] Comment on above: Performed at [facility] [address] [place] [address] TSHon 03-06-2022 TSH Qn 1.690 m[IU]/L [facility] Comment on above: Performed at [facility] [address] [place] [address] TSH THIRD GENERATIONon 03-06 TSH THIRD GENERATION 1.690 uIU/mL Normal 0.400-4.200 [facility] Comment on above: Performed By: #### C BCWD, EGFR1, HEPPA, ASAT, OSMOL, ACTM, BMP, ETOHS, ANION, TSH3 #### [facility] [address] [place] [address] UA WITH MICROSCOPICon 2021 Ketones Ql (U) 15 Abnormal NEGATIVE [facility] Comment on above: Performed By: #### C BCWD, EGFR1, HEPPA, ASAT, OSMOL, ACTM, BMP, ETOHS, ANION, TSH3 #### [facility] [address] [place] [address] Urine Drug Screenon 03-06-20 22 AMPHETAMINE+METHAMPHET AMINE URINE SCREEN Negative NEGATIVE [facility] Barbiturate Quant, Ur Negative NEGATIVE [facility] Benzodiazepine Quant, Ur Negative NEGATIVE [facility] Cannabinoid Quant, Ur Negative NEGATIVE [facility] Cocaine Metab Quant, Ur Negative NEGATIVE [facility] Opiates, Urine Negative NEGATIVE [facility] Oxycodone Negative NEGATIVE [facility] PCP Quant, Ur Negative NEGATIVE [facility] Comment on above: A Negative result for [...] are for medical use only. Performed at [facility] [address] [place] [address] [facility] Urine with Reflexed Microon 03-06-2022 Bacteria, UA NONE SEEN FEW/NONE SEEN /hpf [facility] Bilirubin Urine Negative NEGATIVE [facility] Blood, Urine LARGE Abnormal NEGATIVE [facility] CASTS 2 NONE SEEN NONE SEEN /lpf [facility] Casts UA NONE SEEN NONE SEEN /lpf [facility] Character, Urine CLEAR CLEAR-SL CLOUD [facility] Color, UA YELLOW STRAW-YELLOW [facility] Crystals, UA NONE SEEN NONE SEEN [facility] Epithelial Cells, UA 0-2 3-5/hpf /hpf [facility] Glucose, Ur Negative NEGATIVE mg/dl [facility] Interpretation and review of laboratory results Abnormal [facility] Leukocyte esterase Test strip Ql (U) Negative NEGATIVE [facility] MISCELLANEOUS 2 NONE SEEN [facility] Comment on above: Performed at [facility] [address] [place] [address] Nitrite, Urine Negative NEGATIVE [facility] pH, UA 5.5 [facility] Protein, UA 300 Abnormal NEGATIVE [facility] RBC, UA 0-2 0-2/hpf /hpf [facility] Renal Epithelial, UA NONE SEEN NONE SEEN [facility] Specific [place], Urine 1.016 [facility] Urobilinogen, Urine 0.2 [facility] WBC, UA 0-2 0-4/hpf /hpf [facility] Yeast, UA NONE SEEN NONE SEEN [facility] ALCOHOL MEDICALon 04-24-2020 ALCOHOL MEDICAL 324 mg/dL Critically high <10 [facility] Comment on above: Order Comment: RAISSA Davis ER 04/24/2020, 18:11, , Result called to Dr. Wagner in ER - [facility] Result Comment: Effe ctive 12-19-08 new methodology and new instrumentation: lower reportable range is 10 mg/dl. [place] legal limit of intoxication is 80 mg/dl or 0.08 g/dl. [facility] REPORTS OUT IN MG/DL Performed By: #### E TO #### [address] [address] [facility] 0 HR DRAWon 04-24-2020 Troponin I.cardiac [Mass/Vol] ng/mL Normal 0.012-0.120 [facility] Comment on above: Result Comment: RE FERENCE RANGE IS 0.012 - 0.120 ng/ml cTnI - The cutoff of 0.120 ng/ml is recommended for diagnosis of AMI, yielding optimal performance of 95% sensitivity and 93% specificity. Performed By: #### C TP0 #### [place] [address] CARP1 3 HR DRAWon 04-24-2020 Troponin I.cardiac [Mass/Vol] ng/mL Normal 0.012-0.120 [facility] Comment on above: Result Comment: RE FERENCE RANGE IS 0.012 - 0.120 ng/ml cTnI - The cutoff of 0.120 ng/ml is recommended for diagnosis of AMI, yielding optimal performance of 95% sensitivity and 93% specificity. Performed By: #### M AG #### [place] [address] CBC WITH DIFFERENTIALon 03-30 Basophils (Bld) [#/Vol] 0.09 10*3/uL Normal 0.00-0.20 [facility] Comment on above: Performed By: #### C BCD #### [place] [id number] Basophils/100 WBC (Bld) 1.4 % Normal 0.0-2.0 [facility] Comment on above: Performed By: #### C BCD #### [place] [id number] Eosinophils (Bld) [#/Vol] 0.09 10*3/uL Normal 0.00-0.50 [facility] Comment on above: Performed By: #### C BCD #### [address] [address] Eosinophils/100 WBC (Bld) 1.4 % Normal 0.0-4.0 [facility] Comment on above: Performed By: #### C BCD #### [address] [address] Erythrocyte distribution width (RBC) [Ratio] 11.9 % Normal 11.5-14.5 [facility] Comment on above: Performed By: #### C BCD #### [address] [address] Hematocrit (Bld) [Volume fraction] 45.1 % Normal 42.0-54.0 [facility] Comment on above: Performed By: #### C BCD #### [address] [address] Hemoglobin (Bld) [Mass/Vol] 15.9 g/dL Normal 14.0-18.0 [facility] Comment on above: Performed By: #### C BCD #### [address] [address] Lymphocytes (Bld) [#/Vol] 2.18 10*3/uL Normal 1.00-4.80 [facility] Comment on above: Performed By: #### C BCD #### [address] [address] Lymphocytes/100 WBC (Bld) 34.5 % Normal 24.0-44.0 [facility] Comment on above: Performed By: #### C BCD #### [address] [address] MCH (RBC) [Entitic mass] 33.3 pg High 25.6-32.2 [facility] Comment on above: Performed By: #### C BCD #### [address] [address] MCHC (RBC) [Mass/Vol] 35.3 g/dL Normal 32.0-36.0 [facility] Comment on above: Performed By: #### C BCD #### [address] [address] MCV (RBC) [Entitic vol] 94.5 fL Normal 82.0-98.0 [facility] Comment on above: Performed By: #### C BCD #### [address] [address] Monocytes (Bld) [#/Vol] 0.48 10*3/uL Normal 0.20-1.20 [facility] Comment on above: Performed By: #### C BCD #### [address] [address] Monocytes/100 WBC (Bld) 7.6 % Normal 5.0-12.0 [facility] Comment on above: Performed By: #### C BCD #### [address] [address] Neutrophils (Bld) [#/Vol] 3.46 10*3/uL Normal 2.00-7.50 [facility] Comment on above: Performed By: #### C BCD #### [address] [address] Neutrophils/100 WBC (Bld) 54.8 % Normal 36.0-66.0 [facility] Comment on above: Performed By: #### C BCD #### [address] [address] NRBC COUNT 0.00 Normal 0.00-0.50 [facility] Comment on above: Performed By: #### C BCD #### [address] [address] Nucleated RBC/100 WBC (Bld) [Ratio] 0.0 % Normal [facility] Comment on above: Performed By: #### C BCD #### [address] [address] Platelet mean volume (Bld) [Entitic vol] 8.7 fL Low 9.4-12.4 [facility] Comment on above: Performed By: #### C BCD #### [address] [address] Platelets (Bld) [#/Vol] 213 10*3/uL Normal 150-400 [facility] Comment on above: Performed By: #### C BCD #### [address] [address] RBC (Bld) [#/Vol] 4.77 10*6/uL Normal 4.20-5.60 [facility] Comment on above: Performed By: #### C BCD #### [address] [address] WBC (Bld) [#/Vol] 6.32 10*3/uL Normal 4.80-10.80 [facility] Comment on above: Performed By: #### C BCD #### [address] [address] COMPREHENSIVE METABOLIC PANE [place] 04-24-2020 ALK PHOS 81 U/L Normal 38-126 [facility] Comment on above: Performed By: #### M ODP #### [address] [address] ALT [Catalytic activity/Vol] 58 U/L Normal 21-72 [facility] Comment on above: Performed By: #### M ODP #### [address] [address] AST [Catalytic activity/Vol] 84 U/L High 17-59 [facility] Comment on above: Performed By: #### M ODP #### [address] [address] Calcium [Mass/Vol] 8.6 mg/dL Normal 8.4-10.2 [facility] Comment on above: Performed By: #### M ODP #### [address] [address] Glucose [Mass/Vol] 85 mg/dL Normal 70-100 [facility] Comment on above: Performed By: #### M ODP #### [address] [address] Protein [Mass/Vol] 7.3 g/dL Normal 6.0-8.2 [facility] Comment on above: Performed By: #### M ODP #### [address] [address] Urea nitrogen [Mass/Vol] 9 mg/dL Normal 7-22 [facility] Comment on above: Performed By: #### M ODP #### [address] [address] Anion gap [Moles/Vol] 15.9 mmol/L Normal 10-14 [facility] Comment on above: Performed By: #### M ODP #### [address] [address] Bilirubin Ql (U) 2.4 mg/dL High 0.2-1.2 [facility] Comment on above: Performed By: #### M ODP #### [address] [address] CO2 [Moles/Vol] 18.0 mm/Hg Low 22.0-30.0 [facility] Comment on above: Performed By: #### M ODP #### [address] [address] Creatinine [Mass/Vol] 0.70 mg/dL Low 0.80-1.50 [facility] Comment on above: Performed By: #### M ODP #### [address] [address] GFR/1.73 sq M predicted among non-blacks MDRD (S/P/Bld) [Vol rate/Area] 126 mL/min/1.73 m2 Normal >60 [facility] Comment on above: Result Comment: Refe rence [...] OR very young -Races other than or -Salvadorean -People with acute illnesses, amputations, or acute kidney failure. Estimated GFR should be interpreted in clinical context and an alternative method such as a timed urine collection for creatinine clearance used to verify questionable results. (Ref. [employer] 2015) Performed By: #### M ODP #### [address] [address] Albumin [Mass/Vol] 4.2 g/dL Normal 3.5-5.0 [facility] Comment on above: Performed By: #### M ODP #### [address] [address] Chloride [Moles/Vol] 110 mmol/L Normal 100-110 [facility] Comment on above: Performed By: #### M ODP #### [address] [address] Potassium [Moles/Vol] 3.5 mmol/L Normal 3.5-5.0 [facility] Comment on above: Performed By: #### M ODP #### [address] [address] Sodium [Moles/Vol] 143 mmol/L Normal 136-145 [facility] Comment on above: Performed By: #### M ODP #### [place] [address] CT-ABDOMEN & PELVIS WITH CON TRAST (NO [...] described. Read By: LAN HOWARD, MONCHO Ellis [facility] Comment on above: Order Comment: Fall 10 [...] as described. Read By: MONCHO MONTENEGRO MD [facility] Comment on above: Order Comment: Fall 10 [...] intracranial process. Read By: MONCHO MONTENEGRO MD [facility] LIPASEon 04-24-2020 Lipase [Catalytic activity/Vol] 122 U/L Normal 23-300 [facility] Comment on above: Performed By: #### L IP #### [address] [address] MAGNESIUMon 04-24-2020 Magnesium [Mass/Vol] 1.8 mg/dL Normal 1.7-2.2 [facility] Comment on above: Performed By: #### M AG #### [address] [address] MEDTOX URINE DRUG SCREENon 0 04-24-2020 AMPHETAMINE SCREEN Negative Normal [facility] Comment on above: Performed By: #### T RIAG #### [address] [address] BARBITUATE SCREEN Negative Normal [facility] Comment on above: Performed By: #### T RIAG #### [address] [address] BENZODIAZEPINE SCREEN Negative Normal [facility] Comment on above: Performed By: #### T RIAG #### [address] [address] COCAINE SCREEN Negative [facility] Comment on above: Performed By: #### T RIAG #### [address] [address] METHADONE SCREEN Negative Normal [facility] Comment on above: Performed By: #### T RIAG #### [address] [address] METHAMPHETAMINE SCREEN Negative Normal [facility] Comment on above: Performed By: #### T RIAG #### [address] [address] OPIATE SCREEN Positive Abnormal [facility] Comment on above: Performed By: #### T RIAG #### [address] [address] OXYCODONE SCREEN Negative Normal [facility] Comment on above: Performed By: #### T RIAG #### [address] [address] PCP SCREEN Negative Normal [facility] Comment on above: Performed By: #### T RIAG #### [address] [address] PROPOXYPHENE SCREEN Negative Normal [facility] Comment on above: Result Comment: ANALYTE THRESHOLD [...] days. Performed By: #### T RIAG #### [address] [address] THC SCREEN Negative Normal [facility] Comment on above: Performed By: #### T RIAG #### [address] [address] TRICYCLICS SCREEN Negative Normal [facility] Comment on above: Performed By: #### T RIAG #### [address] [address] PHOSPHORUSon 04-24-2020 Phosphate [Mass/Vol] 2.8 mg/dL Normal 2.5-4.6 [facility] Comment on above: Performed By: #### P HOS #### [address] [address] PROTIMEon 04-24-2020 INR Coag (PPP) [Relative time] 0.9 {INR} Low 1.0-3.0 [facility] Comment on above: Result Comment: THERAPEUTIC RANGES FOR INR: GROUP A (2.0 - 3.0) GROUP B (2.5 - 3.5) INDICATIONS FOR GROUP A: Prophylaxis and treatment of DVT, treatment of pulmonary embolism, prevention of systemic embolism, tissue heart valves, acute MS, valvular heart disease, and atrial fibrillation. INDICATION FOR GROUP B: Recurrent systemic embolism, mechanical prostetic valves, prevention of recurrent MS. -- INR STEPHANIE = 1.0 Performed By: #### P TINR #### [address] [address] PT Coag (PPP) [Time] 10.1 s Normal 9.6-11.5 [facility] Comment on above: Performed By: #### P TINR #### [address] [address] PTTon 04-24-2020 aPTT Coag (Bld) [Time] 26 s Normal 23-31 [facility] Comment on above: Performed By: #### P TT #### [address] [address] Anion Gapon 11-27-2019 Anion gap [Moles/Vol] 18.0 mmol/L High 8 - 16 meq/L [place] Comment on above: ANION GAP = Sodium - (Chloride + CO2) Performed at [facility] [address] [place] [phone] Basic Metabolic Panelon 10-31 Calcium [Mass/Vol] 9.0 mg/dL 8.5 - 10. 5 mg/dL [place] Comment on above: Performed at [facility] [address] [place] [phone] Chloride [Moles/Vol] 105 mmol/L 98 - 11 1 meq/L [place] CO2 [Moles/Vol] 19 mmol/L Low 23 - 33 meq/L [place] Creatinine [Mass/Vol] 0.6 mg/dL 0.4 - 1.2 mg/dL [place] Glucose [Mass/Vol] 93 mg/dL 70 - 108 mg/dL [place] Potassium [Moles/Vol] 3.5 mmol/L 3.5 - 5.2 meq/L [place] Sodium [Moles/Vol] 142 mmol/L 135 - 145 meq/L [place] Urea nitrogen [Mass/Vol] 10 mg/dL 7 - 22 mg/dL [place] CBC auto differentialon 10-31 Basophils (Bld) [#/Vol] 0.1 10*3/uL [place] Basophils/100 WBC (Bld) 0.9 % [place] Eosinophils (Bld) [#/Vol] 0.1 10*3/uL [place] Eosinophils/100 WBC (Bld) 0.9 % [place] Erythrocyte distribution width (RBC) [Ratio] 13.7 % 11.5 - 14.5 % [place] Hematocrit (Bld) [Volume fraction] 50.1 % 42 - 52 % [place] Hemoglobin (Bld) [Mass/Vol] 16.9 g/dL [place] Immature Grans (Abs) 0.03 [place] Immature granulocytes (Bld) [#/Vol] 0.3 % [place] Interpretation and review of laboratory results Abnormal [place] Lymphocytes (Bld) [#/Vol] 2.3 10*3/uL [place] Lymphocytes/100 WBC (Bld) 24.4 % [place] MCH (RBC) [Entitic mass] 33.6 pg High 26 - 33 pg [place] MCHC (RBC) [Mass/Vol] 33.7 g/dL [place] MCV (RBC) [Entitic vol] 99.6 fL High 80 - 94 fL [place] Monocytes (Bld) [#/Vol] 0.8 10*3/uL [place] Monocytes/100 WBC (Bld) 8.3 % [place] Nucleated RBC/100 WBC (Bld) [Ratio] 0 % /100 wbc [place] Comment on above: Performed at [facility] [address] [place] [phone] Platelet mean volume (Bld) [Entitic vol] 8.8 fL Low 9.4 - 12.4 fL [place] Platelets (Bld) [#/Vol] 195 10*3/uL [place] RBC (Bld) [#/Vol] 5.03 10*6/uL [place] RDW-SD 50.5 fL High 35 - 45 fL [place] Segmented neutrophils/100 WBC (Bld) 65.2 % [place] Segs Absolute 6.2 [place] WBC (Bld) [#/Vol] 9.5 10*3/uL [place] Ethanolon 11-27-2019 ETHYL ALCOHOL, SERUM 0.38 % 0.00 [place] Comment on above: Performed at [facility] [address] [place] [phone] Glomerular Filtration Rate, Estimatedon 11-27-2019 Est, Glom Filt Rate >90 ml/min/1.73m2 [place] Comment on above: Stage Description GF [...] Vol. 139 (2) pg 137-147. Performed at [facility] [address] [place] [address] Hepatic function panelon Albumin [Mass/Vol] 4.4 g/dL 3.5 - 5.1 g/dL [place] ALP [Catalytic activity/Vol] 89 U/L 38 - 126 U/L [place] ALT [Catalytic activity/Vol] 87 U/L High 11 - 66 U/L [place] AST [Catalytic activity/Vol] 86 U/L High 5 - 40 U/L [place] Bilirubin Ql (U) 1.1 mg/dL 0.3 - 1.2 mg/dL [place] Bilirubin.direct [Mass/Vol] mg/dL 0 - 0.3 mg/dL [place] Protein [Mass/Vol] 7.4 g/dL 6.1 - 8 g/dL [place] Comment on above: Performed at [facility] [address] [place] [phone] Lipaseon 11-27-2019 Lipase [Catalytic activity/Vol] 29.1 U/L 5.6 - 51.3 U/L [place] Comment on above: Performed at [facility] [address] [place] [phone] Osmolalityon 11-27-2019 Osmolality Calc 281.9 [place], [place] Comment on above: Performed at [facility] [address] [place] [id number] Otheron 11-27-2019 Interpretation and review of laboratory results Abnormal [place] Vital Signs Date Time Vital Sign Value Performing Clinician Facility 12-11-2023 13:02-0400 Body height 180.3 cm Mariia Govea MD Work Phone: [facility] 12-11-2023 13:02-0400 Body mass index (BMI) [Ratio] 29.4 kg/m2 Mraiia Govea MD Work Phone: [facility] 12-11-2023 13:02-0400 Body weight 95.62 kg Mariia Govea MD Work Phone: [facility] 12-11-2023 13:02-0400 Diastolic blood pressure 90 mm[Hg] Mariia Govea MD Work Phone: [facility] 12-11-2023 13:02-0400 Systolic blood pressure 146 mm[Hg] Mariia Govea MD Work Phone: [facility] 12-07-2023 07:00-0400 Body temperature 97.59 [degF] Martha Lua MD Work Phone: [facility] 12-07-2023 07:00-0400 Diastolic blood pressure 123 mm[Hg] Martha Lua MD Work Phone: [facility] 12-07-2023 07:00-0400 Heart rate 84 /min Martha Lua MD Work Phone: [facility] 12-07-2023 07:00-0400 Respiratory rate 16 /min Martha Lua MD Work Phone: [facility] 12-07-2023 07:00-0400 SaO2% (BldA) [Mass fraction] 95 % Matrha Lua MD Work Phone: [facility] 12-07-2023 07:00-0400 Systolic blood pressure 167 mm[Hg] Martha Lua MD Work Phone: [facility] 12-07-2023 04:34-0400 Body mass index (BMI) [Ratio] 29.83 kg/m2 Martha Lua MD Work Phone: [facility] 12-07-2023 04:34-0400 Body weight 97 kg Martha Lua MD Work Phone: [facility] 12-06-2023 05:17-0500 Body height 180.3 cm Martha Lua MD Work Phone: [facility] 12-05-2023 10:00-0500 Heart rate 112 /min Amy Odom DO Work Phone: [facility] 12-05-2023 10:00-0500 Respiratory rate 15 /min Amy Odom DO Work Phone: [facility] 12-05-2023 07:00-0500 Body temperature 97.81 [degF] Amy Odom DO Work Phone: [facility] 12-05-2023 07:00-0500 Diastolic blood pressure 105 mm[Hg] Amy Odom DO Work Phone: [facility] Comment on above: nurse andre sanford 12-05-2023 07:00-0500 SaO2% (BldA) [Mass fraction] 95 % Amy Odom DO Work Phone: [facility] 12-05-2023 07:00-0500 Systolic blood pressure 179 mm[Hg] Amy Odom DO Work Phone: [facility] Comment on above: nurse andre sanford 12-04-2023 17:45-0500 Body height 180.3 cm Amy Odom DO Work Phone: [facility] 12-04-2023 17:45-0500 Body mass index (BMI) [Ratio] 29.61 kg/m2 Amy Odom DO Work Phone: [facility] 12-04-2023 17:45-0500 Body weight 96.3 kg Amy Odom DO Work Phone: [facility] 10-24-2023 20:10-0500 Heart rate 104 /min Samir Wooten DO Work Phone: [facility] 10-24-2023 20:10-0500 Respiratory rate 23 /min Samir Wooten DO Work Phone: [facility] 10-24-2023 20:10-0500 SaO2% (BldA) [Mass fraction] 94 % Samir Wooten DO Work Phone: [facility] 10-24-2023 20:00-0500 Body temperature 97.9 [degF] Samir Wooten DO Work Phone: [facility] 10-24-2023 20:00-0500 Diastolic blood pressure 107 mm[Hg] Samir Wooten DO Work Phone: [facility] 10-24-2023 20:00-0500 Systolic blood pressure 159 mm[Hg] Samir Wooten DO Work Phone: [facility] 10-23-2023 19:52-0500 Body height 180.3 cm Samir Wooten DO Work Phone: [facility] 10-23-2023 19:52-0500 Body mass index (BMI) [Ratio] 31.67 kg/m2 Samir Wooten DO Work Phone: [facility] 10-23-2023 19:52-0500 Body weight 103 kg Samir Wooten DO Work Phone: [facility] 08-29-2023 09:28-0500 Diastolic blood pressure 70 mm[Hg] Apolinar Cameron II, DO Work Phone: [facility] 08-29-2023 09:28-0500 Systolic blood pressure 130 mm[Hg] Apolinar Cameron II, DO Work Phone: [facility] 08-29-2023 07:43-0500 Body height 180.3 cm Apolinar Cameron II, DO Work Phone: [facility] 08-29-2023 07:43-0500 Body mass index (BMI) [Ratio] 31.83 kg/m2 Apolinar Cameron II, DO Work Phone: [facility] 08-29-2023 07:43-0500 Body weight 103.53 kg Apolinar Cameron II, DO Work Phone: [facility] 08-29-2023 07:43-0500 Heart rate 85 /min Apolinar Cameron II DO Work Phone: [facility] 08-29-2023 07:43-0500 Respiratory rate 12 /min Apolinar Cameron II DO Work Phone: [facility] 08-29-2023 07:43-0500 SaO2% (BldA) [Mass fraction] 97 % Apolinar Cameron II DO Work Phone: [facility] 04-30-2023 12:28-0400 Diastolic blood pressure 100 mm[Hg] Ihsan Pink DO Work Phone: [facility] 04-30-2023 12:28-0400 Heart rate 100 /min Ihsan Pink DO Work Phone: [facility] 04-30-2023 12:28-0400 Respiratory rate 20 /min Ihsan Pink DO Work Phone: [facility] 04-30-2023 12:28-0400 SaO2% (BldA) [Mass fraction] 96 % Ihsan Pink DO Work Phone: [facility] 04-30-2023 12:28-0400 Systolic blood pressure 160 mm[Hg] Ihsan Pink DO Work Phone: [facility] 04-30-2023 08:57-0400 Body height 180.3 cm Ihsan Pink DO Work Phone: [facility] 04-30-2023 08:56-0400 Body temperature 97.59 [degF] Ihsan Pink DO Work Phone: [facility] 01-31-2023 11:56-0400 Diastolic blood pressure 80 mm[Hg] Apolinar Cameron II, DO Work Phone: [facility] 01-31-2023 11:56-0400 Systolic blood pressure 120 mm[Hg] Apolinar Cameron II, DO Work Phone: [facility] 01-31-2023 10:55-0400 Body height 180.3 cm Apolinar Cameron II, DO Work Phone: [facility] 01-31-2023 10:55-0400 Body mass index (BMI) [Ratio] 28.8 kg/m2 Apolinar Cameron II, DO Work Phone: [facility] 01-31-2023 10:55-0400 Body weight 93.67 kg Apolinar Cameron TOM, DO Work Phone: [facility] 01-31-2023 10:55-0400 Heart rate 86 /min Apolinar Cameron II, DO Work Phone: [facility] 01-31-2023 10:55-0400 Respiratory rate 12 /min Apolinar Cameron II, DO Work Phone: [facility] 01-31-2023 10:55-0400 SaO2% (BldA) [Mass fraction] 97 % Apolinar Cameron II, DO Work Phone: [facility] 10-02-2022 09:34-0500 Diastolic blood pressure 80 mm[Hg] Apolinar Cameron II, DO Work Phone: [facility] 10-02-2022 09:34-0500 Systolic blood pressure 126 mm[Hg] Apolinar Cameron II, DO Work Phone: [facility] 10-02-2022 08:59-0500 Body height 180.3 cm Apolinar Cameron II, DO Work Phone: [facility] 10-02-2022 08:59-0500 Body mass index (BMI) [Ratio] 29.85 kg/m2 Apolinar Cameron II DO Work Phone: [facility] 10-02-2022 08:59-0500 Body weight 97.07 kg Apolinar Cameron II DO Work Phone: [facility] 10-02-2022 08:59-0500 Heart rate 97 /min Apolinar Cameron II DO Work Phone: [facility] 10-02-2022 08:59-0500 Respiratory rate 12 /min Apolinar Cameron II DO Work Phone: [facility] 10-02-2022 08:59-0500 SaO2% (BldA) [Mass fraction] 97 % Apolinar Cameron II DO Work Phone: [facility] 03-07-2022 12:08-0400 Diastolic blood pressure 101 mm[Hg] Apolinar Cameron II, MD Work Phone: [facility] 03-07-2022 12:08-0400 Heart rate 99 /min Apolinar Cameron II, MD [facility] 03-07-2022 12:08-0400 Respiratory rate 18 /min Apolinar Cameron II, MD Work Phone[facility] 03-07-2022 12:08-0400 SaO2% (BldA) [Mass fraction] 95 % Apolinar Cameron II, MD Work Phone: [facility] 03-07-2022 12:08-0400 Systolic blood pressure 144 mm[Hg] Apolinar Cameron II, MD Work Phone: [facility] 03-06-2022 20:59-0400 Body temperature 98.2 [degF] Apolinar Cameron II, MD Work Phone: [facility] 10-25-2021 09:04-0500 Body height 175.3 cm Apolinar Cameron II, DO Work Phone: [facility] 10-25-2021 09:04-0500 Body mass index (BMI) [Ratio] 36.05 kg/m2 Apolinar Cameron II, DO Work Phone: [facility] 10-25-2021 09:04-0500 Body weight 110.73 kg Apolinar Cameron II, DO Work Phone: [facility] 11-27-2019 16:40-0500 BP Diastolic 83 mm[Hg] [facility] [employer] [place] [facility], [place] 11-27-2019 16:40-0500 BP Systolic 131 mm[Hg] [facility] [place] MedeirosPublic Good SoftwarerichardsonSoniqplay- O Register [employer], [place] 11-27-2019 16:40-0500 Pulse (Heart Rate) 97 /min [facility] [place] SabillonCurtume Er[place], [place] 11-27-2019 16:40-0500 Pulse Oximetry 91 % [facility] [place] MedeirosPublic Good Softwareheartland behavioral health servicesSparksfly Technologies, [place] 11-27-2019 16:40-0500 Respiratory Rate 19 /min [facility] [place] MedeirosPublic Good SoftwarerichardsonRunner, [place] 11-27-2019 15:08-0500 Body Temperature 98.4 [degF] [facility] [place] MedeirosPublic Good SoftwarerichardsonRunner, [place] 11-27-2019 15:08-0500 Body weight 95.25 kg [facility] [place] SabillonSparksfly Technologies, [place] Encounters Encounter Date Encounter Type Care Provider Facility Start: 12-11-2023 ambulatory SELF SELF Facility:[facility] Start: 12-11-2023 End: 12-11-2023 Office outpatient new 30 minutes Mariia Govea MD Work Phone: [facility] Comment on above: Avascular necrosis o f right femoral head (Primary Dx); Primary osteoarthritis of right hip; Tobacco abuse Start: 12-06-2023 End: 12-07-2023 Evaluation and management of inpatient HECTOR EDWARDS Facility:[facility] Start: 12-06-2023 End: 12-07-2023 Evaluation and management of inpatient Hector Edwards DO Work Phone: [facility] Comment on above: Alcohol abuse with w armandodrawal Start: 12-04-2023 End: 12-05-2023 ambulatory IHSAN PINK Facility:[facility] Start: 12-04-2023 End: 12-05-2023 Emergency department patient visit Jeanie Churchill MD, PhD Work Phone: [facility] Comment on above: Hip pain Start: 11-09-2023 End: 11-10-2023 [facility] Start: 10-31-2023 ambulatory SELF SELF Facility:[facility] Start: 10-23-2023 End: 10-24-2023 ambulatory HECTOR DOUGLAS Facility:[facility] Start: 10-23-2023 End: 10-24-2023 Emergency department patient visit Urbano Laird MD, PhD Work Phone: [facility] Comment on above: Alcohol intoxication in active alcoholic Start: 10-13-2023 ambulatory APOLINAR E CAMERON II Facilit y:[facility] Start: 08-29-2023 ambulatory APOLINAR E CAMERON II [facility] [facility] Start: 08-29-2023 End: 08-29-2023 Office outpatient visit 25 minutes Apolinar Cameron DO Work Phone: [facility] Comment on above: Essential hypertensi on, benign (Primary Dx); Neuralgia of left upper extremity; Episodic tension-type headache, not intractable Start: 04-30-2023 End: 04-30-2023 Emergency department patient visit IHSAN PINK Facility:[facility] Start: 04-30-2023 End: 04-30-2023 Emergency department patient visit Ihsan Pink DO Work Phone: [facility] Emergency Department Start: 02-18-2023 ambulatory TERESA CHIQUITA Facility:[facility] Start: 02-07-2023 ambulatory APOLINAR E CAMERON II Facilit y:[facility] Start: 01-31-2023 ambulatory APOLINAR E CAMERON II Facilit y:[facility] Start: 01-31-2023 End: 01-31-2023 Office outpatient visit 25 minutes Apolinar Owen Cameron DO Work Phone: [facility] Comment on above: Essential hypertensi on, benign (Primary Dx); Restless leg; Primary insomnia; Special screening for malignant neoplasm of prostate; Bilateral anterior knee pain Start: 10-02-2022 End: 10-02-2022 Office outpatient visit 25 minutes Apolinar Cameron DO Work Phone: [facility] Comment on above: Essential hypertensi on, benign (Primary Dx); Bronchitis, not specified as acute or chronic; Panic anxiety syndrome Start: 03-06-2022 End: 03-07-2022 Emergency department patient visit APOLINAR CAMERON II [facility] Start: 03-06-2022 End: 03-07-2022 Emergency department patient visit Apolinar Cameron II, MD Work Phone: [facility] Comment on above: Acute alcoholic into xication with complication (HCC) (Primary Dx) Start: 10-25-2021 End: 10-25-2021 Office outpatient visit 25 minutes Apolinar Cameron DO Work Phone: [facility] Comment on above: Essential hypertensi on, benign (Primary Dx); Need for viral immunization; Muscle tension headache; Restless leg Start: 11-27-2019 End: 11-27-2019 Emergency department patient visit Frederick Kemp Work Phone: [facility] Comment on above: Acute [...] metabolic pane l calcium total Elvis Colbert OPERATIONS OFFICER-SHEET METAL MECHANIC Work Phone: Start: 10-23-2023 Assay of troponin quantitative Elvis Colbert OPERATIONS OFFICER-SHEET METAL MECHANIC Work Phone: Start: 10-23-2023 CARDIAC RHYTHM Other [...] End: 10-23-2023 Assay of lipase Elvis Colbert OPERATIONS OFFICER-SHEET METAL MECHANIC Work Phone: Start: 08-29-2023 Lipid 1996 panel [...] 03-06-2022 URINE WITH REFLEXED MICRO Ivonne Ritter OPERATIONS OFFICER - SHEET METAL MECHANIC Work Phone: Start: 03-06-2022 Anion gap [Moles/Vol] K tony Ritter OPERATIONS OFFICER - SHEET METAL MECHANIC Work Phone: Start: 03-06-2022 Assay of acetaminophen Ivonne Ritter OPERATIONS OFFICER - SHEET METAL MECHANIC Work Phone: Start: 03-06-2022 Assay of ethanol Ivonne Ritter OPERATIONS OFFICER [employer] SHEET METAL MECHANIC Work Phone: Start: 03-06-2022 Assay of salicylate Ilana MillsServeronemily OPERATIONS OFFICER [employer] SHEET METAL MECHANIC Work Phone: Start: 03-06-2022 Basic metabolic pane l calcium total Ivonne Ritter OPERATIONS OFFICER [employer] SHEET METAL MECHANIC Work Phone: Start: 03-06-2022 GLOMERULAR FILTRATIO N RATE, ESTIMATED Ivonne Ritter locr SHEET METAL MECHANIC Work Phone: Start: 03-06-2022 End: 03-06-2022 Hepatic function panel Ivonne Ritter OPERATIONS OFFICER [employer] SHEET METAL MECHANIC Work Phone: Start: 03-06-2022 Ecg routine ecg w/le ast 12 lds w/i&r Ivonne Ritter APRN [employer] [facility] Work Phone: Start: 11-27-2019 Anion gap [...] routine ecg w/le ast 12 lds w/i&r rFederick Kemp Work Phone: Plan of Treatment Date Care Activity Detail Author Start: 03-07-2031 DTaP/Tdap/Td vaccine (2 - Td or Tdap) DTaP/Tdap/Td vaccine (2 - Td or Tdap) [facility] Start: 03-07-2031 Tetanus vaccination [facility] Start: 08-29-2028 Lipid panel LIPID SCREENING [facility] Start: 08-29-2024 Prostate specific antigen measurement PROSTATE CANCER SCREENING DISCUSSION [facility] Start: 02-01-2024 Prostate specific antigen measurement PROSTATE CANCER SCREENING DISCUSSION [facility] Start: 12-31-2023 End: 12-31-2023 Patient encounter procedure 12/31/2023 9:30 AM EDT Office Visit [facility] [address] [address] Teresa Mo MD [address] [address] [facility] Start: 12-11-2023 End: 12-10-2024 NICOTINE SCREEN URINE NICOTINE SCREEN URINE Lab Routine Tobacco abuse Expected: 12/11/2023, Expires: 12/10/2024 [facility] Work Phone: Comment on above: Expected: 12/11/2023 , Expires: 12/10/2024 Start: 12-11-2023 End: 12-11-2023 Patient encounter procedure 12/11/2023 1:00 PM EDT Office Visit [facility] [address] [place] [address] Mariia Govea MD [address] [place] [address] [facility] Start: 10-31-2023 End: 10-31-2023 Patient encounter procedure 10/31/2023 11:30 AM EST Office Visit [facility] [address] [facility] [address] [place] [address] - Apolinar Cameron II, DO [address] [facility] [address] [place] [address] [facility] Start: 08-29-2023 End: 08-29-2024 VITAMIN B1 [facility] [employer] Phone: Comment on above: Expected: 08/29/2023 , Expires: 08/29/2024 Start: 08-29-2023 End: 08-29-2024 VITAMIN B6 [facility] [employer] Phone: Comment on above: Expected: 08/29/2023 , Expires: 08/29/2024 Start: 05-30-2023 COVID-19 VACCINE ( season) COVID-19 VACCINE ( season) [facility] Start: 05-30-2023 Influenza vaccination [facility] Start: 01-31-2023 End: 02-01-2024 Complete blood count with white cell differential, automated CBC, EDIF, PLATELET Lab Routine Essential hypertension, benign Restless leg Primary insomnia Expected: 01/31/2023, Expires: 02/01/2024 [employer] Phone: Comment on above: Expected: 01/31/2023 , Expires: 02/01/2024 Start: 01-31-2023 End: 02-01-2024 Comprehensive metabolic 2000 panel - Serum or Plasma COMPREHENSIVE METABOLIC PANEL Lab Routine Essential hypertension, benign Expected: 01/31/2023, Expires: 02/01/2024 [email or web address] [facility] [employer] Phone: Comment on above: Expected: 01/31/2023 , Expires: 02/01/2024 Start: 01-31-2023 End: 02-01-2024 IRON AND TOTAL IRON BINDING CAPACITY IRON AND TOTAL IRON BINDING CAPACITY Lab Routine Restless leg Expected: 01/31/2023, Expires: 02/01/2024 [employer] Phone: Comment on above: Expected: 01/31/2023 , Expires: 02/01/2024 Start: 01-31-2023 End: 02-01-2024 LIPID PANEL W CALCULATED LDL LIPID PANEL W CALCULATED LDL Lab Routine Essential hypertension, benign Expected: 01/31/2023, Expires: 02/01/2024 [employer] Phone: Comment on above: Expected: 01/31/2023 , Expires: 02/01/2024 Start: 01-31-2023 End: 02-01-2024 PSA screening PSA, SCREENING Lab Routine Special screening for malignant neoplasm of prostate Expected: 01/31/2023, Expires: 02/01/2024 [employer] Phone: Comment on above: Expected: 01/31/2023 , Expires: 02/01/2024 Start: 01-31-2023 End: 02-01-2024 Thyrotropin [Units/volume] in Serum or Plasma TSH Lab Routine Essential hypertension, benign Primary insomnia Expected: 01/31/2023, Expires: 02/01/2024 [employer] Phone: Comment on above: Expected: 01/31/2023 , Expires: 02/01/2024 Start: 09-07-2022 Colonoscopy COLORECTAL CAN CER SCREENING DISCUSSION [facility] Start: 09-07-2022 Screening for malign ant neoplasm of colon COLORECTAL CANCER SCREENING DISCUSSION [facility] Start: 05-30-2022 Influenza vaccination B ON [facility] Start: 03-07-2022 Prostate specific antigen measurement PROSTATE CANCER SCREENING DISCUSSION [facility] Start: 12-20-2021 Zoster vaccine hzv l eleonora for subcutaneous use ZOSTER (SHINGLES) VACCINE (3 of 3) [facility] Start: 05-30-2021 Influenza vaccination INFLUENZA VACC INE (#1) [facility] Start: 02-21-2021 COVID-19 VACCINE (2 - Booster for Grisel series) COVID-19 VACCINE (2 - Booster for Grisel series) [facility] Start: 05-30-2019 Influenza vaccination Flu vaccine (# 1) [place] Start: 2008 Fasting lipid profile LIPID SCREENIN G [facility] Start: 2008 Lipid panel LIPID SCREENING [facility] Start: 1987 Hepatitis B vaccination HEP B VACCINE (1 of 3 - 19+ 3-dose series) [facility] Start: 1974 PNEUMOCOCCAL VACCINE SERIES (1 - PCV) PNEUMOCOCCAL VACCINE SERIES (1 - PCV) [facility] Start: 1974 PNEUMOCOCCAL VACCINE SERIES (1 of 2 - PCV) PNEUMOCOCCAL VACCINE SERIES (1 of 2 - PCV) [facility] Start: 1974 PNEUMOCOCCAL VACCINE SERIES (1 of 2 - PPSV23) PNEUMOCOCCAL VACCINE SERIES (1 of 2 - PPSV23) [facility] Start: 1973 COVID-19 Vaccine (1) COVID-19 Vaccin e (1) [facility] Behav assmt w/score & docd/stand instrument NC BEHAV ASSMT W/SCORE & DOCD/STAND INSTRUMENT NC Charge Routine Panic anxiety syndrome Ordered: 10/02/2022 [employer] Work Phone: Comment on above: Ordered: 10/02/2022 EKG 12 Lead EKG 12 Lead ECG Routine 03/06/2022 8:56 PM EDT [facility]: EKG Emergency EKG Emergency EC G STAT 11/27/2019 2:59 PM [place], [place] Standard ECG ECG ECG STAT 05/2024 1:51 AM [facility] [employer] Phone: Standard ECG ECG ECG Routine 12/06/2023 4:53 AM [facility] [employer] Phone: End: 11-27-2019 Urinalysis Reflex to Culture Urinalysis Reflex to Culture Lab STAT One Time for 1 Occurrences starting 11/27/2019 until 11/27/2019 [place] Comment on above: One Time for 1 Occur rences starting 11/27/2019 until 11/27/2019 End: 11-27-2019 Urine Drug Screen Urine Drug Screen Lab STAT One Time for 1 Occurrences starting 11/27/2019 until 11/27/2019 [facility] [place], [place] Comment on above: One Time for 1 Occur rences starting 11/27/2019 until 11/27/2019 End: 12-05-2023 VITAMIN D (25-HYDROXY,TOTAL) [facility] Work Phone: Comment on above: One Time for 1 Occur rences starting 12/05/2023 until 12/05/2023 Immunizations Immunization Date Immunization Notes Care Provider Fa mayda 10-25-2021 zoster vaccine recombinant Apolinar Cameron II, DO Work Phone: [facility] 10-25-2021 zoster vac recomb adjuvanted 50 MCG/0.5ML Recon Susp Apolinar Cameron II, DO Work Phone: [facility] 10-25-2021 zoster vaccine, unspecified formulation Apolinar Cameron II, DO Work Phone: [facility] 03-07-2021 diphtheria, tetanus toxoids and acellular pertussis vaccine, unspecified formulation Apolinar Cameron II, DO Work Phone: [facility] 03-07-2021 tetanus toxoid, redu blanca diphtheria toxoid, and acellular pertussis vaccine, adsorbed Apolinar Cameron II, DO Work Phone: [facility] 03-07-2021 varicella zoster imm une globulin Apolinar Cameron II, DO Work Phone: [facility] 03-07-2021 zoster vaccine, live Apolinar Alfred ams II, DO Work Phone: [facility] Payers Date Payer Category Payer Medicaid [id number] 2020 Unknown [employer] [id number] 2020-Present [address] [place] [address] [id number] 2020 Unknown [id number] 2014 Unknown [employer] [facility] MEDICAID xxxxxxxxxxx 2014-Present [phone] CLAIMS DEPARTMENT [address] [place] [address] xxxxxxxxxxx [id number] 2014 Unknown [id number]. [id number] 1968 Unknown [id number] [id number] 1968 Unknown [id number] [id number] 1968 Unknown [id number] [id number] 1968 Unknown [id number] [id number] 1968 Unknown [id number] [id number] 1968 Unknown [id number] [id number] 1968 Unknown [id number] [id number] 1968 Unknown [id number] [id number] 1968 Unknown [id number] [id number] 1968 Unknown [id number] [id number] 1968 Unknown [id number] [id number] 1968 Unknown [id number] [id number] 1968 Unknown [id number] [id number] 1968 Unknown [id number] Social History Date Type Detail Facility Start: 11-27-2019 End: 12-11-2023 Tobacco smoking status NHIS Current every day smoker [place] Start: 11-27-2019 End: 10-02-2022 Cigarettes smoked current (pack per day) - Reported [place] Start: 11-27-2019 End: 12-11-2023 Alcohol intake Current drinker of alcohol (finding) [place] Start: 11-27-2019 Alcohol Comment atleast a pint every day [place] Start: 1970 Sex Assigned At Not on file [place], [place] Start: 10-25-2021 End: 12-11-2023 Tobacco use and exposure Smokeless tobacco non-user [facility] Start: 10-25-2021 Alcohol intake 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 Phone: Start: 11-27-2019 History SDOH Alcohol Comment atleast a pint every day [facility] [employer] Phone: History of tobacco use Cigarette Smoker [facility] [employer] Phone: Start: 10-02-2022 End: 04-30-2023 Tobacco use panel [facility] [employer] Phone: Adolescent depressio n screening assessment 2 [facility] [employer] Phone: Has the [employer], or [employer] threatened to shut off services in your home in past 12Mo No [facility] (I/We) worried whemelva er (my/our) food would run out before (I/we) got money to buy more. Never true [employer] Work Phone: At any time in the p ast 12 months, were you homeless or living in [facility] [including now]? 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 Referred for orthopedic evaluation, reviewed OARRS and stressed importance of alcohol cessation. Hypokalemia: In the setting of nausea and vomiting. K 3.4. Replaced, improved. Right hip pain: With inability to ambulate due to pain on arrival. Secondary to right hip osteoarthritis with degenerative changes and questionable osteonecrosis. Continue lidocaine patch and Flexeril. Added [place] for homegoing breakthrough needs. Has a follow-up [...] Your Medications These medications were sent to [facility] [id number] - [place] [address] - [address], [facility] [id number] hydroCODone-acetaminophen 5-325 MG TABS lidocaine 5 % PTCH patch Physician(s) Family: Apolinar Cameron II (Inactive), , Address: [address] [place] [address] Future Appointments Date Time Provider Department Center 12/11/2023 1:00 PM Mariia Govea MD [address] [place] [address] 12/31/2023 9:30 AM Teresa Mo MD [address] [facility] Follow Up: Apolinar Cameron II, DO [address] [facility] [address] Call Additional Information: Patient seen and examined day of discharge. For more information regarding patient's care, including complete radiology reports, please contact [facility] Medical Records at . Patient instructions, including [...] 12/07/23, 3:43 PM documented in this encounter [facility] Work Phone: 12-07-2023 Hospital course Narrative [facility] Medicine / Discharge Summary Angella Fernandez Account: [id number] Admitted: 12/06/2023 Discharge Date/Time: 12/07/23 / 3:43 [...] control plan and prescribed short course of [place] to be used for breakthrough pain needs. Referred for orthopedic evaluation, reviewed OARRS and stressed importance of alcohol cessation. Hypokalemia: In the setting of nausea and vomiting. K 3.4. Replaced, improved. Right hip pain: With inability to ambulate due to pain on arrival. Secondary to right hip osteoarthritis with degenerative changes and questionable osteonecrosis. Continue lidocaine patch and Flexeril. Added [place] for homegoing breakthrough needs. Has a follow-up [...] These medications were sent to [facility] [id number] [place] [address] - [address], [facility] [id number] hydroCODone-acetaminophen 5-325 MG TABS lidocaine 5 % PTCH patch Physician(s) Family: Apolinar Cameron II (Inactive), , Address: [address] [facility] [address] / [facility] [address] Future Appointments Date Time Provider Department Center 12/11/2023 1:00 PM Mariia Govea MD 07[facility] 12/31/2023 9:30 AM Teresa Mo MD [address] [facility] Follow Up: Apolinar Cameron II, DO [address] [facility] [address] [facility] [address] Call Additional Information: Patient seen and examined day of discharge. For more information regarding patient's care, including complete radiology reports, please contact [facility] Medical Records at . Patient instructions, including [...] 12/07/23, 3:43 PM documented in this encounter [facility] [employer] Phone: 12-07-2023 History of Presen t illness [...] he need/choose. Monik Gray BA, RN Rounding Nurse/Chief Knowledge Officer [facility] Medicine / Inpatient Progress Note 12/06/23 Angella Fernandez 1970 [id number] Assessment/Plan: Angella Fernandez is a 53 y.o. [...] chart for all vitals, diagnostic data, and franchise consultant notes. I discussed patient's care with RN, dry charge process attendant, Pharmacy, PT, Chief Knowledge Officer, and Geodesist. Bp has been elevated. VSS otherwise, afebrile. [...] reason you did not call your provider? Rosman needed to be seen and went to [...] to a potential discharge planning gap? No Chief Knowledge Officer 30 Day Initial Assessment: Chart reviewed in [facility]. Patient has had an initial assessment completed within the past 30 days. Please refer to assessment completed on 12/04 by rifle case repairer GERONIMO. general operations manager met with patient/family. Explained role and function of Chief Knowledge Officer in multidisciplinary team. Contact number provided for questions. Previous initial assessment reviewed with patient/family for accuracy and any changes since last assessment. Patient confirms no changes in assessment / Patient provided the following updates since last assessment: Rosman very dizzy and lightheaded and returned for help Reason for admission: Rosman ill Anticipated discharge disposition: home Patient Goals for Discharge: pain free Final plan will be determined closer to discharge, pending therapy and medical team recommendations. Patient/family verbalized understanding and agreement with the plan of care. Patient/family have no questions at this time. general operations manager will continue to follow patient with multidisciplinary team for ongoing assessment of needs and for discharge planning. Medical team updated. Case Management assessed patient and determined to be high risk for readmission. Case Management will assist in discharge planning. Notes to follow. Monik Gray BA RN Rounding Nurse/Chief Knowledge Officer [facility] documented in this encounter [facility] Work Phone: 12-07-2023 History of Presen t [...] he need/choose. Monik Gray BA, RN Rounding Nurse/Chief Knowledge Officer [facility] Medicine / Inpatient Progress Note 12/06/23 Angella Fernandez 1970 [id number] Assessment/Plan: Angella Fernandez is a 53 y.o. [...] chart for all vitals, diagnostic data, and franchise consultant notes. I discussed patient's care with RN, dry charge process attendant, Pharmacy, PT, Chief Knowledge Officer, and Geodesist. Bp has been elevated. VSS otherwise, afebrile. [...] reason you did not call your provider? Rosman needed to be seen and went to [...] to a potential discharge planning gap? No Chief Knowledge Officer 30 Day Initial Assessment: Chart reviewed in [facility]. Patient has had an initial assessment completed within the past 30 days. Please refer to assessment completed on 12/04 by rifle case repairer GERONIMO. general operations manager met with patient/family. Explained role and function of Chief Knowledge Officer in multidisciplinary team. Contact number provided for questions. Previous initial assessment reviewed with patient/family for accuracy and any changes since last assessment. Patient confirms no changes in assessment / Patient provided the following updates since last assessment: Rosman very dizzy and lightheaded and returned for help Reason for admission: Rosman ill Anticipated discharge disposition: home Patient Goals for Discharge: pain free Final plan will be determined closer to discharge, pending therapy and medical team recommendations. Patient/family verbalized understanding and agreement with the plan of care. Patient/family have no questions at this time. general operations manager will continue to follow patient with multidisciplinary team for ongoing assessment of needs and for discharge planning. Medical team updated. Case Management assessed patient and determined to be high risk for readmission. Case Management will assist in discharge planning. Notes to follow. Monik Gray BA, RN Rounding Nurse/Chief Knowledge Officer [facility] documented in this encounter [facility] Phone: 12-07-2023 Hospital Discharg e instructions [...] through Care Everywhere.[facility] and Pain Control ([facility]) (Mexican)Alcohol Withdrawal: General Info (Mexican)acetaminophen and hydrocodone (Mexican)documented in this encounter [facility] [employer] Phone: 12-07-2023 Hospital Discharg e instructions Martha [...] through Care Everywhere.[facility] Pain Control ([facility]) (Mexican)Alcohol Withdrawal: General Info (Mexican)acetaminophen and hydrocodone (Mexican)documented in this encounter [facility] Phone: 12-07-2023 Plan of care note [...] Withdrawal Acute, Risk/Actual (Adult) CPG). Outcome: Progressing [facility] 12-07-2023 Miscellaneous Notes Problem: Patient Care Overview [...] CPG). Outcome: Progressing documented in this encounter [facility] Phone: 12-07-2023 Miscellaneous Notes Problem: Patient [...] CPG). Outcome: Progressing documented in this encounter [employer] Phone: 12-06-2023 Plan of care note Problem: [...] Withdrawal Acute, Risk/Actual (Adult) CPG). Outcome: Progressing [facility] [employer] Phone: 12-06-2023 Plan of care note Problem: [...] Withdrawal Acute, Risk/Actual (Adult) CPG). Outcome: Progressing [facility] Work Phone: 12-06-2023 History and physical note [facility] Medicine / History and Physical Note 12/06/23 Angella Fernandez 1970 [id number] Assessment/Plan: Angella Fernandez is a 53 y.o. [...] input(s): INR in the last 72 hours. [facility] [employer] Phone: 12-06-2023 History and physical note [facility] Medicine / History and Physical Note 12/06/23 Angella Fernandez 1970 [id number] Assessment/Plan: Angella Fernandez is a 53 y.o. [...] last 72 hours. documented in this encounter [facility] [employer] Phone: 12-06-2023 History and physical note [facility] Medicine / History and Physical Note 12/06/23 Angella Fernandez 1970 [id number] Assessment/Plan: Angella Fernandez is a 53 y.o. [...] last 72 hours. documented in this encounter [employer] Phone: 12-06-2023 Plan of care note Problem: [...] Withdrawal Acute, Risk/Actual (Adult) CPG). Outcome: Progressing [facility] [employer] Phone: 12-06-2023 Physician Emergency department Note Chief [...] through alcohol withdrawal 2 weeks ago at [facility]. Per the discharge summary the hospitalist discuss [...] this encounter, patient medical records available in [facility] locally or with care everywhere Medical Decision [...] syndrome with complication Hector Edwards DO 12/06/23351 [employer] Phone: 12-06-2023 Emergency department Note Chief Complaint [...] through alcohol withdrawal 2 weeks ago at [facility]. Per the discharge summary the hospitalist discuss [...] this encounter, patient medical records available in [facility] locally or with care everywhere Medical Decision [...] withdrawal syndrome with complication Hector EdwardsDO 12/06/23 1993 Pt to ED via EMS c/o chronic R hip pain and alcohol detox . Vomiting on arrival. documented in this encounter [employer] Phone: 12-06-2023 Emergency department Note Chief Complaint [...] through alcohol withdrawal 2 weeks ago at [facility]. Per the discharge summary the hospitalist discuss [...] this encounter, patient medical records available in [employer] locally or with care everywhere Medical Decision [...] Vomiting on arrival. documented in this encounter [email or web address] [facility] Work Phone: 12-06-2023 Emergency department Note Pt to ED via EMS c/o chronic R hip pain and alcohol detox . Vomiting on arrival. [facility] 12-05-2023 Hospital course Narrative [facility] Medicine / Discharge Summary Angella Fernandez Account: [id number] Admitted: 12/04/2023 Discharge Date/Time: 12/05/23 / 12:49 [...] through alcohol withdrawal 2 weeks ago at [facility], was not on phenobarbital taper per patient. [...] Family: Apolinar Cameron II (Inactive), , Address: [address] [place] [address] / [place] [phone] Future Appointments Date Time Provider Department Center 12/11/2023 1:00 PM Mariia Govea MD [address] [place] [address] 12/31/2023 9:30 AM Teresa Mo MD [address] [place] [address] Follow Up: Apolinar Cameron II, DO [address] [phone] Follow up Call on Friday to schedule your hospital follow up in 7-10 days Additional Information: Patient seen and examined day of discharge. For more information regarding patient's care, including complete radiology reports, please contact [facility] Medical Records at . Patient instructions, including [...] 12/05/23, 12:49 PM documented in this encounter [facility] Work Phone: 12-05-2023 Hospital course Narrative [facility] Medicine / Discharge Summary Angella Fernandez Account: [id number] Admitted: 12/04/2023 Discharge Date/Time: 12/05/23 / 12:49 [...] through alcohol withdrawal 2 weeks ago at [facility], was not on phenobarbital taper [...] Family: Apolinar Cameron II (Inactive), , Address: [address] [place] [address] / [place] [phone] Future Appointments Date Time Provider Department Center 12/11/2023 1:00 PM Mariia Govea MD [address] [place] [address] 12/31/2023 9:30 AM Teresa Mo MD [address] [place] [address] Follow Up: Apolinar Cameron II, DO [address] [place] [address] Follow up Call on Friday to schedule your hospital follow up in 7-10 days Additional Information: Patient seen and examined day of discharge. For more information regarding patient's care, including complete radiology reports, please contact [facility] Medical Records at . Patient instructions, including [...] 12/05/23, 12:49 PM documented in this encounter [facility] Phone: 12-05-2023 Miscellaneous Notes Discharge instructions [...] Continues on ciwa documented in this encounter [employer] Phone: 12-05-2023 Miscellaneous Notes Discharge instructions complete [...] Continues on ciwa documented in this encounter [facility] [employer] Phone: 12-05-2023 Nurse Note Discharge instructions complete at this time, signs and symptoms to review, medications, and follow ups reviewed. IV removed per protocol. All questions answered. \ Spring Sexton RN [facility] 12-05-2023 History of Presen t illness Narrative [...] alcohol intoxication. Pt with recent rehab at [facility] for alcocol. Received a steroid injection [...] of Assistance: Independent Supine to Sit Mobility Carbon Level: Supine->Sit: independent Sit to Supine Mobility Carbon Level: Sit->Supine: independent Sit to Stand Transfer Carbon Level: Sit->Stand: independent Stand to Sit Transfer Carbon Level: Stand->Sit: independent Gait Assessment Carbon Level: Gait: independent Ambulation Distance (Feet): 30 [...] in medical rounds for discharge to home. general operations manager met with the patient/family/spouse in [...] days [address] [facility] [address] DEC 10 NEW PATIENT-MEM with Mariia Govea MD Nov 1:00 PM (Arrive by 12:45 PM) [facility] Orthopedics & Sports Med at [facility] [address] [place] [address] [facility] [address] DEC 30 NEW PATIENT-MEM with Teresa Mo MD Friday 9:30 AM (Arrive by 9:15 AM) [facility] Sleep Medicine [address] 2nd Floor [facility] [address] Arrive at: Please enter through the Outpatient Pavilion - Entrance E The Chief Knowledge Officer has updated the patient's nurse regarding the [...] any additional discharge planning needs. Vangie Medellin RNwafer line worker RN For assistance on evenings (after 4:30pm) please call the hospital packerhead machine operator at and have the Chief Knowledge Officer municipal bond trader paged. On weekends from 6am to 4pm [...] Transportation will be provided by family. The Chief Knowledge Officer has updated the patient's nurse Andre regarding [...] any additional discharge planning needs. Vangie Medellin RNwafer line worker RN For assistance on evenings (after 4:30pm) please call the hospital packerhead machine operator at and have the Chief Knowledge Officer municipal bond trader paged. On weekends from 6am to 4pm please contact the Case Management Nurse at documented in this encounter [employer] Phone: 12-05-2023 History of Presen t illness [...] alcohol intoxication. Pt with recent rehab at [facility] for alcocol. Received a steroid injection [...] of Assistance: Independent Supine to Sit Mobility Carbon Level: Supine->Sit: independent Sit to Supine Mobility Carbon Level: Sit->Supine: independent Sit to Stand Transfer Carbon Level: Sit->Stand: independent Stand to Sit Transfer Carbon Level: Stand->Sit: independent Gait Assessment Carbon Level: Gait: independent Ambulation Distance (Feet): 30 [...] in medical rounds for discharge to home. general operations manager met with the patient/family/spouse in [...] follow up in 7-10 days [address] [facility] [address] [place] [address] DEC 10 NEW PATIENT-MEM with Mariia Govea MD Nov 1:00 PM (Arrive by 12:45 PM) [facility] Orthopedics & Sports Med at [address] [address] DEC 30 NEW PATIENT-MEM with Teresa Mo MD Friday 9:30 AM (Arrive by 9:15 AM) [facility] Sleep Medicine [address] [place] [address] 2nd Floor [facility] [address] Arrive at: Please enter through the Outpatient Pavilion - Entrance E The Chief Knowledge Officer has updated the patient's nurse regarding the [...] any additional discharge planning needs. Vangie Medellin RNwafer line worker RN For assistance on evenings (after 4:30pm) please call the hospital packerhead machine operator at and have the Chief Knowledge Officer municipal bond trader paged. On weekends from 6am to 4pm [...] Transportation will be provided by family. The Chief Knowledge Officer has updated the patient's nurse Andre regarding [...] any additional discharge planning needs. Vangie Medellin RNwafer line worker RN For assistance on evenings (after 4:30pm) please call the hospital packerhead machine operator at and have the Chief Knowledge Officer municipal bond trader paged. On weekends from 6am to 4pm please contact the Case Management Nurse at documented in this encounter [facility] Phone: 12-05-2023 [facility] Discharg e instructions Vangie Medellin RN - [...] through Care Everywhere.[facility] and Pain Control ([facility]) (Mexican)Hip Pain (Mexican)Alcohol Detoxification and Withdrawal (Mexican)documented in this encounter [facility] Phone: 12-05-2023 [facility] Discharg e instructions Vangie Medellin RN - [...] through Care Everywhere.[facility] ([facility]) (Mexican)Hip Pain (Mexican)Alcohol Detoxification and Withdrawal (Mexican)documented in this encounter [facility] Phone: 12-04-2023 Plan of care note [...] DTs (delirium tremens) Note: Continues on ciwa [facility] Work Phone: 12-04-2023 Emergency department Note Report given to Denice CORREA [facility] 12-04-2023 Emergency department Note Report given to Denice [facility] ATTENDING NOTE Chief Complaint: Hip [...] Interpreted by me Rhythm: sinus Rate: 117 Jelm: normal Ectopy: PVCs Conduction: normal ST Segments: [...] alcohol use would not help his symptoms terminal clerk, he did report that when he drinks [...] still occur. Jeanie Churchill MD, PhD 12/04/23 8613 Pt presents to the ED with c/o increased pain with his R hip, pt states. He is a pt of the pain clinic and had an injection 1.5 weeks ago. Pt admits to drinking lots and lots of whiskey to help with my pain. Last drink yesterday documented in this encounter [employer] Phone: 12-04-2023 Emergency department Note Report given [...] Interpreted by me Rhythm: sinus Rate: 117 Jelm: normal Ectopy: PVCs Conduction: normal ST Segments: [...] alcohol use would not help his symptoms terminal clerk, he did report that when he drinks [...] still occur. Jeanie Churchill MD, PhD 12/04/23 8269 Pt presents to the ED with c/o increased pain with his R hip, pt states. He is a pt of the pain clinic and had an injection 1.5 weeks ago. Pt admits to drinking lots and lots of whiskey to help with my pain. Last drink yesterday documented in this encounter [facility] [employer] Phone: 12-04-2023 History and physical note [facility] Medicine / History and Physical Note 12/04/23 Angella Fernandez 1970 [id number] Assessment/Plan: Angella Fernandez is a 53 y.o. male with a PMH of alcohol use, recent admission 10/23-10/29/23 for NSTEMI who presented to 12/04/2023 with R hip pain and impending alcohol withdrawal. Alcohol Withdrawal: last drink 10/04/23. Recently went through alcohol withdrawal 2 weeks ago at [facility], was not on phenobarbital taper [...] day prior. Was recently in rehab at [facility] and did not drink for 2 weeks up until 48hours ago when hip pain started again. He relapsed with alcohol in September after being sober for 10 years per chart review. States was on an oral steroid while at [facility] and says did OK with it. [...] hip, ortho consult depending on hospital course. [facility] [employer] Work Phone: 12-04-2023 History and physical note [facility] Medicine / History and Physical Note 12/04/23 Angella Fernandez 1970 [id number] Assessment/Plan: Angella Fernandez is a 53 y.o. male with a PMH of alcohol use, recent admission 10/23-10/29/23 for NSTEMI who presented to 12/04/2023 with R hip pain and impending alcohol withdrawal. Alcohol Withdrawal: last drink 10/04/23. Recently went through alcohol withdrawal 2 weeks ago at [facility], was not on phenobarbital taper [...] day prior. Was recently in rehab at [facility] and did not drink for 2 weeks up until 48hours ago when hip pain started again. He relapsed with alcohol in September after being sober for 10 years per chart review. States was on an oral steroid while at [facility] and says did OK with it. [...] on hospital course. documented in this encounter [facility] [employer] Work Phone: 12-04-2023 History and physical note [facility] Medicine / History and Physical Note 12/04/23 Angella Fernandez 1970 [id number] Assessment/Plan: Angella Fernandez is a 53 y.o. male with a PMH of alcohol use, recent admission 10/23-10/29/23 for NSTEMI who presented to 12/04/2023 with R hip pain and impending alcohol withdrawal. Alcohol Withdrawal: last drink 10/04/23. Recently went through alcohol withdrawal 2 weeks ago at [facility], was not on phenobarbital taper [...] day prior. Was recently in rehab at [facility] and did not drink for 2 weeks up until 48hours ago when hip pain started again. He relapsed with alcohol in September after being sober for 10 years per chart review. States was on an oral steroid while at [facility] and says did OK with it. [...] on hospital course. documented in this encounter [employer] Phone: 12-04-2023 Physician Emergency department Note ED [...] Interpreted by me Rhythm: sinus Rate: 117 Jelm: normal Ectopy: PVCs Conduction: normal ST Segments: [...] alcohol use would not help his symptoms correction, he did report that when he drinks [...] occur. Jeanie Churchill MD, PhD 12/04/23 1448 [employer] Phone: 12-04-2023 Emergency department Note Pt presents to the ED with c/o increased pain with his R hip, pt states. He is a pt of the pain clinic and had an injection 1.5 weeks ago. Pt admits to drinking lots and lots of whiskey to help with my pain. Last drink yesterday [employer] Phone: 10-24-2023 History of Presen t illness [...] set up. Monik Gray BA, RN Rounding Nurse/Chief Knowledge Officer [facility] Acute Care Physical Therapy Evaluation AM-PAC score(s): [...] of Assistance: Independent Supine to Sit Mobility Carbon Level: Supine->Sit: independent Sit to Supine Mobility Carbon Level: Sit->Supine: independent Sit to Stand Transfer Carbon Level: Sit->Stand: independent Skilled Intervention/Details: Sit->Stand: pt reported hip pain during transfer Stand to Sit Transfer Carbon Level: Stand->Sit: independent Gait Assessment Carbon Level: Gait: independent Ambulation Distance (Feet): 30 [...] represents the current Physical Therapy Discharge Summary. [facility] Medicine / Inpatient Progress Note 10/24/23 Angella Fernandez 1970 [id number] Assessment/Plan: Angella Fernandez is a 53 y.o. [...] 7 days. (NCL-1) Sheree Abbasi RD, LD [phone] Nutrition Care Monitor Point Value Diet Order: [...] = 4 pts): N/A NA Total Points: REIJ Marie Movement Therapist 3 pts 10/24/23 1037 Referral Information Arrived From home or self-care Readmission Information Was patient readmitted within 30 Days? No Information Source Information Source patient Outpatient Providers Outpatient Providers Updated In IHIS Yes Contact Information Chief Knowledge Officer/SW Added to Care Team Yes This Medical Insurance Claims Processor is Primary Chief Knowledge Officer/SW Yes Chief Knowledge Officer Name Monik Reynoso Gray Chief Knowledge Officer's Living Environment Lives With spouse () Living [...] Yes Initial Discharge Planning Home Care Services (CREDIT AND LOAN COLLECTIONS SUPERVISOR) No Home Therapies (CREDIT AND LOAN COLLECTIONS SUPERVISOR) None DME (CREDIT AND LOAN COLLECTIONS SUPERVISOR) None Patient Goal for Discharge Get better [...] Social Determinants of Health Resource Handout [id number]. pot pusher/SW met with patient in the patient's room [...] at home. 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 Home Health/DME/O2/dialysis/Medical supplies/Community Resources: (company, liter flow, frequency) Health Insurance/RX/Financial Needs: Patient's insurance coverage is provided through [employer] and preferred pharmacy is listed. Anticoagulation/ Specialty Medications: (chemo, injectables, expensive/ hard to get medications) Medication: Prescribed by: Emotional/Psychological/Substanc e Abuse Treatment History: Yes, familiar with all local AA meetings. MH and SDH paperwork provided Values/Beliefs: Patient does not have cultural or yazidism beliefs that may impact discharge planning and/or [...] by TBD. Reports he has children in [place]. Declined to name Other Considerations: (housing/food/financial insecurity, [...] to follow. Monik Gray BA, RN Rounding Nurse/Chief Knowledge Officer [facility] Pt discussed in medical discharge rounds. No [...] Transportation home: per Celina Prater MS, RN, Chief Knowledge Officer For assistance on evenings (after 4:30pm) please call the hospital packerhead machine operator at and have the Chief Knowledge Officer municipal bond trader paged. On weekends from 6am to 4pm [...] pts): N/A NA Total Points: REJI Marie Movement Therapist 3 pts documented in this encounter [facility] Work Phone: 10-24-2023 Hospital course Narrative [facility] Medicine / Discharge Summary Angella Fernandez Account: [id number] Admitted: 10/23/2023 Discharge Date/Time: 10/29/23 7:19 PM [...] Your Medications These medications were sent to [facility] [id number] [place] [address] - [address] [place] [address] lidocaine 5 % PTCH patch LORazepam 0.5 MG TABS Thera-M TABS You can get these medications from any pharmacy Bring a paper prescription for each of these medications thiamine 100 MG TABS Physician(s) Family: Apolinar Cameron II (Inactive), , Address: [address] [place] [address] / [place] [address] Future Appointments Date Time Provider Department Center 10/31/2023 11:30 AM Apolinar Cameron II, DO [facility] Follow Up: Apolinar Cameron II, DO [address] [place] [phone] Call Left on after hours machine 10/24 Additional Information: Patient seen and examined day of discharge. For more information regarding patient's care, including complete radiology reports, please contact [facility] Medical Records at . Patient instructions, including [...] 10/29/23, 7:19 PM documented in this encounter [facility] Phone: 10-23-2023 Miscellaneous Notes Pt to room resting in bed drowsy, cooperative. Oxygen in 80s on room air 2LNC applied. 1909 oxygen 83% on 2LNC increased to 4LNC. documented in this encounter [facility] Phone: 10-23-2023 Nurse Note Pt to room resting in bed drowsy, cooperative. Oxygen in 80s on room air 2LNC applied. 1909 oxygen 83% on 2LNC increased to 4LNC. [facility] 10-23-2023 History and physical note [facility] Medicine / History and Physical Note 10/23/23 Angella Fernandez 1970 [id number] Assessment/Plan: Angella Fernandez is a 53 y.o. [...] around 4 days ago. Has been drinking [place] since. States drank a whole bottle [...] no focal deficits. Mild tremor. Psych: Anxious [facility] [employer] Work Phone: 10-23-2023 History and physical note [facility] Medicine / History and Physical Note 10/23/23 Angella Fernandez 1970 [id number] Assessment/Plan: Angella Fernandez is a 53 y.o. [...] around 4 days ago. Has been drinking [place] since. States drank a whole bottle [...] tremor. Psych: Anxious documented in this encounter [employer] Phone: 10-23-2023 Note IMPRESSION: 1. Suboptimal evaluation [...] tachycardia with a rate of 102. A NC interval of 150 and a QTC of 479. There was no acute injury pattern identified or ST elevations. ED Course MEDICAL DECISION MAKING Number and Complexity of Problems Differential Diagnosis includes but is not limited to: Rib pain/chest pain/hip pain/alcohol intoxication/MS/NSTEMI [facility] Data External documents reviewed: nursing notes this encounter, patient medical records available in [facility] locally or with care everywhere My EKG [...] pain, unspecified type RAMOS Whipple 10/23/23 [facility] [employer] Phone: 10-23-2023 Emergency department Note Chief Complaint [...] tachycardia with a rate of 102. A NC interval of 150 and a QTC of 479. There was no acute injury pattern identified or ST elevations. ED Course MEDICAL DECISION MAKING Number and Complexity of Problems Differential Diagnosis includes but is not limited to: Rib pain/chest pain/hip pain/alcohol intoxication/MS/NSTEMI [facility] Data External documents reviewed: nursing notes this encounter, patient medical records available in [facility] locally or with care everywhere My EKG [...] beers this morning. documented in this encounter [facility] Work Phone: 10-23-2023 Emergency department Note Pt [...] past year. Had 6 beers this morning. [facility] 08-29-2023 History of Presen t illness Narrative [...] and emg referral documented in this encounter [facility] Phone: 04-30-2023 Emergency department Note Pt reminded to keep his arm straight for IVF to infuse. [facility] Phone: 04-30-2023 Emergency department Note Pt [...] BY MOUTH EVERY EVENING zoster vaccine live 26054 UNT/0.65ML Recon Susp 0.65 mL, Subcutaneous, ONCE [...] follow up with cardio & [facility] as well. States he completed inpatient alcohol treatment at [facility] in the past. States he was [...] still occur. DO Ihsan Beltre DO 04/30/23 1745 Pt arrives by EMS from home with c/o chest pain, shortness of breath and headache. Pt reports that he has had chest discomfort for several days, has a hx of alcohol abuse, last drink was yesterday. documented in this encounter [employer] Phone: 04-30-2023 Emergency department Note Pt IVF on an IV pump, pt not cooperative with keeping his arm straight, education given. [email or web address] [facility] [employer] Phone: 04-30-2023 Physician Emergency department Note Chief [...] BY MOUTH EVERY EVENING zoster vaccine live [id number] UNT/0.65ML Recon Susp 0.65 mL, Subcutaneous, ONCE [...] follow up with cardio & [facility] as well. States he completed inpatient alcohol treatment at [facility] in the past. States he was [...] still occur. DO Ihsan Beltre DO 04/30/23 4194 [employer] Phone: 04-30-2023 Emergency department Note Pt arrives by EMS from home with c/o chest pain, shortness of breath and headache. Pt reports that he has had chest discomfort for several days, has a hx of alcohol abuse, last drink was yesterday. [employer] Phone: 01-31-2023 History of Presen t illness [...] - to PT documented in this encounter [employer] Phone: 10-02-2022 History of Presen t illness [...] alcohol and tobacco documented in this encounter [employer] Phone: 10-25-2021 History of Presen t illness [...] Recheck 6 months documented in this encounter [facility] note Diagnosis Essential hypertension, benign- Primary Need for viral immunization Need for prophylactic vaccination and inoculation against other viral diseases Muscle tension headache Tension headache Restless leg Restless legs syndrome (RLS) documented [facility] Diagnosis Acute alcoholic intoxication with complication (HCC)- Primary documented in this encounter [facility] Work Phone: evaluation note* Diagnosis Essential hypertension, benign- Primary Bronchitis, not specified as acute or chronic Panic anxiety syndrome Panic disorder without agoraphobia documented in this encounter [facility] [employer] Work Phone: evaluation note* Diagnosis Essential hypertension, benign- Primary Restless leg Restless legs syndrome (RLS) Primary insomnia Persistent disorder of initiating or maintaining sleep Special screening for malignant neoplasm of prostate Bilateral anterior knee pain Pain in joint, lower leg documented in this encounter [facility] [employer] Phone: evaluation note* Diagnosis Chest pain, unspecified type- Primary Alcohol use disorder documented in this encounter [facility] [employer] Work Phone: evaluation note* Diagnosis Essential hypertension, benign- Primary Neuralgia of left upper extremity Episodic tension-type headache, not intractable Episodic tension type headache documented in this encounter [facility] [employer] Phone: evaluation note* Diagnosis Alcohol intoxication in active alcoholic- Primary Acute alcoholic intoxication in alcoholism, continuous Chest pain, unspecified type Alcohol intoxication in active alcoholic without complication documented in this encounter [employer] Phone: Evaluation note* Diagnosis Hip pain- Primary Pain in joint, pelvic region and thigh Hypertensive urgency Unspecified essential hypertension Alcohol withdrawal syndrome with complication Osteoarthritis of right hip, unspecified osteoarthritis type documented in this encounter [employer] Phone: evaluation note* Diagnosis Hip pain- Primary Pain in joint, pelvic region and thigh Hypertensive urgency Unspecified essential hypertension Alcohol withdrawal syndrome with complication Osteoarthritis of right hip, unspecified osteoarthritis type documented in this encounter [employer] Phone: evaluation note* Diagnosis Alcohol abuse with withdrawal- Primary Chronic right hip pain Pain in joint, pelvic region and thigh Alcohol withdrawal syndrome with complication Pain of right hip documented in this encounter [facility] [employer] Phone: Evaluation note* Diagnosis Alcohol abuse with withdrawal- Primary Chronic right hip pain Pain in joint, pelvic region and thigh Alcohol withdrawal syndrome with complication Pain of right hip documented in this encounter [facility] [employer] Phone: Evaluation note* Diagnosis 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 * Alcohol Intoxication: Acute (Mexican) * Alcohol Detoxification and Withdrawal (Mexican) [facility]* Attachments The following attachments cannot be sent through Care Everywhere. * Chest Pain (Mexican) * Alcohol Use Disorder: General Info (Mexican) [facility]* Attachments The following attachments cannot be sent through Care Everywhere. * Pain and Pain Control ([facility]) (Mexican) * 9 Ways to Cut Back on Drinking: Quick List (Mexican) documented in this [facility] Phone: Reason for referral (narrative)* Consultation (Routine) - New Request Specialty Diagnoses / Procedures Referred By Contac t Referred To Contact Sleep Medicine Diagnoses Primary insomnia Apolinar Cameron II, DO [address] [phone] Referral ID Status Reason Start Date Expiration Date V isits Requested Visits Authorized [id number] New Request 01/31/2023 02/25/2024 1 1 * Adjunctive Therapy (Routine) - New Request Specialty Diagnoses / Procedures Referred By Contac t Referred To Contact Physical Therapy Diagnoses Bilateral anterior knee pain Apolinar Cameron II, DO [address] [facility] [address] [place] [address] Referral ID Status Reason Start Date Expiration Date V isits Requested Visits Authorized [id number] New Request 01/31/2023 02/25/2024 1 1 [facility] [employer] Phone: reason for referral (narrative)* Unlisted Procedure Code (Routine) - New Request Specialty Diagnoses / Procedures Referred By Contac t Referred To Contact Procedures NO MECHANICAL DVT PROPHYLAXIS Elvis Colbert, OPERATIONS OFFICER-SHEET METAL MECHANIC [address] [place] [address] Referral ID Status Reason Start Date Expiration Date V isits Requested Visits Authorized [id number] New Request 10/23/2023 11/16/2024 1 1 * Radiology (Emergency) - New Request Specialty Diagnoses / Procedures Referred By Contac t Referred To Contact Procedures ECG Varghese Mike PA [address] [place] [address] [place] [address] Referral ID Status Reason Start Date Expiration Date V isits Requested Visits Authorized [id number] New Request 10/23/2023 11/16/2024 1 1 [email or web address] [facility] Phone: reason for referral (narrative)* Consultation (Routine) - New Request Specialty Diagnoses / Procedures Referred By Contac t Referred To Contact Orthopaedics Diagnoses Osteoarthritis of right hip, unspecified osteoarthritis type Amy Odom DO [address] [place] [address] Referral ID Status Reason Start Date Expiration Date V isits Requested Visits Authorized [id number] New Request 12/05/2023 12/29/2024 1 1 * (Routine) Specialty Diagnoses / Procedures Referred By Contac t Referred To Contact [facility] Referral ID Status Reason Start Date Expiration Date Visits Re quested Visits Authorized * (Routine) Specialty Diagnoses / Procedures Referred By Contac t Referred To Contact [facility] Referral ID Status Reason Start Date Expiration Date Visits Re quested Visits Authorized * Unlisted Procedure Code (Routine) - New Request Specialty Diagnoses / Procedures Referred By Contac t Referred To Contact Procedures NO MECHANICAL DVT PROPHYLAXIS Leesa Dee PA [address] [place] [address] Referral ID Status Reason Start Date Expiration Date V isits Requested Visits Authorized [id number] New Request 12/04/2023 12/28/2024 1 1 * Radiology (Emergency) - New Request Specialty Diagnoses / Procedures Referred By Contac t Referred To Contact Procedures ECG Jeanie Churchill MD, PhD [address] [place] [address] Referral ID Status Reason Start Date Expiration Date V isits Requested Visits Authorized [id number] New Request 12/04/2023 12/28/2024 1 1 [facility] Phone: reason for referral (narrative)* Consultation (Routine) - New Request Specialty Diagnoses / Procedures Referred By Contac t Referred To Contact Multispecialty Diagnoses Avascular necrosis of right femoral head Primary osteoarthritis of right hip Mariia Govea MD [address] [place] [id number] Referral ID Status Reason Start Date Expiration Date V isits Requested Visits Authorized [id number] New Request 12/11/2023 01/04/2025 1 1 [facility] [employer] Phone: Summary Purpose Family History No Family History Records FoundNo Family History Records FoundNo Family History Records FoundNo Family History Records Found Advance Directives No Advanced Directives Records FoundDocuments on File Type Date Recorded Patient Water System Operator Expl anation Advance Directives and Living Will Power of Store Cashier Documents on File Type Date Recorded Patient Water System Operator Expl anation ACP-Advance Directive ACP-Power of Store Cashier Latest Code Status on File Code Status [...] through Care Everywhere. * Alcohol Intoxication: Acute (Mexican) * Dizziness (Mexican) documented in this encounter Assessments Diagnosis Acute alcoholic intoxication with complication (HCC)- Primary Dizziness Dizziness and giddiness Reason for Referral Specialty Diagnoses / Procedures Referred By Contac t Referred To Contact Procedures ECG Ihsan Pink, DO [address] [place] [address] Referral ID Status Reason Start Date Expiration Date V isits Requested Visits Authorized [id number] New Request 04/30/2023 05/24/2024 1 1 Specialty Diagnoses / Procedures Referred By Contac t Referred To Contact Diagnoses Neuralgia of left upper extremity Apolinar Cameron II, DO [address] [address] Apolinar Cameron II, DO [address] [phone] Referral ID Status Reason Start Date Expiration Date V isits Requested Visits Authorized [id number] New Request 08/29/2023 09/22/2024 1 1 Specialty Diagnoses / Procedures Referred By Contac t Referred To Contact Procedures ECG Hector Edwards, DO [address] [place] [address] Referral ID Status Reason Start Date Expiration Date V isits Requested Visits Authorized [id number] New Request 12/06/2023 12/30/2024 1 1 Referral ID Status Reason Start Date Expiration Date V isits Requested Visits Authorized [id number] New Request 12/06/2023 12/30/2024 1 1 Additional Source Comments (unrecognized sect ion and content) No Status Records FoundNo Status Records FoundNo Status Records FoundNo Status Records Found INFORMATION SOURCE (unrecogn ized section and content) DATE CREATED AUTHOR 05/01/2020 [facility] DATE CREATED AUTHOR AUTHOR'S ORGANIZ ATION 03/08/2022 [facility] DATE CREATED AUTHOR AUTHOR'S ORGANIZ ATION 11/12/2023 [facility] DATE CREATED AUTHOR AUTHOR'S ORGANIZ ATION 12/12/2023 [facility] Reason for Visit (unrecogniz ed section and [...] in active alcoholic Hector Edwards, DO [address] [place] [address] [address] Phone: Referral ID Status Reason Start Date Expiration Date Visits Re quested Visits Authorized [id number] 1 1 Reason Comments Hip Pain Sweats Specialty Diagnoses / Procedures Referred By Contac t Referred To Contact Diagnoses Hip pain Ihsan Pink DO [address] [place] [address] [address] Phone: [phone] Referral ID Status Reason Start Date Expiration Date Visits Re quested Visits Authorized [id number] 1 1 Reason Comments Hip Pain Reason Comments Pain Patient here today f or pain in right hip which started about 2 months ago. He states he got an injection lateral hip at the [facility] more than two weeks ago [...] unspecified osteoarthritis type Amy Odom, DO [address] [place] [address] Referral ID Status Reason Start Date Expiration Date V isits Requested Visits Authorized [id number] New Request 12/05/2023 12/29/2024 1 1 Care Teams (unrecognized sec tion and content) Train Gateman Relationship Specialty Start Date End Date Apolinar Cameron II, DO [address] [facility] [address] [place] [address] PCP - General Family Medicine 04/09/16 Glenny Kent MD [address] [place] [address] Neurologist Neurology 04/09/16 Train Gateman Relationship Specialty Start Date End Date Apolinar Cameron II, MD [address] [facility] [address] [place] [address] PCP - General Engagement Director 11/27/19 [employer] Relationship Specialty Start Date End Date Apolinar Cameron II, DO [address] [facility] [address] [place] [address] PCP - General Family Medicine 04/09/16 Glenny Kent MD [address] [place] [address] Neurologist Neurology 04/09/16 Train Gateman Relationship Specialty Start Date End Date Apolinar Cameron II, [address] [place] [address] PCP - General Family Medicine 04/09/16 Glenny Kent MD [address] [place] [address] Neurologist Neurology 04/09/16 Train Gateman Relationship Specialty Start Date End Date Apolinar Cameron II, DO [address] [place] [address] PCP - General Family Medicine 04/09/16 Glenny Kent MD [address] [place] [address] Neurologist Neurology 04/09/16 Train Gateman Relationship Specialty Start Date End Date Apolinar Cameron II, DO [address] [place] [address] PCP - General Family Medicine 04/09/16 Glenny Kent MD [address] [place] [address] Neurologist Neurology 04/09/16 Train Gateman Relationship Specialty Start Date End Date Apolinar Cameron II, [address] [place] [address] PCP - General Family Medicine 04/09/16 Glenny Kent MD [address] [place] [address] Neurologist Neurology 04/09/16 Train Gateman Relationship Specialty Start Date End Date Apolinar Cameron II, DO [address] [place] [address] PCP - General Family Medicine 04/09/16 Glenny Kent MD [address] [place] [address] Neurologist Neurology 04/09/16 Train Gateman Relationship Specialty Start Date End Date Apolinar Cameron II, DO [address] [place] [address] PCP - General Family Medicine 04/09/16 Glenny Kent MD [address] [place] [address] Neurologist Neurology 04/09/16 Train Gateman Relationship Specialty Start Date End Date Apolinar Cameron II, DO [address] [place] [address] PCP - General Family Medicine 04/09/16 Glenny Kent MD [address] [place] [address] Neurologist Neurology 04/09/16 Train Gateman Relationship Specialty Start Date End Date Apolinar Cameron II, [address] [place] [address] PCP - General Family Medicine 04/09/16 Glenny Kent MD [address] [place] [address] Neurologist Neurology 04/09/16 Train Gateman Relationship Specialty Start Date End Date Apolinar Cameron II, [address] [facility] [address] [place] [address] PCP - General Family Medicine 04/09/16 Glenny Kent MD [address] [place] [address] Neurologist Neurology 04/09/16 Scheduled Active and Recently [...] at 0945 0934 ($$New Bag$$ - Provider: Trupti Gamino RN)1119 (Stopped - Provider: Trupti Gamino [...] Rain Arredondo RN) 250 (Given - Provider: Rani Arredondo, SUNNY) LORazepam (ATIVAN) injection 2 mg [...] 0800 0805 (Given - Provid er: Andre Sxeton RN) Sodium chloride 0.9% IV solution 1,000 [...] Extravasation Risk 1345 (Given - Provider: Nimo Byres RN) Ondansetron (ZOFRAN-ODT) disintegrating tablet 4 mg(Linked [...] Wilma Rodríguez RN) 0000 (Given - Provider: Vanige Kruger, RN)0758 (Given - Provider: Wilma Rodríguez [...] BE BASED ON THE PRIMARY CLINICAL RECORDS. [employer] provides no warranty or guarantee of the accuracy or completeness of information in this document.
--- NOTE | 2023-12-29 20:07 | PC.NURSE ---
This RN entered patient room at 1925 to check on him, assess IV and ensure his belongings were bagged and ready to go up to med/surg. It was discovered that the magnesium infusion had never started because the line was clamped, so the infusion was started at this time. Also the patient is stood at the bedside to use the urinal at this time. He is able to stand, but yells out in pain while standing and also while getting back into bed. His shoes are removed and belongings are bagged. He asks for a bottle of water and is given one. He is alert and oriented at this time, although slightly slurring his words.
[2023-12-29 20:33] VITALS: BP 131/85; PULSE 88; TEMP 36.4; O2SAT 90; BMI 28.3
[2023-12-29] MEDS: LORAZEPAM 1 MG TABLET PO (22:05)
[2023-12-29] MEDS: KETOROLAC TROMETHAMINE 30 MG/ML VIAL 15 MG IVP (22:05)
[2023-12-29] MEDS: LACTATED RINGER'S SOLUTION 1,000 ML 150 ML IV (23:00)
[2023-12-29 23:45] VITALS: BP 114/64; PULSE 93; TEMP 36.8; O2SAT 92
[2023-12-29 23:51] VITALS: PULSE 108
[2023-12-30] VITALS (19 sets, daily range): BP systolic 137–153; BP diastolic 72–96; PULSE 80–105; TEMP 36.4–37; O2SAT 90–104
[2023-12-30] MEDS: LACTATED RINGER'S SOLUTION 1,000 ML 150 ML IV ×3 (05:19→19:16)
[2023-12-30 05:44] LABS: Basophils Percent Auto 0.7 % (0.2-2.0); Eosinophils Percent Auto 0.4 % (0.9-7.0); Hematocrit 36.1 % (42.0-54.0); Hemoglobin 12.3 g/dL (14.0-18.0); Immature Granulocytes Abs Auto 0.03 10^3/uL (0.00-0.03); Immature Granulocytes Pct Auto 0.5 % (0.0-0.5); Lymphocytes Absolute Auto 0.9 10^3/uL (1.2-3.8); Lymphocytes Percent Auto 15.5 % (20.5-60.0); Mean Corpuscular HGB Conc 34.1 g/dL (29.9-35.2); Mean Corpuscular Hemoglobin 32.8 pg (25.9-34.0); Mean Corpuscular Volume 96.3 fL (80.0-94.0); Mean Platelet Volume 9.1 fL (9.5-13.5); Monocytes Absolute Auto 0.8 10^3/uL (0.3-0.8); Monocytes Percent Auto 13.2 % (1.7-12.0); Neutrophils Percent Auto 69.7 % (43.0-75.0); Platelet Count 111 10^3/uL (150-450); Red Blood Count 3.75 10^6/uL (4.70-6.10); Red Cell Distribution Width 15.4 % (11.0-15.0); White Blood Count 5.7 10^3/uL (4.0-11.0)
[2023-12-30 06:07] LABS: INR 0.95; Prothrombin Time 10.1 sec (9.0-11.6)
[2023-12-30 06:13] LABS: Alanine Aminotransferase 56 U/L (16-63); Albumin Level 2.7 g/dL (3.4-5.0); Alkaline Phosphatase 87 U/L (46-116); Anion Gap 15.6; Aspartate Amino Transferase 81 U/L (15-37); BUN Creatinine Ratio 23.4; Bilirubin Total 1.9 mg/dL (0.2-1.0); Calcium 8.3 mg/dL (8.5-10.1); Carbon Dioxide 25.2 mmol/L (21.0-32.0); Chloride 104 mmol/L (98-107); Estimated GFR (African America >60 (>=60); Estimated GFR (Non-African Ame >60 (>=60); Globulin 2.8 g/dL; Glucose 87 mg/dL (74-106); Magnesium 1.5 mg/dL (1.8-2.4); Phosphorus 2.1 mg/dL (2.6-4.7); Sodium 142 mmol/L (136-145); Total Protein 5.5 g/dL (6.4-8.2)
[2023-12-30 06:26] LABS: Potassium 2.8 mmol/L (3.5-5.1)
[2023-12-30] MEDS: MULTIVITAMIN TABLET 1 TAB PO (10:00)
[2023-12-30] MEDS: KETOROLAC TROMETHAMINE 30 MG/ML VIAL 15 MG IVP (10:00)
[2023-12-30] MEDS: MAGNESIUM OXIDE 400 MG TABLET PO ×2 (10:00→20:19)
[2023-12-30] MEDS: PANTOPRAZOLE SODIUM 40 MG VIAL IV (10:00)
[2023-12-30] MEDS: THIAMINE MONONITRATE (VIT B1) 100 MG TABLET PO (10:00)
[2023-12-30] MEDS: POTASSIUM PHOSPHATE,MONOBASIC 500 MG TABLET PO ×4 (10:00→21:18)
[2023-12-30] MEDS: LORAZEPAM 1 MG TABLET PO ×2 (10:00→20:19)
[2023-12-30] MEDS: AMLODIPINE BESYLATE 5 MG TABLET 10 MG PO (10:00)
[2023-12-30] MEDS: MAGNESIUM SULFATE IN WATER 4 GM/100 ML PIGGYBACK IV (10:00)
[2023-12-30] MEDS: FOLIC ACID 1 MG TABLET PO (10:00)
--- NOTE | 2023-12-30 10:59 | CM.NOTE ---
Rounds made with Dr. Jacobo, discussed electrolyte concerns with pt and alcohol intake. Pt voices understanding of causes of electrolyte imbalance. Pt does voice that he is starting to go through withdraw, feeling very anxious and diaphoretic. RN notified to medicate pt.
--- NOTE | 2023-12-30 11:08 | P.HP_ITS ---
HPI H&P: HPI History of Present Illness Chief complaint: HIP PAIN Electrolyte disorder Narrative: Patient presented to the emergency room for evaluation of his hip pain he is about to go into alcohol rehab treatment program. Also found to have significant electrolyte disorders. He is admitted for workup and treatment of same When I saw patient up on the medical surgical floor, he had persistent cough throughout the evaluation. Also severe generalized weakness with difficulty standing secondary to the weakness. Also felt like he was going to go through withdrawal with headache, nausea, tremor, diaphoresis. Opioid HPI Opioid Management Most Recent Opioid Data: Last Pain Scale 6 12/30/23 12:38 Last Pain Assessment 12/30/23 12:36 Last MAR Pain Assessment 12/30/23 12:38 Last ORT Total Score 3 12/29/23 20:33 Last ORT Risk Category Low Risk 12/29/23 20:33 Ur Phencyclidine Scrn Negative (NEGATIVE) 12/29/23 18:12 Review of Systems ROS Status of ROS 10 or more systems reviewed and unremark able except as noted in history and below PFSH PFSH Medical History High blood pressure ?I10 - Essential (primary) hypertension (ICD-10) Right hip pain ?M25.551 - Pain in right hip (ICD-10) Alcohol abuse ?F10.10 - Alcohol abuse, uncomplicated (ICD-10) Surgical History (Updated 12/29/23 @ 20:54 by Amarilis Anaya) Hx of tonsillectomy ?Z90.89 - Acquired absence of other organs (ICD-10) Family History (Updated 12/29/23 @ 20:51 by Amarilis Anaya) Grandfather Family history of CHF (congestive heart failure) Other Family history of COPD (chronic obstructive pulmonary disease) Social History (Updated 12/29/23 @ 20:53 by Amarilis Anaya) Within the past year, how often did you have a drink containing alcohol: 4 or more times a week Within the past year, how many standard drinks containing alcohol did you have on a typical day: 7 to 9 Within the past year, how often did you have six or more drinks on one occasion: monthly Total score: 8 Score interpretation: A score of 4 or more indicates drinking is likely to affect patient's safety. Smoking status: Current every day smoker Non-prescribed substance use: denies use Previous occupational history: none Highest level of school completed/degree received: some college, no degree Are you now , , , , never or living with a partner: In a typical week, how many times do you talk on the telephone with family, friends, or neighbors: once per week How often do you get together with friends or relatives: once per week How often do you attend lutheran or yazidism services: never Do you belong to any clubs or organizations such as lutheran groups unions, fraternal or athletic groups, or school groups: no Total score: 0 Score interpretation: A score of less than or equal to 1 indicates the most socially isolated. Little interest or pleasure in doing things: not at all Feeling down, depressed, or hopeless: not at all Feel stressed/tense/nervous/anxious/difficulty sleeping: only a little Do you think of yourself as: straight/heterosexual Gender Identity: male Meds Home Medications and Allergies Home Medications ?Medication ?Instructions ?Recorded ?Confirmed ?Type amlodipine 10 mg tablet 10 mg PO DAILY 12/29/23 12/29/23 History lidocaine 5 % topical patch 1 patch topical Q24H PRN pain 12/30/23 12/30/23 History Allergies Allergy/AdvReac Type Severity Reaction Status Date / Time No Known Drug Allergies Allergy Verified 12/29/23 17:19 Exam Constitutional Vital Signs, click to edit/add: Last Vital Signs Temp 97.8 F 12/30/23 10:16 Pulse 98 H 12/30/23 10:16 Resp 18 12/30/23 10:16 BP 149/83 H 12/30/23 10:16 Pulse Ox 92 L 12/30/23 10:16 O2 Del Method Room Air 12/30/23 10:16 Documenting provider has reviewed patient's vital signs: yes Common normals: apparent distress (Looks very uncomfortable, coughing throughout the evaluation mild tremor) Chest Common normals: inspection of chest normal Respiratory Common normals: abnormal respiratory effort (Coughing throughout the evaluation) Auscultation: rhonchi and wheezes Cardio Common normals: regular rhythm Rate: tachycardic GI Common normals: Normal to inspection, nondistended, normoactive bowel sounds present Neuro Other: tremor, weakness is upon trying to stand. Results Labs Labs: Short CBC 12/29/23 12/30/23 Range/Units 17:40 04:58 WBC 7.7 5.7 (4.0-11.0) 10^3/uL Hgb 15.0 12.3 L (14.0-18.0) g/dL Hct 43.2 36.1 L (42.0-54.0) % Plt Count 159 111 L (150-450) 10^3/uL BMP 12/29/23 12/30/23 17:40 04:58 Sodium 139 142 Potassium 2.8 L* 2.8 L* Chloride 98 104 Carbon Dioxide 28.4 25.2 BUN 20.0 H 15.0 Creatinine 0.94 0.64 L Glucose 95 87 Calcium 8.7 8.3 L Liver Function 12/29/23 12/30/23 Range/Units 17:40 04:58 Total Bilirubin 1.8 H 1.9 H (0.2-1.0) mg/dL AST 103 H 81 H (15-37) U/L ALT 67 H 56 (16-63) U/L Alkaline Phosphatase 98 87 (46-116) U/L Albumin 3.2 L 2.7 L (3.4-5.0) g/dL Assessment and Plan Assessment and Plan (1) Acute alcohol intoxication: (2) Acute pain of right hip: (3) Complication of electrolyte disorder: Plan Sinus tachycardia, mild altered mental status with significant weakness secondary to alcohol abuse and withdrawal symptoms, CIWA scale of 10, will add patient [id number] Librium. As needed benzodiazepines. Anemia-this could be related to his given some fluids overnight, but is down 2.7 g so we will check occult blood Thrombocytopenia-secondary to alcohol abuse and bone marrow suppression Hypokalemia-supplement IV and orally Hypophosphatemia-need to correct this to improve rule other electrolytes. Add oral potassium phosphate Hypomagnesemia-supplemented IV and oral Acute exacerbation of COPD with acute bronchitis-start antibiotics and aerosol treatments. Steroids Right hip pain secondary to avascular necrosis-will try steroids. Inpatient criteria: Severity of his weakness secondary to alcohol abuse, with the rapidness of his withdrawal, already a positive CIWA scale, starting patient on [id number] Librium, as needed benzodiazepines-likely 2 to 3-day hospitalization secondary to alcohol withdrawal syndrome.
[2023-12-30] MEDS: POTASSIUM CHLORIDE 40 MEQ in 0.9 % SODIUM CHLORIDE 250 ML 67.5 MEQ IV (12:31)
[2023-12-30] MEDS: CLORDIAZEPOXIDE HCl 25 MG CAPSULE PO ×4 (12:31→22:20)
--- NOTE | 2023-12-30 13:21 | SWNOTE1 ---
SW called and spoke to nurse at [facility]. They do not need any information currently on patient. She will check with dormitory supervisor and call back if anything is needed. SW let her know there is no discharge today and SW will keep them updated. SW let them know pt does plan on returning at discharge. Case management did speak with pt and his plan is to return to [facility] at discharge.
[2023-12-30] MEDS: LIDOCAINE 5% PATCH 1 PATCH TOPICAL (14:46)
[2023-12-30] MEDS: METHYLPREDNISOLONE SOD SUCC PF 125 MG/2 ML VIAL IVP ×2 (14:47→20:00)
[2023-12-30 15:37] LABS: BUN Creatinine Ratio 16.4; Calcium 8.3 mg/dL (8.5-10.1); Carbon Dioxide 28.2 mmol/L (21.0-32.0); Chloride 100 mmol/L (98-107); Estimated GFR (African America >60 (>=60); Estimated GFR (Non-African Ame >60 (>=60); Glucose 93 mg/dL (74-106); Potassium 3.2 mmol/L (3.5-5.1); Sodium 140 mmol/L (136-145)
[2023-12-30] MEDS: LEVOFLOXACIN IN DEXTROSE 5 % 750 MG/150 ML IV.SOLN 100 MG IV (16:47)
[2023-12-30] MEDS: KETOROLAC TROMETHAMINE 30 MG/ML VIAL IVP (18:32)
[2023-12-30] MEDS: IPRATROPIUM/ALBUTEROL SULFATE 3 ML AMPUL.NEB IH (22:24)
[2023-12-31] VITALS (21 sets, daily range): BP systolic 117–158; BP diastolic 78–97; PULSE 77–114; TEMP 36.4–36.6; O2SAT 86–100
[2023-12-31] MEDS: LACTATED RINGER'S SOLUTION 1,000 ML 150 ML IV ×2 (01:14→07:49)
[2023-12-31] MEDS: METHYLPREDNISOLONE SOD SUCC PF 125 MG/2 ML VIAL IVP ×2 (03:02→07:29)
[2023-12-31] MEDS: CLORDIAZEPOXIDE HCl 25 MG CAPSULE PO ×3 (04:00→13:38)
[2023-12-31 04:09] LABS: Eosinophils Percent Auto 0.3 % (0.9-7.0); Hematocrit 38.4 % (42.0-54.0); Hemoglobin 13.4 g/dL (14.0-18.0); Immature Granulocytes Abs Auto 0.03 10^3/uL (0.00-0.03); Immature Granulocytes Pct Auto 0.9 % (0.0-0.5); Lymphocytes Absolute Auto 0.1 10^3/uL (1.2-3.8); Lymphocytes Percent Auto 3.7 % (20.5-60.0); Mean Corpuscular HGB Conc 34.9 g/dL (29.9-35.2); Mean Corpuscular Hemoglobin 33.3 pg (25.9-34.0); Mean Corpuscular Volume 95.3 fL (80.0-94.0); Mean Platelet Volume 9.3 fL (9.5-13.5); Monocytes Absolute Auto 0.1 10^3/uL (0.3-0.8); Monocytes Percent Auto 3.4 % (1.7-12.0); Neutrophils Percent Auto 91.7 % (43.0-75.0); Platelet Count 102 10^3/uL (150-450); Red Blood Count 4.03 10^6/uL (4.70-6.10); Red Cell Distribution Width 14.6 % (11.0-15.0); White Blood Count 3.2 10^3/uL (4.0-11.0)
[2023-12-31 04:25] LABS: Ammonia <10 umol/L (11-32)
[2023-12-31 04:29] LABS: Alanine Aminotransferase 58 U/L (16-63); Albumin Globulin Ratio 0.8; Albumin Level 2.8 g/dL (3.4-5.0); Alkaline Phosphatase 89 U/L (46-116); Anion Gap 15.5; Aspartate Amino Transferase 66 U/L (15-37); BUN Creatinine Ratio 10.5; Calcium 8.5 mg/dL (8.5-10.1); Carbon Dioxide 27.4 mmol/L (21.0-32.0); Chloride 100 mmol/L (98-107); Estimated GFR (African America >60 (>=60); Estimated GFR (Non-African Ame >60 (>=60); Globulin 3.5 g/dL; Glucose 175 mg/dL (74-106); Magnesium 1.6 mg/dL (1.8-2.4); Phosphorus 2.9 mg/dL (2.6-4.7); Sodium 140 mmol/L (136-145); Total Protein 6.3 g/dL (6.4-8.2)
[2023-12-31] MEDS: POTASSIUM PHOSPHATE,MONOBASIC 500 MG TABLET PO (05:04)
[2023-12-31 06:15] LABS: Potassium 2.9 mmol/L (3.5-5.1)
[2023-12-31] MEDS: POTASSIUM CHLORIDE 40 MEQ in 0.9 % SODIUM CHLORIDE 250 ML 67.5 MEQ IV (07:30)
[2023-12-31] MEDS: AMLODIPINE BESYLATE 5 MG TABLET 10 MG PO (08:59)
[2023-12-31] MEDS: MAGNESIUM OXIDE 400 MG TABLET PO ×2 (08:59→21:41)
[2023-12-31] MEDS: PANTOPRAZOLE SODIUM 40 MG VIAL IV (08:59)
[2023-12-31] MEDS: FOLIC ACID 1 MG TABLET PO (08:59)
[2023-12-31] MEDS: THIAMINE MONONITRATE (VIT B1) 100 MG TABLET PO (08:59)
[2023-12-31] MEDS: MULTIVITAMIN TABLET 1 TAB PO (08:59)
[2023-12-31] MEDS: KETOROLAC TROMETHAMINE 30 MG/ML VIAL IVP ×3 (09:05→21:40)
--- NOTE | 2023-12-31 09:34 | CM.NOTE ---
Rounds made with Dr. Jacobo, discussed with pt about continued electrolyte imbalance and reasons for imbalance. Pt will possibly discharge to [facility] tomorrow for alcohol rehab.
--- NOTE | 2023-12-31 09:41 | P.PN_ITS ---
Progress Note: Subjective Subjective Interval history: Patient denies any further withdrawal symptoms. Just more the diffuse pain. Exam Constitutional Vital Signs, click to edit/add: Last Vital Signs Temp 97.7 F 12/31/23 07:51 Pulse 95 H 12/31/23 08:00 Resp 20 12/31/23 07:51 BP 144/91 H 12/31/23 07:51 Pulse Ox 92 L 12/31/23 07:51 O2 Del Method Room Air 12/31/23 07:51 Common normals: no apparent distress Chest Common normals: inspection of chest normal Respiratory Common normals: normal respiratory effort and no retractions Auscultation: rhonchi Cardio Common normals: regular rate and regular rhythm Neuro Common normals: oriented x3, CN's II-XII intact bilaterally and moves all extremities Progress Note: Objective Labs Labs: Short CBC 12/31/23 Range/Units 04:00 WBC 3.2 L (4.0-11.0) 10^3/uL Hgb 13.4 L (14.0-18.0) g/dL Hct 38.4 L (42.0-54.0) % Plt Count 102 L (150-450) 10^3/uL BMP 12/30/23 12/31/23 15:15 04:00 Sodium 140 140 Potassium 3.2 L 2.9 L* Chloride 100 100 Carbon Dioxide 28.2 27.4 BUN 9.0 6.0 L Creatinine 0.55 L 0.57 L Glucose 93 175 H Calcium 8.3 L 8.5 Liver Function 12/31/23 Range/Units 04:00 Total Bilirubin 2.0 H (0.2-1.0) mg/dL AST 66 H (15-37) U/L ALT 58 (16-63) U/L Alkaline Phosphatase 89 (46-116) U/L Albumin 2.8 L (3.4-5.0) g/dL Progress Note: A&P Assessment and Plan (1) Acute alcohol intoxication: (2) Acute pain of right hip: (3) Complication of electrolyte disorder: Plan Admission Dx: Sinus tachycardia, elevated liver function test, mild altered mental status with significant weakness secondary to alcohol abuse and withdrawal symptoms, CIWA scale of 10,-overall feels somewhat improved from alcohol withdrawal symptoms standpoint. Will change his Librium to as needed. If electrolyte abnormalities continue to improve possible discharge to rehab tomorrow Anemia-this could be related to his given some fluids overnight, better slightly today. Check an occult blood results Neutropenia and thrombocytopenia-secondary to alcohol abuse and bone marrow suppression Hypokalemia-supplement IV and orally-continue to push for IV supplementation Hypophosphatemia-need to correct this to improve rule other electrolytes. This has been corrected. Changing patient to potassium chloride Hypomagnesemia-supplemented IV and oral again today [id number], will decrease steroids today. Acute exacerbation of COPD with acute bronchitis-start antibiotics and aerosol treatments. Steroids Right hip pain secondary to avascular necrosis-will try steroids. Toradol and Norflex Inpatient criteria: Severity of his weakness secondary to alcohol abuse, with the rapidness of his withdrawal, already a positive CIWA scale, starting patient on [id number] Librium, as needed benzodiazepines-since he is improved we will decrease the Librium to as needed. Possible discharge in a.m. He is electrolyte abnormalities corrected prior to going to rehab ?
[2023-12-31] MEDS: ORPHENADRINE 60 MG/ 2 ML VIAL IV ×2 (10:14→21:41)
[2023-12-31] MEDS: POTASSIUM CHLORIDE 10 MEQ ER TABLET 20 MEQ PO ×3 (10:14→21:41)
[2023-12-31] MEDS: MAGNESIUM SULFATE IN WATER 4 GM/100 ML PIGGYBACK IV (10:15)
[2023-12-31] MEDS: IPRATROPIUM/ALBUTEROL SULFATE 3 ML AMPUL.NEB IH ×2 (11:08→22:24)
[2023-12-31 13:26] LABS: Anion Gap 16.9; BUN Creatinine Ratio 11.4; Calcium 9.2 mg/dL (8.5-10.1); Carbon Dioxide 26.2 mmol/L (21.0-32.0); Chloride 99 mmol/L (98-107); Estimated GFR (African America >60 (>=60); Estimated GFR (Non-African Ame >60 (>=60); Glucose 288 mg/dL (74-106); Potassium 3.1 mmol/L (3.5-5.1); Sodium 139 mmol/L (136-145)
[2023-12-31] MEDS: METHYLPREDNISOLONE SOD SUCC PF 125 MG/2 ML VIAL 60 MG IVP ×2 (13:38→21:41)
[2023-12-31] MEDS: LEVOFLOXACIN IN DEXTROSE 5 % 750 MG/150 ML IV.SOLN 100 MG IV (13:51)
[2023-12-31] MEDS: LORAZEPAM 1 MG TABLET PO ×2 (15:30→21:41)
[2023-12-31] MEDS: NICOTINE 21 MG PATCH.TD24 TD (15:30)
[2023-12-31] MEDS: CLORDIAZEPOXIDE HCl 25 MG CAPSULE 50 MG PO (17:37)
[2023-12-31 19:13] LABS: Anion Gap 14.6; BUN Creatinine Ratio 16.7; Calcium 9.5 mg/dL (8.5-10.1); Carbon Dioxide 24.8 mmol/L (21.0-32.0); Chloride 101 mmol/L (98-107); Estimated GFR (African America >60 (>=60); Estimated GFR (Non-African Ame >60 (>=60); Glucose 187 mg/dL (74-106); Potassium 3.4 mmol/L (3.5-5.1); Sodium 137 mmol/L (136-145)
[2023-12-31] MEDS: DOXEPIN HCL 25 MG CAPSULE PO (21:41)
[2023-12-31] MEDS: ENSURE HP 237 ML LIQUID PO (21:41)
[2024-01-01] VITALS (12 sets, daily range): BP systolic 128–148; BP diastolic 84–89; PULSE 78–116; TEMP 36.3–36.6; O2SAT 92–104
[2024-01-01] MEDS: ACETAMINOPHEN 500 MG TABLET 1000 MG PO (01:35)
[2024-01-01] MEDS: CLORDIAZEPOXIDE HCl 25 MG CAPSULE 50 MG PO (01:35)
[2024-01-01] MEDS: METHYLPREDNISOLONE SOD SUCC PF 125 MG/2 ML VIAL 60 MG IVP (01:36)
[2024-01-01] MEDS: LORAZEPAM 1 MG TABLET PO (04:45)
[2024-01-01] MEDS: KETOROLAC TROMETHAMINE 30 MG/ML VIAL IVP ×2 (04:45→10:38)
[2024-01-01] MEDS: IPRATROPIUM/ALBUTEROL SULFATE 3 ML AMPUL.NEB IH ×2 (05:19→11:51)
[2024-01-01 05:35] LABS: Basophils Percent Auto 0.1 % (0.2-2.0); Eosinophils Percent Auto 0.3 % (0.9-7.0); Hematocrit 36.4 % (42.0-54.0); Hemoglobin 12.4 g/dL (14.0-18.0); Immature Granulocytes Abs Auto 0.12 10^3/uL (0.00-0.03); Immature Granulocytes Pct Auto 1.2 % (0.0-0.5); Lymphocytes Absolute Auto 0.2 10^3/uL (1.2-3.8); Lymphocytes Percent Auto 2.1 % (20.5-60.0); Mean Corpuscular HGB Conc 34.1 g/dL (29.9-35.2); Mean Corpuscular Hemoglobin 33.2 pg (25.9-34.0); Mean Corpuscular Volume 97.6 fL (80.0-94.0); Mean Platelet Volume 9.7 fL (9.5-13.5); Monocytes Absolute Auto 0.4 10^3/uL (0.3-0.8); Monocytes Percent Auto 4.3 % (1.7-12.0); Platelet Count 113 10^3/uL (150-450); Red Blood Count 3.73 10^6/uL (4.70-6.10); Red Cell Distribution Width 15.4 % (11.0-15.0); White Blood Count 9.8 10^3/uL (4.0-11.0)
[2024-01-01 05:59] LABS: Alanine Aminotransferase 61 U/L (16-63); Albumin Globulin Ratio 0.9; Albumin Level 2.9 g/dL (3.4-5.0); Alkaline Phosphatase 106 U/L (46-116); Anion Gap 14.7; Aspartate Amino Transferase 71 U/L (15-37); BUN Creatinine Ratio 19.4; Bilirubin Total 1.4 mg/dL (0.2-1.0); Calcium 8.7 mg/dL (8.5-10.1); Carbon Dioxide 25.3 mmol/L (21.0-32.0); Chloride 103 mmol/L (98-107); Estimated GFR (African America >60 (>=60); Estimated GFR (Non-African Ame >60 (>=60); Globulin 3.2 g/dL; Glucose 152 mg/dL (74-106); Magnesium 1.9 mg/dL (1.8-2.4); Phosphorus 2.7 mg/dL (2.6-4.7); Sodium 140 mmol/L (136-145); Total Protein 6.1 g/dL (6.4-8.2)
[2024-01-01] MEDS: POTASSIUM CHLORIDE 10 MEQ ER TABLET 20 MEQ PO (06:11)
[2024-01-01] MEDS: POTASSIUM CHLORIDE 40 MEQ in 0.9 % SODIUM CHLORIDE 250 ML 67.5 MEQ IV (08:35)
[2024-01-01] MEDS: MULTIVITAMIN TABLET 1 TAB PO (08:35)
[2024-01-01] MEDS: THIAMINE MONONITRATE (VIT B1) 100 MG TABLET PO (08:35)
[2024-01-01] MEDS: AMLODIPINE BESYLATE 5 MG TABLET 10 MG PO (08:35)
[2024-01-01] MEDS: PANTOPRAZOLE SODIUM 40 MG VIAL IV (08:35)
[2024-01-01] MEDS: METHYLPREDNISOLONE SOD SUCC PF 40 MG/ML VIAL IVP (08:35)
[2024-01-01] MEDS: MAGNESIUM OXIDE 400 MG TABLET PO (08:35)
[2024-01-01] MEDS: FOLIC ACID 1 MG TABLET PO (08:35)
--- NOTE | 2024-01-01 09:39 | P.DS_ITS ---
DS: Providers Provider Date of admission: 12/30/23 13:11 Primary care physician: Non-Staff Physician, Consults: 12/30/23 09:00 Occupational Therapy Eval and Treat Routine Reason for consultation: Right hip pain Has provider been notified: No Physical Therapy Eval and Treat Routine Reason for consultation: Right hip pain Has provider been notified: No DS: Diagnosis Discharge Diagnosis (1) Acute alcohol intoxication: (2) Acute pain of right hip: (3) Complication of electrolyte disorder: Plan Admission Dx: Sinus tachycardia, elevated liver function test, mild altered mental status with significant weakness secondary to alcohol abuse and withdrawal symptoms, CIWA scale of 10,-overall feels somewhat improved from alcohol withdrawal symptoms standpoint. Will change his Librium to as needed. If electrolyte abnormalities continue to improve possible discharge to rehab tomorrow Anemia-this could be related to his given some fluids overnight, better slightly today. Check an occult blood results Neutropenia and thrombocytopenia-secondary to alcohol abuse and bone marrow suppression Hypokalemia-supplement IV and orally-continue to push for IV supplementation Hypophosphatemia-need to correct this to improve rule other electrolytes. This has been corrected. Changing patient to potassium chloride Hypomagnesemia-supplemented IV and oral again today [id number], will decrease steroids today. Acute exacerbation of COPD with acute bronchitis-start antibiotics and aerosol treatments. Steroids Right hip pain secondary to avascular necrosis-will try steroids. Toradol and Norflex Inpatient criteria: Severity of his weakness secondary to alcohol abuse, with the rapidness of his withdrawal, already a positive CIWA scale, starting patient on [id number]-[id number] Librium, as needed benzodiazepines-since he is improved we will decrease the Librium to as needed. Possible discharge in a.m. He is electrolyte abnormalities corrected prior to going to rehab DS: Summary Hospital Course Hospital Course: Patient presented to the emergency room with increasing weakness, found to have severe electrolyte abnormalities including magnesium, potassium, phosphorus, also significant right hip pain. Throughout the hospitalization these medications were used to treat patient he also had acute flareup of his COPD. He was treated with antibiotics and steroids. He was given multiple doses of IV magnesium and IV potassium. Oral phosphorus after 1 day improved his phosphate level and it remained stable throughout the rest of the hospitalization. His strength definitely improved over the last 24 hours. Withdrawal symptoms were persisting until yesterday morning. He did get 1 dose of Librium yesterday morning. Feels overall better this morning. At this point he will be discharged to rehab. Medications see list. Follow-up PCP after rehab Time Spent with Patient Time attestation: Total time spent providing and/or coordinating discharge services: Exam Constitutional Vital Signs, click to edit/add: Last Vital Signs Temp 97.6 F 01/01/24 08:51 Pulse 108 H 01/01/24 08:51 Resp 18 01/01/24 08:51 BP 128/89 01/01/24 08:51 Pulse Ox 92 L 01/01/24 08:51 O2 Del Method Room Air 01/01/24 08:51 Common normals: no apparent distress Chest Common normals: inspection of chest normal Respiratory Common normals: normal respiratory effort and no retractions Auscultation: rhonchi Cardio Common normals: regular rate and regular rhythm Neuro Common normals: oriented x3, CN's II-XII intact bilaterally and moves all extremities DS: Data Data Completed and Pending Labs on day of discharge: Labs from last 24 hours 01/01/24 12/31/23 12/31/23 04:37 18:59 13:05 WBC 9.8 RBC 3.73 L Hgb 12.4 L Hct 36.4 L MCV 97.6 H MCH 33.2 MCHC 34.1 RDW 15.4 H Plt Count 113 L MPV 9.7 Neut % (Auto) 92.0 H Lymph % (Auto) 2.1 L Coffee % (Auto) 4.3 Eos % (Auto) 0.3 L Baso % (Auto) 0.1 L Neut # (Auto) 9.0 H Lymph # (Auto) 0.2 L Coffee # (Auto) 0.4 Eos # (Auto) 0.0 Baso # (Auto) 0.0 Abs Immat Gran (auto) 0.12 H Imm/Tot Granulo (auto) 1.2 H Sodium 140 137 139 Potassium 3.0 L 3.4 L 3.1 L Chloride 103 101 99 Carbon Dioxide 25.3 24.8 26.2 Anion Gap 14.7 14.6 16.9 BUN 14.0 16.0 10.0 Creatinine 0.72 0.96 0.88 Est GFR ( Amer) >60 >60 >60 Est GFR (Non-Af Amer) >60 >60 >60 BUN/Creatinine Ratio 19.4 16.7 11.4 Glucose 152 H 187 H 288 H Calcium 8.7 9.5 9.2 Phosphorus 2.7 Magnesium 1.9 Total Bilirubin 1.4 H AST 71 H ALT 61 Alkaline Phosphatase 106 Total Protein 6.1 L Albumin 2.9 L Globulin 3.2 Albumin/Globulin Ratio 0.9 Discharge Plan Discharge Disposition: Xfer Inpatient Rehab Fac Discharge Medications: New magnesium oxide 400 mg (241.3 mg magnesium) Tablet 400 mg PO BID Qty: 60 0RF potassium chloride 10 mEq Tablet,Er Particles/Crystals 20 meq PO TID Qty: 180 0RF prednisone 10 mg tablet 50 mg PO DAILY Qty: 47 0RF Rx Instructions: 5/day for 3 days. 4/day for 3 days, 3/day for 3 days, 2/day for 3 days, 1/day for 3 days, 1/2 /day for 4 days levofloxacin 750 mg tablet 750 mg PO DAILY 10 Days Qty: 10 0RF Continued amlodipine 10 mg tablet 10 mg PO DAILY lidocaine 5 % adhesive patch,medicated 1 patch topical Q24H PRN (Reason: pain) Rx Instructions: ON FOR 12 HOURS OFF FOR 12 HOURS Print Language: Moldovan Forms: Portal Instructions Follow Up Appointments: Follow up with Physician at [facility] Date/Time: 01/01/24 14:51
[2024-01-01] MEDS: ORPHENADRINE 60 MG/ 2 ML VIAL IV (10:38)
--- NOTE | 2024-01-01 14:51 | PC.NURSE ---
Patient had money locked in safe. Money was removed from safe and counted in front of patient with correct amount noted by patient. This flex o writer operator and Emily De La Vega RN counted money.
== END 2024-01-01 14:51 | DRG 775 ==
LOC: ER 18:41 → MS 19:55
PROVIDERS: Registered Nurse; Admitting Provider Family Medicine; Emergency Provider Emergency Medicine Emergency Medical Services; Visit Provider Family Medicine
DX: F10.139 Alcohol abuse with withdrawal, unspecified (principal); E87.6 Hypokalemia; E83.42 Hypomagnesemia; F10.129 Alcohol abuse with intoxication, unspecified; D64.9 Anemia, unspecified; D69.6 Thrombocytopenia, unspecified; E83.39 Other disorders of phosphorus metabolism; M25.551 Pain in right hip; J44.0 Chronic obstructive pulmonary disease with (acute) lower respiratory infection; J20.9 Acute bronchitis, unspecified; J44.1 Chronic obstructive pulmonary disease with (acute) exacerbation; M87.9 Osteonecrosis, unspecified; F17.210 Nicotine dependence, cigarettes, uncomplicated; Z90.89 Acquired absence of other organs; I10 Essential (primary) hypertension; Y90.8 Blood alcohol level of 240 mg/100 ml or more; R53.1 Weakness; R41.82 Altered mental status, unspecified; Z79.899 Other long term (current) drug therapy; R79.89 Other specified abnormal findings of blood chemistry; D70.9 Neutropenia, unspecified; R73.9 Hyperglycemia, unspecified; T38.0X5A Adverse effect of glucocorticoids and synthetic analogues, initial encounter
CPT/HCPCS: 36415; 71045; 73502; 80048; 80053; 80307; 80320; 82140; 83735; 84100; 85025; 85610; 87070; 93005; 94640; 94667; 94668; 94761; 96365; 96366; 96367; 96368; 96372; 96375; 96376; 97161; 97165; 99285; G0378; J2919; J3480